=== PATIENT | female | born 1985 | race Caucasian/White ===

== ENCOUNTER 2019-04-05 06:00 | Outpatient (RCR) | payer MEDICARE, MEDICAID, SELFPAY | END 2019-05-05 00:01 | LOC: SPT 06:00 | PROVIDERS: Family Provider Nurse Practitioner Family; Visit Provider Orthopaedic Surgery | DX: E76.219 Morquio mucopolysaccharidoses, unspecified (principal); M54.9 Dorsalgia, unspecified | CPT/HCPCS: 97110; 97140 ==

== ENCOUNTER → 2019-05-05 | Outpatient (CLI) | payer MEDICARE, MEDICAID, SELFPAY | PROVIDERS: Family Provider Nurse Practitioner Family; Visit Provider Nurse Practitioner | DX: E00-E89 Endocrine, nutritional and metabolic diseases (principal) | CPT/HCPCS: 96365; 96366; 96367; J1322; J1642; J2405; J7040; J7050 ==

== ENCOUNTER 2019-05-06 13:14 | Outpatient (RCR) | payer MEDICARE, MEDICAID, SELFPAY | END 2019-06-05 23:59 | disposition home or self-care (01) | LOC: SPT 13:14 | PROVIDERS: Family Provider Nurse Practitioner Family; PCP Internal Medicine Medical Oncology; Visit Provider Orthopaedic Surgery | DX: M54.9 Dorsalgia, unspecified (principal); E76.219 Morquio mucopolysaccharidoses, unspecified | CPT/HCPCS: 97140; 97164 ==

== ENCOUNTER 2019-05-13 07:58 | Outpatient (CLI) | payer MEDICARE, MEDICAID, SELFPAY ==
[2019-05-13] MEDS: diphenhydrAMINE 25 mg Capsule 50 MG PO (08:40)
[2019-05-13] MEDS: famotidine 20 mg Tablet PO (08:40)
[2019-05-13] MEDS: acetaminophen 325 mg Tablet 650 MG PO (08:40)
[2019-05-13] MEDS: sodium chloride 0.9% 250 ML 75 ML IV (08:56)
[2019-05-13] MEDS: LORazepam 0.5 mg Tablet PO (12:20)
== END 2019-05-13 07:59 | disposition home or self-care (01) ==
LOC: ONCMED 08:03
PROVIDERS: Family Provider Nurse Practitioner Family; PCP Internal Medicine Medical Oncology; Visit Provider Nurse Practitioner
DX: E00-E89 Endocrine, nutritional and metabolic diseases (principal)
CPT/HCPCS: 96365; 96366; 96367; A4222; J1322; J2405; J7050

== ENCOUNTER 2019-05-20 07:44 | Outpatient (CLI) | payer MEDICARE, MEDICAID, SELFPAY ==
[2019-05-20] MEDS: sodium chloride 0.9% 250 ML IV (08:23)
[2019-05-20] MEDS: famotidine 20 mg Tablet PO (08:23)
[2019-05-20] MEDS: acetaminophen 325 mg Tablet 650 MG PO (08:23)
[2019-05-20] MEDS: diphenhydrAMINE 25 mg Capsule 50 MG PO (08:23)
[2019-05-20 10:06] LABS: Alanine Aminotransferase 22 U/L (0-33); Albumin Level 4.5 g/dL (3.5-5.2); Alkaline Phosphatase 82 IU/L (35-105); Aspartate Amino Transferase 21 U/L (0-32); Blood Urea Nitrogen 24 mg/dL (6-20); Carbon Dioxide 22 mmol/L (22-29); Chloride 102 mmol/L (98-107); Globulin 2.1 g/dL (1.3-4.6); Glomerular Filtration Rate 57.6 mL/min (90-130); Glucose 88 mg/dL (74-109); Sodium 138 mmol/L (136-145); Total Bilirubin 0.3 mg/dL (0.15-1.2); Total Protein 6.6 g/dL (6.6-8.7)
== END 2019-05-20 07:45 | disposition home or self-care (01) ==
LOC: ONCMED 07:47
PROVIDERS: Family Provider Nurse Practitioner Family; PCP Internal Medicine Medical Oncology; Visit Provider Nurse Practitioner
DX: E00-E89 Endocrine, nutritional and metabolic diseases (principal)
CPT/HCPCS: 80053; 96365; 96366; 96367; J1322; J2405; J7050

== ENCOUNTER 2019-05-27 08:21 | Outpatient (CLI) | payer MEDICARE, MEDICAID, SELFPAY ==
[2019-05-27] MEDS: acetaminophen 325 mg Tablet 650 MG PO (08:52)
[2019-05-27] MEDS: diphenhydrAMINE 25 mg Capsule 50 MG PO (08:52)
[2019-05-27] MEDS: famotidine 20 mg Tablet PO (08:52)
[2019-05-27 08:58] LABS: Basophils % 0.3 %; Eosinophils # 0.6 10^3/uL (0.0-0.8); Eosinophils % 4.6 %; Hemoglobin 12.4 g/dL (11.5-15.3); Lymphocytes # 2.4 10^3/uL (0.8-4.8); Mean Corpuscular HGB Conc 33.5 g/dL (30.0-36.0); Mean Corpuscular Hemoglobin 27.9 pg (28.0-34.0); Mean Corpuscular Volume 83.1 fL (81-99); Mean Platelet Volume 11.2 fL (7.4-10.4); Monocytes # 1.3 10^3/uL (0.2-0.9); Monocytes % 10.7 %; Neutrophils # 7.6 10^3/uL (1.8-7.7); Neutrophils % 64.1 %; Nucleated Red Blood Cells % 0 %; Platelet Count 333 10^3/cmm (130-400); Red Blood Count 4.45 10^6/uL (4.1-5.3); Red Cell Distribution Width 13.9 % (12.1-15.1); White Blood Count 11.9 10^3/uL (4.0-10.0)
[2019-05-27] MEDS: sodium chloride 0.9% 500 ML 100 ML IV (08:58)
[2019-05-27 09:09] LABS: Alanine Aminotransferase 22 U/L (0-33); Albumin Level 4.5 g/dL (3.5-5.2); Alkaline Phosphatase 101 IU/L (35-105); Anion Gap 17.9 (5-19); Aspartate Amino Transferase 27 U/L (0-32); Blood Urea Nitrogen 19 mg/dL (6-20); Calcium 10.2 mg/Dl (8.6-10.0); Carbon Dioxide 26 mmol/L (22-29); Chloride 94 mmol/L (98-107); Glomerular Filtration Rate 83.1 mL/min (90-130); Glucose 105 mg/dL (74-109); Potassium 2.9 mmol/L (3.5-5.1); Sodium 135 mmol/L (136-145); Total Bilirubin 0.4 mg/dL (0.15-1.2); Total Protein 7.5 g/dL (6.6-8.7)
[2019-05-27] MEDS: potassium chloride 40 MEQ in sodium chloride 0.9% 500 ML 130 MEQ IV (10:33)
== END 2019-05-27 08:22 | disposition home or self-care (01) ==
LOC: ONCMED 08:23
PROVIDERS: Family Provider Nurse Practitioner Family; PCP Internal Medicine Medical Oncology; Visit Provider Nurse Practitioner
DX: E00-E89 Endocrine, nutritional and metabolic diseases (principal)
CPT/HCPCS: 80053; 85025; 96365; 96366; 96367; J1322; J2405; J3480; J7040; J7050

== ENCOUNTER 2019-06-03 08:17 | Outpatient (CLI) | payer MEDICARE, MEDICAID, SELFPAY ==
[2019-06-03] MEDS: acetaminophen 325 mg Tablet 650 MG PO (08:45)
[2019-06-03] MEDS: famotidine 20 mg Tablet PO (08:45)
[2019-06-03] MEDS: sodium chloride 0.9% 500 ML 100 ML IV (08:45)
[2019-06-03] MEDS: diphenhydrAMINE 25 mg Capsule 50 MG PO (08:45)
[2019-06-03 09:14] LABS: Anion Gap 16.7 (5-19); Blood Urea Nitrogen 20 mg/dL (6-20); Calcium 10.1 mg/dL (8.5-10.5); Carbon Dioxide 24 mmol/L (22-29); Chloride 98 mmol/L (98-107); Glucose 144 mg/dL (74-109); Osmolality Calculated 279 mOsm/kg (285-295); Potassium 3.7 mmol/L (3.5-5.1); Sodium 135 mmol/L (136-145)
== END 2019-06-03 08:18 | disposition home or self-care (01) ==
LOC: ONCMED 08:21
PROVIDERS: Family Provider Nurse Practitioner Family; Visit Provider Nurse Practitioner
DX: E00-E89 Endocrine, nutritional and metabolic diseases (principal)
CPT/HCPCS: 80048; 96365; 96366; 96367; J1322; J2405; J7040; J7050

== ENCOUNTER 2019-06-06 06:00 | Outpatient (RCR) | payer MEDICARE, MEDICAID, SELFPAY | END 2019-07-04 23:59 | disposition home or self-care (01) | LOC: SPT 06:00 | PROVIDERS: Family Provider Nurse Practitioner Family; PCP Internal Medicine Medical Oncology; Referring Provider Orthopaedic Surgery; Visit Provider Orthopaedic Surgery | DX: M54.9 Dorsalgia, unspecified (principal); E76.219 Morquio mucopolysaccharidoses, unspecified | CPT/HCPCS: 97140; 97164 ==

== ENCOUNTER 2019-06-10 07:50 | Outpatient (CLI) | payer MEDICARE, MEDICAID, SELFPAY ==
[2019-06-10] MEDS: diphenhydrAMINE 25 mg Capsule 50 MG PO (08:20)
[2019-06-10] MEDS: acetaminophen 325 mg Tablet 650 MG PO (08:20)
[2019-06-10] MEDS: famotidine 20 mg Tablet PO (08:20)
[2019-06-10] MEDS: sodium chloride 0.9% 500 ML 100 ML IV (08:50)
== END 2019-06-10 07:51 | disposition home or self-care (01) ==
LOC: ONCMED 07:54
PROVIDERS: Family Provider Nurse Practitioner Family; PCP Internal Medicine Medical Oncology; Visit Provider Nurse Practitioner
DX: E00-E89 Endocrine, nutritional and metabolic diseases (principal)
CPT/HCPCS: 96365; 96366; 96367; J1322; J2405; J7040; J7050

== ENCOUNTER 2019-06-17 07:38 | Outpatient (CLI) | payer MEDICARE, MEDICAID, SELFPAY ==
[2019-06-17] MEDS: famotidine 20 mg Tablet PO (08:30)
[2019-06-17] MEDS: acetaminophen 325 mg Tablet 650 MG PO (08:30)
[2019-06-17] MEDS: diphenhydrAMINE 25 mg Capsule 50 MG PO (08:30)
[2019-06-17] MEDS: sodium chloride 0.9% 500 ML 100 ML IV (08:45)
[2019-06-17] MEDS: LORazepam 0.5 mg Tablet PO (09:03)
== END 2019-06-17 07:39 | disposition home or self-care (01) ==
LOC: ONCMED 07:41
PROVIDERS: Family Provider Nurse Practitioner Family; PCP Internal Medicine Medical Oncology; Visit Provider Nurse Practitioner
DX: E00-E89 Endocrine, nutritional and metabolic diseases (principal)
CPT/HCPCS: 96365; 96366; 96367; J1322; J2405; J7040; J7050

== ENCOUNTER 2019-06-24 08:14 | Outpatient (CLI) | payer MEDICARE, MEDICAID, SELFPAY ==
[2019-06-24] MEDS: sodium chloride 0.9% 500 ML 100 ML IV (08:30)
[2019-06-24] MEDS: acetaminophen 325 mg Tablet 650 MG PO (08:35)
[2019-06-24] MEDS: famotidine 20 mg Tablet PO (08:35)
[2019-06-24] MEDS: diphenhydrAMINE 25 mg Capsule 50 MG PO (08:35)
[2019-06-24 10:45] VITALS: RESP 17; O2SAT 99
[2019-06-24] MEDS: oxyCODONE 5 mg IR Tab/Cap PO (10:45)
== END 2019-06-24 08:15 | disposition home or self-care (01) ==
LOC: ONCMED 08:14
PROVIDERS: Family Provider Nurse Practitioner Family; Visit Provider Nurse Practitioner
DX: E00-E89 Endocrine, nutritional and metabolic diseases (principal)
CPT/HCPCS: 96365; 96366; 96367; J1322; J2405; J7040; J7050

== ENCOUNTER 2019-06-30 07:59 | Outpatient (CLI) | payer MEDICARE, MEDICAID, SELFPAY ==
[2019-06-30] MEDS: acetaminophen 325 mg Tablet 650 MG PO (08:34)
[2019-06-30] MEDS: diphenhydrAMINE 25 mg Capsule 50 MG PO (08:34)
[2019-06-30] MEDS: sodium chloride 0.9% 500 ML 75 ML IV (08:34)
[2019-06-30] MEDS: famotidine 20 mg Tablet PO (08:34)
[2019-06-30] MEDS: oxyCODONE 5 mg IR Tab/Cap PO (08:52)
== END 2019-06-30 08:00 | disposition home or self-care (01) ==
LOC: ONCMED 08:01
PROVIDERS: Family Provider Nurse Practitioner Family; Visit Provider Nurse Practitioner
DX: E00-E89 Endocrine, nutritional and metabolic diseases (principal)
CPT/HCPCS: 96365; 96366; 96367; J1322; J2405; J7040; J7050

== ENCOUNTER 2019-07-05 06:00 | Outpatient (RCR) | payer MEDICARE, MEDICAID, SELFPAY | END 2019-08-04 23:59 | disposition home or self-care (01) | LOC: SPT 06:00 | PROVIDERS: Family Provider Nurse Practitioner Family; Referring Provider Orthopaedic Surgery; Visit Provider Orthopaedic Surgery | DX: M54.9 Dorsalgia, unspecified (principal); E76.219 Morquio mucopolysaccharidoses, unspecified | CPT/HCPCS: 97140 ==

== ENCOUNTER 2019-07-08 08:05 | Outpatient (CLI) | payer MEDICARE, MEDICAID, SELFPAY ==
[2019-07-08] MEDS: sodium chloride 0.9% 250 ML 75 ML IV (08:20)
[2019-07-08] MEDS: acetaminophen 325 mg Tablet 650 MG PO (08:33)
[2019-07-08] MEDS: famotidine 20 mg Tablet PO (08:33)
[2019-07-08] MEDS: diphenhydrAMINE 25 mg Capsule 50 MG PO (08:33)
[2019-07-08] MEDS: LORazepam 0.5 mg Tablet PO (10:04)
== END 2019-07-08 08:06 | disposition home or self-care (01) ==
LOC: ONCMED 08:09
PROVIDERS: Family Provider Nurse Practitioner Family; PCP Internal Medicine Medical Oncology; Visit Provider Nurse Practitioner
DX: E00-E89 Endocrine, nutritional and metabolic diseases (principal)
CPT/HCPCS: 96365; 96366; 96367; J1322; J2405; J7050

== ENCOUNTER 2019-07-15 06:06 | Outpatient (CLI) | payer MEDICARE, MEDICAID, SELFPAY ==
[2019-07-15 08:29] LABS: Basophils % 0.5 %; Eosinophils # 0.4 10^3/uL (0.0-0.8); Eosinophils % 4.5 %; Hematocrit 35.4 % (37.0-47.0); Hemoglobin 11.2 g/dL (11.5-15.3); Lymphocytes # 2.1 10^3/uL (0.8-4.8); Lymphocytes % 25.4 %; Mean Corpuscular HGB Conc 31.6 g/dL (30.0-36.0); Mean Corpuscular Hemoglobin 27.1 pg (28.0-34.0); Mean Corpuscular Volume 85.5 fL (81-99); Mean Platelet Volume 11.3 fL (7.4-10.4); Monocytes # 0.5 10^3/uL (0.2-0.9); Monocytes % 6.1 %; Neutrophils # 5.3 10^3/uL (1.8-7.7); Neutrophils % 63.3 %; Nucleated Red Blood Cells % 0 %; Platelet Count 302 10^3/cmm (130-400); Red Blood Count 4.14 10^6/uL (4.1-5.3); Red Cell Distribution Width 13.9 % (12.1-15.1); White Blood Count 8.4 10^3/uL (4.0-10.0)
[2019-07-15] MEDS: sodium chloride 0.9% 500 ML 100 ML IV (08:36)
[2019-07-15] MEDS: acetaminophen 325 mg Tablet 650 MG PO (08:36)
[2019-07-15] MEDS: oxyCODONE 5 mg IR Tab/Cap PO (08:36)
[2019-07-15] MEDS: famotidine 20 mg Tablet PO (08:36)
[2019-07-15] MEDS: diphenhydrAMINE 25 mg Capsule 50 MG PO (08:36)
[2019-07-15 08:48] LABS: Alanine Aminotransferase 14 U/L (0-33); Alkaline Phosphatase 76 IU/L (35-105); Anion Gap 17.3 (5-19); Aspartate Amino Transferase 21 U/L (0-32); Blood Urea Nitrogen 15 mg/dL (6-20); Calcium 9.9 mg/dL (8.5-10.5); Carbon Dioxide 22 mmol/L (22-29); Chloride 102 mmol/L (98-107); Globulin 2.7 g/dL (1.3-4.6); Glomerular Filtration Rate 83.1 mL/min (90-130); Glucose 92 mg/dL (65-115); Osmolality Calculated 280 mOsm/kg (285-295); Potassium 4.3 mmol/L (3.5-5.1); Sodium 137 mmol/L (136-145); Total Bilirubin 0.2 mg/dL (0.15-1.2); Total Protein 6.7 g/dL (6.6-8.7)
[2019-07-15 10:21] LABS: Iron 40 ug/dL (37-145); Percent Saturation 13.2 % (20-50); Total Iron Binding Capacity 303 mcg/dl; Unsaturated Iron Binding 263 ug/dL (112-347)
--- NOTE | 2019-07-19 09:15 | ONC FU_ITS ---
Dr. Ramirez Patient Follow-Up Note Patient: Elisa Campbell Unit #: [id number]: [id number] Dicatated By: Leon Ramirez M.D.Date of Visit:Jul 15, 2019 Onc Med Follow-up/Prog Note Chief Complaint: Mucopolysaccharidosis type IV-A. History of Present Illness: This is a 33 year-old woman with mucopolysaccharidosis type IV-A (Morquio type A ). She had been seen by a geologist and by a genetic counselor at the [facility] during a hospital admission in February 2014. Subsequent studies did confirm a diagnosis of Morquio type A mucoploysaccharidosis. It was suggested at that time that she may want to consider the possibility of initiating a trial of therapy with Vimizin. After receiving further information about the medication, she did opt for treatment, which she started in July 2014. It is administered weekly by IV infusion, and she is receiving treatment here for her convenience, as she felt it would be difficult for her to travel to [place] for it. Subjectively, she had some improvement in her musculoskeletal pain with the treatment, and she had improvement in her performance status. She presented to the [place] room [place] [facility] [place] with vomiting, abdominal pain, and diarrhea. She was transferred to [facility] in [place] and admitted to the hospital. Her GI evaluation apparently was unrevealing. She was discharged home on 06/24/2016 on Zofran ODT 8 mg and pantoprazole 40 mg daily. She has had follow-up with the aircraft armorer, and he apparently felt that the problem was related to the underlying gastroparesis. During her further follow-up she has on occasion required treatment for hypokalemia. She continued her weekly infusions of elosulfase genoveva. Her medical illnesses, in addition to Morquio type A mucopolysaccharidosis , include hypertension, mild asthma, GERD, gastroparesis, and chronic migraine. She has degenerative arthritis, and she also has anxiety/depression. She underwent left total hip arthroplasty in December 2015 and right total hip arthroplasty in March 2016. She is a nonsmoker. INTERIM HISTORY: In April 2019 she began to complain of abdominal pain. Her CT abdomen/pelvis on 04/20/2019 showed no acute findings. On 04/24/2019 she presented to the emergency room with persistent right upper quadrant pain. Gallbladder ultrasound was normal. Her liver enzymes, though, were markedly elevated with SGOT 3530 U/L and SGPT 3306 U/L. Her total bilirubin was normal at 0.4 mg/dL and the alkaline phosphatase was just slightly elevated at 138/105 IU/L. Her viral hepatitis serology was negative. She was transferred to the [facility] for admission, and she improved with conservative management. I do not think a specific cause for the illness was ever determined. During the course of that hospitalization, though, she apparently was found to have evidence of pulmonary embolism, and she did start anticoagulation with apixaban. Following discharge she was able to restart her weekly elosulfase genoveva infusions. She is seen for a scheduled visit. She says she was feeling really good last week, but not very good lately. Her energy has been down. Her ECOG score is 1. She has not had good appetite, but she has been gaining weight, and she thinks she is retaining fluid. She has not had fever. She does have some hot flashes and sweating. She says she has been off Depo-Provera injections since April due to the blood clot in her lung. She has remained on anticoagulation with apixaban. She says her breathing varies, but it has been rough the last couple of days. She has had some cough productive of light yellow sputum. She has not been having chest pain. She recently had some vomiting and diarrhea, possibly a viral gastroenteritis. Her nausea has otherwise not been as bad. She has not been having abdominal pain. She was having some bladder incontinence for a while, but that resolved. She has no other complaints. She has chronic musculoskeletal pain, which is tolerable with her medication. She has been having more headaches, as she also has been off her Botox injections. She has had some skin sensitivity/hypesthesia in her upper left arm. She has no other focal neurologic symptoms. Medications: Albuterol Sulfate HFA Aerosol, solution Inhalation PRN, Ativan (1 mg) Tablet Oral b.i.d. PRN, Benadryl 1 Capsule (of 25 mg) Oral q 6 hours PRN, Botox Injection Take as Directed, Coreg 1 Tablet (of 25 mg) Oral daily, Depo-Provera 150 mg (of 400 mg/mL) Intramuscular q 90 days, Effexor XR 1 Capsule (of 150 mg) Capsule SR 24 HR Oral daily, Eliquis 1 Tablet (of 2.5 mg) Oral daily, Erythromycin Base 1 Capsule (of 250 mg) Capsule Delayed Release Particles Oral four times a day, hydroCHLOROthiazide 1 Tablet (of 25 mg) Oral daily, Lasix 1 (5 mg) Tablet Oral daily PRN, Lisinopril 2.5 Tablet (of 2.5 mg) Oral daily PRN, Marinol 1 (2.5 mg) Capsule Oral b.i.d. PRN, Mobic 1 Tablet (of 7.5 mg) Oral b.i.d., Ondansetron HCl 1 (4 mg) Tablet Oral q 8 hours PRN, Pepcid 1 Tablet (of 40 mg) Oral daily, Potassium Chloride Laura ER 1 (40 meq) Tablet, controlled release Oral daily, TiZANidine HCl 1 (4 mg) Tablet Oral t.i.d. PRN Allergies: ADHESIVE, AZITHROMYCIN, COMPAZINE, GABAPENTIN, METOCLOPRAMIDE, and TraMADol HCl. Review of Systems: Constitutional - Her energy level is low and her appetite comes and goes. Her weight is up about 3 pounds from last visit and up about 11 pounds from May. No fever or chills. She is having hot flashes and night sweats. ECOG score is 1, Eyes - She has had some alteration in the vision in her right eye, but it is improving, ENMT - She is having sinus congestion/drainage. She is getting some benefit with Zytrec . No mouth sores. She has a sore throat. No difficulty swallowing. Her reports that her hearing loss has improved, Hematologic/Lymphatic - No abnormal bruising or bleeding, Respiratory - She reports some increased shortness of breath. She has a productive cough with yellow sputum at times. No pleuritic pain or hemoptysis, Cardiovascular - No angina pain. No palpitations, Gastrointestinal - No nausea or vomiting. No heartburn or acid reflux. She recently had diarrhea. No constipation. No blood in the stool or black stools, Genitourinary (F) - No dysuria or hematuria. No urinary frequency. She did have some incontinence, but it improved. She thinks she is retaining fluid, Musculoskeletal - She has generalized pain that is adequately controlled with pain medications, Neurologic - She has chronic migraine for which she has been receiving Botox injections. She has had some dizziness today. No numbness/paresthesias or other focal neurologic symptoms, Psychiatric - No anxiety. She feels like her depression has worsened. No insomnia. Vital Signs: Performed on Jul 15, 2019 09:08 Height - 47.00 in Weight - 115.2 lbs (HIGH) BSA - 1.24 sq.m BMI - 36.67 (HIGH) Temperature - 98.1 F (LOW) Pulse - 80 /min Respiration - 18 /min BP - 119/76 mm(hg) O2 Sat - 99 % Pain - 7 Physical Examination: Constitutional - She does not appear acutely ill, Eyes - Sclerae nonicteric. Conjunctivae clear, ENMT - No lesions noted in the oral cavity, Hematologic/Lymphatic - No cervical, clavicular, or axillary adenopathy, Respiratory - Lungs sound clear with diminished air movement bilaterally, Cardiovascular - Heart rhythm is regular. There is a II/ systolic murmur. There is no gallop or rub noted, Abdomen - Mildly distended but soft. There is a possible fluid wave. Liver and spleen are not enlarged. There is no abdominal mass noted and there is no inguinal adenopathy, Extremities - There is some slight swelling of the hands and feet, Neurologic - No focal neurologic deficits noted. Lab/Imaging: Test performed on Jul 15, 2019 08:10 Iron 40 ug/dL Sodium 137 mmol/L Iron Binding Capacity (TIBC) 303 mcg/dl Potassium 4.3 mmol/L % Iron Saturation 13.2 % Chloride 102 mmol/L CO2 22 mmol/L UIBC 263 ug/dL Anion Gap 17.3 BUN 15 mg/dL Creatinine 0.8 mg/dL Cr Clearance (Est) 78.9400 mL/min eGFR 83.1 mL/min Glucose 92 mg/dL Calcium 9.9 mg/dL Protein, Total 6.7 g/dL Albumin 4.0 g/dL Globulin 2.7 g/dL Bilirubin, Total 0.2 mg/dL ALT (SGPT) 14 U/L AST (SGOT) 21 U/L Alkaline Phosphatase 76 IU/L WBC 8.4 10 3/uL RBC 4.14 10 6/uL HGB 11.2 g/dL HCT 35.4 % MCV 85.5 fL MCH 27.1 pg MCHC 31.6 g/dL RDW 13.9 % Platelet Count 302 10 3/cmm MPV 11.3 fL Neutrophils 5.3 10 3/uL Lymphocytes 2.1 10 3/uL Monocytes 0.5 10 3/uL Eosinophils 0.4 10 3/uL Basophils 0.0 10 3/uL Neutrophil % 63.3 % Lymphocyte % 25.4 % Monocyte % 6.1 % Eosinophil % 4.5 % Basophils % 0.5 % Impression: 1. The patient has Morquio type A (mucopolysaccharidosis IV-A). She has been undergoing treatment with elosulfase genoveva. It is administered weekly by IV infusion. Thus far she has tolerated the treatment well. She had noted improvement in her muscle pain and in her energy/activity tolerance. Overall she had noticed a big difference with the treatment. 2. She has chronic musculoskeletal pain. Her other medical illnesses include: 3. Hypertension. 4. Mild asthma. 5. GERD. 6. Gastroparesis. 7. Degenerative arthritis. 8. Chronic migraine. 9. Chronic anxiety/depression. In June 2016 she was admitted to the hospital with increased nausea/vomiting. She underwent evaluation with a aircraft armorer in [place], and he felt that the problems were related to the underlying gastroparesis. Her symptoms improved with addition of pantoprazole 40 mg daily and ondansetron 8 mg as needed. She had gradual recovery following her total hip arthroplasty procedures in December and in March 2016, and she continued weekly infusions of elosulfase genoveva. In April 2019 she had presented with right upper quadrant abdominal pain and markedly elevated liver enzymes. Her CT abdomen/pelvis and gallbladder ultrasound were unrevealing. She was admitted to the hospital at the [facility]. She recovered with conservative management. To my knowledge a specific cause for that illness was not determined, but during the hospitalization she was found to have pulmonary embolism, for which she has been on anticoagulation with apixaban. Recently she has been more fatigued. She has gained weight despite having decreased appetite and oral intake, and she thinks she may be retaining fluid. She has become mildly anemic with transferrin saturation low at 13%, consistent with iron deficiency. Her liver enzymes are normal. Plan: She will continue elosulfase genoveva 2 mg/kg by IV infusion weekly. She will begin oral iron supplementation, but due to her underlying gastroparesis and chronic GI symptoms, I am going to limit that to a multiple vitamin with iron. She will restart furosemide 20 mg daily, as she does appear to have some fluid retention. I also will increase her venlafaxine dosage to 150 mg daily, as she has reported worsening depression. She returns weekly for her infusions. Her lab studies will be monitored monthly. She will be seen for a follow-up visit in 3 months, or sooner as needed. Signed By: Leon Ramirez M.D. <<Signature on File>>
== END 2019-07-15 06:07 | disposition home or self-care (01) ==
LOC: ONCMED 06:09
PROVIDERS: Family Provider Nurse Practitioner Family; Visit Provider Internal Medicine Medical Oncology
DX: E00-E89 Endocrine, nutritional and metabolic diseases (principal); D50.9 Iron deficiency anemia, unspecified; R60.9 Edema, unspecified; I10 Essential (primary) hypertension; J45.20 Mild intermittent asthma, uncomplicated; K21.9 Gastro-esophageal reflux disease without esophagitis; K31.84 Gastroparesis; G43.709 Chronic migraine without aura, not intractable, without status migrainosus; M19.90 Unspecified osteoarthritis, unspecified site; F41.8 Other specified anxiety disorders; F32.9 Major depressive disorder, single episode, unspecified; Z79.01 Long term (current) use of anticoagulants; Z79.51 Long term (current) use of inhaled steroids; Z79.899 Other long term (current) drug therapy; Z86.711 Personal history of pulmonary embolism; Z96.643 Presence of artificial hip joint, bilateral
CPT/HCPCS: 80053; 83540; 83550; 85025; 96365; 96366; 96367; 99214; J1322; J2405; J7040; J7050

== ENCOUNTER 2019-07-22 06:11 | Outpatient (CLI) | payer MEDICARE, MEDICAID, SELFPAY ==
[2019-07-22] MEDS: acetaminophen 325 mg Tablet 650 MG PO (08:20)
[2019-07-22] MEDS: famotidine 20 mg Tablet PO (08:20)
[2019-07-22] MEDS: diphenhydrAMINE 25 mg Capsule 50 MG PO (08:20)
[2019-07-22] MEDS: sodium chloride 0.9% 250 ML 75 ML IV (13:35)
== END 2019-07-22 06:12 | disposition home or self-care (01) ==
LOC: ONCMED 06:13
PROVIDERS: Family Provider Nurse Practitioner Family; Visit Provider Internal Medicine Medical Oncology
DX: E00-E89 Endocrine, nutritional and metabolic diseases (principal)
CPT/HCPCS: 96365; 96366; 96367; J1322; J2405; J7050

== ENCOUNTER 2019-07-29 05:57 | Outpatient (CLI) | payer MEDICARE, MEDICAID, SELFPAY ==
[2019-07-29] MEDS: diphenhydrAMINE 25 mg Capsule 50 MG PO (08:30)
[2019-07-29] MEDS: famotidine 20 mg Tablet PO (08:30)
[2019-07-29] MEDS: acetaminophen 325 mg Tablet 650 MG PO (08:30)
[2019-07-29] MEDS: sodium chloride 0.9% 500 ML 75 ML IV (16:12)
== END 2019-07-29 05:58 | disposition home or self-care (01) ==
LOC: ONCMED 05:57
PROVIDERS: Family Provider Nurse Practitioner Family; Visit Provider Internal Medicine Medical Oncology
DX: E00-E89 Endocrine, nutritional and metabolic diseases (principal)
CPT/HCPCS: 96365; 96366; 96367; J1322; J2405; J7040; J7050

== ENCOUNTER 2019-08-05 06:00 | Outpatient (RCR) | payer MEDICARE, MEDICAID, SELFPAY | END 2019-09-03 23:59 | disposition home or self-care (01) | LOC: SPT 06:00 | PROVIDERS: Family Provider Nurse Practitioner Family; PCP Nurse Practitioner Family; Referring Provider Orthopaedic Surgery; Visit Provider Orthopaedic Surgery | DX: M54.9 Dorsalgia, unspecified (principal); E76.219 Morquio mucopolysaccharidoses, unspecified | CPT/HCPCS: 97110; 97140; 97164 ==

== ENCOUNTER 2019-08-05 06:44 | Outpatient (CLI) | payer MEDICARE, MEDICAID, SELFPAY ==
[2019-08-05] MEDS: famotidine 20 mg Tablet PO (08:26)
[2019-08-05] MEDS: acetaminophen 325 mg Tablet 650 MG PO (08:26)
[2019-08-05] MEDS: oxyCODONE 5 mg IR Tab/Cap PO ×2 (08:26→13:00)
[2019-08-05] MEDS: sodium chloride 0.9% 500 ML 100 ML IV (08:26)
[2019-08-05] MEDS: diphenhydrAMINE 25 mg Capsule 50 MG PO (08:26)
[2019-08-05] MEDS: LORazepam 0.5 mg Tablet PO (10:13)
== END 2019-08-05 06:45 | disposition home or self-care (01) ==
LOC: ONCMED 06:44
PROVIDERS: Family Provider Nurse Practitioner Family; PCP Nurse Practitioner Family; Visit Provider Internal Medicine Medical Oncology
DX: E00-E89 Endocrine, nutritional and metabolic diseases (principal)
CPT/HCPCS: 96365; 96366; 96367; J1322; J2405; J7040; J7050

== ENCOUNTER → 2019-08-06 09:45 | Outpatient (BNVA) | payer MEDICARE, MEDICAID, SELFPAY | PROVIDERS: Family Provider Nurse Practitioner Family; PCP Nurse Practitioner Family; Referring Provider Specialist; Visit Provider Specialist | DX: G43.711 Chronic migraine without aura, intractable, with status migrainosus (principal); F90.0 Attention-deficit hyperactivity disorder, predominantly inattentive type; E76.219 Morquio mucopolysaccharidoses, unspecified | CPT/HCPCS: 64615; 99213; J0585 ==

== ENCOUNTER 2019-08-12 07:47 | Outpatient (CLI) | payer MEDICARE, MEDICAID, SELFPAY ==
[2019-08-12] MEDS: acetaminophen 325 mg Tablet 650 MG PO (08:34)
[2019-08-12] MEDS: diphenhydrAMINE 25 mg Capsule 50 MG PO (08:34)
[2019-08-12] MEDS: famotidine 20 mg Tablet PO (08:34)
[2019-08-12 09:46] LABS: Basophils % 0.4 %; Eosinophils # 0.2 10^3/uL (0.0-0.8); Eosinophils % 1.9 %; Hematocrit 32.7 % (37.0-47.0); Hemoglobin 10.9 g/dL (11.5-15.3); Lymphocytes # 2.8 10^3/uL (0.8-4.8); Mean Corpuscular HGB Conc 33.3 g/dL (30.0-36.0); Mean Corpuscular Hemoglobin 27.9 pg (28.0-34.0); Mean Corpuscular Volume 83.8 fL (81-99); Mean Platelet Volume 11.3 fL (7.4-10.4); Monocytes # 0.6 10^3/uL (0.2-0.9); Monocytes % 6.6 %; Neutrophils # 5.4 10^3/uL (1.8-7.7); Neutrophils % 59.8 %; Nucleated Red Blood Cells % 0 %; Platelet Count 262 10^3/cmm (130-400); Red Cell Distribution Width 13.6 % (12.1-15.1)
[2019-08-12 10:04] LABS: Alanine Aminotransferase 10 U/L (0-33); Albumin Level 4.3 g/dL (3.5-5.2); Alkaline Phosphatase 101 IU/L (35-105); Anion Gap 19.4 (5-19); Aspartate Amino Transferase 17 U/L (0-32); Blood Urea Nitrogen 24 mg/dL (6-20); Calcium 9.5 mg/dL (8.5-10.5); Carbon Dioxide 23 mmol/L (22-29); Chloride 92 mmol/L (98-107); Ferritin 55 ng/mL (15-150); Glomerular Filtration Rate 30.6 mL/min (90-130); Glucose 93 mg/dL (65-115); Iron 41 ug/dL (37-145); Osmolality Calculated 268 mOsm/kg (285-295); Potassium 3.4 mmol/L (3.5-5.1); Sodium 131 mmol/L (136-145); Total Bilirubin 0.2 mg/dL (0.15-1.2); Total Iron Binding Capacity 273 mcg/dl; Total Protein 7.3 g/dL (6.6-8.7); Unsaturated Iron Binding 232 ug/dL (112-347)
[2019-08-12] MEDS: potassium chloride 20 MEQ in sodium chloride 0.9% 500 ML 500 MEQ IV (14:05)
[2019-08-12 14:30] VITALS: RESP 19
[2019-08-12] MEDS: oxyCODONE 5 mg IR Tab/Cap PO ×2 (14:30→14:48)
[2019-08-12 14:48] VITALS: RESP 18; O2SAT 97
[2019-08-12] MEDS: sodium chloride 0.9% 500 ML IV (14:48)
== END 2019-08-12 07:48 | disposition home or self-care (01) ==
LOC: ONCMED 07:47
PROVIDERS: Family Provider Nurse Practitioner Family; PCP Nurse Practitioner Family; Visit Provider Internal Medicine Medical Oncology
DX: E00-E89 Endocrine, nutritional and metabolic diseases (principal); D64.9 Anemia, unspecified
CPT/HCPCS: 80053; 82728; 83540; 83550; 85025; 96365; 96366; 96367; J1322; J2405; J3480; J7040; J7050

== ENCOUNTER 2019-08-13 11:55 | Outpatient (CLI) | payer MEDICARE, MEDICAID, SELFPAY ==
[2019-08-13] MEDS: loperamide 2 mg Capsule PO (09:49)
== END 2019-08-13 11:56 | disposition home or self-care (01) ==
LOC: ONCMED 11:55
PROVIDERS: Family Provider Nurse Practitioner Family; PCP Nurse Practitioner Family; Visit Provider Internal Medicine Medical Oncology
DX: E87.6 Hypokalemia (principal); R11.0 Nausea
CPT/HCPCS: 96365; 96366; 96367; J1100; J2405; J3480; J7030

== ENCOUNTER 2019-08-19 08:26 | Outpatient (CLI) | payer MEDICARE, MEDICAID, SELFPAY ==
[2019-08-19] MEDS: acetaminophen 325 mg Tablet 650 MG PO (08:32)
[2019-08-19] MEDS: sodium chloride 0.9% 500 ML 100 ML IV (08:32)
[2019-08-19] MEDS: famotidine 20 mg Tablet PO (08:32)
[2019-08-19] MEDS: oxyCODONE 5 mg IR Tab/Cap PO (08:32)
[2019-08-19] MEDS: diphenhydrAMINE 25 mg Capsule 50 MG PO (08:32)
[2019-08-19 09:12] LABS: Alanine Aminotransferase 16 U/L (0-33); Albumin Level 4.2 g/dL (3.5-5.2); Alkaline Phosphatase 80 IU/L (35-105); Anion Gap 17.1 (5-19); Aspartate Amino Transferase 21 U/L (0-32); Blood Urea Nitrogen 6 mg/dL (6-20); Calcium 10.4 mg/dL (8.5-10.5); Carbon Dioxide 28 mmol/L (22-29); Chloride 96 mmol/L (98-107); Globulin 2.8 g/dL (1.3-4.6); Glucose 104 mg/dL (65-115); Osmolality Calculated 282 mOsm/kg (285-295); Potassium 3.1 mmol/L (3.5-5.1); Sodium 138 mmol/L (136-145); Total Bilirubin 0.3 mg/dL (0.15-1.2)
== END 2019-08-19 08:27 | disposition home or self-care (01) ==
LOC: ONCMED 08:26
PROVIDERS: Family Provider Nurse Practitioner Family; PCP Nurse Practitioner Family; Visit Provider Internal Medicine Medical Oncology
DX: E00-E89 Endocrine, nutritional and metabolic diseases (principal)
CPT/HCPCS: 80053; 96365; 96366; 96367; J1322; J2405; J7040; J7050

== ENCOUNTER 2019-08-20 09:19 | Outpatient (CLI) | payer MEDICARE, MEDICAID, SELFPAY ==
[2019-08-20] MEDS: ondansetron 2 mg/ML SDV 2 mL 8 MG IV (08:55)
[2019-08-20] MEDS: sodium chlor 0.9% + KCl 40 mEq 40 MEQ/1,000 ML BAG 250 MEQ IV (08:57)
[2019-08-20] MEDS: oxyCODONE 5 mg IR Tab/Cap PO (10:48)
== END 2019-08-20 09:20 | disposition home or self-care (01) ==
LOC: ONCMED 09:20
PROVIDERS: Family Provider Nurse Practitioner Family; PCP Nurse Practitioner Family; Visit Provider Nurse Practitioner
DX: E87.6 Hypokalemia (principal); R11.0 Nausea
CPT/HCPCS: 96365; 96366; 96375; J2405

== ENCOUNTER 2019-08-26 12:38 | Outpatient (CLI) | payer MEDICARE, MEDICAID, SELFPAY ==
[2019-08-26] MEDS: famotidine 20 mg Tablet PO (08:25)
[2019-08-26] MEDS: acetaminophen 325 mg Tablet 650 MG PO (08:25)
[2019-08-26] MEDS: diphenhydrAMINE 25 mg Capsule 50 MG PO (08:25)
[2019-08-26] MEDS: sodium chloride 0.9% 500 ML 75 ML IV (08:45)
[2019-08-26 08:53] LABS: Basophils # 0.1 10^3/uL (0.0-0.1); Basophils % 0.5 %; Eosinophils # 0.3 10^3/uL (0.0-0.8); Eosinophils % 2.6 %; Hematocrit 38.3 % (37.0-47.0); Hemoglobin 12.6 g/dL (11.5-15.3); Lymphocytes # 3.3 10^3/uL (0.8-4.8); Lymphocytes % 26.7 %; Mean Corpuscular HGB Conc 32.9 g/dL (30.0-36.0); Mean Corpuscular Hemoglobin 27.6 pg (28.0-34.0); Mean Platelet Volume 10.8 fL (7.4-10.4); Monocytes # 0.8 10^3/uL (0.2-0.9); Monocytes % 6.3 %; Neutrophils # 7.8 10^3/uL (1.8-7.7); Neutrophils % 63.3 %; Nucleated Red Blood Cells % 0 %; Platelet Count 326 10^3/cmm (130-400); Red Blood Count 4.56 10^6/uL (4.1-5.3); White Blood Count 12.3 10^3/uL (4.0-10.0)
[2019-08-26 09:08] LABS: Alanine Aminotransferase 12 U/L (0-33); Albumin Level 4.6 g/dL (3.5-5.2); Alkaline Phosphatase 92 IU/L (35-105); Aspartate Amino Transferase 17 U/L (0-32); Blood Urea Nitrogen 20 mg/dL (6-20); Carbon Dioxide 22 mmol/L (22-29); Chloride 91 mmol/L (98-107); Ferritin 52 ng/mL (15-150); Globulin 3.3 g/dL (1.3-4.6); Glomerular Filtration Rate 83.1 mL/min (90-130); Glucose 98 mg/dL (65-115); Magnesium 1.8 mg/dL (1.7-2.3); Osmolality Calculated 269 mOsm/kg (285-295); Sodium 131 mmol/L (136-145); Total Bilirubin 0.2 mg/dL (0.15-1.2); Total Protein 7.9 g/dL (6.6-8.7)
[2019-08-26 09:22] VITALS: RESP 17; O2SAT 99
[2019-08-26] MEDS: oxyCODONE 5 mg IR Tab/Cap PO (09:22)
[2019-08-26] MEDS: potassium chloride 40 MEQ in sodium chloride 0.9% 500 ML 125 MEQ IV (12:00)
== END 2019-08-26 12:39 | disposition home or self-care (01) ==
LOC: ONCMED 12:38
PROVIDERS: Family Provider Nurse Practitioner Family; PCP Nurse Practitioner Family; Visit Provider Internal Medicine Medical Oncology
DX: E00-E89 Endocrine, nutritional and metabolic diseases (principal); D50.8 Other iron deficiency anemias
CPT/HCPCS: 80053; 82728; 83735; 85025; 96365; 96366; 96367; J1322; J2405; J3480; J7040; J7050

== ENCOUNTER 2019-09-02 09:38 | Outpatient (CLI) | payer MEDICARE, MEDICAID, SELFPAY ==
[2019-09-02] MEDS: sodium chloride 0.9% 500 ML 75 ML IV (08:15)
[2019-09-02] MEDS: diphenhydrAMINE 25 mg Capsule 50 MG PO (08:25)
[2019-09-02] MEDS: famotidine 20 mg Tablet PO (08:25)
[2019-09-02] MEDS: acetaminophen 325 mg Tablet 650 MG PO (08:25)
[2019-09-02 10:39] LABS: Alanine Aminotransferase 12 U/L (0-33); Albumin Level 4.4 g/dL (3.5-5.2); Alkaline Phosphatase 89 IU/L (35-105); Anion Gap 20.9 (5-19); Aspartate Amino Transferase 18 U/L (0-32); Blood Urea Nitrogen 29 mg/dL (6-20); Calcium 9.9 mg/dL (8.5-10.5); Carbon Dioxide 22 mmol/L (22-29); Chloride 97 mmol/L (98-107); Globulin 2.4 g/dL (1.3-4.6); Glomerular Filtration Rate 28.9 mL/min (90-130); Glucose 76 mg/dL (65-115); Osmolality Calculated 278 mOsm/kg (285-295); Potassium 3.9 mmol/L (3.5-5.1); Sodium 136 mmol/L (136-145); Total Bilirubin 0.2 mg/dL (0.15-1.2); Total Protein 6.8 g/dL (6.6-8.7)
== END 2019-09-02 09:39 | disposition home or self-care (01) ==
LOC: ONCMED 09:38
PROVIDERS: Family Provider Nurse Practitioner Family; PCP Nurse Practitioner Family; Visit Provider Internal Medicine Medical Oncology
DX: E00-E89 Endocrine, nutritional and metabolic diseases (principal); D50.8 Other iron deficiency anemias; E87.6 Hypokalemia
CPT/HCPCS: 80053; 96365; 96366; 96367; J1322; J2405; J7040; J7050

== ENCOUNTER 2019-09-03 13:28 | Outpatient (CLI) | payer MEDICARE, MEDICAID, SELFPAY ==
[2019-09-03] MEDS: sodium chloride 0.9% 1,000 ML 999 ML IV (13:40)
== END 2019-09-03 13:29 | disposition home or self-care (01) ==
LOC: ONCMED 13:28
PROVIDERS: Family Provider Nurse Practitioner Family; PCP Nurse Practitioner Family; Visit Provider Internal Medicine Medical Oncology
DX: E00-E89 Endocrine, nutritional and metabolic diseases (principal); D50.8 Other iron deficiency anemias
CPT/HCPCS: 96360; J7030

== ENCOUNTER 2019-09-04 06:00 | Outpatient (RCR) | payer MEDICARE, MEDICAID, SELFPAY | END 2019-10-04 23:59 | disposition home or self-care (01) | LOC: SPT 06:00 | PROVIDERS: Family Provider Nurse Practitioner Family; PCP Nurse Practitioner Family; Referring Provider Orthopaedic Surgery; Visit Provider Orthopaedic Surgery | DX: M54.9 Dorsalgia, unspecified (principal); E76.219 Morquio mucopolysaccharidoses, unspecified | CPT/HCPCS: 97110; 97140; 97530 ==

== ENCOUNTER 2019-09-09 08:56 | Outpatient (CLI) | payer MEDICARE, MEDICAID, SELFPAY ==
[2019-09-09] MEDS: sodium chloride 0.9% 500 ML 100 ML IV (08:45)
[2019-09-09] MEDS: acetaminophen 325 mg Tablet 650 MG PO (08:45)
[2019-09-09 09:15] VITALS: RESP 18; O2SAT 95
[2019-09-09] MEDS: oxyCODONE 5 mg IR Tab/Cap PO (09:15)
[2019-09-09] MEDS: diphenhydrAMINE 25 mg Capsule 50 MG PO (15:15)
[2019-09-09] MEDS: famotidine 20 mg Tablet PO (15:15)
== END 2019-09-09 08:57 | disposition home or self-care (01) ==
LOC: ONCMED 08:57
PROVIDERS: Family Provider Nurse Practitioner Family; PCP Nurse Practitioner Family; Visit Provider Internal Medicine Medical Oncology
DX: E00-E89 Endocrine, nutritional and metabolic diseases (principal); D50.8 Other iron deficiency anemias
CPT/HCPCS: 96365; 96366; 96367; J1322; J2405; J7040; J7050

== ENCOUNTER 2019-09-16 07:47 | Outpatient (CLI) | payer MEDICARE, MEDICAID, SELFPAY ==
[2019-09-16] MEDS: oxyCODONE 5 mg IR Tab/Cap PO (08:31)
[2019-09-16] MEDS: sodium chloride 0.9% 500 ML 100 ML IV (08:31)
[2019-09-16] MEDS: famotidine 20 mg Tablet PO (08:31)
[2019-09-16] MEDS: acetaminophen 325 mg Tablet 650 MG PO (08:31)
[2019-09-16] MEDS: diphenhydrAMINE 25 mg Capsule 50 MG PO (08:31)
[2019-09-16 09:13] LABS: Basophils # 0.1 10^3/uL (0.0-0.1); Basophils % 0.5 %; Eosinophils # 0.2 10^3/uL (0.0-0.8); Eosinophils % 1.6 %; Hemoglobin 13.1 g/dL (11.5-15.3); Lymphocytes # 2.3 10^3/uL (0.8-4.8); Lymphocytes % 24.7 %; Mean Corpuscular HGB Conc 32.8 g/dL (30.0-36.0); Mean Corpuscular Hemoglobin 28.2 pg (28.0-34.0); Mean Corpuscular Volume 86.2 fL (81-99); Mean Platelet Volume 11.5 fL (7.4-10.4); Monocytes # 0.8 10^3/uL (0.2-0.9); Monocytes % 8.8 %; Neutrophils # 5.9 10^3/uL (1.8-7.7); Neutrophils % 64.1 %; Nucleated Red Blood Cells % 0 %; Platelet Count 311 10^3/cmm (130-400); Red Blood Count 4.64 10^6/uL (4.1-5.3); Red Cell Distribution Width 14.8 % (12.1-15.1); White Blood Count 9.2 10^3/uL (4.0-10.0)
[2019-09-16 09:26] LABS: Alanine Aminotransferase 12 U/L (0-33); Albumin Level 4.6 g/dL (3.5-5.2); Alkaline Phosphatase 97 IU/L (35-105); Aspartate Amino Transferase 21 U/L (0-32); Blood Urea Nitrogen 14 mg/dL (6-20); Calcium 10.9 mg/dL (8.5-10.5); Carbon Dioxide 25 mmol/L (22-29); Chloride 95 mmol/L (98-107); Globulin 3.2 g/dL (1.3-4.6); Glomerular Filtration Rate 64.3 mL/min (90-130); Glucose 110 mg/dL (65-115); Osmolality Calculated 275 mOsm/kg (285-295); Sodium 134 mmol/L (136-145); Total Bilirubin 0.2 mg/dL (0.15-1.2); Total Protein 7.8 g/dL (6.6-8.7)
[2019-09-16] MEDS: LORazepam 0.5 mg Tablet PO (12:43)
[2019-09-16] MEDS: ondansetron 4 MG Tablet 8 MG PO (13:20)
== END 2019-09-16 07:48 | disposition home or self-care (01) ==
LOC: ONCMED 07:54
PROVIDERS: Internal Medicine Hematology & Oncology; PCP Nurse Practitioner Family; Visit Provider Internal Medicine Medical Oncology
DX: E00-E89 Endocrine, nutritional and metabolic diseases (principal); D50.9 Iron deficiency anemia, unspecified; E87.6 Hypokalemia
CPT/HCPCS: 80053; 85025; 96365; 96366; 96367; J1322; J2405; J7040; J7050; Q0162

== ENCOUNTER 2019-09-23 08:16 | Outpatient (CLI) | payer MEDICARE, MEDICAID, SELFPAY ==
[2019-09-23] MEDS: sodium chloride 0.9% 500 ML 12 ML IV (08:55)
[2019-09-23] MEDS: acetaminophen 325 mg Tablet 650 MG PO (09:00)
[2019-09-23 09:06] LABS: Alanine Aminotransferase 11 U/L (0-33); Albumin Level 4.4 g/dL (3.5-5.2); Alkaline Phosphatase 91 IU/L (35-105); Anion Gap 20.1 (5-19); Aspartate Amino Transferase 19 U/L (0-32); Blood Urea Nitrogen 15 mg/dL (6-20); Calcium 9.1 mg/dL (8.5-10.5); Carbon Dioxide 20 mmol/L (22-29); Chloride 97 mmol/L (98-107); Globulin 2.1 g/dL (1.3-4.6); Glomerular Filtration Rate 52.1 mL/min (90-130); Glucose 91 mg/dL (65-115); Osmolality Calculated 272 mOsm/kg (285-295); Potassium 4.1 mmol/L (3.5-5.1); Sodium 133 mmol/L (136-145); Total Bilirubin 0.3 mg/dL (0.15-1.2); Total Protein 6.5 g/dL (6.6-8.7)
[2019-09-23 10:30] VITALS: RESP 18; O2SAT 98
[2019-09-23] MEDS: oxyCODONE 5 mg IR Tab/Cap PO (10:30)
[2019-09-23] MEDS: diphenhydrAMINE 25 mg Capsule 50 MG PO (17:14)
[2019-09-23] MEDS: famotidine 20 mg Tablet PO (17:14)
== END 2019-09-23 08:17 | disposition home or self-care (01) ==
LOC: ONCMED 08:19
PROVIDERS: PCP Nurse Practitioner Family; Visit Provider Internal Medicine Medical Oncology
DX: E00-E89 Endocrine, nutritional and metabolic diseases (principal); D50.9 Iron deficiency anemia, unspecified; F41.9 Anxiety disorder, unspecified; F32.9 Major depressive disorder, single episode, unspecified; K21.9 Gastro-esophageal reflux disease without esophagitis; K31.84 Gastroparesis; I10 Essential (primary) hypertension; G43.909 Migraine, unspecified, not intractable, without status migrainosus; J45.909 Unspecified asthma, uncomplicated
CPT/HCPCS: 80053; 96365; 96366; J1322; J2405; J7040; J7050

== ENCOUNTER 2019-09-30 07:46 | Outpatient (CLI) | payer MEDICARE, MEDICAID, SELFPAY ==
[2019-09-30] MEDS: oxyCODONE 5 mg IR Tab/Cap PO (08:35)
[2019-09-30] MEDS: acetaminophen 325 mg Tablet 650 MG PO ×2 (08:35→12:47)
[2019-09-30] MEDS: famotidine 20 mg Tablet PO (08:35)
[2019-09-30] MEDS: diphenhydrAMINE 25 mg Capsule 50 MG PO (08:35)
[2019-09-30] MEDS: sodium chloride 0.9% 500 ML 300 ML IV (08:48)
== END 2019-09-30 07:47 | disposition home or self-care (01) ==
LOC: ONCMED 07:49
PROVIDERS: PCP Nurse Practitioner Family; Visit Provider Internal Medicine Medical Oncology
DX: E00-E89 Endocrine, nutritional and metabolic diseases (principal); D50.8 Other iron deficiency anemias
CPT/HCPCS: 96365; 96366; 96367; J1322; J2405; J7040; J7050

== ENCOUNTER 2019-10-05 06:00 | Outpatient (RCR) | payer MEDICARE, MEDICAID, SELFPAY | END 2019-11-03 23:59 | disposition home or self-care (01) | LOC: SPT 06:00 | PROVIDERS: PCP Nurse Practitioner Family; Visit Provider Orthopaedic Surgery | DX: E76.219 Morquio mucopolysaccharidoses, unspecified (principal); M54.9 Dorsalgia, unspecified | CPT/HCPCS: 97140 ==

== ENCOUNTER 2019-10-07 06:15 | Outpatient (CLI) | payer MEDICARE, MEDICAID, SELFPAY ==
[2019-10-07] MEDS: famotidine 20 mg Tablet PO (08:20)
[2019-10-07] MEDS: diphenhydrAMINE 25 mg Capsule 50 MG PO (08:20)
[2019-10-07] MEDS: acetaminophen 325 mg Tablet 650 MG PO (08:20)
[2019-10-07] MEDS: sodium chloride 0.9% 500 ML 75 ML IV (08:20)
[2019-10-07] MEDS: oxyCODONE 5 mg IR Tab/Cap PO (09:18)
== END 2019-10-07 06:16 | disposition home or self-care (01) ==
LOC: ONCMED 06:16
PROVIDERS: PCP Nurse Practitioner Family; Visit Provider Internal Medicine Medical Oncology
DX: E00-E89 Endocrine, nutritional and metabolic diseases (principal); D50.9 Iron deficiency anemia, unspecified; E87.6 Hypokalemia
CPT/HCPCS: 96365; 96366; 96367; J1322; J2405; J7040; J7050

== ENCOUNTER 2019-10-14 08:02 | Outpatient (CLI) | payer MEDICARE, MEDICAID, SELFPAY ==
[2019-10-14] MEDS: acetaminophen 325 mg Tablet 650 MG PO (08:30)
[2019-10-14] MEDS: diphenhydrAMINE 25 mg Capsule 50 MG PO (08:30)
[2019-10-14] MEDS: sodium chloride 0.9% 250 ML 75 ML IV (08:30)
[2019-10-14] MEDS: famotidine 20 mg Tablet PO (08:30)
--- NOTE | 2019-10-14 10:21 | ONC FU_ITS ---
Danie Souza Patient Note Patient: Elisa Campbell Unit #: [id number]: [id number] Dictated By: Ajit PinoDate of Visit: Oct 14, 2019 Onc MED Follow-Up/Prog Note Chief Complaint: Mucopolysaccharidosis type IV-A. History of Present Illness: Ms Campbell is a 33 year-old woman with mucopolysaccharidosis type IV-A (Morquio type A ). She had been seen by a salvationist and by a genetic counselor at the [facility] during a hospital admission in February 2014. Subsequent studies did confirm a diagnosis of Morquio type A mucoploysaccharidosis. It was suggested at that time that she may want to consider the possibility of initiating a trial of therapy with Vimizin. After receiving further information about the medication, she did opt for treatment, which she started in July 2014. It is administered weekly by IV infusion, and she is receiving treatment here for her convenience, as she felt it would be difficult for her to travel to [place] for it. Subjectively, she had some improvement in her musculoskeletal pain with the treatment, and she had improvement in her performance status. She presented to the emergency room at [facility] on 06/18/2016 with vomiting, abdominal pain, and diarrhea. She was transferred to [facility] in [place] and admitted to the hospital. Her GI evaluation apparently was unrevealing. She was discharged home on 06/24/2016 on Zofran ODT 8 mg and pantoprazole 40 mg daily. She has had follow-up with the professor of early childhood education, and he apparently felt that the problem was related to the underlying gastroparesis. During her further follow-up she has on occasion required treatment for hypokalemia. She continued her weekly infusions of elosulfase genoveva. Her medical illnesses, in addition to Morquio type A mucopolysaccharidosis , include hypertension, mild asthma, GERD, gastroparesis, and chronic migraine. She has degenerative arthritis, and she also has anxiety/depression. She underwent left total hip arthroplasty in December 2015 and right total hip arthroplasty in March 2016. She is a nonsmoker. INTERIM HISTORY: In April 2019 she began to complain of abdominal pain. Her CT abdomen/pelvis on 04/20/2019 showed no acute findings. On 04/24/2019 she presented to the emergency room with persistent right upper quadrant pain. Gallbladder ultrasound was normal. Her liver enzymes, though, were markedly elevated with SGOT 3530 U/L and SGPT 3306 U/L. Her total bilirubin was normal at 0.4 mg/dL and the alkaline phosphatase was just slightly elevated at 138/105 IU/L. Her viral hepatitis serology was negative. She was transferred to the [facility] for admission, and she improved with conservative management. A specific cause for the illness was never determined. During the course of that hospitalization, though, she apparently was found to have evidence of pulmonary embolism, and she did start anticoagulation with apixaban. Following discharge she was able to restart her weekly elosulfase genoveva infusions. Ms. Barros is here today for 3-month follow-up. She states overall she is doing about the same. She reports that she was in [place] on Saturday for her salvationist appointment there and did have an MRI of her spine due to increased back pain. She has not heard results yet. She states she did have her labs drawn there and they told her they were good. She states that increasing the venlafaxine has helped her depression and she feels good overall. Her appetite comes and goes but states is good for the most part. She denies any new pain. She states she has had an flareup of the gastroparesis that is settled down. She states she has intermittent diarrhea but that too is improved. She has no concerns today. She states that her blood pressure yesterday was 102/60 at the kidney doctors office. She states the kidney doctor looked at her labs and sent her with the electrolyte good he did not need to see her for a year. She reports that she is seen ENT in [place] next month to have her ears checked. She denies any shortness of breath or cough. She denies any fever or chills. Her ECOG is 1. Past Medical History: Anxiety and depression Gastroesophageal reflux disease Gastroparesis Hypertension Migraines Mild asthma Morquio type A Past Surgical History: Introduction of influenza vaccine into muscle, perc approach in 2019 Flu Vaccine in 2018 Flu Vaccine in 2017 - per pt. Right subclavian venous access device-Dr Beverley More ([facility]) in 2014 EGD in 2013 Spinal fusion in 2002 Spinal fusion in 2000 Leg surgery in 1998 Allergies: ADHESIVE, AZITHROMYCIN, COMPAZINE, GABAPENTIN, METOCLOPRAMIDE, and TraMADol HCl. Medications: Albuterol Sulfate HFA Aerosol, solution Inhalation PRN Ativan (1 mg) Tablet Oral b.i.d. PRN Benadryl 1 Capsule (of 25 mg) Oral q 6 hours PRN Botox Injection Take as Directed Coreg 1 Tablet (of 25 mg) Oral daily Depo-Provera 150 mg (of 400 mg/mL) Intramuscular q 90 days Effexor XR 1 Capsule (of 150 mg) Capsule SR 24 HR Oral daily Eliquis 1 Tablet (of 2.5 mg) Oral daily Erythromycin Base 1 Capsule (of 250 mg) Capsule Delayed Release Particles Oral four times a day hydroCHLOROthiazide 1 Tablet (of 25 mg) Oral daily Lasix 1 (5 mg) Tablet Oral daily PRN Lisinopril 2.5 Tablet (of 2.5 mg) Oral daily PRN Marinol 1 (2.5 mg) Capsule Oral b.i.d. PRN Mobic 1 Tablet (of 7.5 mg) Oral b.i.d. Ondansetron HCl 1 (4 mg) Tablet Oral q 8 hours PRN Pepcid 1 Tablet (of 40 mg) Oral daily Potassium Chloride Laura ER 1 (40 meq) Tablet, controlled release Oral daily TiZANidine HCl 1 (4 mg) Tablet Oral t.i.d. PRN Family History: Ms. Campbell's mother is alive. Ms. Campbell's father is alive. Both parents are living, father at age 59 and mother at age 57. Her mother has cardiomyopathy. There is diabetes on her father's side of the family. Her maternal great grandmother with breast cancer. One brother is in good health. Social History: Ms. Campbell is single and she is a disabled. Ms. Campbell has never smoked. She has no history of drinking. Ms. Campbell reports the following support systems: lives with spouse, significant other, family, or friends, lives in own house, supportive family/friends willing to assist with needs, and adequate transportation available for expected visits. Her diet consists of regular meals. She indicates her activity level as: daily activities. Review Of Symptoms: Constitutional Denies fevers, chills, night sweats, or weight loss. Mild fatigue. Lost 2 pounds but also has taken Lasix 2-3 times this last week. Appetite comes and goes, it is good for the most part. Allergic/Immunologic No reactions. Eyes Denies significant visual changes. ENMT Denies changes in hearing, sore throat, mouth sores, difficulty or changes in swallowing ability. Hematologic/Lymphatic Denies easy bruising or bleeding. The patient denies any tender or palpable lymph nodes. Respiratory Denies dyspnea on exertion, chest pain, cough or hemoptysis. New onset cough with URI symptoms. Cardiovascular Denies anginal chest pain. Gastrointestinal Denies diarrhea or constipation. Denies change in bowel habits and/or stool color, no heartburn. Genitourinary (F) No hematuria, hesitancy, incontinence, vaginal bleeding, discharge or other problems with urination. Musculoskeletal chronic joint pain. Increased back pain-had MRI of the spine in [place] on Saturday. Integumentary Denies chronic rashes, ulcerations or skin changes. Neurologic Denies blurred vision, and no areas of focal weakness or numbness. Psychiatric Denies depression. Chronic Anxiety and insomnia-currently controlled. Vital Signs: Performed on Oct 14, 2019 08:06 Height - 47.00 in Weight - 104.4 lbs (LOW) BSA - 1.19 sq.m BMI - 33.23 (HIGH) Temperature - 98.4 F Pulse - 91 /min Respiration - 19 /min BP - 141/73 mm(hg) (HIGH) O2 Sat - 100 % Pain - 5,1 - No physically strenuous activity, but ambulatory and able to carry out light or sedentary work (e.g. office work, light house work). (ECOG) Physical Examination: Constitutional Alert, oriented, no acute distress. Skin pink, warm and dry. Head Normocephalic; atraumatic. Eyes Conjunctivae and sclerae are clear and without icterus. Pupils are reactive and equal. Neck Supple without masses or thyromegaly. No jugular venous distension. Hematologic/Lymphatic No petechiae or purpura. Respiratory Lungs are clear to auscultation without rhonchi or wheezing. Cardiovascular Regular rate and rhythm of heart without murmurs,clicks, gallops or rubs. Chest Right subclavian venous access device unremarkable. Extremities Short stature with slight contractures noted in feet and hands, no cyanosis, clubbing or edema. bilaterally. Musculoskeletal No tenderness or swelling, normal range of motion without obvious weakness. Integumentary No rashes or lesions. Neurologic No sensory or motor deficits, normal cerebellar function, normal gait-for patient. It is altered slightly due to small stature and slight contractures. Psychiatric Alert and oriented times three. Coherent speech. Verbalizes understanding of our discussions today. Laboratory:Test performed on September 23, 2019 08:25 Sodium 133 mmol/L Potassium 4.1 mmol/L Chloride 97 mmol/L CO2 20 mmol/L Anion Gap 20.1 BUN 15 mg/dL Creatinine 1.2 mg/dL Cr Clearance (Est) 52.6300 mL/min eGFR 52.1 mL/min Glucose 91 mg/dL Calcium 9.1 mg/dL Protein, Total 6.5 g/dL Albumin 4.4 g/dL Globulin 2.1 g/dL Bilirubin, Total 0.3 mg/dL ALT (SGPT) 11 U/L AST (SGOT) 19 U/L Alkaline Phosphatase 91 IU/L Test performed on September 16, 2019 08:40 WBC 9.2 10 3/uL RBC 4.64 10 6/uL HGB 13.1 g/dL HCT 40.0 % MCV 86.2 fL MCH 28.2 pg MCHC 32.8 g/dL RDW 14.8 % Platelet Count 311 10 3/cmm MPV 11.5 fL Neutrophils 5.9 10 3/uL Lymphocytes 2.3 10 3/uL Monocytes 0.8 10 3/uL Eosinophils 0.2 10 3/uL Basophils 0.1 10 3/uL Neutrophil % 64.1 % Lymphocyte % 24.7 % Monocyte % 8.8 % Eosinophil % 1.6 % Basophils % 0.5 % Test performed on Aug 26, 2019 08:30 Ferritin 52 ng/mL Magnesium 1.8 mg/dL Test performed on Aug 12, 2019 09:25 Iron 41 mcg/dL Iron Binding Capacity (TIBC) 273 mcg/dl % Iron Saturation 15.0 % UIBC 232 mcg/dL Impression: 1. The patient has Morquio type A (mucopolysaccharidosis IV-A). She has been undergoing treatment with elosulfase genoveva. It is administered weekly by IV infusion. Thus far she has tolerated the treatment well. She had noted improvement in her muscle pain and in her energy/activity tolerance. Overall she had noticed a big difference with the treatment. 2. She has chronic musculoskeletal pain. Her other medical illnesses include: 3. Hypertension. 4. Mild asthma. 5. GERD. 6. Gastroparesis. 7. Degenerative arthritis. 8. Chronic migraine. 9. Chronic anxiety/depression. In June 2016 she was admitted to the hospital with increased nausea/vomiting. She underwent evaluation with a professor of early childhood education in [place], and he felt that the problems were related to the underlying gastroparesis. Her symptoms improved with addition of pantoprazole 40 mg daily and ondansetron 8 mg as needed. She had gradual recovery following her total hip arthroplasty procedures in December and in March 2016, and she continued weekly infusions of elosulfase genoveva. In April 2019 she had presented with right upper quadrant abdominal pain and markedly elevated liver enzymes. Her CT abdomen/pelvis and gallbladder ultrasound were unrevealing. She was admitted to the hospital at the [facility]. She recovered with conservative management. To my knowledge a specific cause for that illness was not determined, but during the hospitalization she was found to have pulmonary embolism, for which she has been on anticoagulation with apixaban. Recently she has been more fatigued. She has gained weight despite having decreased appetite and oral intake, and she thinks she may be retaining fluid. She has become mildly anemic with transferrin saturation low at 13%, consistent with iron deficiency. Her liver enzymes are normal. At her followup in September 2019, she was found to be iron deficient. She has not been re-evaluated for that as of yet. We will plan to recheck her iron studies with her next lab draw in November. Plan: 1. Proceed with elosulfase genoveva 2 mg/kg by IV infusion weekly. 2. Continue furosemide 20 mg daily, as needed. She states she generally takes it once or twice a week so she doesn't get too dry. 3. Continue venlafaxine @ 150 mg daily as this is working well for her. 4. Labs drawn in [place] at genetic clinic on 10/12/2019-not availble for our review, but she states they told her her labs were good. 5. MRI of the spine in [place]-pending results. Elisa is waiting for a call with the results. 5. Contrinue monthly labs as she has hypokalemia and iron deficiency/ 6. She will be seen for a follow-up visit in 3 months with her monthly labs. 7. Ms Campbell was instructed to call us in the interim if questions or problems arise. We can see her sooner as needed. Signed By: Ajit Pino-, [facility] Leon Ramirez MD <<Signature on File>>
[2019-10-14 12:45] VITALS: RESP 16
[2019-10-14] MEDS: oxyCODONE 5 mg IR Tab/Cap PO (12:45)
== END 2019-10-14 08:03 | disposition home or self-care (01) ==
LOC: ONCMED 08:05
PROVIDERS: PCP Nurse Practitioner Family; Visit Provider Nurse Practitioner
DX: E00-E89 Endocrine, nutritional and metabolic diseases (principal); R63.5 Abnormal weight gain; E87.6 Hypokalemia; D50.9 Iron deficiency anemia, unspecified; I10 Essential (primary) hypertension; J45.909 Unspecified asthma, uncomplicated; K21.9 Gastro-esophageal reflux disease without esophagitis; K31.84 Gastroparesis; M19.90 Unspecified osteoarthritis, unspecified site; G43.709 Chronic migraine without aura, not intractable, without status migrainosus; F41.8 Other specified anxiety disorders; Z68.33 Body mass index [BMI] 33.0-33.9, adult
CPT/HCPCS: 96365; 96366; 96367; G0463; J1322; J2405; J7050

== ENCOUNTER 2019-10-21 07:56 | Outpatient (CLI) | payer MEDICARE, MEDICAID, SELFPAY ==
[2019-10-21] MEDS: acetaminophen 325 mg Tablet 650 MG PO (08:34)
[2019-10-21] MEDS: famotidine 20 mg Tablet PO (08:34)
[2019-10-21] MEDS: oxyCODONE 5 mg IR Tab/Cap PO (08:34)
[2019-10-21] MEDS: sodium chloride 0.9% 500 ML 100 ML IV (08:34)
[2019-10-21] MEDS: diphenhydrAMINE 25 mg Capsule 50 MG PO (08:34)
== END 2019-10-21 07:57 | disposition home or self-care (01) ==
LOC: ONCMED 08:02
PROVIDERS: PCP Nurse Practitioner Family; Visit Provider Nurse Practitioner
DX: E00-E89 Endocrine, nutritional and metabolic diseases (principal); D50.9 Iron deficiency anemia, unspecified; F41.9 Anxiety disorder, unspecified; F32.9 Major depressive disorder, single episode, unspecified; K21.9 Gastro-esophageal reflux disease without esophagitis; I10 Essential (primary) hypertension; G43.909 Migraine, unspecified, not intractable, without status migrainosus; J45.909 Unspecified asthma, uncomplicated; K31.84 Gastroparesis
CPT/HCPCS: 96365; 96366; 96367; J1322; J2405; J7040; J7050

== ENCOUNTER 2019-10-28 07:44 | Outpatient (CLI) | payer MEDICARE, MEDICAID, SELFPAY ==
[2019-10-28] MEDS: diphenhydrAMINE 25 mg Capsule 50 MG PO (08:37)
[2019-10-28] MEDS: sodium chloride 0.9% 500 ML 75 ML IV (08:37)
[2019-10-28] MEDS: famotidine 20 mg Tablet PO (08:37)
[2019-10-28] MEDS: acetaminophen 325 mg Tablet 650 MG PO (08:37)
[2019-10-28] MEDS: oxyCODONE 5 mg IR Tab/Cap PO ×2 (08:37→13:11)
== END 2019-10-28 07:45 | disposition home or self-care (01) ==
LOC: ONCMED 07:47
PROVIDERS: PCP Nurse Practitioner Family; Visit Provider Nurse Practitioner
DX: E00-E89 Endocrine, nutritional and metabolic diseases (principal); D50.8 Other iron deficiency anemias
CPT/HCPCS: 96365; 96366; 96367; J1322; J2405; J7040; J7050

== ENCOUNTER 2019-11-04 06:00 | Outpatient (RCR) | payer MEDICARE, MEDICAID, SELFPAY | END 2019-12-04 23:59 | disposition home or self-care (01) | LOC: SPT 06:00 | PROVIDERS: PCP Nurse Practitioner Family; Visit Provider Orthopaedic Surgery | DX: M54.9 Dorsalgia, unspecified (principal); E76.219 Morquio mucopolysaccharidoses, unspecified | CPT/HCPCS: 97140 ==

== ENCOUNTER 2019-11-04 07:52 | Outpatient (CLI) | payer MEDICARE, MEDICAID, SELFPAY ==
[2019-11-04] MEDS: oxyCODONE 5 mg IR Tab/Cap PO ×2 (08:56→13:20)
[2019-11-04] MEDS: diphenhydrAMINE 25 mg Capsule 50 MG PO (08:56)
[2019-11-04] MEDS: acetaminophen 325 mg Tablet 650 MG PO (08:56)
[2019-11-04] MEDS: sodium chloride 0.9% 500 ML 75 ML IV (09:01)
== END 2019-11-04 07:53 | disposition home or self-care (01) ==
LOC: ONCMED 07:54
PROVIDERS: PCP Nurse Practitioner Family; Visit Provider Nurse Practitioner
DX: E00-E89 Endocrine, nutritional and metabolic diseases (principal); D50.8 Other iron deficiency anemias
CPT/HCPCS: 96365; 96366; 96367; J1322; J2405; J3490; J7040; J7050

== ENCOUNTER 2019-11-11 08:07 | Outpatient (CLI) | payer MEDICARE, MEDICAID, SELFPAY ==
[2019-11-11] MEDS: diphenhydrAMINE 25 mg Capsule 50 MG PO (08:20)
[2019-11-11] MEDS: acetaminophen 325 mg Tablet 650 MG PO (08:20)
[2019-11-11] MEDS: LORazepam 0.5 mg Tablet PO (08:33)
[2019-11-11] MEDS: sodium chloride 0.9% 250 ML 999 ML IV (08:36)
[2019-11-11 09:04] LABS: Ferritin 97 ng/mL (15-150); Iron 78 ug/dL (37-145); Percent Saturation 28.1 % (20-50); Total Iron Binding Capacity 277 mcg/dl; Unsaturated Iron Binding 199 ug/dL (112-347)
[2019-11-11 09:15] VITALS: RESP 16; O2SAT 99
[2019-11-11] MEDS: oxyCODONE 5 mg IR Tab/Cap PO (09:15)
[2019-11-11] MEDS: potassium chloride 40 MEQ in sodium chloride 0.9% 500 ML 125 MEQ IV (10:44)
[2019-11-11] MEDS: lisinopril 2.5 mg Tablet PO (11:58)
== END 2019-11-11 08:08 | disposition home or self-care (01) ==
LOC: ONCMED 08:10
PROVIDERS: PCP Nurse Practitioner Family; Visit Provider Nurse Practitioner
DX: E00-E89 Endocrine, nutritional and metabolic diseases (principal); D50.9 Iron deficiency anemia, unspecified; F41.9 Anxiety disorder, unspecified; F32.9 Major depressive disorder, single episode, unspecified; K21.9 Gastro-esophageal reflux disease without esophagitis; K31.84 Gastroparesis; G43.909 Migraine, unspecified, not intractable, without status migrainosus; J45.20 Mild intermittent asthma, uncomplicated
CPT/HCPCS: 82728; 83540; 83550; 84132; 96365; 96366; 96367; J1322; J2405; J3480; J3490; J7040; J7050

== ENCOUNTER 2019-11-18 07:56 | Outpatient (CLI) | payer MEDICARE, MEDICAID, SELFPAY ==
[2019-11-18] MEDS: oxyCODONE 5 mg IR Tab/Cap PO ×2 (08:32→13:05)
[2019-11-18] MEDS: diphenhydrAMINE 25 mg Capsule 50 MG PO (08:32)
[2019-11-18] MEDS: acetaminophen 325 mg Tablet 650 MG PO (08:32)
[2019-11-18] MEDS: sodium chloride 0.9% 500 ML 75 ML IV (08:48)
[2019-11-18 09:15] LABS: Potassium 3.1 mmol/L (3.5-5.1)
[2019-11-18] MEDS: potassium chloride 40 MEQ in sodium chloride 0.9% 500 ML 999 MEQ IV (10:29)
== END 2019-11-18 07:57 | disposition home or self-care (01) ==
LOC: ONCMED 07:59
PROVIDERS: PCP Nurse Practitioner Family; Visit Provider Nurse Practitioner
DX: E00-E89 Endocrine, nutritional and metabolic diseases (principal); D50.9 Iron deficiency anemia, unspecified; F41.9 Anxiety disorder, unspecified; F32.9 Major depressive disorder, single episode, unspecified; K21.9 Gastro-esophageal reflux disease without esophagitis; K31.84 Gastroparesis; I10 Essential (primary) hypertension; G43.909 Migraine, unspecified, not intractable, without status migrainosus; J45.20 Mild intermittent asthma, uncomplicated
CPT/HCPCS: 83735; 84132; 96365; 96366; 96367; J1322; J2405; J3480; J3490; J7040; J7050

== ENCOUNTER 2019-11-25 07:51 | Outpatient (CLI) | payer MEDICARE, MEDICAID, SELFPAY ==
[2019-11-25] MEDS: oxyCODONE 5 mg IR Tab/Cap PO ×2 (08:54→13:45)
[2019-11-25] MEDS: sodium chloride 0.9% 500 ML 75 ML IV (08:54)
[2019-11-25] MEDS: acetaminophen 325 mg Tablet 650 MG PO (08:54)
[2019-11-25] MEDS: diphenhydrAMINE 25 mg Capsule 50 MG PO (08:54)
[2019-11-25 09:09] LABS: Potassium 3.4 mmol/L (3.5-5.1)
== END 2019-11-25 07:52 | disposition home or self-care (01) ==
LOC: ONCMED 07:55
PROVIDERS: PCP Nurse Practitioner Family; Visit Provider Nurse Practitioner
DX: E00-E89 Endocrine, nutritional and metabolic diseases (principal); D50.8 Other iron deficiency anemias; E87.6 Hypokalemia
CPT/HCPCS: 84132; 96365; 96366; 96367; J1322; J2405; J3490; J7040; J7050

== ENCOUNTER 2019-12-02 08:04 | Outpatient (CLI) | payer MEDICARE, MEDICAID, SELFPAY ==
[2019-12-02] MEDS: sodium chloride 0.9% 500 ML 75 ML IV (08:41)
[2019-12-02] MEDS: acetaminophen 325 mg Tablet 650 MG PO (08:44)
[2019-12-02] MEDS: famotidine 20 mg Tablet PO (08:44)
[2019-12-02] MEDS: diphenhydrAMINE 25 mg Capsule 50 MG PO (08:44)
[2019-12-02] MEDS: oxyCODONE 5 mg IR Tab/Cap PO (09:00)
== END 2019-12-02 08:05 | disposition home or self-care (01) ==
LOC: ONCMED 08:07
PROVIDERS: PCP Nurse Practitioner Family; Visit Provider Nurse Practitioner
DX: E00-E89 Endocrine, nutritional and metabolic diseases (principal); D50.8 Other iron deficiency anemias
CPT/HCPCS: 96365; 96366; 96367; J1322; J2405; J7040; J7050

== ENCOUNTER 2019-12-05 06:00 | Outpatient (RCR) | payer MEDICARE, MEDICAID, SELFPAY | END 2020-01-04 23:59 | disposition home or self-care (01) | LOC: SPT 06:00 | PROVIDERS: PCP Nurse Practitioner Family; Visit Provider Orthopaedic Surgery | DX: M54.9 Dorsalgia, unspecified (principal); E76.219 Morquio mucopolysaccharidoses, unspecified | CPT/HCPCS: 97140 ==

== ENCOUNTER 2019-12-09 06:06 | Outpatient (CLI) | payer MEDICARE, MEDICAID, SELFPAY ==
[2019-12-09] MEDS: diphenhydrAMINE 25 mg Capsule 50 MG PO (08:36)
[2019-12-09] MEDS: acetaminophen 325 mg Tablet 650 MG PO (08:36)
[2019-12-09] MEDS: famotidine 20 mg Tablet PO (08:36)
[2019-12-09] MEDS: oxyCODONE 5 mg IR Tab/Cap PO (08:36)
[2019-12-09] MEDS: sodium chloride 0.9% 500 ML 75 ML IV (09:00)
== END 2019-12-09 06:07 | disposition home or self-care (01) ==
PROVIDERS: PCP Nurse Practitioner Family; Visit Provider Nurse Practitioner
DX: E00-E89 Endocrine, nutritional and metabolic diseases (principal); D50.8 Other iron deficiency anemias
CPT/HCPCS: 96365; 96366; 96367; J1322; J2405; J7040; J7050

== ENCOUNTER 2019-12-16 06:31 | Outpatient (CLI) | payer MEDICARE, MEDICAID, SELFPAY ==
[2019-12-16] MEDS: oxyCODONE 5 mg IR Tab/Cap PO (09:16)
[2019-12-16] MEDS: sodium chloride 0.9% 500 ML 75 ML IV (09:16)
[2019-12-16] MEDS: acetaminophen 325 mg Tablet 650 MG PO (09:16)
[2019-12-16] MEDS: famotidine 20 mg Tablet PO (09:16)
[2019-12-16] MEDS: diphenhydrAMINE 25 mg Capsule 50 MG PO (09:16)
== END 2019-12-16 06:32 | disposition home or self-care (01) ==
LOC: ONCMED 06:33
PROVIDERS: PCP Nurse Practitioner Family; Visit Provider Nurse Practitioner
DX: E00-E89 Endocrine, nutritional and metabolic diseases (principal); D50.9 Iron deficiency anemia, unspecified; F41.9 Anxiety disorder, unspecified; F32.9 Major depressive disorder, single episode, unspecified; K21.9 Gastro-esophageal reflux disease without esophagitis; K31.84 Gastroparesis; I10 Essential (primary) hypertension; G43.909 Migraine, unspecified, not intractable, without status migrainosus; J45.909 Unspecified asthma, uncomplicated
CPT/HCPCS: 96365; 96366; 96367; J1322; J2405; J7040; J7050

== ENCOUNTER 2019-12-23 06:18 | Outpatient (CLI) | payer MEDICARE, MEDICAID, SELFPAY ==
[2019-12-23] MEDS: sodium chloride 0.9% 500 ML 75 ML IV (08:40)
[2019-12-23] MEDS: acetaminophen 325 mg Tablet 650 MG PO (08:40)
[2019-12-23] MEDS: diphenhydrAMINE 25 mg Capsule 50 MG PO (08:40)
[2019-12-23] MEDS: famotidine 20 mg Tablet PO (08:40)
[2019-12-23] MEDS: oxyCODONE 5 mg IR Tab/Cap PO ×2 (08:40→13:00)
[2019-12-23 09:02] LABS: Potassium 3.4 mmol/L (3.5-5.1)
[2019-12-23] MEDS: LORazepam 0.5 mg Tablet PO (10:20)
== END 2019-12-23 06:19 | disposition home or self-care (01) ==
PROVIDERS: PCP Nurse Practitioner Family; Visit Provider Nurse Practitioner
DX: E00-E89 Endocrine, nutritional and metabolic diseases (principal); D50.9 Iron deficiency anemia, unspecified; F41.9 Anxiety disorder, unspecified; F32.9 Major depressive disorder, single episode, unspecified; K21.9 Gastro-esophageal reflux disease without esophagitis; K31.84 Gastroparesis; I10 Essential (primary) hypertension; G43.909 Migraine, unspecified, not intractable, without status migrainosus; J45.909 Unspecified asthma, uncomplicated
CPT/HCPCS: 84132; 96365; 96366; 96367; J1322; J2405; J7040; J7050

== ENCOUNTER 2019-12-30 06:20 | Outpatient (CLI) | payer MEDICARE, MEDICAID, SELFPAY ==
[2019-12-30] MEDS: diphenhydrAMINE 25 mg Capsule 50 MG PO (08:48)
[2019-12-30] MEDS: oxyCODONE 5 mg IR Tab/Cap PO (08:48)
[2019-12-30] MEDS: sodium chloride 0.9% 500 ML 75 ML IV (08:48)
[2019-12-30] MEDS: famotidine 20 mg Tablet PO (08:48)
[2019-12-30] MEDS: acetaminophen 325 mg Tablet 650 MG PO (08:48)
== END 2019-12-30 06:21 | disposition home or self-care (01) ==
LOC: ONCMED 06:22
PROVIDERS: PCP Nurse Practitioner Family; Visit Provider Nurse Practitioner
DX: E00-E89 Endocrine, nutritional and metabolic diseases (principal); D50.8 Other iron deficiency anemias
CPT/HCPCS: 96365; 96366; 96367; J1322; J2405; J7040; J7050

== ENCOUNTER 2020-01-05 06:00 | Outpatient (RCR) | payer MEDICARE, MEDICAID, SELFPAY | END 2020-02-03 23:59 | disposition home or self-care (01) | LOC: SPT 06:00 | PROVIDERS: PCP Nurse Practitioner Family; Visit Provider Orthopaedic Surgery | DX: M54.9 Dorsalgia, unspecified (principal); E76.219 Morquio mucopolysaccharidoses, unspecified | CPT/HCPCS: 97140 ==

== ENCOUNTER 2020-01-06 06:00 | Outpatient (CLI) | payer MEDICARE, MEDICAID, SELFPAY ==
[2020-01-06 08:42] LABS: Basophils % 0.5 %; Eosinophils # 0.3 10^3/uL (0.0-0.8); Eosinophils % 4.1 %; Hematocrit 39.1 % (37.0-47.0); Hemoglobin 12.5 g/dL (11.5-15.3); Lymphocytes # 2.8 10^3/uL (0.8-4.8); Lymphocytes % 34.3 %; Mean Corpuscular Hemoglobin 29.3 pg (28.0-34.0); Mean Corpuscular Volume 91.6 fL (81-99); Monocytes # 0.7 10^3/uL (0.2-0.9); Monocytes % 8.5 %; Neutrophils # 4.23 10^3/uL (1.8-7.7); Neutrophils % 52.4 %; Nucleated Red Blood Cells % 0 %; Platelet Count 268 10^3/cmm (130-400); Red Blood Count 4.27 10^6/uL (4.1-5.3); Red Cell Distribution Width 14.6 % (12.1-15.1); White Blood Count 8.1 10^3/uL (4.0-10.0)
[2020-01-06] MEDS: famotidine 20 mg Tablet PO (08:49)
[2020-01-06] MEDS: acetaminophen 325 mg Tablet 650 MG PO (08:49)
[2020-01-06] MEDS: oxyCODONE 5 mg IR Tab/Cap PO ×2 (08:49→13:50)
[2020-01-06] MEDS: diphenhydrAMINE 25 mg Capsule 50 MG PO (08:49)
[2020-01-06 09:06] LABS: Alanine Aminotransferase 17 U/L (0-33); Albumin Level 4.3 g/dL (3.5-5.2); Alkaline Phosphatase 87 IU/L (35-105); Anion Gap 15.3 (5-19); Aspartate Amino Transferase 20 U/L (0-32); Blood Urea Nitrogen 13 mg/dL (6-20); Calcium 9.7 mg/dL (8.5-10.5); Carbon Dioxide 23 mmol/L (22-29); Chloride 108 mmol/L (98-107); Globulin 2.7 g/dL (1.3-4.6); Glomerular Filtration Rate 96.4 mL/min (90-130); Glucose 91 mg/dL (65-115); Osmolality Calculated 290 mOsm/kg (285-295); Potassium 4.3 mmol/L (3.5-5.1); Sodium 142 mmol/L (136-145); Total Bilirubin 0.2 mg/dL (0.15-1.2)
--- NOTE | 2020-01-06 10:14 | ONC FU_ITS ---
Dr. Ramirez Patient Follow-Up Note Patient: Elisa Campbell Unit #: [id number]: [id number] Dicatated By: Leon Ramirez M.D.Date of Visit:Jan 06, 2020 Onc Med Follow-up/Prog Note Chief Complaint: Mucopolysaccharidosis type IV-A. History of Present Illness: This is a 34 year-old woman with mucopolysaccharidosis type IV-A (Morquio type A ). She had been seen by a portal architect and by a genetic counselor at the [facility] during a hospital admission in February 2014. Subsequent studies did confirm a diagnosis of Morquio type A mucoploysaccharidosis. It was suggested at that time that she may want to consider the possibility of initiating a trial of therapy with Vimizin. After receiving further information about the medication, she did opt for treatment, which she started in July 2014. It is administered weekly by IV infusion, and she is receiving treatment here for her convenience, as she felt it would be difficult for her to travel to [place] for it. Subjectively, she had some improvement in her musculoskeletal pain with the treatment, and she had improvement in her performance status. She presented to the emergency room at [facility] on 06/18/2016 with vomiting, abdominal pain, and diarrhea. She was transferred to [facility] in [place] and admitted to the hospital. Her GI evaluation apparently was unrevealing. She was discharged home on 06/24/2016 on Zofran ODT 8 mg and pantoprazole 40 mg daily. She has had follow-up with the housekeeping attendant, and he apparently felt that the problem was related to the underlying gastroparesis. During her further follow-up she has on occasion required treatment for hypokalemia. She continued her weekly infusions of elosulfase genoveva. Her medical illnesses, in addition to Morquio type A mucopolysaccharidosis , include hypertension, mild asthma, GERD, gastroparesis, and chronic migraine. She has degenerative arthritis, and she also has anxiety/depression. She underwent left total hip arthroplasty in December 2015 and right total hip arthroplasty in March 2016. She is a nonsmoker. INTERIM HISTORY: In April 2019 she began to complain of abdominal pain. Her CT abdomen/pelvis on 04/20/2019 showed no acute findings. On 04/24/2019 she presented to the emergency room with persistent right upper quadrant pain. Gallbladder ultrasound was normal. Her liver enzymes, though, were markedly elevated with SGOT 3530 U/L and SGPT 3306 U/L. Her total bilirubin was normal at 0.4 mg/dL and the alkaline phosphatase was just slightly elevated at 138/105 IU/L. Her viral hepatitis serology was negative. She was transferred to the [facility] for admission, and she improved with conservative management. I do not think a specific cause for the illness was ever determined. During the course of that hospitalization, though, she apparently was found to have evidence of pulmonary embolism, and she did start anticoagulation with apixaban. Following discharge she was able to restart her weekly elosulfase genoveva infusions. She is seen for a scheduled visit. She has been feeling good generally. Her energy is somewhat variable, but she is doing light work. ECOG score is 1. Her appetite comes and goes. Her weight is stable. She does not have fever or night sweats. She does have some hot flashes. She has musculoskeletal pain, mainly in the back, that has been a little worse lately due to the rainy weather. She also has been having headaches. She is scheduled to get back on her Botox treatment tomorrow. She has some sinus congestion, which she manages with Mucinex. Her breathing lately has been okay. She is not having cough, and she does not complain of chest pain. Her stomach has been pretty good lately. She has had some nausea, but no vomiting. Her acid reflux is adequately managed with famotidine. Bowel and bladder function have been okay. She occasionally has numbness in her fingers. She has no other focal neurologic symptoms. Medications: Albuterol Sulfate HFA Aerosol, solution Inhalation PRN, Ativan (1 mg) Tablet Oral b.i.d. PRN, Benadryl 1 Capsule (of 25 mg) Oral q 6 hours PRN, Botox Injection Take as Directed, Coreg 1 Tablet (of 25 mg) Oral daily, Depo-Provera 150 mg (of 400 mg/mL) Intramuscular q 90 days, Effexor XR 1 Capsule (of 150 mg) Capsule SR 24 HR Oral daily, Eliquis 1 Tablet (of 2.5 mg) Oral daily, Erythromycin Base 1 Capsule (of 250 mg) Capsule Delayed Release Particles Oral four times a day, hydroCHLOROthiazide 1 Tablet (of 25 mg) Oral daily, Lasix 1 (5 mg) Tablet Oral daily PRN, Lisinopril 2.5 Tablet (of 2.5 mg) Oral daily PRN, Marinol 1 (2.5 mg) Capsule Oral b.i.d. PRN, Mobic 1 Tablet (of 7.5 mg) Oral b.i.d., Ondansetron HCl 1 (4 mg) Tablet Oral q 8 hours PRN, Pepcid 1 Tablet (of 40 mg) Oral daily, Potassium Chloride Laura ER 1 (40 meq) Tablet, controlled release Oral daily, TiZANidine HCl 1 (4 mg) Tablet Oral t.i.d. PRN Allergies: ADHESIVE, AZITHROMYCIN, COMPAZINE, GABAPENTIN, METOCLOPRAMIDE, and TraMADol HCl. Review of Systems: Constitutional - She is feeling good. Her appetite is good and her weight is up a few pounds from last visit. No fevers, night sweats. She has daily hot flashes. ECOG score is 1, ENMT - She has sinus congestion/drainage, she is taking Mucinex. No mouth sores. No sore throat or difficulty swallowing, Hematologic/Lymphatic - She bruises easily, Respiratory - No shortness of breath. No cough. No pleuritic pain or hemoptysis, Cardiovascular - No angina pain. No palpitations, Gastrointestinal - She has had some nausea but no vomiting. Her heartburn is adequately managed with famoitide. No diarrhea or constipation. No blood in the stool or black stools, Genitourinary (F) - No dysuria or hematuria. No urinary frequency. No urgency or incontinence, Musculoskeletal - She has had a increase in pain in her back associated with the rainy weather, Integumentary - No skin complications, Neurologic - She has chronic headaches, she is going for Botox tomorrow. No dizziness. She has some numbness in her fingers. No other focal neurologic symptoms, Psychiatric - No anxiety or depression. She does not sleep well. Vital Signs: Performed on Jan 06, 2020 09:35 Height - 47.00 in Weight - 102.2 lbs (HIGH) BSA - 1.18 sq.m BMI - 32.53 (HIGH) Temperature - 97.3 F (LOW) Pulse - 105 /min (HIGH) Respiration - 17 /min BP - 140/98 mm(hg) O2 Sat - 98 % Pain - 6 Physical Examination: Constitutional - She looks pretty good generally, Eyes - Sclerae nonicteric. Conjunctivae clear, ENMT - No lesions noted in the oral cavity, Hematologic/Lymphatic - No cervical, clavicular, or axillary adenopathy, Respiratory - Lungs sound clear at this time, Cardiovascular - Heart rhythm is regular. There is a mild tachycardia. There is a II/ systolic murmur. There is no gallop or rub noted, Abdomen - Mildly distended but soft. Liver and spleen are not enlarged. There is no abdominal mass noted and there is no inguinal adenopathy, Extremities - No edema, Neurologic - No focal neurologic deficits noted. Lab/Imaging: CBC shows hemoglobin 12.5 g, white blood cell count 8100, and platelet count 268,000. Comprehensive metabolic profile is unremarkable. The bilirubin and liver enzymes are normal. Impression: 1. The patient has Morquio type A (mucopolysaccharidosis IV-A). She has been undergoing treatment with elosulfase genoveva. It is administered weekly by IV infusion. Thus far she has tolerated the treatment well. She had noted improvement in her muscle pain and in her energy/activity tolerance. Overall she had noticed a big difference with the treatment. 2. She has chronic musculoskeletal pain. Her other medical illnesses include: 3. Hypertension. 4. Mild asthma. 5. GERD. 6. Gastroparesis. 7. Degenerative arthritis. 8. Chronic migraine. 9. Chronic anxiety/depression. In June 2016 she was admitted to the hospital with increased nausea/vomiting. She underwent evaluation with a housekeeping attendant in [place], and he felt that the problems were related to the underlying gastroparesis. Her symptoms improved with addition of pantoprazole 40 mg daily and ondansetron 8 mg as needed. She had gradual recovery following her total hip arthroplasty procedures in December and in March 2016, and she continued weekly infusions of elosulfase genoveva. In April 2019 she had presented with right upper quadrant abdominal pain and markedly elevated liver enzymes. Her CT abdomen/pelvis and gallbladder ultrasound were unrevealing. She was admitted to the hospital at the [facility]. She recovered with conservative management. To my knowledge a specific cause for that illness was not determined, but during the hospitalization she was found to have pulmonary embolism, for which she has been on anticoagulation with apixaban. She has since then been stable clinically, though in July 2019 she was found to have iron deficiency anemia. She did respond adequately to oral iron supplementation. Her energy level and appetite are both somewhat variable. She has not been having respiratory problems lately and recently she has not been bothered much with the gastroparesis. Her musculoskeletal pain is adequately managed with medication. Plan: She will continue elosulfase genoveva 2 mg/kg by IV infusion weekly. With her liver enzymes normal, she has restarted hydrocodone/APAP for her musculoskeletal pain. Her other medications remain the same. She will be seen for a follow-up visit again in 3 months, or sooner as needed. Signed By: Leon Ramirez M.D. <<Signature on File>>
[2020-01-06] MEDS: sodium chloride 0.9% 500 ML 75 ML IV (13:26)
== END 2020-01-06 06:01 | disposition home or self-care (01) ==
LOC: ONCMED 06:01
PROVIDERS: PCP Nurse Practitioner Family; Visit Provider Internal Medicine Medical Oncology
DX: E00-E89 Endocrine, nutritional and metabolic diseases (principal); M79.10 Myalgia, unspecified site; D64.9 Anemia, unspecified; K21.9 Gastro-esophageal reflux disease without esophagitis; I10 Essential (primary) hypertension; J45.909 Unspecified asthma, uncomplicated; K31.84 Gastroparesis; M19.90 Unspecified osteoarthritis, unspecified site; G43.709 Chronic migraine without aura, not intractable, without status migrainosus; F41.8 Other specified anxiety disorders; Z86.711 Personal history of pulmonary embolism; Z79.01 Long term (current) use of anticoagulants; Z79.891 Long term (current) use of opiate analgesic
CPT/HCPCS: 80053; 83735; 85025; 96365; 96366; 96367; 99214; J1322; J2405; J7040; J7050

== ENCOUNTER 2020-01-13 08:08 | Outpatient (CLI) | payer MEDICARE, MEDICAID, SELFPAY ==
[2020-01-13] MEDS: famotidine 20 mg Tablet PO (08:50)
[2020-01-13] MEDS: sodium chloride 0.9% 500 ML 75 ML IV (08:50)
[2020-01-13] MEDS: acetaminophen 325 mg Tablet 650 MG PO (08:50)
[2020-01-13] MEDS: diphenoxylate/atropine Tablet 1 TAB PO (08:50)
[2020-01-13] MEDS: diphenhydrAMINE 25 mg Capsule 50 MG PO (08:50)
[2020-01-13] MEDS: oxyCODONE 5 mg IR Tab/Cap PO (13:25)
== END 2020-01-13 08:09 | disposition home or self-care (01) ==
LOC: ONCMED 08:10
PROVIDERS: PCP Nurse Practitioner Family; Visit Provider Nurse Practitioner
DX: E00-E89 Endocrine, nutritional and metabolic diseases (principal); D50.8 Other iron deficiency anemias
CPT/HCPCS: 96365; 96366; 96367; J1322; J2405; J7040; J7050

== ENCOUNTER 2020-01-20 06:09 | Outpatient (CLI) | payer MEDICARE, MEDICAID, SELFPAY ==
[2020-01-20] MEDS: sodium chloride 0.9% 500 ML 75 ML IV (08:40)
[2020-01-20] MEDS: oxyCODONE 5 mg IR Tab/Cap PO (08:47)
[2020-01-20] MEDS: famotidine 20 mg Tablet PO (08:47)
[2020-01-20] MEDS: acetaminophen 325 mg Tablet 650 MG PO (08:47)
[2020-01-20] MEDS: diphenhydrAMINE 25 mg Capsule 50 MG PO (08:47)
== END 2020-01-20 06:10 | disposition home or self-care (01) ==
LOC: ONCMED 06:13
PROVIDERS: PCP Nurse Practitioner Family; Visit Provider Internal Medicine Medical Oncology
DX: E00-E89 Endocrine, nutritional and metabolic diseases (principal); D50.8 Other iron deficiency anemias
CPT/HCPCS: 96365; 96366; 96367; J1322; J2405; J7040; J7050

== ENCOUNTER 2020-01-27 08:01 | Outpatient (CLI) | payer MEDICARE, MEDICAID, SELFPAY ==
[2020-01-27] MEDS: acetaminophen 325 mg Tablet 650 MG PO (08:10)
[2020-01-27] MEDS: famotidine 20 mg Tablet PO (08:10)
[2020-01-27] MEDS: diphenhydrAMINE 25 mg Capsule 50 MG PO (08:10)
[2020-01-27] MEDS: sodium chloride 0.9% 500 ML 75 ML IV (08:22)
[2020-01-27] MEDS: oxyCODONE 5 mg IR Tab/Cap PO (09:19)
== END 2020-01-27 08:02 | disposition home or self-care (01) ==
LOC: ONCMED 08:06
PROVIDERS: PCP Nurse Practitioner Family; Visit Provider Internal Medicine Medical Oncology
DX: E00-E89 Endocrine, nutritional and metabolic diseases (principal); D50.9 Iron deficiency anemia, unspecified
CPT/HCPCS: 96365; 96366; 96367; J1322; J2405; J7040; J7050

== ENCOUNTER 2020-02-03 06:03 | Outpatient (CLI) | payer MEDICARE, MEDICAID, SELFPAY ==
[2020-02-03] MEDS: famotidine 20 mg Tablet PO (09:05)
[2020-02-03] MEDS: acetaminophen 325 mg Tablet 650 MG PO (09:05)
[2020-02-03] MEDS: diphenhydrAMINE 25 mg Capsule 50 MG PO (09:05)
[2020-02-03] MEDS: oxyCODONE 5 mg IR Tab/Cap PO (09:05)
[2020-02-03] MEDS: sodium chloride 0.9% 500 ML 75 ML IV (09:05)
== END 2020-02-03 06:04 | disposition home or self-care (01) ==
LOC: ONCMED 06:05
PROVIDERS: PCP Nurse Practitioner Family; Visit Provider Internal Medicine Medical Oncology
DX: E00-E89 Endocrine, nutritional and metabolic diseases (principal); D50.9 Iron deficiency anemia, unspecified
CPT/HCPCS: 96365; 96366; 96367; J1322; J2405; J7040; J7050

== ENCOUNTER 2020-02-04 06:00 | Outpatient (RCR) | payer MEDICARE, MEDICAID, SELFPAY | END 2020-03-05 23:59 | disposition home or self-care (01) | LOC: SPT 06:00 | PROVIDERS: PCP Nurse Practitioner Family; Visit Provider Orthopaedic Surgery | DX: M54.9 Dorsalgia, unspecified (principal); E76.219 Morquio mucopolysaccharidoses, unspecified | CPT/HCPCS: 97140 ==

== ENCOUNTER 2020-02-10 06:18 | Outpatient (CLI) | payer MEDICARE, MEDICAID, SELFPAY ==
[2020-02-10] MEDS: famotidine 20 mg Tablet PO (08:48)
[2020-02-10] MEDS: diphenhydrAMINE 25 mg Capsule 50 MG PO (08:48)
[2020-02-10] MEDS: sodium chloride 0.9% 500 ML IV (08:50)
[2020-02-10] MEDS: acetaminophen 325 mg Tablet 650 MG PO (08:50)
[2020-02-10 09:05] VITALS: RESP 18; O2SAT 99
[2020-02-10] MEDS: oxyCODONE 5 mg IR Tab/Cap PO ×2 (09:05→15:15)
[2020-02-10 09:45] LABS: Anion Gap 17.2 (5-19); Blood Urea Nitrogen 13 mg/dL (6-20); Calcium 9.6 mg/dL (8.5-10.5); Carbon Dioxide 22 mmol/L (22-29); Chloride 100 mmol/L (98-107); Glomerular Filtration Rate 115.1 mL/min (90-130); Glucose 96 mg/dL (65-115); Osmolality Calculated 282 mOsm/kg (285-295); Potassium 3.2 mmol/L (3.5-5.1); Sodium 136 mmol/L (136-145); Vitamin B12 403 pg/mL (232-1245)
[2020-02-10] MEDS: sodium chlor 0.9% + KCl 40 mEq 40 MEQ/1,000 ML BAG 500 MEQ IV (13:30)
== END 2020-02-10 06:19 | disposition home or self-care (01) ==
LOC: ONCMED 06:21
PROVIDERS: PCP Nurse Practitioner Family; Visit Provider Internal Medicine Medical Oncology
DX: E00-E89 Endocrine, nutritional and metabolic diseases (principal); D50.8 Other iron deficiency anemias
CPT/HCPCS: 80048; 82607; 96365; 96366; 96367; J1322; J2405; J7040; J7050

== ENCOUNTER 2020-02-17 06:09 | Outpatient (CLI) | payer MEDICARE, MEDICAID, SELFPAY ==
[2020-02-17] MEDS: famotidine 20 mg Tablet PO (08:15)
[2020-02-17] MEDS: acetaminophen 325 mg Tablet 650 MG PO (08:15)
[2020-02-17] MEDS: diphenhydrAMINE 25 mg Capsule 50 MG PO (08:15)
[2020-02-17] MEDS: sodium chloride 0.9% 500 ML 75 ML IV (08:15)
[2020-02-17] MEDS: sodium chloride 0.9% 250 ML 999 ML IV (08:15)
[2020-02-17] MEDS: oxyCODONE 5 mg IR Tab/Cap PO (08:40)
== END 2020-02-17 06:10 | disposition home or self-care (01) ==
LOC: ONCMED 06:10
PROVIDERS: PCP Nurse Practitioner Family; Visit Provider Internal Medicine Medical Oncology
DX: E00-E89 Endocrine, nutritional and metabolic diseases (principal); D50.8 Other iron deficiency anemias
CPT/HCPCS: 96365; 96366; 96367; J1322; J2405; J7040; J7050

== ENCOUNTER 2020-02-24 06:15 | Outpatient (CLI) | payer MEDICARE, MEDICAID, SELFPAY ==
[2020-02-24] MEDS: famotidine 20 mg Tablet PO (08:28)
[2020-02-24] MEDS: diphenhydrAMINE 25 mg Capsule 50 MG PO (08:28)
[2020-02-24] MEDS: acetaminophen 325 mg Tablet 650 MG PO (08:30)
[2020-02-24] MEDS: sodium chloride 0.9% 1,000 ML 75 ML IV (08:30)
[2020-02-24] MEDS: sodium chloride 0.9% 500 ML 75 ML IV (08:35)
[2020-02-24 08:50] VITALS: O2SAT 98
[2020-02-24] MEDS: oxyCODONE 5 mg IR Tab/Cap PO (08:50)
== END 2020-02-24 06:16 | disposition home or self-care (01) ==
LOC: ONCMED 06:16
PROVIDERS: PCP Nurse Practitioner Family; Visit Provider Internal Medicine Medical Oncology
DX: E00-E89 Endocrine, nutritional and metabolic diseases (principal); D50.8 Other iron deficiency anemias
CPT/HCPCS: 96365; 96366; 96367; J1322; J2405; J7030; J7040; J7050

== ENCOUNTER 2020-03-02 06:11 | Outpatient (CLI) | payer MEDICARE, MEDICAID, SELFPAY ==
[2020-03-02] MEDS: diphenhydrAMINE 25 mg Capsule 50 MG PO (08:20)
[2020-03-02] MEDS: acetaminophen 325 mg Tablet 650 MG PO (08:20)
[2020-03-02] MEDS: sodium chloride 0.9% 500 ML 75 ML IV (08:20)
[2020-03-02] MEDS: oxyCODONE 5 mg IR Tab/Cap PO (09:25)
[2020-03-02] MEDS: famotidine 20 mg Tablet PO (09:25)
== END 2020-03-02 06:12 | disposition home or self-care (01) ==
LOC: ONCMED 06:12
PROVIDERS: PCP Nurse Practitioner Family; Visit Provider Internal Medicine Medical Oncology
DX: E00-E89 Endocrine, nutritional and metabolic diseases (principal); D50.8 Other iron deficiency anemias
CPT/HCPCS: 96365; 96366; 96367; J1322; J2405; J7040; J7050

== ENCOUNTER 2020-03-06 06:00 | Outpatient (RCR) | payer MEDICARE, MEDICAID, SELFPAY | END 2020-04-04 23:59 | disposition home or self-care (01) | LOC: SPT 06:00 | PROVIDERS: PCP Nurse Practitioner Family; Visit Provider Orthopaedic Surgery | DX: M54.9 Dorsalgia, unspecified (principal); E76.219 Morquio mucopolysaccharidoses, unspecified | CPT/HCPCS: 97140 ==

== ENCOUNTER 2020-03-09 06:22 | Outpatient (CLI) | payer MEDICARE, MEDICAID, SELFPAY ==
[2020-03-09] MEDS: acetaminophen 325 mg Tablet 650 MG PO (08:25)
[2020-03-09] MEDS: sodium chloride 0.9% 500 ML 75 ML IV (08:25)
[2020-03-09] MEDS: oxyCODONE 5 mg IR Tab/Cap PO (08:25)
[2020-03-09] MEDS: famotidine 20 mg Tablet PO (08:25)
[2020-03-09] MEDS: diphenhydrAMINE 25 mg Capsule 50 MG PO (08:25)
[2020-03-09 09:06] LABS: Potassium 3.4 mmol/L (3.5-5.1)
== END 2020-03-09 06:23 | disposition home or self-care (01) ==
LOC: ONCMED 06:24
PROVIDERS: PCP Nurse Practitioner Family; Visit Provider Internal Medicine Medical Oncology
DX: E00-E89 Endocrine, nutritional and metabolic diseases (principal); D50.8 Other iron deficiency anemias
CPT/HCPCS: 84132; 96365; 96366; 96367; J1322; J2405; J7040; J7050

== ENCOUNTER 2020-03-16 06:27 | Outpatient (CLI) | payer MEDICARE, MEDICAID, SELFPAY ==
[2020-03-16] MEDS: acetaminophen 325 mg Tablet 650 MG PO (08:31)
[2020-03-16] MEDS: famotidine 20 mg Tablet PO (08:31)
[2020-03-16] MEDS: sodium chloride 0.9% 500 ML 75 ML IV (08:31)
[2020-03-16] MEDS: diphenhydrAMINE 25 mg Capsule 50 MG PO (08:31)
[2020-03-16] MEDS: oxyCODONE 5 mg IR Tab/Cap PO (08:31)
[2020-03-16] MEDS: FUROsemide 20 mg Tablet PO (09:00)
[2020-03-16] MEDS: LORazepam 0.5 mg Tablet PO (09:35)
== END 2020-03-16 06:28 | disposition home or self-care (01) ==
LOC: ONCMED 06:28
PROVIDERS: PCP Nurse Practitioner Family; Visit Provider Internal Medicine Medical Oncology
DX: E00-E89 Endocrine, nutritional and metabolic diseases (principal); D50.8 Other iron deficiency anemias
CPT/HCPCS: 96365; 96366; 96367; J1322; J2405; J7040; J7050

== ENCOUNTER 2020-03-23 06:25 | Outpatient (CLI) | payer MEDICARE, MEDICAID, SELFPAY ==
[2020-03-23] MEDS: sodium chloride 0.9% 500 ML 75 ML IV (08:26)
[2020-03-23] MEDS: famotidine 20 mg Tablet PO (08:26)
[2020-03-23] MEDS: acetaminophen 325 mg Tablet 650 MG PO (08:26)
[2020-03-23] MEDS: diphenhydrAMINE 25 mg Capsule 50 MG PO (08:26)
[2020-03-23] MEDS: oxyCODONE 5 mg IR Tab/Cap PO (08:26)
[2020-03-23 08:49] LABS: Potassium 3.5 mmol/L (3.5-5.1)
== END 2020-03-23 06:26 | disposition home or self-care (01) ==
LOC: ONCMED 06:26
PROVIDERS: PCP Nurse Practitioner Family; Visit Provider Internal Medicine Medical Oncology
DX: E00-E89 Endocrine, nutritional and metabolic diseases (principal); D50.9 Iron deficiency anemia, unspecified
CPT/HCPCS: 84132; 96365; 96366; 96367; J1322; J2405; J7040; J7050

== ENCOUNTER 2020-03-30 06:02 | Outpatient (CLI) | payer MEDICARE, MEDICAID, SELFPAY ==
[2020-03-30] MEDS: sodium chloride 0.9% 500 ML 75 ML IV (08:28)
[2020-03-30] MEDS: oxyCODONE 5 mg IR Tab/Cap PO (08:28)
[2020-03-30] MEDS: famotidine 20 mg Tablet PO (08:29)
[2020-03-30] MEDS: diphenhydrAMINE 25 mg Capsule 50 MG PO (08:29)
[2020-03-30] MEDS: acetaminophen 325 mg Tablet 650 MG PO (08:29)
[2020-03-30] MEDS: LORazepam 0.5 mg Tablet PO (10:25)
== END 2020-03-30 06:03 | disposition home or self-care (01) ==
LOC: ONCMED 06:04
PROVIDERS: PCP Nurse Practitioner Family; Visit Provider Internal Medicine Medical Oncology
DX: E00-E89 Endocrine, nutritional and metabolic diseases (principal); D50.8 Other iron deficiency anemias
CPT/HCPCS: 96365; 96366; 96367; J1322; J2405; J7040; J7050

== ENCOUNTER 2020-04-05 06:00 | Outpatient (RCR) | payer MEDICARE, MEDICAID, SELFPAY | END 2020-05-05 23:59 | disposition home or self-care (01) | LOC: SPT 06:00 | PROVIDERS: PCP Nurse Practitioner Family; Visit Provider Orthopaedic Surgery | DX: M54.9 Dorsalgia, unspecified (principal); E76.219 Morquio mucopolysaccharidoses, unspecified | CPT/HCPCS: 97140 ==

== ENCOUNTER 2020-04-06 05:59 | Outpatient (CLI) | payer MEDICARE, MEDICAID, SELFPAY ==
[2020-04-06 08:48] LABS: Basophils # 0.1 10^3/uL (0.0-0.1); Basophils % 0.9 %; Eosinophils # 0.3 10^3/uL (0.0-0.8); Eosinophils % 4.8 %; Hematocrit 35.6 % (37.0-47.0); Hemoglobin 11.8 g/dL (11.5-15.3); Lymphocytes # 2.5 10^3/uL (0.8-4.8); Lymphocytes % 36.6 %; Mean Corpuscular HGB Conc 33.1 g/dL (30.0-36.0); Mean Corpuscular Hemoglobin 30.6 pg (28.0-34.0); Mean Corpuscular Volume 92.2 fL (81-99); Monocytes # 0.4 10^3/uL (0.2-0.9); Neutrophils # 3.55 10^3/uL (1.8-7.7); Neutrophils % 51.6 %; Nucleated Red Blood Cells % 0 %; Platelet Count 389 10^3/cmm (130-400); Red Blood Count 3.86 10^6/uL (4.1-5.3); Red Cell Distribution Width 15.5 % (12.1-15.1); White Blood Count 6.9 10^3/uL (4.0-10.0)
[2020-04-06 09:08] LABS: Alanine Aminotransferase 19 U/L (0-33); Albumin Level 4.1 g/dL (3.5-5.2); Alkaline Phosphatase 98 IU/L (35-105); Anion Gap 16.5 (5-19); Aspartate Amino Transferase 18 U/L (0-32); Blood Urea Nitrogen 9 mg/dL (6-20); Calcium 9.4 mg/dL (8.5-10.5); Carbon Dioxide 23 mmol/L (22-29); Chloride 102 mmol/L (98-107); Globulin 2.9 g/dL (1.3-4.6); Glomerular Filtration Rate 142.1 mL/min (90-130); Glucose 103 mg/dL (65-115); Osmolality Calculated 285 mOsm/kg (285-295); Potassium 3.5 mmol/L (3.5-5.1); Sodium 138 mmol/L (136-145); Total Bilirubin 0.2 mg/dL (0.15-1.2)
[2020-04-06 09:30] VITALS: RESP 18; O2SAT 100
[2020-04-06] MEDS: famotidine 20 mg Tablet PO (09:30)
[2020-04-06] MEDS: diphenhydrAMINE 25 mg Capsule 50 MG PO (09:30)
[2020-04-06] MEDS: oxyCODONE 5 mg IR Tab/Cap PO ×2 (09:30→13:24)
[2020-04-06] MEDS: sodium chloride 0.9% 500 ML 75 ML IV (09:30)
[2020-04-06] MEDS: acetaminophen 325 mg Tablet 650 MG PO (09:30)
[2020-04-06] MEDS: LORazepam 0.5 mg Tablet PO (10:56)
[2020-04-06 12:42] LABS: Iron 83 ug/dL (37-145); Percent Saturation 27.3 % (20-50); Total Iron Binding Capacity 303 mcg/dl; Unsaturated Iron Binding 220 ug/dL (112-347)
--- NOTE | 2020-04-07 08:43 | ONC FU_ITS ---
Dr. Ramirez Patient Follow-Up Note Patient: Elisa Campbell Unit #: [id number]: 1985 Dicatated By: Leon Ramirez M.D.Date of Visit:Apr 06, 2020 Onc Med Follow-up/Prog Note Chief Complaint: Mucopolysaccharidosis type IV-A. History of Present Illness: This is a 34 year-old woman with mucopolysaccharidosis type IV-A (Morquio type A ). She had been seen by a dry cell tester and by a genetic counselor at the [facility] during a hospital admission in February 2014. Subsequent studies did confirm a diagnosis of Morquio type A mucoploysaccharidosis. It was suggested at that time that she may want to consider the possibility of initiating a trial of therapy with Vimizin. After receiving further information about the medication, she did opt for treatment, which she started in July 2014. It is administered weekly by IV infusion, and she is receiving treatment here for her convenience, as she felt it would be difficult for her to travel to [place] for it. Subjectively, she had some improvement in her musculoskeletal pain with the treatment, and she had improvement in her performance status. [place] [facility] [place] with vomiting, abdominal pain, and diarrhea. She was transferred to [facility] in [place] and admitted to the hospital. Her GI evaluation apparently was unrevealing. She was discharged home on 06/24/2016 on Zofran ODT 8 mg and pantoprazole 40 mg daily. She has had follow-up with the incinerator plant supervisor, and he apparently felt that the problem was related to the underlying gastroparesis. During her further follow-up she has on occasion required treatment for hypokalemia. She continued her weekly infusions of elosulfase genoveva. Her medical illnesses, in addition to Morquio type A mucopolysaccharidosis , include hypertension, mild asthma, GERD, gastroparesis, and chronic migraine. She has degenerative arthritis, and she also has anxiety/depression. She underwent left total hip arthroplasty in December 2015 and right total hip arthroplasty in March 2016. She is a nonsmoker. INTERIM HISTORY: In April 2019 she began to complain of abdominal pain. Her CT abdomen/pelvis on 04/20/2019 showed no acute findings. On 04/24/2019 she presented to the emergency room with persistent right upper quadrant pain. Gallbladder ultrasound was normal. Her liver enzymes, though, were markedly elevated with SGOT 3530 U/L and SGPT 3306 U/L. Her total bilirubin was normal at 0.4 mg/dL and the alkaline phosphatase was just slightly elevated at 138/105 IU/L. Her viral hepatitis serology was negative. She was transferred to the [facility] for admission, and she improved with conservative management. A specific cause for the illness was ever determined. During the course of that hospitalization, though, she apparently was found to have evidence of pulmonary embolism, and she did start anticoagulation with apixaban. Following discharge she was able to restart her weekly elosulfase genoveva infusions. She is seen for a scheduled visit. She has been feeling pretty good generally, but lately she has felt a little drained. She is doing light work. Appetite is good. She has gained a little weight since she started taking mirtazapine for insomnia. She has not had fever. She sometimes has hot flashes and sweating at night. She was treated for a suspected herpes zoster skin eruption on the left leg 2 weeks ago. It has improved. He says her breathing has been okay lately. She still has nausea/vomiting about twice a week. Bowel and bladder function have been okay. She has generalized musculoskeletal pain which comes and goes. It is adequately managed with medication. She has migraine headaches, but she is going to be seeing Dr. Joya to restart Botox injections. Medications: Albuterol Sulfate HFA Aerosol, solution Inhalation PRN, Ativan (1 mg) Tablet Oral b.i.d. PRN, Benadryl 1 Capsule (of 25 mg) Oral q 6 hours PRN, Botox Injection Take as Directed, Coreg 1 Tablet (of 25 mg) Oral daily, Depo-Provera 150 mg (of 400 mg/mL) Intramuscular q 90 days, Effexor XR 1 Capsule (of 150 mg) Capsule SR 24 HR Oral daily, Eliquis 1 Tablet (of 2.5 mg) Oral daily, Erythromycin Base 1 Capsule (of 250 mg) Capsule Delayed Release Particles Oral four times a day, hydroCHLOROthiazide 1 Tablet (of 25 mg) Oral daily, Lasix 1 (5 mg) Tablet Oral daily PRN, Lisinopril 2.5 Tablet (of 2.5 mg) Oral daily PRN, Marinol 1 (2.5 mg) Capsule Oral b.i.d. PRN, Mobic 1 Tablet (of 7.5 mg) Oral b.i.d., Ondansetron HCl 1 (4 mg) Tablet Oral q 8 hours PRN, Pepcid 1 Tablet (of 40 mg) Oral daily, Potassium Chloride Laura ER 1 (40 meq) Tablet, controlled release Oral daily, TiZANidine HCl 1 (4 mg) Tablet Oral t.i.d. PRN Allergies: ADHESIVE, AZITHROMYCIN, COMPAZINE, GABAPENTIN, METOCLOPRAMIDE, and TraMADol HCl. Review of Systems: Constitutional - She recently has felt drained, but she is doing light work. Appetite is good. She has had some weight gain since she started taking mirtazepine. No fever. She sometimes has hot flashes and sweating at night. ECOG score is 1, ENMT - She has some sinus drainage. No mouth sores. No sore throat or difficulty swallowing, Hematologic/Lymphatic - She has some bruising, Respiratory - No shortness of breath. No cough. No pleuritic pain or hemoptysis, Cardiovascular - No angina pain. No palpitations, Gastrointestinal - She still has nausea/vomiting about twice a week. She has acid reflux. No diarrhea or constipation. No blood in the stool or black stools, Genitourinary (F) - No dysuria or hematuria. No urinary frequency. No urgency or incontinence, Musculoskeletal - She has generalized muscuoskeletal pain which comes and goes. It is adequately managed with medication, Integumentary - She recently was treated for shingles on her left leg, Neurologic - She has migraine headaches. She will be seeing Dr. Joya. No dizziness. No numbness or tingling. No other focal neurologic symptoms, Psychiatric - She has some anxiety. She has insomnia. She recently started mirtazepine. Vital Signs: Performed on Apr 06, 2020 09:03 Height - 47.00 in Weight - 105.8 lbs (LOW) BSA - 1.19 sq.m BMI - 33.67 (HIGH) Temperature - 98.9 F (HIGH) Pulse - 88 /min Respiration - 16 /min BP - 149/105 mm(hg) (HIGH) O2 Sat - 98 % Pain - 7 Physical Examination: Constitutional - She looks pretty good generally, Eyes - Sclerae nonicteric. Conjunctivae clear, ENMT - No lesions noted in the oral cavity, Hematologic/Lymphatic - No cervical, clavicular, or axillary adenopathy, Respiratory - Lungs show slightly coarse breath sounds, Cardiovascular - Heart rhythm is a little irregular. There is a II/ systolic murmur. There is no gallop or rub noted, Abdomen - Soft. Liver and spleen are not enlarged. There is no abdominal mass noted and there is no inguinal adenopathy, Extremities - No edema, Integumentary - There are few residual skin lesions on the left leg, Neurologic - No focal neurologic deficits noted. Lab/Imaging: Test performed on Apr 06, 2020 08:16 Iron 83 mcg/dL Sodium 138 mmol/L Iron Binding Capacity (TIBC) 303 mcg/dl Potassium 3.5 mmol/L % Iron Saturation 27.3 % Chloride 102 mmol/L CO2 23 mmol/L UIBC 220 mcg/dL Anion Gap 16.5 BUN 9 mg/dL Creatinine 0.5 mg/dL Cr Clearance (Est) 112.5300 mL/min eGFR 142.1 mL/min Glucose 103 mg/dL Osmolality - Calculated 285 mOsm/kg Calcium 9.4 mg/dL Protein, Total 7.0 g/dL Albumin 4.1 g/dL Globulin 2.9 g/dL Bilirubin, Total 0.2 mg/dL ALT (SGPT) 19 U/L AST (SGOT) 18 U/L Alkaline Phosphatase 98 IU/L WBC 6.9 10 3/uL RBC 3.86 10 6/uL HGB 11.8 g/dL HCT 35.6 % MCV 92.2 fL MCH 30.6 pg MCHC 33.1 g/dL RDW 15.5 % Platelet Count 389 10 3/cmm MPV 11.0 fL Neutrophils 3.55 10 3/uL Lymphocytes 2.5 10 3/uL Monocytes 0.4 10 3/uL Eosinophils 0.3 10 3/uL Basophils 0.1 10 3/uL Neutrophil % 51.6 % Lymphocyte % 36.6 % Monocyte % 6.0 % Eosinophil % 4.8 % Basophils % 0.9 % NRBC % 0 % Impression: 1. The patient has Morquio type A (mucopolysaccharidosis IV-A). She has been undergoing treatment with elosulfase genoveva. It is administered weekly by IV infusion. Thus far she has tolerated the treatment well. She had noted improvement in her muscle pain and in her energy/activity tolerance. Overall she had noticed a big difference with the treatment. 2. She has chronic musculoskeletal pain. Her other medical illnesses include: 3. Hypertension. 4. Mild asthma. 5. GERD. 6. Gastroparesis. 7. Degenerative arthritis. 8. Chronic migraine. 9. Chronic anxiety/depression. In June 2016 she was admitted to the hospital with increased nausea/vomiting. She underwent evaluation with a incinerator plant supervisor in [place], and he felt that the problems were related to the underlying gastroparesis. Her symptoms improved with addition of pantoprazole 40 mg daily and ondansetron 8 mg as needed. She had gradual recovery following her total hip arthroplasty procedures in December and in March 2016, and she continued weekly infusions of elosulfase genoveva. In April 2019 she had presented with right upper quadrant abdominal pain and markedly elevated liver enzymes. Her CT abdomen/pelvis and gallbladder ultrasound were unrevealing. She was admitted to the hospital at the [facility]. She recovered with conservative management. To my knowledge a specific cause for that illness was not determined, but during the hospitalization she was found to have pulmonary embolism, for which she has been on anticoagulation with apixaban. In July 2019 she was found to have iron deficiency anemia. She responded adequately to oral iron supplementation. During follow-up she has continued to have some fatigue and she has remained mildly anemic, though with normal transferrin saturation. She continues to have occasional vomiting associated with her gastroparesis and she has chronic migraine. Her musculoskeletal pain has been adequately managed with medication. She recently completed treatment for suspected herpes zoster skin eruption on the left leg. It does appear to be resolving. Overall, her clinical status appears stable. Plan: She will continue elosulfase genoveva 2 mg/kg by IV infusion weekly. She will continue hydrocodone/APAP for her musculoskeletal pain. She will be scheduled for a follow-up visit in 3 months. Signed By: Leon Ramirez M.D. <<Signature on File>>
== END 2020-04-06 06:00 | disposition home or self-care (01) ==
LOC: ONCMED 06:01
PROVIDERS: PCP Nurse Practitioner Family; Visit Provider Internal Medicine Medical Oncology
DX: E76.219 Morquio mucopolysaccharidoses, unspecified (principal); G43.711 Chronic migraine without aura, intractable, with status migrainosus; F98.8 Other specified behavioral and emotional disorders with onset usually occurring in childhood and adolescence; M79.10 Myalgia, unspecified site; I10 Essential (primary) hypertension; J45.909 Unspecified asthma, uncomplicated; K21.9 Gastro-esophageal reflux disease without esophagitis; K31.84 Gastroparesis; M19.90 Unspecified osteoarthritis, unspecified site; F41.8 Other specified anxiety disorders; Z79.899 Other long term (current) drug therapy; Z87.891 Personal history of nicotine dependence
CPT/HCPCS: 64615; 80053; 83540; 83550; 85025; 96365; 96366; 96367; 99213; 99214; J0585; J1322; J2405; J7040; J7050

== ENCOUNTER 2020-04-13 05:50 | Outpatient (CLI) | payer MEDICARE, MEDICAID, SELFPAY ==
[2020-04-13] MEDS: sodium chloride 0.9% 500 ML 100 ML IV (08:45)
[2020-04-13] MEDS: acetaminophen 325 mg Tablet 650 MG PO (08:45)
[2020-04-13] MEDS: diphenhydrAMINE 25 mg Capsule 50 MG PO (08:45)
[2020-04-13] MEDS: ondansetron 2 mg/ML SDV 2 mL 8 MG IV (08:45)
[2020-04-13] MEDS: famotidine 20 mg Tablet PO (08:45)
[2020-04-13] MEDS: oxyCODONE 5 mg IR Tab/Cap PO (08:45)
[2020-04-13 09:43] LABS: Potassium 4.1 mmol/L (3.5-5.1)
== END 2020-04-13 05:51 | disposition home or self-care (01) ==
LOC: ONCMED 05:53
PROVIDERS: PCP Nurse Practitioner Family; Visit Provider Internal Medicine Medical Oncology
DX: E00-E89 Endocrine, nutritional and metabolic diseases (principal); D50.8 Other iron deficiency anemias; E87.6 Hypokalemia
CPT/HCPCS: 84132; 96365; 96366; 96375; J1322; J2405; J7040; J7050

== ENCOUNTER 2020-04-20 06:28 | Outpatient (CLI) | payer MEDICARE, MEDICAID, SELFPAY ==
[2020-04-20 08:30] VITALS: RESP 20; O2SAT 99
[2020-04-20] MEDS: acetaminophen 325 mg Tablet 650 MG PO (08:30)
[2020-04-20] MEDS: famotidine 20 mg Tablet PO (08:30)
[2020-04-20] MEDS: diphenhydrAMINE 25 mg Capsule 50 MG PO (08:30)
[2020-04-20] MEDS: oxyCODONE 5 mg IR Tab/Cap PO (08:30)
[2020-04-20] MEDS: ondansetron 2 mg/ML SDV 2 mL 8 MG IV (08:35)
== END 2020-04-20 06:29 | disposition home or self-care (01) ==
LOC: ONCMED 06:30
PROVIDERS: PCP Nurse Practitioner Family; Visit Provider Internal Medicine Medical Oncology
DX: E00-E89 Endocrine, nutritional and metabolic diseases (principal); D50.8 Other iron deficiency anemias
CPT/HCPCS: 83864; 96365; 96366; 96375; J1322; J2405; J7050

== ENCOUNTER 2020-04-27 05:55 | Outpatient (CLI) | payer MEDICARE, MEDICAID, SELFPAY ==
[2020-04-27 08:40] VITALS: RESP 16
[2020-04-27] MEDS: oxyCODONE 5 mg IR Tab/Cap PO (08:40)
[2020-04-27] MEDS: famotidine 20 mg Tablet PO (08:40)
[2020-04-27] MEDS: diphenhydrAMINE 25 mg Capsule 50 MG PO (08:40)
[2020-04-27] MEDS: acetaminophen 325 mg Tablet 650 MG PO (08:40)
[2020-04-27] MEDS: ondansetron 2 mg/ML SDV 2 mL 8 MG IVP (08:43)
[2020-04-27] MEDS: sodium chloride 0.9% 500 ML 75 ML IV (08:43)
[2020-04-27] MEDS: LORazepam 0.5 mg Tablet PO (10:41)
== END 2020-04-27 05:56 | disposition home or self-care (01) ==
LOC: ONCMED 05:57
PROVIDERS: PCP Nurse Practitioner Family; Visit Provider Internal Medicine Medical Oncology
DX: E00-E89 Endocrine, nutritional and metabolic diseases (principal); D50.9 Iron deficiency anemia, unspecified; I10 Essential (primary) hypertension; J45.20 Mild intermittent asthma, uncomplicated; K21.9 Gastro-esophageal reflux disease without esophagitis; K31.84 Gastroparesis; G43.909 Migraine, unspecified, not intractable, without status migrainosus; F41.9 Anxiety disorder, unspecified; F32.9 Major depressive disorder, single episode, unspecified; Z79.890 Hormone replacement therapy; Z79.899 Other long term (current) drug therapy
CPT/HCPCS: 96365; 96366; 96367; J1322; J2405; J7040; J7050

== ENCOUNTER 2020-05-04 06:14 | Outpatient (CLI) | payer MEDICARE, MEDICAID, SELFPAY ==
[2020-05-04] MEDS: ondansetron 2 mg/ML SDV 2 mL 8 MG IVP (08:20)
[2020-05-04] MEDS: oxyCODONE 5 mg IR Tab/Cap PO (08:20)
[2020-05-04] MEDS: acetaminophen 325 mg Tablet 650 MG PO (08:20)
[2020-05-04] MEDS: famotidine 20 mg Tablet PO (08:21)
[2020-05-04] MEDS: diphenhydrAMINE 25 mg Capsule 50 MG PO (08:21)
[2020-05-04] MEDS: sodium chloride 0.9% 500 ML 75 ML IV (08:30)
== END 2020-05-04 06:15 | disposition home or self-care (01) ==
LOC: ONCMED 06:15
PROVIDERS: PCP Nurse Practitioner Family; Visit Provider Internal Medicine Medical Oncology
DX: E00-E89 Endocrine, nutritional and metabolic diseases (principal); D50.8 Other iron deficiency anemias
CPT/HCPCS: 96365; 96366; 96375; J1322; J2405; J7040; J7050

== ENCOUNTER 2020-05-06 06:00 | Outpatient (RCR) | payer MEDICARE, MEDICAID, SELFPAY | END 2020-06-05 23:59 | disposition home or self-care (01) | LOC: SPT 06:00 | PROVIDERS: PCP Nurse Practitioner Family; Visit Provider Orthopaedic Surgery | DX: M54.9 Dorsalgia, unspecified (principal); E76.219 Morquio mucopolysaccharidoses, unspecified | CPT/HCPCS: 97140 ==

== ENCOUNTER 2020-05-11 07:53 | Outpatient (CLI) | payer MEDICARE, MEDICAID, SELFPAY ==
[2020-05-11] MEDS: sodium chloride 0.9% 500 ML 75 ML IV (08:15)
[2020-05-11] MEDS: acetaminophen 325 mg Tablet 650 MG PO (08:15)
[2020-05-11] MEDS: diphenhydrAMINE 25 mg Capsule 50 MG PO (08:16)
[2020-05-11] MEDS: famotidine 20 mg Tablet PO (08:16)
[2020-05-11] MEDS: ondansetron 2 mg/ML SDV 2 mL 8 MG IVP (08:35)
[2020-05-11 08:43] LABS: Basophils # 0.1 10^3/uL (0.0-0.1); Basophils % 0.7 %; Eosinophils # 0.3 10^3/uL (0.0-0.8); Eosinophils % 3.4 %; Hematocrit 39.9 % (37.0-47.0); Hemoglobin 12.9 g/dL (11.5-15.3); Lymphocytes # 3.9 10^3/uL (0.8-4.8); Lymphocytes % 40.8 %; Mean Corpuscular HGB Conc 32.3 g/dL (30.0-36.0); Mean Corpuscular Hemoglobin 30.5 pg (28.0-34.0); Mean Corpuscular Volume 94.3 fL (81-99); Mean Platelet Volume 10.9 fL (7.4-10.4); Monocytes # 0.8 10^3/uL (0.2-0.9); Monocytes % 8.6 %; Neutrophils # 4.43 10^3/uL (1.8-7.7); Neutrophils % 46.3 %; Nucleated Red Blood Cells % 0 %; Platelet Count 366 10^3/cmm (130-400); Red Blood Count 4.23 10^6/uL (4.1-5.3); Red Cell Distribution Width 13.7 % (12.1-15.1); White Blood Count 9.6 10^3/uL (4.0-10.0)
[2020-05-11 09:14] LABS: Alanine Aminotransferase 19 U/L (0-33); Albumin Level 4.6 g/dL (3.5-5.2); Alkaline Phosphatase 91 IU/L (35-105); Anion Gap 16.1 (5-19); Aspartate Amino Transferase 23 U/L (0-32); Blood Urea Nitrogen 17 mg/dL (6-20); Calcium 9.8 mg/dL (8.5-10.5); Carbon Dioxide 26 mmol/L (22-29); Chloride 102 mmol/L (98-107); Globulin 2.6 g/dL (1.3-4.6); Glomerular Filtration Rate 96.4 mL/min (90-130); Glucose 88 mg/dL (65-115); Osmolality Calculated 291 mOsm/kg (285-295); Potassium 4.1 mmol/L (3.5-5.1); Sodium 140 mmol/L (136-145); Total Bilirubin 0.3 mg/dL (0.15-1.2); Total Protein 7.2 g/dL (6.6-8.7)
[2020-05-11] MEDS: oxyCODONE 5 mg IR Tab/Cap PO (15:39)
== END 2020-05-11 07:54 | disposition home or self-care (01) ==
LOC: ONCMED 07:57
PROVIDERS: PCP Nurse Practitioner Family; Visit Provider Internal Medicine Medical Oncology
DX: E00-E89 Endocrine, nutritional and metabolic diseases (principal); D50.8 Other iron deficiency anemias
CPT/HCPCS: 80053; 85025; 96365; 96366; 96375; J1322; J2405; J7040; J7050

== ENCOUNTER 2020-05-18 05:46 | Outpatient (CLI) | payer MEDICARE, MEDICAID, SELFPAY ==
[2020-05-18] MEDS: famotidine 20 mg Tablet PO (08:04)
[2020-05-18] MEDS: diphenhydrAMINE 25 mg Capsule 50 MG PO (08:04)
[2020-05-18] MEDS: ondansetron 2 mg/ML SDV 2 mL 8 MG IVP (08:05)
[2020-05-18] MEDS: sodium chloride 0.9% 500 ML 75 ML IV (08:05)
[2020-05-18] MEDS: acetaminophen 325 mg Tablet 650 MG PO (08:05)
[2020-05-18] MEDS: oxyCODONE 5 mg IR Tab/Cap PO (08:30)
[2020-05-18] MEDS: LORazepam 0.5 mg Tablet PO (11:04)
== END 2020-05-18 05:47 | disposition home or self-care (01) ==
LOC: ONCMED 05:47
PROVIDERS: PCP Nurse Practitioner Family; Visit Provider Nurse Practitioner
DX: E00-E89 Endocrine, nutritional and metabolic diseases (principal); D50.8 Other iron deficiency anemias
CPT/HCPCS: 96365; 96366; 96375; J1322; J2405; J7040; J7050

== ENCOUNTER 2020-05-25 06:04 | Outpatient (CLI) | payer MEDICARE, MEDICAID, SELFPAY ==
[2020-05-25] MEDS: sodium chloride 0.9% 500 ML 75 ML IV (08:29)
[2020-05-25] MEDS: famotidine 20 mg Tablet PO (08:29)
[2020-05-25] MEDS: ondansetron 2 mg/ML SDV 2 mL 8 MG IV (08:29)
[2020-05-25] MEDS: diphenhydrAMINE 25 mg Capsule 50 MG PO (08:29)
[2020-05-25] MEDS: acetaminophen 325 mg Tablet 650 MG PO (08:29)
[2020-05-25] MEDS: oxyCODONE 5 mg IR Tab/Cap PO (08:29)
[2020-05-25] MEDS: LORazepam 0.5 mg Tablet PO (10:04)
== END 2020-05-25 06:05 | disposition home or self-care (01) ==
LOC: ONCMED 06:06
PROVIDERS: PCP Nurse Practitioner Family; Visit Provider Internal Medicine Medical Oncology
DX: E00-E89 Endocrine, nutritional and metabolic diseases (principal); D50.8 Other iron deficiency anemias
CPT/HCPCS: 96365; 96366; 96375; J1322; J2405; J7040; J7050

== ENCOUNTER 2020-06-01 06:15 | Outpatient (CLI) | payer MEDICARE, MEDICAID, SELFPAY ==
[2020-06-01] MEDS: ondansetron 2 mg/ML SDV 2 mL 8 MG IVP (08:40)
[2020-06-01] MEDS: sodium chloride 0.9% 500 ML 75 ML IV (08:40)
[2020-06-01] MEDS: oxyCODONE 5 mg IR Tab/Cap PO ×2 (08:43→12:40)
[2020-06-01] MEDS: acetaminophen 325 mg Tablet 650 MG PO (08:43)
[2020-06-01] MEDS: famotidine 20 mg Tablet PO (08:43)
[2020-06-01] MEDS: diphenhydrAMINE 25 mg Capsule 50 MG PO (08:43)
[2020-06-01] MEDS: LORazepam 0.5 mg Tablet PO (10:11)
== END 2020-06-01 06:16 | disposition home or self-care (01) ==
LOC: ONCMED 06:16
PROVIDERS: PCP Nurse Practitioner Family; Visit Provider Internal Medicine Medical Oncology
DX: E00-E89 Endocrine, nutritional and metabolic diseases (principal); D50.8 Other iron deficiency anemias
CPT/HCPCS: 96365; 96366; 96375; J1322; J2405; J7040; J7050

== ENCOUNTER 2020-06-06 06:00 | Outpatient (RCR) | payer MEDICARE, MEDICAID, SELFPAY | END 2020-07-03 23:59 | disposition home or self-care (01) | LOC: SPT 06:00 | PROVIDERS: PCP Nurse Practitioner Family; Visit Provider Orthopaedic Surgery | DX: M54.9 Dorsalgia, unspecified (principal); E76.219 Morquio mucopolysaccharidoses, unspecified | CPT/HCPCS: 97140 ==

== ENCOUNTER 2020-06-08 06:10 | Outpatient (CLI) | payer MEDICARE, MEDICAID, SELFPAY ==
[2020-06-08] MEDS: sodium chloride 0.9% 500 ML 75 ML IV (08:26)
[2020-06-08] MEDS: ondansetron 2 mg/ML SDV 2 mL 8 MG IVP (08:26)
[2020-06-08] MEDS: diphenhydrAMINE 25 mg Capsule 50 MG PO (08:28)
[2020-06-08] MEDS: oxyCODONE 5 mg IR Tab/Cap PO ×2 (08:28→12:54)
[2020-06-08] MEDS: acetaminophen 325 mg Tablet 650 MG PO (08:28)
[2020-06-08] MEDS: famotidine 20 mg Tablet PO (08:28)
[2020-06-08 12:54] VITALS: RESP 16
== END 2020-06-08 06:11 | disposition home or self-care (01) ==
LOC: ONCMED 06:14
PROVIDERS: PCP Nurse Practitioner Family; Visit Provider Internal Medicine Medical Oncology
DX: E00-E89 Endocrine, nutritional and metabolic diseases (principal); D50.8 Other iron deficiency anemias
CPT/HCPCS: 96365; 96366; 96375; J1322; J2405; J7040; J7050

== ENCOUNTER 2020-06-15 05:59 | Outpatient (CLI) | payer MEDICARE, MEDICAID, SELFPAY ==
[2020-06-15] MEDS: ondansetron 2 mg/ML SDV 2 mL 8 MG IVP (08:20)
[2020-06-15] MEDS: diphenhydrAMINE 25 mg Capsule 50 MG PO (08:22)
[2020-06-15] MEDS: acetaminophen 325 mg Tablet 650 MG PO (08:22)
[2020-06-15] MEDS: famotidine 20 mg Tablet PO (08:22)
[2020-06-15 08:40] VITALS: RESP 16
[2020-06-15] MEDS: oxyCODONE 5 mg IR Tab/Cap PO ×2 (08:40→12:40)
[2020-06-15] MEDS: sodium chloride 0.9% 500 ML 75 ML IV (08:40)
[2020-06-15 12:40] VITALS: RESP 16; O2SAT 96
== END 2020-06-15 06:00 | disposition home or self-care (01) ==
LOC: ONCMED 06:01
PROVIDERS: PCP Nurse Practitioner Family; Visit Provider Internal Medicine Medical Oncology
DX: E00-E89 Endocrine, nutritional and metabolic diseases (principal); D50.9 Iron deficiency anemia, unspecified; Z79.890 Hormone replacement therapy
CPT/HCPCS: 96365; 96366; 96375; J1322; J2405; J7040; J7050

== ENCOUNTER 2020-06-23 07:51 | Outpatient (CLI) | payer MEDICARE, MEDICAID, SELFPAY ==
[2020-06-23] MEDS: acetaminophen 325 mg Tablet 650 MG PO (08:25)
[2020-06-23] MEDS: ondansetron 2 mg/ML SDV 2 mL 8 MG IVP (08:25)
[2020-06-23] MEDS: sodium chloride 0.9% 500 ML 300 ML IV (08:25)
[2020-06-23] MEDS: famotidine 20 mg Tablet PO (08:25)
[2020-06-23] MEDS: diphenhydrAMINE 25 mg Capsule 50 MG PO (08:35)
[2020-06-23] MEDS: oxyCODONE 5 mg IR Tab/Cap PO ×2 (08:50→12:50)
[2020-06-23] MEDS: LORazepam 0.5 mg Tablet PO (09:18)
[2020-06-23 12:50] VITALS: RESP 18; O2SAT 100
== END 2020-06-23 07:52 | disposition home or self-care (01) ==
PROVIDERS: PCP Nurse Practitioner Family; Visit Provider Internal Medicine Medical Oncology
DX: Z51.12 Encounter for antineoplastic immunotherapy (principal); E00-E89 Endocrine, nutritional and metabolic diseases; D50.9 Iron deficiency anemia, unspecified
CPT/HCPCS: 96365; 96366; 96375; J1322; J2405; J7040; J7050

== ENCOUNTER 2020-06-30 05:59 | Outpatient (CLI) | payer MEDICARE, MEDICAID, SELFPAY ==
[2020-06-30 08:28] VITALS: RESP 18; O2SAT 99
[2020-06-30] MEDS: oxyCODONE 5 mg IR Tab/Cap PO ×2 (08:28→13:00)
[2020-06-30] MEDS: diphenhydrAMINE 25 mg Capsule 50 MG PO (08:28)
[2020-06-30] MEDS: acetaminophen 325 mg Tablet 650 MG PO (08:28)
[2020-06-30] MEDS: sodium chloride 0.9% 500 ML 100 ML IV (08:28)
[2020-06-30] MEDS: ondansetron 2 mg/ML SDV 2 mL 8 MG IVP (08:28)
[2020-06-30] MEDS: famotidine 20 mg Tablet PO (08:28)
[2020-06-30] MEDS: LORazepam 0.5 mg Tablet PO (10:05)
== END 2020-06-30 06:00 | disposition home or self-care (01) ==
LOC: ONCMED 05:59
PROVIDERS: PCP Nurse Practitioner Family; Visit Provider Internal Medicine Medical Oncology
DX: G43.711 Chronic migraine without aura, intractable, with status migrainosus (principal); F98.8 Other specified behavioral and emotional disorders with onset usually occurring in childhood and adolescence; E76.219 Morquio mucopolysaccharidoses, unspecified
CPT/HCPCS: 64615; 96365; 96366; 96372; 96375; 99213; J0585; J1322; J1885; J2405; J7040; J7050

== ENCOUNTER 2020-07-04 06:00 | Outpatient (RCR) | payer MEDICARE, MEDICAID, SELFPAY | END 2020-08-03 23:59 | disposition home or self-care (01) | LOC: SPT 06:00 | PROVIDERS: PCP Nurse Practitioner Family; Visit Provider Orthopaedic Surgery | DX: M54.9 Dorsalgia, unspecified (principal); E76.219 Morquio mucopolysaccharidoses, unspecified | CPT/HCPCS: 97140 ==

== ENCOUNTER 2020-07-06 06:07 | Outpatient (CLI) | payer MEDICARE, MEDICAID, SELFPAY ==
[2020-07-06] MEDS: sodium chloride 0.9% 500 ML 100 ML IV (08:00)
[2020-07-06] MEDS: acetaminophen 325 mg Tablet 650 MG PO (08:25)
[2020-07-06 08:35] LABS: Basophils # 0.1 10^3/uL (0.0-0.1); Basophils % 0.6 %; Eosinophils # 0.3 10^3/uL (0.0-0.8); Eosinophils % 3.6 %; Hematocrit 37.1 % (37.0-47.0); Hemoglobin 12.1 g/dL (11.5-15.3); Lymphocytes # 2.8 10^3/uL (0.8-4.8); Lymphocytes % 36.3 %; Mean Corpuscular HGB Conc 32.6 g/dL (30.0-36.0); Mean Corpuscular Hemoglobin 29.8 pg (28.0-34.0); Mean Corpuscular Volume 91.4 fL (81-99); Mean Platelet Volume 10.8 fL (7.4-10.4); Monocytes # 0.5 10^3/uL (0.2-0.9); Monocytes % 6.9 %; Neutrophils # 4.07 10^3/uL (1.8-7.7); Neutrophils % 52.5 %; Nucleated Red Blood Cells % 0 %; Platelet Count 304 10^3/cmm (130-400); Red Blood Count 4.06 10^6/uL (4.1-5.3); Red Cell Distribution Width 12.9 % (12.1-15.1); White Blood Count 7.8 10^3/uL (4.0-10.0)
[2020-07-06] MEDS: famotidine 20 mg Tablet PO (08:35)
[2020-07-06] MEDS: diphenhydrAMINE 25 mg Capsule 50 MG PO (08:35)
[2020-07-06] MEDS: oxyCODONE 5 mg IR Tab/Cap PO ×2 (08:35)
[2020-07-06] MEDS: ondansetron 2 mg/ML SDV 2 mL 8 MG IVP (08:37)
[2020-07-06 09:01] LABS: Alanine Aminotransferase 12 U/L (0-33); Albumin Level 4.5 g/dL (3.5-5.2); Alkaline Phosphatase 84 IU/L (35-105); Anion Gap 15.4 (5-19); Aspartate Amino Transferase 19 U/L (0-32); Blood Urea Nitrogen 20 mg/dL (6-20); Calcium 9.7 mg/dL (8.5-10.5); Carbon Dioxide 25 mmol/L (22-29); Chloride 95 mmol/L (98-107); Globulin 2.7 g/dL (1.3-4.6); Glomerular Filtration Rate 82.6 mL/min (90-130); Glucose 88 mg/dL (65-115); Osmolality Calculated 276 mOsm/kg (285-295); Potassium 3.4 mmol/L (3.5-5.1); Sodium 132 mmol/L (136-145); Total Bilirubin 0.3 mg/dL (0.15-1.2); Total Protein 7.2 g/dL (6.6-8.7)
[2020-07-06] MEDS: LORazepam 0.5 mg Tablet PO (10:22)
--- NOTE | 2020-07-06 18:59 | ONC FU_ITS ---
Dr. Ramirez Patient Follow-Up Note Patient: Elisa Campbell Unit #: [id number]: 1985 Dicatated By: Leon Ramirez M.D.Date of Visit:Jul 06, 2020 Onc Med Follow-up/Prog Note Chief Complaint: Mucopolysaccharidosis type IV-A. History of Present Illness: This is a 34 year-old woman with mucopolysaccharidosis type IV-A (Morquio type A ). She had been seen by a stenotypist and by a genetic counselor at the [facility] during a hospital admission in February 2014. Subsequent studies did confirm a diagnosis of Morquio type A mucoploysaccharidosis. It was suggested at that time that she may want to consider the possibility of initiating a trial of therapy with Vimizin. After receiving further information about the medication, she did opt for treatment, which she started in July 2014. For convenience she requested to receive her treatment here, as it required weekly administration and she felt it would be difficult for her to travel to [place] for it. Subjectively, she had some improvement in her musculoskeletal pain with the treatment, and she also had improvement in her performance status. [place] [facility] [place] with vomiting, abdominal pain, and diarrhea. She was transferred to [facility] in [place] and admitted to the hospital. Her GI evaluation apparently was unrevealing. She was discharged home on 06/24/2016 on Zofran ODT 8 mg and pantoprazole 40 mg daily. She has had follow-up with the national dedicated truck driver, and he apparently felt that the problem was related to the underlying gastroparesis. During her further follow-up she required required treatment for hypokalemia on an intermittent basis. She continued her weekly infusions of elosulfase genoveva. In April 2019 she began to complain of abdominal pain. Her CT abdomen/pelvis on 04/20/2019 showed no acute findings. On 04/24/2019 she presented to the emergency room with persistent right upper quadrant pain. Gallbladder ultrasound was normal. Her liver enzymes, though, were markedly elevated with SGOT 3530 U/L and SGPT 3306 U/L. Her total bilirubin was normal at 0.4 mg/dL and the alkaline phosphatase was just slightly elevated at 138/105 IU/L. Her viral hepatitis serology was negative. She was transferred to the [facility] for admission, and she improved with conservative management. A specific cause for the illness was ever determined. During the course of that hospitalization, though, she apparently was found to have evidence of pulmonary embolism, and she did start anticoagulation with apixaban. Following discharge she was able to restart her weekly elosulfase genoveva infusions. Her medical illnesses, in addition to Morquio type A mucopolysaccharidosis , include hypertension, mild asthma, GERD, gastroparesis, and chronic migraine. She has degenerative arthritis, and she also has anxiety/depression. She underwent left total hip arthroplasty in December 2015 and right total hip arthroplasty in March 2016. She is a nonsmoker. INTERIM HISTORY: She is seen for a scheduled visit. She has been feeling pretty good generally, though her energy comes and goes. Her ECOG score is 1. Appetite also comes and goes, but she has been gaining weight. She has not had fever or night sweats. She sometimes has hot flashes. She complains that her sinuses are stopped up a lot, but she does not have drainage with it. Her breathing lately has been okay. She has not been having cough and she does not complain of chest pain. She says her stomach has not been too bad. The gastroparesis still bothers her occasionally, typically about once every 2 to 3 weeks. Bowel and bladder function have been okay. She has chronic musculoskeletal pain which she describes as steady . It is adequately managed with her pain medication. She does receive Botox injections for chronic migraine. She has no focal neurologic symptoms. Medications: Albuterol Sulfate HFA Aerosol, solution Inhalation PRN, Ativan (1 mg) Tablet Oral b.i.d. PRN, Benadryl 1 Capsule (of 25 mg) Oral q 6 hours PRN, Botox Injection Take as Directed, Coreg 1 Tablet (of 25 mg) Oral daily, Depo-Provera 150 mg (of 400 mg/mL) Intramuscular q 90 days, Effexor XR 1 Capsule (of 150 mg) Capsule SR 24 HR Oral daily, Eliquis 1 Tablet (of 2.5 mg) Oral daily, Erythromycin Base 1 Capsule (of 250 mg) Capsule Delayed Release Particles Oral four times a day, hydroCHLOROthiazide 1 Tablet (of 25 mg) Oral daily, Lasix 1 (5 mg) Tablet Oral daily PRN, Lisinopril 2.5 Tablet (of 2.5 mg) Oral daily PRN, Marinol 1 (2.5 mg) Capsule Oral b.i.d. PRN, Mobic 1 Tablet (of 7.5 mg) Oral b.i.d., Ondansetron HCl 1 (4 mg) Tablet Oral q 8 hours PRN, Pepcid 1 Tablet (of 40 mg) Oral daily, Potassium Chloride Laura ER 1 (40 meq) Tablet, controlled release Oral daily, TiZANidine HCl 1 (4 mg) Tablet Oral t.i.d. PRN Allergies: ADHESIVE, AZITHROMYCIN, COMPAZINE, GABAPENTIN, METOCLOPRAMIDE, and TraMADol HCl. Vital Signs: Performed on Jul 06, 2020 09:33 Height - 47.00 in Weight - 112.4 lbs (HIGH) BSA - 1.22 sq.m BMI - 35.77 (HIGH) Temperature - 98.5 F Pulse - 81 /min Respiration - 18 /min BP - 130/90 mm(hg) O2 Sat - 99 % Pain - 6 Fatigue - 2 Physical Examination: Constitutional - She looks pretty good generally, Eyes - Sclerae nonicteric. Conjunctivae clear, ENMT - No lesions noted in the oral cavity, Hematologic/Lymphatic - No cervical, clavicular, or axillary adenopathy, Respiratory - Lungs sound clear, Cardiovascular - Heart rhythm is regular. There is a II/ systolic murmur. There is no gallop or rub noted, Abdomen - Soft. Liver and spleen are not enlarged. There is no abdominal mass noted and there is no inguinal adenopathy, Extremities - No edema, Neurologic - No focal neurologic deficits noted. Lab/Imaging: Test performed on Jul 06, 2020 08:19 Sodium 132 mmol/L Potassium 3.4 mmol/L Chloride 95 mmol/L CO2 25 mmol/L Anion Gap 15.4 BUN 20 mg/dL Creatinine 0.8 mg/dL Cr Clearance (Est) 78.9300 mL/min eGFR 82.6 mL/min Glucose 88 mg/dL Osmolality - Calculated 276 mOsm/kg Calcium 9.7 mg/dL Protein, Total 7.2 g/dL Albumin 4.5 g/dL Globulin 2.7 g/dL Bilirubin, Total 0.3 mg/dL ALT (SGPT) 12 U/L AST (SGOT) 19 U/L Alkaline Phosphatase 84 IU/L WBC 7.8 10 3/uL RBC 4.06 10 6/uL HGB 12.1 g/dL HCT 37.1 % MCV 91.4 fL MCH 29.8 pg MCHC 32.6 g/dL RDW 12.9 % Platelet Count 304 10 3/cmm MPV 10.8 fL Neutrophils 4.07 10 3/uL Lymphocytes 2.8 10 3/uL Monocytes 0.5 10 3/uL Eosinophils 0.3 10 3/uL Basophils 0.1 10 3/uL Neutrophil % 52.5 % Lymphocyte % 36.3 % Monocyte % 6.9 % Eosinophil % 3.6 % Basophils % 0.6 % NRBC % 0 % Problem List: 1. Morquio type A (mucopolysaccharidosis IV-A). 2. She has chronic musculoskeletal pain. 3. She has recurrent episodes of hypokalemia. 4. She has required treatment for iron deficiency anemia. 5. Hypertension. 6. Mild asthma. 7. GERD. 8. Gastroparesis. 9. Degenerative arthritis. 10. Chronic migraine. 11. Chronic anxiety/depression. Problems Addressed with this Encounter and Plan: 1. Patient with Morquio type A (mucopolysaccharidosis IV-A). She began treatment with elosulfase genoveva in July 2014. She has tolerated the treatment well, and she had noted improvement in her muscle pain and in her energy/activity tolerance. Overall she had noticed a big difference with the treatment. Her clinical status at this point appears stable. She has had a recent follow-up visit with her stenotypist. She will continue elosulfase genoveva 2 mg/kg by IV infusion weekly. She will be scheduled for a follow-up visit in 3 months. 2. She has chronic musculoskeletal pain. It has been managed adequately with hydrocodone/APAP. She has been gradually cutting back on her opiate usage. It will be continued as ordered. 3. She has had intermittent episodes of hypokalemia. Her potassium today is just slightly low on her oral supplement. Her chemistry studies will be monitored monthly and more frequently as needed. Signed By: Leon Ramirez M.D. <<Signature on File>>
== END 2020-07-06 06:08 | disposition home or self-care (01) ==
LOC: ONCMED 06:09
PROVIDERS: PCP Nurse Practitioner Family; Visit Provider Internal Medicine Medical Oncology
DX: E00-E89 Endocrine, nutritional and metabolic diseases (principal); M79.10 Myalgia, unspecified site; E87.6 Hypokalemia; Z79.891 Long term (current) use of opiate analgesic
CPT/HCPCS: 80053; 85025; 96365; 96366; 96375; 99214; J1322; J2405; J7040; J7050

== ENCOUNTER 2020-07-13 06:20 | Outpatient (CLI) | payer MEDICARE, MEDICAID, SELFPAY ==
[2020-07-13] MEDS: ondansetron 2 mg/ML SDV 2 mL 8 MG IVP (08:41)
[2020-07-13] MEDS: diphenhydrAMINE 25 mg Capsule 50 MG PO (08:42)
[2020-07-13] MEDS: famotidine 20 mg Tablet PO (08:42)
[2020-07-13] MEDS: oxyCODONE 5 mg IR Tab/Cap PO (08:42)
[2020-07-13] MEDS: sodium chloride 0.9% 500 ML 75 ML IV (08:42)
[2020-07-13] MEDS: acetaminophen 325 mg Tablet 650 MG PO (08:42)
== END 2020-07-13 06:21 | disposition home or self-care (01) ==
LOC: ONCMED 06:22
PROVIDERS: PCP Nurse Practitioner Family; Visit Provider Internal Medicine Medical Oncology
DX: E00-E89 Endocrine, nutritional and metabolic diseases (principal); D50.8 Other iron deficiency anemias
CPT/HCPCS: 96365; 96366; 96375; J1322; J2405; J7040; J7050

== ENCOUNTER 2020-07-20 06:14 | Outpatient (CLI) | payer MEDICARE, MEDICAID, SELFPAY ==
[2020-07-20] MEDS: ondansetron 2 mg/ML SDV 2 mL 8 MG IVP (08:34)
[2020-07-20] MEDS: sodium chloride 0.9% 500 ML 100 ML IV (08:35)
[2020-07-20] MEDS: diphenhydrAMINE 25 mg Capsule 50 MG PO (08:35)
[2020-07-20] MEDS: famotidine 20 mg Tablet PO (08:35)
[2020-07-20] MEDS: acetaminophen 325 mg Tablet 650 MG PO (08:35)
[2020-07-20] MEDS: oxyCODONE 5 mg IR Tab/Cap PO ×2 (08:35→12:50)
== END 2020-07-20 06:15 | disposition home or self-care (01) ==
LOC: ONCMED 06:16
PROVIDERS: PCP Nurse Practitioner Family; Visit Provider Internal Medicine Medical Oncology
DX: E00-E89 Endocrine, nutritional and metabolic diseases (principal); D50.9 Iron deficiency anemia, unspecified
CPT/HCPCS: 96365; 96366; 96375; J1322; J2405; J7040; J7050

== ENCOUNTER 2020-07-27 05:53 | Outpatient (CLI) | payer MEDICARE, MEDICAID, SELFPAY ==
[2020-07-27] MEDS: sodium chloride 0.9% 500 ML 75 ML IV (08:20)
[2020-07-27] MEDS: acetaminophen 325 mg Tablet 650 MG PO (08:25)
[2020-07-27] MEDS: diphenhydrAMINE 25 mg Capsule 50 MG PO (08:25)
[2020-07-27 08:40] VITALS: RESP 17; O2SAT 98
[2020-07-27] MEDS: famotidine 20 mg Tablet PO (08:40)
[2020-07-27] MEDS: oxyCODONE 5 mg IR Tab/Cap PO (08:40)
[2020-07-27] MEDS: ondansetron 2 mg/ML SDV 2 mL 8 MG IVP (08:40)
== END 2020-07-27 05:54 | disposition home or self-care (01) ==
LOC: ONCMED 05:56
PROVIDERS: PCP Nurse Practitioner Family; Visit Provider Internal Medicine Medical Oncology
DX: E00-E89 Endocrine, nutritional and metabolic diseases (principal); D50.8 Other iron deficiency anemias
CPT/HCPCS: 96365; 96366; 96375; J1322; J2405; J7040; J7050

== ENCOUNTER 2020-08-03 06:21 | Outpatient (CLI) | payer MEDICARE, MEDICAID, SELFPAY ==
[2020-08-03] MEDS: oxyCODONE 5 mg IR Tab/Cap PO ×2 (08:45→13:30)
[2020-08-03] MEDS: acetaminophen 325 mg Tablet 650 MG PO (08:45)
[2020-08-03] MEDS: sodium chloride 0.9% 500 ML 100 ML IV (08:45)
[2020-08-03] MEDS: diphenhydrAMINE 25 mg Capsule 50 MG PO (08:45)
[2020-08-03] MEDS: ondansetron 2 mg/ML SDV 2 mL 8 MG IVP (08:45)
[2020-08-03] MEDS: famotidine 20 mg Tablet PO (08:45)
[2020-08-03 09:39] LABS: Alanine Aminotransferase 15 U/L (0-33); Albumin Level 4.6 g/dL (3.5-5.2); Alkaline Phosphatase 104 IU/L (35-105); Anion Gap 19.8 (5-19); Aspartate Amino Transferase 18 U/L (0-32); Blood Urea Nitrogen 7 mg/dL (6-20); Calcium 10.3 mg/dL (8.5-10.5); Carbon Dioxide 22 mmol/L (22-29); Chloride 95 mmol/L (98-107); Globulin 3.4 g/dL (1.3-4.6); Glomerular Filtration Rate 96.4 mL/min (90-130); Glucose 95 mg/dL (65-115); Osmolality Calculated 274 mOsm/kg (285-295); Potassium 3.8 mmol/L (3.5-5.1); Sodium 133 mmol/L (136-145); Total Bilirubin 0.4 mg/dL (0.15-1.2)
[2020-08-03 13:35] LABS: Magnesium 1.8 mg/dL (1.7-2.3)
== END 2020-08-03 06:22 | disposition home or self-care (01) ==
LOC: ONCMED 06:23
PROVIDERS: PCP Nurse Practitioner Family; Visit Provider Internal Medicine Medical Oncology
DX: E00-E89 Endocrine, nutritional and metabolic diseases (principal); D50.9 Iron deficiency anemia, unspecified; Z79.899 Other long term (current) drug therapy
CPT/HCPCS: 80053; 83735; 84443; 96365; 96366; 96375; J1322; J2405; J7040; J7050

== ENCOUNTER 2020-08-04 06:00 | Outpatient (RCR) | payer MEDICARE, MEDICAID, SELFPAY | END 2020-09-02 23:59 | disposition home or self-care (01) | LOC: SPT 06:00 | PROVIDERS: PCP Nurse Practitioner Family; Visit Provider Orthopaedic Surgery | DX: E76.219 Morquio mucopolysaccharidoses, unspecified (principal) | CPT/HCPCS: 97140 ==

== ENCOUNTER 2020-08-10 06:29 | Outpatient (CLI) | payer MEDICARE, MEDICAID, SELFPAY ==
[2020-08-10] MEDS: diphenhydrAMINE 25 mg Capsule 50 MG PO (08:30)
[2020-08-10] MEDS: famotidine 20 mg Tablet PO (08:30)
[2020-08-10] MEDS: acetaminophen 325 mg Tablet 650 MG PO (08:30)
[2020-08-10] MEDS: sodium chloride 0.9% 500 ML 75 ML IV (08:30)
[2020-08-10] MEDS: ondansetron 2 mg/ML SDV 2 mL 8 MG IVP (08:32)
[2020-08-10 09:00] VITALS: RESP 18; O2SAT 100
[2020-08-10] MEDS: oxyCODONE 5 mg IR Tab/Cap PO (09:00)
[2020-08-10] MEDS: LORazepam 0.5 mg Tablet PO (09:25)
== END 2020-08-10 06:30 | disposition home or self-care (01) ==
LOC: ONCMED 06:31
PROVIDERS: PCP Nurse Practitioner Family; Visit Provider Internal Medicine Medical Oncology
DX: E00-E89 Endocrine, nutritional and metabolic diseases (principal); D50.8 Other iron deficiency anemias
CPT/HCPCS: 96365; 96366; 96375; J1322; J2405; J7040; J7050

== ENCOUNTER 2020-08-17 07:42 | Outpatient (CLI) | payer MEDICARE, MEDICAID, SELFPAY ==
[2020-08-17] MEDS: oxyCODONE 5 mg IR Tab/Cap PO (08:38)
[2020-08-17] MEDS: sodium chloride 0.9% 500 ML 75 ML IV (08:38)
[2020-08-17] MEDS: famotidine 20 mg Tablet PO (08:38)
[2020-08-17] MEDS: diphenhydrAMINE 25 mg Capsule 50 MG PO (08:38)
[2020-08-17] MEDS: acetaminophen 325 mg Tablet 650 MG PO (08:38)
[2020-08-17] MEDS: ondansetron 2 mg/ML SDV 2 mL 8 MG IVP (08:40)
== END 2020-08-17 07:43 | disposition home or self-care (01) ==
LOC: ONCMED 07:48
PROVIDERS: PCP Nurse Practitioner Family; Visit Provider Internal Medicine Medical Oncology
DX: E00-E89 Endocrine, nutritional and metabolic diseases (principal); D50.9 Iron deficiency anemia, unspecified
CPT/HCPCS: 96365; 96366; 96375; J1322; J2405; J7040; J7050

== ENCOUNTER 2020-08-24 06:21 | Outpatient (CLI) | payer MEDICARE, MEDICAID, SELFPAY ==
[2020-08-24] MEDS: diphenhydrAMINE 25 mg Capsule 50 MG PO (08:40)
[2020-08-24] MEDS: sodium chloride 0.9% 500 ML 100 ML IV (08:40)
[2020-08-24] MEDS: ondansetron 2 mg/ML SDV 2 mL 8 MG IVP (08:40)
[2020-08-24] MEDS: famotidine 20 mg Tablet PO (08:40)
[2020-08-24] MEDS: oxyCODONE 5 mg IR Tab/Cap PO (08:40)
[2020-08-24] MEDS: acetaminophen 325 mg Tablet 650 MG PO (08:40)
[2020-08-24 09:48] LABS: Blood Urea Nitrogen 11 mg/dL (6-20); Calcium 9.2 mg/dL (8.5-10.5); Carbon Dioxide 20 mmol/L (22-29); Chloride 105 mmol/L (98-107); Glomerular Filtration Rate 115.1 mL/min (90-130); Glucose 91 mg/dL (65-115); Osmolality Calculated 283 mOsm/kg (285-295); Sodium 137 mmol/L (136-145)
[2020-08-24 10:09] LABS: Anion Gap 15.6 (5-19); Potassium 3.6 mmol/L (3.5-5.1)
[2020-08-24] MEDS: LORazepam 0.5 mg Tablet PO (10:21)
== END 2020-08-24 06:22 | disposition home or self-care (01) ==
PROVIDERS: PCP Nurse Practitioner Family; Visit Provider Internal Medicine Medical Oncology
DX: E00-E89 Endocrine, nutritional and metabolic diseases (principal); E87.6 Hypokalemia; D50.9 Iron deficiency anemia, unspecified
CPT/HCPCS: 80048; 83735; 96365; 96366; 96375; J1322; J2405; J7040; J7050

== ENCOUNTER 2020-08-31 07:11 | Outpatient (CLI) | payer MEDICARE, MEDICAID, SELFPAY ==
[2020-08-31] MEDS: sodium chloride 0.9% 500 ML 100 ML IV (08:40)
[2020-08-31] MEDS: diphenhydrAMINE 25 mg Capsule 50 MG PO (08:40)
[2020-08-31] MEDS: acetaminophen 325 mg Tablet 650 MG PO (08:40)
[2020-08-31] MEDS: oxyCODONE 5 mg IR Tab/Cap PO (08:40)
[2020-08-31] MEDS: famotidine 20 mg Tablet PO (08:40)
[2020-08-31] MEDS: ondansetron 2 mg/ML SDV 2 mL 8 MG IVP (08:41)
[2020-08-31] MEDS: LORazepam 0.5 mg Tablet PO (09:05)
== END 2020-08-31 07:12 | disposition home or self-care (01) ==
LOC: ONCMED 07:13
PROVIDERS: PCP Nurse Practitioner Family; Visit Provider Internal Medicine Medical Oncology
DX: E00-E89 Endocrine, nutritional and metabolic diseases (principal); D50.9 Iron deficiency anemia, unspecified
CPT/HCPCS: 96365; 96366; 96375; J1322; J2405; J7040; J7050

== ENCOUNTER 2020-09-03 06:00 | Outpatient (RCR) | payer MEDICARE, MEDICAID, SELFPAY | END 2020-10-03 23:59 | disposition home or self-care (01) | LOC: SPT 06:00 | PROVIDERS: PCP Nurse Practitioner Family; Visit Provider Orthopaedic Surgery | DX: E76.219 Morquio mucopolysaccharidoses, unspecified (principal) | CPT/HCPCS: 97140 ==

== ENCOUNTER 2020-09-07 06:33 | Outpatient (CLI) | payer MEDICARE, MEDICAID, SELFPAY ==
[2020-09-07] MEDS: oxyCODONE 5 mg IR Tab/Cap PO (08:42)
[2020-09-07] MEDS: sodium chloride 0.9% 500 ML 75 ML IV (08:42)
[2020-09-07] MEDS: diphenhydrAMINE 25 mg Capsule 50 MG PO (08:42)
[2020-09-07] MEDS: acetaminophen 325 mg Tablet 650 MG PO (08:42)
[2020-09-07] MEDS: famotidine 20 mg Tablet PO (08:42)
[2020-09-07] MEDS: ondansetron 2 mg/ML SDV 2 mL 8 MG IVP (08:45)
[2020-09-07] MEDS: LORazepam 0.5 mg Tablet PO (09:16)
[2020-09-07] MEDS: HYDROcodone-acetaminophen 10-325 mg Tablet 1 TAB PO (12:55)
== END 2020-09-07 06:34 | disposition home or self-care (01) ==
LOC: ONCMED 06:35
PROVIDERS: PCP Nurse Practitioner Family; Visit Provider Nurse Practitioner
DX: E00-E89 Endocrine, nutritional and metabolic diseases (principal); D50.9 Iron deficiency anemia, unspecified; E87.6 Hypokalemia
CPT/HCPCS: 96365; 96366; 96375; J1322; J2405; J7040; J7050

== ENCOUNTER 2020-09-14 06:07 | Outpatient (CLI) | payer MEDICARE, MEDICAID, SELFPAY ==
[2020-09-14] MEDS: ondansetron 2 mg/ML SDV 2 mL 8 MG IVP (08:26)
[2020-09-14] MEDS: oxyCODONE 5 mg IR Tab/Cap PO (08:26)
[2020-09-14] MEDS: famotidine 20 mg Tablet PO (08:26)
[2020-09-14] MEDS: acetaminophen 325 mg Tablet 650 MG PO (08:28)
[2020-09-14] MEDS: diphenhydrAMINE 25 mg Capsule 50 MG PO (08:28)
[2020-09-14] MEDS: sodium chloride 0.9% 500 ML 100 ML IV (08:40)
[2020-09-14] MEDS: LORazepam 0.5 mg Tablet PO (10:30)
[2020-09-14] MEDS: HYDROcodone-acetaminophen 10-325 mg Tablet 1 TAB PO (13:00)
== END 2020-09-14 06:08 | disposition home or self-care (01) ==
LOC: ONCMED 06:11
PROVIDERS: PCP Nurse Practitioner Family; Visit Provider Internal Medicine Medical Oncology
DX: E00-E89 Endocrine, nutritional and metabolic diseases (principal); D50.9 Iron deficiency anemia, unspecified; E87.6 Hypokalemia; Z79.899 Other long term (current) drug therapy
CPT/HCPCS: 96365; 96366; 96375; J1322; J2405; J7040; J7050

== ENCOUNTER 2020-09-21 06:08 | Outpatient (CLI) | payer MEDICARE, MEDICAID, SELFPAY ==
[2020-09-21] MEDS: ondansetron 2 mg/ML SDV 2 mL 8 MG IVP (08:35)
[2020-09-21] MEDS: acetaminophen 325 mg Tablet 650 MG PO (08:35)
[2020-09-21] MEDS: sodium chloride 0.9% 500 ML 7 ML IV (08:35)
[2020-09-21] MEDS: famotidine 20 mg Tablet PO (08:35)
[2020-09-21] MEDS: diphenhydrAMINE 25 mg Capsule 50 MG PO (08:35)
[2020-09-21] MEDS: oxyCODONE 5 mg IR Tab/Cap PO (08:35)
[2020-09-21] MEDS: LORazepam 0.5 mg Tablet PO (10:23)
== END 2020-09-21 06:09 | disposition home or self-care (01) ==
LOC: ONCMED 06:10
PROVIDERS: PCP Nurse Practitioner Family; Visit Provider Internal Medicine Medical Oncology
DX: E00-E89 Endocrine, nutritional and metabolic diseases (principal); D50.9 Iron deficiency anemia, unspecified; E87.6 Hypokalemia; Z79.899 Other long term (current) drug therapy
CPT/HCPCS: 96365; 96366; 96375; J1322; J2405; J7040; J7050

== ENCOUNTER 2020-09-28 06:24 | Outpatient (CLI) | payer MEDICARE, MEDICAID, SELFPAY ==
[2020-09-28 08:49] VITALS: RESP 18; O2SAT 99
[2020-09-28] MEDS: famotidine 20 mg Tablet PO (08:49)
[2020-09-28] MEDS: acetaminophen 325 mg Tablet 650 MG PO (08:49)
[2020-09-28] MEDS: diphenhydrAMINE 25 mg Capsule 50 MG PO (08:49)
[2020-09-28] MEDS: oxyCODONE 5 mg IR Tab/Cap PO (08:49)
[2020-09-28] MEDS: ondansetron 2 mg/ML SDV 2 mL 8 MG IVP (08:52)
[2020-09-28] MEDS: LORazepam 0.5 mg Tablet PO ×2 (09:55→12:27)
== END 2020-09-28 06:25 | disposition home or self-care (01) ==
PROVIDERS: PCP Nurse Practitioner Family; Visit Provider Internal Medicine Medical Oncology
DX: E00-E89 Endocrine, nutritional and metabolic diseases (principal); D50.9 Iron deficiency anemia, unspecified; E87.6 Hypokalemia
CPT/HCPCS: 96365; 96366; 96375; J1322; J2405; J7050

== ENCOUNTER 2020-10-04 06:00 | Outpatient (RCR) | payer MEDICARE, MEDICAID, SELFPAY | END 2020-11-02 23:59 | disposition home or self-care (01) | LOC: SPT 06:00 | PROVIDERS: PCP Nurse Practitioner Family; Visit Provider Orthopaedic Surgery | DX: E76.219 Morquio mucopolysaccharidoses, unspecified (principal) | CPT/HCPCS: 97140 ==

== ENCOUNTER 2020-10-05 07:59 | Outpatient (CLI) | payer MEDICARE, MEDICAID, SELFPAY ==
[2020-10-05] MEDS: sodium chloride 0.9% 500 ML 75 ML IV (08:30)
[2020-10-05] MEDS: famotidine 20 mg Tablet PO (08:30)
[2020-10-05] MEDS: diphenhydrAMINE 25 mg Capsule 50 MG PO (08:30)
[2020-10-05] MEDS: acetaminophen 325 mg Tablet 650 MG PO (08:30)
[2020-10-05] MEDS: oxyCODONE 5 mg IR Tab/Cap PO (08:30)
[2020-10-05] MEDS: ondansetron 2 mg/ML SDV 2 mL 8 MG IVP (08:30)
== END 2020-10-05 08:00 | disposition home or self-care (01) ==
PROVIDERS: PCP Nurse Practitioner Family; Visit Provider Internal Medicine Medical Oncology
DX: E00-E89 Endocrine, nutritional and metabolic diseases (principal); D50.9 Iron deficiency anemia, unspecified; Z79.899 Other long term (current) drug therapy; E76.219 Morquio mucopolysaccharidoses, unspecified
CPT/HCPCS: 96365; 96366; 96375; 97140; J1322; J2405; J7040; J7050

== ENCOUNTER 2020-10-12 06:34 | Outpatient (CLI) | payer MEDICARE, MEDICAID, SELFPAY ==
[2020-10-12 08:18] VITALS: RESP 17; O2SAT 98
[2020-10-12] MEDS: sodium chloride 0.9% 500 ML 75 ML IV (08:18)
[2020-10-12] MEDS: oxyCODONE 5 mg IR Tab/Cap PO (08:18)
[2020-10-12] MEDS: acetaminophen 325 mg Tablet 650 MG PO (08:18)
[2020-10-12] MEDS: diphenhydrAMINE 25 mg Capsule 50 MG PO (08:18)
[2020-10-12] MEDS: famotidine 20 mg Tablet PO (08:18)
[2020-10-12] MEDS: ondansetron 2 mg/ML SDV 2 mL 8 MG IVP (08:20)
== END 2020-10-12 06:35 | disposition home or self-care (01) ==
LOC: ONCMED 06:36
PROVIDERS: PCP Nurse Practitioner Family; Visit Provider Nurse Practitioner
DX: E00-E89 Endocrine, nutritional and metabolic diseases (principal); D50.9 Iron deficiency anemia, unspecified; Z79.899 Other long term (current) drug therapy
CPT/HCPCS: 96365; 96366; 96375; J1322; J2405; J7040; J7050

== ENCOUNTER 2020-10-19 06:20 | Outpatient (CLI) | payer MEDICARE, MEDICAID, SELFPAY ==
[2020-10-19 09:21] VITALS: RESP 18; O2SAT 99
[2020-10-19] MEDS: diphenhydrAMINE 25 mg Capsule 50 MG PO (09:21)
[2020-10-19] MEDS: oxyCODONE 5 mg IR Tab/Cap PO (09:21)
[2020-10-19] MEDS: acetaminophen 325 mg Tablet 650 MG PO (09:21)
[2020-10-19] MEDS: LORazepam 0.5 mg Tablet PO (09:21)
[2020-10-19] MEDS: famotidine 20 mg Tablet PO (09:21)
[2020-10-19] MEDS: ondansetron 2 mg/ML SDV 2 mL 8 MG IVP (09:26)
[2020-10-19] MEDS: sodium chloride 0.9% 500 ML 75 ML IV (09:26)
[2020-10-19 09:32] LABS: Basophils % 0.4 %; Eosinophils # 0.3 10^3/uL (0.0-0.8); Eosinophils % 3.1 %; Hematocrit 41.5 % (37.0-47.0); Hemoglobin 13.7 g/dL (11.5-15.3); Lymphocytes # 2.6 10^3/uL (0.8-4.8); Lymphocytes % 28.8 %; Mean Corpuscular Volume 90.8 fL (81-99); Mean Platelet Volume 11.9 fL (7.4-10.4); Monocytes # 0.6 10^3/uL (0.2-0.9); Neutrophils # 5.36 10^3/uL (1.8-7.7); Neutrophils % 60.3 %; Nucleated Red Blood Cells % 0 %; Platelet Count 274 10^3/cmm (130-400); Red Blood Count 4.57 10^6/uL (4.1-5.3); Red Cell Distribution Width 13.5 % (12.1-15.1); White Blood Count 8.9 10^3/uL (4.0-10.0)
[2020-10-19 09:56] LABS: Alanine Aminotransferase 13 U/L (0-33); Albumin Level 4.3 g/dL (3.5-5.2); Alkaline Phosphatase 106 IU/L (35-105); Anion Gap 14.1 (5-19); Aspartate Amino Transferase 18 U/L (0-32); Blood Urea Nitrogen 11 mg/dL (6-20); Calcium 9.1 mg/dL (8.5-10.5); Carbon Dioxide 23 mmol/L (22-29); Chloride 108 mmol/L (98-107); Globulin 2.6 g/dL (1.3-4.6); Glomerular Filtration Rate 142.1 mL/min (90-130); Glucose 89 mg/dL (65-115); Magnesium 1.8 mg/dL (1.7-2.3); Osmolality Calculated 291 mOsm/kg (285-295); Potassium 4.1 mmol/L (3.5-5.1); Sodium 141 mmol/L (136-145); Total Bilirubin 0.2 mg/dL (0.15-1.2); Total Protein 6.9 g/dL (6.6-8.7)
--- NOTE | 2020-11-07 16:55 | ONC FU_ITS ---
Danie Souza Patient Note Patient: Elisa Campbell Unit #: [id number]: [id number] Dictated By: Ajit PinoDate of Visit: Oct 19, 2020 Onc MED Follow-Up/Prog Note Chief Complaint: Mucopolysaccharidosis type IV-A. History of Present Illness: Ms Campbell is a 34 year-old woman with mucopolysaccharidosis type IV-A (Morquio type A ). She had been seen by a explosive operator supervisor and by a genetic counselor at the [facility] during a hospital admission in February 2014. Subsequent studies did confirm a diagnosis of Morquio type A mucoploysaccharidosis. It was suggested at that time that she may want to consider the possibility of initiating a trial of therapy with Vimizin. After receiving further information about the medication, she did opt for treatment, which she started in July 2014. For convenience she requested to receive her treatment here, as it required weekly administration and she felt it would be difficult for her to travel to [place] for it. Subjectively, she had some improvement in her musculoskeletal pain with the treatment, and she also had improvement in her performance status. She presented to the emergency room at [facility] on 06/18/2016 with vomiting, abdominal pain, and diarrhea. She was transferred to [facility] in [place] and admitted to the hospital. Her GI evaluation apparently was unrevealing. She was discharged home on 06/24/2016 on Zofran ODT 8 mg and pantoprazole 40 mg daily. She has had follow-up with the celery cutter, and he apparently felt that the problem was related to the underlying gastroparesis. During her further follow-up she required required treatment for hypokalemia on an intermittent basis. She continued her weekly infusions of elosulfase genoveva. In April 2019 she began to complain of abdominal pain. Her CT abdomen/pelvis on 04/20/2019 showed no acute findings. On 04/24/2019 she presented to the emergency room with persistent right upper quadrant pain. Gallbladder ultrasound was normal. Her liver enzymes, though, were markedly elevated with SGOT 3530 U/L and SGPT 3306 U/L. Her total bilirubin was normal at 0.4 mg/dL and the alkaline phosphatase was just slightly elevated at 138/105 IU/L. Her viral hepatitis serology was negative. She was transferred to the [facility] for admission, and she improved with conservative management. A specific cause for the illness was ever determined. During the course of that hospitalization, though, she apparently was found to have evidence of pulmonary embolism, and she did start anticoagulation with apixaban. Following discharge she was able to restart her weekly elosulfase genoveva infusions. She remains on weekly treatments and tolerates them well. Her medical illnesses, in addition to Morquio type A mucopolysaccharidosis , include hypertension, mild asthma, GERD, gastroparesis, and chronic migraine. She has degenerative arthritis, and she also has anxiety/depression. She underwent left total hip arthroplasty in December 2015 and right total hip arthroplasty in March 2016. She is a nonsmoker. INTERIM HISTORY: Ms Campbell is here today for a scheduled followup visit. She has no new concerns today other than left ear pain. She states that she has had some left ear pain for the last couple of days. She has not noted any fever or chills. She is had no drainage. She denies any sinus congestion or sinus drainage. She has had no sore throat or swollen lymph nodes that she is aware of. She did not take her blood pressure medication today and her blood pressure is noted to be 154/114. She states she generally takes it every other day. She does have a tendency to be hypotensive at times and does regulate her own blood pressure medication however she states she did forget to take it today and maybe for the last couple of days. She denies any fever or chills. She denies any new shortness of breath or cough. She is had no hemoptysis. She has gastroparesis which bothers her at times but states is not been any more than her normal which is about every 2 to 3 weeks sometimes longer depending on what she eats. She denies any problems with her bladder function. She denies any urinary frequency or hesitancy. She has chronic musculoskeletal pain which she states is normal for me . Her pain is controlled with oxycodone. She does receive Botox injections for chronic migraines and tolerates these well. She denies any vision changes. She has had no increase in her headaches and states that she feels they are well controlled. She denies any rashes or skin changes. She states her energy is about the same which she describes as marginal. She can do all her ADLs without assistance. She does get out of the house and do things with friends and family and tolerates this well. Her ECOG is 1. Past Medical History: Anxiety and depression Gastroesophageal reflux disease Gastroparesis Hypertension Migraines Mild asthma Morquio type A Past Surgical History: Flu vaccine in 2019 Introduction of influenza vaccine into muscle, perc approach in 2018 Flu Vaccine in 2017 Flu Vaccine in 2016 - per pt. Right subclavian venous access device-Dr Beverley More ([facility]) in 2014 EGD in 2013 Spinal fusion in 2002 Spinal fusion in 2000 Leg surgery in 1998 Allergies: ADHESIVE, AZITHROMYCIN, COMPAZINE, GABAPENTIN, METOCLOPRAMIDE, and TraMADol HCl. Medications: Albuterol Sulfate HFA Aerosol, solution Inhalation PRN Ativan (1 mg) Tablet Oral b.i.d. PRN Benadryl 1 Capsule (of 25 mg) Oral q 6 hours PRN Botox Injection Take as Directed Coreg 1 Tablet (of 25 mg) Oral daily Depo-Provera 150 mg (of 400 mg/mL) Intramuscular q 90 days Effexor XR 1 Capsule (of 150 mg) Capsule SR 24 HR Oral daily Eliquis 1 Tablet (of 2.5 mg) Oral daily Erythromycin Base 1 Capsule (of 250 mg) Capsule Delayed Release Particles Oral four times a day hydroCHLOROthiazide 1 Tablet (of 25 mg) Oral daily Lasix 1 (5 mg) Tablet Oral daily PRN Lisinopril 2.5 Tablet (of 2.5 mg) Oral daily PRN Marinol 1 (2.5 mg) Capsule Oral b.i.d. PRN Mobic 1 Tablet (of 7.5 mg) Oral b.i.d. Ondansetron HCl 1 (4 mg) Tablet Oral q 8 hours PRN Pepcid 1 Tablet (of 40 mg) Oral daily Potassium Chloride Laura ER 1 (40 meq) Tablet, controlled release Oral daily TiZANidine HCl 1 (4 mg) Tablet Oral t.i.d. PRN Family History: Ms. Campbell's mother is alive: Right mandibular carcinoma July 2020. Ms. Campbell's father is alive. Both parents are living, father at age 59 and mother at age 57. Her mother has cardiomyopathy. There is diabetes on her father's side of the family. Her maternal great grandmother with breast cancer. One brother is in good health. Social History: Ms. Campbell is single and she is a disabled. Ms. Campbell has never smoked. She has no history of drinking. Ms. Campbell reports the following support systems: lives with spouse, significant other, family, or friends, lives in own house, supportive family/friends willing to assist with needs, and adequate transportation available for expected visits. Her diet consists of regular meals. She indicates her activity level as: daily activities. Review Of Symptoms: <See Above> Vital Signs: Performed on Oct 19, 2020 10:57 Height - 47.00 in Weight - 105.6 lbs (LOW) BSA - 1.19 sq.m BMI - 33.61 (HIGH) Temperature - 97.5 F (LOW) Pulse - 79 /min Respiration - 18 /min BP - 154/114 mm(hg) (HIGH) O2 Sat - 90 % (LOW) Pain - 0,1 - No physically strenuous activity, but ambulatory and able to carry out light or sedentary work (e.g. office work, light house work). (ECOG) Physical Examination: Constitutional Alert, oriented, no acute distress. Skin pink, warm and dry. Head Normocephalic; atraumatic. Eyes Conjunctivae and sclerae are clear and without icterus. Pupils are reactive and equal. ENMT Her left ear does show a bright red somewhat swollen canal but her TM is clear. There is no exudate or lesions. Sinuses are nontender. No oral exudates, ulcers, masses, thrush or mucositis. Oropharynx clear. Tongue normal. Neck Supple without masses or thyromegaly. No jugular venous distension. Hematologic/Lymphatic No petechiae or purpura. Respiratory Lungs are clear to auscultation without rhonchi or wheezing. Cardiovascular Regular rate and rhythm of heart without murmurs,clicks, gallops or rubs. Chest Right subclavian venous access device unremarkable. Abdomen Non-tender, non-distended, no masses, ascites. Good bowel sounds noted in all quads. No guarding or rebound tenderness. No pulsatile masses. Back/Spine Non-tender to palpation. Extremities Short stature with slight contractures noted in feet and hands, no cyanosis, clubbing or edema. bilaterally. Musculoskeletal No tenderness or swelling, normal range of motion without obvious weakness. Integumentary No rashes or lesions. Neurologic No sensory or motor deficits, normal cerebellar function, normal gait-for patient. It is altered slightly due to small stature and slight contractures. Psychiatric Alert and oriented times three. Coherent speech. Verbalizes understanding of our discussions today. Laboratory:Test performed on Oct 19, 2020 09:09 Magnesium 1.8 mg/dL Sodium 141 mmol/L Potassium 4.1 mmol/L Chloride 108 mmol/L CO2 23 mmol/L Anion Gap 14.1 BUN 11 mg/dL Creatinine 0.5 mg/dL Cr Clearance (Est) 126.2900 mL/min eGFR 142.1 mL/min Glucose 89 mg/dL Osmolality - Calculated 291 mOsm/kg Calcium 9.1 mg/dL Protein, Total 6.9 g/dL Albumin 4.3 g/dL Globulin 2.6 g/dL Bilirubin, Total 0.2 mg/dL ALT (SGPT) 13 U/L AST (SGOT) 18 U/L Alkaline Phosphatase 106 IU/L WBC 8.9 10 3/uL RBC 4.57 10 6/uL HGB 13.7 g/dL HCT 41.5 % MCV 90.8 fL MCH 30.0 pg MCHC 33.0 g/dL RDW 13.5 % Platelet Count 274 10 3/cmm MPV 11.9 fL Neutrophils 5.36 10 3/uL Lymphocytes 2.6 10 3/uL Monocytes 0.6 10 3/uL Eosinophils 0.3 10 3/uL Basophils 0.0 10 3/uL Neutrophil % 60.3 % Lymphocyte % 28.8 % Monocyte % 7.0 % Eosinophil % 3.1 % Basophils % 0.4 % NRBC % 0 % Test performed on Aug 03, 2020 08:13 TSH 1.10 uIU/mL Impression: 1. Morquio type A (mucopolysaccharidosis IV-A). 2. She has chronic musculoskeletal pain. 3. She has recurrent episodes of hypokalemia. 4. She has required treatment for iron deficiency anemia. 5. Hypertension. 6. Mild asthma. 7. GERD. 8. Gastroparesis. 9. Degenerative arthritis. 10. Chronic migraine. 11. Chronic anxiety/depression. Plan/Problems Addressed at this Visit: 1. Morquio type A (mucopolysaccharidosis IV-A). She began treatment with elosulfase genoveva in July 2014. She has tolerated the treatment well, and she had noted improvement in her muscle pain and in her energy/activity tolerance. Overall she had noticed a big difference with the treatment. Her clinical status at this point appears stable. She has had a recent follow-up visit with her explosive operator supervisor. A. Proceed with elosulfase genoveva 2 mg/kg by IV infusion weekly. B. Today's labs reviewed in detail and discussed with Ms. Campbell and a copy was given to her. WBC 8.9, hemoglobin 13.7, hematocrit 41.5, platelets 274,000, ANC is 5360. Potassium 4.1 random glucose 89 creatinine 0.5 her LFTs are normal. Magnesium is normal at 1.8. Her weight is 105.6 which is stable. C. I did send a prescription for Augmentin 875 1 twice daily for 7 days for left ear infection. She states this is worked well for her in the past. She will let us know if her ear is not improving at her infusion next week or sooner if symptoms worsen. 2. She has chronic musculoskeletal pain. A. It has been managed adequately with hydrocodone/APAP. She is requesting a refill per Dr. Ramirez as the pain clinic only does injections . 3. She has had intermittent episodes of hypokalemia. A. Her potassium is normal today. She was encouraged to continue her current potassium supplementation. 4. Hypertension. A. She was advised she may try increasing her lisinopril to 5 mg daily as she is hypertensive today with a blood pressure of 154/114. B. She does have tendency to low blood pressures at times so she will monitor them carefully and will adjust her blood pressure medications accordingly. 5. Follow-up plan A. She will continue her weekly elosulfase infusions as above. B. We will plan for routine follow-up in 4 months at which time she will have CBC CMP. C. She may have interim chemistries as indicated as she has had trouble with hypokalemia in the past. D. Ms. Barros was encouraged to let us know in the interim if questions or problems arise. Signed By: Ajit Pino-, [facility] Leon Ramirez MD <<Signature on File>>
== END 2020-10-19 06:21 | disposition home or self-care (01) ==
LOC: ONCMED 06:22
PROVIDERS: PCP Nurse Practitioner Family; Visit Provider Nurse Practitioner
DX: E00-E89 Endocrine, nutritional and metabolic diseases (principal); D50.9 Iron deficiency anemia, unspecified; Z79.899 Other long term (current) drug therapy
CPT/HCPCS: 80053; 83735; 85025; 96365; 96366; 96375; 99214; J1322; J2405; J7040; J7050

== ENCOUNTER 2020-10-26 06:43 | Outpatient (CLI) | payer MEDICARE, MEDICAID, SELFPAY ==
[2020-10-26] MEDS: acetaminophen 325 mg Tablet 650 MG PO (08:40)
[2020-10-26] MEDS: famotidine 20 mg Tablet PO (08:40)
[2020-10-26] MEDS: diphenhydrAMINE 25 mg Capsule 50 MG PO (08:40)
[2020-10-26] MEDS: ondansetron 2 mg/ML SDV 2 mL 8 MG IVP (08:40)
[2020-10-26] MEDS: sodium chloride 0.9% 250 ML 75 ML IV (08:40)
[2020-10-26 10:12] VITALS: RESP 20
[2020-10-26] MEDS: oxyCODONE 5 mg IR Tab/Cap PO (10:12)
== END 2020-10-26 06:44 | disposition home or self-care (01) ==
LOC: ONCMED 06:45
PROVIDERS: PCP Nurse Practitioner Family; Visit Provider Internal Medicine Medical Oncology
DX: E00-E89 Endocrine, nutritional and metabolic diseases (principal); D50.9 Iron deficiency anemia, unspecified; Z79.899 Other long term (current) drug therapy
CPT/HCPCS: 96365; 96366; 96375; J1322; J2405; J7050

== ENCOUNTER → 2020-10-28 08:33 | Outpatient (BNVA) | payer MEDICARE, MEDICAID, SELFPAY | PROVIDERS: PCP Nurse Practitioner Family; Visit Provider Specialist | DX: G43.711 Chronic migraine without aura, intractable, with status migrainosus (principal); F98.8 Other specified behavioral and emotional disorders with onset usually occurring in childhood and adolescence; Z71.89 Other specified counseling | CPT/HCPCS: 64615; 99213; J0585 ==

== ENCOUNTER 2020-11-02 06:31 | Outpatient (CLI) | payer MEDICARE, MEDICAID, SELFPAY ==
[2020-11-02 08:18] VITALS: RESP 18; O2SAT 99
[2020-11-02] MEDS: diphenhydrAMINE 25 mg Capsule 50 MG PO (08:18)
[2020-11-02] MEDS: acetaminophen 325 mg Tablet 650 MG PO (08:18)
[2020-11-02] MEDS: oxyCODONE 5 mg IR Tab/Cap PO (08:18)
[2020-11-02] MEDS: famotidine 20 mg Tablet PO (08:18)
[2020-11-02] MEDS: ondansetron 2 mg/ML SDV 2 mL 8 MG IVP (08:18)
[2020-11-02] MEDS: sodium chloride 0.9% 500 ML 75 ML IV (08:20)
--- NOTE | 2020-11-02 08:52 | XR_ITS ---
WS: [id number] Left femur and thigh, AP and lateral views, 11/02/2020 Clinical Data: MUCOPOLYSACCHARIDOSIS TYPE IV-A/SEVERE HIP PAIN Comparison: AP pelvis, 03/15/2017. Findings: There is a left hip arthroplasty. No fractures or dislocations are seen. There is osteoarthritis of t he left knee. The soft tissues are unremarkable. XR/XR femur LT min 2V* [id number] Impression: 1. Left hip arthroplasty. 2. Osteoarthritis of the left knee.
--- NOTE | 2020-11-02 08:52 | XR_ITS ---
WS: [id number] Right hip, 2 views, 11/02/2020 Clinical Data: MUCOPOLYSACCHARIDOSIS TYPE IV-A-SEVERE HIP PAIN Comparison: Pelvis, 03/15/2017. Findings: The right hip arthroplasty is in good position. No loosening is seen. There are no fractures or dislo cations. There is a screw fragment in the right iliac bone unchanged. XR/XR hip RT 2-3V wo/w pel* [id number] Impression: Right hip arthroplasty. Tonnis classification: N/A
--- NOTE | 2020-11-02 08:52 | XR_ITS ---
WS: [id number] Left hip, 2 views, AP pelvis, 11/02/2020 Clinical Data: MUCOPOLYSACCHARIDOSIS TYPE IV-A/SEVERE HIP PAIN Comparison: AP pelvis, 03/15/2017. Findings: Bilateral hip arthroplasties are noted. No loosening is seen. No fractures or dislocations are presen t. There is a screw fragment in the right ilium unchanged. The soft tissues are not remarkable. XR/XR hip LT 2-3V wo/w pel* [id number] Impression: Bilateral hip arthroplasties unchanged. Tonnis classification: NA
--- NOTE | 2020-11-02 08:52 | XR_ITS ---
WS: [id number] Right femur and thigh, AP and lateral views, 11/02/2020 Clinical Data: MUCOPOLYSACCHARIDOSIS TYPE IV-A/SEVERE HIP PAIN Comparison: AP pelvis, 03/15/2017. Findings: There is a right hip arthroplasty unchanged. No loosening is seen. There are no new fractures. The distal femur shows osteoarthritic changes aroun d the knee. The soft tissues are normal. XR/XR femur RT min 2V* [id number] Impression: No change in right hip arthroplasty.
== END 2020-11-02 06:32 | disposition home or self-care (01) ==
LOC: ONCMED 06:34
PROVIDERS: PCP Nurse Practitioner Family; Visit Provider Internal Medicine Medical Oncology
DX: E00-E89 Endocrine, nutritional and metabolic diseases (principal); D50.9 Iron deficiency anemia, unspecified; Z79.899 Other long term (current) drug therapy
CPT/HCPCS: 73502; 73552; 96365; 96366; 96375; J1322; J2405; J7040; J7050

== ENCOUNTER 2020-11-03 06:00 | Outpatient (RCR) | payer MEDICARE, MEDICAID, SELFPAY | END 2020-12-03 23:59 | disposition home or self-care (01) | LOC: SPT 06:00 | PROVIDERS: PCP Nurse Practitioner Family; Visit Provider Orthopaedic Surgery | DX: E76.219 Morquio mucopolysaccharidoses, unspecified (principal) | CPT/HCPCS: 97124 ==

== ENCOUNTER 2020-11-09 06:07 | Outpatient (CLI) | payer MEDICARE, MEDICAID, SELFPAY ==
[2020-11-09] MEDS: sodium chloride 0.9% 500 ML 100 ML IV (08:55)
[2020-11-09] MEDS: oxyCODONE 5 mg IR Tab/Cap PO ×2 (08:55→13:27)
[2020-11-09] MEDS: diphenhydrAMINE 25 mg Capsule 50 MG PO (08:55)
[2020-11-09] MEDS: acetaminophen 325 mg Tablet 650 MG PO (08:55)
[2020-11-09] MEDS: ondansetron 2 mg/ML SDV 2 mL 8 MG IVP (08:55)
[2020-11-09] MEDS: famotidine 20 mg Tablet PO (08:55)
[2020-11-09] MEDS: LORazepam 0.5 mg Tablet PO (09:40)
== END 2020-11-09 06:08 | disposition home or self-care (01) ==
LOC: ONCMED 06:14
PROVIDERS: PCP Nurse Practitioner Family; Visit Provider Internal Medicine Medical Oncology
DX: E00-E89 Endocrine, nutritional and metabolic diseases (principal); D50.9 Iron deficiency anemia, unspecified; Z79.899 Other long term (current) drug therapy
CPT/HCPCS: 96365; 96366; 96375; J1322; J2405; J7040; J7050

== ENCOUNTER 2020-11-16 06:37 | Outpatient (CLI) | payer MEDICARE, MEDICAID, SELFPAY ==
[2020-11-16] MEDS: acetaminophen 325 mg Tablet 650 MG PO (09:30)
[2020-11-16] MEDS: LORazepam 0.5 mg Tablet PO (09:30)
[2020-11-16] MEDS: diphenhydrAMINE 25 mg Capsule 50 MG PO (09:30)
[2020-11-16] MEDS: famotidine 20 mg Tablet PO (10:32)
[2020-11-16] MEDS: ondansetron 2 mg/ML SDV 2 mL 8 MG IVP (10:32)
[2020-11-16] MEDS: sodium chloride 0.9% 500 ML 150 ML IV (10:32)
[2020-11-16] MEDS: HYDROcodone-acetaminophen 10-325 mg Tablet 1 TAB PO ×2 (10:33→14:30)
== END 2020-11-16 06:38 | disposition home or self-care (01) ==
LOC: ONCMED 06:39
PROVIDERS: PCP Nurse Practitioner Family; Visit Provider Internal Medicine Medical Oncology
DX: E00-E89 Endocrine, nutritional and metabolic diseases (principal); D50.9 Iron deficiency anemia, unspecified; Z79.899 Other long term (current) drug therapy
CPT/HCPCS: 96365; 96366; 96375; J1322; J2405; J7040; J7050

== ENCOUNTER 2020-12-07 06:14 | Outpatient (CLI) | payer MEDICARE, MEDICAID, SELFPAY ==
[2020-12-07] MEDS: HYDROcodone-acetaminophen 10-325 mg Tablet 1 TAB PO ×2 (08:38→13:12)
[2020-12-07] MEDS: sodium chloride 0.9% 500 ML 100 ML IV (08:38)
[2020-12-07] MEDS: ondansetron 2 mg/ML SDV 2 mL 8 MG IVP (08:38)
[2020-12-07] MEDS: famotidine 20 mg Tablet PO (08:38)
[2020-12-07] MEDS: diphenhydrAMINE 25 mg Capsule 50 MG PO (08:38)
[2020-12-07] MEDS: LORazepam 0.5 mg Tablet PO (09:59)
== END 2020-12-07 06:15 | disposition home or self-care (01) ==
PROVIDERS: PCP Nurse Practitioner Family; Visit Provider Internal Medicine Medical Oncology
DX: E00-E89 Endocrine, nutritional and metabolic diseases (principal); D50.9 Iron deficiency anemia, unspecified; Z79.899 Other long term (current) drug therapy
CPT/HCPCS: 96365; 96366; 96375; J1322; J2405; J7040; J7050

== ENCOUNTER 2020-12-14 06:24 | Outpatient (CLI) | payer MEDICARE, MEDICAID, SELFPAY ==
[2020-12-14] MEDS: acetaminophen 325 mg Tablet 650 MG PO (08:45)
[2020-12-14] MEDS: LORazepam 0.5 mg Tablet PO (08:45)
[2020-12-14] MEDS: diphenhydrAMINE 25 mg Capsule 50 MG PO (08:45)
[2020-12-14] MEDS: HYDROcodone-acetaminophen 10-325 mg Tablet 1 TAB PO (08:45)
[2020-12-14] MEDS: famotidine 20 mg Tablet PO (08:45)
[2020-12-14] MEDS: ondansetron 2 mg/ML SDV 2 mL 8 MG IVP (08:45)
[2020-12-14] MEDS: sodium chloride 0.9% 500 ML 75 ML IV (09:10)
== END 2020-12-14 06:25 | disposition home or self-care (01) ==
LOC: ONCMED 06:26
PROVIDERS: PCP Nurse Practitioner Family; Visit Provider Nurse Practitioner
DX: E00-E89 Endocrine, nutritional and metabolic diseases (principal); D50.9 Iron deficiency anemia, unspecified; Z79.899 Other long term (current) drug therapy
CPT/HCPCS: 96365; 96366; 96375; J1322; J2405; J7040; J7050

== ENCOUNTER 2020-12-21 06:14 | Outpatient (CLI) | payer MEDICARE, MEDICAID, SELFPAY ==
[2020-12-21] MEDS: famotidine 20 mg Tablet PO (09:00)
[2020-12-21] MEDS: sodium chloride 0.9% 500 ML 75 ML IV (09:00)
[2020-12-21] MEDS: diphenhydrAMINE 25 mg Capsule 50 MG PO (09:00)
[2020-12-21] MEDS: HYDROcodone-acetaminophen 10-325 mg Tablet 1 TAB PO (09:00)
[2020-12-21] MEDS: acetaminophen 325 mg Tablet 650 MG PO (09:00)
[2020-12-21] MEDS: ondansetron 2 mg/ML SDV 2 mL 8 MG IVP (09:03)
== END 2020-12-21 06:15 | disposition home or self-care (01) ==
LOC: ONCMED 06:16
PROVIDERS: PCP Nurse Practitioner Family; Visit Provider Internal Medicine Medical Oncology
DX: E00-E89 Endocrine, nutritional and metabolic diseases (principal); D50.9 Iron deficiency anemia, unspecified; Z79.899 Other long term (current) drug therapy
CPT/HCPCS: 96365; 96366; 96375; J1322; J2405; J7040; J7050

== ENCOUNTER 2020-12-28 06:19 | Outpatient (CLI) | payer MEDICARE, MEDICAID, SELFPAY ==
[2020-12-28] MEDS: famotidine 20 mg Tablet PO (08:25)
[2020-12-28] MEDS: acetaminophen 325 mg Tablet 650 MG PO (08:25)
[2020-12-28] MEDS: HYDROcodone-acetaminophen 10-325 mg Tablet 1 TAB PO ×2 (08:25→13:15)
[2020-12-28] MEDS: diphenhydrAMINE 25 mg Capsule 50 MG PO (08:25)
[2020-12-28] MEDS: sodium chloride 0.9% 500 ML 75 ML IV (08:30)
[2020-12-28] MEDS: ondansetron 2 mg/ML SDV 2 mL 8 MG IVP (08:30)
[2020-12-28] MEDS: LORazepam 0.5 mg Tablet PO (10:35)
== END 2020-12-28 06:20 | disposition home or self-care (01) ==
LOC: ONCMED 06:21
PROVIDERS: PCP Nurse Practitioner Family; Visit Provider Internal Medicine Medical Oncology
DX: E00-E89 Endocrine, nutritional and metabolic diseases (principal); D50.9 Iron deficiency anemia, unspecified; Z79.899 Other long term (current) drug therapy
CPT/HCPCS: 96365; 96366; 96375; J1322; J2405; J7040; J7050

== ENCOUNTER 2021-01-04 05:59 | Outpatient (CLI) | payer MEDICARE, MEDICAID, SELFPAY ==
[2021-01-04] MEDS: ondansetron 2 mg/ML SDV 2 mL 8 MG IVP (08:30)
[2021-01-04] MEDS: sodium chloride 0.9% 500 ML 75 ML IV (08:30)
[2021-01-04] MEDS: diphenhydrAMINE 25 mg Capsule 50 MG PO (08:35)
[2021-01-04] MEDS: acetaminophen 325 mg Tablet 650 MG PO (08:35)
[2021-01-04] MEDS: LORazepam 0.5 mg Tablet PO ×2 (08:35→10:25)
[2021-01-04] MEDS: HYDROcodone-acetaminophen 10-325 mg Tablet 1 TAB PO (08:35)
[2021-01-04] MEDS: OLANZapine 5 mg TABLET PO (11:07)
[2021-01-04] MEDS: famotidine 20 mg/2 mL INJ IVP (11:07)
== END 2021-01-04 06:00 | disposition home or self-care (01) ==
LOC: ONCMED 06:01
PROVIDERS: PCP Nurse Practitioner Family; Visit Provider Internal Medicine Medical Oncology
DX: E00-E89 Endocrine, nutritional and metabolic diseases (principal); E87.6 Hypokalemia; D50.9 Iron deficiency anemia, unspecified; Z79.899 Other long term (current) drug therapy
CPT/HCPCS: 96365; 96366; 96375; J1322; J2405; J3490; J7040; J7050

== ENCOUNTER 2021-01-04 06:00 | Outpatient (RCR) | payer MEDICARE, MEDICAID, SELFPAY | END 2021-02-02 23:59 | disposition home or self-care (01) | LOC: SPT 06:00 | PROVIDERS: PCP Nurse Practitioner Family; Visit Provider Orthopaedic Surgery | DX: E76.219 Morquio mucopolysaccharidoses, unspecified (principal) | CPT/HCPCS: 97140 ==

== ENCOUNTER 2021-01-11 06:11 | Outpatient (CLI) | payer MEDICARE, MEDICAID, SELFPAY ==
[2021-01-11] MEDS: famotidine 20 mg/2 mL INJ IVP (08:35)
[2021-01-11] MEDS: sodium chloride 0.9% 500 ML 75 ML IV (08:35)
[2021-01-11] MEDS: ondansetron 2 mg/ML SDV 2 mL 8 MG IVP ×2 (08:37)
[2021-01-11] MEDS: acetaminophen 325 mg Tablet 650 MG PO (08:40)
[2021-01-11] MEDS: diphenhydrAMINE 25 mg Capsule 50 MG PO (08:40)
[2021-01-11] MEDS: HYDROcodone-acetaminophen 10-325 mg Tablet 1 TAB PO ×2 (08:45→13:00)
[2021-01-11] MEDS: LORazepam 0.5 mg Tablet PO (10:18)
[2021-01-11] MEDS: famotidine 20 mg Tablet PO (13:02)
== END 2021-01-11 06:12 | disposition home or self-care (01) ==
LOC: ONCMED 06:12
PROVIDERS: PCP Nurse Practitioner Family; Visit Provider Internal Medicine Medical Oncology
DX: E00-E89 Endocrine, nutritional and metabolic diseases (principal); D50.9 Iron deficiency anemia, unspecified; E87.6 Hypokalemia; Z79.899 Other long term (current) drug therapy
CPT/HCPCS: 96365; 96366; 96375; J1322; J2405; J3490; J7040; J7050

== ENCOUNTER 2021-01-18 06:03 | Outpatient (CLI) | payer MEDICARE, MEDICAID, SELFPAY ==
[2021-01-18] MEDS: ondansetron 2 mg/ML SDV 2 mL 8 MG IVP (08:00)
[2021-01-18] MEDS: diphenhydrAMINE 25 mg Capsule 50 MG PO (08:32)
[2021-01-18] MEDS: HYDROcodone-acetaminophen 10-325 mg Tablet 1 TAB PO (08:32)
[2021-01-18] MEDS: famotidine 20 mg Tablet PO (08:32)
[2021-01-18] MEDS: acetaminophen 325 mg Tablet 650 MG PO (08:32)
[2021-01-18] MEDS: sodium chloride 0.9% 500 ML 75 ML IV (08:45)
[2021-01-18] MEDS: LORazepam 0.5 mg Tablet PO (10:20)
== END 2021-01-18 06:04 | disposition home or self-care (01) ==
LOC: ONCMED 06:04
PROVIDERS: PCP Nurse Practitioner Family; Visit Provider Internal Medicine Medical Oncology
DX: E00-E89 Endocrine, nutritional and metabolic diseases (principal); D50.9 Iron deficiency anemia, unspecified; E87.6 Hypokalemia; Z79.899 Other long term (current) drug therapy
CPT/HCPCS: 96365; 96366; 96375; J1322; J2405; J7040; J7050

== ENCOUNTER 2021-01-26 07:55 | Outpatient (CLI) | payer MEDICARE, MEDICAID, SELFPAY ==
[2021-01-26] MEDS: HYDROcodone-acetaminophen 10-325 mg Tablet 1 TAB PO ×2 (08:30→12:45)
[2021-01-26] MEDS: acetaminophen 325 mg Tablet 650 MG PO (08:30)
[2021-01-26] MEDS: famotidine 20 mg Tablet PO (08:30)
[2021-01-26] MEDS: diphenhydrAMINE 25 mg Capsule 50 MG PO (08:30)
[2021-01-26] MEDS: sodium chloride 0.9% 500 ML 75 ML IV (08:30)
[2021-01-26] MEDS: ondansetron 2 mg/ML SDV 2 mL 8 MG IVP (08:30)
[2021-01-26] MEDS: LORazepam 0.5 mg Tablet PO (08:30)
[2021-01-26 08:54] LABS: Basophils # 0.1 10^3/uL (0.0-0.1); Basophils % 0.6 %; Eosinophils # 0.1 10^3/uL (0.0-0.8); Eosinophils % 1.2 %; Hematocrit 40.3 % (37.0-47.0); Lymphocytes # 2.5 10^3/uL (0.8-4.8); Lymphocytes % 28.5 %; Mean Corpuscular HGB Conc 32.3 g/dL (30.0-36.0); Mean Corpuscular Volume 92.9 fl (81-99); Mean Platelet Volume 11.1 fL (7.4-10.4); Monocytes # 0.7 10^3/uL (0.2-0.9); Monocytes % 7.8 %; Neutrophils # 5.46 10^3/uL (1.8-7.7); Neutrophils % 61.4 %; Nucleated Red Blood Cells % 0 %; Platelet Count 434 10^3/cmm (130-400); Red Blood Count 4.34 10^6/uL (4.1-5.3); Red Cell Distribution Width 15.7 % (12.1-15.1); White Blood Count 8.9 10^3/uL (4.0-10.0)
[2021-01-26 09:32] LABS: Alanine Aminotransferase 9 U/L (0-33); Albumin Level 3.6 g/dL (3.5-5.2); Alkaline Phosphatase 97 IU/L (35-105); Anion Gap 16.1 (5-19); Aspartate Amino Transferase 16 U/L (0-32); Blood Urea Nitrogen 6 mg/dL (6-20); Calcium 9.2 mg/dL (8.5-10.5); Carbon Dioxide 23 mmol/L (22-29); Chloride 98 mmol/L (98-107); Glomerular Filtration Rate 141.2 mL/min (90-130); Glucose 132 mg/dL (65-115); Osmolality Calculated 275 mOsm/kg (285-295); Potassium 4.1 mmol/L (3.5-5.1); Sodium 133 mmol/L (136-145); Total Bilirubin 0.3 mg/dL (0.15-1.2); Total Protein 6.6 g/dL (6.6-8.7)
== END 2021-01-26 07:56 | disposition home or self-care (01) ==
LOC: ONCMED 07:55
PROVIDERS: PCP Nurse Practitioner Family; Visit Provider Internal Medicine Medical Oncology
DX: E00-E89 Endocrine, nutritional and metabolic diseases (principal); D50.9 Iron deficiency anemia, unspecified; E87.6 Hypokalemia; Z79.899 Other long term (current) drug therapy
CPT/HCPCS: 80053; 85025; 96365; 96366; 96375; J1322; J2405; J7040; J7050

== ENCOUNTER 2021-02-01 06:52 | Outpatient (CLI) | payer MEDICARE, MEDICAID, SELFPAY ==
[2021-02-01] MEDS: diphenhydrAMINE 25 mg Capsule 50 MG PO (08:30)
[2021-02-01] MEDS: famotidine 20 mg Tablet PO (08:30)
[2021-02-01] MEDS: acetaminophen 325 mg Tablet 650 MG PO (08:30)
[2021-02-01] MEDS: alteplase 1 mg/mL SDV 2 mL 2 MG IV (08:30)
[2021-02-01] MEDS: HYDROcodone-acetaminophen 10-325 mg Tablet 1 TAB PO ×2 (08:30→13:00)
[2021-02-01] MEDS: ondansetron 2 mg/ML SDV 2 mL 8 MG IVP (09:10)
[2021-02-01] MEDS: sodium chloride 0.9% 500 ML 75 ML IV (09:20)
[2021-02-01] MEDS: LORazepam 0.5 mg Tablet PO (10:45)
== END 2021-02-01 06:53 | disposition home or self-care (01) ==
LOC: ONCMED 06:52
PROVIDERS: PCP Nurse Practitioner Family; Visit Provider Internal Medicine Medical Oncology
DX: E00-E89 Endocrine, nutritional and metabolic diseases (principal)
CPT/HCPCS: 36593; 90471; 90686; 96365; 96366; 96367; 96375; J1322; J2405; J2997; J7040; J7050

== ENCOUNTER → 2021-02-02 11:04 | Outpatient (BNVA) | payer MEDICARE, MEDICAID, SELFPAY | PROVIDERS: PCP Nurse Practitioner Family; Visit Provider Specialist | DX: G43.709 Chronic migraine without aura, not intractable, without status migrainosus (principal); F98.8 Other specified behavioral and emotional disorders with onset usually occurring in childhood and adolescence; Z71.89 Other specified counseling | CPT/HCPCS: 64615; 99213; 99214; J0585 ==

== ENCOUNTER 2021-02-03 06:00 | Outpatient (RCR) | payer MEDICARE, MEDICAID, SELFPAY | END 2021-03-05 23:59 | disposition home or self-care (01) | LOC: SPT 06:00 | PROVIDERS: PCP Nurse Practitioner Family; Visit Provider Orthopaedic Surgery | DX: E76.219 Morquio mucopolysaccharidoses, unspecified (principal); M54.9 Dorsalgia, unspecified | CPT/HCPCS: 97140 ==

== ENCOUNTER 2021-02-08 06:41 | Outpatient (CLI) | payer MEDICARE, MEDICAID, SELFPAY ==
[2021-02-08] MEDS: ondansetron 2 mg/ML SDV 2 mL 8 MG IVP (08:24)
[2021-02-08] MEDS: acetaminophen 325 mg Tablet 650 MG PO (08:24)
[2021-02-08] MEDS: diphenhydrAMINE 25 mg Capsule 50 MG PO (08:24)
[2021-02-08] MEDS: HYDROcodone-acetaminophen 10-325 mg Tablet 1 TAB PO (08:24)
[2021-02-08] MEDS: famotidine 20 mg Tablet PO (08:24)
[2021-02-08] MEDS: sodium chloride 0.9% 500 ML 75 ML IV (08:24)
== END 2021-02-08 06:42 | disposition home or self-care (01) ==
LOC: ONCMED 06:42
PROVIDERS: PCP Nurse Practitioner Family; Visit Provider Internal Medicine Medical Oncology
DX: E00-E89 Endocrine, nutritional and metabolic diseases (principal); G89.29 Other chronic pain; I10 Essential (primary) hypertension; J45.20 Mild intermittent asthma, uncomplicated; K21.9 Gastro-esophageal reflux disease without esophagitis; K31.84 Gastroparesis; M19.90 Unspecified osteoarthritis, unspecified site; G43.709 Chronic migraine without aura, not intractable, without status migrainosus; F41.9 Anxiety disorder, unspecified; F32.A Depression, unspecified; Z79.899 Other long term (current) drug therapy
CPT/HCPCS: 96365; 96366; 96375; J1322; J2405; J7040; J7050

== ENCOUNTER 2021-02-15 06:38 | Outpatient (CLI) | payer MEDICARE, MEDICAID, SELFPAY ==
[2021-02-15] MEDS: ondansetron 2 mg/ML SDV 2 mL 8 MG IVP (08:33)
[2021-02-15] MEDS: famotidine 20 mg Tablet PO (08:35)
[2021-02-15] MEDS: acetaminophen 325 mg Tablet 650 MG PO (08:35)
[2021-02-15] MEDS: HYDROcodone-acetaminophen 10-325 mg Tablet 1 TAB PO (08:35)
[2021-02-15] MEDS: LORazepam 0.5 mg Tablet PO (08:35)
[2021-02-15] MEDS: sodium chloride 0.9% 500 ML 75 ML IV (08:35)
[2021-02-15] MEDS: diphenhydrAMINE 25 mg Capsule 50 MG PO (08:35)
[2021-02-15 09:28] LABS: Basophils # 0.1 10^3/uL (0.0-0.1); Basophils % 0.9 %; Eosinophils # 0.2 10^3/uL (0.0-0.8); Eosinophils % 2.5 %; Hematocrit 46.9 % (37.0-47.0); Hemoglobin 15.4 g/dL (11.5-15.3); Lymphocytes # 2.3 10^3/uL (0.8-4.8); Lymphocytes % 33.4 %; Mean Corpuscular HGB Conc 32.8 g/dL (30.0-36.0); Mean Corpuscular Hemoglobin 30.3 pg (28.0-34.0); Mean Corpuscular Volume 92.1 fl (81-99); Mean Platelet Volume 11.7 fL (7.4-10.4); Monocytes # 0.6 10^3/uL (0.2-0.9); Monocytes % 9.1 %; Nucleated Red Blood Cells % 0 %; Platelet Count 261 10^3/cmm (130-400); Red Blood Count 5.09 10^6/uL (4.1-5.3); Red Cell Distribution Width 15.5 % (12.1-15.1); White Blood Count 6.9 10^3/uL (4.0-10.0)
[2021-02-15 09:56] LABS: Alanine Aminotransferase 19 U/L (0-33); Albumin Level 4.2 g/dL (3.5-5.2); Alkaline Phosphatase 109 IU/L (35-105); Anion Gap 16.6 (5-19); Aspartate Amino Transferase 26 U/L (0-32); Blood Urea Nitrogen 24 mg/dL (6-20); Calcium 9.7 mg/dL (8.5-10.5); Carbon Dioxide 20 mmol/L (22-29); Chloride 102 mmol/L (98-107); Globulin 3.2 g/dL (1.3-4.6); Glomerular Filtration Rate 114.4 mL/min (90-130); Glucose 86 mg/dL (65-115); Osmolality Calculated 283 mOsm/kg (285-295); Potassium 3.6 mmol/L (3.5-5.1); Sodium 135 mmol/L (136-145); Total Bilirubin 0.3 mg/dL (0.15-1.2); Total Protein 7.4 g/dL (6.6-8.7)
[2021-02-15 10:12] LABS: 25 Hydroxy Vitamin D 70 ng/mL (30-100)
--- NOTE | 2021-02-19 23:35 | ONC FU_ITS ---
Danie Souza Patient Note Patient: Elisa Campbell Unit #: [id number]: [id number] Dictated By: Ajit PinoDate of Visit: Feb 15, 2021 Onc MED Follow-Up/Prog Note Chief Complaint: Mucopolysaccharidosis type IV-A. History of Present Illness: Ms Campbell is a 35 year-old woman with mucopolysaccharidosis type IV-A (Morquio type A ). She had been seen by a map plotter and by a genetic counselor at the [facility] during a hospital admission in February 2014. Subsequent studies did confirm a diagnosis of Morquio type A mucoploysaccharidosis. It was suggested at that time that she may want to consider the possibility of initiating a trial of therapy with Vimizin. After receiving further information about the medication, she did opt for treatment, which she started in July 2014. For convenience she requested to receive her treatment here, as it required weekly administration and she felt it would be difficult for her to travel to [place] for it. Subjectively, she had some improvement in her musculoskeletal pain with the treatment, and she also had improvement in her performance status. She presented to the emergency room at [facility] on 06/18/2016 with vomiting, abdominal pain, and diarrhea. She was transferred to [facility] in [place] and admitted to the hospital. Her GI evaluation apparently was unrevealing. She was discharged home on 06/24/2016 on Zofran ODT 8 mg and pantoprazole 40 mg daily. She has had follow-up with the furniture arranger, and he apparently felt that the problem was related to the underlying gastroparesis. During her further follow-up she required required treatment for hypokalemia on an intermittent basis. She continued her weekly infusions of elosulfase genoveva. In April 2019 she began to complain of abdominal pain. Her CT abdomen/pelvis on 04/20/2019 showed no acute findings. On 04/24/2019 she presented to the emergency room with persistent right upper quadrant pain. Gallbladder ultrasound was normal. Her liver enzymes, though, were markedly elevated with SGOT 3530 U/L and SGPT 3306 U/L. Her total bilirubin was normal at 0.4 mg/dL and the alkaline phosphatase was just slightly elevated at 138/105 IU/L. Her viral hepatitis serology was negative. She was transferred to the [facility] for admission, and she improved with conservative management. A specific cause for the illness was ever determined. During the course of that hospitalization, though, she apparently was found to have evidence of pulmonary embolism, and she did start anticoagulation with apixaban. Following discharge she was able to restart her weekly elosulfase genoveva infusions. She remains on weekly treatments and tolerates them well. Her medical illnesses, in addition to Morquio type A mucopolysaccharidosis , include hypertension, mild asthma, GERD, gastroparesis, and chronic migraine. She has degenerative arthritis, and she also has anxiety/depression. She underwent left total hip arthroplasty in December 2015 and right total hip arthroplasty in March 2016. She is a nonsmoker. INTERIM HISTORY: Ms Campbell is here today for a scheduled followup visit. She has no new concerns today. She has lost 2 family members (her dad and uncle) due to COVID since her last visit. She has had some situational depression with the loss, but states it is better now and she feels it is controlled. She has not had any fever or chills. She denies any new sinus congestion or sinus drainage. She has had no sore throat or swollen lymph nodes that she is aware of. She did not take her blood pressure medication today and her blood pressure is noted to be elevated. She states she generally takes it every other day. She does have a tendency to be hypotensive at times and does regulate her own blood pressure medication however she states she did forget to take it today and maybe for the last couple of days. She denies any fever or chills. She denies any new shortness of breath or cough. She is had no hemoptysis. She has gastroparesis which bothers her at times but states is not been any more than her normal which is about every 2 to 3 weeks sometimes longer depending on what she eats. She denies any problems with her bladder function. She denies any urinary frequency or hesitancy. She has chronic musculoskeletal pain which she states is normal for me . Her pain is controlled with oxycodone. She does receive Botox injections for chronic migraines and tolerates these well. She denies any vision changes. She has had no increase in her headaches and states that she feels they are well controlled. She denies any rashes or skin changes. She states her energy is about the same which she describes as marginal. She can do all her ADLs without assistance. She does get out of the house and do things with friends and family and tolerates this well. Her ECOG is 1. She reports she did have COVID in December 2020 and has had persistent fatigue after recovery. The fatigue is slowly improving. Past Medical History: Anxiety and depression Gastroesophageal reflux disease Gastroparesis Hypertension Migraines Mild asthma Morquio type A COVID 19 in 2020 Past Surgical History: Flu Vaccine in 2020 Flu vaccine in 2019 Introduction of influenza vaccine into muscle, perc approach in 2018 Flu Vaccine in 2018 Flu Vaccine in 2017 - per pt. Right subclavian venous access device-Dr Beverley More ([facility]) in 2014 EGD in 2013 Spinal fusion in 2002 Spinal fusion in 2000 Leg surgery in 1998 Allergies: ADHESIVE, AZITHROMYCIN, COMPAZINE, GABAPENTIN, METOCLOPRAMIDE, and TraMADol HCl. Medications: Albuterol Sulfate HFA Aerosol, solution Inhalation PRN Ativan (1 mg) Tablet Oral b.i.d. PRN Benadryl 1 Capsule (of 25 mg) Oral q 6 hours PRN Botox Injection Take as Directed Coreg 1 Tablet (of 25 mg) Oral daily Depo-Provera 150 mg (of 400 mg/mL) Intramuscular q 90 days Effexor XR 1 (75 mg) Capsule SR 24 HR Oral at bedtime Effexor XR 1 Capsule (of 150 mg) Capsule SR 24 HR Oral daily Eliquis 1 Tablet (of 2.5 mg) Oral daily Erythromycin Base 1 Capsule (of 250 mg) Capsule Delayed Release Particles Oral four times a day hydroCHLOROthiazide 1 Tablet (of 25 mg) Oral daily Lasix 1 (5 mg) Tablet Oral daily PRN Lisinopril 2.5 Tablet (of 2.5 mg) Oral daily PRN Marinol 1 (2.5 mg) Capsule Oral b.i.d. PRN Mobic 1 Tablet (of 7.5 mg) Oral b.i.d. Ondansetron HCl 1 (4 mg) Tablet Oral q 8 hours PRN Pepcid 1 Tablet (of 40 mg) Oral daily Potassium Chloride Laura ER 1 (40 meq) Tablet, controlled release Oral daily TiZANidine HCl 1 (4 mg) Tablet Oral t.i.d. PRN Family History: Ms. Campbell's mother is alive: Right mandibular carcinoma July 2020. Ms. Campbell's father at age 67: COVID 19. Her mother has cardiomyopathy and head/neck cancer. There is diabetes on her father's side of the family. Her maternal great grandmother with breast cancer. One brother is in good health. Social History: Ms. Campbell is single and she is a disabled. Ms. Campbell has never smoked. She has no history of drinking. Ms. Campbell reports the following support systems: lives with spouse, significant other, family, or friends, lives in own house, supportive family/friends willing to assist with needs, and adequate transportation available for expected visits. Her diet consists of regular meals. She indicates her activity level as: daily activities. Review Of Symptoms: <See Above> Vital Signs: Performed on Feb 15, 2021 09:44 Height - 47.00 in Weight - 85.5 lbs BSA - 1.09 sq.m BMI - 27.21 Temperature - 97.5 F (LOW) Pulse - 90 /min Respiration - 18 /min BP - 160/90 mm(hg) (HIGH) O2 Sat - 97 % Pain - 5 Fatigue - 3 Performed on Feb 15, 2021 09:25 Height - 47.00 in Temperature - 97.2 F (LOW) Pulse - 88 /min Respiration - 20 /min BP - 150/112 mm(hg) (HIGH) O2 Sat - 97 % Performed on Feb 15, 2021 07:59 Height - 47.00 in Weight - 85.5 lbs (LOW) BSA - 1.09 sq.m BMI - 27.21,1 - No physically strenuous activity, but ambulatory and able to carry out light or sedentary work (e.g. office work, light house work). (ECOG) Physical Examination: Constitutional Alert, oriented, no acute distress. Skin pink, warm and dry. Head Normocephalic; atraumatic. Eyes Conjunctivae and sclerae are clear and without icterus. Pupils are reactive and equal. Neck Supple without masses or thyromegaly. No jugular venous distension. Hematologic/Lymphatic No petechiae or purpura. Respiratory Lungs are clear to auscultation without rhonchi or wheezing. Cardiovascular Regular rate and rhythm of heart without murmurs,clicks, gallops or rubs. Chest Right subclavian venous access device unremarkable. Abdomen Non-tender, non-distended, no masses, ascites. Good bowel sounds noted in all quads. No guarding or rebound tenderness. No pulsatile masses. Back/Spine Non-tender to palpation. Extremities Short stature with slight contractures noted in feet and hands, no cyanosis, clubbing or edema. bilaterally. Musculoskeletal No tenderness or swelling, normal range of motion without obvious weakness. Integumentary No rashes or lesions. Neurologic No sensory or motor deficits, normal cerebellar function, normal gait-for patient. It is altered slightly due to small stature and slight contractures. Psychiatric Alert and oriented times three. Coherent speech. Verbalizes understanding of our discussions today. Laboratory:Test performed on Feb 15, 2021 08:51 Sodium 135 mmol/L Vitamin D (25-Hydroxy), Total 70 ng/mL Potassium 3.6 mmol/L Chloride 102 mmol/L CO2 20 mmol/L Anion Gap 16.6 BUN 24 mg/dL Creatinine 0.6 mg/dL Cr Clearance (Est) 88.7400 mL/min eGFR 114.4 mL/min Glucose 86 mg/dL Osmolality - Calculated 283 mOsm/kg Calcium 9.7 mg/dL Protein, Total 7.4 g/dL Albumin 4.2 g/dL Globulin 3.2 g/dL Bilirubin, Total 0.3 mg/dL ALT (SGPT) 19 U/L AST (SGOT) 26 U/L Alkaline Phosphatase 109 IU/L WBC 6.9 10 3/uL RBC 5.09 10 6/uL HGB 15.4 g/dL HCT 46.9 % MCV 92.1 fl MCH 30.3 pg MCHC 32.8 g/dL RDW 15.5 % Platelet Count 261 10 3/cmm MPV 11.7 fL Neutrophils 3.70 10 3/uL Lymphocytes 2.3 10 3/uL Monocytes 0.6 10 3/uL Eosinophils 0.2 10 3/uL Basophils 0.1 10 3/uL Neutrophil % 54.0 % Lymphocyte % 33.4 % Monocyte % 9.1 % Eosinophil % 2.5 % Basophils % 0.9 % NRBC % 0 % Test performed on Oct 19, 2020 09:09 Magnesium 1.8 mg/dL Impression: 1. Morquio type A (mucopolysaccharidosis IV-A). 2. She has chronic musculoskeletal pain. 3. She has recurrent episodes of hypokalemia. 4. She has required treatment for iron deficiency anemia. 5. Hypertension. 6. Mild asthma. 7. GERD. 8. Gastroparesis. 9. Degenerative arthritis. 10. Chronic migraine. 11. Chronic anxiety/depression. Plan/Problems Addressed at this Visit: 1. Morquio type A (mucopolysaccharidosis IV-A). She began treatment with elosulfase genoveva in July 2014. She has tolerated the treatment well, and she had noted improvement in her muscle pain and in her energy/activity tolerance. Overall she had noticed a big difference with the treatment. Her clinical status at this point appears stable. She has had a recent follow-up visit with her map plotter. A. Proceed with elosulfase genoveva 2 mg/kg by IV infusion weekly. B. Today's labs reviewed in detail and discussed with Germaine Shannan and a copy was given to her. WBC 6.9, hemoglobin 15.4, platelets are 61,000 ANC is 3700. Potassium 3.6 creatinine 0.6 random glucose was 86 her LFTs are normal alk phos was 109. She reports she had a rough night last night because her arthritis was really bad . Her pain is better today however she is somewhat uncomfortable here in the clinic. Her weight is 85.5 pounds. C. She did receive her flu vaccine in January 2021. 2. She has chronic musculoskeletal pain. A. It has been managed adequately with hydrocodone/APAP. She has had a refill per Dr. Ramirez. B. Chronic headaches-she follows with Dr. Joya for Botox injections 3. She has had intermittent episodes of hypokalemia. A. Her potassium is normal today. She was encouraged to continue her current potassium supplementation. 4. Hypertension. A. She was advised to continue to follow with cardiology and to call them with blood pressure readings within the next week or so as her initial blood pressure here wa 162/132 but recheck after 8 minutes of restng quietly in a private room resulted in a BP of 160/90. She did not take her blood pressure medication this am. She reports she is NOT taking Coreg B. She does have tendency to low blood pressures at times so she will monitor them carefully and will adjust her blood pressure medications accordingly. 5. Follow-up plan A. She will continue her weekly elosulfase infusions as above. B. We will plan for routine follow-up in 4 months at which time she will have CBC CMP. C. She may have interim chemistries as indicated as she has had trouble with hypokalemia in the past. D. Refill lorazepam at 2 mg three times daily prn. e. Ms. Barros was encouraged to let us know in the interim if questions or problems arise. Signed By: Ajit Pino-, AOCNP Leon Ramirez MD <<Signature on File>>
== END 2021-02-15 06:39 | disposition home or self-care (01) ==
PROVIDERS: PCP Nurse Practitioner Family; Visit Provider Nurse Practitioner
DX: E00-E89 Endocrine, nutritional and metabolic diseases (principal); D50.9 Iron deficiency anemia, unspecified; Z79.899 Other long term (current) drug therapy
CPT/HCPCS: 80053; 82306; 85025; 96365; 96366; 96375; 99215; J1322; J2405; J7040; J7050

== ENCOUNTER 2021-02-21 06:39 | Outpatient (CLI) | payer MEDICARE, MEDICAID, SELFPAY ==
[2021-02-21] MEDS: ondansetron 2 mg/ML SDV 2 mL 8 MG IVP (08:29)
[2021-02-21] MEDS: famotidine 20 mg Tablet PO (08:30)
[2021-02-21] MEDS: HYDROcodone-acetaminophen 10-325 mg Tablet 1 TAB PO (08:30)
[2021-02-21] MEDS: sodium chloride 0.9% 500 ML 100 ML IV (08:30)
[2021-02-21] MEDS: acetaminophen 325 mg Tablet 650 MG PO (08:30)
[2021-02-21] MEDS: diphenhydrAMINE 25 mg Capsule 50 MG PO (08:30)
== END 2021-02-21 06:40 | disposition home or self-care (01) ==
LOC: ONCMED 06:40
PROVIDERS: PCP Nurse Practitioner Family; Visit Provider Internal Medicine Medical Oncology
DX: E00-E89 Endocrine, nutritional and metabolic diseases (principal); Z79.899 Other long term (current) drug therapy
CPT/HCPCS: 96365; 96366; 96375; J1322; J2405; J7040; J7050

== ENCOUNTER 2021-02-28 07:52 | Outpatient (CLI) | payer MEDICARE, MEDICAID, SELFPAY ==
[2021-02-28] MEDS: sodium chloride 0.9% 500 ML 75 ML IV (08:50)
[2021-02-28] MEDS: ondansetron 2 mg/ML SDV 2 mL 8 MG IVP (08:50)
[2021-02-28] MEDS: famotidine 20 mg Tablet PO (08:50)
[2021-02-28] MEDS: HYDROcodone-acetaminophen 10-325 mg Tablet 1 TAB PO (08:50)
[2021-02-28] MEDS: diphenhydrAMINE 25 mg Capsule 50 MG PO (08:50)
[2021-02-28] MEDS: acetaminophen 325 mg Tablet 650 MG PO (08:50)
== END 2021-02-28 07:53 | disposition home or self-care (01) ==
PROVIDERS: PCP Nurse Practitioner Family; Visit Provider Internal Medicine Medical Oncology
DX: E00-E89 Endocrine, nutritional and metabolic diseases (principal); D50.9 Iron deficiency anemia, unspecified
CPT/HCPCS: 96365; 96366; 96375; J1322; J2405; J7040; J7050

== ENCOUNTER 2021-03-06 06:00 | Outpatient (RCR) | payer MEDICARE, MEDICAID, SELFPAY | END 2021-04-04 23:59 | disposition home or self-care (01) | LOC: SPT 06:00 | PROVIDERS: PCP Nurse Practitioner Family; Visit Provider Orthopaedic Surgery | DX: E76.219 Morquio mucopolysaccharidoses, unspecified (principal) | CPT/HCPCS: 97124; 97140 ==

== ENCOUNTER 2021-03-08 07:56 | Outpatient (CLI) | payer MEDICARE, MEDICAID, SELFPAY ==
[2021-03-08] MEDS: sodium chloride 0.9% 500 ML 75 ML IV (08:27)
[2021-03-08] MEDS: ondansetron 2 mg/ML SDV 2 mL 8 MG IVP (08:27)
[2021-03-08] MEDS: acetaminophen 325 mg Tablet 650 MG PO (08:30)
[2021-03-08] MEDS: diphenhydrAMINE 25 mg Capsule 50 MG PO (08:30)
[2021-03-08] MEDS: HYDROcodone-acetaminophen 10-325 mg Tablet 1 TAB PO ×2 (08:30→12:45)
[2021-03-08] MEDS: famotidine 20 mg Tablet PO (08:30)
== END 2021-03-08 07:57 | disposition home or self-care (01) ==
PROVIDERS: PCP Nurse Practitioner Family; Visit Provider Internal Medicine Medical Oncology
DX: E00-E89 Endocrine, nutritional and metabolic diseases (principal); D50.9 Iron deficiency anemia, unspecified; Z79.899 Other long term (current) drug therapy
CPT/HCPCS: 96365; 96366; 96375; J1322; J2405; J7040; J7050

== ENCOUNTER 2021-03-15 06:02 | Outpatient (CLI) | payer MEDICARE, MEDICAID, SELFPAY ==
[2021-03-15] MEDS: sodium chloride 0.9% 500 ML 999 ML IV (08:30)
[2021-03-15] MEDS: ondansetron 2 mg/ML SDV 2 mL 8 MG IVP (08:32)
[2021-03-15] MEDS: acetaminophen 325 mg Tablet 650 MG PO (08:35)
[2021-03-15] MEDS: famotidine 20 mg Tablet PO (08:35)
[2021-03-15] MEDS: LORazepam 0.5 mg Tablet PO (08:35)
[2021-03-15] MEDS: sodium chloride 0.9% 500 ML 40 ML IV (09:00)
[2021-03-15] MEDS: diphenhydrAMINE 25 mg Capsule 50 MG PO (10:14)
[2021-03-15] MEDS: HYDROcodone-acetaminophen 10-325 mg Tablet 1 TAB PO (10:35)
== END 2021-03-15 06:03 | disposition home or self-care (01) ==
LOC: ONCMED 06:03
PROVIDERS: PCP Nurse Practitioner Family; Visit Provider Internal Medicine Medical Oncology
DX: E00-E89 Endocrine, nutritional and metabolic diseases (principal); D50.9 Iron deficiency anemia, unspecified; Z79.899 Other long term (current) drug therapy
CPT/HCPCS: 96365; 96366; 96375; J1322; J2405; J7040; J7050

== ENCOUNTER 2021-03-22 05:56 | Outpatient (CLI) | payer MEDICARE, MEDICAID, SELFPAY ==
[2021-03-22] MEDS: ondansetron 2 mg/ML SDV 2 mL 8 MG IVP (08:33)
[2021-03-22] MEDS: HYDROcodone-acetaminophen 10-325 mg Tablet 1 TAB PO (08:33)
[2021-03-22] MEDS: diphenhydrAMINE 25 mg Capsule 50 MG PO (08:33)
[2021-03-22] MEDS: famotidine 20 mg Tablet PO (08:33)
[2021-03-22] MEDS: sodium chloride 0.9% 500 ML 75 ML IV (08:33)
[2021-03-22] MEDS: acetaminophen 325 mg Tablet 650 MG PO (08:33)
== END 2021-03-22 05:57 | disposition home or self-care (01) ==
LOC: ONCMED 05:56
PROVIDERS: PCP Nurse Practitioner Family; Visit Provider Internal Medicine Medical Oncology
DX: E00-E89 Endocrine, nutritional and metabolic diseases (principal); D50.9 Iron deficiency anemia, unspecified; Z79.899 Other long term (current) drug therapy
CPT/HCPCS: 96365; 96366; 96375; J1322; J2405; J7040; J7050

== ENCOUNTER 2021-03-29 06:50 | Outpatient (CLI) | payer MEDICARE, MEDICAID, SELFPAY ==
[2021-03-29] MEDS: sodium chloride 0.9% 500 ML 75 ML IV (08:30)
[2021-03-29] MEDS: famotidine 20 mg Tablet PO (08:30)
[2021-03-29] MEDS: diphenhydrAMINE 25 mg Capsule 50 MG PO (08:30)
[2021-03-29] MEDS: acetaminophen 325 mg Tablet 650 MG PO (08:30)
[2021-03-29] MEDS: HYDROcodone-acetaminophen 10-325 mg Tablet 1 TAB PO (08:30)
[2021-03-29] MEDS: ondansetron 2 mg/ML SDV 2 mL 8 MG IVP (08:32)
[2021-03-29] MEDS: LORazepam 0.5 mg Tablet PO (08:55)
== END 2021-03-29 06:51 | disposition home or self-care (01) ==
LOC: ONCMED 06:50
PROVIDERS: PCP Nurse Practitioner Family; Visit Provider Internal Medicine Medical Oncology
DX: E00-E89 Endocrine, nutritional and metabolic diseases (principal); D50.9 Iron deficiency anemia, unspecified; Z79.899 Other long term (current) drug therapy
CPT/HCPCS: 96365; 96366; 96375; J1322; J2405; J7040; J7050

== ENCOUNTER 2021-04-05 06:00 | Outpatient (RCR) | payer MEDICARE, MEDICAID, SELFPAY | END 2021-05-05 23:59 | disposition home or self-care (01) | LOC: SPT 06:00 | PROVIDERS: PCP Nurse Practitioner Family; Visit Provider Orthopaedic Surgery | DX: E76.219 Morquio mucopolysaccharidoses, unspecified (principal) | CPT/HCPCS: 97124; 97140 ==

== ENCOUNTER 2021-04-05 06:28 | Outpatient (CLI) | payer MEDICARE, MEDICAID, SELFPAY ==
[2021-04-05] MEDS: ondansetron 2 mg/ML SDV 2 mL 8 MG IVP (08:43)
[2021-04-05] MEDS: diphenhydrAMINE 25 mg Capsule 50 MG PO (08:45)
[2021-04-05] MEDS: LORazepam 0.5 mg Tablet PO (08:45)
[2021-04-05] MEDS: sodium chloride 0.9% 500 ML 75 ML IV (08:45)
[2021-04-05] MEDS: acetaminophen 325 mg Tablet 650 MG PO (08:45)
[2021-04-05] MEDS: HYDROcodone-acetaminophen 10-325 mg Tablet 1 TAB PO ×2 (08:45→13:05)
[2021-04-05] MEDS: famotidine 20 mg Tablet PO (08:45)
== END 2021-04-05 06:29 | disposition home or self-care (01) ==
LOC: ONCMED 06:30
PROVIDERS: PCP Nurse Practitioner Family; Visit Provider Internal Medicine Medical Oncology
DX: E00-E89 Endocrine, nutritional and metabolic diseases (principal); D50.9 Iron deficiency anemia, unspecified; Z79.899 Other long term (current) drug therapy; E76.219 Morquio mucopolysaccharidoses, unspecified
CPT/HCPCS: 96365; 96366; 96375; 97124; 97140; J1322; J2405; J7040; J7050

== ENCOUNTER 2021-04-12 06:37 | Outpatient (CLI) | payer MEDICARE, MEDICAID, SELFPAY ==
[2021-04-12] MEDS: ondansetron 2 mg/ML SDV 2 mL 8 MG IVP (08:27)
[2021-04-12] MEDS: diphenhydrAMINE 25 mg Capsule 50 MG PO (08:30)
[2021-04-12] MEDS: famotidine 20 mg Tablet PO (08:30)
[2021-04-12] MEDS: sodium chloride 0.9% 500 ML 75 ML IV (08:30)
[2021-04-12] MEDS: HYDROcodone-acetaminophen 10-325 mg Tablet 1 TAB PO ×2 (08:30→12:50)
[2021-04-12] MEDS: acetaminophen 325 mg Tablet 650 MG PO (08:30)
[2021-04-12] MEDS: LORazepam 0.5 mg Tablet PO (11:50)
== END 2021-04-12 06:38 | disposition home or self-care (01) ==
LOC: ONCMED 06:39
PROVIDERS: PCP Nurse Practitioner Family; Visit Provider Internal Medicine Medical Oncology
DX: E00-E89 Endocrine, nutritional and metabolic diseases (principal); D50.9 Iron deficiency anemia, unspecified; Z79.899 Other long term (current) drug therapy
CPT/HCPCS: 96365; 96366; 96375; J1322; J2405; J7040; J7050

== ENCOUNTER 2021-04-19 07:13 | Outpatient (CLI) | payer MEDICARE, MEDICAID, SELFPAY ==
[2021-04-19] MEDS: sodium chloride 0.9% 500 ML 75 ML IV (08:30)
[2021-04-19] MEDS: HYDROcodone-acetaminophen 10-325 mg Tablet 1 TAB PO ×2 (08:35)
[2021-04-19] MEDS: diphenhydrAMINE 25 mg Capsule 50 MG PO (08:35)
[2021-04-19] MEDS: famotidine 20 mg Tablet PO (08:35)
[2021-04-19] MEDS: acetaminophen 325 mg Tablet 650 MG PO (08:35)
[2021-04-19] MEDS: ondansetron 2 mg/ML SDV 2 mL 8 MG IVP (08:35)
[2021-04-19] MEDS: LORazepam 0.5 mg Tablet PO (12:02)
== END 2021-04-19 07:14 | disposition home or self-care (01) ==
LOC: ONCMED 07:14
PROVIDERS: PCP Nurse Practitioner Family; Visit Provider Internal Medicine Medical Oncology
DX: E00-E89 Endocrine, nutritional and metabolic diseases (principal); D50.9 Iron deficiency anemia, unspecified; Z79.899 Other long term (current) drug therapy
CPT/HCPCS: 96365; 96366; 96375; J1322; J2405; J7040; J7050

== ENCOUNTER 2021-04-26 06:14 | Outpatient (CLI) | payer MEDICARE, MEDICAID, SELFPAY ==
[2021-04-26] MEDS: sodium chloride 0.9% 500 ML 75 ML IV (08:30)
[2021-04-26] MEDS: HYDROcodone-acetaminophen 10-325 mg Tablet 1 TAB PO (08:35)
[2021-04-26] MEDS: acetaminophen 325 mg Tablet 650 MG PO (08:35)
[2021-04-26] MEDS: famotidine 20 mg Tablet PO (08:35)
[2021-04-26] MEDS: diphenhydrAMINE 25 mg Capsule 50 MG PO (08:35)
[2021-04-26] MEDS: ondansetron 2 mg/ML SDV 2 mL 8 MG IVP (08:36)
[2021-04-26] MEDS: loperamide 2 mg Capsule 4 MG PO (10:20)
[2021-04-26] MEDS: LORazepam 0.5 mg Tablet PO (10:30)
== END 2021-04-26 06:15 | disposition home or self-care (01) ==
LOC: ONCMED 06:17
PROVIDERS: PCP Nurse Practitioner Family; Visit Provider Internal Medicine Medical Oncology
DX: E00-E89 Endocrine, nutritional and metabolic diseases (principal); D50.9 Iron deficiency anemia, unspecified; Z79.899 Other long term (current) drug therapy
CPT/HCPCS: 96365; 96366; 96375; J1322; J2405; J7040; J7050

== ENCOUNTER → 2021-04-27 11:48 | Outpatient (BNVA) | payer MEDICARE, MEDICAID, SELFPAY | PROVIDERS: PCP Nurse Practitioner Family; Referring Provider Specialist; Visit Provider Specialist | DX: G43.711 Chronic migraine without aura, intractable, with status migrainosus (principal); F98.8 Other specified behavioral and emotional disorders with onset usually occurring in childhood and adolescence; E00-E89 Endocrine, nutritional and metabolic diseases; Z79.899 Other long term (current) drug therapy | CPT/HCPCS: 64615; 96372; 99213; 99214; J0585; J1885; J2405 ==

== ENCOUNTER 2021-05-03 06:40 | Outpatient (CLI) | payer MEDICARE, MEDICAID, SELFPAY ==
[2021-05-03] MEDS: sodium chloride 0.9% 500 ML 75 ML IV (08:30)
[2021-05-03] MEDS: sodium chloride 0.9% 500 ML 999 ML IV (08:30)
[2021-05-03] MEDS: LORazepam 0.5 mg Tablet PO (08:30)
[2021-05-03] MEDS: ondansetron 2 mg/ML SDV 2 mL 8 MG IVP (08:30)
[2021-05-03] MEDS: diphenhydrAMINE 50 mg/mL SDV 1mL IVP (08:42)
[2021-05-03] MEDS: famotidine 20 mg/2 mL INJ IVP (08:44)
[2021-05-03] MEDS: acetaminophen 325 mg Tablet 650 MG PO (08:45)
[2021-05-03] MEDS: HYDROcodone-acetaminophen 10-325 mg Tablet 1 TAB PO (09:30)
== END 2021-05-03 06:41 | disposition home or self-care (01) ==
LOC: ONCMED 06:43
PROVIDERS: PCP Nurse Practitioner Family; Visit Provider Internal Medicine Medical Oncology
DX: E00-E89 Endocrine, nutritional and metabolic diseases (principal); D50.9 Iron deficiency anemia, unspecified; Z79.899 Other long term (current) drug therapy
CPT/HCPCS: 96365; 96366; 96375; J1200; J1322; J2405; J3490; J7040; J7050

== ENCOUNTER 2021-05-06 06:00 | Outpatient (RCR) | payer MEDICARE, MEDICAID, SELFPAY | END 2021-06-05 23:59 | disposition home or self-care (01) | LOC: SPT 06:00 | PROVIDERS: PCP Nurse Practitioner Family; Visit Provider Orthopaedic Surgery | DX: E76.219 Morquio mucopolysaccharidoses, unspecified (principal) | CPT/HCPCS: 97140 ==

== ENCOUNTER 2021-05-10 07:57 | Outpatient (CLI) | payer MEDICARE, MEDICAID, SELFPAY ==
[2021-05-10] MEDS: ondansetron 2 mg/ML SDV 2 mL 8 MG IVP (08:25)
[2021-05-10] MEDS: famotidine 20 mg Tablet PO (08:30)
[2021-05-10] MEDS: sodium chloride 0.9% 500 ML 75 ML IV (08:30)
[2021-05-10] MEDS: diphenhydrAMINE 25 mg Capsule 50 MG PO (08:30)
[2021-05-10] MEDS: acetaminophen 325 mg Tablet 650 MG PO (08:30)
[2021-05-10] MEDS: HYDROcodone-acetaminophen 10-325 mg Tablet 1 TAB PO (08:30)
[2021-05-10] MEDS: LORazepam 0.5 mg Tablet PO (09:20)
== END 2021-05-10 07:58 | disposition home or self-care (01) ==
LOC: ONCMED 08:00
PROVIDERS: PCP Nurse Practitioner Family; Visit Provider Internal Medicine Medical Oncology
DX: E00-E89 Endocrine, nutritional and metabolic diseases (principal); D50.9 Iron deficiency anemia, unspecified; Z79.899 Other long term (current) drug therapy
CPT/HCPCS: 96365; 96366; 96375; J1322; J2405; J7040; J7050

== ENCOUNTER 2021-05-18 06:38 | Outpatient (CLI) | payer MEDICARE, MEDICAID, SELFPAY ==
[2021-05-18] MEDS: HYDROcodone-acetaminophen 10-325 mg Tablet 1 TAB PO ×2 (08:20→12:49)
[2021-05-18] MEDS: famotidine 20 mg Tablet PO (08:20)
[2021-05-18] MEDS: acetaminophen 325 mg Tablet 650 MG PO (08:20)
[2021-05-18] MEDS: sodium chloride 0.9% 500 ML 75 ML IV (08:20)
[2021-05-18] MEDS: diphenhydrAMINE 25 mg Capsule 50 MG PO (08:20)
[2021-05-18] MEDS: ondansetron 2 mg/ML SDV 2 mL 8 MG IVP (08:27)
== END 2021-05-18 06:39 | disposition home or self-care (01) ==
LOC: ONCMED 06:41
PROVIDERS: PCP Nurse Practitioner Family; Visit Provider Internal Medicine Medical Oncology
DX: E00-E89 Endocrine, nutritional and metabolic diseases (principal); D50.9 Iron deficiency anemia, unspecified; Z79.899 Other long term (current) drug therapy
CPT/HCPCS: 96365; 96366; 96375; J1322; J2405; J7040; J7050

== ENCOUNTER 2021-05-24 06:42 | Outpatient (CLI) | payer MEDICARE, MEDICAID, SELFPAY ==
[2021-05-24] MEDS: diphenhydrAMINE 25 mg Capsule 50 MG PO (08:35)
[2021-05-24] MEDS: acetaminophen 325 mg Tablet 650 MG PO (08:35)
[2021-05-24] MEDS: HYDROcodone-acetaminophen 10-325 mg Tablet 1 TAB PO ×2 (08:35→13:00)
[2021-05-24] MEDS: sodium chloride 0.9% 500 ML 75 ML IV (08:35)
[2021-05-24] MEDS: ondansetron 2 mg/ML SDV 2 mL 8 MG IVP (08:36)
[2021-05-24] MEDS: famotidine 20 mg Tablet PO (08:36)
== END 2021-05-24 06:43 | disposition home or self-care (01) ==
LOC: ONCMED 06:44
PROVIDERS: PCP Nurse Practitioner Family; Visit Provider Internal Medicine Medical Oncology
DX: E00-E89 Endocrine, nutritional and metabolic diseases (principal); D50.9 Iron deficiency anemia, unspecified; Z79.899 Other long term (current) drug therapy
CPT/HCPCS: 96365; 96366; 96375; J1322; J2405; J7040; J7050

== ENCOUNTER 2021-05-31 06:40 | Outpatient (CLI) | payer MEDICARE, MEDICAID, SELFPAY ==
[2021-05-31] MEDS: sodium chloride 0.9% 500 ML 75 ML IV (08:20)
[2021-05-31] MEDS: acetaminophen 325 mg Tablet 650 MG PO (08:20)
[2021-05-31] MEDS: HYDROcodone-acetaminophen 10-325 mg Tablet 1 TAB PO ×2 (08:20→12:30)
[2021-05-31] MEDS: famotidine 20 mg Tablet PO (08:20)
[2021-05-31] MEDS: diphenhydrAMINE 25 mg Capsule 50 MG PO (08:20)
[2021-05-31] MEDS: LORazepam 0.5 mg Tablet PO (08:20)
[2021-05-31] MEDS: ondansetron 2 mg/ML SDV 2 mL 8 MG IVP (08:22)
== END 2021-05-31 06:41 | disposition home or self-care (01) ==
PROVIDERS: PCP Nurse Practitioner Family; Visit Provider Internal Medicine Medical Oncology
DX: E00-E89 Endocrine, nutritional and metabolic diseases (principal); D50.9 Iron deficiency anemia, unspecified; Z79.899 Other long term (current) drug therapy
CPT/HCPCS: 96365; 96366; 96375; J1322; J2405; J7040; J7050

== ENCOUNTER 2021-06-07 06:43 | Outpatient (CLI) | payer MEDICARE, MEDICAID, SELFPAY ==
[2021-06-07] MEDS: diphenhydrAMINE 25 mg Capsule 50 MG PO ×2 (07:25)
[2021-06-07] MEDS: sodium chloride 0.9% 500 ML 45 ML IV (07:25)
[2021-06-07] MEDS: acetaminophen 325 mg Tablet 650 MG PO (07:25)
[2021-06-07] MEDS: ondansetron 2 mg/ML SDV 2 mL 8 MG IVP (07:25)
[2021-06-07] MEDS: famotidine 20 mg Tablet PO (07:25)
[2021-06-07] MEDS: HYDROcodone-acetaminophen 10-325 mg Tablet 1 TAB PO (07:25)
== END 2021-06-07 06:44 | disposition home or self-care (01) ==
LOC: ONCMED 06:44
PROVIDERS: PCP Nurse Practitioner Family; Visit Provider Internal Medicine Medical Oncology
DX: E00-E89 Endocrine, nutritional and metabolic diseases (principal); D50.9 Iron deficiency anemia, unspecified; Z79.899 Other long term (current) drug therapy
CPT/HCPCS: 96365; 96366; J1322; J2405; J7040; J7050

== ENCOUNTER 2021-06-14 06:45 | Outpatient (CLI) | payer MEDICARE, MEDICAID, SELFPAY ==
[2021-06-14] MEDS: diphenhydrAMINE 25 mg Capsule 50 MG PO (08:30)
[2021-06-14] MEDS: sodium chloride 0.9% 500 ML 75 ML IV (08:30)
[2021-06-14] MEDS: famotidine 20 mg Tablet PO (08:30)
[2021-06-14] MEDS: LORazepam 0.5 mg Tablet PO (08:30)
[2021-06-14] MEDS: acetaminophen 325 mg Tablet 650 MG PO (08:30)
[2021-06-14] MEDS: HYDROcodone-acetaminophen 10-325 mg Tablet 1 TAB PO (08:30)
[2021-06-14 08:32] LABS: Basophils # 0.1 10^3/uL (0.0-0.1); Basophils % 0.7 %; Eosinophils # 0.1 10^3/uL (0.0-0.8); Eosinophils % 0.8 %; Hematocrit 37.8 % (37.0-47.0); Hemoglobin 12.2 g/dL (11.5-15.3); Lymphocytes # 2.5 10^3/uL (0.8-4.8); Lymphocytes % 29.3 %; Mean Corpuscular HGB Conc 32.3 g/dL (30.0-36.0); Mean Corpuscular Hemoglobin 30.4 pg (28.0-34.0); Mean Corpuscular Volume 94.3 fl (81-99); Mean Platelet Volume 10.1 fL (7.4-10.4); Monocytes # 0.6 10^3/uL (0.2-0.9); Monocytes % 7.3 %; Neutrophils # 5.15 10^3/uL (1.8-7.7); Neutrophils % 61.1 %; Nucleated Red Blood Cells % 0 %; Platelet Count 384 10^3/cmm (130-400); Red Blood Count 4.01 10^6/uL (4.1-5.3); Red Cell Distribution Width 13.6 % (12.1-15.1); White Blood Count 8.4 10^3/uL (4.0-10.0)
[2021-06-14] MEDS: ondansetron 2 mg/ML SDV 2 mL 8 MG IVP (08:34)
[2021-06-14 09:25] LABS: Alanine Aminotransferase 6 U/L (0-33); Albumin Level 4.1 g/dL (3.5-5.2); Alkaline Phosphatase 88 IU/L (35-105); Anion Gap 15.6 (5-19); Aspartate Amino Transferase 16 U/L (0-32); Blood Urea Nitrogen 14 mg/dL (6-20); Calcium 9.4 mg/dL (8.5-10.5); Carbon Dioxide 21 mmol/L (22-29); Chloride 102 mmol/L (98-107); Globulin 2.4 g/dL (1.3-4.6); Glomerular Filtration Rate 182.7 mL/min (90-130); Glucose 93 mg/dL (65-115); Osmolality Calculated 280 mOsm/kg (285-295); Potassium 3.6 mmol/L (3.5-5.1); Sodium 135 mmol/L (136-145); Total Bilirubin 0.2 mg/dL (0.15-1.2); Total Protein 6.5 g/dL (6.6-8.7)
[2021-06-14 10:46] LABS: 25 Hydroxy Vitamin D > 100 ng/mL (30-100)
--- NOTE | 2021-06-14 15:47 | ONC FU_ITS ---
Dr. Ramirez Patient Follow-Up Note Patient: Elisa Campbell Unit #: [id number]: 1985 Dicatated By: Leon Ramirez M.D.Date of Visit:Jun 14, 2021 Onc Med Follow-up/Prog Note Chief Complaint: Mucopolysaccharidosis type IV-A. History of Present Illness: This is a 34 year-old woman with mucopolysaccharidosis type IV-A (Morquio type A ). She had been seen by a wood mill supervisor and by a genetic counselor at the [facility] during a hospital admission in February 2014. Subsequent studies did confirm a diagnosis of Morquio type A mucoploysaccharidosis. It was suggested at that time that she may want to consider the possibility of initiating a trial of therapy with Vimizin. After receiving further information about the medication, she did opt for treatment, which she started in July 2014. For convenience she requested to receive her treatment here, as it required weekly administration and she felt it would be difficult for her to travel to [place] for it. Subjectively, she had some improvement in her musculoskeletal pain with the treatment, and she also had improvement in her performance status. She presented to the emergency room at [facility] on 06/18/2016 with vomiting, abdominal pain, and diarrhea. She was transferred to [facility] in [place] and admitted to the hospital. Her GI evaluation apparently was unrevealing. She was discharged home on 06/24/2016 on Zofran ODT 8 mg and pantoprazole 40 mg daily. She has had follow-up with the solar photovoltaic designer, and he apparently felt that the problem was related to the underlying gastroparesis. During her further follow-up she required required treatment for hypokalemia on an intermittent basis. She continued her weekly infusions of elosulfase genoveva. In April 2019 she began to complain of abdominal pain. Her CT abdomen/pelvis on 04/20/2019 showed no acute findings. On 04/24/2019 she presented to the emergency room with persistent right upper quadrant pain. Gallbladder ultrasound was normal. Her liver enzymes, though, were markedly elevated with SGOT 3530 U/L and SGPT 3306 U/L. Her total bilirubin was normal at 0.4 mg/dL and the alkaline phosphatase was just slightly elevated at 138/105 IU/L. Her viral hepatitis serology was negative. She was transferred to the [facility] for admission, and she improved with conservative management. A specific cause for the illness was ever determined. During the course of that hospitalization, though, she apparently was found to have evidence of pulmonary embolism, and she did start anticoagulation with apixaban. Following discharge she was able to restart her weekly elosulfase genoveva infusions. Her medical illnesses, in addition to Morquio type A mucopolysaccharidosis , include hypertension, mild asthma, GERD, gastroparesis, and chronic migraine. She has degenerative arthritis, and she also has anxiety/depression. She underwent left total hip arthroplasty in December 2015 and right total hip arthroplasty in March 2016. She is a nonsmoker. INTERIM HISTORY: She was diagnosed with COVID-19 virus infection in December 2020. She had an uneventful recovery, but her father and an uncle both with it. She is seen for a follow-up visit. She has been feeling pretty good lately. She has limited activity, mainly due to her musculoskeletal pain. She is able to do light work. She had lost her taste sensation with the COVID-19 infection, and she did have a 20 pound weight loss. For at least the past week she has had good appetite. She has not had fever. She does have some hot flashes and sweating. She recently completed antibiotic therapy for pain and drainage from the right ear. She also lost her voice transiently. She has just a little bit of cough. Her breathing has been okay. She does not complain of chest pain. She is not had any stomach trouble this past week, but prior to that she had a week of recurrent vomiting. Bowel and bladder function have been okay. She has a lot of back pain. She also has joint pain in the hands and ankles, and that has been worse with the cold weather. She says her hips are not too bad. She has migraine headaches, and she is getting treatment with Dr. Joya. She has no focal neurologic symptoms. Medications: Albuterol Sulfate HFA Aerosol, solution Inhalation PRN, Ativan (1 mg) Tablet Oral b.i.d. PRN, Benadryl 1 Capsule (of 25 mg) Oral q 6 hours PRN, Botox Injection Take as Directed, Coreg 1 Tablet (of 25 mg) Oral daily, Depo-Provera 150 mg (of 400 mg/mL) Intramuscular q 90 days, Effexor XR 1 (75 mg) Capsule SR 24 HR Oral at bedtime, Effexor XR 1 Capsule (of 150 mg) Capsule SR 24 HR Oral daily, Eliquis 1 Tablet (of 2.5 mg) Oral daily, Erythromycin Base 1 Capsule (of 250 mg) Capsule Delayed Release Particles Oral four times a day, hydroCHLOROthiazide 1 Tablet (of 25 mg) Oral daily, Lasix 1 (5 mg) Tablet Oral daily PRN, Lisinopril 2.5 Tablet (of 2.5 mg) Oral daily PRN, Marinol 1 (2.5 mg) Capsule Oral b.i.d. PRN, Mobic 1 Tablet (of 7.5 mg) Oral b.i.d., Ondansetron HCl 1 (4 mg) Tablet Oral q 8 hours PRN, Pepcid 1 Tablet (of 40 mg) Oral daily, Potassium Chloride Laura ER 1 (40 meq) Tablet, controlled release Oral daily, TiZANidine HCl 1 (4 mg) Tablet Oral t.i.d. PRN Allergies: ADHESIVE, AZITHROMYCIN, COMPAZINE, GABAPENTIN, METOCLOPRAMIDE, and TraMADol HCl. Vital Signs: Performed on Jun 14, 2021 11:41 Height - 47.00 in Weight - 84.8 lbs (HIGH) BSA - 1.09 sq.m BMI - 26.99 Temperature - 97.3 F (LOW) Pulse - 98 /min Respiration - 18 /min BP - 128/88 mm(hg) O2 Sat - 99 % Pain - 4 Fatigue - 4 Physical Examination: Constitutional - She looks pretty good generally, Eyes - Sclerae nonicteric. Conjunctivae clear, ENMT - No lesions noted in the oral cavity. There is a perforation in the right tympanic membrane, and the right TM is mildly erythematous. The left TM appears normal, Hematologic/Lymphatic - No cervical, clavicular, or axillary adenopathy, Respiratory - Lungs sound clear, Cardiovascular - Heart rhythm is regular. There is a II/ systolic murmur. There is no gallop or rub noted, Abdomen - Mildly distended. Liver and spleen are not enlarged. There is no abdominal mass noted and there is no inguinal adenopathy, Extremities - No edema, Neurologic - No focal neurologic deficits noted. Lab/Imaging: Test performed on Jun 14, 2021 08:23 Sodium 135 mmol/L Vitamin D (25-Hydroxy), Total > 100 ng/mL Potassium 3.6 mmol/L Chloride 102 mmol/L CO2 21 mmol/L Anion Gap 15.6 BUN 14 mg/dL Creatinine 0.4 mg/dL Cr Clearance (Est) 119.4900 mL/min eGFR 182.7 mL/min Glucose 93 mg/dL Osmolality - Calculated 280 mOsm/kg Calcium 9.4 mg/dL Protein, Total 6.5 g/dL Albumin 4.1 g/dL Globulin 2.4 g/dL Bilirubin, Total 0.2 mg/dL ALT (SGPT) 6 U/L AST (SGOT) 16 U/L Alkaline Phosphatase 88 IU/L WBC 8.4 10 3/uL RBC 4.01 10 6/uL HGB 12.2 g/dL HCT 37.8 % MCV 94.3 fl MCH 30.4 pg MCHC 32.3 g/dL RDW 13.6 % Platelet Count 384 10 3/cmm MPV 10.1 fL Neutrophils 5.15 10 3/uL Lymphocytes 2.5 10 3/uL Monocytes 0.6 10 3/uL Eosinophils 0.1 10 3/uL Basophils 0.1 10 3/uL Neutrophil % 61.1 % Lymphocyte % 29.3 % Monocyte % 7.3 % Eosinophil % 0.8 % Basophils % 0.7 % NRBC % 0 % Problem List: 1. Morquio type A (mucopolysaccharidosis IV-A). 2. She has chronic musculoskeletal pain. 3. She has recurrent episodes of hypokalemia. 4. She has required treatment for iron deficiency anemia. 5. Hypertension. 6. Mild asthma. 7. GERD. 8. Gastroparesis. 9. Degenerative arthritis. 10. Chronic migraine. 11. Chronic anxiety/depression. Problems Addressed with this Encounter and Plan: 1. Patient with Morquio type A (mucopolysaccharidosis IV-A). She began treatment with elosulfase genoveva in July 2014. She has tolerated the treatment well, and she had noted improvement in her muscle pain and in her energy/activity tolerance. Overall she had noticed a big difference with the treatment. She was diagnosed with COVID-19 virus infection in December 2020. She recovered uneventfully, but she did have significant weight loss with that illness. Recently her appetite has improved. Her overall clinical status has otherwise been stable. She will continue elosulfase genoveva 2 mg/kg by IV infusion weekly. She will be scheduled for a follow-up visit in 3 months. 2. She has chronic musculoskeletal pain. It has been managed adequately with hydrocodone/APAP. 3. She has had symptoms of right otitis media, and she has associated perforation of the right tympanic membrane. This apparently is chronic. She will be prescribed another course of Augmentin. Signed By: Leon Ramirez M.D. <<Signature on File>>
== END 2021-06-14 06:46 | disposition home or self-care (01) ==
LOC: ONCMED 06:45
PROVIDERS: PCP Nurse Practitioner Family; Visit Provider Internal Medicine Medical Oncology
DX: E00-E89 Endocrine, nutritional and metabolic diseases (principal); G89.29 Other chronic pain; M79.18 Myalgia, other site; D50.9 Iron deficiency anemia, unspecified; I10 Essential (primary) hypertension; J45.909 Unspecified asthma, uncomplicated; K21.9 Gastro-esophageal reflux disease without esophagitis; M13.80 Other specified arthritis, unspecified site; G43.909 Migraine, unspecified, not intractable, without status migrainosus; F41.8 Other specified anxiety disorders; Z86.16 Personal history of COVID-19; Z79.899 Other long term (current) drug therapy; Z79.891 Long term (current) use of opiate analgesic; H66.91 Otitis media, unspecified, right ear
CPT/HCPCS: 80053; 82306; 85025; 96365; 96366; 96375; 99215; J1322; J2405; J7040; J7050

== ENCOUNTER 2021-06-21 07:54 | Outpatient (CLI) | payer MEDICARE, MEDICAID, SELFPAY ==
[2021-06-21] MEDS: acetaminophen 325 mg Tablet 650 MG PO (08:30)
[2021-06-21] MEDS: ondansetron 2 mg/ML SDV 2 mL 8 MG IVP (08:30)
[2021-06-21] MEDS: diphenhydrAMINE 25 mg Capsule 50 MG PO (08:30)
[2021-06-21] MEDS: HYDROcodone-acetaminophen 10-325 mg Tablet 1 TAB PO ×2 (08:30→12:30)
[2021-06-21] MEDS: famotidine 20 mg Tablet PO (08:30)
[2021-06-21] MEDS: LORazepam 0.5 mg Tablet PO (09:00)
[2021-06-21] MEDS: sodium chloride 0.9% 500 ML 75 ML IV (10:12)
== END 2021-06-21 07:55 | disposition home or self-care (01) ==
LOC: ONCMED 07:55
PROVIDERS: PCP Nurse Practitioner Family; Visit Provider Internal Medicine Medical Oncology
DX: E00-E89 Endocrine, nutritional and metabolic diseases (principal); D50.9 Iron deficiency anemia, unspecified; Z79.899 Other long term (current) drug therapy
CPT/HCPCS: 96365; 96366; 96375; J1322; J2405; J7040; J7050

== ENCOUNTER 2021-06-28 07:52 | Outpatient (CLI) | payer MEDICARE, MEDICAID, SELFPAY ==
[2021-06-28] MEDS: ondansetron 2 mg/ML SDV 2 mL 8 MG IVP (08:18)
[2021-06-28] MEDS: diphenhydrAMINE 25 mg Capsule 50 MG PO (08:20)
[2021-06-28] MEDS: famotidine 20 mg Tablet PO (08:20)
[2021-06-28] MEDS: HYDROcodone-acetaminophen 10-325 mg Tablet 1 TAB PO (08:20)
[2021-06-28] MEDS: acetaminophen 325 mg Tablet 650 MG PO (08:20)
[2021-06-28] MEDS: LORazepam 0.5 mg Tablet PO (08:20)
[2021-06-28] MEDS: sodium chloride 0.9% 500 ML 75 ML IV (08:20)
[2021-06-28] MEDS: HYDROcodone-acetaminophen 5-325 mg Tablet 1 TAB PO (12:30)
== END 2021-06-28 07:53 | disposition home or self-care (01) ==
PROVIDERS: PCP Nurse Practitioner Family; Visit Provider Internal Medicine Medical Oncology
DX: E00-E89 Endocrine, nutritional and metabolic diseases (principal); Z79.899 Other long term (current) drug therapy
CPT/HCPCS: 96365; 96366; 96375; J1322; J2405; J7040; J7050

== ENCOUNTER 2021-07-04 06:00 | Outpatient (RCR) | payer MEDICARE, MEDICAID, SELFPAY | END 2021-08-03 23:59 | disposition home or self-care (01) | LOC: SPT 06:00 | PROVIDERS: PCP Nurse Practitioner Family; Visit Provider Orthopaedic Surgery | DX: E76.219 Morquio mucopolysaccharidoses, unspecified (principal) | CPT/HCPCS: 97140 ==

== ENCOUNTER 2021-07-05 08:10 | Outpatient (CLI) | payer MEDICARE, MEDICAID, SELFPAY ==
[2021-07-05] MEDS: HYDROcodone-acetaminophen 5-325 mg Tablet 1 TAB PO ×2 (08:45)
[2021-07-05] MEDS: acetaminophen 325 mg Tablet 650 MG PO (08:45)
[2021-07-05] MEDS: LORazepam 0.5 mg Tablet PO (08:45)
[2021-07-05] MEDS: sodium chloride 0.9% 500 ML 75 ML IV (08:45)
[2021-07-05] MEDS: famotidine 20 mg Tablet PO (08:45)
[2021-07-05] MEDS: diphenhydrAMINE 25 mg Capsule 50 MG PO (08:45)
[2021-07-05] MEDS: ondansetron 2 mg/ML SDV 2 mL 8 MG IVP (08:45)
== END 2021-07-05 08:11 | disposition home or self-care (01) ==
PROVIDERS: PCP Nurse Practitioner Family; Visit Provider Internal Medicine Medical Oncology
DX: E00-E89 Endocrine, nutritional and metabolic diseases (principal); Z79.899 Other long term (current) drug therapy; E76.219 Morquio mucopolysaccharidoses, unspecified
CPT/HCPCS: 96365; 96366; 96375; 97140; J1322; J2405; J7040; J7050

== ENCOUNTER 2021-07-12 08:00 | Outpatient (CLI) | payer MEDICARE, MEDICAID, SELFPAY ==
[2021-07-12 08:31] LABS: Hematocrit 37.4 % (37.0-47.0); Hemoglobin 12.2 g/dL (11.5-15.3); Mean Corpuscular HGB Conc 32.6 g/dL (30.0-36.0); Mean Corpuscular Hemoglobin 30.3 pg (28.0-34.0); Mean Platelet Volume 10.3 fL (7.4-10.4); Platelet Count 345 10^3/cmm (130-400); Red Blood Count 4.02 10^6/uL (4.1-5.3); Red Cell Distribution Width 14.1 % (12.1-15.1); White Blood Count 8.4 10^3/uL (4.0-10.0)
[2021-07-12] MEDS: HYDROcodone-acetaminophen 5-325 mg Tablet 1 TAB PO ×2 (08:34→12:36)
[2021-07-12] MEDS: acetaminophen 325 mg Tablet 650 MG PO (08:34)
[2021-07-12] MEDS: diphenhydrAMINE 25 mg Capsule 50 MG PO (08:34)
[2021-07-12] MEDS: famotidine 20 mg Tablet PO (08:34)
[2021-07-12 08:56] LABS: Alanine Aminotransferase 11 U/L (0-33); Albumin Level 4.4 g/dL (3.5-5.2); Alkaline Phosphatase 111 IU/L (35-105); Anion Gap 16.8 (5-19); Aspartate Amino Transferase 19 U/L (0-32); Blood Urea Nitrogen 15 mg/dL (6-20); Calcium 10.3 mg/dL (8.5-10.5); Carbon Dioxide 22 mmol/L (22-29); Chloride 103 mmol/L (98-107); Globulin 2.5 g/dL (1.3-4.6); Glomerular Filtration Rate 141.2 mL/min (90-130); Glucose 99 mg/dL (65-115); Osmolality Calculated 287 mOsm/kg (285-295); Potassium 3.8 mmol/L (3.5-5.1); Sodium 138 mmol/L (136-145); Total Bilirubin 0.2 mg/dL (0.15-1.2); Total Protein 6.9 g/dL (6.6-8.7)
[2021-07-12] MEDS: ondansetron 2 mg/ML SDV 2 mL 8 MG IVP (08:57)
[2021-07-12 09:04] LABS: Absolute Eosinophils 0.3 10^3/cmm (0.0-0.7); Eosinophils 4 %; Lymphocytes 29 %; Lymphocytes Absolute 2.4 10^3/cmm (1.2-3.4); Monocytes Absolute 0.7 10^3/cmm (0.1-0.6); Platelet Estimate Normal (Normal); Segmented Neutrophils 59 %; Total Cells Counted 100 (0-100)
[2021-07-12] MEDS: sodium chloride 0.9% 500 ML 75 ML IV (09:05)
== END 2021-07-12 08:01 | disposition home or self-care (01) ==
PROVIDERS: PCP Nurse Practitioner Family; Visit Provider Internal Medicine Medical Oncology
DX: E00-E89 Endocrine, nutritional and metabolic diseases (principal); Z79.899 Other long term (current) drug therapy
CPT/HCPCS: 80053; 85007; 85027; 96365; 96366; 96375; J1322; J2405; J7040; J7050

== ENCOUNTER 2021-07-19 07:47 | Outpatient (CLI) | payer MEDICARE, MEDICAID, SELFPAY ==
[2021-07-19] MEDS: famotidine 20 mg Tablet PO (08:34)
[2021-07-19] MEDS: acetaminophen 325 mg Tablet 650 MG PO (08:34)
[2021-07-19] MEDS: diphenhydrAMINE 25 mg Capsule 50 MG PO (08:34)
[2021-07-19] MEDS: HYDROcodone-acetaminophen 5-325 mg Tablet 1 TAB PO ×2 (08:34→13:33)
[2021-07-19] MEDS: sodium chloride 0.9% 500 ML 75 ML IV (08:39)
[2021-07-19] MEDS: ondansetron 2 mg/ML SDV 2 mL 8 MG IVP (08:39)
== END 2021-07-19 07:48 | disposition home or self-care (01) ==
PROVIDERS: PCP Nurse Practitioner Family; Visit Provider Internal Medicine Medical Oncology
DX: E00-E89 Endocrine, nutritional and metabolic diseases (principal); Z79.899 Other long term (current) drug therapy
CPT/HCPCS: 96365; 96366; 96375; J1322; J2405; J7040; J7050

== ENCOUNTER 2021-07-26 08:05 | Outpatient (CLI) | payer MEDICARE, MEDICAID, SELFPAY ==
[2021-07-26] MEDS: acetaminophen 325 mg Tablet 650 MG PO (08:20)
[2021-07-26] MEDS: sodium chloride 0.9% 250 ML 50 ML (08:20)
[2021-07-26] MEDS: diphenhydrAMINE 25 mg Capsule 50 MG PO (08:20)
[2021-07-26] MEDS: HYDROcodone-acetaminophen 5-325 mg Tablet 1 TAB PO (08:20)
[2021-07-26] MEDS: famotidine 20 mg Tablet PO (08:20)
[2021-07-26] MEDS: ondansetron 2 mg/ML SDV 2 mL 8 MG IVP (08:35)
[2021-07-26] MEDS: sodium chloride 0.9% 1,000 ML 999 ML IV (09:32)
== END 2021-07-26 08:06 | disposition home or self-care (01) ==
LOC: ONCMED 08:07
PROVIDERS: PCP Nurse Practitioner Family; Visit Provider Internal Medicine Medical Oncology
DX: E00-E89 Endocrine, nutritional and metabolic diseases (principal)
CPT/HCPCS: 96365; 96366; 96375; J1322; J2405; J7030; J7050

== ENCOUNTER 2021-08-02 07:59 | Outpatient (CLI) | payer MEDICARE, MEDICAID, SELFPAY ==
[2021-08-02] MEDS: HYDROcodone-acetaminophen 5-325 mg Tablet 1 TAB PO ×2 (08:23→13:16)
[2021-08-02] MEDS: famotidine 20 mg Tablet PO (08:23)
[2021-08-02] MEDS: diphenhydrAMINE 25 mg Capsule 50 MG PO (08:23)
[2021-08-02] MEDS: acetaminophen 325 mg Tablet 650 MG PO (08:23)
[2021-08-02] MEDS: ondansetron 2 mg/ML SDV 2 mL 8 MG IVP (08:53)
[2021-08-02] MEDS: sodium chloride 0.9% 500 ML 75 ML IV (09:05)
== END 2021-08-02 08:00 | disposition home or self-care (01) ==
PROVIDERS: PCP Nurse Practitioner Family; Visit Provider Internal Medicine Medical Oncology
DX: E00-E89 Endocrine, nutritional and metabolic diseases (principal)
CPT/HCPCS: 96365; 96366; 96375; J1322; J2405; J7040; J7050

== ENCOUNTER → 2021-08-03 14:08 | Outpatient (BNVA) | payer MEDICARE, MEDICAID, SELFPAY | PROVIDERS: PCP Nurse Practitioner Family; Visit Provider Specialist | DX: G43.711 Chronic migraine without aura, intractable, with status migrainosus (principal); F98.8 Other specified behavioral and emotional disorders with onset usually occurring in childhood and adolescence; R11.0 Nausea | CPT/HCPCS: 64615; 99213; 99214 ==

== ENCOUNTER 2021-08-04 06:00 | Outpatient (RCR) | payer MEDICARE, MEDICAID, SELFPAY | END 2021-09-02 23:59 | disposition home or self-care (01) | LOC: SPT 06:00 | PROVIDERS: PCP Nurse Practitioner Family; Visit Provider Orthopaedic Surgery | DX: E76.219 Morquio mucopolysaccharidoses, unspecified (principal) | CPT/HCPCS: 97140 ==

== ENCOUNTER 2021-08-09 08:10 | Outpatient (CLI) | payer MEDICARE, MEDICAID, SELFPAY ==
[2021-08-09] MEDS: diphenhydrAMINE 25 mg Capsule 50 MG PO (08:38)
[2021-08-09] MEDS: acetaminophen 325 mg Tablet 650 MG PO (08:38)
[2021-08-09] MEDS: HYDROcodone-acetaminophen 5-325 mg Tablet 1 TAB PO (08:38)
[2021-08-09] MEDS: famotidine 20 mg Tablet PO (08:38)
[2021-08-09] MEDS: sodium chloride 0.9% 500 ML 75 ML IV (08:40)
[2021-08-09] MEDS: ondansetron 2 mg/ML SDV 2 mL 8 MG IVP (08:40)
== END 2021-08-09 08:11 | disposition home or self-care (01) ==
PROVIDERS: PCP Nurse Practitioner Family; Visit Provider Internal Medicine Medical Oncology
DX: E76.219 Morquio mucopolysaccharidoses, unspecified (principal)
CPT/HCPCS: 96365; 96366; 96375; J1322; J2405; J7040; J7050

== ENCOUNTER 2021-08-23 08:07 | Outpatient (CLI) | payer MEDICARE, MEDICAID, SELFPAY ==
[2021-08-23] MEDS: acetaminophen 325 mg Tablet 650 MG PO (08:39)
[2021-08-23] MEDS: diphenhydrAMINE 25 mg Capsule 50 MG PO (08:39)
[2021-08-23] MEDS: HYDROcodone-acetaminophen 5-325 mg Tablet 1 TAB PO ×2 (08:39→12:48)
[2021-08-23] MEDS: sodium chloride 0.9% 500 ML 75 ML IV (08:39)
[2021-08-23] MEDS: famotidine 20 mg Tablet PO (08:39)
[2021-08-23] MEDS: ondansetron 2 mg/ML SDV 2 mL 8 MG IVP (08:42)
[2021-08-23] MEDS: LORazepam 0.5 mg Tablet PO (11:16)
== END 2021-08-23 08:08 | disposition home or self-care (01) ==
LOC: ONCMED 08:09
PROVIDERS: PCP Nurse Practitioner Family; Visit Provider Internal Medicine Medical Oncology
DX: E00-E89 Endocrine, nutritional and metabolic diseases (principal); D50.9 Iron deficiency anemia, unspecified; Z79.899 Other long term (current) drug therapy
CPT/HCPCS: 96365; 96366; 96375; J1322; J2405; J7040; J7050

== ENCOUNTER 2021-08-30 08:00 | Outpatient (CLI) | payer MEDICARE, MEDICAID, SELFPAY ==
[2021-08-30] MEDS: acetaminophen 325 mg Tablet 650 MG PO (08:41)
[2021-08-30] MEDS: diphenhydrAMINE 25 mg Capsule 50 MG PO (08:41)
[2021-08-30] MEDS: HYDROcodone-acetaminophen 5-325 mg Tablet 1 TAB PO ×2 (08:41→13:00)
[2021-08-30] MEDS: famotidine 20 mg Tablet PO (08:41)
[2021-08-30] MEDS: HYDROcodone-acetaminophen 10-325 mg Tablet 1 TAB PO (08:41)
[2021-08-30] MEDS: sodium chloride 0.9% 500 ML 75 ML IV (08:46)
[2021-08-30] MEDS: ondansetron 2 mg/ML SDV 2 mL 8 MG IVP (08:49)
[2021-08-30] MEDS: LORazepam 0.5 mg Tablet PO (13:00)
== END 2021-08-30 08:01 | disposition home or self-care (01) ==
PROVIDERS: PCP Nurse Practitioner Family; Visit Provider Internal Medicine Medical Oncology
DX: E00-E89 Endocrine, nutritional and metabolic diseases (principal); D50.9 Iron deficiency anemia, unspecified; Z79.899 Other long term (current) drug therapy
CPT/HCPCS: 96365; 96366; 96374; J1322; J2405; J7040; J7050

== ENCOUNTER 2021-09-27 08:00 | Oncology outpatient (recurring) (ONCR) | payer MEDICARE, MEDICAID, SELFPAY ==
[2021-09-06 08:51] VITALS: BMI 25.9
[2021-09-06 08:57] LABS: Basophils # 0.1 10^3/uL (0.0-0.1); Basophils % 0.8 %; Eosinophils # 0.2 10^3/uL (0.0-0.8); Eosinophils % 2.8 %; Hematocrit 40.4 % (37.0-47.0); Hemoglobin 12.9 g/dL (11.5-15.3); Lymphocytes # 2.6 10^3/uL (0.8-4.8); Lymphocytes % 43.1 %; Mean Corpuscular HGB Conc 31.9 g/dL (30.0-36.0); Mean Corpuscular Hemoglobin 30.2 pg (28.0-34.0); Mean Corpuscular Volume 94.6 fl (81-99); Mean Platelet Volume 10.3 fL (7.4-10.4); Monocytes # 0.6 10^3/uL (0.2-0.9); Monocytes % 9.4 %; Neutrophils # 2.65 10^3/uL (1.8-7.7); Neutrophils % 43.6 %; Nucleated Red Blood Cells % 0 %; Platelet Count 365 10^3/cmm (130-400); Red Blood Count 4.27 10^6/uL (4.1-5.3); Red Cell Distribution Width 14.8 % (12.1-15.1); White Blood Count 6.1 10^3/uL (4.0-10.0)
[2021-09-06 09:29] LABS: Alanine Aminotransferase 302 U/L (0-33); Alkaline Phosphatase 168 IU/L (35-105); Anion Gap 21.6 (5-19); Aspartate Amino Transferase 47 U/L (0-32); Blood Urea Nitrogen 13 mg/dL (6-20); Calcium 9.6 mg/dL (8.5-10.5); Carbon Dioxide 20 mmol/L (22-29); Chloride 100 mmol/L (98-107); Globulin 3.3 g/dL (1.3-4.6); Glomerular Filtration Rate 114.4 mL/min (90-130); Glucose 66 mg/dL (65-115); Osmolality Calculated 282 mOsm/kg (285-295); Potassium 4.6 mmol/L (3.5-5.1); Sodium 137 mmol/L (136-145); Total Bilirubin 0.6 mg/dL (0.15-1.2); Total Protein 7.3 g/dL (6.6-8.7)
[2021-09-06 09:44] LABS: 25 Hydroxy Vitamin D 64 ng/mL (30-100)
[2021-09-06 10:22] VITALS: RESP 18; O2SAT 99
[2021-09-06] MEDS: oxyCODONE 5 mg IR Tab/Cap PO (10:22)
[2021-09-06 10:36] VITALS: BP 136/98; PULSE 142; RESP 18; O2SAT 99
--- NOTE | 2021-09-13 09:00 | PC.NURSE ---
Patient had not shown up for treatment and this nurse called her. Patient let me know that she is not coming in this week as she is in [place].
[2021-09-20] VITALS (12 sets, daily range): BP systolic 127–156; BP diastolic 10–108; PULSE 80–123; RESP 18–20; TEMP 36.7–37.6; O2SAT 96–99; BMI 23.9
[2021-09-20 08:54] LABS: Alanine Aminotransferase 29 U/L (0-33); Albumin Level 4.4 g/dL (3.5-5.2); Alkaline Phosphatase 128 IU/L (35-105); Anion Gap 22.3 (5-19); Aspartate Amino Transferase 35 U/L (0-32); Blood Urea Nitrogen 9 mg/dL (6-20); Calcium 9.3 mg/dL (8.5-10.5); Carbon Dioxide 21 mmol/L (22-29); Chloride 100 mmol/L (98-107); Globulin 3.7 g/dL (1.3-4.6); Glomerular Filtration Rate 141.2 mL/min (90-130); Glucose 101 mg/dL (65-115); Osmolality Calculated 289 mOsm/kg (285-295); Potassium 3.3 mmol/L (3.5-5.1); Sodium 140 mmol/L (136-145); Total Bilirubin 0.2 mg/dL (0.15-1.2); Total Protein 8.1 g/dL (6.6-8.7)
[2021-09-20 09:08] LABS: Basophils # 0.1 10^3/uL (0.0-0.1); Basophils % 0.7 %; Eosinophils % 0.2 %; Hematocrit 43.6 % (37.0-47.0); Hemoglobin 14.3 g/dL (11.5-15.3); Lymphocytes # 2.9 10^3/uL (0.8-4.8); Lymphocytes % 35.3 %; Mean Corpuscular HGB Conc 32.8 g/dL (30.0-36.0); Mean Corpuscular Volume 91.4 fl (81-99); Mean Platelet Volume 11.5 fL (7.4-10.4); Monocytes # 0.5 10^3/uL (0.2-0.9); Monocytes % 5.9 %; Neutrophils # 4.81 10^3/uL (1.8-7.7); Neutrophils % 57.7 %; Nucleated Red Blood Cells % 0 %; Platelet Count 598 10^3/cmm (130-400); Red Blood Count 4.77 10^6/uL (4.1-5.3); Red Cell Distribution Width 13.9 % (12.1-15.1); White Blood Count 8.3 10^3/uL (4.0-10.0)
[2021-09-20] MEDS: sodium chloride 0.9% 500 ML 75 ML IV (09:35)
[2021-09-20] MEDS: acetaminophen 325 mg Tablet 650 MG PO (09:37)
[2021-09-20] MEDS: diphenhydrAMINE 25 mg Capsule 50 MG PO (09:38)
[2021-09-20] MEDS: famotidine 20 mg Tablet PO (09:39)
[2021-09-20] MEDS: oxyCODONE 5 mg IR Tab/Cap PO ×2 (09:40→13:47)
[2021-09-20] MEDS: ondansetron 2 mg/ML SDV 2 mL 8 MG IVP (09:44)
[2021-09-20] MEDS: LORazepam 0.5 mg Tablet PO (13:08)
[2021-09-27] VITALS (10 sets, daily range): BP systolic 142–165; BP diastolic 98–116; PULSE 80–128; RESP 18–20; TEMP 36.4–37.1; O2SAT 97–99; BMI 24.8
[2021-09-27 08:29] LABS: Basophils % 0.4 %; Eosinophils # 0.1 10^3/uL (0.0-0.8); Eosinophils % 1.4 %; Hematocrit 38.4 % (37.0-47.0); Hemoglobin 12.4 g/dL (11.5-15.3); Lymphocytes # 1.9 10^3/uL (0.8-4.8); Lymphocytes % 18.9 %; Mean Corpuscular HGB Conc 32.3 g/dL (30.0-36.0); Mean Corpuscular Hemoglobin 30.2 pg (28.0-34.0); Mean Corpuscular Volume 93.7 fl (81-99); Mean Platelet Volume 11.4 fL (7.4-10.4); Monocytes # 0.8 10^3/uL (0.2-0.9); Monocytes % 7.8 %; Neutrophils # 7.13 10^3/uL (1.8-7.7); Nucleated Red Blood Cells % 0 %; Platelet Count 272 10^3/cmm (130-400); Red Cell Distribution Width 14.4 % (12.1-15.1)
[2021-09-27 08:44] LABS: Alanine Aminotransferase 170 U/L (0-33); Albumin Level 3.9 g/dL (3.5-5.2); Alkaline Phosphatase 149 IU/L (35-105); Anion Gap 19.1 (5-19); Aspartate Amino Transferase 66 U/L (0-32); Blood Urea Nitrogen 7 mg/dL (6-20); Calcium 9.1 mg/dL (8.5-10.5); Carbon Dioxide 21 mmol/L (22-29); Chloride 100 mmol/L (98-107); Globulin 3.1 g/dL (1.3-4.6); Glomerular Filtration Rate 141.2 mL/min (90-130); Glucose 80 mg/dL (65-115); Osmolality Calculated 281 mOsm/kg (285-295); Potassium 3.1 mmol/L (3.5-5.1); Sodium 137 mmol/L (136-145); Total Bilirubin 0.4 mg/dL (0.15-1.2)
[2021-09-27] MEDS: sodium chloride 0.9% 500 ML 75 ML IV (10:58)
[2021-09-27] MEDS: oxyCODONE 5 mg IR Tab/Cap PO ×2 (11:00→15:40)
[2021-09-27] MEDS: diphenhydrAMINE 25 mg Capsule 50 MG PO (11:01)
[2021-09-27] MEDS: acetaminophen 325 mg Tablet 650 MG PO (11:02)
[2021-09-27] MEDS: famotidine 20 mg Tablet PO (11:02)
[2021-09-27] MEDS: ondansetron 2 mg/ML SDV 2 mL 8 MG IVP (11:05)
[2021-09-27] MEDS: LORazepam 0.5 mg Tablet PO (13:32)
== END 2021-10-03 23:59 | disposition home or self-care (01) ==
PROVIDERS: PCP Nurse Practitioner Family; Visit Provider Nurse Practitioner Family
DX: E00-E89 Endocrine, nutritional and metabolic diseases (principal); R74.01 Elevation of levels of liver transaminase levels; R74.8 Abnormal levels of other serum enzymes; G89.29 Other chronic pain; M79.18 Myalgia, other site; H66.90 Otitis media, unspecified, unspecified ear; Z79.891 Long term (current) use of opiate analgesic; Z79.2 Long term (current) use of antibiotics; Z79.1 Long term (current) use of non-steroidal anti-inflammatories (NSAID)
CPT/HCPCS: 36591; 80053; 82306; 85025; 96365; 96366; 96375; 99215; 99999; J1322; J2405; J7040; J7050

== ENCOUNTER → 2021-10-03 09:26 | Outpatient (BNVA) | payer MEDICARE, MEDICAID, SELFPAY | PROVIDERS: PCP Nurse Practitioner Family; Visit Provider Nurse Practitioner Family | DX: E76.219 Morquio mucopolysaccharidoses, unspecified (principal); R74.8 Abnormal levels of other serum enzymes | CPT/HCPCS: 80053; 85025 ==

== ENCOUNTER 2021-10-04 08:50 | Oncology outpatient (recurring) (ONCR) | payer MEDICARE, MEDICAID, SELFPAY ==
[2021-10-04] VITALS (9 sets, daily range): BP systolic 124–151; BP diastolic 85–108; PULSE 72–110; RESP 18–20; TEMP 36.2–36.9; O2SAT 98–100; BMI 24.5
[2021-10-04] MEDS: sodium chloride 0.9% 500 ML 75 ML IV (09:04)
[2021-10-04] MEDS: acetaminophen 325 mg Tablet 650 MG PO (09:05)
[2021-10-04] MEDS: diphenhydrAMINE 25 mg Capsule 50 MG PO (09:05)
[2021-10-04] MEDS: famotidine 20 mg Tablet PO (09:06)
[2021-10-04] MEDS: oxyCODONE 5 mg IR Tab/Cap PO ×2 (09:06→13:43)
[2021-10-04] MEDS: ondansetron 2 mg/ML SDV 2 mL 8 MG IVP (09:11)
== END 2021-10-11 11:12 | disposition home or self-care (01) ==
PROVIDERS: PCP Nurse Practitioner Family; Visit Provider Nurse Practitioner Family
DX: E00-E89 Endocrine, nutritional and metabolic diseases (principal); D50.9 Iron deficiency anemia, unspecified; Z79.899 Other long term (current) drug therapy; Z53.9 Procedure and treatment not carried out, unspecified reason
CPT/HCPCS: 96365; 96366; 96375; J1322; J2405; J7040; J7050

== ENCOUNTER 2021-10-18 08:31 | Oncology outpatient (recurring) (ONCR) | payer MEDICARE, MEDICAID, SELFPAY ==
--- NOTE | 2021-10-17 15:40 | PC.NURSE ---
Called to check on patient. Patient let this nurse know that she is feeling better and she let me know that she was having hallucinations and went to the ER in [place] and her Magnesium and Calcium was down. Patient plans on coming in tomorrow to have her treatment. This nurse let Dr. Ramirez know and he wants CBC, CMP, and Mag drawn.
[2021-10-18] VITALS (7 sets, daily range): BP systolic 104–124; BP diastolic 59–84; PULSE 46–100; RESP 18; TEMP 36.1–36.6; O2SAT 97–98
[2021-10-18 09:02] LABS: Basophils # 0.1 10^3/uL (0.0-0.1); Basophils % 0.8 %; Eosinophils # 0.1 10^3/uL (0.0-0.8); Eosinophils % 1.6 %; Hematocrit 37.9 % (37.0-47.0); Hemoglobin 12.6 g/dL (11.5-15.3); Lymphocytes # 2.9 10^3/uL (0.8-4.8); Lymphocytes % 31.8 %; Mean Corpuscular HGB Conc 33.2 g/dL (30.0-36.0); Mean Corpuscular Hemoglobin 29.8 pg (28.0-34.0); Mean Corpuscular Volume 89.6 fl (81-99); Mean Platelet Volume 11.8 fL (7.4-10.4); Monocytes # 0.5 10^3/uL (0.2-0.9); Monocytes % 5.8 %; Neutrophils # 5.36 10^3/uL (1.8-7.7); Neutrophils % 59.8 %; Nucleated Red Blood Cells % 0 %; Platelet Count 454 10^3/cmm (130-400); Red Blood Count 4.23 10^6/uL (4.1-5.3); Red Cell Distribution Width 13.4 % (12.1-15.1)
[2021-10-18 09:27] LABS: Alanine Aminotransferase 11 U/L (0-33); Albumin Level 3.8 g/dL (3.5-5.2); Alkaline Phosphatase 107 IU/L (35-105); Anion Gap 17.1 (5-19); Aspartate Amino Transferase 19 U/L (0-32); Blood Urea Nitrogen 9 mg/dL (6-20); Calcium 9.3 mg/dL (8.5-10.5); Carbon Dioxide 22 mmol/L (22-29); Chloride 97 mmol/L (98-107); Globulin 3.2 g/dL (1.3-4.6); Glomerular Filtration Rate 114.4 mL/min (90-130); Glucose 150 mg/dL (65-115); Magnesium 1.7 mg/dL (1.7-2.3); Osmolality Calculated 276 mOsm/kg (285-295); Potassium 4.1 mmol/L (3.5-5.1); Sodium 132 mmol/L (136-145); Total Bilirubin 0.4 mg/dL (0.15-1.2)
[2021-10-18] MEDS: acetaminophen 325 mg Tablet 650 MG PO (10:35)
[2021-10-18] MEDS: famotidine 20 mg Tablet PO (10:39)
[2021-10-18] MEDS: diphenhydrAMINE 25 mg Capsule 50 MG PO (10:40)
[2021-10-18] MEDS: ondansetron 2 mg/ML SDV 2 mL 8 MG IVP (10:41)
[2021-10-18] MEDS: sodium chloride 0.9% 500 ML 75 ML IV (10:42)
[2021-10-18] MEDS: oxyCODONE 5 mg IR Tab/Cap 10 MG PO (11:30)
--- NOTE | 2021-10-18 13:53 | PC.NURSE ---
Patient came in for lab draw which was drawn for cbc,cmp and magnesium with Dr Ramirez reviewing labs and approving orders for the Esulofase with the titration from 12ml every 15 minutes until 72ml/hr with no issues or concerns
== END 2021-10-20 09:53 | disposition home or self-care (01) ==
PROVIDERS: PCP Nurse Practitioner Family; Visit Provider Nurse Practitioner Family
DX: E00-E89 Endocrine, nutritional and metabolic diseases (principal); D50.9 Iron deficiency anemia, unspecified; Z79.899 Other long term (current) drug therapy
CPT/HCPCS: 80053; 83735; 85025; 96365; 96366; 96375; J1322; J2405; J7040; J7050

== ENCOUNTER 2021-11-01 08:00 | Oncology outpatient (recurring) (ONCR) | payer MEDICARE, MEDICAID, SELFPAY ==
[2021-10-25] VITALS (9 sets, daily range): BP systolic 100–143; BP diastolic 68–103; PULSE 74–118; RESP 18–20; TEMP 36.2–37.1; O2SAT 96–98; BMI 24.7
[2021-10-25] MEDS: acetaminophen 325 mg Tablet 650 MG PO (09:45)
[2021-10-25] MEDS: diphenhydrAMINE 25 mg Capsule 50 MG PO (09:45)
[2021-10-25] MEDS: famotidine 20 mg Tablet PO (09:45)
[2021-10-25] MEDS: oxyCODONE 5 mg IR Tab/Cap 10 MG PO (09:46)
[2021-10-25] MEDS: sodium chloride 0.9% 500 ML 75 ML IV (09:50)
[2021-10-25] MEDS: ondansetron 2 mg/ML SDV 2 mL 8 MG IVP (09:54)
[2021-10-25] MEDS: LORazepam 0.5 mg Tablet PO (11:35)
[2021-11-01] VITALS (8 sets, daily range): BP systolic 125–159; BP diastolic 76–98; PULSE 85–113; RESP 18; TEMP 36.5–37.1; O2SAT 91–96
[2021-11-01] MEDS: acetaminophen 325 mg Tablet 650 MG PO (08:38)
[2021-11-01] MEDS: diphenhydrAMINE 25 mg Capsule 50 MG PO (08:39)
[2021-11-01] MEDS: sodium chloride 0.9% 500 ML 75 ML IV (08:39)
[2021-11-01] MEDS: ondansetron 2 mg/ML SDV 2 mL 8 MG IVP (08:39)
[2021-11-01] MEDS: famotidine 20 mg Tablet PO (08:39)
[2021-11-01] MEDS: oxyCODONE 5 mg IR Tab/Cap 10 MG PO (08:54)
== END 2021-11-01 11:54 | disposition home or self-care (01) ==
PROVIDERS: PCP Nurse Practitioner Family; Visit Provider Nurse Practitioner Family
DX: E76.219 Morquio mucopolysaccharidoses, unspecified (principal); R74.8 Abnormal levels of other serum enzymes
CPT/HCPCS: 96365; 96366; 96375; J1322; J2405; J7040; J7050

== ENCOUNTER 2021-11-15 08:13 | Oncology outpatient (recurring) (ONCR) | payer MEDICARE, MEDICAID, SELFPAY ==
[2021-11-15 08:17] VITALS: BMI 24.5
[2021-11-15] MEDS: acetaminophen 325 mg Tablet 650 MG PO (08:49)
[2021-11-15] MEDS: diphenhydrAMINE 25 mg Capsule 50 MG PO (08:49)
[2021-11-15] MEDS: famotidine 20 mg Tablet PO (08:49)
[2021-11-15 08:50] VITALS: RESP 18; O2SAT 98
[2021-11-15] MEDS: oxyCODONE 5 mg IR Tab/Cap 10 MG PO (08:50)
[2021-11-15] MEDS: sodium chloride 0.9% 500 ML 75 ML IV (08:54)
[2021-11-15] MEDS: ondansetron 2 mg/ML SDV 2 mL 8 MG IVP (08:59)
[2021-11-15 09:22] VITALS: BP 116/80; PULSE 90; RESP 18; TEMP 36.9; O2SAT 98
[2021-11-15 09:40] VITALS: BP 109/73; PULSE 100; RESP 18; TEMP 36.2; O2SAT 97
[2021-11-15 10:30] VITALS: BP 122/88; PULSE 81; RESP 18; TEMP 36.6; O2SAT 99
[2021-11-15] MEDS: LORazepam 0.5 mg Tablet PO (10:50)
[2021-11-15 13:52] VITALS: BP 124/75; PULSE 104; RESP 18; TEMP 36.8; O2SAT 96
[2021-11-15 15:24] VITALS: BP 124/75; PULSE 104; RESP 18; TEMP 36.8; O2SAT 96
== END 2021-11-15 23:59 | disposition home or self-care (01) ==
PROVIDERS: PCP Nurse Practitioner Family; Visit Provider Nurse Practitioner Family
DX: Z79.899 Other long term (current) drug therapy (principal); E00-E89 Endocrine, nutritional and metabolic diseases; D50.8 Other iron deficiency anemias
CPT/HCPCS: 96365; 96366; 96375; J1322; J2405; J7040; J7050

== ENCOUNTER 2021-11-22 08:09 | Oncology outpatient (recurring) (ONCR) | payer MEDICARE, MEDICAID, SELFPAY ==
[2021-11-22] VITALS (9 sets, daily range): BP systolic 134–153; BP diastolic 96–108; PULSE 89–100; RESP 18; TEMP 35.8–36.9; O2SAT 97–100; BMI 24.7
[2021-11-22] MEDS: acetaminophen 325 mg Tablet 650 MG PO (09:01)
[2021-11-22] MEDS: oxyCODONE 5 mg IR Tab/Cap 10 MG PO (09:02)
[2021-11-22] MEDS: famotidine 20 mg Tablet PO (09:02)
[2021-11-22] MEDS: diphenhydrAMINE 25 mg Capsule 50 MG PO (09:02)
[2021-11-22] MEDS: sodium chloride 0.9% 500 ML 75 ML IV (09:10)
[2021-11-22] MEDS: ondansetron 2 mg/ML SDV 2 mL 8 MG IVP (09:11)
[2021-11-22] MEDS: LORazepam 0.5 mg Tablet PO (10:53)
== END 2021-11-23 09:30 | disposition home or self-care (01) ==
PROVIDERS: PCP Nurse Practitioner Family; Visit Provider Nurse Practitioner Family
DX: E00-E89 Endocrine, nutritional and metabolic diseases (principal); D50.9 Iron deficiency anemia, unspecified; Z79.899 Other long term (current) drug therapy; E76.219 Morquio mucopolysaccharidoses, unspecified; R74.8 Abnormal levels of other serum enzymes
CPT/HCPCS: 96365; 96366; 96375; J1322; J2405; J7040; J7050

== ENCOUNTER → 2021-11-23 15:14 | Outpatient (BNVA) | payer MEDICARE, MEDICAID, SELFPAY | PROVIDERS: PCP Nurse Practitioner Family; Visit Provider Specialist | DX: G43.711 Chronic migraine without aura, intractable, with status migrainosus (principal) | CPT/HCPCS: 64615; 96372; J0585; J1885 ==

== ENCOUNTER 2021-11-29 08:20 | Oncology outpatient (recurring) (ONCR) | payer MEDICARE, MEDICAID, SELFPAY ==
[2021-11-29] VITALS (8 sets, daily range): BP systolic 141–147; BP diastolic 96–117; PULSE 115–124; RESP 16–18; TEMP 36.8–37.4; O2SAT 96–99; BMI 24.2
[2021-11-29 08:54] LABS: Basophils % 0.6 %; Eosinophils # 0.1 10^3/uL (0.0-0.8); Eosinophils % 1.4 %; Hemoglobin 13.5 g/dL (11.5-15.3); Lymphocytes # 2.4 10^3/uL (0.8-4.8); Lymphocytes % 33.2 %; Mean Corpuscular HGB Conc 31.4 g/dL (30.0-36.0); Mean Corpuscular Hemoglobin 28.5 pg (28.0-34.0); Mean Corpuscular Volume 90.7 fl (81-99); Monocytes # 0.5 10^3/uL (0.2-0.9); Monocytes % 6.6 %; Neutrophils # 4.13 10^3/uL (1.8-7.7); Neutrophils % 57.8 %; Nucleated Red Blood Cells % 0 %; Platelet Count 302 10^3/cmm (130-400); Red Blood Count 4.74 10^6/uL (4.1-5.3); Red Cell Distribution Width 13.8 % (12.1-15.1); White Blood Count 7.1 10^3/uL (4.0-10.0)
[2021-11-29] MEDS: acetaminophen 325 mg Tablet 650 MG PO (08:58)
[2021-11-29] MEDS: sodium chloride 0.9% 500 ML 75 ML IV (08:58)
[2021-11-29] MEDS: famotidine 20 mg Tablet PO (08:59)
[2021-11-29] MEDS: diphenhydrAMINE 25 mg Capsule 50 MG PO (08:59)
[2021-11-29] MEDS: ondansetron 2 mg/ML SDV 2 mL 8 MG IVP (09:01)
[2021-11-29 09:18] LABS: Alanine Aminotransferase 8 U/L (0-33); Albumin Level 4.2 g/dL (3.5-5.2); Alkaline Phosphatase 105 IU/L (35-105); Anion Gap 18.8 (5-19); Aspartate Amino Transferase 15 U/L (0-32); Blood Urea Nitrogen 15 mg/dL (6-20); Calcium 9.4 mg/dL (8.5-10.5); Carbon Dioxide 21 mmol/L (22-29); Chloride 104 mmol/L (98-107); Globulin 2.9 g/dL (1.3-4.6); Glomerular Filtration Rate 95.8 mL/min (90-130); Glucose 104 mg/dL (65-115); Osmolality Calculated 291 mOsm/kg (285-295); Potassium 3.8 mmol/L (3.5-5.1); Sodium 140 mmol/L (136-145); Total Bilirubin 0.2 mg/dL (0.15-1.2); Total Protein 7.1 g/dL (6.6-8.7)
[2021-11-29] MEDS: oxyCODONE 5 mg IR Tab/Cap 10 MG PO (09:28)
[2021-11-29] MEDS: LORazepam 0.5 mg Tablet PO (11:40)
== END 2021-11-30 09:47 | disposition home or self-care (01) ==
PROVIDERS: Internal Medicine Medical Oncology; PCP Nurse Practitioner Family; Visit Provider Nurse Practitioner Family
DX: E00-E89 Endocrine, nutritional and metabolic diseases (principal); Z79.899 Other long term (current) drug therapy; Z51.11 Encounter for antineoplastic chemotherapy; M79.18 Myalgia, other site; G89.29 Other chronic pain; E76.219 Morquio mucopolysaccharidoses, unspecified
CPT/HCPCS: 80053; 85025; 96365; 96366; 96375; 99214; 99215; J1322; J2405; J7040; J7050

== ENCOUNTER 2021-12-06 08:07 | Oncology outpatient (recurring) (ONCR) | payer MEDICARE, MEDICAID, SELFPAY ==
[2021-12-06] MEDS: sodium chloride 0.9% 500 ML 100 ML IV (08:34)
[2021-12-06 08:35] VITALS: RESP 24
[2021-12-06] MEDS: oxyCODONE 5 mg IR Tab/Cap 10 MG PO (08:35)
[2021-12-06] MEDS: ondansetron 2 mg/ML SDV 2 mL 8 MG IVP (08:36)
[2021-12-06] MEDS: acetaminophen 325 mg Tablet 650 MG PO (08:36)
[2021-12-06] MEDS: famotidine 20 mg Tablet PO (08:36)
[2021-12-06] MEDS: diphenhydrAMINE 25 mg Capsule 50 MG PO (08:36)
[2021-12-06 09:20] VITALS: BP 159/123; PULSE 133; RESP 20; TEMP 36.8; O2SAT 97
[2021-12-06 09:35] VITALS: BP 149/123; PULSE 131; RESP 20; TEMP 36.6; O2SAT 96
[2021-12-06 09:50] VITALS: BP 163/119; PULSE 128; TEMP 36.6; O2SAT 96
[2021-12-06 10:05] VITALS: BP 160/121; PULSE 124; TEMP 36.9; O2SAT 96
[2021-12-06 10:20] VITALS: BP 161/109; PULSE 128; TEMP 37.2; O2SAT 97
[2021-12-06] MEDS: LORazepam 0.5 mg Tablet PO (10:32)
== END 2021-12-07 09:00 | disposition home or self-care (01) ==
PROVIDERS: PCP Nurse Practitioner Family; Visit Provider Nurse Practitioner Family
DX: E00-E89 Endocrine, nutritional and metabolic diseases (principal); D50.9 Iron deficiency anemia, unspecified; Z79.899 Other long term (current) drug therapy; R74.8 Abnormal levels of other serum enzymes
CPT/HCPCS: 96365; 96366; 96375; J1322; J2405; J7040; J7050

== ENCOUNTER 2021-12-13 07:22 | Oncology outpatient (recurring) (ONCR) | payer MEDICARE, MEDICAID, SELFPAY ==
[2021-12-13 08:09] VITALS: BMI 23.3
[2021-12-13 08:25] LABS: Basophils # 0.1 10^3/uL (0.0-0.1); Basophils % 0.4 %; Eosinophils % 0.1 %; Hematocrit 39.6 % (37.0-47.0); Lymphocytes # 2.9 10^3/uL (0.8-4.8); Lymphocytes % 16.8 %; Mean Corpuscular HGB Conc 32.8 g/dL (30.0-36.0); Mean Corpuscular Hemoglobin 28.4 pg (28.0-34.0); Mean Corpuscular Volume 86.5 fl (81-99); Mean Platelet Volume 10.9 fL (7.4-10.4); Monocytes # 0.9 10^3/uL (0.2-0.9); Monocytes % 5.2 %; Neutrophils # 13.27 10^3/uL (1.8-7.7); Nucleated Red Blood Cells % 0 %; Platelet Count 344 10^3/cmm (130-400); Red Blood Count 4.58 10^6/uL (4.1-5.3); Red Cell Distribution Width 14.4 % (12.1-15.1); White Blood Count 17.2 10^3/uL (4.0-10.0)
[2021-12-13] MEDS: sodium chloride 0.9% 500 ML 75 ML IV (08:54)
[2021-12-13] MEDS: acetaminophen 325 mg Tablet 650 MG PO (08:54)
[2021-12-13 08:55] VITALS: RESP 18; O2SAT 96
[2021-12-13] MEDS: diphenhydrAMINE 25 mg Capsule 50 MG PO (08:55)
[2021-12-13] MEDS: oxyCODONE 5 mg IR Tab/Cap PO (08:55)
[2021-12-13] MEDS: famotidine 20 mg Tablet PO (08:55)
[2021-12-13] MEDS: ondansetron 2 mg/ML SDV 2 mL 8 MG IVP (08:59)
[2021-12-13 09:10] VITALS: BP 113/72; PULSE 88; RESP 18; TEMP 36.4; O2SAT 96
[2021-12-13 09:15] LABS: Alanine Aminotransferase 9 U/L (0-33); Albumin Level 4.1 g/dL (3.5-5.2); Alkaline Phosphatase 108 IU/L (35-105); Anion Gap 28.5 (5-19); Aspartate Amino Transferase 19 U/L (0-32); Blood Urea Nitrogen 19 mg/dL (6-20); Calcium 9.6 mg/dL (8.5-10.5); Carbon Dioxide 16 mmol/L (22-29); Chloride 90 mmol/L (98-107); Globulin 2.9 g/dL (1.3-4.6); Glomerular Filtration Rate 51.4 mL/min (90-130); Glucose 69 mg/dL (65-115); Magnesium 1.9 mg/dL (1.7-2.3); Osmolality Calculated 265 mOsm/kg (285-295); Sodium 127 mmol/L (136-145); Total Bilirubin 0.5 mg/dL (0.15-1.2)
[2021-12-13 09:19] LABS: Potassium 7.5 mmol/L (3.5-5.1)
[2021-12-13 09:30] VITALS: BP 99/63; PULSE 71; RESP 18; TEMP 36.8; O2SAT 99
[2021-12-13 09:45] VITALS: BP 127/65; PULSE 68; RESP 18; TEMP 36.8; O2SAT 99
[2021-12-13 10:00] VITALS: BP 115/66; PULSE 77; RESP 16; TEMP 36.6; O2SAT 100
[2021-12-13 10:21] LABS: Potassium 7.3 mmol/L (3.5-5.1)
== END 2021-12-14 09:01 | disposition home or self-care (01) ==
PROVIDERS: Internal Medicine Medical Oncology; PCP Nurse Practitioner Family; Visit Provider Nurse Practitioner Family
DX: E00-E89 Endocrine, nutritional and metabolic diseases (principal); D50.9 Iron deficiency anemia, unspecified; Z79.899 Other long term (current) drug therapy; E76.219 Morquio mucopolysaccharidoses, unspecified; R74.8 Abnormal levels of other serum enzymes; N17.9 Acute kidney failure, unspecified; E87.5 Hyperkalemia
CPT/HCPCS: 36415; 36600; 71045; 80048; 80051; 80053; 80061; 81001; 82330; 82607; 82746; 82805; 83036; 83540; 83550; 83735; 84132; 84443; 85025; 93005; 96361; 96365; 96374; 96375; 99285; G0378; J1322; J1815; J1940; J2405; J3490; J7030; J7040; J7050

== ENCOUNTER 2021-12-13 10:42 | Observation (INO) | payer MEDICARE, MEDICAID, SELFPAY ==
[2021-12-13] VITALS (13 sets, daily range): BP systolic 119–174; BP diastolic 71–128; PULSE 70–140; RESP 15–26; TEMP 36.4–37.4; O2SAT 96–100; BMI 23.8
--- NOTE | 2021-12-13 11:34 | ECG_ITS ---
[facility] Test Date: 2021-12-13 Pat Name: Elisa Campbell Department: Room: Gender: Female Suture Winder Hand: : 1985 Requested By: Nestor Armendariz Order Number: [id number] Estrada MD: Bhakti Nicole M.D. Measurements Intervals [place] Rate: 67 P: 39 DE: 117 QRS: 45 QRSD: 89 T: 38 QT: 382 QTc: 406 Interpretive Statements SINUS RHYTHM WITH SINUS ARRHYTHMIA WITH SHORT DE INTERVAL Compared to ECG 04/24/2019 17:11:19 Short DE interval now present Sinus tachycardia no longer present ST (T wave) deviation no longer present Electronically Signed On 12-14-2021 19:06:12 CDT by Bhakti Nicole M.D. [email or web address] [id number] [email or web address]
--- NOTE | 2021-12-13 11:40 | W.ED.GENADLT ---
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 Patient had routine blood work that was performed which showed the patient had a potassium of 7.3. Patient had repeat blood work earlier today also showed potassium 7.3. Patient was told to come the emergency room. Patient has any shortness breath, any history of renal failure, decreased urinary output leg swelling or abdominal swelling last few days. 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 Onset:unknown Duration:ongoing Location:home Severity:severe Associated symptoms: Deny chest pain, dyspnea, nausea, rash, palpitations or vomiting Review of Systems Const: Denies: fever(s) or chills Eyes: Denies: change in vision ENMT: Denies: mouth pain Card: Denies: chest pain or palpitations Resp: Denies: dyspnea or non-productive cough GI: Denies: abdominal pain, nausea, vomiting or diarrhea : Denies: dysuria Musc: Denies: extremity pain Skin/Breast: Denies: rash or new lesions Neuro: Denies: weakness in extremities Psych: Reports: other (Normal mood) Carlos/Lymph: Denies: easy bruising PFSH ED PFSH: Medical History (Updated 12/06/21 @ 08:12 by Leon Ramirez MD) Anxiety and depression Asthma Chronic migraine Chronic musculoskeletal pain Gastroparesis History of pulmonary embolism Hypertension Mucopolysaccharidosis 4 Transaminitis History of transaminitis, presumed secondary to acetaminophen Surgical History (Updated 11/29/21 @ 16:41 by Leon Ramirez MD) History of spinal fusion In 2000 and in 2002 History of surgery on lower extremity (1998) Right leg surgery History of total left hip arthroplasty (12/2015) History of total right hip arthroplasty (03/2016) Port-A-Cath in place Family History Father Clotting disorder Hyperlipidemia Mother Hyperlipidemia Other Cancer Diabetes Hypertension Stroke Denies family history of CAD (coronary artery disease) Dementia Psychiatric illness Chronic kidney disease (CKD) Suicide Anesthesia complication Bleeding disorder Lung disease Social History Smoking and tobacco status: never smoked Second hand smoke exposure: Yes Alcohol intake: current Alcohol intake frequency: holidays/special occasions only History of recent travel: No Physical Exam Const: COMMON NORMALS: alert HENMT: COMMON NORMALS: atraumatic HEAD & SCALP: atraumatic MOUTH: moist mucous membranes not abnormal Eye: COMMON NORMALS: EOMs intact bilaterally and conjunctivae normal CONJUNCTIVA: Yes conjunctivae normal Neck/C-Spine: COMMON NORMALS: full ROM and supple Resp: COMMON NORMALS: normal respiratory effort and clear to auscultation bilaterally AUSCULTATION: clear to auscultation bilaterally Cardio: COMMON NORMALS: regular rate RATE: regular rate GI: COMMON NORMALS: Soft to palpation and non-tender PALPATION: Yes Soft to palpation Extremity: COMMON NORMALS: full ROM Neuro: SENSORIUM/ORIENTATION: Yes alert MOTOR EXAM: No Abnormal motor strength present and Other motor observations present (no focal motor deficits) Psych: COMMON NORMALS: speech normal SPEECH: Yes normal speech MOOD & AFFECT: Yes euthymic mood Course Vital Signs: Vital signs: Vital Signs Temperature 98.6 F 12/13/21 11:26 Pulse Rate 82 12/13/21 11:26 Respiratory Rate 15 12/13/21 11:26 Blood Pressure 119/71 12/13/21 11:26 Pulse Oximetry 98 12/13/21 12:[address] thod 12/13/21 12:14 [facility] - General Adult Medical Decision Making Patient is a 35-year-old female with history of Morquio syndrome presenting to the emergency room for evaluation of abnormal lab. She is hemodynamically stable without any focal findings on physical exam. EKG did not show any signs of hyperkalemia. Repeat potassium was 6.3 today. Creatinine of 1.25 from baseline 0.7. Patient is able to make urine. Patient has no signs of respiratory stress or volume overload. Patient received 80 mg of Lasix D50 and 10 units of regular insulin. Disposition: admission Lab Data : 12/13/21 11:45 12/13/21 11:45 Laboratory Results WBC 16.2 10^3/uL (4.0-10.0) H 12/13/21 11:45 RBC 4.51 10^6/uL (4.1-5.3) 12/13/21 11:45 Hgb 12.8 g/dL (11.5-15.3) 12/13/21 11:45 Hct 39.6 % (37.0-47.0) 12/13/21 11:45 MCV 87.8 fl (81-99) 12/13/21 11:45 MCH 28.4 pg (28.0-34.0) 12/13/21 11:45 MCHC 32.3 g/dL (30.0-36.0) 12/13/21 11:45 RDW 14.5 % (12.1-15.1) 12/13/21 11:45 Plt Count 335 10^3/cmm (130-400) 12/13/21 11:45 MPV 11.2 fL (7.4-10.4) H 12/13/21 11:45 Neut % (Auto) 74.2 % 12/13/21 11:45 Lymph % (Auto) 19.1 % 12/13/21 11:45 [place] % (Auto) 5.6 % 12/13/21 11:45 Eos % (Auto) 0.2 % 12/13/21 11:45 Baso % (Auto) 0.4 % 12/13/21 11:45 Neut # (Auto) 11.98 10^3/uL (1.8-7.7) H 12/13/21 11:45 Lymph # (Auto) 3.1 10^3/uL (0.8-4.8) 12/13/21 11:45 [place] # (Auto) 0.9 10^3/uL (0.2-0.9) 12/13/21 11:45 Eos # (Auto) 0.0 10^3/uL (0.0-0.8) 12/13/21 11:45 Baso # (Auto) 0.1 10^3/uL (0.0-0.1) 12/13/21 11:45 Nucleated RBC % (auto) 0 % 12/13/21 11:45 Nucleated RBCs # 0.0 /100WBC 12/13/21 11:45 Sodium 127 mmol/L (136-145) L 12/13/21 11:45 Potassium 6.3 mmol/L (3.5-5.1) H 12/13/21 11:45 Chloride 93 mmol/L (98-107) L 12/13/21 11:45 Carbon Dioxide 17 mmol/L (22-29) L 12/13/21 11:45 Anion Gap 23.3 (5-19) H 12/13/21 11:45 BUN 23 mg/dL (6-20) H 12/13/21 11:45 Creatinine 1.1 mg/dL (0.5-0.9) H 12/13/21 11:45 GFR Calculation 56.9 mL/min (90-130) L 12/13/21 11:45 Glucose 89 mg/dL (65-115) 12/13/21 11:45 Calculated Osmolality 267 mOsm/kg (285-295) L 12/13/21 11:45 Calcium 9.3 mg/dL (8.5-10.5) 12/13/21 11:45 Discharge Plan Discharge Condition: Stable Prescriptions: No Action medroxyprogesterone [Depo-Provera] 150 mg/mL suspension IM diphenhydramine HCl [Allergy (diphenhydramine)] 25 mg capsule 25 mg PO Q6H PRN erythromycin 250 mg tablet 250 mg PO QID lisinopril 2.5 mg tablet 2.5 mg PO DAILY potassium chloride 20 mEq tablet extended release 40 meq PO DAILY ondansetron HCl [Zofran] 4 mg tablet 4 mg PO Q8H Eliquis 5 mg tablet 2.5 mg PO DAILY meloxicam [Mobic] 7.5 mg tablet 7.5 mg PO BID furosemide [Lasix] 20 mg tablet 20 mg PO DAILY PRN albuterol 90 mcg/actuation aerosol inhalation PRN lorazepam [Ativan] 1 mg tablet 1 mg PO BID PRN Botox 100 unit recon soln SUBCUT PRN oxycodone 10 mg tablet 10 mg PO .5x per day PRN (Reason: pain) 30 Days Qty: 150 0RF potassium chloride 40 mEq/15 mL liquid 40 meq PO DAILY Qty: 473 2RF amoxicillin-pot clavulanate 875-125 mg tablet 1 tab PO Q12H Qty: 14 0RF venlafaxine 75 mg tablet 150 mg PO DAILY Qty: 60 3RF tizanidine 4 mg capsule 8 mg PO TID PRN (Reason: muscle spasticity) Qty: 180 2RF methylphenidate HCl [Concerta] 36 mg tablet extended release 24hr 36 mg PO DAILY 30 Days Qty: 30 0RF methylphenidate HCl [Concerta] 36 mg tablet extended release 24hr 36 mg PO DAILY 30 Days Qty: 30 0RF Rx Instructions: DO NOT FILL UNTIL 12/26/21 methylphenidate HCl [Concerta] 36 mg tablet extended release 24hr 36 mg PO DAILY 30 Days Qty: 30 0RF Rx Instructions: DO NOT FILL UNTIL 01/24/22 Referrals: Francine Singh [Primary Care Provider] - Coding Level of Care Code ED Nut Chopper for Chg Fwd Exam Comprehensive
[2021-12-13 11:58] LABS: Basophils # 0.1 10^3/uL (0.0-0.1); Basophils % 0.4 %; Eosinophils % 0.2 %; Hematocrit 39.6 % (37.0-47.0); Hemoglobin 12.8 g/dL (11.5-15.3); Lymphocytes # 3.1 10^3/uL (0.8-4.8); Lymphocytes % 19.1 %; Mean Corpuscular HGB Conc 32.3 g/dL (30.0-36.0); Mean Corpuscular Hemoglobin 28.4 pg (28.0-34.0); Mean Corpuscular Volume 87.8 fl (81-99); Mean Platelet Volume 11.2 fL (7.4-10.4); Monocytes # 0.9 10^3/uL (0.2-0.9); Monocytes % 5.6 %; Neutrophils # 11.98 10^3/uL (1.8-7.7); Neutrophils % 74.2 %; Nucleated Red Blood Cells % 0 %; Platelet Count 335 10^3/cmm (130-400); Red Blood Count 4.51 10^6/uL (4.1-5.3); Red Cell Distribution Width 14.5 % (12.1-15.1); White Blood Count 16.2 10^3/uL (4.0-10.0)
[2021-12-13 12:22] LABS: Anion Gap 23.3 (5-19); Blood Urea Nitrogen 23 mg/dL (6-20); Calcium 9.3 mg/dL (8.5-10.5); Carbon Dioxide 17 mmol/L (22-29); Chloride 93 mmol/L (98-107); Creatinine Clr Calc Pharmacy 40.2492; Glomerular Filtration Rate 56.9 mL/min (90-130); Glucose 89 mg/dL (65-115); Osmolality Calculated 267 mOsm/kg (285-295); Potassium 6.3 mmol/L (3.5-5.1); Sodium 127 mmol/L (136-145)
[2021-12-13] MEDS: FUROsemide 10 mg/mL SDV 10mL 80 MG IVP (12:43)
--- NOTE | 2021-12-13 12:48 | XRR_ITS ---
PROCEDURE INFORMATION: Exam: XR Chest Exam date and time: 12/13/2021 1:04 PM Age: 35 years old Clinical indication: Dyspnea TECHNIQUE: Imaging protocol: Radiologic exam of the chest. Views: 1 view. COMPARISON: CR Chest 1 [place] [id number] 04/24/2019 11:27 AM FINDINGS: Tubes, catheters and devices: A MediPort catheter is present with the tip projecting in the SVC. Lungs: Unremarkable. No consolidation. Pleural spaces: Unremarkable. No pleural effusion. No pneumothorax. Heart/Mediastinum: Unremarkable. No cardiomegaly. Bones/joints: Unremarkable. XR/XR chest 1V portable [id number] IMPRESSION: No significant cardiopulmonary abnormality.
[2021-12-13] MEDS: insulin regular-human 100 units/1 mL 10 UNIT IVP (13:11)
[2021-12-13] MEDS: dextrose 50% syringe 50 mL IVP (13:12)
--- NOTE | 2021-12-13 14:26 | PM.HP ---
Providers/Chief Complaint Primary Care Provider: Francine Singh Chief Complaint: abnormal labs History of Present Illness Elisa Campbell is a 35 year old female with past medical history of mucopolysaccharidosis type IV, ADD, who was sent in to the ER today from the oncology office as the regular blood work showed hyperkalemia. Usually patient has history of chronic hypokalemia for which she takes 80 mEq of potassium daily. In the ER repeat blood work showed a potassium of 6.3 with a creatinine of 1.1. On examination patient is lying comfortably in bed. Denies any nausea, vomiting, headache. Denies any episodes of fever, changes in medications, diarrhea, dysuria, decreased urination recently. Does complain of feeling weaker than usual. In the ER patient was given 80 mg of IV Lasix, D50 and 10 units of insulin. Review of Systems General: Reports: 10 or more systems reviewed and unremarkable except in HPI and below Const: Denies: fever(s), chills, body aches, change in appetite, change in weight, malaise, night sweats, diaphoresis, change in sleep pattern, daytime sleepiness or snoring Eyes: Denies: change in vision, blurry vision, photophobia, eye discomfort or eye discharge ENMT: Denies: throat pain, enlarged tonsils, hoarseness, mouth pain, oral sores, dry mouth, tinnitus, nasal congestion or post nasal drip Card: Denies: chest pain, palpitations, irregular heart rhythm, edema, swelling of feet/ankles, lightheadedness, syncope, pre-syncope, dyspnea on exertion, orthopnea, leg pain with exertion or acrocyanosis Resp: Denies: dyspnea, productive cough, non-productive cough, wheezing, stridor, pain on inspiration, change in phlegm color, hemoptysis or chest congestion GI: Denies: abdominal pain, nausea, vomiting, hematemesis, coffee ground emesis, dysphagia, heartburn, diarrhea, constipation, bloating, GI cramping, change in bowel habits, pain on defecation, hematochezia or melena : Denies: flank pain, dysuria, urinary frequency, urinary urgency, urinary hesitancy, nocturia or hematuria Musc: Denies: neck pain, back pain, extremity pain, joint pain, joint swelling, joint redness, joint stiffness or limited range of motion Neuro: Denies: headache(s), numbness in extremities, weakness in extremities, sensory changes, lack of coordination, difficulty walking, frequent falls, dizziness, vertigo, confusion, Slurred speech present, difficulty communicating thoughts or seizure-like activity Psych: Denies: anxiety, depression, mood swings, panic attacks, hopelessness or irritability Endo: Denies: polyuria, polydipsia, tired all the time, cold intolerance, excessive sweating, flushing or heat intolerance Carlos/Lymph: Denies: easy bruising or easy bleeding All/Imm: Denies: tongue swelling, facial swelling or acute wheezing Medications/Allergies Home Medications Medication Instructions Recorded Confirmed Last Taken Type diphenhydramine HCl 25 mg capsule 25 mg PO Q6H PRN Allergic Reaction 08/06/19 12/13/21 Unknown History (Allergy (diphenhydramine)) erythromycin 250 mg tablet 250 mg PO QID 08/06/19 12/13/21 12/12/21 History lisinopril 2.5 mg tablet 2.5 mg PO DAILY PRN Blood Pressure 08/06/19 12/13/21 Unknown History medroxyprogesterone 150 mg/mL 150 mg IM Q90D 08/06/19 12/13/21 Unknown History intramuscular suspension (Depo-Provera) apixaban 5 mg tablet (Eliquis) 2.5 mg PO BID 09/06/21 12/13/21 12/12/21 History furosemide 20 mg tablet (Lasix) 20 mg PO DAILY PRN Edema 09/06/21 12/13/21 Unknown History lorazepam 1 mg tablet (Ativan) 1 mg PO TID PRN Anxiety 09/06/21 12/13/21 Unknown History onabotulinumtoxinA 100 unit 100 unit SUBCUT Q30D migraines 09/06/21 12/13/21 Unknown History solution for injection (Botox) venlafaxine 75 mg tablet 150 mg PO DAILY #60 tabs 11/07/21 12/13/21 12/12/21 Rx tizanidine 4 mg capsule 8 mg PO TID PRN muscle spasticity 11/15/21 12/13/21 Unknown Rx #180 caps methylphenidate HCl 36 mg 36 mg PO DAILY 30 days #30 tabs 11/29/21 12/13/21 Unknown Rx tablet,extended release 24 hr (Concerta) methylphenidate HCl 36 mg 36 mg PO DAILY 30 days #30 tabs 11/29/21 12/13/21 Unknown Rx tablet,extended release 24 hr (Concerta) methylphenidate HCl 36 mg 36 mg PO DAILY 30 days #30 tabs 11/29/21 12/13/21 12/12/21 Rx tablet,extended release 24 hr (Concerta) oxycodone 10 mg tablet 10 mg PO .5x per day PRN pain 30 11/29/21 12/13/21 Unknown Rx days #150 tabs albuterol sulfate 90 mcg/actuation 2 puff inhalation Q6H PRN 12/13/21 12/13/21 Unknown History aerosol inhaler Shortness Of Breath meloxicam 7.5 mg tablet 7.5 mg PO BID 12/13/21 12/13/21 12/12/21 History potassium chloride 40 mEq/15 mL 40 meq PO DAILY PRN prn 12/13/21 12/13/21 12/12/21 History oral liquid Allergies Allergy/AdvReac Type Severity Reaction Status Date / Time azithromycin Allergy nausea and Verified 11/29/21 10:00 vomiting gabapentin Allergy slurred Verified 11/29/21 10:00 speech metoclopramide Allergy twitching Verified 11/29/21 10:00 prochlorperazine Allergy hallucinati Verified 11/29/21 10:00 ons tramadol Allergy seizure Verified 11/29/21 10:00 silk tape Allergy ALGY-Redness Uncoded 11/29/21 10:00 of Skin PFSH Acute PFSH: Medical History (Updated 12/13/21 @ 14:30 by Warren Carson MD) Anxiety and depression Asthma 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 Chronic migraine Chronic musculoskeletal pain Gastroparesis History of hip fracture History of pulmonary embolism Hypertension Mucopolysaccharidosis 4 Transaminitis History of transaminitis, presumed secondary to acetaminophen Surgical History (Updated 12/13/21 @ 14:30 by Warren Carson MD) History of neck surgery History of right hip replacement History of spinal fusion In 2000 and in 2002 History of surgery on lower extremity (1998) Right leg surgery History of total left hip arthroplasty (12/2015) History of total right hip arthroplasty (03/2016) Port-A-Cath in place Family History Father Clotting disorder Hyperlipidemia Mother Hyperlipidemia Other Cancer Diabetes Hypertension Stroke Denies family history of CAD (coronary artery disease) Dementia Psychiatric illness Chronic kidney disease (CKD) Suicide Anesthesia complication Bleeding disorder Lung disease Social History Smoking and tobacco status: never smoked Second hand smoke exposure: Yes Alcohol intake: current Alcohol intake frequency: holidays/special occasions only History of recent travel: No Vitals/I&O/Wt Last Vital Signs Temp 98.6 F 12/13/21 11:26 Pulse 88 12/13/21 13:00 Resp 20 H 12/13/21 13:00 BP 132/81 12/13/21 13:00 Pulse Ox 99 12/13/21 13:00 O2 Del Method 12/13/21 13:00 Weight last 48 hrs Weight 35.38 kg Physical Exam Narrative: General: No acute distress, lying comfortably in bed HEENT: PERRLA, pupils bilaterally equal and reactive Chest: Bilateral normal vesicular breath sounds, decreased air entry CVS: S1-S2 regular, no murmurs, no tachycardia, no gallops, no rubs Abdomen: Soft, nontender, no organomegaly, bowel sounds present, morbidly obese Neuro: No focal deficits, no facial deformity, AO x3, no focal deficit, moving all limbs Data : 12/13/21 11:45 12/13/21 11:45 A&P Assessment and plan (1) Acute kidney injury: Status: Acute (2) Hyperkalemia: Status: Acute (3) Mucopolysaccharidosis 4: Status: Acute Plan Acute kidney injury: Baseline creatinine around 0.6-0.7. Currently 1.1. Most likely combination of dehydration from poor oral intake, baseline lisinopril and on and off Lasix. For now start on normal saline at 50 cc/h. Patient did receive 80 mg of IV Lasix in the ER. Monitor input output strictly. Medical reconciliation done for nephrotoxic drugs. Hold off on lisinopril. Hyperkalemia: Patient received D50 and 10 units of insulin in the ER. 1 g of IV calcium. Repeat BMP every 6 hourly. Telemetry. Continue other chronic medications including methylphenidate, oxycodone, venlafaxine and tizanidine as per creatinine clearance. Full code. Regular diet. Eliquis will suffice for DVT prophylaxis. Protonix OPD prophylaxis Attestations Medical Necessity Statement*: Admission under observation for less than 2 midnights for hyperkalemia, acute kidney injury secondary to dehydration Time Spent in Patient Care: Greater than 35 minutes Coding Level of Care Code Acute Review Scheduling Coordinator for [facility] Fwd Diagnoses Acute kidney injury N17.9 Hyperkalemia E87.5 Mucopolysaccharidosis 4 E76.219
[2021-12-13] MEDS: calcium chloride 10% Syr 10 mL 1 GM IVP (14:39)
[2021-12-13] MEDS: sodium chloride 0.9% 1,000 ML 50 ML IV (14:40)
[2021-12-13 15:54] LABS: Thyroid Stimulating Hormone 2.24 uIU/mL (0.27-4.20)
[2021-12-13 16:04] LABS: Iron 108 ug/dL (37-145); Total Iron Binding Capacity 300 mcg/dl; Unsaturated Iron Binding 192 ug/dL (112-347); Vitamin B12 407 pg/mL (232-1245)
--- NOTE | 2021-12-13 16:09 | PC.NURSE ---
Report called to Ashley, patient admitting to 267
[2021-12-13 16:10] LABS: Add Urine Microscopic? YES; Bilirubin Urine Neg (Negative); Blood Urine Trace (Negative); Glucose Urine UA Norm (Normal); Ketones Urine Negative (Negative); Leukocyte Esterase Urine Negative (Negative); Nitrate Urine Negative (Negative); Protein Urine Neg (Negative); Urine Appearance Clear (CLEAR); Urine Color Straw (Yellow); Urobilinogen Urine Norm (Negative); pH Urine 5 (5-7)
[2021-12-13] MEDS: famotidine 20 mg Tablet PO (17:07)
[2021-12-13] MEDS: oxyCODONE 5 mg IR Tab/Cap 10 MG PO ×2 (17:09→23:10)
[2021-12-13 18:13] LABS: Anion Gap 21.5 (5-19); Blood Urea Nitrogen 21 mg/dL (6-20); Calcium 10.3 mg/dL (8.5-10.5); Carbon Dioxide 22 mmol/L (22-29); Chloride 93 mmol/L (98-107); Glomerular Filtration Rate 63.5 mL/min (90-130); Glucose 89 mg/dL (65-115); Osmolality Calculated 276 mOsm/kg (285-295); Potassium 4.5 mmol/L (3.5-5.1); Sodium 132 mmol/L (136-145)
[2021-12-13 19:17] LABS: Folate Level 11.8 ng/mL (4.8-37.3)
[2021-12-13] MEDS: LORazepam 1 mg Tablet PO (19:59)
[2021-12-13] MEDS: metoprolol tartrate 25 mg Tablet 12.5 MG PO (21:18)
[2021-12-13] MEDS: tizanidine 4 mg Tablet 2 MG PO (21:18)
[2021-12-13] MEDS: apixaban 5 mg Tablet 2.5 MG PO (21:18)
--- NOTE | 2021-12-13 23:03 | ECG_ITS ---
[facility] Test Date: 2021-12-13 Pat Name: Elisa Campbell Department: Room: 267 Gender: Female Physicist Astrophysics: : 1985 Requested By: Ravi Arceo Order Number: [id number] Sean MD: Bhakti Nicole M.D. Measurements Intervals [place] Rate: 102 P: 41 LA: 100 QRS: 37 QRSD: 75 T: 53 QT: 270 QTc: 353 Interpretive Statements SINUS TACHYCARDIA WITH SHORT LA INTERVAL NONSPECIFIC T-WAVE ABNORMALITY ABNORMAL RHYTHM ECG Compared to ECG 12/13/2021 12:00:06 T-wave abnormality now present Sinus rhythm no longer present Sinus arrhythmia no longer present Electronically Signed On 12-14-2021 18:41:30 CDT by Bhakti Nicole M.D. [email or web address]
[2021-12-13] MEDS: cloNIDine 0.1 mg Tablet PO (23:09)
[2021-12-14] VITALS (8 sets, daily range): BP systolic 120–178; BP diastolic 78–109; PULSE 96–111; RESP 12–18; TEMP 36.6–36.9; O2SAT 96–98
[2021-12-14] MEDS: oxyCODONE 5 mg IR Tab/Cap 10 MG PO ×2 (04:36→10:32)
[2021-12-14] MEDS: LORazepam 1 mg Tablet PO (04:40)
[2021-12-14 05:13] LABS: Basophils # 0.1 10^3/uL (0.0-0.1); Basophils % 0.7 %; Eosinophils # 0.2 10^3/uL (0.0-0.8); Eosinophils % 1.6 %; Hematocrit 39.2 % (37.0-47.0); Hemoglobin 12.4 g/dL (11.5-15.3); Lymphocytes # 3.2 10^3/uL (0.8-4.8); Lymphocytes % 27.2 %; Mean Corpuscular HGB Conc 31.6 g/dL (30.0-36.0); Mean Corpuscular Volume 88.5 fl (81-99); Mean Platelet Volume 11.4 fL (7.4-10.4); Monocytes # 0.8 10^3/uL (0.2-0.9); Monocytes % 6.5 %; Neutrophils # 7.42 10^3/uL (1.8-7.7); Neutrophils % 63.4 %; Nucleated Red Blood Cells % 0 %; Platelet Count 300 10^3/cmm (130-400); Red Blood Count 4.43 10^6/uL (4.1-5.3); Red Cell Distribution Width 14.5 % (12.1-15.1); White Blood Count 11.7 10^3/uL (4.0-10.0)
[2021-12-14 05:34] LABS: Estmated Average Glucose 88; Hemoglobin A1C 4.7 % (4.0-6.0)
[2021-12-14 05:44] LABS: Alanine Aminotransferase 11 U/L (0-33); Albumin Level 3.8 g/dL (3.5-5.2); Alkaline Phosphatase 104 IU/L (35-105); Anion Gap 16.3 (5-19); Aspartate Amino Transferase 21 U/L (0-32); Blood Urea Nitrogen 21 mg/dL (6-20); Calcium 8.8 mg/dL (8.5-10.5); Carbon Dioxide 25 mmol/L (22-29); Chloride 101 mmol/L (98-107); Chol HDL Ratio 3.28 mg/dL (0.0-4.40); Cholesterol 190 mg/dL (0-200); Globulin 2.5 g/dL (1.3-4.6); Glomerular Filtration Rate 71.7 mL/min (90-130); Glucose 88 mg/dL (65-115); HDL Cholesterol 58 mg/dL (60-100); LDL Cholesterol Calculated 107 mg/dL (50-129); Osmolality Calculated 288 mOsm/kg (285-295); Potassium 4.3 mmol/L (3.5-5.1); Sodium 138 mmol/L (136-145); Total Bilirubin 0.2 mg/dL (0.15-1.2); Total Protein 6.3 g/dL (6.6-8.7); Triglycerides 127 mg/dL (0-150); VLDL Cholestrol Calculation 25 mg/dL (0-30)
--- NOTE | 2021-12-14 09:31 | P.DS_ITS ---
Discharge Providers Date of Admission: 12/13/21 12:46 Date of Discharge: December 14, 2021 Attending Provider at Admission: Warren Carson MD Attending Provider at Discharge: Warren Carson MD Primary Care Provider: Francine Singh Diagnoses at Discharge Discharge Diagnosis (1) Acute kidney injury: Status: Acute (2) Hyperkalemia: Status: Acute (3) Mucopolysaccharidosis 4: Status: Acute Reason for Visit Reason for Visit: abnormal labs Hospital Course Hospital Course Elisa Campbell is a 35 year old female with past medical history of mucopolysaccharidosis type IV, ADD, who was sent in to the ER today from the oncology office as the regular blood work showed hyperkalemia.? Usually patient has history of chronic hypokalemia for which she takes 80 mEq of potassium daily.? In the ER repeat blood work showed a potassium of 6.3 with a creatinine of 1.1. On examination patient is lying comfortably in bed.? Denies any nausea, vomiting, headache.? Denies any episodes of fever, changes in medications, diarrhea, dysuria, decreased urination recently.? Does complain of feeling weaker than usual. In the ER patient was given 80 mg of IV Lasix, D50 and 10 units of insulin. Patient admitted to hospital further evaluation and management of hyperkalemia along with acute kidney injury. It is believed her KARRIE is from poor oral intake along with use of as needed diuretic and potassium, lisinopril. She is started on gentle IV hydration along with cocktail treatment for hyperkalemia. She responded well to the treatment and her KARRIE and hyperkalemia has resolved. She is been discharged hemodynamic stable condition to have her blood work repeated in 1 week. She is asked to not take her as needed lisinopril, Lasix, potassium till she has repeat blood work. She is advised not to take bananas or avocados. She is advised to maintain oral hydration with at least 2 L of liquid daily. She is asked to avoid energy drinks including Gatorade. Physical Exam Narrative: General: No acute distress, lying comfortably in bed HEENT: PERRLA, pupils bilaterally equal and reactive Chest: Bilateral normal vesicular breath sounds, decreased air entry CVS: S1-S2 regular, no murmurs, no tachycardia, no gallops, no rubs Abdomen: Soft, nontender, no organomegaly, bowel sounds present, morbidly obese Neuro: No focal deficits, no facial deformity, AO x3, no focal deficit, moving all limbs Discharge Data Studies Completed and Pending Completed Studies During Hospitalization Category Date Time Status XR chest 1V portable [id number] Stat Exams 12/13/21 12:48 Completed Pending at discharge Category Date Time Status ABG FULL [Arterial Blood Gas Full] Stat Lab 12/13/21 12:50 Received Radiology Impressions Chest X-Ray 12/13/21 12:48 IMPRESSION: No significant cardiopulmonary abnormality. Laboratory Results WBC 11.7 10^3/uL (4.0-10.0) H 12/14/21 04:57 RBC 4.43 10^6/uL (4.1-5.3) 12/14/21 04:57 Hgb 12.4 g/dL (11.5-15.3) 12/14/21 04:57 Hct 39.2 % (37.0-47.0) 12/14/21 04:57 MCV 88.5 fl (81-99) 12/14/21 04:57 MCH 28.0 pg (28.0-34.0) 12/14/21 04:57 MCHC 31.6 g/dL (30.0-36.0) 12/14/21 04:57 RDW 14.5 % (12.1-15.1) 12/14/21 04:57 Plt Count 300 10^3/cmm (130-400) 12/14/21 04:57 MPV 11.4 fL (7.4-10.4) H 12/14/21 04:57 Neut % (Auto) 63.4 % 12/14/21 04:57 Lymph % (Auto) 27.2 % 12/14/21 04:57 Taylor % (Auto) 6.5 % 12/14/21 04:57 Eos % (Auto) 1.6 % 12/14/21 04:57 Baso % (Auto) 0.7 % 12/14/21 04:57 Neut # (Auto) 7.42 10^3/uL (1.8-7.7) 12/14/21 04:57 Lymph # (Auto) 3.2 10^3/uL (0.8-4.8) 12/14/21 04:57 Taylor # (Auto) 0.8 10^3/uL (0.2-0.9) 12/14/21 04:57 Eos # (Auto) 0.2 10^3/uL (0.0-0.8) 12/14/21 04:57 Baso # (Auto) 0.1 10^3/uL (0.0-0.1) 12/14/21 04:57 Nucleated RBC % (auto) 0 % 12/14/21 04:57 Nucleated RBCs # 0.0 /100WBC 12/14/21 04:57 Sodium 138 mmol/L (136-145) 12/14/21 04:57 Potassium 4.3 mmol/L (3.5-5.1) 12/14/21 04:57 Chloride 101 mmol/L (98-107) 12/14/21 04:57 Carbon Dioxide 25 mmol/L (22-29) 12/14/21 04:57 Anion Gap 16.3 (5-19) 12/14/21 04:57 BUN 21 mg/dL (6-20) H 12/14/21 04:57 Creatinine 0.9 mg/dL (0.5-0.9) 12/14/21 04:57 GFR Calculation 71.7 mL/min (90-130) L 12/14/21 04:57 Glucose 88 mg/dL (65-115) 12/14/21 04:57 Estimat Average Glucose 88 12/14/21 04:57 Hemoglobin A1c 4.7 % (4.0-6.0) 12/14/21 04:57 Calculated Osmolality 288 mOsm/kg (285-295) 12/14/21 04:57 Calcium 8.8 mg/dL (8.5-10.5) 12/14/21 04:57 Iron 108 ug/dL (37-145) 12/13/21 09:45 TIBC 300 mcg/dl 12/13/21 09:45 % Saturation 36.0 % (20-50) 12/13/21 09:45 Unsat Iron Binding 192 ug/dL (112-347) 12/13/21 09:45 Total Bilirubin 0.2 mg/dL (0.15-1.2) 12/14/21 04:57 AST 21 U/L (0-32) 12/14/21 04:57 ALT 11 U/L (0-33) 12/14/21 04:57 Alkaline Phosphatase 104 IU/L (35-105) 12/14/21 04:57 Total Protein 6.3 g/dL (6.6-8.7) L 12/14/21 04:57 Albumin 3.8 g/dL (3.5-5.2) 12/14/21 04:57 Globulin 2.5 g/dL (1.3-4.6) 12/14/21 04:57 Triglycerides 127 mg/dL (0-150) 12/14/21 04:57 Cholesterol 190 mg/dL (0-200) 12/14/21 04:57 LDL Cholesterol, Calc 107 mg/dL (50-129) 12/14/21 04:57 Total VLDL Cholesterol 25 mg/dL (0-30) 12/14/21 04:57 HDL Cholesterol 58 mg/dL (60-100) L 12/14/21 04:57 Cholesterol/HDL Ratio 3.28 mg/dL (0.0-4.40) 12/14/21 04:57 Vitamin B12 407 pg/mL (232-1245) 12/13/21 09:45 Folate 11.8 ng/mL (4.8-37.3) 12/13/21 17:24 TSH 2.24 uIU/mL (0.27-4.20) 12/13/21 11:45 Urine Color Straw (Yellow) 12/13/21 15:24 Urine Appearance Clear (CLEAR) 12/13/21 15:24 Urine pH 5 (5-7) 12/13/21 15:24 Ur Specific [place] 1.010 (1.005-1.030) 12/13/21 15:24 Urine Protein Neg (Negative) 12/13/21 15:24 Urine Glucose (UA) Norm (Normal) 12/13/21 15:24 Urine Ketones Negative (Negative) 12/13/21 15:24 Urine Blood Trace (Negative) H 12/13/21 15:24 Urine Nitrate Negative (Negative) 12/13/21 15:24 Urine Bilirubin Neg (Negative) 12/13/21 15:24 Urine Urobilinogen Norm mg/dL (Negative) 12/13/21 15:24 Ur Leukocyte Esterase Negative (Negative) 12/13/21 15:24 Urine RBC None /hpf (0-2) 12/13/21 15:24 Urine WBC None /hpf (0-5) 12/13/21 15:24 Ur Squamous Epith Cells None /hpf (0-5) 12/13/21 15:24 Amorphous Sediment Not Reportable 12/13/21 15:24 Urine Bacteria None /hpf (NONE) 12/13/21 15:24 Vitals Last Vital Signs Temp 98 F 12/14/21 07:55 Pulse 107 H 12/14/21 07:55 Resp 16 12/14/21 07:55 BP 147/99 12/14/21 07:55 Pulse Ox 97 12/14/21 07:55 O2 Del Method 12/14/21 06:38 Discharge Plan Discharge Patient Disposition: Home Condition: Stable Prescriptions: Continued medroxyprogesterone [Depo-Provera] 150 mg/mL suspension 150 mg IM Q90D diphenhydramine HCl [Allergy (diphenhydramine)] 25 mg capsule 25 mg PO Q6H PRN (Reason: Allergic Reaction) erythromycin 250 mg tablet 250 mg PO QID lisinopril 2.5 mg tablet 2.5 mg PO DAILY PRN (Reason: Blood Pressure) Eliquis 5 mg tablet 2.5 mg PO BID furosemide [Lasix] 20 mg tablet 20 mg PO DAILY PRN (Reason: Edema) lorazepam [Ativan] 1 mg tablet 1 mg PO TID PRN (Reason: Anxiety) Botox 100 unit recon soln 100 unit SUBCUT Q30D oxycodone 10 mg tablet 10 mg PO .5x per day PRN (Reason: pain) 30 Days Qty: 150 0RF venlafaxine 75 mg tablet 150 mg PO DAILY Qty: 60 3RF tizanidine 4 mg capsule 8 mg PO TID PRN (Reason: muscle spasticity) Qty: 180 2RF methylphenidate HCl [Concerta] 36 mg tablet extended release 24hr 36 mg PO DAILY 30 Days Qty: 30 0RF methylphenidate HCl [Concerta] 36 mg tablet extended release 24hr 36 mg PO DAILY 30 Days Qty: 30 0RF Rx Instructions: DO NOT FILL UNTIL 12/26/21 methylphenidate HCl [Concerta] 36 mg tablet extended release 24hr 36 mg PO DAILY 30 Days Qty: 30 0RF Rx Instructions: DO NOT FILL UNTIL 01/24/22 albuterol sulfate 90 mcg/actuation Hfa Aerosol Inhaler 2 puff INHALATION Q6H PRN (Reason: Shortness Of Breath) potassium chloride 40 mEq/15 mL liquid 40 meq PO DAILY PRN (Reason: prn) Held meloxicam 7.5 mg Tablet 7.5 mg PO BID Hold Instructions: Resume on 01/03/22. Discharge Orders: Discharge Order (Routine); Ordered 12/14/21 Ordered By: Warren Carson Referrals: Francine Singh [Primary Care Provider] - 12/19/21 1:00 pm (Please call [phone] if you have any questions or concerns. Thank you.) Patient Instructions: Acute Kidney Injury (GEN), Hyperkalemia (GEN), Opioid Safety Activity Restrictions/Additional Instructions: Please maintain hydration with up to 2 L of fluid daily. Please do not take your as needed Lasix, lisinopril or potassium. Please have repeat blood work done in 1 week. Discharge Attestations Time Spent in Discharge Care*: greater than 30 min Specific Discharge Activities: educating patient, discussing with pcp/other providers, discussing with case finisher/social workers/dc planners, documenting/other paperwork and evaluating patient/reviewing data Status at Discharge: Cognitive status at discharge: cognitively intact , Behavioral status at discharge: cooperative , Functional status at discharge: other assisted ambulation , Overall status at discharge: patient is back to baseline Quality Metrics Clinical Quality Measures [ No reported AMI, CVA or VTE this stay] Coding Level of Care Code Acute Chg FW DC note Diagnoses Acute kidney injury N17.9 Hyperkalemia E87.5 Mucopolysaccharidosis 4 E76.219
--- NOTE | 2021-12-14 10:23 | PC.CHAP ---
Pastoral Care Encounter/Spiritual Assessment Type of Contact [] Declined design tech visit [] Patient/Family/Request visit [] Outpatient visit [] Follow-up visit [] Physician referral [] Code/Alert [x] Routine visit [] Staff referral [] Actively dying [] Patient sleeping [] Family support [] [] Out of room [] Palliative care [] [x] Receiving care in room [] Pre-surgical visit [] Trauma [x] Long length of stay [] ICU visit [] Other: Relational/Emotional Strength [] Patient feels connected with others/family/visitors/staff [x] Distress [] Loneliness/isolation [] Abandonment Spirituality of Patient [] Person of Shae [] Attends Anabaptism of their Shae [] Believes in Prayer [] Reads Bible or Mosque materials [] There are Spiritual issues to be addressed Front Desk Representative Interventions [] Prayer [] Active listening [] Non-anxious presence [] Spiritual/emotional support [] Crisis/trauma care [] Spiritual counseling [] Bereavement support [] Provided bereavement packet [] Provided Bible/devotional materials [] Provided toy/stuffed animal, coloring book to patient or family member [] Provided Communion [] Anointing/[place] [] Salvation [] Completed spiritual assessment [] Other: Impact on Illness or Injury [] Angry [] Fearful [x] Anxious [] Often cries [] Exhaustion [x] Unable to work [] Unable to attend mu-ism [] Unable to walk/stand [] Unable to read [] Unable to drive [] Unable to eat/drink [] Unable to sleep [] Unable to be with family [] Patient intubated [] Other: Summary unable to coomunicate negative feelings doesn't know about her health Time spent with patient 5 mins
[2021-12-14] MEDS: famotidine 20 mg Tablet PO (10:25)
[2021-12-14] MEDS: metoprolol tartrate 25 mg Tablet 12.5 MG PO (10:26)
[2021-12-14] MEDS: venlafaxine 75 mg Tablet PO (10:26)
[2021-12-14] MEDS: docusate sodium 100 mg Capsule PO (10:26)
[2021-12-14] MEDS: cloNIDine 0.1 mg Tablet PO (10:26)
[2021-12-14] MEDS: apixaban 5 mg Tablet 2.5 MG PO (10:26)
[2023-02-06 08:35] LABS: ABG PCO2 28.5 mmHg (35-45); ABG PH Result 7.44 (7.35-7.45); Base Excess ABG -3.9 mmol/L (-2.0-2.0); HCO3 ABG 19.1 mmol/L (22-26); Oxygen Saturation ABG 98.4; PO2 ABG 93.8 mmHg (80.0-100.0); Potassium Level - ABG 5.6 mmol/L (3.5-5.0)
[2023-02-06 08:36] LABS: Blood Gas Sample Type ARTERIAL; Oxygen Device room air
[2023-02-06 08:37] LABS: Blood Gas Sample Site Brachial, right; HGB O2 Sat 96.6 % (95-100); Ionized Calcium Level - ABG 1.2 mmol/L (1.1-1.4); Methemoglobin 0.8 % (0.4-1.5)
== END 2021-12-14 16:29 | disposition home or self-care (01) ==
LOC: ER 13:20 → MEDSURG 15:40
PROVIDERS: Emergency Medicine; Admitting Provider Student in an Organized Health Care Education/Training Program; Emergency Provider Emergency Medicine; PCP Nurse Practitioner Family; Visit Provider Student in an Organized Health Care Education/Training Program
DX: N17.9 Acute kidney failure, unspecified (principal); E87.5 Hyperkalemia; E76.219 Morquio mucopolysaccharidoses, unspecified
CPT/HCPCS: 36415; 36600; 71045; 80048; 80051; 80053; 80061; 81001; 82330; 82607; 82746; 82805; 83036; 83540; 83550; 84443; 85025; 93005; 96361; 96374; 96375; 99285; G0378; J1815; J1940; J3490; J7030

== ENCOUNTER 2021-12-27 08:00 | Oncology outpatient (recurring) (ONCR) | payer MEDICARE, MEDICAID, SELFPAY ==
[2021-12-20] VITALS (11 sets, daily range): BP systolic 151–174; BP diastolic 105–124; PULSE 84–101; RESP 16–18; TEMP 36.6–37.2; O2SAT 97–99; BMI 24.7
[2021-12-20] MEDS: sodium chloride 0.9% 500 ML 75 ML IV (08:31)
[2021-12-20] MEDS: diphenhydrAMINE 25 mg Capsule 50 MG PO (08:32)
[2021-12-20] MEDS: acetaminophen 325 mg Tablet 650 MG PO (08:32)
[2021-12-20] MEDS: famotidine 20 mg Tablet PO (08:33)
[2021-12-20] MEDS: oxyCODONE 5 mg IR Tab/Cap 10 MG PO (08:33)
[2021-12-20] MEDS: ondansetron 2 mg/ML SDV 2 mL 8 MG IVP (08:36)
[2021-12-20] MEDS: SODIUM CHLORIDE 0.9% IV (08:50)
[2021-12-20] MEDS: [UNRECOGNIZED DRUG - OTHER] IV (08:50)
[2021-12-20 10:07] LABS: Alanine Aminotransferase 8 U/L (0-33); Albumin Level 3.8 g/dL (3.5-5.2); Alkaline Phosphatase 102 U/L (35-105); Anion Gap 15.7 (5-19); Aspartate Amino Transferase 17 U/L (0-32); Blood Urea Nitrogen 10 mg/dL (6-20); Calcium 8.8 mg/dL (8.5-10.5); Carbon Dioxide 25 mmol/L (22-29); Chloride 101 mmol/L (98-107); Globulin 2.9 g/dL (1.3-4.6); Glomerular Filtration Rate 141.2 mL/min (90-130); Glucose 87 mg/dL (65-115); Osmolality Calculated 284 mOsm/kg (285-295); Potassium 3.7 mmol/L (3.5-5.1); Sodium 138 mmol/L (136-145); Total Bilirubin 0.3 mg/dL (0.15-1.2); Total Protein 6.7 g/dL (6.6-8.7)
[2021-12-20] MEDS: lisinopril 2.5 mg Tablet PO (10:21)
--- NOTE | 2021-12-21 15:45 | PC.NURSE ---
This nurse called the patient to let her know about her lab results. There was no answer, so this nurse left a message for the patient to return my call.
--- NOTE | 2021-12-21 15:47 | PC.NURSE ---
Patient returned phone call and I let her know that per Dr. Ramirez her K+ and Liver function is ok now. Dr. Ramirez wanted to make sure she is not taking her Potassium and she confirmed that she was not taking it. Patient acknowledged understanding and had no other questions.
[2021-12-27] VITALS (8 sets, daily range): BP systolic 135–153; BP diastolic 95–116; PULSE 108–118; RESP 16–18; TEMP 36.4–36.7; O2SAT 97–99; BMI 23.8
[2021-12-27] MEDS: diphenhydrAMINE 25 mg Capsule 50 MG PO (08:26)
[2021-12-27] MEDS: acetaminophen 325 mg Tablet 650 MG PO (08:26)
[2021-12-27] MEDS: famotidine 20 mg Tablet PO (08:27)
[2021-12-27] MEDS: oxyCODONE 5 mg IR Tab/Cap 10 MG PO (08:27)
[2021-12-27] MEDS: sodium chloride 0.9% 500 ML 75 ML IV (08:33)
[2021-12-27] MEDS: ondansetron 2 mg/ML SDV 2 mL 8 MG IVP (08:34)
[2021-12-27] MEDS: SODIUM CHLORIDE 0.9% IV (08:55)
[2021-12-27] MEDS: [UNRECOGNIZED DRUG - OTHER] IV (08:55)
[2021-12-27] MEDS: LORazepam 0.5 mg Tablet PO (10:34)
[2021-12-27] MEDS: lisinopril 2.5 mg Tablet PO (10:34)
== END 2021-12-28 09:33 | disposition home or self-care (01) ==
PROVIDERS: Internal Medicine Medical Oncology; PCP Nurse Practitioner Family; Visit Provider Nurse Practitioner Family
DX: E00-E89 Endocrine, nutritional and metabolic diseases; D50.9 Iron deficiency anemia, unspecified; Z79.899 Other long term (current) drug therapy
CPT/HCPCS: 80053; 96365; 96366; 96375; J1322; J2405; J7040; J7050

== ENCOUNTER 2022-01-03 07:59 | Oncology outpatient (recurring) (ONCR) | payer MEDICARE, MEDICAID, SELFPAY ==
[2022-01-03] VITALS (8 sets, daily range): BP systolic 142–165; BP diastolic 103–124; PULSE 110–123; RESP 16–18; TEMP 36.7–37; O2SAT 96–99; BMI 24.1
[2022-01-03] MEDS: sodium chloride 0.9% 500 ML 75 ML IV (08:33)
[2022-01-03] MEDS: acetaminophen 325 mg Tablet 650 MG PO (08:34)
[2022-01-03] MEDS: diphenhydrAMINE 25 mg Capsule 50 MG PO (08:34)
[2022-01-03] MEDS: famotidine 20 mg Tablet PO (08:35)
[2022-01-03] MEDS: oxyCODONE 5 mg IR Tab/Cap 10 MG PO (08:35)
[2022-01-03] MEDS: ondansetron 2 mg/ML SDV 2 mL 8 MG IVP (08:39)
[2022-01-03] MEDS: SODIUM CHLORIDE 0.9% IV (09:00)
[2022-01-03] MEDS: [UNRECOGNIZED DRUG - OTHER] IV (09:00)
[2022-01-03] MEDS: LORazepam 0.5 mg Tablet PO (10:46)
== END 2022-01-03 23:59 | disposition home or self-care (01) ==
PROVIDERS: PCP Nurse Practitioner Family; Visit Provider Nurse Practitioner Family
DX: E76.219 Morquio mucopolysaccharidoses, unspecified (principal); R74.8 Abnormal levels of other serum enzymes; E00-E89 Endocrine, nutritional and metabolic diseases; D50.9 Iron deficiency anemia, unspecified; Z79.899 Other long term (current) drug therapy
CPT/HCPCS: 96365; 96366; 96375; J1322; J2405; J7040; J7050

== ENCOUNTER 2022-01-10 08:21 | Oncology outpatient (recurring) (ONCR) | payer MEDICARE, MEDICAID, SELFPAY ==
[2022-01-10] VITALS (9 sets, daily range): BP systolic 144–164; BP diastolic 100–117; PULSE 90–130; RESP 16–18; TEMP 36.6–37.3; O2SAT 96–99; BMI 23.6
[2022-01-10] MEDS: sodium chloride 0.9% 500 ML 75 ML IV (09:05)
[2022-01-10] MEDS: acetaminophen 325 mg Tablet 650 MG PO (09:09)
[2022-01-10] MEDS: LORazepam 0.5 mg Tablet PO ×2 (09:10→12:30)
[2022-01-10] MEDS: famotidine 20 mg Tablet PO (09:10)
[2022-01-10] MEDS: diphenhydrAMINE 25 mg Capsule 50 MG PO (09:10)
[2022-01-10] MEDS: oxyCODONE 5 mg IR Tab/Cap 10 MG PO (09:11)
[2022-01-10] MEDS: ondansetron 2 mg/ML SDV 2 mL 8 MG IVP (09:15)
[2022-01-10] MEDS: [UNRECOGNIZED DRUG - OTHER] IV (09:35)
[2022-01-10] MEDS: SODIUM CHLORIDE 0.9% IV (09:35)
== END 2022-01-11 10:38 | disposition home or self-care (01) ==
PROVIDERS: PCP Nurse Practitioner Family; Visit Provider Nurse Practitioner Family
DX: E76.219 Morquio mucopolysaccharidoses, unspecified (principal); R74.8 Abnormal levels of other serum enzymes; E00-E89 Endocrine, nutritional and metabolic diseases; D50.9 Iron deficiency anemia, unspecified; Z79.899 Other long term (current) drug therapy
CPT/HCPCS: 96365; 96366; 96375; J1322; J2405; J7040; J7050

== ENCOUNTER 2022-01-17 08:15 | Oncology outpatient (recurring) (ONCR) | payer MEDICARE, MEDICAID, SELFPAY ==
[2022-01-17] VITALS (9 sets, daily range): BP systolic 134–143; BP diastolic 90–104; PULSE 104–132; RESP 16–18; TEMP 35.9–36.4; O2SAT 96–98; BMI 23.3
[2022-01-17] MEDS: sodium chloride 0.9% 500 ML 75 ML IV (08:58)
[2022-01-17] MEDS: acetaminophen 325 mg Tablet 650 MG PO (08:59)
[2022-01-17] MEDS: famotidine 20 mg Tablet PO (08:59)
[2022-01-17] MEDS: diphenhydrAMINE 25 mg Capsule 50 MG PO (08:59)
[2022-01-17] MEDS: ondansetron 2 mg/ML SDV 2 mL 8 MG IVP (09:00)
[2022-01-17] MEDS: oxyCODONE 5 mg IR Tab/Cap 10 MG PO (09:10)
[2022-01-17] MEDS: SODIUM CHLORIDE 0.9% IV (09:25)
[2022-01-17] MEDS: [UNRECOGNIZED DRUG - OTHER] IV (09:25)
== END 2022-01-18 08:15 | disposition home or self-care (01) ==
LOC: ONCMED 08:16
PROVIDERS: PCP Nurse Practitioner Family; Visit Provider Nurse Practitioner Family
DX: E00-E89 Endocrine, nutritional and metabolic diseases; D50.9 Iron deficiency anemia, unspecified; Z79.899 Other long term (current) drug therapy
CPT/HCPCS: 96365; 96366; 96375; J1322; J2405; J7040; J7050

== ENCOUNTER 2022-01-24 08:31 | Oncology outpatient (recurring) (ONCR) | payer MEDICARE, MEDICAID, SELFPAY ==
[2022-01-24] VITALS (9 sets, daily range): BP systolic 142–160; BP diastolic 111–122; PULSE 83–98; RESP 16–18; TEMP 36.4–37.1; O2SAT 96–100; BMI 22.9
[2022-01-24] MEDS: acetaminophen 325 mg Tablet 650 MG PO (09:33)
[2022-01-24] MEDS: diphenhydrAMINE 25 mg Capsule 50 MG PO (09:33)
[2022-01-24] MEDS: sodium chloride 0.9% 500 ML 75 ML IV (09:33)
[2022-01-24] MEDS: famotidine 20 mg Tablet PO (09:34)
[2022-01-24] MEDS: ondansetron 2 mg/ML SDV 2 mL 8 MG IVP (09:36)
[2022-01-24] MEDS: oxyCODONE 5 mg IR Tab/Cap 10 MG PO (09:47)
[2022-01-24] MEDS: SODIUM CHLORIDE 0.9% IV (09:55)
[2022-01-24] MEDS: [UNRECOGNIZED DRUG - OTHER] IV (09:55)
[2022-01-24] MEDS: LORazepam 0.5 mg Tablet PO (10:39)
== END 2022-01-25 09:47 | disposition home or self-care (01) ==
PROVIDERS: PCP Nurse Practitioner Family; Visit Provider Nurse Practitioner Family
DX: E76.219 Morquio mucopolysaccharidoses, unspecified (principal); R74.8 Abnormal levels of other serum enzymes; E00-E89 Endocrine, nutritional and metabolic diseases; D50.9 Iron deficiency anemia, unspecified; Z79.899 Other long term (current) drug therapy
CPT/HCPCS: 96365; 96366; 96375; J1322; J2405; J7040; J7050

== ENCOUNTER 2022-01-31 08:05 | Oncology outpatient (recurring) (ONCR) | payer MEDICARE, MEDICAID, SELFPAY ==
[2022-01-31] VITALS (9 sets, daily range): BP systolic 123–147; BP diastolic 88–103; PULSE 91–119; RESP 16; TEMP 36.2–37.1; O2SAT 96–100; BMI 24.1
[2022-01-31] MEDS: sodium chloride 0.9% 500 ML 75 ML IV (08:34)
[2022-01-31] MEDS: acetaminophen 325 mg Tablet 650 MG PO (08:35)
[2022-01-31] MEDS: diphenhydrAMINE 25 mg Capsule 50 MG PO (08:35)
[2022-01-31] MEDS: oxyCODONE 5 mg IR Tab/Cap 10 MG PO (08:36)
[2022-01-31] MEDS: famotidine 20 mg Tablet PO (08:36)
[2022-01-31] MEDS: ondansetron 2 mg/ML SDV 2 mL 8 MG IVP (08:39)
[2022-01-31] MEDS: SODIUM CHLORIDE 0.9% IV (09:05)
[2022-01-31] MEDS: [UNRECOGNIZED DRUG - OTHER] IV (09:05)
== END 2022-02-01 09:04 | disposition home or self-care (01) ==
PROVIDERS: PCP Nurse Practitioner Family; Visit Provider Nurse Practitioner Family
DX: E76.219 Morquio mucopolysaccharidoses, unspecified (principal); R74.8 Abnormal levels of other serum enzymes; E00-E89 Endocrine, nutritional and metabolic diseases; D50.9 Iron deficiency anemia, unspecified; Z79.899 Other long term (current) drug therapy
CPT/HCPCS: 96365; 96366; 96375; J1322; J2405; J7040; J7050

== ENCOUNTER 2022-02-07 07:54 | Oncology outpatient (recurring) (ONCR) | payer MEDICARE, MEDICAID, SELFPAY ==
[2022-02-07] VITALS (9 sets, daily range): BP systolic 137–163; BP diastolic 91–121; PULSE 109–122; RESP 16–18; TEMP 36.1–37.1; O2SAT 97–99; BMI 23.5
[2022-02-07] MEDS: sodium chloride 0.9% 250 ML 75 ML IV (08:37)
[2022-02-07] MEDS: acetaminophen 325 mg Tablet 650 MG PO (08:43)
[2022-02-07] MEDS: diphenhydrAMINE 25 mg Capsule 50 MG PO (08:43)
[2022-02-07] MEDS: famotidine 20 mg Tablet PO (08:46)
[2022-02-07] MEDS: oxyCODONE 5 mg IR Tab/Cap 10 MG PO (08:46)
[2022-02-07] MEDS: ondansetron 2 mg/ML SDV 2 mL 8 MG IVP (08:50)
[2022-02-07] MEDS: [UNRECOGNIZED DRUG - OTHER] IV (09:30)
[2022-02-07] MEDS: SODIUM CHLORIDE 0.9% IV (09:30)
[2022-02-07] MEDS: LORazepam 0.5 mg Tablet PO (12:26)
== END 2022-02-08 09:31 | disposition home or self-care (01) ==
PROVIDERS: PCP Nurse Practitioner Family; Visit Provider Nurse Practitioner Family
DX: E00-E89 Endocrine, nutritional and metabolic diseases; D50.9 Iron deficiency anemia, unspecified; Z79.899 Other long term (current) drug therapy
CPT/HCPCS: 96365; 96366; 96375; J1322; J2405; J7050

== ENCOUNTER 2022-02-14 08:05 | Oncology outpatient (recurring) (ONCR) | payer MEDICARE, MEDICAID, SELFPAY ==
[2022-02-14] VITALS (9 sets, daily range): BP systolic 113–158; BP diastolic 83–110; PULSE 102–122; RESP 16–18; TEMP 35.9–37.1; O2SAT 96–99; BMI 23.3
[2022-02-14] MEDS: sodium chloride 0.9% 1,000 ML 75 ML IV (08:51)
[2022-02-14] MEDS: acetaminophen 325 mg Tablet 650 MG PO (08:51)
[2022-02-14] MEDS: diphenhydrAMINE 25 mg Capsule 50 MG PO (08:52)
[2022-02-14] MEDS: oxyCODONE 5 mg IR Tab/Cap 10 MG PO (08:52)
[2022-02-14] MEDS: famotidine 20 mg Tablet PO (08:52)
[2022-02-14] MEDS: ondansetron 2 mg/ML SDV 2 mL 8 MG IVP (08:56)
[2022-02-14] MEDS: [UNRECOGNIZED DRUG - OTHER] IV (09:30)
[2022-02-14] MEDS: SODIUM CHLORIDE 0.9% IV (09:30)
== END 2022-02-15 09:55 | disposition home or self-care (01) ==
PROVIDERS: PCP Nurse Practitioner Family; Visit Provider Nurse Practitioner Family
DX: E00-E89 Endocrine, nutritional and metabolic diseases; D50.9 Iron deficiency anemia, unspecified; Z79.899 Other long term (current) drug therapy
CPT/HCPCS: 96365; 96366; 96375; J1322; J2405; J7030; J7050

== ENCOUNTER → 2022-02-15 13:39 | Outpatient (BNVA) | payer MEDICARE, MEDICAID, SELFPAY | PROVIDERS: PCP Nurse Practitioner Family; Visit Provider Specialist | DX: G43.711 Chronic migraine without aura, intractable, with status migrainosus (principal); F98.8 Other specified behavioral and emotional disorders with onset usually occurring in childhood and adolescence; R63.4 Abnormal weight loss; Z68.23 Body mass index [BMI] 23.0-23.9, adult | CPT/HCPCS: 64615; 99213; J0585 ==

== ENCOUNTER 2022-02-21 07:38 | Oncology outpatient (recurring) (ONCR) | payer MEDICARE, MEDICAID, SELFPAY ==
[2022-02-21] VITALS (9 sets, daily range): BP systolic 113–144; BP diastolic 80–96; PULSE 98–119; RESP 16–18; TEMP 36.4–36.9; O2SAT 96–98; BMI 23.3
[2022-02-21 08:15] LABS: Basophils # 0.1 10^3/uL (0.0-0.1); Basophils % 0.6 %; Eosinophils # 0.5 10^3/uL (0.0-0.8); Eosinophils % 6.3 %; Hematocrit 41.2 % (37.0-47.0); Hemoglobin 13.4 g/dL (11.5-15.3); Lymphocytes % 35.1 %; Mean Corpuscular HGB Conc 32.5 g/dL (30.0-36.0); Mean Corpuscular Hemoglobin 27.7 pg (28.0-34.0); Mean Corpuscular Volume 85.3 fl (81-99); Mean Platelet Volume 10.6 fL (7.4-10.4); Monocytes # 0.8 10^3/uL (0.2-0.9); Monocytes % 8.9 %; Neutrophils % 48.5 %; Nucleated Red Blood Cells % 0 %; Platelet Count 355 10^3/cmm (130-400); Red Blood Count 4.83 10^6/uL (4.1-5.3); Red Cell Distribution Width 14.3 % (12.1-15.1); White Blood Count 8.4 10^3/uL (4.0-10.0)
[2022-02-21] MEDS: sodium chloride 0.9% 500 ML 75 ML IV (08:27)
[2022-02-21] MEDS: oxyCODONE 5 mg IR Tab/Cap 10 MG PO (08:28)
[2022-02-21] MEDS: famotidine 20 mg Tablet PO (08:28)
[2022-02-21] MEDS: diphenhydrAMINE 25 mg Capsule 50 MG PO (08:28)
[2022-02-21] MEDS: acetaminophen 325 mg Tablet 650 MG PO (08:28)
[2022-02-21] MEDS: ondansetron 2 mg/ML SDV 2 mL 8 MG IVP (08:33)
[2022-02-21 08:37] LABS: Alanine Aminotransferase 13 U/L (0-33); Albumin Level 4.2 g/dL (3.5-5.2); Alkaline Phosphatase 122 U/L (35-105); Anion Gap 16.4 (5-19); Aspartate Amino Transferase 30 U/L (0-32); Blood Urea Nitrogen 12 mg/dL (6-20); Calcium 9.4 mg/dL (8.5-10.5); Carbon Dioxide 24 mmol/L (22-29); Chloride 94 mmol/L (98-107); Globulin 3.4 g/dL (1.3-4.6); Glomerular Filtration Rate 95.2 mL/min (90-130); Glucose 92 mg/dL (65-115); Osmolality Calculated 271 mOsm/kg (285-295); Potassium 3.4 mmol/L (3.5-5.1); Sodium 131 mmol/L (136-145); Total Bilirubin 0.3 mg/dL (0.15-1.2); Total Protein 7.6 g/dL (6.6-8.7)
[2022-02-21] MEDS: [UNRECOGNIZED DRUG - OTHER] IV (09:05)
[2022-02-21] MEDS: SODIUM CHLORIDE 0.9% IV (09:05)
[2022-02-21] MEDS: LORazepam 0.5 mg Tablet PO (11:31)
== END 2022-02-22 10:01 | disposition home or self-care (01) ==
PROVIDERS: Internal Medicine Medical Oncology; PCP Nurse Practitioner Family; Visit Provider Nurse Practitioner Family
DX: E00-E89 Endocrine, nutritional and metabolic diseases; D50.9 Iron deficiency anemia, unspecified; Z79.899 Other long term (current) drug therapy; Z86.16 Personal history of COVID-19; M25.59 Pain in other specified joint; Z79.891 Long term (current) use of opiate analgesic
CPT/HCPCS: 80053; 85025; 96365; 96366; 99214; J1322; J2405; J7040; J7050

== ENCOUNTER 2022-02-28 08:09 | Oncology outpatient (recurring) (ONCR) | payer MEDICARE, MEDICAID, SELFPAY ==
[2022-02-28] VITALS (10 sets, daily range): BP systolic 92–159; BP diastolic 58–117; PULSE 90–122; RESP 16–18; TEMP 36.3–37; O2SAT 97–100; BMI 23.6
[2022-02-28] MEDS: sodium chloride 0.9% 500 ML 75 ML IV (08:40)
[2022-02-28] MEDS: diphenhydrAMINE 25 mg Capsule 50 MG PO (08:45)
[2022-02-28] MEDS: acetaminophen 325 mg Tablet 650 MG PO (08:45)
[2022-02-28] MEDS: famotidine 20 mg Tablet PO (08:45)
[2022-02-28] MEDS: ondansetron 2 mg/ML SDV 2 mL 8 MG IVP (08:47)
[2022-02-28] MEDS: oxyCODONE 5 mg IR Tab/Cap 10 MG PO (08:58)
[2022-02-28] MEDS: SODIUM CHLORIDE 0.9% IV (09:10)
[2022-02-28] MEDS: [UNRECOGNIZED DRUG - OTHER] IV (09:10)
== END 2022-03-05 23:59 | disposition home or self-care (01) ==
PROVIDERS: PCP Nurse Practitioner Family; Visit Provider Nurse Practitioner Family
DX: E00-E89 Endocrine, nutritional and metabolic diseases; D50.9 Iron deficiency anemia, unspecified; Z79.899 Other long term (current) drug therapy
CPT/HCPCS: 96365; 96366; 96375; J1322; J2405; J7040; J7050

== ENCOUNTER 2022-03-14 08:00 | Oncology outpatient (recurring) (ONCR) | payer MEDICARE, MEDICAID, SELFPAY ==
[2022-03-07] VITALS (8 sets, daily range): BP systolic 111–137; BP diastolic 75–95; PULSE 62–105; RESP 16–18; TEMP 36.6–36.8; O2SAT 98–99; BMI 24.1
[2022-03-07] MEDS: acetaminophen 325 mg Tablet 650 MG PO (08:59)
[2022-03-07] MEDS: sodium chloride 0.9% 500 ML 75 ML IV (08:59)
[2022-03-07] MEDS: HYDROcodone-acetaminophen 5-325 mg Tablet 1 TAB PO ×2 (09:00→13:46)
[2022-03-07] MEDS: famotidine 20 mg Tablet PO (09:00)
[2022-03-07] MEDS: diphenhydrAMINE 25 mg Capsule 50 MG PO (09:00)
[2022-03-07] MEDS: ondansetron 2 mg/ML SDV 2 mL 8 MG IVP (09:03)
[2022-03-07] MEDS: LORazepam 0.5 mg Tablet PO (11:13)
[2022-03-14] VITALS (7 sets, daily range): BP systolic 94–156; BP diastolic 62–113; PULSE 73–104; RESP 16; TEMP 35.9–36.9; O2SAT 96–100; BMI 23.8
[2022-03-14] MEDS: diphenhydrAMINE 25 mg Capsule 50 MG PO (08:38)
[2022-03-14] MEDS: acetaminophen 325 mg Tablet 650 MG PO (08:38)
[2022-03-14] MEDS: HYDROcodone-acetaminophen 5-325 mg Tablet 1 TAB PO ×2 (08:39→14:05)
[2022-03-14] MEDS: famotidine 20 mg Tablet PO (08:39)
[2022-03-14] MEDS: ondansetron 2 mg/ML SDV 2 mL 8 MG IVP (08:41)
[2022-03-14] MEDS: sodium chloride 0.9% 500 ML 75 ML IV (08:42)
[2022-03-14] MEDS: LORazepam 0.5 mg Tablet PO (09:45)
== END 2022-03-15 09:50 | disposition home or self-care (01) ==
PROVIDERS: PCP Nurse Practitioner Family; Visit Provider Nurse Practitioner Family
DX: E00-E89 Endocrine, nutritional and metabolic diseases (principal); D50.9 Iron deficiency anemia, unspecified; Z79.899 Other long term (current) drug therapy
CPT/HCPCS: 90471; 90686; 96365; 96366; 96375; J1322; J2405; J7040; J7050

== ENCOUNTER 2022-03-21 08:07 | Oncology outpatient (recurring) (ONCR) | payer MEDICARE, MEDICAID, SELFPAY ==
[2022-03-21] VITALS (7 sets, daily range): BP systolic 132–168; BP diastolic 93–119; PULSE 99–111; RESP 16–18; TEMP 36.4–37.2; O2SAT 97–99; BMI 23.1
[2022-03-21] MEDS: sodium chloride 0.9% 500 ML 75 ML IV (08:31)
[2022-03-21] MEDS: famotidine 20 mg Tablet PO (08:35)
[2022-03-21] MEDS: acetaminophen 325 mg Tablet 650 MG PO (08:35)
[2022-03-21] MEDS: diphenhydrAMINE 25 mg Capsule 50 MG PO (08:35)
[2022-03-21] MEDS: HYDROcodone-acetaminophen 5-325 mg Tablet 1 TAB PO ×2 (08:35→12:50)
[2022-03-21] MEDS: ondansetron 2 mg/ML SDV 2 mL 8 MG IVP (08:37)
== END 2022-03-22 10:38 | disposition home or self-care (01) ==
PROVIDERS: PCP Nurse Practitioner Family; Visit Provider Nurse Practitioner Family
DX: E00-E89 Endocrine, nutritional and metabolic diseases (principal); D50.9 Iron deficiency anemia, unspecified; Z79.899 Other long term (current) drug therapy
CPT/HCPCS: 96365; 96366; 96375; J1322; J2405; J7040; J7050

== ENCOUNTER 2022-03-28 07:55 | Oncology outpatient (recurring) (ONCR) | payer MEDICARE, MEDICAID, SELFPAY ==
[2022-03-28] VITALS (8 sets, daily range): BP systolic 92–144; BP diastolic 62–95; PULSE 82–103; RESP 16–18; TEMP 36.4–36.7; O2SAT 97–99
[2022-03-28] MEDS: diphenhydrAMINE 25 mg Capsule 50 MG PO (08:17)
[2022-03-28] MEDS: acetaminophen 325 mg Tablet 650 MG PO (08:18)
[2022-03-28] MEDS: HYDROcodone-acetaminophen 5-325 mg Tablet 1 TAB PO (08:19)
[2022-03-28] MEDS: famotidine 20 mg Tablet PO (08:20)
[2022-03-28] MEDS: ondansetron 2 mg/ML SDV 2 mL 8 MG IVP (08:24)
[2022-03-28] MEDS: sodium chloride 0.9% 500 ML 75 ML IV (08:24)
== END 2022-04-02 10:55 | disposition home or self-care (01) ==
PROVIDERS: PCP Nurse Practitioner Family; Visit Provider Nurse Practitioner Family
DX: E00-E89 Endocrine, nutritional and metabolic diseases (principal); D50.9 Iron deficiency anemia, unspecified; Z79.899 Other long term (current) drug therapy
CPT/HCPCS: 96365; 96366; 96375; A4222; J1322; J2405; J7040; J7050

== ENCOUNTER 2022-04-04 07:49 | Oncology outpatient (recurring) (ONCR) | payer MEDICARE, MEDICAID, SELFPAY ==
[2022-04-04] VITALS (7 sets, daily range): BP systolic 142–171; BP diastolic 99–115; PULSE 60–94; RESP 16–18; TEMP 36.1–36.7; O2SAT 96–100; BMI 23.8
[2022-04-04 08:37] LABS: Basophils # 0.1 10^3/uL (0.0-0.1); Basophils % 0.7 %; Eosinophils # 0.1 10^3/uL (0.0-0.8); Eosinophils % 0.5 %; Hematocrit 39.4 % (37.0-47.0); Hemoglobin 12.5 g/dL (11.5-15.3); Lymphocytes # 3.1 10^3/uL (0.8-4.8); Lymphocytes % 25.9 %; Mean Corpuscular HGB Conc 31.7 g/dL (30.0-36.0); Mean Corpuscular Hemoglobin 26.8 pg (28.0-34.0); Mean Corpuscular Volume 84.5 fl (81-99); Mean Platelet Volume 10.7 fL (7.4-10.4); Monocytes # 0.8 10^3/uL (0.2-0.9); Monocytes % 6.5 %; Neutrophils # 7.99 10^3/uL (1.8-7.7); Neutrophils % 66.1 %; Nucleated Red Blood Cells % 0 %; Platelet Count 411 10^3/cmm (130-400); Red Blood Count 4.66 10^6/uL (4.1-5.3); Red Cell Distribution Width 15.9 % (12.1-15.1); White Blood Count 12.1 10^3/uL (4.0-10.0)
[2022-04-04] MEDS: famotidine 20 mg Tablet PO (08:57)
[2022-04-04] MEDS: acetaminophen 325 mg Tablet 650 MG PO (08:57)
[2022-04-04] MEDS: diphenhydrAMINE 25 mg Capsule 50 MG PO (08:57)
[2022-04-04 08:58] LABS: Alanine Aminotransferase 32 U/L (0-33); Albumin Level 4.2 g/dL (3.5-5.2); Alkaline Phosphatase 150 U/L (35-105); Anion Gap 17.3 (5-19); Aspartate Amino Transferase 74 U/L (0-32); Blood Urea Nitrogen 14 mg/dL (6-20); Calcium 9.3 mg/dL (8.5-10.5); Carbon Dioxide 21 mmol/L (22-29); Chloride 100 mmol/L (98-107); Globulin 3.2 g/dL (1.3-4.6); Glomerular Filtration Rate 140.4 mL/min (90-130); Glucose 99 mg/dL (65-115); Osmolality Calculated 281 mOsm/kg (285-295); Potassium 3.3 mmol/L (3.5-5.1); Sodium 135 mmol/L (136-145); Total Bilirubin 0.4 mg/dL (0.15-1.2); Total Protein 7.4 g/dL (6.6-8.7)
[2022-04-04] MEDS: sodium chloride 0.9% 500 ML 75 ML IV (09:00)
[2022-04-04] MEDS: HYDROcodone-acetaminophen 5-325 mg Tablet 1 TAB PO ×2 (09:02→13:02)
[2022-04-04] MEDS: ondansetron 2 mg/ML SDV 2 mL 8 MG IVP (09:06)
[2022-04-04] MEDS: LORazepam 0.5 mg Tablet PO (10:26)
[2022-04-04] MEDS: lisinopril 2.5 mg Tablet PO (11:06)
[2022-04-04] MEDS: potassium chloride premix 20 MEQ/100 ML 50 MEQ IV (13:43)
== END 2022-04-04 23:59 | disposition home or self-care (01) ==
LOC: ONCMED 07:50
PROVIDERS: Internal Medicine Medical Oncology; PCP Nurse Practitioner Family; Visit Provider Nurse Practitioner Family
DX: E00-E89 Endocrine, nutritional and metabolic diseases (principal); D50.9 Iron deficiency anemia, unspecified; Z79.899 Other long term (current) drug therapy
CPT/HCPCS: 80053; 85025; 96365; 96366; 96367; 96375; J1322; J2405; J3480; J7040; J7050

== ENCOUNTER 2022-04-09 21:23 | Emergency (ER) | payer MEDICARE, MEDICAID, SELFPAY ==
[2022-04-09 21:27] VITALS: BP 116/80; PULSE 71; RESP 16; TEMP 36.6; O2SAT 100; BMI 23.5
--- NOTE | 2022-04-09 21:29 | ED_ITS ---
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 Chronic migraine Chronic musculoskeletal pain Gastroparesis History of hip fracture History of pulmonary embolism Hypertension Mucopolysaccharidosis 4 Mucopolysaccharidosis 4 Transaminitis History of transaminitis, presumed secondary to acetaminophen Surgical History History of neck surgery History of right hip replacement History of spinal fusion In 2000 and in 2002 History of surgery on lower extremity (1998) Right leg surgery History of total left hip arthroplasty (12/2015) History of total right hip arthroplasty (03/2016) Port-A-Cath in place Family History Father Clotting disorder Hyperlipidemia Mother Hyperlipidemia Other Cancer Diabetes Hypertension Stroke Denies family history of CAD (coronary artery disease) Dementia Psychiatric illness Chronic kidney disease (CKD) Suicide Anesthesia complication Bleeding disorder Lung disease Social History Smoking and tobacco status: never smoked Second hand smoke exposure: Yes Alcohol intake: current Alcohol intake frequency: holidays/special occasions only History of recent travel: No Discharge Plan Discharge Condition: Stable Prescriptions: No Action medroxyprogesterone [Depo-Provera] 150 mg/mL suspension 150 mg IM Q90D diphenhydramine HCl [Allergy (diphenhydramine)] 25 mg capsule 25 mg PO Q6H PRN (Reason: Allergic Reaction) erythromycin 250 mg tablet 250 mg PO QID lisinopril 2.5 mg tablet 2.5 mg PO DAILY PRN (Reason: Blood Pressure) Eliquis 5 mg tablet 2.5 mg PO BID furosemide [Lasix] 20 mg tablet 20 mg PO DAILY PRN (Reason: Edema) Botox 100 unit recon soln 100 unit SUBCUT Q30D meloxicam 7.5 mg tablet 7.5 mg PO BID Qty: 60 2RF Hold Instructions: Resume on 01/03/22. famotidine [Pepcid] 20 mg tablet 20 mg PO BID Qty: 60 2RF methylphenidate HCl [Concerta] 36 mg tablet extended release 24hr 36 mg PO DAILY 90 Days Qty: 90 0RF Rx Instructions: DO NOT FILL UNTIL 04/05/2022 340B methylphenidate HCl [Concerta] 36 mg tablet extended release 24hr 36 mg PO DAILY 90 Days Qty: 90 0RF Rx Instructions: 340B methylphenidate HCl [Concerta] 36 mg tablet extended release 24hr 36 mg PO DAILY 90 Days Qty: 90 0RF Rx Instructions: DO NOT FILL UNTIL 03/07/2022 340B amoxicillin-pot clavulanate 875-125 mg tablet 1 tab PO BID 7 Days Qty: 14 0RF venlafaxine 150 mg capsule,extended release 24hr See Rx Instructions .ROUTE .COMPLEX Qty: 30 3RF Dose Instruction: Take 1 capsule by mouth once daily Rx Instructions: Take 1 capsule by mouth once daily oxycodone 10 mg tablet 10 mg PO .5x per day PRN (Reason: pain) 30 Days Qty: 150 0RF tizanidine 4 mg capsule 4 - 8 mg PO TID PRN (Reason: muscle spasticity) Qty: 60 0RF tizanidine 4 mg capsule 8 mg PO TID PRN (Reason: muscle spasticity) Qty: 180 2RF lorazepam [Ativan] 1 mg tablet 1 mg PO TID PRN (Reason: Anxiety) Qty: 90 0RF albuterol sulfate 90 mcg/actuation Hfa Aerosol Inhaler 2 puff INHALATION Q6H PRN (Reason: Shortness Of Breath) potassium chloride 40 mEq/15 mL liquid 40 meq PO DAILY PRN (Reason: prn) Referrals: Francine Singh FNP [Primary Care Provider] - Coding Level of Care Code ED 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
--- NOTE | 2022-04-09 21:37 | ED_ITS ---
Documented by User: Dequan Fonseca MD 04/20/22 22:43 HPI - Recheck/Abnormal Lab/Rx General: Chief Complaint: Recheck/Abnormal Lab/Rx Stated Complaint: AMS Time Seen by Provider: 04/09/22 21:29 History of Present Illness: Ms. Campbell is a 36-year-old lady with history of mucopolysaccharidosis type IV-A presenting to the emergency department due to generalized symptoms. She reports a history of recurrent hypokalemia despite taking potassium supplementation at home. Most recently she was seen and evaluated at outside hospital for hypokalemia 5 days ago. She initially felt improved with treatment however worsened again generalized malaise. Additionall y she endorses visual and auditory hallucinations which started with these episodes of hypokalemia. Denies command hallucinations or other psychiatric symptoms, no suicidal or homicidal ideation. Intensity symptoms moderate. Course is worsened. No other specific changes in health, exacerbating, or alleviating factors identified. Initial visit (ago): day(s) Initial visit for: other Returns today for: other Associated symptoms: malaise and other Review of Systems General: Reports: 10 or more systems reviewed and unremarkable except in HPI and below PFSH ED 2 PFSH: Medical History Anxiety and depression Asthma 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 Chronic migraine Chronic musculoskeletal pain Gastroparesis History of hip fracture History of pulmonary embolism Hypertension Mucopolysaccharidosis 4 Mucopolysaccharidosis 4 Transaminitis History of transaminitis, presumed secondary to acetaminophen Surgical History History of neck surgery History of right hip replacement History of spinal fusion In 2000 and in 2002 History of surgery on lower extremity (1998) Right leg surgery History of total left hip arthroplasty (12/2015) History of total right hip arthroplasty (03/2016) Port-A-Cath in place Family History Father Clotting disorder Hyperlipidemia Mother Hyperlipidemia Other Cancer Diabetes Hypertension Stroke Denies family history of CAD (coronary artery disease) Dementia Psychiatric illness Chronic kidney disease (CKD) Suicide Anesthesia complication Bleeding disorder Lung disease Social History Smoking and tobacco status: never smoked Second hand smoke exposure: Yes Alcohol intake: current Alcohol intake frequency: holidays/special occasions only History of recent travel: No Physical Exam Const: COMMON NORMALS: alert GENERAL APPEARANCE: cooperative and well developed HENMT: COMMON NORMALS: normocephalic and atraumatic HEAD & SCALP: normocephalic and atraumatic THROAT: posterior oropharynx normal Eye: COMMON NORMALS: conjunctivae normal CONJUNCTIVA: Yes conjunctivae normal SCLERA: sclerae normal Neck/C-Spine: COMMON NORMALS: supple GENERAL: Yes trachea midline Resp: COMMON NORMALS: normal respiratory effort and clear to auscultation bila terally EFFORT & INSPECTION: Yes able to speak in complete sentences AUSCULTATION: clear to auscultation bilaterally Cardio: COMMON NORMALS: regular rate and regular rhythm RATE: regular rate RHYTHM: regular rhythm GI: COMMON NORMALS: Soft to palpation PALPATION: Yes Soft to palpation and No Tenderness to palpation present (GI) PERCUSSION: normal to percussion Extremity: GENERAL: Yes normal exam except as noted and No edema Neuro: COMMON NORMALS: moves all extremities SENSORIUM/ORIENTATION: Yes alert and No Orientation impaired Psych: COMMON NORMALS: mental status grossly normal and Normal thought process present THOUGHT PROCESS: Normal thought process present Course Vital Signs: Vital signs: Vital Signs Temperature 97.9 F 04/09/22 21:27 Pulse Rate 71 04/09/22 21:27 Respiratory Rate 16 04/09/22 21:27 Blood Pressure 116/80 04/09/22 21:27 Pulse Oximetry 100 04/09/22 21:27 Oxygen Delivery Me thod 04/09/22 21:27 MDM - Recheck/Abnormal Lab/Rx Medical Decision Making 36-year-old lady with complex history presenting due to concern of recurrent hypokalemia secondary to underlying medical condition. Endorses similar symptoms in the past. EKG shows sinus rhythm, no STEMI. Labs notable for no leukocytosis, normal hemoglobin. Metabolic panel with higher potassium compared to prior reported, transaminitis noted, she does have a history of similar however this is more significant and a relatively recent change. Patient care handed off to Dr. Ernst pending completion of ED evaluation and ultrasound. Patient feels a lot improved with IV fluids and analgesia. Patient presents here she does have elevated liver enzymes she has had this in the past she is no signs of hepatitis ultrasound is normal patient stable for discharge she return if worsening. Medical Records I reviewed the patient's medical records. Lab Data I reviewed the patient's lab results. 04/09/22 21:30 04/09/22 21:30 Radiology Impressions Abdomen Ultrasound 04/09/22 22:54 IMPRESSION: No acute findings. Laboratory Results WBC 8.6 10^3/uL (4.0-10.0) 04/09/22 21:30 RBC 5.20 10^6/uL (4.1-5.3) 04/09/22 21:30 Hgb 14.3 g/dL (11.5-15.3) 04/09/22 21:30 Hct 46.5 % (37.0-47.0) 04/09/22: MCV 89.4 fl (81-99) 04/09/22 21: MCH 27.5 pg (28.0-34.0) L 04/09/22 21: MCHC 30.8 g/dL (30.0-36.0) 04/09/22 21: RDW 17.9 % (12.1-15.1) H 04/09/22 21:30 Plt Count 399 10^3/cmm (130-400) 04/09/22 21: MPV 11.7 fL (7.4-10.4) H 04/09/22 21:30 Neut % (Auto) 56.3 % 04/09/22 21: Lymph % (Auto) 29.2 % 04/09/22 21:30 Rice % (Auto) 9.7 % 04/09/22 21:30 Eos % (Auto) 3.5 % 04/09/22 21:30 Baso % (Auto) 0.7 % 04/09/22 21:30 Neut # (Auto) 4.85 10^3/uL (1.8-7.7) 04/09/22: Lymph # (Auto) 2.5 10^3/uL (0.8-4.8) 04/09/22 21:30 Rice # (Auto) 0.8 10^3/uL (0.2-0.9) 04/09/22 21:30 Eos # (Auto) 0.3 10^3/uL (0.0-0.8) 04/09/22 21:30 Baso # (Auto) 0.1 10^3/uL (0.0-0.1) 04/09/22 21:30 Nucleated RBC % (auto) 0 % 04/09/22 21:30 Nucleated RBCs # 0.0 /100WBC 04/09/22 21:30 Sodium 133 mmol/L (136-145) L 04/09/22 21:30 Potassium 5.5 mmol/L (3.5-5.1) H 04/09/22 21:30 Chloride 103 mmol/L (98-107) 04/09/22 21:30 Carbon Dioxide 20 mmol/L (22-29) L 04/09/22 21:30 Anion Gap 15.5 (5-19) 04/09/22 21:30 BUN 9 mg/dL (6-20) 04/09/22 21:30 Creatinine 0.4 mg/dL (0.5-0.9) L 04/09/22 21:30 GFR Calculation 181.6 mL/min (90-130) H 04/09/22 21:30 Glucose 94 mg/dL (65-115) 04/09/22 21:30 Calculated Osmolality 274 mOsm/kg (285-295) L 04/09/22 21:30 Calcium 9.5 mg/dL (8.5-10.5) 04/09/22:30 Magnesium 1.8 mg/dL (1.7-2.3) 04/09/22 21:30 Total Bilirubin 0.8 mg/dL (0.15-1.2) 04/09/22 21:30 AST 233 U/L (0-32) H 04/09/22 21:30 ALT 1179 U/L (0-33) H 04/09/22 21:30 Alkaline Phosphatase 200 U/L (35-105) H 04/09/22 21:30 Total Protein 6.7 g/dL (6.6-8.7) 04/09/22 21:30 Albumin 3.6 g/dL (3.5-5.2) 04/09/22 21:30 Globulin 3.1 g/dL (1.3-4.6) 04/09/22 21:30 TSH 1.35 uIU/mL (0.27-4.20) 04/09/22 21:30 Acetaminophen < 5.0 ug/mL (10-30) L 04/09/22 21:05 Hepatitis A IgM Ab Non-reactive (Nonreactive) 04/09/22 21:05 Hep Bs Antigen Non-reactive (Nonreactive) 04/09/22 21:05 Hep B Core IgM Ab Non-reactive (Nonreactive) 04/09/22 21:05 Hepatitis C Antibody Non-reactive (Nonreactive) 04/09/22 21:05 Discharge Plan Discharge Patient Disposition: Home Clinical Impression: Dehydration, Hallucinations, unspecified, Abnormal transaminases Condition: Stable Prescriptions: No Action medroxyprogesterone [Depo-Provera] 150 mg/mL suspension 150 mg IM Q90D diphenhydramine HCl [Allergy (diphenhydramine)] 25 mg capsule 25 mg PO Q6H PRN (Reason: Allergic Reaction) erythromycin 250 mg tablet 250 mg PO QID lisinopril 2.5 mg tablet 2.5 mg PO DAILY PRN (Reason: Blood Pressure) Eliquis 5 mg tablet 2.5 mg PO BID furosemide [Lasix] 20 mg tablet 20 mg PO DAILY PRN (Reason: Edema) Botox 100 unit recon soln 100 unit SUBCUT Q30D methylphenidate HCl [Concerta] 36 mg tablet extended release 24hr 36 mg PO DAILY 90 Days Qty: 90 0RF Rx Instructions: DO NOT FILL UNTIL 04/05/2022 340B methylphenidate HCl [Concerta] 36 mg tablet extended release 24hr 36 mg PO DAILY 90 Days Qty: 90 0RF Rx Instructions: 340B methylphenidate HCl [Concerta] 36 mg tablet extended release 24hr 36 mg PO DAILY 90 Days Qty: 90 0RF Rx Instructions: DO NOT FILL UNTIL 03/07/2022 340B amoxicillin-pot clavulanate 875-125 mg tablet 1 tab PO BID 7 Days Qty: 14 0RF venlafaxine 150 mg capsule,extended release 24hr See Rx Instructions .ROUTE .COMPLEX Qty: 30 3RF Dose Instruction: Take 1 capsule by mouth once daily Rx Instructions: Take 1 capsule by mouth once daily tizanidine 4 mg capsule 4 - 8 mg PO TID PRN (Reason: muscle spasticity) Qty: 60 0RF tizanidine 4 mg capsule 8 mg PO TID PRN (Reason: muscle spasticity) Qty: 180 2RF lorazepam [Ativan] 1 mg tablet 1 mg PO TID PRN (Reason: Anxiety) Qty: 90 0RF famotidine 20 mg tablet See Rx Instructions .ROUTE .COMPLEX Qty: 60 2RF Dose Instruction: Take 1 tablet by mouth twice daily Rx Instructions: Take 1 tablet by mouth twice daily meloxicam 7.5 mg tablet See Rx Instructions .ROUTE .COMPLEX Qty: 60 2RF Hold Instructions: Resume on 01/03/22. Dose Instruction: Take 1 tablet by mouth twice daily Rx Instructions: Take 1 tablet by mouth twice daily oxycodone 10 mg tablet 10 mg PO .5x per day PRN (Reason: pain) 30 Days Qty: 150 0RF albuterol sulfate 90 mcg/actuation Hfa Aerosol Inhaler 2 puff INHALATION Q6H PRN (Reason: Shortness Of Breath) potassium chloride 40 mEq/15 mL liquid 40 meq PO DAILY PRN (Reason: prn) Discharge Orders: Discharge ED (Routine); Ordered 04/10/22 Ordered By: Josi Ernst Referrals: Francine Singh FNP [Primary Care Provider] - Discharge Diet: Usual diet Discharge Activity: Increase activity as tolerated Patient Instructions: Dehydration (ED), Nonpsychiatric Hallucinations (ED), Opioid Safety Activity Restrictions/Additional Instructions: Thank you for visiting the emergency department. You were seen and evaluated for generalized illness and concern over electrolyte abnormality. Your potassium is actually mildly elevated and there is evidence of dehydration. Additionally, as discussed you do have elevation of your liver enzymes. I recommend ensuring that you are staying hydrated and follow-up with Dr. Ramirez within the next 3 to 5 days with repeat laboratory studies. Please follow-up with your primary care provider as well. Return to the emergency department for uncontrolled symptoms, jaundice, inability to tolerate oral intake, right upper quadrant abdominal pain, or anything else that you are concerned about and feel needs emergency department evaluation. Coding Level of Care Code ED Clerical Car Checker for Thomas Martines Documented by User: Josi Ernst MD 04/10/22 00:26 HPI - Recheck/Abnormal Lab/Rx General: Chief Complaint: Recheck/Abnormal Lab/Rx Stated Complaint: AMS Time Seen by Provider: 04/09/22 21:29 PFSH ED PFSH: Medical History Anxiety and depression Asthma 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 Chronic migraine Chronic musculoskeletal pain Gastroparesis History of hip fracture History of pulmonary embolism Hypertension Mucopolysaccharidosis 4 Mucopolysaccharidosis 4 Transaminitis History of transaminitis, presumed secondary to acetaminophen Surgical History History of neck surgery History of right hip replacement History of spinal fusion In 2000 and in 2002 History of surgery on lower extremity (1998) Right leg surgery History of total left hip arthroplasty (12/2015) History of total right hip arthroplasty (03/2016) Port-A-Cath in place Family History Father Clotting disorder Hyperlipidemia Mother Hyperlipidemia Other Cancer Diabetes Hypertension Stroke Denies family history of CAD (coronary artery disease) Dementia Psychiatric illness Chronic kidney disease (CKD) Suicide Anesthesia complication Bleeding disorder Lung disease Social History Smoking and tobacco status: never smoked Second hand smoke exposure: Yes Alcohol intake: current Alcohol intake frequency: holidays/special occasions only History of recent travel: No Course Vital Signs: Vital signs: Vital Signs Temperature 97.9 F 04/09/22 21:27 Pulse Rate 71 04/09/22 21:27 Respiratory Rate 16 04/09/22 21:27 Blood Pressure 116/80 04/09/22 21:27 Pulse Oximetry 100 04/09/22 21:27 Oxygen Delivery Me thod 04/09/22 21:27 MDM - Recheck/Abnormal Lab/Rx Medical Decision Making Patient presents here she does have elevated liver enzymes she has had this in the past she is no signs of hepatitis ultrasound is normal patient stable for discharge she return if worsening. Lab Data 04/09/22 21:30 04/09/22 21:30 Radiology Impressions Abdomen Ultrasound 04/09/22 22:54 IMPRESSION: No acute findings. Laboratory Results WBC 8.6 10^3/uL (4.0-10.0) 04/09/22 21: RBC 5.20 10^6/uL (4.1-5.3) 04/09/22 21: Hgb 14.3 g/dL (11.5-15.3) 04/09/22 21:30 Hct 46.5 % (37.0-47.0) 04/09/22 21: MCV 89.4 fl (81-99) 04/09/22 21:30 MCH 27.5 pg (28.0-34.0) L 04/09/22 21: MCHC 30.8 g/dL (30.0-36.0) 04/09/22 21: RDW 17.9 % (12.1-15.1) H 04/09/22 21: Plt Count 399 10^3/cmm (130-400) 04/09/22 21: MPV 11.7 fL (7.4-10.4) H 04/09/22 21:30 Neut % (Auto) 56.3 % 04/09/22 21: Lymph % (Auto) 29.2 % 04/09/22 21:30 Rice % (Auto) 9.7 % 04/09/22 21: Eos % (Auto) 3.5 % 04/09/22: Baso % (Auto) 0.7 % 04/09/22: Neut # (Auto) 4.85 10^3/uL (1.8-7.7) 04/09/22 21: Lymph # (Auto) 2.5 10^3/uL (0.8-4.8) 04/09/22 21:30 Rice # (Auto) 0.8 10^3/uL (0.2-0.9) 04/09/22 21: Eos # (Auto) 0.3 10^3/uL (0.0-0.8) 04/09/22 21: Baso # (Auto) 0.1 10^3/uL (0.0-0.1) 04/09/22 21: Nucleated RBC % (auto) 0 % 04/09/22 21: Nucleated RBCs # 0.0 /100WBC 04/09/22 21:30 Sodium 133 mmol/L (136-145) L 04/09/22 21:30 Potassium 5.5 mmol/L (3.5-5.1) H 04/09/22 21:30 Chloride 103 mmol/L (98-107) 04/09/22 21: Carbon Dioxide 20 mmol/L (22-29) L 04/09/22 21:30 Anion Gap 15.5 (5-19) 04/09/22:30 BUN 9 mg/dL (6-20) 04/09/22:30 Creatinine 0.4 mg/dL (0.5-0.9) L 04/09/22:30 GFR Calculation 181.6 mL/min (90-130) H 04/09/22: Glucose 94 mg/dL (65-115) 04/09/22: Calculated Osmolality 274 mOsm/kg (285-295) L 04/09/22: Calcium 9.5 mg/dL (8.5-10.5) 04/09/22: Magnesium 1.8 mg/dL (1.7-2.3) 04/09/22: Total Bilirubin 0.8 mg/dL (0.15-1.2) 04/09/22:30 AST 233 U/L (0-32) H 04/09/22:30 ALT 1179 U/L (0-33) H 04/09/22 21:30 Alkaline Phosphatase 200 U/L (35-105) H 04/09/22:30 Total Protein 6.7 g/dL (6.6-8.7) 04/09/22: Albumin 3.6 g/dL (3.5-5.2) 04/09/22: Globulin 3.1 g/dL (1.3-4.6) 04/09/22: TSH 1.35 uIU/mL (0.27-4.20) 04/09/22: Acetaminophen < 5.0 ug/mL (10-30) L 04/09/22:05 Hepatitis A IgM Ab Non-reactive (Nonreactive) 04/09/22: Hep Bs Antigen Non-reactive (Nonreactive) 04/09/22: Hep B Core IgM Ab Non-reactive (Nonreactive) 04/09/22 21:05 Hepatitis C Antibody Non-reactive (Nonreactive) 04/09/22 21:05 Discharge Plan Discharge Patient Disposition: Home Clinical Impression: Dehydration, Hallucinations, unspecified, Abnormal transaminases Condition: Stable Prescriptions: No Action medroxyprogesterone [Depo-Provera] 150 mg/mL suspension 150 mg IM Q90D diphenhydramine HCl [Allergy (diphenhydramine)] 25 mg capsule 25 mg PO Q6H PRN (Reason: Allergic Reaction) erythromycin 250 mg tablet 250 mg PO QID lisinopril 2.5 mg tablet 2.5 mg PO DAILY PRN (Reason: Blood Pressure) Eliquis 5 mg tablet 2.5 mg PO BID furosemide [Lasix] 20 mg tablet 20 mg PO DAILY PRN (Reason: Edema) Botox 100 unit recon soln 100 unit SUBCUT Q30D methylphenidate HCl [Concerta] 36 mg tablet extended release 24hr 36 mg PO DAILY 90 Days Qty: 90 0RF Rx Instructions: DO NOT FILL UNTIL 04/05/2022 340B methylphenidate HCl [Concerta] 36 mg tablet extended release 24hr 36 mg PO DAILY 90 Days Qty: 90 0RF Rx Instructions: 340B methylphenidate HCl [Concerta] 36 mg tablet extended release 24hr 36 mg PO DAILY 90 Days Qty: 90 0RF Rx Instructions: DO NOT FILL UNTIL 03/07/2022 340B amoxicillin-pot clavulanate 875-125 mg tablet 1 tab PO BID 7 Days Qty: 14 0RF venlafaxine 150 mg capsule,extended release 24hr See Rx Instructions .ROUTE .COMPLEX Qty: 30 3RF Dose Instruction: Take 1 capsule by mouth once daily Rx Instructions: Take 1 capsule by mouth once daily tizanidine 4 mg capsule 4 - 8 mg PO TID PRN (Reason: muscle spasticity) Qty: 60 0RF tizanidine 4 mg capsule 8 mg PO TID PRN (Reason: muscle spasticity) Qty: 180 2RF lorazepam [Ativan] 1 mg tablet 1 mg PO TID PRN (Reason: Anxiety) Qty: 90 0RF famotidine 20 mg tablet See Rx Instructions .ROUTE .COMPLEX Qty: 60 2RF Dose Instruction: Take 1 tablet by mouth twice daily Rx Instructions: Take 1 tablet by mouth twice daily meloxicam 7.5 mg tablet See Rx Instructions .ROUTE .COMPLEX Qty: 60 2RF Hold Instructions: Resume on 01/03/22. Dose Instruction: Take 1 tablet by mouth twice daily Rx Instructions: Take 1 tablet by mouth twice daily oxycodone 10 mg tablet 10 mg PO .5x per day PRN (Reason: pain) 30 Days Qty: 150 0RF albuterol sulfate 90 mcg/actuation Hfa Aerosol Inhaler 2 puff INHALATION Q6H PRN (Reason: Shortness Of Breath) potassium chloride 40 mEq/15 mL liquid 40 meq PO DAILY PRN (Reason: prn) Discharge Orders: Discharge ED (Routine); Ordered 04/10/22 Ordered By: oJsi Ernst Referrals: Francine Singh FNP [Primary Care Provider] - Discharge Diet: Usual diet Discharge Activity: Increase activity as tolerated Patient Instructions: Dehydration (ED), Nonpsychiatric Hallucinations (ED), Opioid Safety Activity Restrictions/Additional Instructions: Thank you for visiting the emergency department. You were seen and evaluated for generalized illness and concern over electrolyte abnormality. Your potassium is actually mildly elevated and there is evidence of dehydration. Additionally, as discussed you do have elevation of your liver enzymes. I recommend ensuring that you are staying hydrated and follow-up with Dr. Ramirez within the next 3 to 5 days with repeat laboratory studies. Please follow-up with your primary care provider as well. Return to the emergency department for uncontrolled symptoms, jaundice, inability to tolerate oral intake, right upper quadrant abdominal pain, or anything else that you are concerned about and feel needs emergency department evaluation. Coding Level of Care Code ED Clerical Car Checker for Thomas Martines
[2022-04-09 21:56] LABS: Basophils # 0.1 10^3/uL (0.0-0.1); Basophils % 0.7 %; Eosinophils # 0.3 10^3/uL (0.0-0.8); Eosinophils % 3.5 %; Hematocrit 46.5 % (37.0-47.0); Hemoglobin 14.3 g/dL (11.5-15.3); Lymphocytes # 2.5 10^3/uL (0.8-4.8); Lymphocytes % 29.2 %; Mean Corpuscular HGB Conc 30.8 g/dL (30.0-36.0); Mean Corpuscular Hemoglobin 27.5 pg (28.0-34.0); Mean Corpuscular Volume 89.4 fl (81-99); Mean Platelet Volume 11.7 fL (7.4-10.4); Monocytes # 0.8 10^3/uL (0.2-0.9); Monocytes % 9.7 %; Neutrophils # 4.85 10^3/uL (1.8-7.7); Neutrophils % 56.3 %; Nucleated Red Blood Cells % 0 %; Platelet Count 399 10^3/cmm (130-400); Red Cell Distribution Width 17.9 % (12.1-15.1); White Blood Count 8.6 10^3/uL (4.0-10.0)
[2022-04-09] MEDS: oxyCODONE 5 mg IR Tab/Cap PO (22:18)
[2022-04-09 22:31] LABS: Albumin Level 3.6 g/dL (3.5-5.2); Alkaline Phosphatase 200 U/L (35-105); Anion Gap 15.5 (5-19); Aspartate Amino Transferase 233 U/L (0-32); Blood Urea Nitrogen 9 mg/dL (6-20); Calcium 9.5 mg/dL (8.5-10.5); Carbon Dioxide 20 mmol/L (22-29); Chloride 103 mmol/L (98-107); Globulin 3.1 g/dL (1.3-4.6); Glomerular Filtration Rate 181.6 mL/min (90-130); Glucose 94 mg/dL (65-115); Magnesium 1.8 mg/dL (1.7-2.3); Osmolality Calculated 274 mOsm/kg (285-295); Potassium 5.5 mmol/L (3.5-5.1); Sodium 133 mmol/L (136-145); Thyroid Stimulating Hormone 1.35 uIU/mL (0.27-4.20); Total Bilirubin 0.8 mg/dL (0.15-1.2); Total Protein 6.7 g/dL (6.6-8.7)
[2022-04-09 22:42] LABS: Alanine Aminotransferase 1179 U/L (0-33)
--- NOTE | 2022-04-09 22:54 | USR_ITS ---
PROCEDURE INFORMATION: Exam: US Abdomen, Limited; Right Upper Quadrant Exam date and time: 04/09/2022 11:07 PM Age: 36 years old Clinical indication: Abdominal pain; Other: Ruq; Additional info: Ruq, biliary, transaminitis TECHNIQUE: Imaging protocol: Real time ultrasound of the abdomen with image documentation. Limited exam focused on the right upper quadrant. COMPARISON: US gall bladder [id number] 04/24/2019 12:49 PM FINDINGS: Liver: Normal. No masses. Gallbladder: Normal. No gallstones. There is no gallbladder wall thickening. Biliary ducts: Normal. No stones. No dilation. Pancreas: Visualized pancreas is unremarkable. Right kidney: Normal. No mass. No hydronephrosis. US/US abdomen limited [id number] IMPRESSION: No acute findings.
[2022-04-09] MEDS: sodium chloride 0.9% 1,000 ML 999 ML IV (23:04)
[2022-04-09 23:18] LABS: Acetaminophen < 5.0 ug/mL (10-30)
[2022-04-09 23:30] LABS: Hepatitis A Antibody IgM Non-Reactive (Nonreactive); Hepatitis B Core IgM Non-Reactive (Nonreactive); Hepatitis B Surface Antigen Non-Reactive (Nonreactive); Hepatitis C Virus Antibody Non-Reactive (Nonreactive)
== END 2022-04-10 00:42 | disposition home or self-care (01) ==
PROVIDERS: Emergency Medicine; Emergency Provider Emergency Medicine; PCP Nurse Practitioner Family
DX: E86.0 Dehydration (principal); R44.3 Hallucinations, unspecified; R74.01 Elevation of levels of liver transaminase levels
CPT/HCPCS: 76705; 80053; 80074; 80307; 83735; 84443; 85025; 96360; 99285; J7040

== ENCOUNTER 2022-04-11 07:58 | Oncology outpatient (recurring) (ONCR) | payer MEDICARE, MEDICAID, SELFPAY ==
[2022-04-11] VITALS (10 sets, daily range): BP systolic 91–129; BP diastolic 65–85; PULSE 65–116; RESP 16–18; TEMP 36.1–36.8; O2SAT 98–100; BMI 23.3
[2022-04-11] MEDS: oxyCODONE 5 mg IR Tab/Cap 10 MG PO ×2 (08:46→14:43)
[2022-04-11 08:56] LABS: Basophils # 0.1 10^3/uL (0.0-0.1); Basophils % 0.7 %; Eosinophils # 0.4 10^3/uL (0.0-0.8); Eosinophils % 5.5 %; Hematocrit 39.2 % (37.0-47.0); Hemoglobin 12.4 g/dL (11.5-15.3); Lymphocytes # 2.3 10^3/uL (0.8-4.8); Lymphocytes % 29.8 %; Mean Corpuscular HGB Conc 31.6 g/dL (30.0-36.0); Mean Corpuscular Hemoglobin 27.7 pg (28.0-34.0); Mean Corpuscular Volume 87.7 fl (81-99); Mean Platelet Volume 11.1 fL (7.4-10.4); Monocytes # 0.9 10^3/uL (0.2-0.9); Monocytes % 11.3 %; Neutrophils # 4.01 10^3/uL (1.8-7.7); Neutrophils % 52.2 %; Nucleated Red Blood Cells % 0 %; Platelet Count 321 10^3/cmm (130-400); Red Blood Count 4.47 10^6/uL (4.1-5.3); Red Cell Distribution Width 17.1 % (12.1-15.1); White Blood Count 7.7 10^3/uL (4.0-10.0)
[2022-04-11 09:01] LABS: Albumin Level 3.7 g/dL (3.5-5.2); Alkaline Phosphatase 191 U/L (35-105); Aspartate Amino Transferase 102 U/L (0-32); Blood Urea Nitrogen 8 mg/dL (6-20); Calcium 9.4 mg/dL (8.5-10.5); Carbon Dioxide 22 mmol/L (22-29); Chloride 100 mmol/L (98-107); Glomerular Filtration Rate 140.4 mL/min (90-130); Glucose 137 mg/dL (65-115); Osmolality Calculated 276 mOsm/kg (285-295); Sodium 133 mmol/L (136-145); Total Bilirubin 0.7 mg/dL (0.15-1.2); Total Protein 6.7 g/dL (6.6-8.7)
[2022-04-11 09:29] LABS: Alanine Aminotransferase 781 U/L (0-33)
[2022-04-11 09:33] LABS: 25 Hydroxy Vitamin D 46 ng/mL (30-100)
[2022-04-11] MEDS: sodium chloride 0.9% 1,000 ML 999 ML IV (09:54)
[2022-04-11] MEDS: famotidine 20 mg Tablet PO (09:58)
[2022-04-11] MEDS: diphenhydrAMINE 25 mg Capsule 50 MG PO (09:58)
[2022-04-11] MEDS: ondansetron 2 mg/ML SDV 2 mL 8 MG IVP (10:01)
== END 2022-04-12 12:52 | disposition home or self-care (01) ==
PROVIDERS: Internal Medicine Medical Oncology; PCP Nurse Practitioner Family; Visit Provider Nurse Practitioner Family
DX: E00-E89 Endocrine, nutritional and metabolic diseases (principal); D50.9 Iron deficiency anemia, unspecified; Z79.899 Other long term (current) drug therapy
CPT/HCPCS: 80053; 82306; 85025; 96365; 96366; 96375; J1322; J2405; J7030; J7050

== ENCOUNTER 2022-04-18 08:01 | Oncology outpatient (recurring) (ONCR) | payer MEDICARE, MEDICAID, SELFPAY ==
[2022-04-18] VITALS (9 sets, daily range): BP systolic 148–162; BP diastolic 102–118; PULSE 87–118; RESP 16–18; TEMP 36–37.2; O2SAT 95–99; BMI 22.9
[2022-04-18 08:20] LABS: Basophils # 0.1 10^3/uL (0.0-0.1); Basophils % 1.1 %; Eosinophils # 0.1 10^3/uL (0.0-0.8); Hematocrit 44.2 % (37.0-47.0); Hemoglobin 13.9 g/dL (11.5-15.3); Lymphocytes # 3.6 10^3/uL (0.8-4.8); Lymphocytes % 36.2 %; Mean Corpuscular HGB Conc 31.4 g/dL (30.0-36.0); Mean Corpuscular Hemoglobin 27.3 pg (28.0-34.0); Mean Corpuscular Volume 86.8 fl (81-99); Mean Platelet Volume 11.3 fL (7.4-10.4); Monocytes # 0.8 10^3/uL (0.2-0.9); Monocytes % 7.7 %; Neutrophils % 53.6 %; Nucleated Red Blood Cells % 0 %; Platelet Count 315 10^3/cmm (130-400); Red Blood Count 5.09 10^6/uL (4.1-5.3); Red Cell Distribution Width 16.6 % (12.1-15.1); White Blood Count 9.9 10^3/uL (4.0-10.0)
[2022-04-18 08:36] LABS: Alanine Aminotransferase 179 U/L (0-33); Alkaline Phosphatase 155 U/L (35-105); Anion Gap 17.1 (5-19); Aspartate Amino Transferase 40 U/L (0-32); Blood Urea Nitrogen 8 mg/dL (6-20); Calcium 9.9 mg/dL (8.5-10.5); Carbon Dioxide 22 mmol/L (22-29); Chloride 100 mmol/L (98-107); Globulin 3.9 g/dL (1.3-4.6); Glomerular Filtration Rate 113.8 mL/min (90-130); Glucose 87 mg/dL (65-115); Osmolality Calculated 278 mOsm/kg (285-295); Potassium 4.1 mmol/L (3.5-5.1); Sodium 135 mmol/L (136-145); Total Bilirubin 0.7 mg/dL (0.15-1.2); Total Protein 7.9 g/dL (6.6-8.7)
[2022-04-18] MEDS: diphenhydrAMINE 25 mg Capsule 50 MG PO (08:52)
[2022-04-18] MEDS: LORazepam 0.5 mg Tablet PO ×2 (08:52→12:43)
[2022-04-18] MEDS: famotidine 20 mg Tablet PO (08:52)
[2022-04-18] MEDS: sodium chloride 0.9% 500 ML 75 ML IV (08:53)
[2022-04-18] MEDS: ondansetron 2 mg/ML SDV 2 mL 8 MG IVP (08:56)
[2022-04-18] MEDS: oxyCODONE 5 mg IR Tab/Cap 10 MG PO (09:10)
[2022-04-18] MEDS: lisinopril 2.5 mg Tablet PO (10:17)
== END 2022-04-19 11:12 | disposition home or self-care (01) ==
LOC: ONCMED 08:02
PROVIDERS: Internal Medicine Medical Oncology; PCP Nurse Practitioner Family; Visit Provider Nurse Practitioner Family
DX: E00-E89 Endocrine, nutritional and metabolic diseases (principal); D50.9 Iron deficiency anemia, unspecified; Z79.899 Other long term (current) drug therapy
CPT/HCPCS: 80053; 85025; 96365; 96366; 96375; J1322; J2405; J7040; J7050

== ENCOUNTER 2022-04-25 08:03 | Oncology outpatient (recurring) (ONCR) | payer MEDICARE, MEDICAID, SELFPAY ==
[2022-04-25] VITALS (9 sets, daily range): BP systolic 116–147; BP diastolic 82–105; PULSE 91–114; RESP 16; TEMP 36.4–37.1; O2SAT 96–98; BMI 24.0
[2022-04-25] MEDS: sodium chloride 0.9% 500 ML 75 ML IV (08:38)
[2022-04-25] MEDS: diphenhydrAMINE 25 mg Capsule 50 MG PO (08:41)
[2022-04-25] MEDS: famotidine 20 mg Tablet PO (08:42)
[2022-04-25] MEDS: oxyCODONE 5 mg IR Tab/Cap 10 MG PO (08:42)
[2022-04-25] MEDS: ondansetron 2 mg/ML SDV 2 mL 8 MG IVP (08:45)
[2022-04-25] MEDS: LORazepam 0.5 mg Tablet PO (10:30)
== END 2022-04-26 10:22 | disposition home or self-care (01) ==
LOC: ONCMED 08:03
PROVIDERS: PCP Nurse Practitioner Family; Visit Provider Nurse Practitioner Family
DX: E00-E89 Endocrine, nutritional and metabolic diseases (principal); D50.9 Iron deficiency anemia, unspecified; Z79.899 Other long term (current) drug therapy
CPT/HCPCS: 96365; 96366; 96375; J1322; J2405; J7040; J7050

== ENCOUNTER 2022-05-02 08:21 | Oncology outpatient (recurring) (ONCR) | payer MEDICARE, MEDICAID, SELFPAY ==
[2022-05-02] VITALS (9 sets, daily range): BP systolic 116–135; BP diastolic 87–96; PULSE 88–107; RESP 16–18; TEMP 35.8–36.6; O2SAT 95–99; BMI 22.6
[2022-05-02] MEDS: sodium chloride 0.9% 500 ML 75 ML IV (09:05)
[2022-05-02] MEDS: famotidine 20 mg Tablet PO (09:08)
[2022-05-02] MEDS: LORazepam 0.5 mg Tablet PO (09:08)
[2022-05-02] MEDS: diphenhydrAMINE 25 mg Capsule 50 MG PO (09:08)
[2022-05-02] MEDS: ondansetron 2 mg/ML SDV 2 mL 8 MG IVP (09:10)
[2022-05-02] MEDS: oxyCODONE 5 mg IR Tab/Cap 10 MG PO (09:19)
== END 2022-05-03 09:44 | disposition home or self-care (01) ==
LOC: ONCMED 08:21
PROVIDERS: PCP Nurse Practitioner Family; Visit Provider Nurse Practitioner Family
DX: E00-E89 Endocrine, nutritional and metabolic diseases (principal); D50.9 Iron deficiency anemia, unspecified; Z79.899 Other long term (current) drug therapy
CPT/HCPCS: 96365; 96366; 96375; J1322; J2405; J7040; J7050

== ENCOUNTER 2022-05-10 08:08 | Oncology outpatient (recurring) (ONCR) | payer MEDICARE, MEDICAID, SELFPAY ==
[2022-05-10] VITALS (9 sets, daily range): BP systolic 93–136; BP diastolic 65–95; PULSE 95–108; RESP 16–18; TEMP 35.9–36.8; O2SAT 95–98; BMI 23.1
[2022-05-10] MEDS: sodium chloride 0.9% 500 ML 75 ML IV (08:50)
[2022-05-10] MEDS: oxyCODONE 5 mg IR Tab/Cap 10 MG PO (08:54)
[2022-05-10] MEDS: diphenhydrAMINE 25 mg Capsule 50 MG PO (08:54)
[2022-05-10] MEDS: famotidine 20 mg Tablet PO (08:55)
[2022-05-10] MEDS: ondansetron 2 mg/ML SDV 2 mL 8 MG IVP (08:57)
[2022-05-10] MEDS: LORazepam 0.5 mg Tablet PO (10:29)
== END 2022-05-11 10:01 | disposition home or self-care (01) ==
LOC: ONCMED 08:09
PROVIDERS: PCP Nurse Practitioner Family; Visit Provider Nurse Practitioner Family
DX: E00-E89 Endocrine, nutritional and metabolic diseases (principal); D50.9 Iron deficiency anemia, unspecified; Z79.899 Other long term (current) drug therapy; G43.711 Chronic migraine without aura, intractable, with status migrainosus; F32.9 Major depressive disorder, single episode, unspecified; F28 Other psychotic disorder not due to a substance or known physiological condition
CPT/HCPCS: 64615; 96365; 96366; 96375; 99214; J0585; J1322; J2405; J7040; J7050

== ENCOUNTER 2022-05-26 11:43 | Emergency (ER) | payer MEDICARE, MEDICAID, SELFPAY ==
[2022-05-26 12:23] VITALS: BP 122/74; PULSE 92; RESP 17; TEMP 36.6; O2SAT 97; BMI 22.6
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
[2022-05-26 13:31] VITALS: BP 104/71; PULSE 114; TEMP 36.3; O2SAT 96
[2022-05-26] MEDS: HYDROcodone-acetaminophen 7.5-325 mg Tablet 1 TAB PO (13:37)
[2022-05-26 14:18] LABS: Basophils # 0.1 10^3/uL (0.0-0.1); Basophils % 0.5 %; Eosinophils % 0.1 %; Hematocrit 40.4 % (37.0-47.0); Lymphocytes % 11.1 %; Mean Corpuscular HGB Conc 32.2 g/dL (30.0-36.0); Mean Corpuscular Hemoglobin 27.1 pg (28.0-34.0); Mean Corpuscular Volume 84.2 fl (81-99); Mean Platelet Volume 11.6 fL (7.4-10.4); Monocytes # 1.4 10^3/uL (0.2-0.9); Monocytes % 7.6 %; Neutrophils # 13.83 10^3/uL (1.8-7.7); Neutrophils % 77.7 %; Nucleated Red Blood Cells % 0 %; Platelet Count 350 10^3/cmm (130-400); Red Cell Distribution Width 15.9 % (12.1-15.1); White Blood Count 17.8 10^3/uL (4.0-10.0)
[2022-05-26 14:46] LABS: Alanine Aminotransferase 6 U/L (0-33); Albumin Level 3.2 g/dL (3.5-5.2); Alkaline Phosphatase 133 U/L (35-105); Anion Gap 26.4 (5-19); Aspartate Amino Transferase 17 U/L (0-32); Blood Urea Nitrogen 15 mg/dL (6-20); Calcium 9.4 mg/dL (8.5-10.5); Carbon Dioxide 19 mmol/L (22-29); Chloride 88 mmol/L (98-107); Globulin 4.3 g/dL (1.3-4.6); Glomerular Filtration Rate 181.6 mL/min (90-130); Glucose 70 mg/dL (65-115); Osmolality Calculated 269 mOsm/kg (285-295); Potassium 3.4 mmol/L (3.5-5.1); Sodium 130 mmol/L (136-145); Total Bilirubin 0.9 mg/dL (0.15-1.2); Total Protein 7.5 g/dL (6.6-8.7)
[2022-05-26] MEDS: sodium chloride 0.9% 1,000 ML 999 ML IV (16:39)
[2022-05-26 17:30] VITALS: BP 113/76; PULSE 79; RESP 16; TEMP 36.9; O2SAT 99
[2022-05-26 18:05] VITALS: BP 113/76; PULSE 79; RESP 16; TEMP 36.9; O2SAT 99
--- NOTE | 2022-05-28 10:44 | DCPLANNER ---
Addendum entered by Syeda Cadet 05/31/22 12:01: Patient had a follow up appointment scheduled with ortho - patient did attend appointment. Original Note: e commerce marketing manager had message to schedule a follow up appointment for patient with ortho. e commerce marketing manager sent patients information to the front office staff at ortho. Patients information will be printed and reviewed. Clinic will call patient with appointment information.
== END 2022-05-26 18:06 | disposition home or self-care (01) ==
PROVIDERS: Physician Assistant; Emergency Provider Physician Assistant; PCP Nurse Practitioner Family
DX: S82.142A Displaced bicondylar fracture of left tibia, initial encounter for closed fracture (principal); Z79.01 Long term (current) use of anticoagulants; I10 Essential (primary) hypertension; Z96.643 Presence of artificial hip joint, bilateral; V89.2XXA Person injured in unspecified motor-vehicle accident, traffic, initial encounter
CPT/HCPCS: 29530; 36415; 73562; 80053; 85025; 99283; J7030

== ENCOUNTER 2022-05-29 08:00 | Oncology outpatient (recurring) (ONCR) | payer MEDICARE, MEDICAID, SELFPAY ==
[2022-05-16] VITALS (9 sets, daily range): BP systolic 102–146; BP diastolic 70–109; PULSE 72–90; RESP 16; TEMP 36.3–37.1; O2SAT 96–99; BMI 22.6
[2022-05-16] MEDS: sodium chloride 0.9% 500 ML 75 ML IV (08:25)
[2022-05-16] MEDS: diphenhydrAMINE 25 mg Capsule 50 MG PO (08:28)
[2022-05-16] MEDS: famotidine 20 mg Tablet PO (08:28)
[2022-05-16] MEDS: ondansetron 2 mg/ML SDV 2 mL 8 MG IVP (08:30)
[2022-05-16] MEDS: oxyCODONE 5 mg IR Tab/Cap 10 MG PO (08:55)
--- NOTE | 2022-05-24 16:54 | PC.NURSE ---
Patient did not show up for treatment today. THis nurse called the patient this morning and there was no answer. THis nurse left a voice message for her to return my call. Upon going home for the day this nurse has not heard back from the patient. THis nurse will attempt to call patient tomorrow to check on her.
[2022-05-29] VITALS (9 sets, daily range): BP systolic 100–116; BP diastolic 53–81; PULSE 76–84; RESP 16–18; TEMP 35.8–36.5; O2SAT 95–99; BMI 21.1
[2022-05-29 08:42] LABS: Basophils # 0.1 10^3/uL (0.0-0.1); Basophils % 0.4 %; Eosinophils # 0.4 10^3/uL (0.0-0.8); Eosinophils % 1.2 %; Hematocrit 35.8 % (37.0-47.0); Hemoglobin 11.6 g/dL (11.5-15.3); Lymphocytes # 1.6 10^3/uL (0.8-4.8); Lymphocytes % 5.1 %; Mean Corpuscular HGB Conc 32.4 g/dL (30.0-36.0); Mean Corpuscular Hemoglobin 27.6 pg (28.0-34.0); Mean Corpuscular Volume 85.2 fl (81-99); Mean Platelet Volume 10.9 fL (7.4-10.4); Monocytes # 1.4 10^3/uL (0.2-0.9); Monocytes % 4.6 %; Neutrophils # 26.33 10^3/uL (1.8-7.7); Neutrophils % 85.7 %; Nucleated Red Blood Cells % 0 %; Platelet Count 360 10^3/cmm (130-400); Red Cell Distribution Width 15.7 % (12.1-15.1)
[2022-05-29 08:48] LABS: White Blood Count 30.7 10^3/uL (4.0-10.0)
[2022-05-29 09:08] LABS: Alanine Aminotransferase 15 U/L (0-33); Albumin Level 2.4 g/dL (3.5-5.2); Alkaline Phosphatase 130 U/L (35-105); Aspartate Amino Transferase 23 U/L (0-32); Blood Urea Nitrogen 18 mg/dL (6-20); Calcium 8.6 mg/dL (8.5-10.5); Carbon Dioxide 24 mmol/L (22-29); Chloride 96 mmol/L (98-107); Globulin 4.4 g/dL (1.3-4.6); Glomerular Filtration Rate 140.4 mL/min (90-130); Glucose 102 mg/dL (65-115); Osmolality Calculated 276 mOsm/kg (285-295); Sodium 132 mmol/L (136-145); Total Bilirubin 0.7 mg/dL (0.15-1.2); Total Protein 6.8 g/dL (6.6-8.7)
[2022-05-29] MEDS: oxyCODONE 5 mg IR Tab/Cap 10 MG PO ×2 (09:51→16:15)
[2022-05-29] MEDS: potassium chloride 40 MEQ in sodium chloride 0.9% 500 ML 260 MEQ IV (11:53)
[2022-05-29] MEDS: diphenhydrAMINE 25 mg Capsule 50 MG PO (12:04)
[2022-05-29] MEDS: famotidine 20 mg Tablet PO (12:05)
[2022-05-29] MEDS: ondansetron 2 mg/ML SDV 2 mL 8 MG IVP (12:24)
[2022-05-29] MEDS: sodium chloride 0.9% 500 ML 75 ML IV (12:30)
[2022-05-29] MEDS: LORazepam 0.5 mg Tablet PO (13:29)
== END 2022-05-31 10:52 | disposition home or self-care (01) ==
PROVIDERS: Internal Medicine Medical Oncology; PCP Nurse Practitioner Family; Visit Provider Nurse Practitioner Family
DX: E00-E89 Endocrine, nutritional and metabolic diseases (principal); R44.3 Hallucinations, unspecified; S82.092A Other fracture of left patella, initial encounter for closed fracture; Z79.899 Other long term (current) drug therapy; Z86.16 Personal history of COVID-19; M17.12 Unilateral primary osteoarthritis, left knee; S83.92XA Sprain of unspecified site of left knee, initial encounter; V49.9XXA Car occupant (driver) (passenger) injured in unspecified traffic accident, initial encounter
CPT/HCPCS: 80053; 85025; 96365; 96366; 96367; 96375; 99203; 99214; J1322; J2405; J3480; J7040; J7050

== ENCOUNTER 2022-06-27 08:02 | Oncology outpatient (recurring) (ONCR) | payer MEDICARE, MEDICAID, SELFPAY ==
[2022-06-27] VITALS (11 sets, daily range): BP systolic 131–157; BP diastolic 85–107; PULSE 140–153; RESP 16–18; TEMP 36.8–37.6; O2SAT 95–100; BMI 20.9
[2022-06-27 08:40] LABS: Basophils # 0.2 10^3/uL (0.0-0.1); Basophils % 0.9 %; Eosinophils # 0.2 10^3/uL (0.0-0.8); Eosinophils % 1.3 %; Hemoglobin 10.6 g/dL (11.5-15.3); Lymphocytes # 2.8 10^3/uL (0.8-4.8); Lymphocytes % 16.1 %; Mean Corpuscular HGB Conc 31.2 g/dL (30.0-36.0); Mean Corpuscular Hemoglobin 27.1 pg (28.0-34.0); Mean Platelet Volume 9.8 fL (7.4-10.4); Monocytes # 1.4 10^3/uL (0.2-0.9); Neutrophils # 12.53 10^3/uL (1.8-7.7); Nucleated Red Blood Cells % 0 %; Platelet Count 857 10^3/cmm (130-400); Red Blood Count 3.91 10^6/uL (4.1-5.3); White Blood Count 17.4 10^3/uL (4.0-10.0)
[2022-06-27 09:04] LABS: Alanine Aminotransferase 14 U/L (0-33); Albumin Level 2.7 g/dL (3.5-5.2); Alkaline Phosphatase 300 U/L (35-105); Aspartate Amino Transferase 30 U/L (0-32); Blood Urea Nitrogen 8 mg/dL (6-20); Calcium 9.3 mg/dL (8.5-10.5); Carbon Dioxide 22 mmol/L (22-29); Chloride 93 mmol/L (98-107); Globulin 5.9 g/dL (1.3-4.6); Glomerular Filtration Rate 253.2 mL/min (90-130); Glucose 95 mg/dL (65-115); Osmolality Calculated 262 mOsm/kg (285-295); Sodium 127 mmol/L (136-145); Total Bilirubin 0.3 mg/dL (0.15-1.2); Total Protein 8.6 g/dL (6.6-8.7)
[2022-06-27] MEDS: sodium chloride 0.9% 500 ML 75 ML IV (10:49)
[2022-06-27] MEDS: oxyCODONE 5 mg IR Tab/Cap 10 MG PO ×2 (10:52→14:33)
[2022-06-27] MEDS: famotidine 20 mg Tablet PO (10:54)
[2022-06-27] MEDS: diphenhydrAMINE 50 mg/mL SDV 1mL 25 MG IVP (10:55)
[2022-06-27] MEDS: ondansetron 2 mg/ML SDV 2 mL 8 MG IVP (11:01)
[2022-06-27 11:03] LABS: Erythrocyte Sedimentation Rate 76 mm/hr (0-15)
[2022-06-27 11:20] LABS: Ferritin 513 ng/mL (15-150); Iron 14 ug/dL (37-145); Percent Saturation 7.8 % (20-50); Total Iron Binding Capacity 179 mcg/dl; Unsaturated Iron Binding 165 ug/dL (112-347)
[2022-06-27 11:36] LABS: Vitamin B12 512 pg/mL (232-1245)
[2022-06-27] MEDS: LORazepam 0.5 mg Tablet PO (13:24)
== END 2022-07-03 23:59 | disposition home or self-care (01) ==
PROVIDERS: Internal Medicine Medical Oncology; PCP Nurse Practitioner Family; Visit Provider Nurse Practitioner
DX: E00-E89 Endocrine, nutritional and metabolic diseases (principal); D50.9 Iron deficiency anemia, unspecified; M25.59 Pain in other specified joint; Z79.891 Long term (current) use of opiate analgesic; Z79.899 Other long term (current) drug therapy; Z86.16 Personal history of COVID-19; Z86.19 Personal history of other infectious and parasitic diseases; Z95.828 Presence of other vascular implants and grafts
CPT/HCPCS: 80053; 82607; 82728; 83540; 83550; 85025; 85651; 96365; 96366; 96375; 99214; 99215; J1200; J1322; J2405; J7040; J7050

== ENCOUNTER 2022-08-01 08:07 | Oncology outpatient (recurring) (ONCR) | payer MEDICARE, OTHER, MEDICAID, SELFPAY ==
[2022-07-04] VITALS (9 sets, daily range): BP systolic 107–125; BP diastolic 74–88; PULSE 103–142; RESP 16; TEMP 36.3–37.3; O2SAT 97–99; BMI 20.5
[2022-07-04] MEDS: sodium chloride 0.9% 500 ML 75 ML IV (08:30)
[2022-07-04] MEDS: diphenhydrAMINE 25 mg Capsule 50 MG PO (08:31)
[2022-07-04] MEDS: famotidine 20 mg Tablet PO (08:31)
[2022-07-04] MEDS: oxyCODONE 5 mg IR Tab/Cap 10 MG PO (08:32)
[2022-07-04] MEDS: ondansetron 2 mg/ML SDV 2 mL 8 MG IVP (08:37)
[2022-07-04] MEDS: LORazepam 0.5 mg Tablet PO (09:39)
[2022-07-11] VITALS (9 sets, daily range): BP systolic 119–152; BP diastolic 88–101; PULSE 102–133; RESP 16–18; TEMP 36.4–37; O2SAT 97–100; BMI 18.7
--- NOTE | 2022-07-11 08:29 | PC.PHAR ---
changed vimizim dose to 55mg. tx plan did not respect recent weight loss. will continue to monitor.
[2022-07-11] MEDS: sodium chloride 0.9% 500 ML 75 ML IV (08:37)
[2022-07-11] MEDS: diphenhydrAMINE 25 mg Capsule 50 MG PO (08:43)
[2022-07-11] MEDS: famotidine 20 mg Tablet PO (08:43)
[2022-07-11] MEDS: ondansetron 2 mg/ML SDV 2 mL 8 MG IVP (08:44)
[2022-07-11] MEDS: oxyCODONE 5 mg IR Tab/Cap 10 MG PO (08:59)
[2022-07-11] MEDS: LORazepam 0.5 mg Tablet PO (09:00)
[2022-07-18] VITALS (8 sets, daily range): BP systolic 95–141; BP diastolic 66–100; PULSE 98–127; RESP 16–18; TEMP 36.4–36.9; O2SAT 16–99; BMI 22.0
[2022-07-18] MEDS: sodium chloride 0.9% 500 ML 75 ML IV (08:27)
[2022-07-18] MEDS: famotidine 20 mg Tablet PO (08:29)
[2022-07-18] MEDS: diphenhydrAMINE 25 mg Capsule 50 MG PO (08:29)
[2022-07-18] MEDS: ondansetron 2 mg/ML SDV 2 mL 8 MG IVP (08:31)
[2022-07-18] MEDS: oxyCODONE 5 mg IR Tab/Cap 10 MG PO (08:43)
[2022-07-18] MEDS: LORazepam 0.5 mg Tablet PO (10:59)
[2022-07-25] VITALS (12 sets, daily range): BP systolic 86–116; BP diastolic 58–83; PULSE 69–114; RESP 16–18; TEMP 36.3–37.2; O2SAT 95–99; BMI 21.3
[2022-07-25] MEDS: sodium chloride 0.9% 500 ML 75 ML IV (08:31)
[2022-07-25] MEDS: famotidine 20 mg Tablet PO (08:34)
[2022-07-25] MEDS: diphenhydrAMINE 25 mg Capsule 50 MG PO (08:34)
[2022-07-25] MEDS: oxyCODONE 5 mg IR Tab/Cap 10 MG PO (08:35)
[2022-07-25] MEDS: ondansetron 2 mg/ML SDV 2 mL 8 MG IVP (08:40)
[2022-07-25] MEDS: sodium chloride 0.9% 250 ML 150 ML IV (12:29)
[2022-08-01] VITALS (11 sets, daily range): BP systolic 95–122; BP diastolic 69–86; PULSE 86–124; RESP 16–18; TEMP 36.6–37.3; O2SAT 93–100; BMI 21.3
[2022-08-01] MEDS: sodium chloride 0.9% 500 ML 75 ML IV (08:34)
[2022-08-01] MEDS: diphenhydrAMINE 25 mg Capsule 50 MG PO (08:36)
[2022-08-01] MEDS: famotidine 20 mg Tablet PO (08:36)
[2022-08-01] MEDS: ondansetron 2 mg/ML SDV 2 mL 8 MG IVP (08:39)
[2022-08-01] MEDS: oxyCODONE 5 mg IR Tab/Cap PO (08:50)
[2022-08-01] MEDS: LORazepam 0.5 mg Tablet PO (12:24)
== END 2022-08-03 23:59 | disposition home or self-care (01) ==
PROVIDERS: PCP Nurse Practitioner Family; Visit Provider Nurse Practitioner
DX: E00-E89 Endocrine, nutritional and metabolic diseases (principal); D50.9 Iron deficiency anemia, unspecified; Z79.899 Other long term (current) drug therapy
CPT/HCPCS: 96365; 96366; 96375; J1322; J2405; J7040; J7050

== ENCOUNTER → 2022-08-02 14:15 | Outpatient (BNVA) | payer MEDICARE, MEDICAID, SELFPAY | PROVIDERS: PCP Nurse Practitioner Family; Visit Provider Specialist | DX: G43.711 Chronic migraine without aura, intractable, with status migrainosus (principal); Z86.14 Personal history of Methicillin resistant Staphylococcus aureus infection; Z98.890 Other specified postprocedural states | CPT/HCPCS: 64615; 99213 ==

== ENCOUNTER 2022-08-08 08:19 | Oncology outpatient (recurring) (ONCR) | payer MEDICARE, MEDICAID, SELFPAY ==
[2022-08-08] VITALS (10 sets, daily range): BP systolic 121–139; BP diastolic 72–102; PULSE 76–124; RESP 16–18; TEMP 37.5–37.9; O2SAT 96–100; BMI 20.4
[2022-08-08] MEDS: sodium chloride 0.9% 500 ML 75 ML IV (08:49)
[2022-08-08] MEDS: famotidine 20 mg Tablet PO (08:50)
[2022-08-08] MEDS: diphenhydrAMINE 25 mg Capsule 50 MG PO (08:51)
[2022-08-08] MEDS: ondansetron 2 mg/ML SDV 2 mL 8 MG IVP (08:52)
[2022-08-08] MEDS: oxyCODONE 5 mg IR Tab/Cap 10 MG PO (09:01)
[2022-08-08] MEDS: LORazepam 0.5 mg Tablet PO (10:11)
== END 2022-08-16 16:47 | disposition home or self-care (01) ==
LOC: ONCMED 08:19
PROVIDERS: PCP Nurse Practitioner Family; Visit Provider Nurse Practitioner
DX: E00-E89 Endocrine, nutritional and metabolic diseases (principal); D50.9 Iron deficiency anemia, unspecified; Z79.899 Other long term (current) drug therapy
CPT/HCPCS: 96365; 96366; 96375; J1322; J2405; J7040; J7050

== ENCOUNTER 2022-08-10 20:24 | Emergency (ER) | payer MEDICARE, MEDICAID, SELFPAY ==
[2022-08-10 20:34] VITALS: BP 117/68; PULSE 77; RESP 18; TEMP 37.4; O2SAT 97; BMI 2943.8
--- NOTE | 2022-08-10 20:48 | CTR_ITS ---
PROCEDURE INFORMATION: Exam: CT Thoracic Spine Without Contrast Exam date and time: 08/10/2022 9:40 PM Age: 36 years old Clinical indication: Pain in thoracic spine; Prior surgery; Surgery type: Spinal fusion; Additional info: Extremity numbness, back pain, history of Morquio syndrome. TECHNIQUE: Imaging protocol: Computed tomography of the thoracic spine without contrast. Radiation optimization: All CT scans at this facility use at least one of these dose optimization techniques: automated exposure control; mA and/or kV adjustment per patient size (includes targeted exams where dose is matched to clinical indication); or iterative reconstruction. REPORTING DATA: Count of CT and Cardiac NM exams in prior 12 months: This patient has received [address] and 0 known cardiac nuclear medicine studies in the 12 months prior to the current study. COMPARISON: CT abdomen pelvis w con* [id number] 04/20/2019 1:53 PM, CT chest, abdomen pelvis dated March 19, 2014 is not available March 19, 2014 report says there were no thoracic fractures. RADIATION DOSE METRICS: Total DLP (mGy-cm): 278.05 FINDINGS: Bones/joints: Continued osteopenia/osteoporosis with deformity of multiple thoracic vertebrae. Metallic fixation of cervical spine. 100% compression fracture in the anterior portion of T3 vertebral body of indeterminate age. This area is not visualized on any comparison imaging. New since 2013 based on the 2013 x-ray report. Prominent soft tissue thickening anterior, right anterolateral and left anterolateral to the T3 fracture with some small bony fragments consistent with infectious process with phlegmon/osteomyelitis/T3-T4 discitis versus hemorrhage from recent fracture versus neoplastic process. Poorly visualized probable severe central spinal stenosis at T3-T4 secondary to epidural abscess, hemorrhage or tumor which may be a circumferential epidural process. Axial series 5, images 24-28. Soft tissues: Unremarkable. Lymph nodes: Moderate mediastinal adenopathy which may be reactive versus neoplastic. Pleural spaces: Mild bilateral pleural fluid collections. CT/CT thoracic spin wo con* [id number] IMPRESSION: 1. Continued osteopenia/osteoporosis with deformity of multiple thoracic vertebrae. 2. 100% pathologic compression fracture in the anterior portion of T3 vertebral body of indeterminate age. This area is not visualized on any comparison imaging. New since 2013 based on the 2013 x-ray report. 3. Prominent soft tissue thickening anterior, right anterolateral and left anterolateral to the T3 fracture with some small bony fragments consistent with infectious process with phlegmon/osteomyelitis/T3-T4 discitis versus hemorrhage from recent fracture versus neoplastic process. 4. Poorly visualized probable severe central spinal stenosis at T3-T4 secondary to epidural abscess, hemorrhage or tumor which may be a circumferential epidural process. Axial series 5, images 24-28. 5. Mild bilateral pleural fluid collections. 6. Moderate mediastinal adenopathy which may be reactive versus neoplastic. 7. Loss of disc space height that T3-T4 with loss of bone in both vertebral bodies most consistent with osteomyelitis/infectious discitis.
--- NOTE | 2022-08-10 20:48 | CTR_ITS ---
PROCEDURE INFORMATION: Exam: CT Lumbar Spine Without Contrast Exam date and time: 08/10/2022 9:46 PM Age: 36 years old Clinical indication: Low back pain; Prior surgery; Surgery type: Spinal fusion; Additional info: Ext. Numbness, back pain, Morquio syndrome. TECHNIQUE: Imaging protocol: Computed tomography of the lumbar spine without contrast. Radiation optimization: All CT scans at this facility use at least one of these dose optimization techniques: automated exposure control; mA and/or kV adjustment per patient size (includes targeted exams where dose is matched to clinical indication); or iterative reconstruction. REPORTING DATA: Count of CT and Cardiac NM exams in prior 12 months: This patient has received [address] and 0 known cardiac nuclear medicine studies in the 12 months prior to the current study. COMPARISON: CT thoracic spin wo con* [id number] 08/10/2022 9:40 PM, CT abdomen pelvis dated April 20, 2019. 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 Continued osteopenia/osteoporosis. Stable bilateral total hip replacement. Soft tissues: Unremarkable. CT/CT lumbar spine wo con* [id number] IMPRESSION: 1. 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 2. Continued osteopenia/osteoporosis.
--- NOTE | 2022-08-10 20:50 | W.ED.BACK ---
HPI - Back Pain/Injury General: Chief Complaint: Back Pain/Injury Stated Complaint: BACK PAIN Time Seen by Provider: 08/10/22 20:38 History of Present Illness: 36-year-old female comes in today for complaints of back pain and lower extremity numbness. 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 Patient recently been hospitalized about 1-1/2 months ago for MRSA in the left knee. She had spent some rehab at [facility]. Patient reports yesterday she started having some increased pain in the back which caused spasms. Patient has been unable to get around easily today. Patient reports decreased oral intake. Patient reports no elevated temperature greater than 100. Patient reports no problems with urination or bowel movements. Associated symptoms: Deny abdominal pain or fever(s) Review of Systems General: Reports: 10 or more systems reviewed and unremarkable except in HPI and below Const: Denies: fever(s) ENMT: Denies: throat pain Card: Denies: chest pain Resp: Denies: dyspnea GI: Denies: abdominal pain : Denies: difficulty voiding Musc: Reports: back pain Skin/Breast: Denies: rash Neuro: Reports: numbness in extremities (Bilateral lower extremities) PFSH ED PFSH: Medical History Anxiety and depression Asthma 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 Chronic migraine Chronic musculoskeletal pain Gastroparesis History of hip fracture History of pulmonary embolism Hypertension Mucopolysaccharidosis 4 Mucopolysaccharidosis 4 Transaminitis History of transaminitis, presumed secondary to acetaminophen Surgical History History of neck surgery History of right hip replacement History of spinal fusion In 2000 and in 2002 History of surgery on lower extremity (1998) Right leg surgery History of total left hip arthroplasty (12/2015) History of total right hip arthroplasty (03/2016) Port-A-Cath in place Family History Father Clotting disorder Hyperlipidemia Mother Hyperlipidemia Other Cancer Diabetes Hypertension Stroke Denies family history of CAD (coronary artery disease) Dementia Psychiatric illness Chronic kidney disease (CKD) Suicide Anesthesia complication Bleeding disorder Lung disease Social History Smoking and tobacco status: never smoked Second hand smoke exposure: Yes Alcohol intake: current Alcohol intake frequency: holidays/special occasions only Physical Exam Const: COMMON NORMALS: alert HENMT: COMMON NORMALS: normocephalic HEAD & SCALP: normocephalic Neck/C-Spine: COMMON NORMALS: full ROM Chest: COMMONS NORMALS: normal palpation of entire chest wall Resp: COMMON NORMALS: normal respiratory effort and clear to auscultation bilaterally AUSCULTATION: clear to auscultation bilaterally Cardio: COMMON NORMALS: regular rate and regular rhythm RATE: regular rate RHYTHM: regular rhythm GI: COMMON NORMALS: Soft to palpation and non-tender PALPATION: Yes Soft to palpation : COMMON NORMALS: Yes no CVA tenderness BLADDER/KIDNEY EXAM: Yes no CVA tenderness Back/Pelvis: COMMON NORMALS: no CVA tenderness THORACIC SPINE/UPPER BACK: Yes paraspinal muscle tenderness LUMBAR SPINE/LOWER BACK: Yes paraspinal muscle tenderness Extremity: NARRATIVE EXTREMITY EXAM: Decreased range of motion which is probably chronic, no redness or swelling of the joints. Neuro: SENSORIUM/ORIENTATION: Yes alert Skin: COMMON NORMALS: no rashes or lesions noted GENERAL SKIN EXAM: no rashes or lesions noted Course ED course: 2302, notified by radiology that CT scan noted a epidural abscess along with discitis and compression fracture at T3-T4. Reached out to [facility] in [place] where patient had her knee washout, for MRSA infection, done approximately 6 to 8 weeks ago but all beds were full and unable to transport. Will attempt transfer to [facility] in [facility]. Notified patient who is agreeable to this plan. Patient is resting well at this time. Vital Signs: Vital signs: Vital Signs Temperature 99.3 F 08/10/22 20:34 Pulse Rate 80 08/10/22 21:30 Respiratory Rate 18 08/10/22 21:32 Blood Pressure 117/68 08/10/22 21:30 Pulse Oximetry 93 08/10/22 21:32 Oxygen Delivery Me thod 08/10/22 21:30 MDM - Back Pain/Injury Medical Decision Making 36-year-old female comes in today for complaints of back pain with muscle spasms. Patient reports that she has not fallen. Patient reports symptoms started yesterday. Patient has had increased discomfort and difficulty ambulating without assistance. Patient does have a history of dwarfism and chronic musculoskeletal pain. Differential diagnosis includes intervertebral disc disease, facet arthropathy, discitis, muscle strain. CBC showed a white count of 23,000, hemoglobin is 8.4, CMP showed sodium 129 and potassium 3.1, and creatinine 0.4. Patient CRP was elevated to 67, alkaline phos was 204, and a sed rate of 50. CT of the lumbar spine was unremarkable except for degenerative changes and changes related to mucopolysaccharidosis. CT of the thoracic spine noted a compression fracture to T3 with discitis at T4 with epidural abscess. Discussed with Dr. Estrada surgeon at [facility] who would be happy to consult with patient on admission to their facility through [facility] surgical. Dr. Lew, hospitalist, agreed to the admission to their facility for further care. Reviewed with patient who agreed to plan. Initiated vancomycin and Zosyn for infection. Labs 08/10/22 21:00 08/10/22 21:00 Radiology Impressions Lumbar Spine CT 08/10/22 20:48 IMPRESSION: 1. 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 2. Continued osteopenia/osteoporosis. Thoracic Spine CT 08/10/22 20:48 IMPRESSION: 1. Continued osteopenia/osteoporosis with deformity of multiple thoracic vertebrae. 2. 100% pathologic compression fracture in the anterior portion of T3 vertebral body of indeterminate age. This area is not visualized on any comparison imaging. New since 2014 based on the 2014 x-ray report. 3. Prominent soft tissue thickening anterior, right anterolateral and left anterolateral to the T3 fracture with some small bony fragments consistent with infectious process with phlegmon/osteomyelitis/T3-T4 discitis versus hemorrhage from recent fracture versus neoplastic process. 4. Poorly visualized probable severe central spinal stenosis at T3-T4 secondary to epidural abscess, hemorrhage or tumor which may be a circumferential epidural process. Axial series 5, images 24-28. 5. Mild bilateral pleural fluid collections. 6. Moderate mediastinal adenopathy which may be reactive versus neoplastic. 7. Loss of disc space height that T3-T4 with loss of bone in both vertebral bodies most consistent with osteomyelitis/infectious discitis. ADDENDUM: 08/10/22 6200 History: Infectious arthritis 5 weeks ago which was washed out. THIS REPORT CONTAINS FINDINGS THAT MAY BE CRITICAL TO PATIENT CARE. The findings were verbally communicated via telephone conference with KEN VALDES at 10:44 PM CDT on 08/10/2022. The findings were acknowledged and understood. Laboratory Results WBC 23.8 10^3/uL (4.0-10.0) H 08/10/22 21:00 RBC 3.37 10^6/uL (4.1-5.3) L 08/10/22 21:00 Hgb 8.4 g/dL (11.5-15.3) L 08/10/22 21:00 Hct 26.9 % (37.0-47.0) L 08/10/22 21:00 MCV 79.8 fl (81-99) L 08/10/22 21:00 MCH 24.9 pg (28.0-34.0) L 08/10/22 21:00 MCHC 31.2 g/dL (30.0-36.0) 08/10/22 21:00 RDW 15.9 % (12.1-15.1) H 08/10/22 21:00 Plt Count 635 10^3/cmm (130-400) H 08/10/22 21:00 MPV 9.5 fL (7.4-10.4) 08/10/22 21:00 Neut % (Auto) 80.3 % 08/10/22 21:00 Lymph % (Auto) 12.1 % 08/10/22 21:00 [place] % (Auto) 6.1 % 08/10/22 21:00 Eos % (Auto) 0.1 % 08/10/22 21:00 Baso % (Auto) 0.2 % 08/10/22 21:00 Neut # (Auto) 19.13 10^3/uL (1.8-7.7) H 08/10/22 21:00 Lymph # (Auto) 2.9 10^3/uL (0.8-4.8) 08/10/22 21:00 [place] # (Auto) 1.5 10^3/uL (0.2-0.9) H 08/10/22 21:00 Eos # (Auto) 0.0 10^3/uL (0.0-0.8) 08/10/22 21:00 Baso # (Auto) 0.1 10^3/uL (0.0-0.1) 08/10/22 21:00 Nucleated RBC % (auto) 0 % 08/10/22 21:00 Nucleated RBCs # 0.0 /100WBC 08/10/22 21:00 ESR 50 mm/hr (0-15) H 08/10/22 21:00 Sodium 129 mmol/L (136-145) L 08/10/22 21:00 Potassium 3.1 mmol/L (3.5-5.1) L 08/10/22 21:00 Chloride 94 mmol/L (98-107) L 08/10/22 21:00 Carbon Dioxide 23 mmol/L (22-29) 08/10/22 21:00 Anion Gap 15.1 (5-19) 08/10/22 21:00 BUN 8 mg/dL (6-20) 08/10/22 21:00 Creatinine 0.4 mg/dL (0.5-0.9) L 08/10/22 21:00 GFR Calculation 181.6 mL/min (90-130) H 08/10/22 21:00 Glucose 112 mg/dL (65-115) 08/10/22 21:00 Calculated Osmolality 267 mOsm/kg (285-295) L 08/10/22 21:00 Lactic Acid 1.4 mmol/L (0.5-2.2) 08/10/22 21:00 Calcium 8.6 mg/dL (8.5-10.5) 08/10/22 21:00 Total Bilirubin 0.3 mg/dL (0.15-1.2) 08/10/22 21:00 AST 9 U/L (0-32) 08/10/22 21:00 ALT 6 U/L (0-33) 08/10/22 21:00 Alkaline Phosphatase 204 U/L (35-105) H 08/10/22 21:00 C-Reactive Protein 267.3 mg/L (0.0-4.9) H 08/10/22 21:00 Total Protein 7.5 g/dL (6.6-8.7) 08/10/22 21:00 Albumin 2.9 g/dL (3.5-5.2) L 08/10/22 21:00 Globulin 4.6 g/dL (1.3-4.6) 08/10/22 21:00 HCG, Qual Negative (Negative) 08/10/22 21:00 Urine Color Yellow (Yellow) 08/10/22 22:58 Urine Appearance Clear (CLEAR) 08/10/22 22:58 Urine pH 6 (5-7) 08/10/22 22:58 Ur Specific [place] 1.010 (1.005-1.030) 08/10/22 22:58 Urine Protein Neg (Negative) 08/10/22 22:58 Urine Glucose (UA) Norm (Normal) 08/10/22 22:58 Urine Ketones Negative (Negative) 08/10/22 22:58 Urine Blood 2+ (Negative) H 08/10/22 22:58 Urine Nitrate Negative (Negative) 08/10/22 22:58 Urine Bilirubin Neg (Negative) 08/10/22 22:58 Urine Urobilinogen 4 mg/dL (Negative) H 08/10/22 22:58 Ur Leukocyte Esterase Negative (Negative) 08/10/22 22:58 Urine RBC 5-10 /hpf (0-2) H 08/10/22 22:58 Urine WBC 5-10 /hpf (0-5) H 08/10/22 22:58 Ur Squamous Epith Cells 0-4 /hpf (0-5) H 08/10/22 22:58 Amorphous Sediment Not Reportable 08/10/22 22:58 Urine Bacteria Trace /hpf (NONE) 08/10/22 22:58 Urine Mucus Trace /hpf 08/10/22 22:58 Discharge Plan Discharge Condition: Stable Prescriptions: No Action medroxyprogesterone [Depo-Provera] 150 mg/mL suspension 150 mg IM Q90D diphenhydramine HCl [Allergy (diphenhydramine)] 25 mg capsule 25 mg PO Q6H PRN (Reason: Allergic Reaction) lisinopril 2.5 mg tablet 2.5 mg PO DAILY PRN (Reason: Blood Pressure) Eliquis 5 mg tablet 2.5 mg PO BID furosemide [Lasix] 20 mg tablet 20 mg PO DAILY PRN (Reason: Edema) Botox 100 unit recon soln 100 unit SUBCUT .COMPLEX Rx Instructions: 100 units subcutaneously every 3 months; methylphenidate HCl [Concerta] 36 mg tablet extended release 24hr 36 mg PO DAILY 90 Days Qty: 90 0RF Rx Instructions: DO NOT FILL UNTIL 07/06/22 340B venlafaxine 150 mg capsule,extended release 24hr See Rx Instructions .ROUTE .COMPLEX Qty: 30 3RF Dose Instruction: Take 1 capsule by mouth once daily Rx Instructions: Take 1 capsule by mouth once daily famotidine 20 mg tablet See Rx Instructions .ROUTE .COMPLEX Qty: 60 2RF Dose Instruction: Take 1 tablet by mouth twice daily Rx Instructions: Take 1 tablet by mouth twice daily meloxicam 7.5 mg tablet See Rx Instructions .ROUTE .COMPLEX Qty: 60 2RF Hold Instructions: Resume on 01/03/22. Dose Instruction: Take 1 tablet by mouth twice daily Rx Instructions: Take 1 tablet by mouth twice daily erythromycin 250 mg capsule,delayed release(DR/EC) See Rx Instructions .ROUTE .COMPLEX Qty: 120 2RF Dose Instruction: Take 1 capsule by mouth 4 times daily Rx Instructions: Take 1 capsule by mouth 4 times daily tizanidine 4 mg capsule 8 mg PO TID PRN (Reason: muscle spasticity) Qty: 180 0RF lorazepam [Ativan] 1 mg tablet 1 mg PO TID PRN (Reason: Anxiety) Qty: 90 0RF oxycodone 10 mg tablet 10 mg PO .5x per day PRN (Reason: pain) 30 Days Qty: 150 0RF albuterol sulfate 90 mcg/actuation Hfa Aerosol Inhaler 2 puff INHALATION Q6H PRN (Reason: Shortness Of Breath) potassium chloride 40 mEq/15 mL liquid 40 meq PO DAILY PRN (Reason: prn) Referrals: Francine Singh FNP [Primary Care Provider] - Coding Level of Care Code ED [employer] for Thomas Martines
[2022-08-10 21:19] LABS: Basophils # 0.1 10^3/uL (0.0-0.1); Basophils % 0.2 %; Eosinophils % 0.1 %; Hematocrit 26.9 % (37.0-47.0); Hemoglobin 8.4 g/dL (11.5-15.3); Lymphocytes # 2.9 10^3/uL (0.8-4.8); Lymphocytes % 12.1 %; Mean Corpuscular HGB Conc 31.2 g/dL (30.0-36.0); Mean Corpuscular Hemoglobin 24.9 pg (28.0-34.0); Mean Corpuscular Volume 79.8 fl (81-99); Mean Platelet Volume 9.5 fL (7.4-10.4); Monocytes # 1.5 10^3/uL (0.2-0.9); Monocytes % 6.1 %; Neutrophils # 19.13 10^3/uL (1.8-7.7); Neutrophils % 80.3 %; Nucleated Red Blood Cells % 0 %; Platelet Count 635 10^3/cmm (130-400); Red Blood Count 3.37 10^6/uL (4.1-5.3); Red Cell Distribution Width 15.9 % (12.1-15.1); White Blood Count 23.8 10^3/uL (4.0-10.0)
[2022-08-10 21:27] LABS: HCG, Serum Qual Negative (Negative)
[2022-08-10] MEDS: sodium chloride 0.9% 250 ML IV (21:29)
[2022-08-10 21:30] VITALS: BP 117/68; PULSE 80; RESP 18; O2SAT 93
[2022-08-10] MEDS: ondansetron 2 mg/ML SDV 2 mL 4 MG IVP (21:30)
[2022-08-10 21:32] VITALS: RESP 18; O2SAT 93
[2022-08-10] MEDS: HYDROmorphone 1 mg/mL INJ 1 mL 0.5 MG IVP ×2 (21:32→23:39)
[2022-08-10 21:38] LABS: Alanine Aminotransferase 6 U/L (0-33); Albumin Level 2.9 g/dL (3.5-5.2); Alkaline Phosphatase 204 U/L (35-105); Anion Gap 15.1 (5-19); Aspartate Amino Transferase 9 U/L (0-32); Blood Urea Nitrogen 8 mg/dL (6-20); C Reactive Protein 267.3 mg/L (0.0-4.9); Calcium 8.6 mg/dL (8.5-10.5); Carbon Dioxide 23 mmol/L (22-29); Chloride 94 mmol/L (98-107); Globulin 4.6 g/dL (1.3-4.6); Glomerular Filtration Rate 181.6 mL/min (90-130); Glucose 112 mg/dL (65-115); Osmolality Calculated 267 mOsm/kg (285-295); Potassium 3.1 mmol/L (3.5-5.1); Sodium 129 mmol/L (136-145); Total Bilirubin 0.3 mg/dL (0.15-1.2); Total Protein 7.5 g/dL (6.6-8.7)
[2022-08-10 22:00] LABS: Erythrocyte Sedimentation Rate 50 mm/hr (0-15)
[2022-08-10 22:40] LABS: Lactic Sepsis W/Reflex 1.4 mmol/L (0.5-2.2)
[2022-08-10] MEDS: sodium chloride 0.9% 500 ML IV (22:45)
[2022-08-10] MEDS: piperacillin-tazobactam 3.375 GM in sodium chloride 0.9% (plus) 50 ML IV (23:21)
[2022-08-10 23:37] LABS: Add Urine Microscopic? YES; Bilirubin Urine Neg (Negative); Blood Urine 2+ (Negative); Glucose Urine UA Norm (Normal); Ketones Urine Negative (Negative); Leukocyte Esterase Urine Negative (Negative); Nitrate Urine Negative (Negative); Protein Urine Neg (Negative); Urine Appearance Clear (CLEAR); Urine Color Yellow (Yellow); Urobilinogen Urine 4 mg/dL (Negative); pH Urine 6 (5-7)
[2022-08-10 23:38] LABS: Add Urine Culture? No; Bacteria Urine TRACE /hpf; Mucus Urine TRACE /hpf; Squamous Epithelial Cell Urine 0-4 /hpf (0-5)
[2022-08-10] MEDS: vancomycin 1,000 MG in sodium chloride 0.9% 250 ML 250 MG IV (23:43)
[2022-08-11] MEDS: ketorolac 30 mg/mL INJ 15 MG IVP (00:21)
[2022-08-11] MEDS: HYDROmorphone 1 mg/mL INJ 1 mL IVP ×2 (00:22→02:57)
[2022-08-11 01:00] VITALS: BP 120/65; PULSE 103; RESP 20; O2SAT 96
[2022-08-11 02:30] VITALS: BP 123/79; PULSE 93; O2SAT 100
[2022-08-11 02:57] VITALS: RESP 14; O2SAT 100
== END 2022-08-11 03:04 | disposition short-term general hospital (02) ==
PROVIDERS: Emergency Provider Nurse Practitioner Family; PCP Nurse Practitioner Family
DX: M54.9 Dorsalgia, unspecified (principal); R20.0 Anesthesia of skin; Z79.01 Long term (current) use of anticoagulants; M48.54XA Collapsed vertebra, not elsewhere classified, thoracic region, initial encounter for fracture; I10 Essential (primary) hypertension; Z77.22 Contact with and (suspected) exposure to environmental tobacco smoke (acute) (chronic)
CPT/HCPCS: 36415; 72128; 72131; 80053; 81001; 83605; 84703; 85025; 85651; 86140; 87040; 87077; 87186; 87205; 96365; 96375; 96376; 99285; J1170; J1885; J2405; J2543; J3370; J7040; J7050

== ENCOUNTER 2022-08-29 08:00 | Oncology outpatient (recurring) (ONCR) | payer MEDICARE, MEDICAID, SELFPAY | END 2022-09-02 23:59 | disposition home or self-care (01) | PROVIDERS: PCP Nurse Practitioner Family; Visit Provider Nurse Practitioner | DX: Z53.9 Procedure and treatment not carried out, unspecified reason (principal) ==

== ENCOUNTER 2022-09-04 08:29 | Outpatient (CLI) | payer MEDICARE, MEDICAID, SELFPAY ==
[2022-09-04 09:25] LABS: Vancomycin Trough 10.2 ug/mL (10-15)
== END 2022-09-04 08:30 | disposition home or self-care (01) ==
PROVIDERS: PCP Nurse Practitioner Family; Visit Provider Family Medicine
DX: B95.62 Methicillin resistant Staphylococcus aureus infection as the cause of diseases classified elsewhere (principal)
CPT/HCPCS: 80202

== ENCOUNTER 2022-09-05 08:07 | Oncology outpatient (recurring) (ONCR) | payer MEDICARE, MEDICAID, SELFPAY ==
[2022-09-05] VITALS (10 sets, daily range): BP systolic 121–153; BP diastolic 88–102; PULSE 73–88; RESP 16–18; TEMP 35.9–36.9; O2SAT 96–98; BMI 23.3
[2022-09-05] MEDS: sodium chloride 0.9% 500 ML 75 ML IV (09:09)
[2022-09-05] MEDS: famotidine 20 mg Tablet PO (09:13)
[2022-09-05] MEDS: LORazepam 0.5 mg Tablet PO (09:13)
[2022-09-05] MEDS: diphenhydrAMINE 25 mg Capsule 50 MG PO (09:13)
[2022-09-05] MEDS: ondansetron 2 mg/ML SDV 2 mL 8 MG IVP (09:15)
[2022-09-05] MEDS: oxyCODONE 5 mg IR Tab/Cap 10 MG PO (10:02)
== END 2022-09-05 23:59 | disposition home or self-care (01) ==
LOC: ONCMED 08:07
PROVIDERS: PCP Nurse Practitioner Family; Visit Provider Nurse Practitioner
DX: E00-E89 Endocrine, nutritional and metabolic diseases (principal); D50.9 Iron deficiency anemia, unspecified; Z79.899 Other long term (current) drug therapy
CPT/HCPCS: 96361; 96365; 96366; 96375; J1322; J2405; J7040; J7050

== ENCOUNTER 2022-09-10 07:20 | Outpatient (CLI) | payer MEDICARE, MEDICAID, SELFPAY ==
[2022-09-10 07:53] LABS: Vancomycin Trough 15.3 ug/mL (10-15)
== END 2022-09-10 07:21 | disposition home or self-care (01) ==
PROVIDERS: PCP Nurse Practitioner Family; Visit Provider Family Medicine
DX: B95.62 Methicillin resistant Staphylococcus aureus infection as the cause of diseases classified elsewhere (principal)
CPT/HCPCS: 80202

== ENCOUNTER 2022-09-13 08:00 | Oncology outpatient (recurring) (ONCR) | payer MEDICARE, MEDICAID, SELFPAY ==
[2022-09-13] VITALS (9 sets, daily range): BP systolic 89–139; BP diastolic 62–101; PULSE 83–96; RESP 14–18; TEMP 36.1–36.7; O2SAT 94–98
[2022-09-13] MEDS: famotidine 20 mg Tablet PO (08:34)
[2022-09-13] MEDS: oxyCODONE 5 mg IR Tab/Cap 10 MG PO (08:34)
[2022-09-13] MEDS: ondansetron 2 mg/ML SDV 2 mL 8 MG IVP (08:36)
[2022-09-13] MEDS: diphenhydrAMINE 25 mg Capsule 50 MG PO (08:36)
[2022-09-13] MEDS: sodium chloride 0.9% 500 ML 75 ML IV (08:37)
== END 2022-09-13 23:59 | disposition home or self-care (01) ==
PROVIDERS: PCP Nurse Practitioner Family; Visit Provider Nurse Practitioner
DX: E00-E89 Endocrine, nutritional and metabolic diseases (principal); D50.9 Iron deficiency anemia, unspecified; Z79.899 Other long term (current) drug therapy
CPT/HCPCS: 96365; 96366; 96375; J1322; J1642; J2405; J7040; J7050

== ENCOUNTER 2022-09-14 06:34 | Outpatient (CLI) | payer MEDICARE, MEDICAID, SELFPAY ==
[2022-09-14 07:40] LABS: Vancomycin Trough 10.2 ug/mL (10-15)
== END 2022-09-14 06:35 | disposition home or self-care (01) ==
PROVIDERS: PCP Nurse Practitioner Family; Visit Provider Family Medicine
DX: B95.62 Methicillin resistant Staphylococcus aureus infection as the cause of diseases classified elsewhere (principal)
CPT/HCPCS: 80202

== ENCOUNTER 2022-09-17 07:47 | Outpatient (CLI) | payer MEDICARE, MEDICAID, SELFPAY ==
[2022-09-17 08:44] LABS: Vancomycin Trough 13.6 ug/mL (10-15)
== END 2022-09-17 07:48 | disposition home or self-care (01) ==
PROVIDERS: PCP Nurse Practitioner Family; Visit Provider Family Medicine
DX: E76.219 Morquio mucopolysaccharidoses, unspecified (principal)
CPT/HCPCS: 80202

== ENCOUNTER 2022-09-20 07:32 | Oncology outpatient (recurring) (ONCR) | payer MEDICARE, MEDICAID, SELFPAY ==
[2022-09-20] VITALS (8 sets, daily range): BP systolic 96–115; BP diastolic 65–80; PULSE 92–103; RESP 16; TEMP 36.2–36.7; O2SAT 94–97
[2022-09-20] MEDS: oxyCODONE 5 mg IR Tab/Cap 10 MG PO (09:05)
[2022-09-20] MEDS: acetaminophen 325 mg Tablet 650 MG PO (09:05)
[2022-09-20] MEDS: famotidine 20 mg Tablet PO (09:07)
[2022-09-20] MEDS: sodium chloride 0.9% 500 ML 75 ML IV (09:08)
[2022-09-20] MEDS: diphenhydrAMINE 25 mg Capsule 50 MG PO (09:44)
[2022-09-20] MEDS: LORazepam 0.5 mg Tablet PO (10:16)
== END 2022-09-20 23:59 | disposition home or self-care (01) ==
PROVIDERS: PCP Nurse Practitioner Family; Visit Provider Nurse Practitioner
DX: E00-E89 Endocrine, nutritional and metabolic diseases (principal); D50.9 Iron deficiency anemia, unspecified; Z79.899 Other long term (current) drug therapy
CPT/HCPCS: 96365; 96366; J1322; J7040; J7050

== ENCOUNTER 2022-09-24 08:20 | Outpatient (CLI) | payer MEDICARE, MEDICAID, SELFPAY ==
[2022-09-24 09:02] LABS: Vancomycin Trough 15.8 ug/mL (10-15)
== END 2022-09-24 08:21 | disposition home or self-care (01) ==
PROVIDERS: PCP Nurse Practitioner Family; Visit Provider Family Medicine
DX: B95.62 Methicillin resistant Staphylococcus aureus infection as the cause of diseases classified elsewhere (principal)
CPT/HCPCS: 80202

== ENCOUNTER 2022-09-26 08:02 | Oncology outpatient (recurring) (ONCR) | payer MEDICARE, MEDICAID, SELFPAY ==
[2022-09-26] VITALS (9 sets, daily range): BP systolic 88–136; BP diastolic 49–70; PULSE 67–109; RESP 16–18; TEMP 25–36.3; O2SAT 96–99
[2022-09-26 08:43] LABS: Basophils # 0.1 10^3/uL (0.0-0.1); Eosinophils # 0.4 10^3/uL (0.0-0.8); Eosinophils % 3.9 %; Hematocrit 39.2 % (37.0-47.0); Hemoglobin 12.3 g/dL (11.5-15.3); Lymphocytes # 3.3 10^3/uL (0.8-4.8); Lymphocytes % 33.1 %; Mean Corpuscular HGB Conc 31.4 g/dL (30.0-36.0); Mean Corpuscular Hemoglobin 28.7 pg (28.0-34.0); Mean Corpuscular Volume 91.6 fl (81-99); Mean Platelet Volume 9.7 fL (7.4-10.4); Monocytes % 10.3 %; Neutrophils # 5.05 10^3/uL (1.8-7.7); Neutrophils % 50.6 %; Nucleated Red Blood Cells % 0 %; Platelet Count 497 10^3/cmm (130-400); Red Blood Count 4.28 10^6/uL (4.1-5.3); Red Cell Distribution Width 20.1 % (12.1-15.1)
[2022-09-26 09:41] LABS: Alanine Aminotransferase 33 U/L (0-33); Albumin Level 4.1 g/dL (3.5-5.2); Alkaline Phosphatase 200 U/L (35-105); Anion Gap 16.3 (5-19); Aspartate Amino Transferase 31 U/L (0-32); Blood Urea Nitrogen 20 mg/dL (6-20); Carbon Dioxide 21 mmol/L (22-29); Chloride 102 mmol/L (98-107); Globulin 3.3 g/dL (1.3-4.6); Glomerular Filtration Rate 253.2 mL/min (90-130); Glucose 94 mg/dL (65-115); Osmolality Calculated 282 mOsm/kg (285-295); Potassium 4.3 mmol/L (3.5-5.1); Sodium 135 mmol/L (136-145); Total Bilirubin 0.2 mg/dL (0.15-1.2); Total Protein 7.4 g/dL (6.6-8.7)
[2022-09-26] MEDS: acetaminophen 325 mg Tablet 650 MG PO (10:22)
[2022-09-26] MEDS: famotidine 20 mg Tablet PO (10:23)
[2022-09-26] MEDS: diphenhydrAMINE 25 mg Capsule 50 MG PO (10:23)
[2022-09-26] MEDS: LORazepam 0.5 mg Tablet PO (10:24)
[2022-09-26] MEDS: sodium chloride 0.9% 500 ML 75 ML IV (10:24)
[2022-09-26] MEDS: ondansetron 2 mg/ML SDV 2 mL 8 MG IVP (10:25)
[2022-09-26] MEDS: oxyCODONE 5 mg IR Tab/Cap 10 MG PO (11:00)
[2022-09-27 11:38] LABS: C Reactive Protein 11.8 mg/L (0.0-4.9)
== END 2022-09-26 23:59 | disposition home or self-care (01) ==
PROVIDERS: Internal Medicine Medical Oncology; PCP Nurse Practitioner Family; Visit Provider Nurse Practitioner
DX: E00-E89 Endocrine, nutritional and metabolic diseases (principal); D50.9 Iron deficiency anemia, unspecified; Z79.899 Other long term (current) drug therapy; M00.062 Staphylococcal arthritis, left knee; Z79.2 Long term (current) use of antibiotics
CPT/HCPCS: 80053; 85025; 86140; 96365; 96366; 96375; 99214; J1322; J1642; J2405; J7040; J7050

== ENCOUNTER 2022-10-02 18:13 | Inpatient (IN) | payer MEDICARE, MEDICAID, SELFPAY ==
[2022-10-02] VITALS (12 sets, daily range): BP systolic 101–143; BP diastolic 55–90; PULSE 67–89; RESP 16–20; TEMP 37; O2SAT 94–100; BMI 24.4
--- NOTE | 2022-10-02 18:15 | ED_ITS ---
HPI - General Adult General: Chief complaint: Recheck/Abnormal Lab/Rx Stated complaint: HIGH POTASSIUM Time Seen by Provider: 10/02/22 18:14 History of Present Illness: Ms. Campbell is a 36-year-old lady with complex past medical history presenting to the emergency department for abnormal labs. She does note decreased appetite and perhaps more fatigue over the past few days. [facility] after a back surgery approximately 6 weeks ago. She had a pot assium that was elevated. Typically her potassium is low. She denies any infectious symptoms or significant changes in health otherwise. No other specific changes in health, exacerbating, or alleviating factors identified. Onset (ago): day(s) Review of Systems General: Reports: 10 or more systems reviewed and unremarkable except in HPI and below PFSH ED PFSH: Medical History Anxiety and depression Asthma 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 Chronic migraine Chronic musculoskeletal pain Gastroparesis History of hip fracture History of pulmonary embolism Hypertension Mucopolysaccharidosis 4 Mucopolysaccharidosis 4 Transaminitis History of transaminitis, presumed secondary to acetaminophen Surgical History History of back surgery History of left knee surgery History of neck surgery History of right hip replacement History of spinal fusion In 2000 and in 2002 History of surgery on lower extremity (1998) Right leg surgery History of total left hip arthroplasty (12/2015) History of total right hip arthroplasty (03/2016) Port-A-Cath in place Family History Father Clotting disorder Hyperlipidemia Mother Hyperlipidemia Other Cancer Diabetes Hypertension Stroke Denies family history of CAD (coronary artery disease) Dementia Psychiatric illness Chronic kidney disease (CKD) Suicide Anesthesia complication Bleeding disorder Lung disease Social History Smoking and tobacco status: never smoked Second hand smoke exposure: Yes Alcohol intake: current Alcohol intake frequency: holidays/special occasions only Substance/Drug Use: never Physical Exam Const: COMMON NORMALS: alert GENERAL APPEARANCE: cooperative and well developed HENMT: COMMON NORMALS: normocephalic and atraumatic HEAD & SCALP: normocep halic and atraumatic Eye: COMMON NORMALS: conjunctivae normal CONJUNCTIVA: Yes conjunctivae normal SCLERA: sclerae normal Neck/C-Spine: COMMON NORMALS: supple GENERAL: Yes trachea midline Resp: COMMON NORMALS: normal respiratory effort EFFORT & INSPECTION: Yes able to speak in complete sentences Cardio: COMMON NORMALS: regular rate and regular rhythm RATE: regular rate RHYTHM: regular rhythm GI: COMMON NORMALS: Soft to palpation PALPATION: Yes Soft to palpation and No Tenderness to palpation present (GI) Extremity: GENERAL: Yes normal exam except as noted and No edema Neuro: COMMON NORMALS: moves all extremities SENSORIUM/ORIENTATION: Yes alert and No Orientation impaired Psych: COMMON NORMALS: mental status grossly normal and Normal thought process present THOUGHT PROCESS: Normal thought process present Course Vital Signs: Vital signs: Vital Signs Temperature 98.6 F 10/04/22 03:24 Pulse Rate 80 10/04/22 11:26 Respiratory Rate 13 10/04/22 11:26 Blood Pressure 96/72 10/04/22 11:26 Pulse Oximetry 97 10/04/22 11:26 Oxygen Delivery Me thod Room Air 10/03/22 19:14 MDM - General Adult Medical Decision Making 36-year lady with complex history of genetic disorder presenting due to abnormal lab. Patient has felt mild fatigue however denies other specific changes. EKG demonstrates sinus rhythm with normal axis and intervals, no STEMI. Labs notable for no leukocytosis, mild normocytic anemia, normal platelet count. Metabolic panel confirms hyperkalemia and also reveals KARRIE. Normal urinalysis. Renal ultrasound demonstrates mild bilateral hydronephrosis without obvious obstruction. Clinical history is not consistent with kidney stone or obstructive nephropathy. Patient treated with analgesia, IV fluid, treatment for hyperkalemia. The results of ED evaluation were discussed with the patient including plan for admission due to requirement for level of care not available if discharged to prevent significant worsening/deterioration. Patient agreeable with plan. Discussed with hospitalist service who was agreeable to admit patient. Medical Records I reviewed the patient's medical records. Lab Data I reviewed the patient's lab results. 10/04/22 03:17 10/04/22 03:17 Radiology Impressions Renal Ultrasound 10/02/22 20:23 IMPRESSION: Mild bilateral hydronephrosis with no obvious obstructing calculi in the renal/UPJ or UVJ regions. No significant parenchymal thinning. Findings may represent reflux versus obstructive causes such as ureteral calculi. Imaging by CT may be obtained if clinically indicated. No hydronephrosis was noted on prior CT April 2019. Head CT 10/03/22 10:01 IMPRESSION: 1. No acute intracranial hemorrhage. 2. Mild limitation by motion artifact and hardware artifact. 3. No midline shift and no hydrocephalus. Laboratory Results WBC 10.0 10^3/uL (4.0-10.0) 10/02/22 19:20 RBC 3.57 10^6/uL (4.1-5.3) L 10/02/22 19:20 Hgb 10.2 g/dL (11.5-15.3) L 10/02/22 19:20 Hct 32.7 % (37.0-47.0) L 10/02/22 19:20 MCV 91.6 fl (81-99) 10/02/22 19:20 MCH 28.6 pg (28.0-34.0) 10/02/22 19:20 MCHC 31.2 g/dL (30.0-36.0) 10/02/22 19:20 RDW 20.2 % (12.1-15.1) H 10/02/22 19:20 Plt Count 363 10^3/cmm (130-400) 10/02/22 19:20 MPV 10.4 fL (7.4-10.4) 10/02/22 19:20 Neut % (Auto) 56.0 % 10/02/22 19:20 Lymph % (Auto) 31.3 % 10/02/22 19:20 [place] % (Auto) 10.2 % 10/02/22 19:20 Eos % (Auto) 1.3 % 10/02/22 19:20 Baso % (Auto) 0.7 % 10/02/22 19:20 Neut # (Auto) 5.59 10^3/uL (1.8-7.7) 10/02/22 19:20 Lymph # (Auto) 3.1 10^3/uL (0.8-4.8) 10/02/22 19:20 [place] # (Auto) 1.0 10^3/uL (0.2-0.9) H 10/02/22 19:20 Eos # (Auto) 0.1 10^3/uL (0.0-0.8) 10/02/22 19:20 Baso # (Auto) 0.1 10^3/uL (0.0-0.1) 10/02/22 19:20 Nucleated RBC % (auto) 0 % 10/02/22 19:20 Nucleated RBCs # 0.0 /100WBC 10/02/22 19:20 Sodium 125 mmol/L (136-145) L 10/02/22 19:20 Potassium 6.8 mmol/L (3.5-5.1) H* 10/02/22 19:20 Chloride 96 mmol/L (98-107) L 10/02/22 19:20 Carbon Dioxide 19 mmol/L (22-29) L 10/02/22 19:20 Anion Gap 16.8 (5-19) 10/02/22 19:20 BUN 43 mg/dL (6-20) H 10/02/22 19:20 Creatinine 1.4 mg/dL (0.5-0.9) H 10/02/22 19:20 GFR Calculation 42.8 mL/min (90-130) L 10/02/22 19:20 Glucose 81 mg/dL (65-115) 10/02/22 19:20 Calculated Osmolality 270 mOsm/kg (285-295) L 10/02/22 19:20 Calcium 9.3 mg/dL (8.5-10.5) 10/02/22 19:20 Urine Color Yellow (Yellow) 10/02/22 20:38 Urine Appearance Clear (CLEAR) 10/02/22 20:38 Urine pH 6 (5-7) 10/02/22 20:38 Ur Specific [place] 1.010 (1.005-1.030) 10/02/22 20:38 Urine Protein Neg (Negative) 10/02/22 20:38 Urine Glucose (UA) Norm (Normal) 10/02/22 20:38 Urine Ketones Negative (Negative) 10/02/22 20:38 Urine Blood Neg (Negative) 10/02/22 20:38 Urine Nitrate Negative (Negative) 10/02/22 20:38 Urine Bilirubin Neg (Negative) 10/02/22 20:38 Urine Urobilinogen Neg mg/dL (Negative) 10/02/22 20:38 Ur Leukocyte Esterase Negative (Negative) 10/02/22 20:38 Discharge Plan Discharge Patient Disposition: Admitted As Inpatient Admit Provider: Vicki Sharma Clinical Impression: Acute kidney injury, Hyperkalemia Condition: Stable Coding Level of Care Code ED [employer] for Thomas Martines
--- NOTE | 2022-10-02 19:06 | PC.NURSE ---
REPORT GIVEN TO SHANTANU Ordonez RN ASSUMED CARE.
--- NOTE | 2022-10-02 19:20 | PC.NURSE ---
Received report and taken over care from Damon RN @ [id number]
[2022-10-02 20:17] LABS: Anion Gap 16.8 (5-19); Blood Urea Nitrogen 43 mg/dL (6-20); Calcium 9.3 mg/dL (8.5-10.5); Carbon Dioxide 19 mmol/L (22-29); Chloride 96 mmol/L (98-107); Glomerular Filtration Rate 42.8 mL/min (90-130); Glucose 81 mg/dL (65-115); Osmolality Calculated 270 mOsm/kg (285-295); Sodium 125 mmol/L (136-145)
[2022-10-02 20:20] LABS: Potassium 6.8 mmol/L (3.5-5.1)
--- NOTE | 2022-10-02 20:23 | USR_ITS ---
PROCEDURE INFORMATION: Exam: US Retroperitoneal; Complete; Kidneys and Bladder Exam date and time: 10/02/2022 9:11 PM Age: 36 years old Clinical indication: Patient HX: Elevated creat = 1.4, elevated bun = 43. Normal wbc = 10.0, low rbc, low hgb, low hct. Recent spontaneous spinal fracture, now recovering in half-way. Patient is of very small stature. ; Additional info: Daniel TECHNIQUE: Imaging protocol: Real-time ultrasound of the retroperitoneum with image documentation. Complete exam focused on the kidneys and bladder. COMPARISON: US abdomen limited [id number] 04/09/2022 11:07 PM FINDINGS: Right kidney: Normal in size and overall echotexture, measuring 8 cm in length, somewhat decreased but is probably within normal limits given small stature. No stones. There is mild hydronephrosis.. No perinephric collection . Left kidney: Normal in size and overall echotexture, measuring 8 cm in length. No stones. Mild hydronephrosis similar to the right side. No perinephric collection. Urinary bladder: Views of the bladder were obtained with [id number] luminal distention with bladder volume of 135 mL. No obvious wall thickening or bladder calculi. Normal bilateral jets were seen. There is PVR of 35 mL. US/US renal BI* [id number] IMPRESSION: Mild bilateral hydronephrosis with no obvious obstructing calculi in the renal/UPJ or UVJ regions. No significant parenchymal thinning. Findings may represent reflux versus obstructive causes such as ureteral calculi. Imaging by CT may be obtained if clinically indicated. No hydronephrosis was noted on prior CT April 2019.
[2022-10-02] MEDS: sodium chloride 0.9% 1,000 ML 999 ML IV (20:28)
--- NOTE | 2022-10-02 20:29 | ECG_ITS ---
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 Measurements Intervals [place] Rate: 71 P: 28 NV: 166 QRS: 19 QRSD: 93 T: 17 QT: 351 QTc: 384 Interpretive Statements SINUS RHYTHM Compared to ECG 12/13/2021 23:03:59 Sinus tachycardia no longer present Short NV interval no longer present T-wave abnormality no longer present Electronically Signed On 10-02-2022 20:36:29 CDT by Santos Piedra M.D. [id number]
[2022-10-02] MEDS: oxyCODONE 5 mg IR Tab/Cap 10 MG PO (20:33)
[2022-10-02 20:43] LABS: Add Urine Microscopic? NO; Charge for UA Resulting for Rev
[2022-10-02 20:46] LABS: Basophils # 0.1 10^3/uL (0.0-0.1); Basophils % 0.7 %; Eosinophils # 0.1 10^3/uL (0.0-0.8); Eosinophils % 1.3 %; Hematocrit 32.7 % (37.0-47.0); Hemoglobin 10.2 g/dL (11.5-15.3); Lymphocytes # 3.1 10^3/uL (0.8-4.8); Lymphocytes % 31.3 %; Mean Corpuscular HGB Conc 31.2 g/dL (30.0-36.0); Mean Corpuscular Hemoglobin 28.6 pg (28.0-34.0); Mean Corpuscular Volume 91.6 fl (81-99); Mean Platelet Volume 10.4 fL (7.4-10.4); Monocytes % 10.2 %; Neutrophils # 5.59 10^3/uL (1.8-7.7); Nucleated Red Blood Cells % 0 %; Platelet Count 363 10^3/cmm (130-400); Red Blood Count 3.57 10^6/uL (4.1-5.3); Red Cell Distribution Width 20.2 % (12.1-15.1)
[2022-10-02 20:49] LABS: Bilirubin Urine Neg (Negative); Blood Urine Neg (Negative); Glucose Urine UA Norm (Normal); Ketones Urine Negative (Negative); Leukocyte Esterase Urine Negative (Negative); Nitrate Urine Negative (Negative); Protein Urine Neg (Negative); Urine Appearance Clear (CLEAR); Urine Color Yellow (Yellow); Urobilinogen Urine Neg (Negative); pH Urine 6 (5-7)
[2022-10-02] MEDS: calcium gluconate 0.1 gm/mL 10% SDV 10mL 1 GM IVP (22:30)
[2022-10-02] MEDS: insulin regular-human 100 units/1 mL 10 UNIT IVP (22:45)
--- NOTE | 2022-10-02 23:31 | PC.NURSE ---
Report called to LONDON Quezada in [facility].
[2022-10-03] VITALS (43 sets, daily range): BP systolic 95–141; BP diastolic 69–88; PULSE 83–125; RESP 13–31; TEMP 36.6–37.1; O2SAT 85–100
[2022-10-03 00:16] LABS: Potassium 4.7 mmol/L (3.5-5.1)
--- NOTE | 2022-10-03 01:02 | P.HP_ITS ---
Providers/Chief Complaint Admitting Physician: Vicki Sharma MD Primary Care Provider: Francine Singh Chief Complaint: HIGH POTASSIUM History of Present Illness Elisa Campbell is a 36 year old female with past medical history of mucopolysaccharidosis type IV, ADD, who is currently at a skilled nursing for rehab after recently undergoing back surgery. Labs were checked today at the skilled nursing and she was noted to have hyponatremia and hyperkalemia for which she was referred into the emergency room. Patient is overall denying any symptoms today. She feels relatively asymptomatic No fever chills abdominal pain nausea vomiting diarrhea. Review of Systems General: Reports: 10 or more systems reviewed and unremarkable except in HPI and below Const: Denies: fever(s), chills or body aches Eyes: Denies: change in vision, blurry vision or photophobia ENMT: Reports: hoarseness; Denies: throat pain, enlarged tonsils, odynophagia or nasal congestion Card: Denies: chest pain, palpitations, irregular heart rhythm, edema, swelling of feet/ankles, lightheadedness, pre-syncope, dyspnea on exertion or orthopnea Resp: Denies: dyspnea, productive cough, non-productive cough, wheezing, stridor, pain on inspiration, change in phlegm color, hemoptysis or chest congestion GI: Denies: abdominal pain, nausea, vomiting, hematemesis, coffee ground emesis, dysphagia, heartburn, diarrhea, constipation, GI cramping, change in stool character, hematochezia or melena : Denies: flank pain, difficulty voiding, dysuria, urinary frequency, urinary urgency, urinary hesitancy or hematuria Musc: Denies: neck pain, back pain, extremity pain, joint swelling, joint warmth or deformity Neuro: Denies: headache(s), numbness in extremities, weakness in extremities, sensory changes, difficulty walking, frequent falls, dizziness, vertigo, behav ioral changes, Slurred speech present or seizure-like activity Psych: Denies: anxiety, depression, suicidal ideation or homicidal ideation Endo: Denies: polyuria, polydipsia, tired all the time, cold intolerance or hot flashes Carlos/Lymph: Denies: easy bruising or easy bleeding Medications/Allergies Home Medications Medication Instructions Recorded Confirmed Last Taken Type apixaban 5 mg tablet (Eliquis) 2.5 mg PO BID 09/06/21 10/03/22 12/12/21 History albuterol sulfate 90 mcg/actuation 2 puff inhalation Q6H PRN 12/13/21 10/03/22 Unknown History aerosol inhaler Shortness Of Breath venlafaxine 150 mg See Rx Instructions .Route 02/22/22 08/02/22 Unknown Rx capsule,extended release 24 hr .COMPLEX #30 caps tizanidine 4 mg capsule 8 mg PO TID PRN muscle spasticity 05/08/22 10/03/22 1 Day Ago Rx #180 caps ~10/02/22 8 mg onabotulinumtoxinA 100 unit 100 unit SUBCUT .COMPLEX migraines 06/27/22 08/02/22 Unknown History solution for injection (Botox) oxycodone 10 mg tablet 10 mg PO .5x per day PRN pain 30 08/08/22 10/03/22 Rx days #150 tabs 0200 Saccharomyces boulardii 250 mg 250 mg PO BID 09/26/22 09/26/22 Unknown History capsule (Florastor) bisacodyl 10 mg rectal suppository 10 mg NM DAILY PRN Constipation 09/26/22 10/03/22 Unknown History (Dulcolax (bisacodyl)) clonidine HCl 0.1 mg tablet 0.1 mg PO BID 09/26/22 09/26/22 Unknown History diclofenac sodium 50 mg 50 mg PO BID 09/26/22 09/26/22 Unknown History tablet,delayed release famotidine 20 mg tablet See Rx Instructions .Route .COMPLEX 09/26/22 10/02/22 History 20 lisinopril 2.5 mg tablet 10 mg PO BID PRN Blood Pressure 09/26/22 10/03/22 10/02/22 History 10 lorazepam 1 mg tablet (Ativan) 1 mg PO BID PRN Anxiety 09/26/22 Unknown History magnesium hydroxide 400 mg/5 mL 15 ml PO BID PRN 09/26/22 09/26/22 Unknown History oral suspension (Milk of Magnesia) metoprolol tartrate 25 mg tablet 25 mg PO BID 09/26/22 09/26/22 Unknown History ondansetron HCl 4 mg tablet 4 mg PO Q4H 09/26/22 09/26/22 Unknown History potassium chloride 20 mEq 20 meq PO DAILY 09/26/22 09/26/22 Unknown History tablet,extended release sennosides 8.6 mg-docusate sodium 1 tab-cap PO DAILY 09/26/22 09/26/22 Unknown History 50 mg tablet (Senna with Docusate Sodium) onabotulinumtoxinA 100 unit 155 unit IM Q90D #2 ea 10/02/22 Unknown Rx solution for injection (Botox) Movantik 25 mg PO DAILY 10/03/22 10/03/22 10/02/22 History 0900 Vitamin D2 50,000 units PO DIRECTED 10/03/22 10/03/22 10/02/22 History 13596 acetaminophen 500 mg PO Q6H pain 10/03/22 10/03/22 Unknown History amlodipine 10 mg tablet mg 10/03/22 10/02/22 History 0900 cetirizine 10 mg PO DAILY 10/03/22 10/03/22 10/02/22 History 0900 cholecalciferol (vitamin D3) units PO DAILY 10/03/22 10/02/22 History 0900 dexamethasone 1 mg PO DAILY 10/03/22 10/03/22 10/02/22 History 0900 dextromethorphan-guaifenesin 30 tab PO 10/03/22 10/03/22 Unknown History mg-600 mg tablet extended [id number] hr (Mucinex DM) duloxetine 20 mg PO DAILY 10/03/22 10/03/22 10/02/22 History 0900 erythromycin 250 mg mg PO 10/03/22 10/03/22 Unknown History capsule,delayed release famotidine 20 mg tablet mg 10/03/22 10/02/22 History 0900 lisinopril 10 mg PO DAILY 10/03/22 10/03/22 10/02/22 History 0900 polyethylene glycol 100 units PO DAILY constipation 10/03/22 10/03/22 10/02/22 History 0900 Allergies Allergy/AdvReac Type Severity Reaction Status Date / Time azithromycin Allergy nausea and Verified 09/26/22 09:53 vomiting gabapentin Allergy slurred Verified 09/26/22 09:53 speech metoclopramide Allergy twitching Verified 09/26/22 09:53 prochlorperazine Allergy hallucinati Verified 09/26/22 09:53 ons tramadol Allergy seizure Verified 09/26/22 09:53 silk tape Allergy ALGY-Redness Uncoded 09/26/22 09:53 of Skin PFSH Acute PFSH: Medical History Anxiety and depression Asthma 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 Chronic migraine Chronic musculoskeletal pain Gastroparesis History of hip fracture History of pulmonary embolism Hypertension Mucopolysaccharidosis 4 Mucopolysaccharidosis 4 Transaminitis History of transaminitis, presumed secondary to acetaminophen Surgical History History of back surgery History of left knee surgery History of neck surgery History of right hip replacement History of spinal fusion In 2000 and in 2002 History of surgery on lower extremity (1998) Right leg surgery History of total left hip arthroplasty (12/2015) History of total right hip arthroplasty (03/2016) Port-A-Cath in place Family History Father Clotting disorder Hyperlipidemia Mother Hyperlipidemia Other Cancer Diabetes Hypertension Stroke Denies family history of CAD (coronary artery disease) Dementia Psychiatric illness Chronic kidney disease (CKD) Suicide Anesthesia complication Bleeding disorder Lung disease Social History Smoking and tobacco status: never smoked Second hand smoke exposure: Yes Alcohol intake: current Alcohol intake frequency: holidays/special occasions only Substance/Drug Use: never Vitals/I&O/Wt Last Vital Signs Temp 97.8 F 10/03/22 00:00 Pulse 117 H 10/03/22 00:07 Resp 28 H 10/03/22 00:07 BP 141/69 10/03/22 00:07 Pulse Ox 96 10/03/22 00:07 O2 Del Method Room Air 10/03/22 00:07 10/02/22 10/02/22 10/03/22 14:59 22:59 06:59 Intake Total 1000 / 1000 50 / 1050 Balance 1000 / 1000 50 / 1050 Weight last 48 hrs Weight 36.287 kg Weight 36.287 kg Physical Exam Narrative: General: No acute distress, AO x3 HEENT: PERRLA, pupils bilaterally equal and reactive, pallors not present Chest: Normal vesicular breath sounds, no added sounds, equal good air entry bilaterally CVS: S1-S2 regular, no murmurs, no tachycardia, no gallops, no rubs Abdomen: Soft, nontender, no organomegaly, bowel sounds present Neuro: No focal deficits, no facial deformity, AO x3, power 5/5 in all limbs Data 10/02/22 19:20 10/02/22 23:38 A&P Assessment and plan (1) Hyperkalemia: Elevated potassium at 6.8. Recommended to give insulin dextrose, albuterol, calcium gluconate in the ER. Recheck potassium after these interventions. Review of medication list shows patient is on supplemental potassium and lisinopril both of which will be discontinued at this time. Recheck CMP with these interventions (2) Hyponatremia: acute on chronic hyponatremia. At a baseline patient sodium appears to range between 1 27-1 33. Check urine lites. Start normal saline at 75 cc an hour (3) Acute kidney injury: baseline creatinine of 0.3-0.4. Currently creatinine is at 1.4 Review of records shows patient is on diclofenac twice daily after her recent back surgery. Discontinue NSAIDs and lisinopril and monitor for improvement in kidney function with hydration and holding these medications. (4) Mucopolysaccharidosis 4: Attestations Medical Necessity Statement*: > 2 midnight admission anticipated for above defined care Coding Level of Care Code Acute Code for [facility] Diagnoses Hyperkalemia E87.5 Hyponatremia E87.1 Acute kidney injury N17.9 Mucopolysaccharidosis 4 E76.219
[2022-10-03] MEDS: oxyCODONE 5 mg IR Tab/Cap 10 MG PO ×4 (01:42→20:56)
[2022-10-03] MEDS: metoprolol tartrate 25 mg Tablet PO ×3 (01:42→17:52)
[2022-10-03] MEDS: LORazepam 1 mg Tablet PO ×2 (01:42→18:00)
[2022-10-03] MEDS: sodium chloride 0.9% 1,000 ML 75 ML IV (01:45)
[2022-10-03 05:03] LABS: Potassium, Radom Urine 8 mmol/L; Urine Random Chloride 70 mmol/L; Urine Random Sodium 84 mmol/L
--- NOTE | 2022-10-03 06:25 | PC.NURSE ---
When I went to weigh the patient the bedscale says she weights 51.7lb and was zeroed out before patient arrived. The patient states that she should weight around 80 lbs.
--- NOTE | 2022-10-03 07:19 | PC.PHAR ---
Addendum entered by Mari Cardenas 10/03/22 11:31: antony from [facility] states the pt is only taking the medications on the pts mar and tar- wrote order for ativan 1mg bid on 09/26/22 pts mar has 0.5mg tid antony states the pt takes 0.5mg tid- Addendum entered by Mari Cardenas 10/03/22 09:54: pj nurse at [facility] trying to fax mar and tar Addendum entered by Mari Cardenas 10/03/22 08:09: alicia at front desk person from [facility] states will give nurse message to fax mar and tar Original Note: pt is from [facility] [phone] sanchez from [facility] will fax mar and tar
[2022-10-03] MEDS: tizanidine 4 mg Tablet 8 MG PO (08:21)
[2022-10-03] MEDS: pantoprazole DR 40 mg Tablet PO (08:21)
[2022-10-03] MEDS: sennosides-docusate Tablet 1 TAB PO (08:21)
[2022-10-03] MEDS: venlafaxine ER (24HR) 150 mg Capsule PO (08:22)
[2022-10-03] MEDS: cloNIDine 0.1 mg Tablet PO (08:22)
[2022-10-03] MEDS: apixaban 5 mg Tablet 2.5 MG PO ×2 (08:22→17:52)
--- NOTE | 2022-10-03 10:01 | CT_ITS ---
WS: [id number] CT HEAD NONCONTRAST HISTORY: HALLUCINATION TECHNIQUE: Contiguous axial imaging performed through the brain in 2.5 mm imaging. Bone and soft tiss ue windows. Sagittal and coronal reformats reviewed. All CT scans at [facility] use at least one of these dose optimization techniques: automated exposure control; mA and/or kV adjustment per pa tient size (includes targeted exams where dose is matched to clinical indication); or iterative recon struction. DLP: 971.90 mGy.cm COMPARISON: 04/24/2019 Motion artifact. There is also extensive artifact to the skull base and cerebellum from the patient's hardware and external wires. No areas of obvious hemorrhage or midline shift. Small areas of hemorrh age may be obscured by the artifact and motion. There may be mild atrophy. No hydrocephalus. Ventricles: Normal size with no hydrocephalus. No inferior displacement of cerebellar tonsils. Paranasal sinuses: As visualized are clear. Mastoid air cells: Well pneumatized. Calvarium and scalp: Posterior occipital cervical fusion. CT/CT head wo con* [id number] IMPRESSION: 1. No acute intracranial hemorrhage. 2. Mild limitation by motion artifact and hardware artifact. 3. No midline shift and no hydrocephalus.
[2022-10-03 11:21] LABS: Sodium 131 mmol/L (136-145)
--- NOTE | 2022-10-03 11:50 | P.MISC_ITS ---
Miscellaneous Note Note: Repeat sodium this morning is above 130, discontinue IV fluids Patient is complaining of floaters and tinnitus She is stating that she goes to [place] for her brain imaging nothing has been diagnosed so far I requested his repeat sodium and CT head which was unremarkable Patient is laying supine Complaining of floaters I do not appreciate any focal deficits Neck collar in place Able to follow commands Drowsy Able to answer my questions appropriately No active pain Patient just ate breakfast My plan for today Discontinue IV fluids Watch sodium Floaters and tinnitus CT head without contrast on stat basis Do believe her symptoms are related to hyponatremia at this point Hyperkalemia: Improved KARRIE: Gradually improved, likely medication related Full code
[2022-10-03] MEDS: tizanidine 4 mg Tablet PO ×2 (14:45→20:56)
[2022-10-03 15:55] LABS: Anion Gap 16.1 (5-19); Blood Urea Nitrogen 30 mg/dL (6-20); Calcium 9.7 mg/dL (8.5-10.5); Carbon Dioxide 19 mmol/L (22-29); Chloride 104 mmol/L (98-107); Glomerular Filtration Rate 81.6 mL/min (90-130); Glucose 83 mg/dL (65-115); Osmolality Calculated 281 mOsm/kg (285-295); Potassium 6.1 mmol/L (3.5-5.1); Sodium 133 mmol/L (136-145)
[2022-10-03] MEDS: pregabalin 50 mg Capsule PO (17:52)
[2022-10-03] MEDS: sodium polystyrene sulfonate 15 gm/60 mL Btl PO (21:28)
[2022-10-03] MEDS: calcium gluconate 0.1 gm/mL 10% SDV 10mL 1 GM IVP (21:28)
--- NOTE | 2022-10-03 23:39 | PC.NURSE ---
Patient saturated absorbent pad.
[2022-10-04] VITALS (8 sets, daily range): BP systolic 96–151; BP diastolic 55–109; PULSE 76–100; RESP 13–20; TEMP 37–37.1; O2SAT 92–99
[2022-10-04] MEDS: oxyCODONE 5 mg IR Tab/Cap 10 MG PO ×2 (03:10→07:51)
[2022-10-04 03:38] LABS: Basophils # 0.1 10^3/uL (0.0-0.1); Basophils % 0.7 %; Eosinophils # 0.1 10^3/uL (0.0-0.8); Eosinophils % 1.9 %; Hematocrit 31.2 % (37.0-47.0); Hemoglobin 9.6 g/dL (11.5-15.3); Lymphocytes # 2.9 10^3/uL (0.8-4.8); Lymphocytes % 38.8 %; Mean Corpuscular HGB Conc 30.8 g/dL (30.0-36.0); Mean Corpuscular Hemoglobin 28.8 pg (28.0-34.0); Mean Corpuscular Volume 93.7 fl (81-99); Mean Platelet Volume 10.4 fL (7.4-10.4); Monocytes # 0.7 10^3/uL (0.2-0.9); Monocytes % 8.9 %; Neutrophils # 3.61 10^3/uL (1.8-7.7); Neutrophils % 49.2 %; Nucleated Red Blood Cells % 0 %; Platelet Count 329 10^3/cmm (130-400); Red Blood Count 3.33 10^6/uL (4.1-5.3); Red Cell Distribution Width 20.4 % (12.1-15.1); White Blood Count 7.3 10^3/uL (4.0-10.0)
[2022-10-04 03:53] LABS: Alanine Aminotransferase 18 U/L (0-33); Albumin Level 3.6 g/dL (3.5-5.2); Alkaline Phosphatase 160 U/L (35-105); Anion Gap 14.7 (5-19); Aspartate Amino Transferase 21 U/L (0-32); Blood Urea Nitrogen 24 mg/dL (6-20); Carbon Dioxide 21 mmol/L (22-29); Chloride 103 mmol/L (98-107); Globulin 2.7 g/dL (1.3-4.6); Glomerular Filtration Rate 140.4 mL/min (90-130); Glucose 98 mg/dL (65-115); Magnesium 1.9 mg/dL (1.7-2.3); Osmolality Calculated 282 mOsm/kg (285-295); Potassium 4.7 mmol/L (3.5-5.1); Sodium 134 mmol/L (136-145); Total Bilirubin 0.2 mg/dL (0.15-1.2); Total Protein 6.3 g/dL (6.6-8.7)
[2022-10-04] MEDS: LORazepam 1 mg Tablet PO (07:50)
[2022-10-04] MEDS: tizanidine 4 mg Tablet PO (07:50)
[2022-10-04] MEDS: pantoprazole DR 40 mg Tablet PO (07:50)
[2022-10-04] MEDS: venlafaxine ER (24HR) 150 mg Capsule PO (07:50)
[2022-10-04] MEDS: metoprolol tartrate 25 mg Tablet PO (07:51)
[2022-10-04] MEDS: amlodipine 10 mg Tablet PO (07:52)
[2022-10-04] MEDS: apixaban 5 mg Tablet PO (07:52)
[2022-10-04] MEDS: sennosides-docusate Tablet 1 TAB PO (07:52)
[2022-10-04] MEDS: pregabalin 50 mg Capsule PO (07:52)
--- NOTE | 2022-10-04 09:59 | PC.OT ---
Patient is being discharged back to the half-way.
--- NOTE | 2022-10-04 10:06 | P.DS_ITS ---
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 Labs were checked today at the residential and she was noted to have hyponatremia and hyperkalemia for which she was referred into the emergency room. In the hospital patient was hydrated with IV fluids normal saline which was discontinued once we noted sodium was improving. Hyperkalemia and KARRIE improved as well which was likely related to polypharmacy and dehydration. Remained hemodynamically stable. Patient was hallucinating which resolved after we initiated her home regimen of anxiolytics and muscle relaxants. CT head unremarkable. No signs of hypercapnia patient was not hypoxic at all nonfocal neuro exam. Her culture were +2 months ago with MRSA, she has not shown any signs of sepsis or fever during her hospitalization, patient is not complaining of any any active headache, back pain at this point In May 2022 she had suspected left tibial plateau fracture.? 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 She now continues recovery at [facility].? Physical Exam Narrative: Nonfocal neuro exam Neck collar in place Abdomen soft Hemodynamic stable Currently on room air No active hallucinations Discharge Data Studies Completed and Pending Completed Studies During Hospitalization Category Date Time Status CT head wo con* [id number] Stat Cat Scan 10/03/22 10:01 Completed US renal BI* [id number] Stat Ultrasound 10/02/22 20:23 Completed Pending at discharge Category Date Time Status SARS Covid-2 Antigen Routine Lab 10/04/22 08:58 Uncollected Radiology Impressions Renal Ultrasound 10/02/22 20:23 IMPRESSION: Mild bilateral hydronephrosis with no obvious obstructing calculi in the renal/UPJ or UVJ regions. No significant parenchymal thinning. Findings may represent reflux versus obstructive causes such as ureteral calculi. Imaging by CT may be obtained if clinically indicated. No hydronephrosis was noted on prior CT April 2019. Head CT 10/03/22 10:01 IMPRESSION: 1. No acute intracranial hemorrhage. 2. Mild limitation by motion artifact and hardware artifact. 3. No midline shift and no hydrocephalus. Laboratory Results WBC 7.3 10^3/uL (4.0-10.0) 10/04/22 03:17 RBC 3.33 10^6/uL (4.1-5.3) L 10/04/22 03:17 Hgb 9.6 g/dL (11.5-15.3) L 10/04/22 03:17 Hct 31.2 % (37.0-47.0) L 10/04/22 03:17 MCV 93.7 fl (81-99) 10/04/22 03:17 MCH 28.8 pg (28.0-34.0) 10/04/22 03:17 MCHC 30.8 g/dL (30.0-36.0) 10/04/22 03:17 RDW 20.4 % (12.1-15.1) H 10/04/22 03:17 Plt Count 329 10^3/cmm (130-400) 10/04/22 03:17 MPV 10.4 fL (7.4-10.4) 10/04/22 03:17 Neut % (Auto) 49.2 % 10/04/22 03:17 Lymph % (Auto) 38.8 % 10/04/22 03:17 Bee % (Auto) 8.9 % 10/04/22 03:17 Eos % (Auto) 1.9 % 10/04/22 03:17 Baso % (Auto) 0.7 % 10/04/22 03:17 Neut # (Auto) 3.61 10^3/uL (1.8-7.7) 10/04/22 03:17 Lymph # (Auto) 2.9 10^3/uL (0.8-4.8) 10/04/22 03:17 Bee # (Auto) 0.7 10^3/uL (0.2-0.9) 10/04/22 03:17 Eos # (Auto) 0.1 10^3/uL (0.0-0.8) 10/04/22 03:17 Baso # (Auto) 0.1 10^3/uL (0.0-0.1) 10/04/22 03:17 Nucleated RBC % (auto) 0 % 10/04/22 03:17 Nucleated RBCs # 0.0 /100WBC 10/04/22 03:17 Sodium 134 mmol/L (136-145) L 10/04/22 03:17 Potassium 4.7 mmol/L (3.5-5.1) 10/04/22 03:17 Chloride 103 mmol/L (98-107) 10/04/22 03:17 Carbon Dioxide 21 mmol/L (22-29) L 10/04/22 03:17 Anion Gap 14.7 (5-19) 10/04/22 03:17 BUN 24 mg/dL (6-20) H 10/04/22 03:17 Creatinine 0.5 mg/dL (0.5-0.9) 10/04/22 03:17 GFR Calculation 140.4 mL/min (90-130) H 10/04/22 03:17 Glucose 98 mg/dL (65-115) 10/04/22 03:17 Calculated Osmolality 282 mOsm/kg (285-295) L 10/04/22 03:17 Calcium 10.0 mg/dL (8.5-10.5) 10/04/22 03:17 Magnesium 1.9 mg/dL (1.7-2.3) 10/04/22 03:17 Total Bilirubin 0.2 mg/dL (0.15-1.2) 10/04/22 03:17 AST 21 U/L (0-32) 10/04/22 03:17 ALT 18 U/L (0-33) 10/04/22 03:17 Alkaline Phosphatase 160 U/L (35-105) H 10/04/22 03:17 Total Protein 6.3 g/dL (6.6-8.7) L 10/04/22 03:17 Albumin 3.6 g/dL (3.5-5.2) 10/04/22 03:17 Globulin 2.7 g/dL (1.3-4.6) 10/04/22 03:17 Urine Color Yellow (Yellow) 10/02/22 20:38 Urine Appearance Clear (CLEAR) 10/02/22 20:38 Urine pH 6 (5-7) 10/02/22 20:38 Ur Specific [place] 1.010 (1.005-1.030) 10/02/22 20:38 Urine Protein Neg (Negative) 10/02/22 20:38 Urine Glucose (UA) Norm (Normal) 10/02/22 20:38 Urine Ketones Negative (Negative) 10/02/22 20:38 Urine Blood Neg (Negative) 10/02/22 20:38 Urine Nitrate Negative (Negative) 10/02/22 20:38 Urine Bilirubin Neg (Negative) 10/02/22 20:38 Urine Urobilinogen Neg mg/dL (Negative) 10/02/22 20:38 Ur Leukocyte Esterase Negative (Negative) 10/02/22 20:38 Ur Random Sodium 84 mmol/L 10/03/22 04:46 Ur Random Potassium 8 mmol/L 10/03/22 04:46 Ur Random Chloride 70 mmol/L 10/03/22 04:46 Vitals Last Vital Signs Temp 98.6 F 10/04/22 03:24 Pulse 76 10/04/22 09:34 Resp 20 H 10/04/22 09:34 BP 151/109 10/04/22 09:34 Pulse Ox 98 10/04/22 09:34 O2 Del Method Room Air 10/03/22 19:14 Discharge Plan Discharge Patient Disposition: Xfer SNF Condition: Stable Prescriptions: Continued metoprolol tartrate 25 mg tablet 25 mg PO BID bisacodyl [Dulcolax (bisacodyl)] 10 mg suppository 10 mg SD QPM PRN (Reason: Constipation) Botox 100 unit recon soln 155 unit IM Q90D Qty: 2 0RF famotidine 20 mg tablet 20 mg PO DAILY senna 8.6 mg Tablet 8.6 mg PO DAILY PRN (Reason: Constipation) albuterol sulfate 2.5 mg /3 mL (0.083 %) Solution For Nebulization 2.5 mg inhalation Q2H PRN (Reason: Shortness Of Breath) Miralax 17 gram Powder In Packet 17 g PO DAILY Zyrtec 10 mg Tablet 10 mg PO DAILY tizanidine 4 mg Tablet 8 mg PO TID Zofran 8 mg Tablet 8 mg PO Q6H PRN (Reason: Nausea And Vomiting) Bactrim DS 800-160 mg Tablet 2 tab PO BID Ativan 0.5 mg Tablet 0.5 mg PO TID PRN (Reason: Anxiety) Tums 200 mg calcium (500 mg) Tablet,Chewable 400 mg PO TID PRN (Reason: Heartburn) Colace 100 mg Capsule 100 mg PO BID Vitamin D2 1,250 mcg (50,000 unit) Capsule 50,000 unit PO Q7D Culturelle 10 billion cell Capsule 1 cap PO BID erythromycin 250 mg capsule,delayed release(DR/EC) 250 mg PO QID Vitamin D3 10 mcg (400 unit) Capsule 800 unit PO DAILY Cymbalta 30 mg Capsule,Delayed Release(Dr/Ec) 30 mg PO DAILY Xopenex HFA 45 mcg/actuation Hfa Aerosol Inhaler 2 puff INHALATION QID PRN (Reason: Shortness Of Breath) Lyrica 50 mg Capsule 50 mg PO BID Chloraseptic Sore Throat 6-10 mg Lozenge 1 haylie PO Q4H PRN (Reason: Sore Throat) oxycodone 10 mg Tablet 10 mg PO Q4H PRN (Reason: Pain) Eliquis 5 mg Tablet 5 mg PO BID Movantik 25 mg Tablet 25 mg PO QAM Rx Instructions: must be taken on empty stomach; no food 1 hr after or 2-3 hrs before dose hydrocortisone 0.5 % Cream 1 applic TOPICAL BID PRN (Reason: Rash) Rx Instructions: to lower back and sides as needed for rash hydrocortisone 0.5 % Cream See Rx Instructions .ROUTE .COMPLEX Rx Instructions: cleanse back,neck and other folds with soap and water rinse, dry and apply cream to lower back once a day Normal Saline Flush Syringe See Rx Instructions .ROUTE .COMPLEX Rx Instructions: 10 ml iv every shift to picc line in left arm for maint patency amlodipine 10 mg tablet 10 mg PO DAILY Qty: 30 0RF Changed acetaminophen 500 mg Tablet 650 mg PO Q6H PRN (Reason: Pain) Qty: 60 0RF lisinopril 10 mg Tablet 20 mg PO DAILY Qty: 30 0RF Discharge Orders: Discharge Order (Routine); Ordered 10/04/22 Ordered By: Betty Issa Referrals: Francine Singh FNP [Primary Care Provider] - Discharge Attestations Time Spent in Discharge Care*: greater than 30 min Status at Discharge: Cognitive status at discharge: cognitively intact , Behavioral status at discharge: cooperative , Quality Metrics Clinical Quality Measures [ No reported AMI, CVA or VTE this stay] Coding Level of Care Code Acute Code for [facility] Diagnoses Hyperkalemia E87.5 Hyponatremia E87.1 Acute kidney injury N17.9 Mucopolysaccharidosis 4 E76.219
[2022-10-04 11:07] LABS: SARS Covid-2 Antigen negative (Negative)
--- NOTE | 2022-10-04 12:00 | PC.NURSE ---
report called to [facility], awaiting transport.
--- NOTE | 2022-10-04 12:30 | PC.NURSE ---
Patient left facility to go back to [facility]> report was called, patient stable upon departure. [facility] transport picked her up.
== END 2022-10-04 12:32 | disposition skilled nursing facility (03) | DRG 641 ==
LOC: ER 22:14 → CSU 23:23
PROVIDERS: Admitting Provider Student in an Organized Health Care Education/Training Program; Emergency Provider Emergency Medicine; PCP Nurse Practitioner Family; Visit Provider Internal Medicine
DX: E87.5 Hyperkalemia (principal); E76.219 Morquio mucopolysaccharidoses, unspecified; N17.9 Acute kidney failure, unspecified; E87.1 Hypo-osmolality and hyponatremia; F98.8 Other specified behavioral and emotional disorders with onset usually occurring in childhood and adolescence; E86.0 Dehydration; Z86.14 Personal history of Methicillin resistant Staphylococcus aureus infection; Z79.891 Long term (current) use of opiate analgesic; F41.9 Anxiety disorder, unspecified; F32.A Depression, unspecified; J45.909 Unspecified asthma, uncomplicated; G89.29 Other chronic pain; Z86.711 Personal history of pulmonary embolism; I10 Essential (primary) hypertension; Z96.643 Presence of artificial hip joint, bilateral; Z98.1 Arthrodesis status
CPT/HCPCS: 36592; 70450; 76770; 80048; 80053; 81003; 82436; 83735; 84132; 84133; 84295; 84300; 85025; 87426; 93005; 96374; 96375; 97110; 99285; J0612; J1815; J7030

== ENCOUNTER 2022-10-03 08:00 | Oncology outpatient (recurring) (ONCR) | payer MEDICARE, MEDICAID, SELFPAY | END 2022-10-03 23:59 | disposition home or self-care (01) | PROVIDERS: PCP Nurse Practitioner Family; Visit Provider Nurse Practitioner | DX: Z53.9 Procedure and treatment not carried out, unspecified reason ==

== ENCOUNTER 2022-10-05 12:11 | Outpatient (CLI) | payer MEDICARE, MEDICAID, SELFPAY ==
--- NOTE | 2022-10-05 12:45 | US_ITS ---
WS: [id number] Exam: US soft tissue/extremity [id number] Date/Time of Exam: 10/05/2022 12:22 PM Reason For Exam: right axillary mass The bilateral axilla are evaluated with ultrasound. There are several subcentimeter short axis lymph nodes identified in the right and left axilla which do not have suspicious appearance. There was no evidence of discrete axillary mass or soft tissue flu id collection. US/US soft tissue/extremity [id number] IMPRESSION: 1. Several subcentimeter short axis lymph nodes in the right and left axilla wh ich do not have suspicious appearance. 2. No suspicious solid axillary masses identified. No abnormal soft tissue flui d collections were noted.
== END 2022-10-05 12:12 | disposition home or self-care (01) ==
LOC: RAD 12:13
PROVIDERS: PCP Nurse Practitioner Family; Visit Provider Internal Medicine Medical Oncology
DX: R22.31 Localized swelling, mass and lump, right upper limb (principal)
CPT/HCPCS: 76882

== ENCOUNTER 2022-10-10 07:43 | Oncology outpatient (recurring) (ONCR) | payer MEDICARE, MEDICAID, SELFPAY ==
[2022-10-10] VITALS (9 sets, daily range): BP systolic 91–136; BP diastolic 60–68; PULSE 50–78; RESP 16; TEMP 36.3–36.7; O2SAT 94–98
[2022-10-10] MEDS: diphenhydrAMINE 25 mg Capsule 50 MG PO (08:47)
[2022-10-10] MEDS: famotidine 20 mg Tablet PO (08:47)
[2022-10-10] MEDS: sodium chloride 0.9% 500 ML 75 ML IV (08:48)
[2022-10-10] MEDS: ondansetron 2 mg/ML SDV 2 mL 8 MG IVP (08:49)
[2022-10-10] MEDS: oxyCODONE 5 mg IR Tab/Cap 10 MG PO (09:04)
[2022-10-10] MEDS: LORazepam 0.5 mg Tablet PO (10:40)
== END 2022-10-10 23:59 | disposition home or self-care (01) ==
LOC: ONCMED 07:44
PROVIDERS: PCP Nurse Practitioner Family; Visit Provider Nurse Practitioner
DX: E00-E89 Endocrine, nutritional and metabolic diseases (principal); D50.9 Iron deficiency anemia, unspecified; Z79.899 Other long term (current) drug therapy
CPT/HCPCS: 96365; 96366; 96375; J1322; J2405; J7040; J7050

== ENCOUNTER 2022-10-15 15:39 | Outpatient (CLI) | payer MEDICARE, MEDICAID, SELFPAY ==
[2022-10-15 17:01] LABS: Basophils # 0.1 10^3/uL (0.0-0.1); Basophils % 0.9 %; Eosinophils # 0.1 10^3/uL (0.0-0.8); Eosinophils % 1.4 %; Hematocrit 29.2 % (37.0-47.0); Hemoglobin 9.1 g/dL (11.5-15.3); Lymphocytes # 2.6 10^3/uL (0.8-4.8); Lymphocytes % 33.5 %; Mean Corpuscular HGB Conc 31.2 g/dL (30.0-36.0); Mean Corpuscular Hemoglobin 28.7 pg (28.0-34.0); Mean Corpuscular Volume 92.1 fl (81-99); Mean Platelet Volume 9.9 fL (7.4-10.4); Monocytes # 0.9 10^3/uL (0.2-0.9); Monocytes % 11.3 %; Neutrophils # 4.08 10^3/uL (1.8-7.7); Neutrophils % 52.6 %; Nucleated Red Blood Cells % 0 %; Platelet Count 440 10^3/cmm (130-400); Red Blood Count 3.17 10^6/uL (4.1-5.3); Red Cell Distribution Width 18.4 % (12.1-15.1); White Blood Count 7.8 10^3/uL (4.0-10.0)
[2022-10-15 17:18] LABS: Anion Gap 20.1 (5-19); Blood Urea Nitrogen 66 mg/dL (6-20); Calcium 10.1 mg/dL (8.5-10.5); Carbon Dioxide 17 mmol/L (22-29); Chloride 95 mmol/L (98-107); Glomerular Filtration Rate 17.8 mL/min (90-130); Glucose 88 mg/dL (65-115); Osmolality Calculated 278 mOsm/kg (285-295); Sodium 125 mmol/L (136-145)
[2022-10-15 17:40] LABS: Potassium 7.1 mmol/L (3.5-5.1)
== END 2022-10-15 15:40 | disposition home or self-care (01) ==
LOC: LAB 15:39
PROVIDERS: PCP Nurse Practitioner Family; Visit Provider Family Medicine
DX: Z01.89 Encounter for other specified special examinations (principal)
CPT/HCPCS: 80048; 85025

== ENCOUNTER 2022-10-15 19:07 | Observation (INO) | payer MEDICARE, MEDICAID, SELFPAY ==
--- NOTE | 2022-10-15 19:10 | ECG_ITS ---
[facility] Test Date: 2022-10-15 Pat Name: Elisa Campbell Department: Room: 255 Gender: Female [employer] A[employer]: : 1985 Requested By: Josi Ernst Order Number: [id number] Sean MD: Bhakti Nicole M.D. Measurements Intervals [place] Rate: 82 P: 46 AR: 151 QRS: 38 QRSD: 94 T: 45 QT: 318 QTc: 373 Interpretive Statements SINUS RHYTHM Compared to ECG 10/02/2022 20:29:05 No significant changes Electronically Signed On 10-15-2022 21:36:16 CDT by Bhakti Nicole M.D. [email or web address]
--- NOTE | 2022-10-15 19:10 | XRR_ITS ---
PROCEDURE INFORMATION: Exam: XR Chest Exam date and time: 10/15/2022 7:34 PM Age: 36 years old Clinical indication: Other: Hyperkalemia TECHNIQUE: Imaging protocol: Radiologic exam of the chest. Views: 1 view. COMPARISON: CR XR chest 1V portable [id number] 06/16/2022 12:32 PM FINDINGS: Tubes, catheters and devices: Left PICC line with tip in the left brachycephalic region. Lungs: Shallow inspiration with crowding. Mild right perihilar ground-glass opacity. The left lung is clear. Pleural spaces: Unremarkable. No pleural effusion. No pneumothorax. Heart/Mediastinum: Unremarkable. No cardiomegaly. Bones/joints: Fusion hardware in the cervical and upper thoracic spine. Severe degenerative changes of the shoulders. XR/XR chest 1V portable [id number] IMPRESSION: Suspect mild right perihilar edema versus pneumonia.
[2022-10-15 19:17] VITALS: BMI 24.4
[2022-10-15 19:20] VITALS: BP 94/58; RESP 16; TEMP 37.5; O2SAT 98
--- NOTE | 2022-10-15 19:35 | W.ED.RECABL ---
HPI - Recheck/Abnormal Lab/Rx General: Chief Complaint: Recheck/Abnormal Lab/Rx Stated Complaint: K AT 7.1 Time Seen by Provider: 10/15/22 19:09 Source: patient and EMS Mode of arrival: EMS Limitations: no limitations History of Present Illness: 36-year-old female has extensive medical history she is in the intermediate she had been admitted 2 weeks ago to [facility] for a spinal infection and had surgery. 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 She states that she has no real medical complaints been feeling a little weak but they checked her blood work her potassium was 7.1 at the intermediate and sent her here for her hyperkalemia. Review of Systems Const: Reports: fatigue; Denies: fever(s), chills, body aches or change in appetite ENMT: Denies: throat pain or dental pain Card: Denies: chest pain Resp: Denies: dyspnea GI: Denies: abdominal pain, nausea, vomiting or diarrhea : Denies: dysuria Musc: Denies: neck pain or back pain Skin/Breast: Denies: rash Neuro: Denies: headache(s) PFSH ED PFSH: Medical History Acute kidney injury Anxiety and depression Asthma 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 Chronic migraine Chronic musculoskeletal pain Gastroparesis History of hip fracture History of pulmonary embolism Hyperkalemia Hypertension Hyponatremia 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 Transaminitis History of transaminitis, presumed secondary to acetaminophen Surgical History History of back surgery History of left knee surgery History of neck surgery History of right hip replacement History of spinal fusion In 2000 and in 2002 History of surgery on lower extremity (1998) Right leg surgery History of total left hip arthroplasty (12/2015) History of total right hip arthroplasty (03/2016) Port-A-Cath in place Family History Father Clotting disorder Hyperlipidemia Mother Hyperlipidemia Other Cancer Diabetes Hypertension Stroke Denies family history of CAD (coronary artery disease) Dementia Psychiatric illness Chronic kidney disease (CKD) Suicide Anesthesia complication Bleeding disorder Lung disease Social History Smoking and tobacco status: never smoked Second hand smoke exposure: Yes Alcohol intake: current Alcohol intake frequency: holidays/special occasions only Substance/Drug Use: never Physical Exam Const: COMMON NORMALS: patient oriented x3 HENMT: COMMON NORMALS: normocephalic and atraumatic HEAD & SCALP: normocephalic and atraumatic Neck/C-Spine: OTHER: in cervical brace Chest: COMMONS NORMALS: normal inspection of the chest and normal palpation of entire chest wall Resp: COMMON NORMALS: normal respiratory effort, No retractions, No use of accessory muscles and clear to auscultation bilaterally AUSCULTATION: clear to auscultation bilaterally Cardio: COMMON NORMALS: regular rate, regular rhythm and No murmurs present (Cardio) RATE: regular rate RHYTHM: regular rhythm GI: COMMON NORMALS: Normal to inspection, nondistended, normoactive bowel sounds present, Soft to palpation, non-tender and no masses PALPATION: Yes Soft to palpation Extremity: COMMON NORMALS: normal to inspection and full ROM Neuro: COMMON NORMALS: patient oriented x3, moves all extremities and no focal motor deficits Psych: COMMON NORMALS: mental status grossly normal, Normal thought process present and cooperative THOUGHT PROCESS: Normal thought process present Skin: COMMON NORMALS: no rashes or lesions noted and no wounds GENERAL SKIN EXAM: no rashes or lesions noted Course Vital Signs: Vital signs: Vital Signs Temperature 99.5 F 10/15/22 19:20 Respiratory Rate 16 10/15/22 19:20 Blood Pressure 94/58 10/15/22 19:20 Pulse Oximetry 98 10/15/22 19:20 Oxygen Delivery Me thod Room Air 10/15/22 19:20 MDM - Recheck/Abnormal Lab/Rx Medical Decision Making Patient presents here with acute kidney injury her creatinine here is 3.0 likely dehydration she is also has some mild hyperkalemia and hyponatremia spoke to the hospitalist and will admit at this time. Medical Records I reviewed the patient's medical records. Lab Data I reviewed the patient's lab results. 10/15/22 19:30 10/15/22 19:30 Radiology Impressions Chest X-Ray 10/15/22 19:10 IMPRESSION: Suspect mild right perihilar edema versus pneumonia. Laboratory Results WBC 9.2 10^3/uL (4.0-10.0) 10/15/22: RBC 3.29 10^6/uL (4.1-5.3) L 10/15/22 19: Hgb 9.5 g/dL (11.5-15.3) L 10/15/22: Hct 30.3 % (37.0-47.0) L 10/15/22: MCV 92.1 fl (81-99) 10/15/22: MCH 28.9 pg (28.0-34.0) 10/15/22: MCHC 31.4 g/dL (30.0-36.0) 10/15/22: RDW 18.6 % (12.1-15.1) H 10/15/22: Plt Count 443 10^3/cmm (130-400) H 10/15/22: MPV 9.6 fL (7.4-10.4) 10/15/22: Neut % (Auto) 58.3 % 10/15/22: Lymph % (Auto) 27.6 % 10/15/22: [place] % (Auto) 11.6 % 10/15/22: Eos % (Auto) 1.4 % 10/15/22: Baso % (Auto) 0.8 % 10/15/22: Neut # (Auto) 5.38 10^3/uL (1.8-7.7) 10/15/22: Lymph # (Auto) 2.6 10^3/uL (0.8-4.8) 10/15/22: [place] # (Auto) 1.1 10^3/uL (0.2-0.9) H 10/15/22: Eos # (Auto) 0.1 10^3/uL (0.0-0.8) 10/15/22: Baso # (Auto) 0.1 10^3/uL (0.0-0.1) 10/15/22: Nucleated RBC % (auto) 0 % 06/12/23 19:30 Nucleated RBCs # 0.0 /100WBC 10/15/22 19:30 PT 23.10 SECONDS (12.1-14.9) H 10/15/22 19:30 INR 1.97 (0.8-1.2) H 10/15/22 19:30 Sodium 125 mmol/L (136-145) L 10/15/22 19:30 Potassium 6.2 mmol/L (3.5-5.1) H 10/15/22 19:30 Chloride 95 mmol/L (98-107) L 10/15/22 19:30 Carbon Dioxide 16 mmol/L (22-29) L 10/15/22 19:30 Anion Gap 20.2 (5-19) H 10/15/22 19:30 BUN 67 mg/dL (6-20) H 10/15/22 19:30 Creatinine 3.1 mg/dL (0.5-0.9) H 10/15/22 19:30 GFR Calculation 17.1 mL/min (90-130) L 10/15/22 19:30 Glucose 84 mg/dL (65-115) 10/15/22 19:30 Calculated Osmolality 279 mOsm/kg (285-295) L 10/15/22 19:30 Calcium 10.4 mg/dL (8.5-10.5) 10/15/22 19:30 Total Bilirubin 0.2 mg/dL (0.15-1.2) 10/15/22 19:30 AST 16 U/L (0-32) 10/15/22 19:30 ALT 11 U/L (0-33) 10/15/22 19:30 Alkaline Phosphatase 131 U/L (35-105) H 10/15/22 19:30 Total Protein 7.4 g/dL (6.6-8.7) 10/15/22 19:30 Albumin 3.9 g/dL (3.5-5.2) 10/15/22 19:30 Globulin 3.5 g/dL (1.3-4.6) 10/15/22 19:30 Discharge Plan Discharge Patient Disposition: Admitted As Inpatient Clinical Impression: Acute kidney injury, Acute hyponatremia, Acute hyperkalemia Condition: Stable Prescriptions: No Action metoprolol tartrate 25 mg tablet 25 mg PO BID bisacodyl [Dulcolax (bisacodyl)] 10 mg suppository 10 mg PA QPM PRN (Reason: Constipation) Botox 100 unit recon soln 155 unit IM Q90D Qty: 2 0RF famotidine 20 mg tablet 20 mg PO DAILY senna 8.6 mg Tablet 8.6 mg PO DAILY PRN (Reason: Constipation) albuterol sulfate 2.5 mg /3 mL (0.083 %) Solution For Nebulization 2.5 mg inhalation Q2H PRN (Reason: Shortness Of Breath) Miralax 17 gram Powder In Packet 17 g PO DAILY Zyrtec 10 mg Tablet 10 mg PO DAILY tizanidine 4 mg Tablet 8 mg PO TID ondansetron HCl 8 mg Tablet 8 mg PO Q6H PRN (Reason: Nausea And Vomiting) Bactrim DS 800-160 mg Tablet 2 tab PO BID Ativan 0.5 mg Tablet 0.5 mg PO TID PRN (Reason: Anxiety) Tums 200 mg calcium (500 mg) Tablet,Chewable 400 mg PO TID PRN (Reason: Heartburn) Colace 100 mg Capsule 100 mg PO BID Vitamin D2 1,250 mcg (50,000 unit) Capsule 50,000 unit PO Q7D Culturelle 10 billion cell Capsule 1 cap PO BID erythromycin 250 mg capsule,delayed release(DR/EC) 250 mg PO QID Vitamin D3 10 mcg (400 unit) Capsule 800 unit PO DAILY Cymbalta 30 mg Capsule,Delayed Release(Dr/Ec) 30 mg PO DAILY Xopenex HFA 45 mcg/actuation Hfa Aerosol Inhaler 2 puff INHALATION QID PRN (Reason: Shortness Of Breath) Lyrica 50 mg Capsule 50 mg PO BID Chloraseptic Sore Throat 6-10 mg Lozenge 1 haylie PO Q4H PRN (Reason: Sore Throat) oxycodone 10 mg Tablet 10 mg PO Q4H PRN (Reason: Pain) Eliquis 5 mg Tablet 5 mg PO BID Movantik 25 mg Tablet 25 mg PO QAM Rx Instructions: must be taken on empty stomach; no food 1 hr after or 2-3 hrs before dose hydrocortisone 0.5 % Cream 1 applic TOPICAL BID PRN (Reason: Rash) Rx Instructions: to lower back and sides as needed for rash hydrocortisone 0.5 % Cream See Rx Instructions .ROUTE .COMPLEX Rx Instructions: cleanse back,neck and other folds with soap and water rinse, dry and apply cream to lower back once a day Normal Saline Flush Syringe See Rx Instructions .ROUTE .COMPLEX Rx Instructions: 10 ml iv every shift to picc line in left arm for maint patency acetaminophen 500 mg Tablet 650 mg PO Q6H PRN (Reason: Pain) Qty: 60 0RF amlodipine 10 mg tablet 10 mg PO DAILY Qty: 30 0RF lisinopril 10 mg Tablet 20 mg PO DAILY Qty: 30 0RF Referrals: Francine Singh FNP [Primary Care Provider] - Coding Level of Care Code ED [employer] for [facility]
[2022-10-15 19:38] LABS: Basophils # 0.1 10^3/uL (0.0-0.1); Basophils % 0.8 %; Eosinophils # 0.1 10^3/uL (0.0-0.8); Eosinophils % 1.4 %; Hematocrit 30.3 % (37.0-47.0); Hemoglobin 9.5 g/dL (11.5-15.3); Lymphocytes # 2.6 10^3/uL (0.8-4.8); Lymphocytes % 27.6 %; Mean Corpuscular HGB Conc 31.4 g/dL (30.0-36.0); Mean Corpuscular Hemoglobin 28.9 pg (28.0-34.0); Mean Corpuscular Volume 92.1 fl (81-99); Mean Platelet Volume 9.6 fL (7.4-10.4); Monocytes # 1.1 10^3/uL (0.2-0.9); Monocytes % 11.6 %; Neutrophils # 5.38 10^3/uL (1.8-7.7); Neutrophils % 58.3 %; Nucleated Red Blood Cells % 0 %; Platelet Count 443 10^3/cmm (130-400); Red Blood Count 3.29 10^6/uL (4.1-5.3); Red Cell Distribution Width 18.6 % (12.1-15.1); White Blood Count 9.2 10^3/uL (4.0-10.0)
[2022-10-15 19:50] LABS: INR 1.97 (0.8-1.2)
[2022-10-15 19:54] LABS: Alanine Aminotransferase 11 U/L (0-33); Albumin Level 3.9 g/dL (3.5-5.2); Alkaline Phosphatase 131 U/L (35-105); Anion Gap 20.2 (5-19); Aspartate Amino Transferase 16 U/L (0-32); Blood Urea Nitrogen 67 mg/dL (6-20); Calcium 10.4 mg/dL (8.5-10.5); Carbon Dioxide 16 mmol/L (22-29); Chloride 95 mmol/L (98-107); Globulin 3.5 g/dL (1.3-4.6); Glomerular Filtration Rate 17.1 mL/min (90-130); Glucose 84 mg/dL (65-115); Osmolality Calculated 279 mOsm/kg (285-295); Potassium 6.2 mmol/L (3.5-5.1); Sodium 125 mmol/L (136-145); Total Bilirubin 0.2 mg/dL (0.15-1.2); Total Protein 7.4 g/dL (6.6-8.7)
[2022-10-15] MEDS: sodium chloride 0.9% 1,000 ML 999 ML IV (20:12)
[2022-10-15 20:19] VITALS: BP 98/58; PULSE 73; RESP 16; O2SAT 95
[2022-10-15] MEDS: insulin regular-human 100 units/1 mL 10 UNIT IVP (20:20)
[2022-10-15 20:23] LABS: Glucose Point of Care 77 mg/dL (70-110)
[2022-10-15 20:49] VITALS: BP 104/53; PULSE 140; RESP 16; O2SAT 94
[2022-10-15 21:00] LABS: Glucose Point of Care 117 mg/dL (70-110)
--- NOTE | 2022-10-15 21:08 | PM.HP ---
Providers/Chief Complaint Admitting Physician: Meeta Carlson MD Primary Care Provider: Francine Singh Chief Complaint: K AT 7.1 History of Present Illness Elisa Campbell is a 36 year old female with the history of mucopolysaccharoidosis type 4, recent back surgery, anxiety/depressionwas sent from the long-term for c/o generalized weakness and back spasms. Labs checked in the [place] showed serum potassium to be 7.1. She denies any nausea, vomiting, abdoominal pain, but reports drinking less water recently. No h/o cold/cough/chest pain or urinary complaints. Review of Systems Const: Reports: fatigue; Denies: fever(s), chills, body aches or change in appetite ENMT: Denies: throat pain or dental pain Card: Denies: chest pain Resp: Denies: dyspnea GI: Denies: abdominal pain, nausea, vomiting or diarrhea : Denies: dysuria Musc: Denies: neck pain or back pain Skin/Breast: Denies: rash Neuro: Denies: headache(s) Medications/Allergies Home Medications Medication Instructions Recorded Confirmed Last Taken Type bisacodyl 10 mg rectal suppository 10 mg GA QPM PRN Constipation 09/26/22 10/16/22 Unknown History (Dulcolax (bisacodyl)) metoprolol tartrate 25 mg tablet 25 mg PO BID 09/26/22 10/16/22 Unknown History Lactobacillus rhamnosus GG 10 1 cap PO BID 10/03/22 10/16/22 Unknown History billion cell capsule (Culturelle) albuterol sulfate 2.5 mg/3 mL 2.5 mg inhalation Q2H PRN 10/03/22 10/16/22 Unknown History (0.083 %) solution for nebulization Shortness Of Breath apixaban 5 mg tablet (Eliquis) 5 mg PO BID 10/03/22 10/16/22 Unknown History benzocaine 6 mg-menthol 10 mg 1 haylie PO Q4H PRN Sore Throat 10/03/22 10/16/22 Unknown History lozenges (Chloraseptic Sore Throat) calcium carbonate 200 mg calcium 400 mg PO TID PRN Heartburn 10/03/22 10/16/22 Unknown History (500 mg) chewable tablet (Tums) cetirizine 10 mg tablet (Zyrtec) 10 mg PO DAILY 10/03/22 10/16/22 Unknown History cholecalciferol (vitamin D3) 10 800 unit PO DAILY 10/03/22 10/16/22 Unknown History mcg (400 unit) capsule (Vitamin D3) docusate sodium 100 mg capsule 100 mg PO BID 10/03/22 10/16/22 Unknown History (Colace) duloxetine 30 mg capsule,delayed 30 mg PO DAILY 10/03/22 10/16/22 Unknown History release (Cymbalta) ergocalciferol (vitamin D2) 1,250 50,000 unit PO Q7D 10/03/22 10/16/22 09/26/22 History mcg (50,000 unit) capsule (Vitamin D2) erythromycin 250 mg 250 mg PO QID 10/03/22 10/16/22 Unknown History capsule,delayed release famotidine 20 mg tablet 20 mg PO DAILY 10/03/22 10/16/22 Unknown History hydrocortisone 0.5 % topical cream 1 applic topical BID PRN Rash 10/03/22 10/16/22 Unknown History levalbuterol tartrate 45 2 puff inhalation QID PRN 10/03/22 10/16/22 Unknown History mcg/actuation aerosol inhaler Shortness Of Breath (Xopenex HFA) lorazepam 0.5 mg tablet (Ativan) 0.5 mg PO TID PRN Anxiety 10/03/22 10/16/22 Unknown History naloxegol 25 mg tablet (Movantik) 25 mg PO QAM 10/03/22 10/16/22 Unknown History ondansetron HCl 8 mg tablet 8 mg PO Q6H PRN Nausea And Vomiting 10/03/22 10/16/22 Unknown History oxycodone 10 mg tablet 10 mg PO Q4H PRN Pain 10/03/22 10/16/22 Unknown History polyethylene glycol 3350 17 gram 17 g PO DAILY 10/03/22 10/16/22 Unknown History oral powder packet (Miralax) pregabalin 50 mg capsule (Lyrica) 50 mg PO BID 10/03/22 10/16/22 Unknown History sennosides 8.6 mg tablet (senna) 8.6 mg PO DAILY PRN Constipation 10/03/22 10/16/22 Unknown History sodium chloride 0.9 % (flush) See Rx Instructions .Route .COMPLEX 10/03/22 10/16/22 Unknown History (Normal Saline Flush 0.9 % injection syringe) sulfamethoxazole 800 2 tab PO BID 10/03/22 10/16/22 Unknown History mg-trimethoprim 160 mg tablet (Bactrim DS) tizanidine 4 mg tablet 8 mg PO TID 10/03/22 10/16/22 Unknown History amlodipine 10 mg tablet 10 mg PO DAILY #30 tabs 10/04/22 10/16/22 Unknown Rx lisinopril 10 mg tablet 20 mg PO DAILY #30 tabs 10/04/22 10/16/22 Unknown Rx acetaminophen 325 mg tablet 650 mg PO Q6H PRN pain/fever 10/16/22 10/16/22 Unknown History (Tylenol) methylphenidate HCl 27 mg 27 mg PO DAILY 10/16/22 10/16/22 Unknown History tablet,extended release 24 hr onabotulinumtoxinA 100 unit See Rx Instructions .Route .COMPLEX 10/16/22 10/16/22 Unknown History solution for injection (Botox) tetrahydrozoline 0.05 %-[id number] 2 drp ophthalmic (eye) Q4H PRN 10/16/22 10/16/22 Unknown History 0.1 %-[id number] 1 %-povdn 1 % eye itchy red eyes drops (Eye Drops (with povidone)) Allergies Allergy/AdvReac Type Severity Reaction Status Date / Time azithromycin Allergy nausea and Verified 09/26/22 09:53 vomiting gabapentin Allergy slurred Verified 09/26/22 09:53 speech metoclopramide Allergy twitching Verified 09/26/22 09:53 prochlorperazine Allergy hallucinati Verified 09/26/22 09:53 ons tramadol Allergy seizure Verified 09/26/22 09:53 silk tape Allergy ALGY-Redness Uncoded 09/26/22 09:53 of Skin PFSH Acute PFSH: Medical History Acute kidney injury Anxiety and depression Asthma 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 Chronic migraine Chronic musculoskeletal pain Gastroparesis History of hip fracture History of pulmonary embolism Hyperkalemia Hypertension Hyponatremia 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 Transaminitis History of transaminitis, presumed secondary to acetaminophen Surgical History History of back surgery History of left knee surgery History of neck surgery History of right hip replacement History of spinal fusion In 2000 and in 2002 History of surgery on lower extremity (1998) Right leg surgery History of total left hip arthroplasty (12/2015) History of total right hip arthroplasty (03/2016) Port-A-Cath in place Family History Father Clotting disorder Hyperlipidemia Mother Hyperlipidemia Other Cancer Diabetes Hypertension Stroke Denies family history of CAD (coronary artery disease) Dementia Psychiatric illness Chronic kidney disease (CKD) Suicide Anesthesia complication Bleeding disorder Lung disease Social History Smoking and tobacco status: never smoked Second hand smoke exposure: Yes Alcohol intake: current Alcohol intake frequency: holidays/special occasions only Substance/Drug Use: never Vitals/I&O/Wt Last Vital Signs Temp 99.5 F 10/15/22 19:20 Resp 16 10/15/22 19:20 BP 94/58 10/15/22 19:20 Pulse Ox 98 10/15/22 19:20 O2 Del Method Room Air 10/15/22 19:20 10/15/22 10/15/22 10/15/22 06:59 14:59 22:59 Intake Total 50 / 50 Balance 50 / 50 Weight last 48 hrs Weight 36.287 kg Physical Exam HENMT: COMMON NORMALS: normocephalic and atraumatic Resp: OTHER: chest clear to ascultation B/L Cardio: OTHER: S1S2 normal , no murmurs Neuro: COMMON NORMALS: patient oriented x3 and moves all extremities Data 10/16/22 06:41 10/16/22 18:32 CXR: My impression: likely atelectasis due to recent back surgery Radiologist's impression: mild left perihilar edema vs pneumonia. EKG 1: My Interpretation: normal sinus rhythm, no new changes seen. A&P Assessment and plan (1) Acute kidney injury: likely secondary to dehydration. (2) Acute hyponatremia: likely secondary to dehydration (3) Acute hyperkalemia: likely secondary to dehydration and polypharmacy (4) Anemia: anemia of chronic disease Plan admit to observation. will give IV fluids normal saline at 100ml/hr, repeat labs in am. Attestations Medical Necessity Statement*: care might extend more than 2 nights since patient requires hydration and hemodynamic stabilization Time Spent in Patient Care: 30min Coding Level of Care Code 53756 Diagnoses Acute kidney injury N17.9 Acute hyponatremia E87.1 Acute hyperkalemia E87.5 Anemia D64.9 Time Spent (min) 30
--- NOTE | 2022-10-15 21:37 | PC.NURSE ---
Patient c/o back pain 11/12. Requesting pain medications. Per verbal order Dr Carlson, Oxycodone 10mg q4 prn. RBVO.
[2022-10-15 21:55] VITALS: BP 116/71; RESP 16; O2SAT 93
[2022-10-15 21:56] VITALS: RESP 17
[2022-10-15] MEDS: oxyCODONE 5 mg IR Tab/Cap 10 MG PO (21:56)
[2022-10-16] VITALS (53 sets, daily range): BP systolic 63–112; BP diastolic 31–73; PULSE 62–95; RESP 15–22; TEMP 36.7–37.9; O2SAT 80–100
[2022-10-16] MEDS: ergocalciferol (vitamin D2) 50,000 Unit Capsule 50000 UNIT PO (04:01)
[2022-10-16] MEDS: sodium chloride 0.9% 1,000 ML 100 ML IV (04:02)
[2022-10-16] MEDS: oxyCODONE 5 mg IR Tab/Cap 10 MG PO ×2 (04:18→14:33)
[2022-10-16 06:53] LABS: Basophils # 0.1 10^3/uL (0.0-0.1); Basophils % 0.7 %; Eosinophils % 0.1 %; Hematocrit 35.3 % (37.0-47.0); Hemoglobin 10.9 g/dL (11.5-15.3); Lymphocytes # 2.2 10^3/uL (0.8-4.8); Lymphocytes % 21.5 %; Mean Corpuscular HGB Conc 30.9 g/dL (30.0-36.0); Mean Corpuscular Hemoglobin 28.9 pg (28.0-34.0); Mean Corpuscular Volume 93.6 fl (81-99); Mean Platelet Volume 9.2 fL (7.4-10.4); Monocytes % 9.3 %; Neutrophils # 7.07 10^3/uL (1.8-7.7); Nucleated Red Blood Cells % 0 %; Platelet Count 498 10^3/cmm (130-400); Red Blood Count 3.77 10^6/uL (4.1-5.3); White Blood Count 10.4 10^3/uL (4.0-10.0)
[2022-10-16 07:12] LABS: Alanine Aminotransferase 11 U/L (0-33); Albumin Level 3.5 g/dL (3.5-5.2); Alkaline Phosphatase 145 U/L (35-105); Anion Gap 22.1 (5-19); Aspartate Amino Transferase 13 U/L (0-32); Blood Urea Nitrogen 43 mg/dL (6-20); Calcium 10.3 mg/dL (8.5-10.5); Carbon Dioxide 13 mmol/L (22-29); Chloride 100 mmol/L (98-107); Globulin 4.1 g/dL (1.3-4.6); Glomerular Filtration Rate 34.2 mL/min (90-130); Glucose 73 mg/dL (65-115); Osmolality Calculated 277 mOsm/kg (285-295); Potassium 6.1 mmol/L (3.5-5.1); Sodium 129 mmol/L (136-145); Total Bilirubin 0.2 mg/dL (0.15-1.2); Total Protein 7.6 g/dL (6.6-8.7)
--- NOTE | 2022-10-16 07:38 | PC.PHAR ---
pt is from [facility] [phone] shirley fax mar and tar
[2022-10-16] MEDS: lisinopril 10 mg Tablet 20 MG PO (08:24)
[2022-10-16] MEDS: famotidine 20 mg Tablet PO (08:24)
[2022-10-16] MEDS: lactobacillus 1 Tablet 1 TAB PO ×2 (08:25→20:20)
[2022-10-16] MEDS: cholecalciferol (vitamin D3) 1,000 unit Tablet 1000 UNIT PO (08:25)
[2022-10-16] MEDS: duloxetine 30 mg Capsule PO (08:25)
[2022-10-16] MEDS: cetirizine 10 mg Tablet PO (08:25)
[2022-10-16] MEDS: tizanidine 4 mg Tablet 8 MG PO ×3 (08:25→20:18)
[2022-10-16] MEDS: apixaban 5 mg Tablet PO ×2 (08:25→20:18)
[2022-10-16] MEDS: pregabalin 50 mg Capsule PO ×2 (08:26→20:18)
--- NOTE | 2022-10-16 08:40 | PC.NURSE ---
docosate-dropped med in room pulled new one
[2022-10-16] MEDS: docusate sodium 100 mg Capsule PO ×2 (08:44→20:18)
--- NOTE | 2022-10-16 10:14 | P.PN_ITS ---
Subjective Subjective: HNP reviewed Patient is awake and alert Not endorsing any active complaints Eating breakfast Vitals/I&O/Wt Last Vital Signs Temp 98.1 F 10/16/22 04:54 Pulse 95 10/16/22 07:29 Resp 16 10/16/22 07:29 BP 112/73 10/16/22 04:54 Pulse Ox 97 10/16/22 07:29 O2 Del Method Room Air 10/16/22 07:29 10/15/22 10/16/22 10/16/22 22:59 06:59 14:59 Intake Total 1050 / 1050 120 / 1170 118 / 118 Output Total 300 / 300 Balance 1050 / 1050 -180 / 870 118 / 118 Weight last 48 hrs Weight 36.287 kg Physical Exam Narrative: Patient lying supine Clinically looks dehydrated Currently on room air Pleasant and cooperative No active signs of neurological deficits No significant edema Complaining of mild numbness of bilateral upper extremities Abdomen soft Eating breakfast No active hallucination S1, S2 Currently on room air Data 10/16/22 06:41 10/16/22 06:41 A&P Assessment and plan (1) Acute kidney injury: (2) Acute hyperkalemia: (3) Acute hyponatremia: (4) Mucopolysaccharidosis 4: (5) Chronic migraine without aura, intractable, with status migrainosus: (6) Chronic musculoskeletal pain: (7) ADD (attention deficit disorder): Plan Recurrent hyperkalemia with hyponatremia She does not show signs of addisonian crisis Blood sugar normal Awake and alert RTA? We will consult nephro because of her recurrent electrolyte abnormality For hyperkalemia I will give her D50 amp along insulin 10 units and 1 amp of bicarb Kayexalate Continue IV fluids for hyponatremia clinically she looks dehydrated Hypovolemic hyponatremia Discontinue lisinopril KARRIE related to dehydration Creatinine improving with IV fluid hydration Afebrile I do not suspect UTI at this Metabolic acidosis due to uremia bicarb is 13 We will continue her on bicarb p.o. regimen starting today Recent back surgery Anemia of chronic disease Hemoglobin stable I will continue her opioids muscle relaxants and antidepressants Full code Regular diet DVT prophylaxis covered due to use of Attestations Medical Necessity Statement*: Continue medical management Diagnoses Acute kidney injury N17.9 Acute hyperkalemia E87.5 Acute hyponatremia E87.1 Mucopolysaccharidosis 4 E76.219 Chronic migraine without aura, intractable, with status migrainosus G43.711 Chronic musculoskeletal pain M79.18; G89.29 ADD (attention deficit disorder) F98.8
--- NOTE | 2022-10-16 10:27 | PC.CHAP ---
Pastoral Care Encounter/Spiritual Assessment Type of Contact [] Declined ceiling installer visit [] Patient/Family/Request visit [] Outpatient visit [] Follow-up visit [] Physician referral [] Code/Alert [x] Routine visit [] Staff referral [] Actively dying [] Patient sleeping [] Family support [] [] Out of room [] Palliative care [] [] Receiving care in room [] Pre-surgical visit [] Trauma [] Long length of stay [] ICU visit [] Other: Relational/Emotional Strength [x] Patient feels connected with others/family/visitors/staff [] Distress [] Loneliness/isolation [] Abandonment Spirituality of Patient [x] Person of Shae [] Attends Holiness of their Shae [x] Believes in Prayer [] Reads Bible or Orthodox materials [] There are Spiritual issues to be addressed [employer] Interventions [x] Prayer [x] Active listening [] Non-anxious presence [] Spiritual/emotional support [] Crisis/trauma care [] Spiritual counseling [] Bereavement support [] Provided bereavement packet [] Provided Bible/devotional materials [] Provided toy/stuffed animal, coloring book to patient or family member [] Provided Communion [] Anointing/[place] [] Salvation [] Completed spiritual assessment [] Other: Impact on Illness or Injury [] Angry [] Fearful [] Anxious [] Often cries [] Exhaustion [] Unable to work [] Unable to attend uatsdin [] Unable to walk/stand [] Unable to read [] Unable to drive [] Unable to eat/drink [] Unable to sleep [] Unable to be with family [] Patient intubated [] Other: Summary Time spent with patient 5 min
[2022-10-16] MEDS: insulin regular-human 10 UNIT in SYRINGE 1 EACH IVP (10:58)
[2022-10-16] MEDS: sodium polystyrene sulfonate 15 gm/60 mL Btl PO (11:03)
[2022-10-16] MEDS: sodium bicarbonate 50 MEQ in sodium chloride 0.45% 1,000 ML 100 MEQ IV ×2 (11:22→23:56)
[2022-10-16 11:33] LABS: Glucose Point of Care 287 mg/dL (70-110)
[2022-10-16] MEDS: sodium bicarbonate 650 mg Tablet PO ×2 (14:33→20:18)
--- NOTE | 2022-10-16 14:34 | P.CONIM_ITS ---
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 Patient was recently admitted to the hospital at the end of September for similar problem. Noted patient is on Bactrim and also on lisinopril. She is currently on bicarbonate drip, lisinopril is on hold and Bactrim was discontinued. She currently denies any complaints. Review of Systems Narrative: other ros negative Medications/Allergies Home Medications Medication Instructions Recorded Confirmed Last Taken Type bisacodyl 10 mg rectal suppository 10 mg FL QPM PRN Constipation 09/26/22 10/16/22 Unknown History (Dulcolax (bisacodyl)) metoprolol tartrate 25 mg tablet 25 mg PO BID 09/26/22 10/16/22 Unknown History Lactobacillus rhamnosus GG 10 1 cap PO BID 10/03/22 10/16/22 Unknown History billion cell capsule (Culturelle) albuterol sulfate 2.5 mg/3 mL 2.5 mg inhalation Q2H PRN 10/03/22 10/16/22 Unknown History (0.083 %) solution for nebulization Shortness Of Breath apixaban 5 mg tablet (Eliquis) 5 mg PO BID 10/03/22 10/16/22 Unknown History benzocaine 6 mg-menthol 10 mg 1 haylie PO Q4H PRN Sore Throat 10/03/22 10/16/22 Unknown History lozenges (Chloraseptic Sore Throat) calcium carbonate 200 mg calcium 400 mg PO TID PRN Heartburn 10/03/22 10/16/22 Unknown History (500 mg) chewable tablet (Tums) cetirizine 10 mg tablet (Zyrtec) 10 mg PO DAILY 10/03/22 10/16/22 Unknown History cholecalciferol (vitamin D3) 10 800 unit PO DAILY 10/03/22 10/16/22 Unknown History mcg (400 unit) capsule (Vitamin D3) docusate sodium 100 mg capsule 100 mg PO BID 10/03/22 10/16/22 Unknown History (Colace) duloxetine 30 mg capsule,delayed 30 mg PO DAILY 10/03/22 10/16/22 Unknown History release (Cymbalta) ergocalciferol (vitamin D2) 1,250 50,000 unit PO Q7D 10/03/22 10/16/22 09/26/22 History mcg (50,000 unit) capsule (Vitamin D2) erythromycin 250 mg 250 mg PO QID 10/03/22 10/16/22 Unknown History capsule,delayed release famotidine 20 mg tablet 20 mg PO DAILY 10/03/22 10/16/22 Unknown History hydrocortisone 0.5 % topical cream 1 applic topical BID PRN Rash 10/03/22 10/16/22 Unknown History levalbuterol tartrate 45 2 puff inhalation QID PRN 10/03/22 10/16/22 Unknown History mcg/actuation aerosol inhaler Shortness Of Breath (Xopenex HFA) lorazepam 0.5 mg tablet (Ativan) 0.5 mg PO TID PRN Anxiety 10/03/22 10/16/22 Unknown History naloxegol 25 mg tablet (Movantik) 25 mg PO QAM 10/03/22 10/16/22 Unknown History ondansetron HCl 8 mg tablet 8 mg PO Q6H PRN Nausea And Vomiting 10/03/22 10/16/22 Unknown History oxycodone 10 mg tablet 10 mg PO Q4H PRN Pain 10/03/22 10/16/22 Unknown History polyethylene glycol 3350 17 gram 17 g PO DAILY 10/03/22 10/16/22 Unknown History oral powder packet (Miralax) pregabalin 50 mg capsule (Lyrica) 50 mg PO BID 10/03/22 10/16/22 Unknown History sennosides 8.6 mg tablet (senna) 8.6 mg PO DAILY PRN Constipation 10/03/22 10/16/22 Unknown History sodium chloride 0.9 % (flush) See Rx Instructions .Route .COMPLEX 10/03/22 10/16/22 Unknown History (Normal Saline Flush 0.9 % injection syringe) sulfamethoxazole 800 2 tab PO BID 10/03/22 10/16/22 Unknown History mg-trimethoprim 160 mg tablet (Bactrim DS) tizanidine 4 mg tablet 8 mg PO TID 10/03/22 10/16/22 Unknown History amlodipine 10 mg tablet 10 mg PO DAILY #30 tabs 10/04/22 10/16/22 Unknown Rx lisinopril 10 mg tablet 20 mg PO DAILY #30 tabs 10/04/22 10/16/22 Unknown Rx acetaminophen 325 mg tablet 650 mg PO Q6H PRN pain/fever 10/16/22 10/16/22 Unknown History (Tylenol) methylphenidate HCl 27 mg 27 mg PO DAILY 10/16/22 10/16/22 Unknown History tablet,extended release 24 hr onabotulinumtoxinA 100 unit See Rx Instructions .Route .COMPLEX 10/16/22 10/16/22 Unknown History solution for injection (Botox) tetrahydrozoline 0.05 %-[id number] 2 drp ophthalmic (eye) Q4H PRN 10/16/22 10/16/22 Unknown History 0.1 %-[id number] 1 %-povdn 1 % eye itchy red eyes drops (Eye Drops (with povidone)) Allergies Allergy/AdvReac Type Severity Reaction Status Date / Time azithromycin Allergy nausea and Verified 09/26/22 09:53 vomiting gabapentin Allergy slurred Verified 09/26/22 09:53 speech metoclopramide Allergy twitching Verified 09/26/22 09:53 prochlorperazine Allergy hallucinati Verified 09/26/22 09:53 ons tramadol Allergy seizure Verified 09/26/22 09:53 silk tape Allergy ALGY-Redness Uncoded 09/26/22 09:53 of Skin Current Medications Generic Name Dose Route Start Last Admin Trade Name Freq PRN Reason Stop Dose Admin Apixaban 5 mg 10/16/22 09:00 10/16/22 08:25 Apixaban 5 Mg Tablet PO 5 mg BID YONI Administration Cetirizine HCl 10 mg 10/16/22 09:00 10/16/22 08:25 Cetirizine 10 Mg Tablet PO 10 mg DAILY YONI Administration Docusate Sodium 100 mg 10/16/22 09:00 10/16/22 08:44 Docusate Sodium 100 Mg Capsule PO 100 mg BID YONI Administration Duloxetine HCl 30 mg 10/16/22 09:00 10/16/22 08:25 Duloxetine 30 Mg Capsule PO 30 mg DAILY YONI Administration Ergocalciferol 50,000 unit 10/16/22 03:00 10/16/22 04:01 Ergocalciferol (Vitamin D2) 50,000 Unit Capsule PO 50,000 unit Q7D YONI Administration Famotidine 20 mg 10/16/22 09:00 10/16/22 08:24 Famotidine 20 Mg Tablet PO 20 mg DAILY YONI Administration Sodium Chloride 1,000 mls @ 100 mls/hr 10/16/22 03:00 10/16/22 11:59 Sodium Chloride 0.9% IV 0 mls/hr .Q10H YONI Infusion Sodium Bicarbonate 50 meq/ 1,050 mls @ 100 mls/hr 10/16/22 11:00 10/16/22 11:22 Sodium Chloride IV 10/16/22 23:59 100 mls/hr .[id number] YONI Administration Lactobacillus Acidophilus 1 tab 10/16/22 09:00 10/16/22 08:25 Lactobacillus 1 Tablet PO 1 tab BID YONI Administration Lisinopril 20 mg 10/16/22 09:00 10/16/22 08:24 Lisinopril 10 Mg Tablet PO 20 mg DAILY YONI Administration Oxycodone HCl 10 mg 10/15/22 21:33 10/16/22 04:18 Oxycodone 5 Mg Ir Tab/Cap PO 10 mg Q4H PRN Administration SEVERE PAIN Polyethylene Glycol 17 gm 10/16/22 09:00 10/16/22 08:37 Polyethylene Glycol 3350 Pkt 17 Gm PO Not Given DAILY [facility] Pregabalin 50 mg 10/16/22 09:00 10/16/22 08:26 Pregabalin 50 Mg Capsule PO 50 mg BID YONI Administration Tizanidine HCl 8 mg 10/16/22 09:00 10/16/22 08:25 Tizanidine 4 Mg Tablet PO 8 mg TID YONI Administration Vitamin D 1,000 unit 10/16/22 09:00 10/16/22 08:25 Cholecalciferol (Vitamin D3) 1,000 Unit Tablet PO 1,000 unit DAILY YONI Administration PFSH Acute PFSH: Medical History Acute kidney injury Anxiety and depression Asthma 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 Chronic migraine Chronic musculoskeletal pain Gastroparesis History of hip fracture History of pulmonary embolism Hyperkalemia Hypertension Hyponatremia 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 Transaminitis History of transaminitis, presumed secondary to acetaminophen Surgical History History of back surgery History of left knee surgery History of neck surgery History of right hip replacement History of spinal fusion In 2000 and in 2002 History of surgery on lower extremity (1998) Right leg surgery History of total left hip arthroplasty (12/2015) History of total right hip arthroplasty (03/2016) Port-A-Cath in place Family History Father Clotting disorder Hyperlipidemia Mother Hyperlipidemia Other Cancer Diabetes Hypertension Stroke Denies family history of CAD (coronary artery disease) Dementia Psychiatric illness Chronic kidney disease (CKD) Suicide Anesthesia complication Bleeding disorder Lung disease Social History Smoking and tobacco status: never smoked Second hand smoke exposure: Yes Alcohol intake: current Alcohol intake frequency: holidays/special occasions only Substance/Drug Use: never Vitals/I&O/Wt Last Vital Signs Temp 98.4 F 10/16/22 11:35 Pulse 68 10/16/22 11:35 Resp 18 10/16/22 11:35 BP 106/60 10/16/22 11:35 Pulse Ox 95 10/16/22 11:35 O2 Del Method Room Air 10/16/22 11:35 10/15/22 10/16/22 10/16/22 22:59 06:59 14:59 Intake Total 1050 / 1050 120 / 1170 963.1 / 963.1 Output Total 300 / 300 Balance 1050 / 1050 -180 / 870 963.1 / 963.1 Weight last 48 hrs Weight 36.287 kg Physical Exam Narrative: Patient is awake alert no acute distress HEENT S1-S2 regular rate and rhythm Lungs clear bilaterally per report No edema Data 10/16/22 06:41 10/16/22 06:41 A&P Assessment and plan (1) Acute hyperkalemia: (2) Acute kidney injury: Plan 1. Hyperkalemia associated with severe metabolic acidosis: Noted he has low urine pH of 5and 6 range. 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 -Also patient was on Bactrim and lisinopril which could have contributed to KARRIE and hyperkalemia -Continue bicarbonate drip for now and will also add Bicitra -Would continue Bicitra at discharge. -Low potassium diet requested. -Also has mild hyponatremia likely hypovolemic , unlikely adrenal insufficiency. ordered cortisol level. - Repeat bmp 2. KARRIE : Likely hypovolemic, renal function improving with IV fluids, baseline renal function was normal at 0.5 range. Continue fluids and monitor 3 . metabolic acidosis : continute bicarbonate drip and monitor Patient evaluated using audiovisual cart. Time spent 45 minutes Consult Attestations Medical Necessity Statement: per medicine Coding Level of Care Code Acute Code for Chg Fwd Diagnoses Acute hyperkalemia E87.5 Acute kidney injury N17.9
[2022-10-16 16:44] LABS: Glucose Point of Care 115 mg/dL (70-110)
[2022-10-16] MEDS: sodium chloride 0.9% 1,000 ML 999 ML IV ×2 (16:58→20:19)
[2022-10-16 19:05] LABS: Anion Gap 15.3 (5-19); Blood Urea Nitrogen 36 mg/dL (6-20); Calcium 8.6 mg/dL (8.5-10.5); Carbon Dioxide 17 mmol/L (22-29); Chloride 103 mmol/L (98-107); Glomerular Filtration Rate 34.2 mL/min (90-130); Glucose 84 mg/dL (65-115); Osmolality Calculated 278 mOsm/kg (285-295); Potassium 5.3 mmol/L (3.5-5.1); Sodium 130 mmol/L (136-145)
[2022-10-17] VITALS (216 sets, daily range): BP systolic 71–122; BP diastolic 36–87; PULSE 50–145; RESP 14–32; TEMP 36.6–37.7; O2SAT 81–100
[2022-10-17 03:34] LABS: Basophils % 0.5 %; Eosinophils # 0.1 10^3/uL (0.0-0.8); Eosinophils % 1.2 %; Hematocrit 25.8 % (37.0-47.0); Lymphocytes # 1.7 10^3/uL (0.8-4.8); Lymphocytes % 22.6 %; Mean Corpuscular Hemoglobin 29.2 pg (28.0-34.0); Mean Corpuscular Volume 94.2 fl (81-99); Mean Platelet Volume 9.2 fL (7.4-10.4); Monocytes # 0.8 10^3/uL (0.2-0.9); Monocytes % 11.2 %; Neutrophils # 4.67 10^3/uL (1.8-7.7); Neutrophils % 64.2 %; Nucleated Red Blood Cells % 0 %; Platelet Count 320 10^3/cmm (130-400); Red Blood Count 2.74 10^6/uL (4.1-5.3); Red Cell Distribution Width 18.1 % (12.1-15.1); White Blood Count 7.3 10^3/uL (4.0-10.0)
[2022-10-17 03:51] LABS: Anion Gap 16.8 (5-19); Blood Urea Nitrogen 26 mg/dL (6-20); Calcium 9.2 mg/dL (8.5-10.5); Carbon Dioxide 19 mmol/L (22-29); Chloride 104 mmol/L (98-107); Glomerular Filtration Rate 71.3 mL/min (90-130); Glucose 135 mg/dL (65-115); Osmolality Calculated 287 mOsm/kg (285-295); Potassium 4.8 mmol/L (3.5-5.1); Sodium 135 mmol/L (136-145)
[2022-10-17] MEDS: acetaminophen 500 mg Tablet 650 MG PO ×2 (07:56→21:07)
[2022-10-17] MEDS: oxyCODONE 5 mg IR Tab/Cap 10 MG PO ×3 (07:56→22:15)
[2022-10-17] MEDS: sodium chloride 0.9% 1,000 ML 100 ML IV ×3 (07:57→21:11)
[2022-10-17] MEDS: tizanidine 4 mg Tablet 8 MG PO ×3 (08:00→21:07)
[2022-10-17] MEDS: sodium bicarbonate 650 mg Tablet PO ×3 (08:00→21:07)
[2022-10-17] MEDS: duloxetine 30 mg Capsule PO (08:00)
[2022-10-17] MEDS: polyethylene glycol 3350 Pkt 17 gm PO (08:00)
[2022-10-17] MEDS: famotidine 20 mg Tablet PO (08:00)
[2022-10-17] MEDS: apixaban 5 mg Tablet PO ×2 (08:00→17:34)
[2022-10-17] MEDS: pregabalin 50 mg Capsule PO ×2 (08:00→17:34)
[2022-10-17] MEDS: cetirizine 10 mg Tablet PO (08:00)
[2022-10-17] MEDS: docusate sodium 100 mg Capsule PO ×2 (08:00→17:34)
[2022-10-17] MEDS: lactobacillus 1 Tablet 1 TAB PO ×2 (08:00→17:34)
[2022-10-17] MEDS: cholecalciferol (vitamin D3) 1,000 unit Tablet 1000 UNIT PO (08:00)
--- NOTE | 2022-10-17 08:23 | ECG_ITS ---
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 Measurements Intervals [place] Rate: 135 P: 50 OK: 134 QRS: 33 QRSD: 87 T: 40 QT: 331 QTc: 497 Interpretive Statements SINUS TACHYCARDIA NONSPECIFIC T-WAVE ABNORMALITY Compared to ECG 10/15/2022 20:34:40 T-wave abnormality now present Sinus rhythm no longer present Electronically Signed On 10-17-2022 13:20:21 CDT by Santos Piedra M.D. [email or web address]
[2022-10-17] MEDS: dilTIAZem 5 mg/mL SDV 5 mL IVP (08:24)
[2022-10-17] MEDS: doxycycline 100 mg Tablet PO ×2 (09:03→17:34)
--- NOTE | 2022-10-17 11:30 | PM.PN ---
Subjective Subjective: This morning patient was tachycardic sinus tachycardia EKG was done which showed heart rate of 140 with sinus tach With carotid massage heart rate came down to 135 she was given a low-dose of Cardizem IV push which improved her heart rate blood pressure did not reduce significantly Patient is not experiencing any chest pain or shortness of breath No active palpitations, patient was eating breakfast Sodium 135 Potassium 4.8 Bicarb 19 Vitals/I&O/Wt Last Vital Signs Temp 99.9 F H 10/17/22 07:30 Pulse 103 H 10/17/22 08:37 Resp 20 H 10/17/22 08:37 BP 111/55 10/17/22 08:30 Pulse Ox 93 10/17/22 08:37 O2 Del Method Room Air 10/17/22 08:37 O2 Flow Rate 2 10/17/22 07:30 10/16/22 10/17/22 10/17/22 22:59 06:59 14:59 Intake Total 2120 / 3083.1 1050 / 4133.1 1403.333 / 1403.333 Output Total 850 / 850 700 / 700 Balance 2120 / 3083.1 200 / 3283.1 703.333 / 703.333 Weight last 48 hrs Weight 36.287 kg Physical Exam Narrative: Patient is asymptomatic No chest pain or shortness of breath Current heart rate 87 Normal blood pressure Eating breakfast GCS 15 No abdominal pain No new focal deficit Complaining of mild back pain Data 10/17/22 03:23 10/17/22 03:23 A&P Assessment and plan (1) Acute kidney injury: (2) Acute hyponatremia: (3) Acute hyperkalemia: (4) Reactive depression: (5) Hyperkalemia: (6) Mucopolysaccharidosis 4: (7) ADD (attention deficit disorder): (8) Renal tubular acidosis, type 4: Plan Sinus tachycardia: EKG showed sinus tach heart rate 140s he was given Cardizem Patient was not on metoprolol she had that she was taking at the long term I will restart her Metroprolol tartrate Most likely was rebound tachycardia I do not suspect PE as she is already on Eliquis Low back pain continue oxycodone Hyperkalemia hyponatremia and KARRIE: Improved Concern for RTA Continue bicarb p.o. regimen RTA type IV Patient nephro recommendations Plan to discharge her tomorrow back to her nursing She was transferred to ICU because of hypotension related to polypharmacy Continue antidepressants and methylphenidate for ADD I would avoid Bactrim or lisinopril at this Continue Eliquis for her DVT/PE I am giving her doxycycline because of her recent back surgery, noted low-grade fever Attestations Medical Necessity Statement*: Discharge tomorrow back to long term Diagnoses Acute kidney injury N17.9 Acute hyponatremia E87.1 Acute hyperkalemia E87.5 Reactive depression F32.9 Hyperkalemia E87.5 Mucopolysaccharidosis 4 E76.219 ADD (attention deficit disorder) F98.8 Renal tubular acidosis, type 4 N25.89
--- NOTE | 2022-10-17 13:07 | PM.PN ---
Subjective Subjective: transferred to ICU due to hypotension and tachycardia Medications: Reviewed: Yes Vitals/I&O/Wt Last Vital Signs Temp 98.9 F 10/17/22 12:10 Pulse 71 10/17/22 12:20 Resp 21 H 10/17/22 12:20 BP 85/50 10/17/22 12:20 Pulse Ox 93 10/17/22 12:20 O2 Del Method Nasal Cannula 10/17/22 12:10 O2 Flow Rate 2 10/17/22 12:10 10/16/22 10/17/22 10/17/22 22:59 06:59 14:59 Intake Total 2120 / 3083.1 1050 / 4133.1 1523.333 / 1523.333 Output Total 850 / 850 700 / 700 Balance 2120 / 3083.1 200 / 3283.1 823.333 / 823.333 Weight last 48 hrs Weight 36.287 kg Physical Exam Narrative: Patient is awake alert no acute distress HEENT S1-S2 regular rate and rhythm Lungs clear bilaterally per report No edema Data 10/17/22 03:23 10/17/22 03:23 A&P Assessment and plan (1) Acute hyperkalemia: (2) Acute kidney injury: Plan 1. Hyperkalemia associated with severe metabolic acidosis: Noted he has low urine pH of 5and 6 range. 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 -Also patient was on Bactrim and lisinopril which could have contributed to KARRIE and hyperkalemia -s/p bicarbonate drip for now and will also add Bicitra -Would continue Bicitra at discharge. -Low potassium diet requested. -Also has mild hyponatremia likely hypovolemic , unlikely adrenal insufficiency. ordered cortisol level. 2. KARRIE : Likely hypovolemic, renal function improving with IV fluids, baseline renal function was normal at 0.5 range. Continue fluids and monitor 3 . metabolic acidosis : s/p bicarbonate drip and monitor 4. Tachycardia , improved , s/p cardiazem Patient evaluated using audiovisual cart. Time spent 45 minutes Attestations Medical Necessity Statement*: per medicine Coding Level of Care Code Acute Code for [facility] Fwd Diagnoses Acute hyperkalemia E87.5 Acute kidney injury N17.9
[2022-10-17] MEDS: citric acid-sodium citrate 30 mL UDC PO (13:31)
--- NOTE | 2022-10-17 18:16 | PC.NURSE ---
Addendum entered by Melanie Kenney RN 10/17/22 18:18: Physician notified of BP and HR throughout shift. Original Note: Patient AAOx4, resting throughout shift, Vitals differ throughout shift please see charting. Minimal c/o pain relieved by oral pain medication per MAR. Good UOP, tolerating diet with little appetite. Room clean and clutter free with call light within reach. No needs at this time.
[2022-10-18] VITALS (22 sets, daily range): BP systolic 102–151; BP diastolic 63–104; PULSE 65–111; RESP 16–25; TEMP 37; O2SAT 88–99
[2022-10-18] MEDS: oxyCODONE 5 mg IR Tab/Cap 10 MG PO ×3 (03:32→12:43)
[2022-10-18 04:04] LABS: Anion Gap 9.7 (5-19); Blood Urea Nitrogen 17 mg/dL (6-20); Calcium 8.9 mg/dL (8.5-10.5); Carbon Dioxide 26 mmol/L (22-29); Chloride 106 mmol/L (98-107); Glomerular Filtration Rate 140.4 mL/min (90-130); Glucose 125 mg/dL (65-115); Magnesium 1.3 mg/dL (1.7-2.3); Osmolality Calculated 289 mOsm/kg (285-295); Potassium 3.7 mmol/L (3.5-5.1); Sodium 138 mmol/L (136-145)
[2022-10-18 05:07] LABS: Basophils % 0.4 %; Eosinophils # 0.2 10^3/uL (0.0-0.8); Hematocrit 23.9 % (37.0-47.0); Hemoglobin 7.3 g/dL (11.5-15.3); Lymphocytes # 1.7 10^3/uL (0.8-4.8); Lymphocytes % 22.9 %; Mean Corpuscular HGB Conc 30.5 g/dL (30.0-36.0); Mean Corpuscular Hemoglobin 28.7 pg (28.0-34.0); Mean Corpuscular Volume 94.1 fl (81-99); Mean Platelet Volume 9.8 fL (7.4-10.4); Monocytes # 0.7 10^3/uL (0.2-0.9); Monocytes % 9.3 %; Neutrophils # 4.85 10^3/uL (1.8-7.7); Neutrophils % 64.1 %; Nucleated Red Blood Cells % 0 %; Platelet Count 328 10^3/cmm (130-400); Red Blood Count 2.54 10^6/uL (4.1-5.3); Red Cell Distribution Width 17.8 % (12.1-15.1); White Blood Count 7.6 10^3/uL (4.0-10.0)
[2022-10-18] MEDS: lactobacillus 1 Tablet 1 TAB PO (08:21)
[2022-10-18] MEDS: sodium bicarbonate 650 mg Tablet PO (08:21)
[2022-10-18] MEDS: cetirizine 10 mg Tablet PO (08:21)
[2022-10-18] MEDS: apixaban 5 mg Tablet PO (08:21)
[2022-10-18] MEDS: doxycycline 100 mg Tablet PO (08:22)
[2022-10-18] MEDS: famotidine 20 mg Tablet PO (08:22)
[2022-10-18] MEDS: tizanidine 4 mg Tablet 8 MG PO (08:22)
[2022-10-18] MEDS: duloxetine 30 mg Capsule PO (08:22)
[2022-10-18] MEDS: cholecalciferol (vitamin D3) 1,000 unit Tablet 1000 UNIT PO (08:22)
[2022-10-18] MEDS: docusate sodium 100 mg Capsule PO (08:22)
[2022-10-18] MEDS: pregabalin 50 mg Capsule PO (08:22)
[2022-10-18] MEDS: polyethylene glycol 3350 Pkt 17 gm PO (08:24)
[2022-10-18] MEDS: metoprolol tartrate 25 mg Tablet PO (08:29)
[2022-10-18 11:29] LABS: SARS Covid-2 Antigen negative (Negative)
--- NOTE | 2022-10-18 11:51 | P.DS_ITS ---
Discharge Providers Date of Admission: 10/17/22 07:05 Date of Discharge: October 18, 2022 Attending Provider at Admission: Meeta Carlson MD Attending Provider at Discharge: Betty Issa MD Primary Care Provider: Francine Singh Diagnoses at Discharge Discharge Diagnosis (1) Acute hyperkalemia: Status: Acute (2) Acute kidney injury: Status: Acute Reason for Visit Reason for Visit: K AT 7.1 Hospital Course Hospital Course 36-year female who presented to the hospital for abnormal labs such as hyponatremia, hyperkalemia and acidosis, patient received insulin, dextrose, Kayexalate and bicarb IV push along bicarb tablets which improved her acidosis, my concern was related to renal tubular acidosis type IV, I consulted service promoter salesperson to had high suspicion for RTA as well and recommended continuation of oral bicarb tablets at the time of discharge, I have removed Bactrim, lisinopril from her medications that would cause hyperkalemia as well. Her sodium, potassium and KARRIE improved with fluid hydration. Please note she was transferred to ICU for hypotension responded very well to fluid hydration and suffered from vascular congestion and required 1 to 2 L of oxygen. After fluid hydration she required IV diuresis as well for 2 days. Her blood pressure and heart rate is labile she becomes tachycardic if we stop her metoprolol she is already on Eliquis my suspicion for PE is low at this point. With addition of metoprolol heart rate and blood pressure improved. Patient tends to become dehydrated, and on top of that she takes multiple medications including antipsychotic anxiolytics and Ritalin I do believe she is suffering from polypharmacy I would avoid adding a new medication. I will give her Lasix to be used on as-needed basis. Physical Exam Narrative: Heart rate 72 blood pressure 111/76 mmHg after getting metoprolol Currently on 1 L nasal cannula 93% Awake and alert S1, S2 No active distress No chest pain Discharge Data Studies Completed and Pending Completed Studies During Hospitalization Category Date Time Status XR chest 1V portable [id number] Stat Exams 10/15/22 19:10 Completed Radiology Impressions Chest X-Ray 10/15/22 19:10 IMPRESSION: Suspect mild right perihilar edema versus pneumonia. Laboratory Results WBC 7.6 10^3/uL (4.0-10.0) 10/18/22 02:37 RBC 2.54 10^6/uL (4.1-5.3) L 10/18/22 02:37 Hgb 7.3 g/dL (11.5-15.3) L 10/18/22 02:37 Hct 23.9 % (37.0-47.0) L 10/18/22 02:37 MCV 94.1 fl (81-99) 10/18/22 02:37 MCH 28.7 pg (28.0-34.0) 10/18/22 02:37 MCHC 30.5 g/dL (30.0-36.0) 10/18/22 02:37 RDW 17.8 % (12.1-15.1) H 10/18/22 02:37 Plt Count 328 10^3/cmm (130-400) 10/18/22 02:37 MPV 9.8 fL (7.4-10.4) 10/18/22 02:37 Neut % (Auto) 64.1 % 10/18/22 02:37 Lymph % (Auto) 22.9 % 10/18/22 02:37 [place] % (Auto) 9.3 % 10/18/22 02:37 Eos % (Auto) 3.0 % 10/18/22 02:37 Baso % (Auto) 0.4 % 10/18/22 02:37 Neut # (Auto) 4.85 10^3/uL (1.8-7.7) 10/18/22 02:37 Lymph # (Auto) 1.7 10^3/uL (0.8-4.8) 10/18/22 02:37 [place] # (Auto) 0.7 10^3/uL (0.2-0.9) 10/18/22 02:37 Eos # (Auto) 0.2 10^3/uL (0.0-0.8) 10/18/22 02:37 Baso # (Auto) 0.0 10^3/uL (0.0-0.1) 10/18/22 02:37 Nucleated RBC % (auto) 0 % 10/18/22 02:37 Nucleated RBCs # 0.0 /100WBC 10/18/22 02:37 PT 23.10 SECONDS (12.1-14.9) H 10/15/22 19:30 INR 1.97 (0.8-1.2) H 10/15/22 19:30 Sodium 138 mmol/L (136-145) 10/18/22 02:37 Potassium 3.7 mmol/L (3.5-5.1) 10/18/22 02:37 Chloride 106 mmol/L (98-107) 10/18/22 02:37 Carbon Dioxide 26 mmol/L (22-29) 10/18/22 02:37 Anion Gap 9.7 (5-19) 10/18/22 02:37 BUN 17 mg/dL (6-20) 10/18/22 02:37 Creatinine 0.5 mg/dL (0.5-0.9) 10/18/22 02:37 GFR Calculation 140.4 mL/min (90-130) H 10/18/22 02:37 Glucose 125 mg/dL (65-115) H 10/18/22 02:37 POC Glucose 115 mg/dL (70-110) H 10/16/22 16:36 Calculated Osmolality 289 mOsm/kg (285-295) 10/18/22 02:37 Calcium 8.9 mg/dL (8.5-10.5) 10/18/22 02:37 Magnesium 1.3 mg/dL (1.7-2.3) L 10/18/22 02:37 Total Bilirubin 0.2 mg/dL (0.15-1.2) 10/16/22 06:41 AST 13 U/L (0-32) 10/16/22 06:41 ALT 11 U/L (0-33) 10/16/22 06:41 Alkaline Phosphatase 145 U/L (35-105) H 10/16/22 06:41 Total Protein 7.6 g/dL (6.6-8.7) 10/16/22 06:41 Albumin 3.5 g/dL (3.5-5.2) 10/16/22 06:41 Globulin 4.1 g/dL (1.3-4.6) 10/16/22 06:41 SARS-CoV-2 Ag (Rapid) negative (Negative) 10/18/22 11:00 Vitals Last Vital Signs Temp 98.3 F 10/17/22 22:30 Pulse 111 H 10/18/22 09:00 Resp 19 H 10/18/22 09:00 BP 142/102 10/18/22 09:00 Pulse Ox 90 10/18/22 09:00 O2 Del Method Room Air 10/18/22 09:00 O2 Flow Rate 1.5 10/18/22 02:30 Discharge Plan Discharge Patient Disposition: Xfer SNF Condition: Stable Prescriptions: New sodium bicarbonate 650 mg Tablet 650 mg PO DAILY Qty: 60 2RF doxycycline monohydrate 100 mg Tablet 100 mg PO BID Qty: 6 0RF hydralazine 25 mg tablet 25 mg PO TID Qty: 90 4RF furosemide [Lasix] 20 mg tablet 20 mg PO DAILY PRN (Reason: Shortness of breath, weight gain more than 3 pound) Qty: 10 0RF Rx Instructions: On as-needed basis depending on shortness of breath fluid congestion Continued metoprolol tartrate 25 mg tablet 25 mg PO BID bisacodyl [Dulcolax (bisacodyl)] 10 mg suppository 10 mg TN QPM PRN (Reason: Constipation) famotidine 20 mg tablet 20 mg PO DAILY sennosides [senna] 8.6 mg Tablet 8.6 mg PO DAILY PRN (Reason: Constipation) albuterol sulfate 2.5 mg /3 mL (0.083 %) Solution For Nebulization 2.5 mg inhalation Q2H PRN (Reason: Shortness Of Breath) polyethylene glycol 3350 [Miralax] 17 gram Powder In Packet 17 g PO DAILY cetirizine [Zyrtec] 10 mg Tablet 10 mg PO DAILY tizanidine 4 mg Tablet 8 mg PO TID ondansetron HCl 8 mg Tablet 8 mg PO Q6H PRN (Reason: Nausea And Vomiting) lorazepam [Ativan] 0.5 mg Tablet 0.5 mg PO TID PRN (Reason: Anxiety) calcium carbonate [Tums] 200 mg calcium (500 mg) Tablet,Chewable 400 mg PO TID PRN (Reason: Heartburn) docusate sodium [Colace] 100 mg Capsule 100 mg PO BID ergocalciferol (vitamin D2) [Vitamin D2] 1,250 mcg (50,000 unit) Capsule 50,000 unit PO Q7D Culturelle 10 billion cell Capsule 1 cap PO BID erythromycin 250 mg capsule,delayed release(DR/EC) 250 mg PO QID cholecalciferol (vitamin D3) [Vitamin D3] 10 mcg (400 unit) Capsule 800 unit PO DAILY duloxetine [Cymbalta] 30 mg Capsule,Delayed Release(Dr/Ec) 30 mg PO DAILY levalbuterol tartrate [Xopenex HFA] 45 mcg/actuation Hfa Aerosol Inhaler 2 puff INHALATION QID PRN (Reason: Shortness Of Breath) pregabalin [Lyrica] 50 mg Capsule 50 mg PO BID Chloraseptic Sore Throat 6-10 mg Lozenge 1 haylie PO Q4H PRN (Reason: Sore Throat) oxycodone 10 mg Tablet 10 mg PO Q4H PRN (Reason: Pain) Eliquis 5 mg Tablet 5 mg PO BID Movantik 25 mg Tablet 25 mg PO QAM Rx Instructions: must be taken on empty stomach; no food 1 hr after or 2-3 hrs before dose hydrocortisone 0.5 % Cream 1 applic TOPICAL BID PRN (Reason: Rash) Rx Instructions: to lower back and sides as needed for rash sodium chloride 0.9 % (flush) [Normal Saline Flush] Syringe See Rx Instructions .ROUTE .COMPLEX Rx Instructions: 10 ml iv every shift to picc line in left arm for maint patency amlodipine 10 mg tablet 10 mg PO DAILY Qty: 30 0RF methylphenidate HCl 27 mg tablet extended release 24hr 27 mg PO DAILY Tylenol 325 mg Tablet 650 mg PO Q6H PRN (Reason: pain/fever) Eye Drops (with povidone) 0.05-0.1-1-1 % Drops 2 drp ophthalmic (eye) Q4H PRN (Reason: itchy red eyes) Botox 100 unit recon soln See Rx Instructions .ROUTE .COMPLEX Rx Instructions: to be administered at 's office every 3 months (next appt October 25) Discontinued sulfamethoxazole-trimethoprim [Bactrim DS] 800-160 mg Tablet 2 tab PO BID lisinopril 10 mg Tablet 20 mg PO DAILY Qty: 30 0RF Discharge Orders: Discharge Order (Routine); Ordered 10/18/22 Ordered By: Betty Issa Referrals: [facility] [Outside] Francine Singh FNP [Primary Care Provider] - Patient Instructions: Opioid Safety Discharge Attestations Time Spent in Discharge Care*: greater than 30 min Status at Discharge: Cognitive status at discharge: cognitively intact , Behavioral status at discharge: cooperative , Quality Metrics Clinical Quality Measures [ No reported AMI, CVA or VTE this stay] Coding Level of Care Code Acute Code for Chg Fwd Diagnoses Acute hyperkalemia E87.5 Acute kidney injury N17.9
[2022-10-18] MEDS: FUROsemide 10 mg/mL SDV 2mL 20 MG IVP (12:17)
[2022-10-18 12:32] LABS: Hematocrit 26.1 % (37.0-47.0)
--- NOTE | 2022-10-18 13:52 | PC.NURSE ---
Report called to Kate RIVERA. Patient educated on new medications for home use, and importance of activity as tolerated. Patient had no questions after reviewing discharge packet. Family notified of transfer back to detention. [facility] received patient via wheelchair to transport vehicle.
--- NOTE | 2022-10-18 14:01 | PM.PN ---
Subjective Subjective: no acute issues Medications: Reviewed: Yes Vitals/I&O/Wt Last Vital Signs Temp 98.6 F 10/18/22 12:00 Pulse 74 10/18/22 12:00 Resp 19 H 10/18/22 12:43 BP 112/65 10/18/22 12:00 Pulse Ox 92 10/18/22 13:21 O2 Del Method Nasal Cannula 10/18/22 12:00 O2 Flow Rate 1 10/18/22 12:00 10/17/22 10/18/22 10/18/22 22:59 06:59 14:59 Intake Total 2440 / 3963.333 1600 / 1600 Output Total 600 / 1300 600 / 1900 500 / 500 Balance 1840 / 2663.333 -600 / 2063.333 1100 / 1100 Physical Exam Narrative: Patient is awake alert no acute distress HEENT S1-S2 regular rate and rhythm Lungs clear bilaterally per report No edema Data 10/18/22 12:26 10/18/22 02:37 A&P Assessment and plan (1) Acute hyperkalemia: (2) Acute kidney injury: Plan 1. Hyperkalemia associated with severe metabolic acidosis: Noted he has low urine pH of 5and 6 range. 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 -Also patient was on Bactrim and lisinopril which could have contributed to KARRIE and hyperkalemia -s/p bicarbonate drip for now and will also add Bicitra -Would continue Bicitra at discharge. -Low potassium diet requested. -Also has mild hyponatremia likely hypovolemic , unlikely adrenal insufficiency. 2. KARRIE : Likely hypovolemic, renal function improving with IV fluids, Cr back to baseline 3 . metabolic acidosis : s/p bicarbonate drip and monitor , improved 4. Tachycardia , improved , s/p cardiazem Patient evaluated using audiovisual cart. Time spent 45 minutes Attestations Medical Necessity Statement*: per [facility] Coding Level of Care Code Acute Code for Chg Fwd Diagnoses Acute hyperkalemia E87.5 Acute kidney injury N17.9
== END 2022-10-18 13:45 | disposition skilled nursing facility (03) | DRG 683 ==
LOC: ER 20:18 → MEDSURG 20:36 → ICU 10-16 19:22
PROVIDERS: Hospitalist; Admitting Provider Internal Medicine; Emergency Provider Emergency Medicine; PCP Nurse Practitioner Family; Visit Provider Internal Medicine
DX: N17.9 Acute kidney failure, unspecified (principal); E76.219 Morquio mucopolysaccharidoses, unspecified; E87.1 Hypo-osmolality and hyponatremia; F41.8 Other specified anxiety disorders; J45.909 Unspecified asthma, uncomplicated; I10 Essential (primary) hypertension; Z98.1 Arthrodesis status; D63.8 Anemia in other chronic diseases classified elsewhere; G43.709 Chronic migraine without aura, not intractable, without status migrainosus; F98.8 Other specified behavioral and emotional disorders with onset usually occurring in childhood and adolescence; G89.29 Other chronic pain; M54.50 Low back pain, unspecified; M79.18 Myalgia, other site; N25.89 Other disorders resulting from impaired renal tubular function; E86.0 Dehydration; E87.5 Hyperkalemia; R00.0 Tachycardia, unspecified; I95.9 Hypotension, unspecified; R50.9 Fever, unspecified; E86.1 Hypovolemia; Z79.891 Long term (current) use of opiate analgesic; E87.6 Hypokalemia; E87.20 Acidosis, unspecified; Z79.01 Long term (current) use of anticoagulants
CPT/HCPCS: 12345; 36415; 36416; 36569; 36592; 71045; 80048; 80053; 82962; 83735; 85014; 85018; 85025; 85610; 87426; 93005; 94760; 96374; 96376; 99221; 99285; G0378; J1815; J1940; J3490; J7030

== ENCOUNTER 2022-10-21 16:43 | Emergency (ER) | payer MEDICARE, MEDICAID, SELFPAY ==
--- NOTE | 2022-10-21 16:49 | W.ED.AMS ---
Documented by User: Dequan Fonseca MD 10/31/22 05:21 HPI - Altered Mental Status General: Chief Complaint: Altered Mental Status Stated Complaint: AMS Time Seen by Provider: 10/21/22 16:48 History of Present Illness: Ms. Barros is a 36-year-old lady with complex past medical history including multiple recent hospitalizations for KARRIE and hyperkalemia presenting the emergency department for generalized illness and concern over possible hallucinations. She reports may be feeling a little bit off earlier today however this afternoon symptoms started. She has had episodes of feeling confused and like she is seeing objects move that were not there. She reports that this feels similar to prior. The intensity of symptoms is moderate. Course has persisted. She is currently on antibiotics for postoperative infection. No other specific changes in health, exacerbating, or alleviating factors identified. Onset (ago): hour(s) Consistency of symptoms: Waxing and Waning 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, type 4 Transaminitis History of transaminitis, presumed secondary to acetaminophen Surgical History History of back surgery History of left knee surgery History of neck surgery History of right hip replacement History of spinal fusion In 2000 and in 2002 History of surgery on lower extremity (1998) Right leg surgery History of total left hip arthroplasty (12/2015) History of total right hip arthroplasty (03/2016) Port-A-Cath in place Family History Father Clotting disorder Hyperlipidemia Mother Hyperlipidemia Other Cancer Diabetes Hypertension Stroke Denies family history of CAD (coronary artery disease) Dementia Psychiatric illness Chronic kidney disease (CKD) Suicide Anesthesia complication Bleeding disorder Lung disease Social History Smoking and tobacco status: never smoked Second hand smoke exposure: Yes Alcohol intake: current Alcohol intake frequency: holidays/special occasions only Substance/Drug Use: never Physical Exam Const: COMMON NORMALS: alert GENERAL APPEARANCE: cooperative and well developed HENMT: COMMON NORMALS: normocephalic and atraumatic HEAD & SCALP: normocephalic and atraumatic Eye: COMMON NORMALS: conjunctivae normal CONJUNCTIVA: Yes conjunctivae normal SCLERA: sclerae normal Neck/C-Spine: COMMON NORMALS: supple GENERAL: Yes trachea midline Resp: COMMON NORMALS: clear to auscultation bilaterally EFFORT & INSPECTION: Yes able to speak in complete sentences AUSCULTATION: clear to auscultation bilaterally Cardio: COMMON NORMALS: regular rate and regular rhythm RATE: regular rate RHYTHM: regular rhythm GI: COMMON NORMALS: Soft to palpation PALPATION: Yes Soft to palpation and No Tenderness to palpation present (GI) Extremity: NARRATIVE EXTREMITY EXAM: Baseline abnormalities secondary to underlying genetic condition. Left arm PICC line site appears normal. GENERAL: Yes normal exam except as noted and No edema Neuro: COMMON NORMALS: moves all extremities SENSORIUM/ORIENTATION: Yes alert and No Orientation impaired Psych: COMMON NORMALS: mental status grossly normal and Normal thought process present THOUGHT PROCESS: Normal thought process present Course Vital Signs: Vital signs: Vital Signs Temperature 98.2 F 10/22/22 00:06 Pulse Rate 90 10/22/22 00:06 Respiratory Rate 16 10/22/22 00:06 Blood Pressure 106/66 10/22/22 00:06 Pulse Oximetry 100 10/22/22 00:06 Oxygen Delivery Me thod Room Air 10/21/22 18:41 MDM - Altered Mental Status Medical Decision Making 36-year-old lady resenting with mental status change. No focal neurologic deficits appreciated on my exam. Patient appears oriented and provides good clinical history. She does report similar with prior electrolyte derangements. Laboratory studies ordered. Fluid bolus ordered. Handed off to Dr. Patel pending completion of ED evaluation and disposition. Medical Records I reviewed the patient's medical records. Lab Data I reviewed the patient's lab results. 10/21/22 17:28 10/21/22 17:28 Laboratory Results WBC 8.5 10^3/uL (4.0-10.0) 10/21/22: RBC 2.98 10^6/uL (4.1-5.3) L 10/21/22: Hgb 8.5 g/dL (11.5-15.3) L 10/21/22: Hct 27.0 % (37.0-47.0) L 10/21/22: MCV 90.6 fl (81-99) 10/21/22: MCH 28.5 pg (28.0-34.0) 10/21/22: MCHC 31.5 g/dL (30.0-36.0) 10/21/22 RDW 16.8 % (12.1-15.1) H 10/21/22 Plt Count 464 10^3/cmm (130-400) H 10/21/22: MPV 9.2 fL (7.4-10.4) 10/21/22: Neut % (Auto) 68.8 % 10/21/22: Lymph % (Auto) 20.6 % 10/21/22: [place] % (Auto) 9.1 % 10/21/22: Eos % (Auto) 0.9 % 10/21/22 Baso % (Auto) 0.5 % 10/21/22 Neut # (Auto) 5.84 10^3/uL (1.8-7.7) 10/21/22: Lymph # (Auto) 1.8 10^3/uL (0.8-4.8) 10/21/22: [place] # (Auto) 0.8 10^3/uL (0.2-0.9) 10/21/22: Eos # (Auto) 0.1 10^3/uL (0.0-0.8) 10/21/22: Baso # (Auto) 0.0 10^3/uL (0.0-0.1) 10/21/22: Nucleated RBC % (auto) 0 % 10/21/22: Nucleated RBCs # 0.0 /100WBC 10/21/22:28 Sodium 135 mmol/L (136-145) L 10/21/22 17:28 Potassium 3.2 mmol/L (3.5-5.1) L 10/21/22 17:28 Chloride 98 mmol/L (98-107) 10/21/22 17:28 Carbon Dioxide 24 mmol/L (22-29) 10/21/22 17:28 Anion Gap 16.2 (5-19) 10/21/22 17:28 BUN 6 mg/dL (6-20) 10/21/22 17:28 Creatinine 0.4 mg/dL (0.5-0.9) L 10/21/22 17:28 GFR Calculation 181.6 mL/min (90-130) H 10/21/22 17:28 Glucose 94 mg/dL (65-115) 10/21/22 17:28 Calculated Osmolality 277 mOsm/kg (285-295) L 10/21/22 17:28 Calcium 9.1 mg/dL (8.5-10.5) 10/21/22 17:28 TSH 1.71 uIU/mL (0.27-4.20) 10/21/22 17:28 Urine Color Yellow (Yellow) 10/21/22 19:19 Urine Appearance Cloudy (CLEAR) A 10/21/22 19:19 Urine pH 8 (5-7) H 10/21/22 19:19 Ur Specific [place] 1.010 (1.005-1.030) 10/21/22 19:19 Urine Protein Neg (Negative) 10/21/22 19:19 Urine Glucose (UA) Norm (Normal) 10/21/22 19:19 Urine Ketones 1+ (Negative) H 10/21/22 19:19 Urine Blood Neg (Negative) 10/21/22 19:19 Urine Nitrate Negative (Negative) 10/21/22 19:19 Urine Bilirubin Neg (Negative) 10/21/22 19:19 Urine Urobilinogen 1 mg/dL (Negative) H 10/21/22 19:19 Ur Leukocyte Esterase Trace (Negative) H 10/21/22 19:19 Urine RBC 0-4 /hpf (0-2) H 10/21/22 19:19 Urine WBC 5-10 /hpf (0-5) H 10/21/22 19:19 Ur Squamous Epith Cells 5-10 /hpf (0-5) H 10/21/22 19:19 Amorphous Sediment 1+ /hpf 10/21/22 19:19 Urine Bacteria 2+ /hpf (NONE) H 10/21/22 19:19 Discharge Plan Discharge Patient Disposition: Home Clinical Impression: Altered mental status, Hypokalemia Condition: Stable Prescriptions: No Action metoprolol tartrate 25 mg tablet 25 mg PO BID bisacodyl [Dulcolax (bisacodyl)] 10 mg suppository 10 mg AK QPM PRN (Reason: Constipation) famotidine 20 mg tablet 20 mg PO DAILY sennosides [senna] 8.6 mg Tablet 8.6 mg PO DAILY PRN (Reason: Constipation) albuterol sulfate 2.5 mg /3 mL (0.083 %) Solution For Nebulization 2.5 mg inhalation Q2H PRN (Reason: Shortness Of Breath) polyethylene glycol 3350 [Miralax] 17 gram Powder In Packet 17 g PO DAILY cetirizine [Zyrtec] 10 mg Tablet 10 mg PO DAILY tizanidine 4 mg Tablet 8 mg PO TID ondansetron HCl 8 mg Tablet 8 mg PO Q6H PRN (Reason: Nausea And Vomiting) lorazepam [Ativan] 0.5 mg Tablet 0.5 mg PO TID PRN (Reason: Anxiety) calcium carbonate [Tums] 200 mg calcium (500 mg) Tablet,Chewable 400 mg PO TID PRN (Reason: Heartburn) docusate sodium [Colace] 100 mg Capsule 100 mg PO BID ergocalciferol (vitamin D2) [Vitamin D2] 1,250 mcg (50,000 unit) Capsule 50,000 unit PO Q7D Culturelle 10 billion cell Capsule 1 cap PO BID erythromycin 250 mg capsule,delayed release(DR/EC) 250 mg PO QID cholecalciferol (vitamin D3) [Vitamin D3] 10 mcg (400 unit) Capsule 800 unit PO DAILY duloxetine [Cymbalta] 30 mg Capsule,Delayed Release(Dr/Ec) 30 mg PO DAILY levalbuterol tartrate [Xopenex HFA] 45 mcg/actuation Hfa Aerosol Inhaler 2 puff INHALATION QID PRN (Reason: Shortness Of Breath) pregabalin [Lyrica] 50 mg Capsule 50 mg PO BID Chloraseptic Sore Throat 6-10 mg Lozenge 1 haylie PO Q4H PRN (Reason: Sore Throat) oxycodone 10 mg Tablet 10 mg PO Q4H PRN (Reason: Pain) Eliquis 5 mg Tablet 5 mg PO BID Movantik 25 mg Tablet 25 mg PO QAM Rx Instructions: must be taken on empty stomach; no food 1 hr after or 2-3 hrs before dose hydrocortisone 0.5 % Cream 1 applic TOPICAL BID PRN (Reason: Rash) Rx Instructions: to lower back and sides as needed for rash sodium chloride 0.9 % (flush) [Normal Saline Flush] Syringe See Rx Instructions .ROUTE .COMPLEX Rx Instructions: 10 ml iv every shift to picc line in left arm for maint patency amlodipine 10 mg tablet 10 mg PO DAILY Qty: 30 0RF methylphenidate HCl 27 mg tablet extended release 24hr 27 mg PO DAILY Tylenol 325 mg Tablet 650 mg PO Q6H PRN (Reason: pain/fever) Eye Drops (with povidone) 0.05-0.1-1-1 % Drops 2 drp ophthalmic (eye) Q4H PRN (Reason: itchy red eyes) Botox 100 unit recon soln See Rx Instructions .ROUTE .COMPLEX Rx Instructions: to be administered at 's office every 3 months (next appt October 25) doxycycline monohydrate 100 mg Tablet 100 mg PO BID Qty: 6 0RF sodium bicarbonate 650 mg Tablet 650 mg PO DAILY Qty: 60 2RF hydralazine 25 mg tablet 25 mg PO TID Qty: 90 4RF Lasix 20 mg tablet 20 mg PO DAILY PRN (Reason: Shortness of breath, weight gain more than 3 pound) Qty: 10 0RF Rx Instructions: On as-needed basis depending on shortness of breath fluid congestion Discharge Orders: Discharge ED (Routine); Ordered 10/21/22 Ordered By: Boyd Patel Referrals: Francine Singh FNP [Primary Care Provider] - 1-3 days Patient Instructions: Hypokalemia (ED), Altered Mental Status (ED) Activity Restrictions/Additional Instructions: Your work-up in the emergency department did not reveal a specific cause of mild altered mental status changes. Your potassium was mildly low, and was replaced. This should be checked again in 48 to 72 hours. Return for worsening mental status, weakness, problems with vision or speech, other concerning symptoms. Coding Level of Care Code ED It Manager for Chg Fwd Documented by User: Boyd Patel DO 10/21/22 20:52 HPI - Altered Mental Status General: Chief Complaint: Altered Mental Status Stated Complaint: AMS Time Seen by Provider: 10/21/22 16:48 PFSH ED PFSH: Medical History Acute hyperkalemia Acute hyponatremia Acute kidney injury Acute kidney injury ADD (attention deficit disorder) Anemia Anxiety and depression Asthma 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 Chronic migraine Chronic migraine without aura, intractable, with status migrainosus Chronic musculoskeletal pain Gastroparesis History of hip fracture History of pulmonary embolism Hyperkalemia Hyperkalemia Hypertension Hyponatremia 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, type 4 Transaminitis History of transaminitis, presumed secondary to acetaminophen Surgical History History of back surgery History of left knee surgery History of neck surgery History of right hip replacement History of spinal fusion In 2000 and in 2002 History of surgery on lower extremity (1998) Right leg surgery History of total left hip arthroplasty (12/2015) History of total right hip arthroplasty (03/2016) Port-A-Cath in place Family History Father Clotting disorder Hyperlipidemia Mother Hyperlipidemia Other Cancer Diabetes Hypertension Stroke Denies family history of CAD (coronary artery disease) Dementia Psychiatric illness Chronic kidney disease (CKD) Suicide Anesthesia complication Bleeding disorder Lung disease Social History Smoking and tobacco status: never smoked Second hand smoke exposure: Yes Alcohol intake: current Alcohol intake frequency: holidays/special occasions only Substance/Drug Use: never Course Vital Signs: Vital signs: Vital Signs Temperature 98.2 F 10/22/22 00:06 Pulse Rate 90 10/22/22 00:06 Respiratory Rate 16 10/22/22 00:06 Blood Pressure 106/66 10/22/22 00:06 Pulse Oximetry 100 10/22/22 00:06 Oxygen Delivery Me thod Room Air 10/21/22 18:41 MDM - Altered Mental Status Medical Decision Making 36-year-old lady resenting with mental status change. No focal neurologic deficits appreciated on my exam. Patient appears oriented and provides good clinical history. She does report similar with prior electrolyte derangements. Laboratory studies ordered. Fluid bolus ordered. Handed off to Dr. Patel pending completion of ED evaluation and disposition. 36-year-old female checked out to me at shift change by the previous physician. Vitals been stable. Her hemoglobin is 8.5, which is actually up for her. White blood cell count is 8.5. Potassium is 3.2, and is repleted. Her creatinine is normal at 0.4. Urinalysis is equivocal, as it is mildly contaminated. There is no evidence of severe urinary tract infection to suggest this is a cause. With benign work-up, improvement after fluid, and repletion of her potassium, she will be allowed to discharge Lab Data 10/21/22 17:28 10/21/22 17:28 Laboratory Results WBC 8.5 10^3/uL (4.0-10.0) 10/21/22 17: RBC 2.98 10^6/uL (4.1-5.3) L 10/21/22 17: Hgb 8.5 g/dL (11.5-15.3) L 10/21/22: Hct 27.0 % (37.0-47.0) L 10/21/22 17: MCV 90.6 fl (81-99) 10/21/22 17: MCH 28.5 pg (28.0-34.0) 10/21/22 17: MCHC 31.5 g/dL (30.0-36.0) 10/21/22 17: RDW 16.8 % (12.1-15.1) H 10/21/22 17:28 Plt Count 464 10^3/cmm (130-400) H 10/21/22 17:28 MPV 9.2 fL (7.4-10.4) 10/21/22 17: Neut % (Auto) 68.8 % 10/21/22 17: Lymph % (Auto) 20.6 % 10/21/22: [place] % (Auto) 9.1 % 10/21/22: Eos % (Auto) 0.9 % 10/21/22 17: Baso % (Auto) 0.5 % 10/21/22: Neut # (Auto) 5.84 10^3/uL (1.8-7.7) 10/21/22: Lymph # (Auto) 1.8 10^3/uL (0.8-4.8) 10/21/22: [place] # (Auto) 0.8 10^3/uL (0.2-0.9) 10/21/22: Eos # (Auto) 0.1 10^3/uL (0.0-0.8) 10/21/22: Baso # (Auto) 0.0 10^3/uL (0.0-0.1) 10/21/22: Nucleated RBC % (auto) 0 % 10/21/22: Nucleated RBCs # 0.0 /100WBC 10/21/22: Sodium 135 mmol/L (136-145) L 10/21/22: Potassium 3.2 mmol/L (3.5-5.1) L 10/21/22: Chloride 98 mmol/L (98-107) 10/21/22: Carbon Dioxide 24 mmol/L (22-29) 10/21/22: Anion Gap 16.2 (5-19) 10/21/22: BUN 6 mg/dL (6-20) 10/21/22: Creatinine 0.4 mg/dL (0.5-0.9) L 10/21/22: GFR Calculation 181.6 mL/min (90-130) H 10/21/22: Glucose 94 mg/dL (65-115) 10/21/22 17: Calculated Osmolality 277 mOsm/kg (285-295) L 10/21/22: Calcium 9.1 mg/dL (8.5-10.5) 10/21/22 17:28 TSH 1.71 uIU/mL (0.27-4.20) 10/21/22 17:28 Urine Color Yellow (Yellow) 10/21/22 19:19 Urine Appearance Cloudy (CLEAR) A 10/21/22 19:19 Urine pH 8 (5-7) H 10/21/22 19:19 Ur Specific [place] 1.010 (1.005-1.030) 10/21/22 19:19 Urine Protein Neg (Negative) 10/21/22 19:19 Urine Glucose (UA) Norm (Normal) 10/21/22 19:19 Urine Ketones 1+ (Negative) H 10/21/22 19:19 Urine Blood Neg (Negative) 10/21/22 19:19 Urine Nitrate Negative (Negative) 10/21/22 19:19 Urine Bilirubin Neg (Negative) 10/21/22 19:19 Urine Urobilinogen 1 mg/dL (Negative) H 10/21/22 19:19 Ur Leukocyte Esterase Trace (Negative) H 10/21/22 19:19 Urine RBC 0-4 /hpf (0-2) H 10/21/22 19:19 Urine WBC 5-10 /hpf (0-5) H 10/21/22 19:19 Ur Squamous Epith Cells 5-10 /hpf (0-5) H 10/21/22 19:19 Amorphous Sediment 1+ /hpf 10/21/22 19:19 Urine Bacteria 2+ /hpf (NONE) H 10/21/22 19:19 Discharge Plan Discharge Patient Disposition: Home Clinical Impression: Altered mental status, Hypokalemia Condition: Stable Prescriptions: No Action metoprolol tartrate 25 mg tablet 25 mg PO BID bisacodyl [Dulcolax (bisacodyl)] 10 mg suppository 10 mg AK QPM PRN (Reason: Constipation) famotidine 20 mg tablet 20 mg PO DAILY sennosides [senna] 8.6 mg Tablet 8.6 mg PO DAILY PRN (Reason: Constipation) albuterol sulfate 2.5 mg /3 mL (0.083 %) Solution For Nebulization 2.5 mg inhalation Q2H PRN (Reason: Shortness Of Breath) polyethylene glycol 3350 [Miralax] 17 gram Powder In Packet 17 g PO DAILY cetirizine [Zyrtec] 10 mg Tablet 10 mg PO DAILY tizanidine 4 mg Tablet 8 mg PO TID ondansetron HCl 8 mg Tablet 8 mg PO Q6H PRN (Reason: Nausea And Vomiting) lorazepam [Ativan] 0.5 mg Tablet 0.5 mg PO TID PRN (Reason: Anxiety) calcium carbonate [Tums] 200 mg calcium (500 mg) Tablet,Chewable 400 mg PO TID PRN (Reason: Heartburn) docusate sodium [Colace] 100 mg Capsule 100 mg PO BID ergocalciferol (vitamin D2) [Vitamin D2] 1,250 mcg (50,000 unit) Capsule 50,000 unit PO Q7D Culturelle 10 billion cell Capsule 1 cap PO BID erythromycin 250 mg capsule,delayed release(DR/EC) 250 mg PO QID cholecalciferol (vitamin D3) [Vitamin D3] 10 mcg (400 unit) Capsule 800 unit PO DAILY duloxetine [Cymbalta] 30 mg Capsule,Delayed Release(Dr/Ec) 30 mg PO DAILY levalbuterol tartrate [Xopenex HFA] 45 mcg/actuation Hfa Aerosol Inhaler 2 puff INHALATION QID PRN (Reason: Shortness Of Breath) pregabalin [Lyrica] 50 mg Capsule 50 mg PO BID Chloraseptic Sore Throat 6-10 mg Lozenge 1 haylie PO Q4H PRN (Reason: Sore Throat) oxycodone 10 mg Tablet 10 mg PO Q4H PRN (Reason: Pain) Eliquis 5 mg Tablet 5 mg PO BID Movantik 25 mg Tablet 25 mg PO QAM Rx Instructions: must be taken on empty stomach; no food 1 hr after or 2-3 hrs before dose hydrocortisone 0.5 % Cream 1 applic TOPICAL BID PRN (Reason: Rash) Rx Instructions: to lower back and sides as needed for rash sodium chloride 0.9 % (flush) [Normal Saline Flush] Syringe See Rx Instructions .ROUTE .COMPLEX Rx Instructions: 10 ml iv every shift to picc line in left arm for maint patency amlodipine 10 mg tablet 10 mg PO DAILY Qty: 30 0RF methylphenidate HCl 27 mg tablet extended release 24hr 27 mg PO DAILY Tylenol 325 mg Tablet 650 mg PO Q6H PRN (Reason: pain/fever) Eye Drops (with povidone) 0.05-0.1-1-1 % Drops 2 drp ophthalmic (eye) Q4H PRN (Reason: itchy red eyes) Botox 100 unit recon soln See Rx Instructions .ROUTE .COMPLEX Rx Instructions: to be administered at 's office every 3 months (next appt October 25) doxycycline monohydrate 100 mg Tablet 100 mg PO BID Qty: 6 0RF sodium bicarbonate 650 mg Tablet 650 mg PO DAILY Qty: 60 2RF hydralazine 25 mg tablet 25 mg PO TID Qty: 90 4RF Lasix 20 mg tablet 20 mg PO DAILY PRN (Reason: Shortness of breath, weight gain more than 3 pound) Qty: 10 0RF Rx Instructions: On as-needed basis depending on shortness of breath fluid congestion Discharge Orders: Discharge ED (Routine); Ordered 10/21/22 Ordered By: Boyd Patel Referrals: Francine Singh FNP [Primary Care Provider] - 1-3 days Patient Instructions: Hypokalemia (ED), Altered Mental Status (ED) Activity Restrictions/Additional Instructions: Your work-up in the emergency department did not reveal a specific cause of mild altered mental status changes. Your potassium was mildly low, and was replaced. This should be checked again in 48 to 72 hours. Return for worsening mental status, weakness, problems with vision or speech, other concerning symptoms. Coding Level of Care Code ED It Manager for Thomas Martines
[2022-10-21 16:52] VITALS: BP 110/60; PULSE 79; RESP 15; TEMP 36.8; O2SAT 96
[2022-10-21] MEDS: sodium chloride 0.9% 500 ML IV (17:18)
[2022-10-21 17:42] LABS: Basophils % 0.5 %; Eosinophils # 0.1 10^3/uL (0.0-0.8); Eosinophils % 0.9 %; Hemoglobin 8.5 g/dL (11.5-15.3); Lymphocytes # 1.8 10^3/uL (0.8-4.8); Lymphocytes % 20.6 %; Mean Corpuscular HGB Conc 31.5 g/dL (30.0-36.0); Mean Corpuscular Hemoglobin 28.5 pg (28.0-34.0); Mean Corpuscular Volume 90.6 fl (81-99); Mean Platelet Volume 9.2 fL (7.4-10.4); Monocytes # 0.8 10^3/uL (0.2-0.9); Monocytes % 9.1 %; Neutrophils # 5.84 10^3/uL (1.8-7.7); Neutrophils % 68.8 %; Nucleated Red Blood Cells % 0 %; Platelet Count 464 10^3/cmm (130-400); Red Blood Count 2.98 10^6/uL (4.1-5.3); Red Cell Distribution Width 16.8 % (12.1-15.1); White Blood Count 8.5 10^3/uL (4.0-10.0)
[2022-10-21 18:03] VITALS: BP 113/69; PULSE 86; RESP 14; O2SAT 99
[2022-10-21 18:16] LABS: Anion Gap 16.2 (5-19); Blood Urea Nitrogen 6 mg/dL (6-20); Calcium 9.1 mg/dL (8.5-10.5); Carbon Dioxide 24 mmol/L (22-29); Chloride 98 mmol/L (98-107); Glomerular Filtration Rate 181.6 mL/min (90-130); Glucose 94 mg/dL (65-115); Osmolality Calculated 277 mOsm/kg (285-295); Potassium 3.2 mmol/L (3.5-5.1); Sodium 135 mmol/L (136-145); Thyroid Stimulating Hormone 1.71 uIU/mL (0.27-4.20)
[2022-10-21 18:41] VITALS: BP 110/66; PULSE 92; RESP 16; O2SAT 90
[2022-10-21 19:19] VITALS: BP 106/66; PULSE 90; RESP 16; O2SAT 100
[2022-10-21 19:32] LABS: Urine Appearance Cloudy (CLEAR); Urine Color Yellow (Yellow)
[2022-10-21 19:34] LABS: Add Urine Microscopic? YES; Bilirubin Urine Neg (Negative); Blood Urine Neg (Negative); Glucose Urine UA Norm (Normal); Ketones Urine 1+ (Negative); Leukocyte Esterase Urine Trace (Negative); Nitrate Urine Negative (Negative); Protein Urine Neg (Negative); Urobilinogen Urine 1 mg/dL (Negative); pH Urine 8 (5-7)
[2022-10-21 19:38] LABS: RBC Urine 0-4 /hpf (0-2)
[2022-10-21 19:39] LABS: Amorphous Sediment Urine 1+ /hpf; Bacteria Urine 2+ /hpf
[2022-10-22 00:06] VITALS: BP 106/66; PULSE 90; RESP 16; TEMP 36.8; O2SAT 100
== END 2022-10-22 00:07 | disposition home or self-care (01) ==
PROVIDERS: Emergency Medicine; Emergency Provider Emergency Medicine; PCP Nurse Practitioner Family
DX: R41.82 Altered mental status, unspecified (principal); E87.6 Hypokalemia
CPT/HCPCS: 36415; 80048; 81001; 84443; 85025; 87040; 99284; J7040

== ENCOUNTER 2022-10-24 08:00 | Oncology outpatient (recurring) (ONCR) | payer MEDICARE, MEDICAID, SELFPAY ==
[2022-10-24] VITALS (10 sets, daily range): BP systolic 71–99; BP diastolic 46–74; PULSE 76–107; RESP 16–18; TEMP 36.1–37.2; O2SAT 93–97; BMI 24.0
[2022-10-24] MEDS: sodium chloride 0.9% 500 ML 75 ML IV (08:46)
[2022-10-24] MEDS: diphenhydrAMINE 25 mg Capsule 50 MG PO (08:48)
[2022-10-24] MEDS: famotidine 20 mg Tablet PO (08:49)
[2022-10-24] MEDS: ondansetron 2 mg/ML SDV 2 mL 8 MG IVP (08:50)
[2022-10-24 08:54] LABS: Basophils # 0.1 10^3/uL (0.0-0.1); Basophils % 0.7 %; Eosinophils # 0.4 10^3/uL (0.0-0.8); Eosinophils % 4.1 %; Hematocrit 25.4 % (37.0-47.0); Hemoglobin 7.9 g/dL (11.5-15.3); Lymphocytes # 2.7 10^3/uL (0.8-4.8); Lymphocytes % 27.9 %; Mean Corpuscular HGB Conc 31.1 g/dL (30.0-36.0); Mean Corpuscular Hemoglobin 28.4 pg (28.0-34.0); Mean Corpuscular Volume 91.4 fl (81-99); Mean Platelet Volume 9.4 fL (7.4-10.4); Monocytes # 1.2 10^3/uL (0.2-0.9); Monocytes % 12.4 %; Neutrophils # 5.24 10^3/uL (1.8-7.7); Neutrophils % 54.4 %; Nucleated Red Blood Cells % 0 %; Platelet Count 522 10^3/cmm (130-400); Red Blood Count 2.78 10^6/uL (4.1-5.3); Red Cell Distribution Width 16.7 % (12.1-15.1); White Blood Count 9.6 10^3/uL (4.0-10.0)
[2022-10-24 09:12] LABS: Alanine Aminotransferase < 5 U/L (0-33); Alkaline Phosphatase 80 U/L (35-105); Aspartate Amino Transferase 7 U/L (0-32); Blood Urea Nitrogen 7 mg/dL (6-20); Calcium 8.6 mg/dL (8.5-10.5); Carbon Dioxide 26 mmol/L (22-29); Chloride 99 mmol/L (98-107); Glomerular Filtration Rate 181.6 mL/min (90-130); Glucose 93 mg/dL (65-115); Osmolality Calculated 280 mOsm/kg (285-295); Sodium 136 mmol/L (136-145); Total Bilirubin 0.2 mg/dL (0.15-1.2)
[2022-10-24] MEDS: potassium chloride ER 10 mEq Tablet 20 MEQ PO (13:30)
== END 2022-10-24 23:59 | disposition home or self-care (01) ==
PROVIDERS: Internal Medicine Medical Oncology; PCP Nurse Practitioner Family; Visit Provider Nurse Practitioner
DX: E00-E89 Endocrine, nutritional and metabolic diseases (principal); D50.9 Iron deficiency anemia, unspecified; Z79.899 Other long term (current) drug therapy
CPT/HCPCS: 80053; 85025; 96365; 96366; 96375; J1322; J1642; J2405; J7040; J7050

== ENCOUNTER 2022-10-25 06:00 | Oncology outpatient (recurring) (ONCR) | payer MEDICARE, MEDICAID, SELFPAY | END 2022-11-02 23:59 | disposition home or self-care (01) | LOC: ONCMED 11:55 | PROVIDERS: PCP Nurse Practitioner Family; Visit Provider Nurse Practitioner | DX: Z53.9 Procedure and treatment not carried out, unspecified reason (principal); E00-E89 Endocrine, nutritional and metabolic diseases; D50.9 Iron deficiency anemia, unspecified; Z79.899 Other long term (current) drug therapy ==

== ENCOUNTER 2022-10-31 08:50 | Emergency (ER) | payer MEDICARE, MEDICAID, SELFPAY ==
[2022-10-31 08:51] VITALS: BP 98/69; PULSE 81; RESP 18; TEMP 37.7; O2SAT 96
--- NOTE | 2022-10-31 09:02 | XR_ITS ---
WS: [id number] Exam: XR chest 1V portable [id number] Date/Time of Exam: 10/31/2022 9:07 AM Reason For Exam: low grade fever Comparison 10/15/2022. There is infiltrate in the right upper lobe suspicious for developing pneumonia. Remaining lung field s are clear. No pneumothorax or pleural effusion. Heart size top limits normal. The mediastinum is no rmal in contour. Fusion hardware noted in the thoracic and cervical spine. Advanced degenerative mcneill ges of both shoulders for age. XR/XR chest 1V portable [id number] IMPRESSION: 1. Right upper lobe infiltrate suspicious for developing pneumonia.
--- NOTE | 2022-10-31 09:03 | ED_ITS ---
HPI - Fever General: Chief Complaint: Fever Stated Complaint: fever Time Seen by Provider: 10/31/22 08:54 Source: patient Mode of arrival: EMS Limitations: no limitations History of Present Illness: Patient is a 36-year-old female with a history of mucopolysaccharidosis here for concerns of a low-grade fever. Patient was scheduled for her elosulfase genoveva infusion infusion today but states when Avi Braden checked her vitals they noted a low-grade fever of 100.0. She states they will not do the infusion if she is running fevers so she was sent to the emergency department as a precaution as she has a history of sepsis. Patient states she does not have any specific complaints at the moment. Fever is 99.9 upon arrival. He states she has not been sick recently. No cough/congestion/URI-like symptoms. She has no abdominal pain, vomiting, diarrhea. No urinary complaints. She has not noticed any rash or abnormal skin lesions. MD elicited complaint: fever (low grade) Onset (ago): hour(s) Exacerbating factors: nothing Relieving factors: nothing Associated symptoms: Reports chills; Deny abdominal pain, flank pain, chest pain, confusion, diarrhea, dysuria, extremity pain, headache(s), nasal congestion, sinus pain or vomiting Treatments prior to arrival fever: none Review of Systems Const: Reports: fever(s) (low grade-highest reading 100.0) and chills; Denies: body aches, fatigue or malaise Eyes: Denies: eye discomfort, eye discharge or eye redness ENMT: Denies: throat pain, odynophagia, ear or mastoid pain, nasal discharge, nasal congestion or sinus pain Card: Denies: chest pain Resp: Denies: dyspnea, productive cough, non-productive cough, pain on inspiration or chest congestion GI: Denies: abdominal pain, vomiting, diarrhea or change in bowel habits : Denies: flank pain, difficulty voiding, dysuria, hematuria or pelvic pain Musc: Denies: neck pain, back pain, extremity pain or joint pain Skin/Breast: Denies: rash Neuro: Denies: headache(s), dizziness, confusion, behavioral changes, Slurred speech present or difficulty communicating thoughts PFS ED PFSH: Medical History Acute hyperkalemia Acute hyponatremia Acute kidney injury Acute kidney injury ADD (attention deficit disorder) Anemia Anxiety and depression Asthma 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 Chronic migraine Chronic migraine without aura, intractable, with status migrainosus Chronic musculoskeletal pain Gastroparesis History of hip fracture History of pulmonary embolism Hyperkalemia Hyperkalemia Hypertension Hyponatremia 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, type 4 Transaminitis History of transaminitis, presumed secondary to acetaminophen Surgical History History of back surgery History of left knee surgery History of neck surgery History of right hip replacement History of spinal fusion In 2000 and in 2002 History of surgery on lower extremity (1998) Right leg surgery History of total left hip arthroplasty (12/2015) History of total right hip arthroplasty (03/2016) Port-A-Cath in place Family History Father Clotting disorder Hyperlipidemia Mother Hyperlipidemia Other Cancer Diabetes Hypertension Stroke Denies family history of CAD (coronary artery disease) Dementia Psychiatric illness Chronic kidney disease (CKD) Suicide Anesthesia complication Bleeding disorder Lung disease Social History Smoking and tobacco status: never smoked Second hand smoke exposure: Yes Alcohol intake: current Alcohol intake frequency: holidays/special occasions only Substance/Drug Use: never Physical Exam Const: COMMON NORMALS: no acute distress, patient oriented x3, no limitations and alert GENERAL APPEARANCE: cooperative ORIENTATION/CONSCIOUSNESS: Yes awake, Yes oriented to person, Yes oriented to place and Yes oriented to time HENMT: COMMON NORMALS: normocephalic, atraumatic and TM's normal bilaterally HEAD & SCALP: normal to inspection, normocephalic and atraumatic FACE & SINUS: normal facial exam TYMPANIC MEMBRANE: TM's normal bilaterally MOUTH: Normal oral and palatal mucosa present THROAT: posterior oropharynx normal and tonsils normal Eye: COMMON NORMALS: no scleral icterus GENERAL EYE: appearance normal, both eyes and all related structures Neck/C-Spine: COMMON NORMALS: no lymphadenopathy and no meningeal signs Resp: COMMON NORMALS: normal respiratory effort and clear to auscultation b ilaterally AUSCULTATION: clear to auscultation bilaterally Cardio: COMMON NORMALS: regular rate and regular rhythm RATE: regular rate RHYTHM: regular rhythm GI: COMMON NORMALS: Normal to inspection, nondistended, normoactive bowel sounds present, Soft to palpation and non-tender PALPATION: Yes Soft to palpation : COMMON NORMALS: Yes no CVA tenderness BLADDER/KIDNEY EXAM: Yes no CVA tenderness Back/Pelvis: COMMON NORMALS: no CVA tenderness, thoracic and lumbar spine normal to inspection, no thoracic nor lumbar tenderness and thoraco-lumbar ROM normal Extremity: COMMON NORMALS: normal to inspection GENERAL: Yes normal exam except as noted Neuro: IZZY COMA SCALE: document GCS findings Izzy coma scale eye opening: Spontaneous Izzy coma scale verbal response: Orientated Izzy coma scale motor response: Obey commands Izzy coma scale total score: 15 COMMON NORMALS: patient oriented x3, moves all extremities, no focal motor deficits and no sensory deficits noted SENSORIUM/ORIENTATION: Yes alert, Yes oriented to person, Yes oriented to place and Yes oriented to time MENINGEAL SIGNS: Yes no meningeal signs Skin: COMMON NORMALS: no rashes or lesions noted GENERAL SKIN EXAM: no rashes or lesions noted Course Vital Signs: Vital signs: Vital Signs Temperature 99.9 F H 10/31/22 08:51 Pulse Rate 81 10/31/22 08:51 Respiratory Rate 18 10/31/22 08:51 Blood Pressure 91/68 10/31/22 09:13 Pulse Oximetry 96 10/31/22 08:51 Oxygen Delivery Me thod Room Air 10/31/22 08:51 MDM - Fever Medical Decision Making Blood work overall is nonactionable. She has chronic anemia. UA is not overly suspicious for infection. CXR does show a right upper lobe infiltrate so she w ill be covered with antibiotics for this. Recommend follow-up with primary care by the end of the week for reevaluation. Return to ED precautions given. Lab Data 10/31/22 09:22 10/31/22 09:22 Radiology Impressions Chest X-Ray 10/31/22 09:02 IMPRESSION: 1. Right upper lobe infiltrate suspicious for developing pneumonia. Laboratory Results WBC 10.4 10^3/uL (4.0-10.0) H 10/31/22 09:22 RBC 3.08 10^6/uL (4.1-5.3) L 10/31/22 09:22 Hgb 8.4 g/dL (11.5-15.3) L 10/31/22 09:22 Hct 27.8 % (37.0-47.0) L 10/31/22 09:22 MCV 90.3 fl (81-99) 10/31/22 09:22 MCH 27.3 pg (28.0-34.0) L 10/31/22 09:22 MCHC 30.2 g/dL (30.0-36.0) 10/31/22 09:22 RDW 16.9 % (12.1-15.1) H 10/31/22 09:22 Plt Count 647 10^3/cmm (130-400) H 10/31/22 09:22 MPV 10.0 fL (7.4-10.4) 10/31/22 09:22 Neut % (Auto) 66.4 % 10/31/22 09:22 Lymph % (Auto) 23.0 % 10/31/22 09:22 Hanson % (Auto) 7.4 % 10/31/22 09:22 Eos % (Auto) 2.1 % 10/31/22 09:22 Baso % (Auto) 0.6 % 10/31/22 09:22 Neut # (Auto) 6.87 10^3/uL (1.8-7.7) 10/31/22 09:22 Lymph # (Auto) 2.4 10^3/uL (0.8-4.8) 10/31/22 09:22 Hanson # (Auto) 0.8 10^3/uL (0.2-0.9) 10/31/22 09:22 Eos # (Auto) 0.2 10^3/uL (0.0-0.8) 10/31/22 09:22 Baso # (Auto) 0.1 10^3/uL (0.0-0.1) 10/31/22 09:22 Nucleated RBC % (auto) 0 % 10/31/22 09: Nucleated RBCs # 0.0 /100WBC 10/31/22 09:22 Sodium 133 mmol/L (136-145) L 10/31/22 09:22 Potassium 4.1 mmol/L (3.5-5.1) 10/31/22 09:22 Chloride 97 mmol/L (98-107) L 10/31/22 09:22 Carbon Dioxide 24 mmol/L (22-29) 10/31/22 09:22 Anion Gap 16.1 (5-19) 10/31/22 09:22 BUN 6 mg/dL (6-20) 10/31/22 09:22 Creatinine 0.4 mg/dL (0.5-0.9) L 10/31/22 09:22 GFR Calculation 181.6 mL/min (90-130) H 10/31/22 09:22 Glucose 97 mg/dL (65-115) 10/31/22 09:22 Calculated Osmolality 274 mOsm/kg (285-295) L 10/31/22 09:22 Calcium 9.3 mg/dL (8.5-10.5) 10/31/22 09:22 Total Bilirubin 0.2 mg/dL (0.15-1.2) 10/31/22 09:22 AST 8 U/L (0-32) 10/31/22 09:22 ALT < 5 U/L (0-33) 10/31/22 09:22 Alkaline Phosphatase 103 U/L (35-105) 10/31/22 09:22 Total Protein 7.1 g/dL (6.6-8.7) 10/31/22 09:22 Albumin 3.0 g/dL (3.5-5.2) L 10/31/22 09:22 Globulin 4.1 g/dL (1.3-4.6) 10/31/22 09:22 Urine Color Yellow (Yellow) 10/31/22 09:05 Urine Appearance Sl hazy (CLEAR) A 10/31/22 09:05 Urine pH 7 (5-7) 10/31/22 09:05 Ur Specific [place] 1.015 (1.005-1.030) 10/31/22 09:05 Urine Protein Neg (Negative) 10/31/22 09:05 Urine Glucose (UA) Norm (Normal) 10/31/22 09:05 Urine Ketones Negative (Negative) 10/31/22 09:05 Urine Blood Neg (Negative) 10/31/22 09:05 Urine Nitrate Negative (Negative) 10/31/22 09:05 Urine Bilirubin Neg (Negative) 10/31/22 09:05 Urine Urobilinogen Norm mg/dL (Negative) 10/31/22 09:05 Ur Leukocyte Esterase Negative (Negative) 10/31/22 09:05 Urine RBC 0-4 /hpf (0-2) H 10/31/22 09:05 Urine WBC 10-15 /hpf (0-5) H 10/31/22 09:05 Ur Squamous Epith Cells 0-4 /hpf (0-5) H 10/31/22 09:05 Ur Renal Epithelial Cell 0-4 /hpf 10/31/22 09:05 Amorphous Sediment Trace /hpf 10/31/22 09:05 Urine Bacteria Trace /hpf (NONE) 10/31/22 09:05 Urine Mucus 1+ /hpf 10/31/22 09:05 Discharge Plan Discharge Patient Disposition: Home Clinical Impression: Right upper lobe pneumonia Qualifiers: Pneumonia type: due to unspecified organism Qualified Code(s): J18.9 - Pneumonia, unspecified organism Condition: Stable Prescriptions: New levofloxacin 500 mg tablet 500 mg PO DAILY 7 Days Qty: 7 0RF No Action metoprolol tartrate 25 mg tablet 25 mg PO BID bisacodyl [Dulcolax (bisacodyl)] 10 mg suppository 10 mg CO QPM PRN (Reason: Constipation) famotidine 20 mg tablet 20 mg PO DAILY sennosides [senna] 8.6 mg Tablet 8.6 mg PO DAILY PRN (Reason: Constipation) albuterol sulfate 2.5 mg /3 mL (0.083 %) Solution For Nebulization 2.5 mg inhalation Q2H PRN (Reason: Shortness Of Breath) polyethylene glycol 3350 [Miralax] 17 gram Powder In Packet 17 g PO DAILY cetirizine [Zyrtec] 10 mg Tablet 10 mg PO DAILY tizanidine 4 mg Tablet 8 mg PO TID ondansetron HCl 8 mg Tablet 8 mg PO Q6H PRN (Reason: Nausea And Vomiting) lorazepam [Ativan] 0.5 mg Tablet 0.5 mg PO TID PRN (Reason: Anxiety) calcium carbonate [Tums] 200 mg calcium (500 mg) Tablet,Chewable 400 mg PO TID PRN (Reason: Heartburn) docusate sodium [Colace] 100 mg Capsule 100 mg PO BID ergocalciferol (vitamin D2) [Vitamin D2] 1,250 mcg (50,000 unit) Capsule 50,000 unit PO Q7D Culturelle 10 billion cell Capsule 1 cap PO BID erythromycin 250 mg capsule,delayed release(DR/EC) 250 mg PO QID cholecalciferol (vitamin D3) [Vitamin D3] 10 mcg (400 unit) Capsule 800 unit PO DAILY duloxetine [Cymbalta] 30 mg Capsule,Delayed Release(Dr/Ec) 30 mg PO DAILY levalbuterol tartrate [Xopenex HFA] 45 mcg/actuation Hfa Aerosol Inhaler 2 puff INHALATION QID PRN (Reason: Shortness Of Breath) pregabalin [Lyrica] 50 mg Capsule 50 mg PO BID Chloraseptic Sore Throat 6-10 mg Lozenge 1 haylie PO Q4H PRN (Reason: Sore Throat) oxycodone 10 mg Tablet 10 mg PO Q4H PRN (Reason: Pain) Eliquis 5 mg Tablet 5 mg PO BID Movantik 25 mg Tablet 25 mg PO QAM Rx Instructions: must be taken on empty stomach; no food 1 hr after or 2-3 hrs before dose hydrocortisone 0.5 % Cream 1 applic TOPICAL BID PRN (Reason: Rash) Rx Instructions: to lower back and sides as needed for rash sodium chloride 0.9 % (flush) [Normal Saline Flush] Syringe See Rx Instructions .ROUTE .COMPLEX Rx Instructions: 10 ml iv every shift to picc line in left arm for maint patency amlodipine 10 mg tablet 10 mg PO DAILY Qty: 30 0RF methylphenidate HCl 27 mg tablet extended release 24hr 27 mg PO DAILY Tylenol 325 mg Tablet 650 mg PO Q6H PRN (Reason: pain/fever) Eye Drops (with povidone) 0.05-0.1-1-1 % Drops 2 drp ophthalmic (eye) Q4H PRN (Reason: itchy red eyes) Botox 100 unit recon soln See Rx Instructions .ROUTE .COMPLEX Rx Instructions: to be administered at 's office every 3 months (next appt October 25) doxycycline monohydrate 100 mg Tablet 100 mg PO BID Qty: 6 0RF sodium bicarbonate 650 mg Tablet 650 mg PO DAILY Qty: 60 2RF hydralazine 25 mg tablet 25 mg PO TID Qty: 90 4RF Lasix 20 mg tablet 20 mg PO DAILY PRN (Reason: Shortness of breath, weight gain more than 3 pound) Qty: 10 0RF Rx Instructions: On as-needed basis depending on shortness of breath fluid congestion Discharge Orders: Discharge ED (Routine); Ordered 10/31/22 Ordered By: Ani Ang Referrals: Francine Singh FNP [Primary Care Provider] - Patient Instructions: Bacterial Pneumonia (DC) Activity Restrictions/Additional Instructions: Please follow-up with your primary care provider by the end of the week for reevaluation. You need to return to the emergency department for worsening fevers, severe chest pain, shortness of breath, difficulty breathing, generally feeling worse or unwell, or any other concerns you may have. I hope you begin to feel better soon. 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
[2022-10-31 09:13] VITALS: BP 91/68
[2022-10-31 09:21] LABS: Add Urine Microscopic? YES; Bilirubin Urine Neg (Negative); Blood Urine Neg (Negative); Glucose Urine UA Norm (Normal); Ketones Urine Negative (Negative); Leukocyte Esterase Urine Negative (Negative); Nitrate Urine Negative (Negative); Protein Urine Neg (Negative); Specific Gravity, Urine 1.015 (1.005-1.030); Urine Appearance SL Hazy (CLEAR); Urine Color Yellow (Yellow); Urobilinogen Urine Norm (Negative); pH Urine 7 (5-7)
[2022-10-31 09:27] LABS: Amorphous Sediment Urine TRACE /hpf; Bacteria Urine TRACE /hpf; Mucus Urine 1+ /hpf; RBC Urine 0-4 /hpf (0-2); Renal Epithelial Cells Urine 0-4 /hpf; Squamous Epithelial Cell Urine 0-4 /hpf (0-5)
[2022-10-31 09:28] LABS: Add Urine Culture? No
[2022-10-31 09:38] LABS: Basophils # 0.1 10^3/uL (0.0-0.1); Basophils % 0.6 %; Eosinophils # 0.2 10^3/uL (0.0-0.8); Eosinophils % 2.1 %; Hematocrit 27.8 % (37.0-47.0); Hemoglobin 8.4 g/dL (11.5-15.3); Lymphocytes # 2.4 10^3/uL (0.8-4.8); Mean Corpuscular HGB Conc 30.2 g/dL (30.0-36.0); Mean Corpuscular Hemoglobin 27.3 pg (28.0-34.0); Mean Corpuscular Volume 90.3 fl (81-99); Monocytes # 0.8 10^3/uL (0.2-0.9); Monocytes % 7.4 %; Neutrophils # 6.87 10^3/uL (1.8-7.7); Neutrophils % 66.4 %; Nucleated Red Blood Cells % 0 %; Platelet Count 647 10^3/cmm (130-400); Red Blood Count 3.08 10^6/uL (4.1-5.3); Red Cell Distribution Width 16.9 % (12.1-15.1); White Blood Count 10.4 10^3/uL (4.0-10.0)
[2022-10-31 09:55] LABS: Alanine Aminotransferase < 5 U/L (0-33); Alkaline Phosphatase 103 U/L (35-105); Anion Gap 16.1 (5-19); Aspartate Amino Transferase 8 U/L (0-32); Blood Urea Nitrogen 6 mg/dL (6-20); Calcium 9.3 mg/dL (8.5-10.5); Carbon Dioxide 24 mmol/L (22-29); Chloride 97 mmol/L (98-107); Globulin 4.1 g/dL (1.3-4.6); Glomerular Filtration Rate 181.6 mL/min (90-130); Glucose 97 mg/dL (65-115); Osmolality Calculated 274 mOsm/kg (285-295); Potassium 4.1 mmol/L (3.5-5.1); Sodium 133 mmol/L (136-145); Total Bilirubin 0.2 mg/dL (0.15-1.2); Total Protein 7.1 g/dL (6.6-8.7)
== END 2022-10-31 11:26 | disposition home or self-care (01) ==
PROVIDERS: Emergency Provider Physician Assistant; PCP Nurse Practitioner Family
DX: J18.9 Pneumonia, unspecified organism (principal)
CPT/HCPCS: 36415; 71045; 80053; 81001; 85025; 99284

== ENCOUNTER → 2022-11-01 14:11 | Outpatient (BNVA) | payer MEDICARE, MEDICAID, SELFPAY | PROVIDERS: PCP Nurse Practitioner Family; Visit Provider Specialist | DX: G43.711 Chronic migraine without aura, intractable, with status migrainosus (principal) | CPT/HCPCS: 64615 ==

== ENCOUNTER 2022-11-07 08:07 | Oncology outpatient (recurring) (ONCR) | payer MEDICARE, MEDICAID, SELFPAY ==
[2022-11-07 08:10] VITALS: BP 119/67; PULSE 98; RESP 16; TEMP 36.3; O2SAT 97
[2022-11-07] MEDS: sodium chloride 0.9% 500 ML 75 ML IV (08:59)
[2022-11-07] MEDS: diphenhydrAMINE 25 mg Capsule 50 MG PO (09:00)
[2022-11-07] MEDS: famotidine 20 mg Tablet PO (09:02)
[2022-11-07] MEDS: ondansetron 2 mg/ML SDV 2 mL 8 MG IVP (09:03)
[2022-11-07 14:00] VITALS: BP 112/84; BP 93/62; PULSE 103; PULSE 88; RESP 16; RESP 18; TEMP 36.4; TEMP 36.9; O2SAT 91; O2SAT 94
== END 2022-11-07 23:59 | disposition home or self-care (01) ==
PROVIDERS: PCP Nurse Practitioner Family; Visit Provider Nurse Practitioner
DX: E00-E89 Endocrine, nutritional and metabolic diseases (principal)
CPT/HCPCS: 96365; 96366; 96375; J1322; J2405; J7040; J7050

== ENCOUNTER 2022-11-14 08:00 | Oncology outpatient (recurring) (ONCR) | payer MEDICARE, MEDICAID, SELFPAY ==
[2022-11-14] VITALS (8 sets, daily range): BP systolic 76–102; BP diastolic 50–71; PULSE 62–88; RESP 16; TEMP 35.7–36.7; O2SAT 93–99
[2022-11-14] MEDS: famotidine 20 mg Tablet PO (08:43)
[2022-11-14] MEDS: diphenhydrAMINE 25 mg Capsule 50 MG PO (08:43)
[2022-11-14] MEDS: ondansetron 2 mg/ML SDV 2 mL 8 MG IVP (08:44)
[2022-11-14] MEDS: sodium chloride 0.9% 500 ML 75 ML IV (08:45)
[2022-11-14] MEDS: oxyCODONE 5 mg IR Tab/Cap 10 MG PO (09:59)
== END 2022-11-14 23:59 | disposition home or self-care (01) ==
PROVIDERS: PCP Nurse Practitioner Family; Visit Provider Nurse Practitioner
DX: E76.219 Morquio mucopolysaccharidoses, unspecified (principal)
CPT/HCPCS: 96365; 96366; 96375; J1322; J2405; J7040; J7050

== ENCOUNTER 2022-11-15 06:00 | Oncology outpatient (recurring) (ONCR) | payer MEDICARE, MEDICAID, SELFPAY | END 2022-12-03 23:59 | disposition home or self-care (01) | LOC: ONCMED 13:34 | PROVIDERS: PCP Nurse Practitioner Family; Visit Provider Nurse Practitioner | DX: Z53.9 Procedure and treatment not carried out, unspecified reason (principal); E00-E89 Endocrine, nutritional and metabolic diseases; D50.9 Iron deficiency anemia, unspecified; Z79.899 Other long term (current) drug therapy ==

== ENCOUNTER 2022-11-21 08:48 | Emergency (ER) | payer MEDICARE, MEDICAID, SELFPAY ==
[2022-11-21] VITALS (11 sets, daily range): BP systolic 108–140; BP diastolic 55–93; PULSE 73–89; RESP 16–18; TEMP 36.2–36.6; O2SAT 91–95; BMI 23.1
--- NOTE | 2022-11-21 09:05 | W.ED.SKABFB ---
HPI - Skin/Abscess/Foreign Bdy General: Chief complaint: Skin/Abscess/Foreign Body Stated complaint: Rash lower extremities Time Seen by Provider: 11/21/22 08:50 Source: patient Mode of arrival: ambulatory History of Present Illness: 36-year-old female presents emergency room via EMS with complaints of rash on her lower extremities. She has had this rash CBC reviewed overnight she also is reporting a low-grade fever although she is afebrile here. She had taken some Tylenol earlier. No vomiting no diarrhea no abdominal pain or chest pain. She was seen in [place] yesterday regarding a previous spinal fusion that she had had. She had a checkup she did not have any procedures at that time. MD complaint: rash Onset (ago): hour(s) Location: LUE and RLE Relieving factors: none Exacerbating factors: none Associated symptoms: Deny arthralgias, chills, cough, fever(s), itching, myalgias, nausea, rigidity, short of breath or vomiting Review of Systems Const: Denies: fever(s) or chills ENMT: Denies: throat pain, ear or mastoid pain, nasal discharge or nasal congestion Card: Denies: chest pain, edema, dyspnea on exertion or orthopnea Resp: Denies: dyspnea, productive cough or non-productive cough GI: Denies: nausea or vomiting : Denies: flank pain, difficulty voiding, dysuria, urinary frequency or urinary urgency Skin/Breast: Reports: rash; Denies: pruritus PFSH ED PFSH: Medical History Acute hyperkalemia Acute hyponatremia Acute kidney injury Acute kidney injury ADD (attention deficit disorder) Anemia Anxiety and depression Asthma 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 Chronic migraine Chronic migraine without aura, intractable, with status migrainosus Chronic musculoskeletal pain Gastroparesis History of hip fracture History of pulmonary embolism Hyperkalemia Hyperkalemia Hypertension Hyponatremia 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, type 4 Transaminitis History of transaminitis, presumed secondary to acetaminophen Surgical History History of back surgery History of left knee surgery History of neck surgery History of right hip replacement History of spinal fusion In 2000 and in 2002 History of surgery on lower extremity (1998) Right leg surgery History of total left hip arthroplasty (12/2015) History of total right hip arthroplasty (03/2016) Port-[place] in place Family History Father Clotting disorder Hyperlipidemia Mother Hyperlipidemia Other Cancer Diabetes Hypertension Stroke Denies family history of CAD (coronary artery disease) Dementia Psychiatric illness Chronic kidney disease (CKD) Suicide Anesthesia complication Bleeding disorder Lung disease Social History Smoking and tobacco status: never smoked Second hand smoke exposure: Yes Alcohol intake: current Alcohol intake frequency: holidays/special occasions only Substance/Drug Use: never Physical Exam Const: COMMON NORMALS: no acute distress GENERAL APPEARANCE: cooperative and comfortable ORIENTATION/CONSCIOUSNESS: Yes awake, Yes oriented to person, Yes oriented to place and Yes oriented to time HENMT: COMMON NORMALS: normocephalic, atraumatic and hearing grossly normal bilaterally HEAD & SCALP: normocephalic and atraumatic Resp: COMMON NORMALS: normal respiratory effort, No retractions, No use of accessory muscles and clear to auscultation bilaterally AUSCULTATION: clear to auscultation bilaterally Cardio: COMMON NORMALS: regular rate, regular rhythm and No murmurs present (Cardio) RATE: regular rate RHYTHM: regular rhythm GI: COMMON NORMALS: Soft to palpation and No hepatosplenomegaly present AUSCULTATION: Yes normoactive bowel sounds PALPATION: Yes Soft to palpation, No Tenderness to palpation present (GI), No Guarding due to palpation present (GI) and Yes No hepatosplenomegaly present RECTAL EXAM: heme negative stool OTHER: Rectal exam done normal rectal exam Hemoccult negative Extremity: COMMON NORMALS: capillary refill normal, no clubbing, cyanosis or edema, no calf tenderness and no pedal edema Neuro: SENSORIUM/ORIENTATION: Yes oriented to person, Yes oriented to place and Yes oriented to time Skin: OTHER: Mild lower extremity rash slightly reddened areas no induration no vesicles areas are not raised or inflamed nontender to the touch. Course Vital Signs: Vital signs: Vital Signs Temperature 97.2 F L 11/21/22 14:09 Pulse Rate 86 11/21/22 13:09 Respiratory Rate 18 07/19/23 14:09 Blood Pressure 130/84 11/21/22 14:09 Pulse Oximetry 91 11/21/22 14:09 Oxygen Delivery Me thod Room Air 11/21/22 11:48 MDM - Skin/Abscess/Foreign Bdy Medicial Decision Making Rash on lower extremities is partially treated with antibiotics. Does not appear to be significantly infected although she has been on antibiotics for a few days would recommend that we change her to Bactrim she is tolerated this well in the past. She was noted on her laboratory test have a hemoglobin of 77 reviewing her chart and her history she has been trending down remaining in the low hemoglobins at 8 or below since she had her back surgeries this spring. Has had problems with iron deficiency anemia in the past. She usually has been seeing Dr. Ramirez who is well acquainted with her. Anemia labs completed added an [facility] for Dr. Ramirez request. Dr. Ramirez will follow-up with these labs she was discharged from the ER to be transfused 1 unit of packed red blood cells and outpatient infusions. Dr. Ramirez will follow-up with her later this week or next week to review her anemia labs. We also did a rectal exam in the emergency room was Hemoccult negative. Medical Records I reviewed the patient's medical records. Lab Data I reviewed the patient's lab results. 11/21/22 09:17 11/21/22 09:17 Laboratory Results WBC 9.6 10^3/uL (4.0-10.0) 11/21/22 09:17 RBC 2.73 10^6/uL (4.1-5.3) L 11/21/22 09:17 Hgb 7.0 g/dL (11.5-15.3) L 11/21/22 09:17 Hct 23.7 % (37.0-47.0) L 11/21/22 09:17 MCV 86.8 fl (81-99) 11/21/22 09:17 MCH 25.6 pg (28.0-34.0) L 11/21/22 09:17 MCHC 29.5 g/dL (30.0-36.0) L 11/21/22 09:17 RDW 17.2 % (12.1-15.1) H 11/21/22 09:17 Plt Count 625 10^3/cmm (130-400) H 11/21/22 09:17 MPV 9.7 fL (7.4-10.4) 11/21/22 09:17 Neut % (Auto) 72.4 % 11/21/22 09:17 Lymph % (Auto) 19.5 % 11/21/22 09:17 [place] % (Auto) 6.5 % 11/21/22 09:17 Eos % (Auto) 0.7 % 11/21/22 09:17 Baso % (Auto) 0.3 % 11/21/22 09:17 Reticulocyte % (Auto) 1.7 % (0.5-2.0) 11/21/22 09:17 Neut # (Auto) 6.94 10^3/uL (1.8-7.7) 11/21/22 09:17 Lymph # (Auto) 1.9 10^3/uL (0.8-4.8) 11/21/22 09:17 [place] # (Auto) 0.6 10^3/uL (0.2-0.9) 11/21/22 09:17 Eos # (Auto) 0.1 10^3/uL (0.0-0.8) 11/21/22 09:17 Baso # (Auto) 0.0 10^3/uL (0.0-0.1) 11/21/22 09:17 Nucleated RBC % (auto) 0 % 11/21/22 09:17 Nucleated RBCs # 0.0 /100WBC 11/21/22 09:17 Haptoglobin 396.0 mg/L (30-200) H 11/21/22 09:17 Sodium 134 mmol/L (136-145) L 11/21/22 09:17 Potassium 3.9 mmol/L (3.5-5.1) 11/21/22 09:17 Chloride 101 mmol/L (98-107) 11/21/22 09:17 Carbon Dioxide 24 mmol/L (22-29) 11/21/22 09:17 Anion Gap 12.9 (5-19) 11/21/22 09:17 BUN 9 mg/dL (6-20) 11/21/22 09:17 Creatinine 0.5 mg/dL (0.5-0.9) 11/21/22 09:17 GFR Calculation 140.4 mL/min (90-130) H 11/21/22 09:17 Glucose 96 mg/dL (65-115) 11/21/22 09:17 Calculated Osmolality 277 mOsm/kg (285-295) L 11/21/22 09:17 Calcium 8.5 mg/dL (8.5-10.5) 11/21/22 09:17 Iron 11 ug/dL (37-145) L 11/21/22 09:17 TIBC 141 mcg/dl 11/21/22 09:17 % Saturation 7.8 % (20-50) L 11/21/22 09:17 Unsat Iron Binding 130 ug/dL (112-347) 11/21/22 09:17 Vitamin B12 178 pg/mL (232-1245) L 11/21/22 09:17 Folate 8.5 ng/mL (4.8-37.3) 11/21/22 09:17 Blood Type O Positive 11/21/22 10:45 Rho(D) Type Positive 11/21/22 10:45 Antibody Screen Negative 11/21/22 10:45 Crossmatch See Detail 11/21/22 10:45 Discharge Plan Discharge Patient Disposition: Home Clinical Impression: Anemia, Cellulitis Condition: Stable Prescriptions: New Bactrim DS 800-160 mg tablet 1 tab PO DAILY 7 Days Qty: 14 0RF No Action metoprolol tartrate 25 mg tablet 25 mg PO BID bisacodyl [Dulcolax (bisacodyl)] 10 mg suppository 10 mg DE QPM PRN (Reason: Constipation) Botox 100 unit recon soln 155 unit IM Q90D Qty: 2 0RF famotidine 20 mg tablet 20 mg PO DAILY sennosides [senna] 8.6 mg Tablet 8.6 mg PO DAILY PRN (Reason: Constipation) albuterol sulfate 2.5 mg /3 mL (0.083 %) Solution For Nebulization 2.5 mg inhalation Q2H PRN (Reason: Shortness Of Breath) polyethylene glycol 3350 [Miralax] 17 gram Powder In Packet 17 g PO DAILY cetirizine [Zyrtec] 10 mg Tablet 10 mg PO DAILY tizanidine 4 mg Tablet 8 mg PO TID ondansetron HCl 8 mg Tablet 8 mg PO Q6H PRN (Reason: Nausea And Vomiting) lorazepam [Ativan] 0.5 mg Tablet 0.5 mg PO TID PRN (Reason: Anxiety) calcium carbonate [Tums] 200 mg calcium (500 mg) Tablet,Chewable 400 mg PO TID PRN (Reason: Heartburn) docusate sodium [Colace] 100 mg Capsule 100 mg PO BID ergocalciferol (vitamin D2) [Vitamin D2] 1,250 mcg (50,000 unit) Capsule 50,000 unit PO Q7D Culturelle 10 billion cell Capsule 1 cap PO BID erythromycin 250 mg capsule,delayed release(DR/EC) 250 mg PO QID cholecalciferol (vitamin D3) [Vitamin D3] 10 mcg (400 unit) Capsule 800 unit PO DAILY duloxetine [Cymbalta] 30 mg Capsule,Delayed Release(Dr/Ec) 30 mg PO DAILY levalbuterol tartrate [Xopenex HFA] 45 mcg/actuation Hfa Aerosol Inhaler 2 puff INHALATION QID PRN (Reason: Shortness Of Breath) pregabalin [Lyrica] 50 mg Capsule 50 mg PO BID Chloraseptic Sore Throat 6-10 mg Lozenge 1 haylie PO Q4H PRN (Reason: Sore Throat) oxycodone 10 mg Tablet 10 mg PO Q4H PRN (Reason: Pain) Eliquis 5 mg Tablet 5 mg PO BID Movantik 25 mg Tablet 25 mg PO QAM Rx Instructions: must be taken on empty stomach; no food 1 hr after or 2-3 hrs before dose hydrocortisone 0.5 % Cream 1 applic TOPICAL BID PRN (Reason: Rash) Rx Instructions: to lower back and sides as needed for rash sodium chloride 0.9 % (flush) [Normal Saline Flush] Syringe See Rx Instructions .ROUTE .COMPLEX Rx Instructions: 10 ml iv every shift to picc line in left arm for maint patency amlodipine 10 mg tablet 10 mg PO DAILY Qty: 30 0RF Tylenol 325 mg Tablet 650 mg PO Q6H PRN (Reason: pain/fever) Eye Drops (with povidone) 0.05-0.1-1-1 % Drops 2 drp ophthalmic (eye) Q4H PRN (Reason: itchy red eyes) doxycycline monohydrate 100 mg Tablet 100 mg PO BID Qty: 6 0RF sodium bicarbonate 650 mg Tablet 650 mg PO DAILY Qty: 60 2RF hydralazine 25 mg tablet 25 mg PO TID Qty: 90 4RF Lasix 20 mg tablet 20 mg PO DAILY PRN (Reason: Shortness of breath, weight gain more than 3 pound) Qty: 10 0RF Rx Instructions: On as-needed basis depending on shortness of breath fluid congestion Discharge Orders: Discharge ED (Routine); Ordered 11/21/22 Ordered By: Ochoa Gonzalez Other Ambulatory Orders: Lactate Dehydrogenase (Routine) Timeframe: 1 Month Facility: [facility] - Location: Lab - Main Lab Ordered By: Ochoa Gonzalez Referrals: Francine Singh FNP [Primary Care Provider] - Patient Instructions: Opioid Safety, Pain Management Activity Restrictions/Additional Instructions: You were seen today for rash on your legs. It appears it may be a mild cellulitis recommend you stop the amoxicillin and start Bactrim DS 1 p.o. twice daily x14 days. He also noticed to have fairly significant anemia with a hemoglobin of 7 has been trending down last few months since your back surgeries. Anemia work-up was ordered and you will be brought to the GI lab for a transfusion of a unit of blood after being discharged from the emergency room. I contacted Dr. Ramirez who will follow-up on your anemia labs and advise you have any further treatment or evaluation that may be needed. If you have any further problems return to the emergency room. Coding Level of Care Code ED [employer] Manager for [facility] Martines
[2022-11-21 09:52] LABS: Anion Gap 12.9 (5-19); Blood Urea Nitrogen 9 mg/dL (6-20); Calcium 8.5 mg/dL (8.5-10.5); Carbon Dioxide 24 mmol/L (22-29); Chloride 101 mmol/L (98-107); Creatinine Clr Calc Pharmacy 85.4643; Glomerular Filtration Rate 140.4 mL/min (90-130); Glucose 96 mg/dL (65-115); Osmolality Calculated 277 mOsm/kg (285-295); Potassium 3.9 mmol/L (3.5-5.1); Sodium 134 mmol/L (136-145)
[2022-11-21 10:31] LABS: Basophils % 0.3 %; Eosinophils # 0.1 10^3/uL (0.0-0.8); Eosinophils % 0.7 %; Hematocrit 23.7 % (37.0-47.0); Lymphocytes # 1.9 10^3/uL (0.8-4.8); Lymphocytes % 19.5 %; Mean Corpuscular HGB Conc 29.5 g/dL (30.0-36.0); Mean Corpuscular Hemoglobin 25.6 pg (28.0-34.0); Mean Corpuscular Volume 86.8 fl (81-99); Mean Platelet Volume 9.7 fL (7.4-10.4); Monocytes # 0.6 10^3/uL (0.2-0.9); Monocytes % 6.5 %; Neutrophils # 6.94 10^3/uL (1.8-7.7); Neutrophils % 72.4 %; Nucleated Red Blood Cells % 0 %; Platelet Count 625 10^3/cmm (130-400); Red Blood Count 2.73 10^6/uL (4.1-5.3); Red Cell Distribution Width 17.2 % (12.1-15.1); White Blood Count 9.6 10^3/uL (4.0-10.0)
[2022-11-21 11:35] LABS: Reticulocyte % 1.7 % (0.5-2.0)
[2022-11-21 11:48] LABS: Iron 11 ug/dL (37-145); Percent Saturation 7.8 % (20-50); Total Iron Binding Capacity 141 mcg/dl; Unsaturated Iron Binding 130 ug/dL (112-347)
--- NOTE | 2022-11-21 11:48 | PC.NURSE ---
NO IV STARTED PER DR. NANCE
--- NOTE | 2022-11-21 12:00 | PC.NURSE ---
Received report from ED: LONDON Harry. Took over patient care at 1155, transported to [facility]PS for transfusion of 1 unit PRBC. Written order scanned in by Dr. Gonzalez for 1 unit PRBC transfusion, Benadryl 25mg PO prior to infusion, Tylenol 650mg PO prior to infusion, Zofran 4mg PO or IV PRN for nausea, and D/C back home after transfusion complete. Obtaining IV access now.
[2022-11-21 12:03] LABS: Folate Level 8.5 ng/mL (4.8-37.3)
[2022-11-21 12:04] LABS: Vitamin B12 178 pg/mL (232-1245)
[2022-11-21] MEDS: acetaminophen 325 mg Tablet 650 MG PO (12:15)
[2022-11-21] MEDS: diphenhydrAMINE 25 mg Capsule PO (12:15)
[2022-11-21] MEDS: oxyCODONE 10 mg ER (12 HR) Tablet PO (13:04)
--- NOTE | 2022-11-21 14:59 | PC.NURSE ---
PRBC Transfusion Transfusion ended at 1445. Patient tolerated well, no complaints. Avi Braden called to arrange transport back to [facility].
--- NOTE | 2022-11-21 15:29 | PC.NURSE ---
Discharge Transport here to take patient home at 1525. RX given from ER with ER discharge instructions. IV removed. All belongings sent with patient.
[2022-11-26 16:00] LABS: Erythropoietin 110.7 mIU/mL (2.6-18.5)
== END 2022-11-21 11:52 | disposition home or self-care (01) ==
PROVIDERS: Emergency Provider Family Medicine; PCP Nurse Practitioner Family
DX: L03.116 Cellulitis of left lower limb (principal); L03.115 Cellulitis of right lower limb; D64.9 Anemia, unspecified; Z77.22 Contact with and (suspected) exposure to environmental tobacco smoke (acute) (chronic)
CPT/HCPCS: 36415; 36430; 80048; 82607; 82668; 82746; 83010; 83540; 83550; 85025; 85045; 86850; 86900; 86920; 99284; P9040

== ENCOUNTER 2022-11-26 20:13 | Emergency (ER) | payer MEDICARE, MEDICAID, SELFPAY ==
[2022-11-26 20:16] VITALS: BP 105/68; PULSE 90; RESP 18; TEMP 37.8; O2SAT 94; BMI 23.1
[2022-11-26 20:49] VITALS: BP 99/62; PULSE 91; RESP 18; O2SAT 94
--- NOTE | 2022-11-26 21:35 | W.ED.GENADLT ---
HPI - General Adult General: Chief complaint: General Medical Stated complaint: SWELLING/RASH Time Seen by Provider: 11/26/22 20:31 History of Present Illness: Patient presents to the ER with complaints of worsening swelling and rash on her bilateral upper and lower extremities. Patient does have discoloration on her eyelids as well 2. Patient was here approximately week ago where they gave her 1 unit of blood due to her hemoglobin being 7 and change her antibiotic and placed her on Bactrim for cellulitis and rash of her extremities. The patient says this rash is different and that she did not have the swelling last time. This time the rash looks more like ecchymotic areas purpura purpura than a superficial rash. These areas do not itch nor are they painful. The patient does state the swelling is painful. Patient has never had anything like this before. 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, type 4 Transaminitis History of transaminitis, presumed secondary to acetaminophen Surgical History History of back surgery History of left knee surgery History of neck surgery History of right hip replacement History of spinal fusion In 2000 and in 2002 History of surgery on lower extremity (1998) Right leg surgery History of total left hip arthroplasty (12/2015) History of total right hip arthroplasty (03/2016) Port-A-Cath in place Family History Father Clotting disorder Hyperlipidemia Mother Hyperlipidemia Other Cancer Diabetes Hypertension Stroke Denies family history of CAD (coronary artery disease) Dementia Psychiatric illness Chronic kidney disease (CKD) Suicide Anesthesia complication Bleeding disorder Lung disease Social History Smoking and tobacco status: never smoked Second hand smoke exposure: Yes Alcohol intake: current Alcohol intake frequency: holidays/special occasions only Substance/Drug Use: never Physical Exam Const: COMMON NORMALS: no acute distress, average body habitus, patient oriented x3, no limitations, healthy appearing, alert and well nourished HENMT: COMMON NORMALS: normocephalic, atraumatic, hearing grossly normal bilaterally, external ears normal, Normal external nose present and moist oral mucous membranes HEAD & SCALP: normocephalic and atraumatic NOSE: Normal external nose present EXTERNAL EAR: Yes external ears normal Eye: COMMON NORMALS: Equal, round and reactive pupils present (Eyelids have a purpuric type appearance to them specially the upper eyelids), EOMs intact bilaterally, conjunctivae normal and no scleral icterus CONJUNCTIVA: Yes conjunctivae normal PUPIL: Yes Equal, round and reactive pupils present (Eyelids have a purpuric type appearance to them specially the upper eyelids) Neck/C-Spine: COMMON NORMALS: full ROM, no lymphadenopathy, no meningeal signs, no JVD and Thyroid normal THYROID: Thyroid normal Chest: COMMONS NORMALS: normal inspection of the chest and normal palpation of entire chest wall Resp: COMMON NORMALS: normal respiratory effort, No retractions, No use of accessory muscles and clear to auscultation bilaterally AUSCULTATION: clear to auscultation bilaterally Cardio: COMMON NORMALS: no JVD, regular rate, regular rhythm, S1 normal heart sound present, S2 normal heart sound present, No gallops present (Cardio), No clicks present (Cardio) and No murmurs present (Cardio) RATE: regular rate RHYTHM: regular rhythm HEART SOUNDS: S1 normal heart sound present and S2 normal heart sound present GI: COMMON NORMALS: Normal to inspection, nondistended, normoactive bowel sounds present, Soft to palpation, non-tender and No hepatosplenomegaly present PALPATION: Yes Soft to palpation and Yes No hepatosplenomegaly present Extremity: NARRATIVE EXTREMITY EXAM: Patient has purpura like lesions to bilateral upper extremities in multiple different areas as well as skin lesions and lower extremities. Patient also has these lesions on her upper eyelids. Patient has swelling in her upper and lower extremities. Neuro: COMMON NORMALS: patient oriented x3 SENSORIUM/ORIENTATION: Yes alert MENINGEAL SIGNS: Yes no meningeal signs Course Vital Signs: Vital signs: Vital Signs Temperature 100.1 F H 11/26/22 20:16 Pulse Rate 91 11/26/22 20:49 Respiratory Rate 18 11/26/22 20:49 Blood Pressure 99/62 11/26/22 20:49 Pulse Oximetry 94 11/26/22 20:49 Oxygen Delivery Me thod Room Air 11/26/22 20:49 MDM - General Adult Medical Decision Making Presents to the ER with these purpuric type lesions on her upper and lower extremities and eyelids. Patient just finished a round of antibiotics for what was thought to be cellulitis. This antibiotic was Bactrim. Upon further review of the chart Bactrim was indicated to have possibly caused her hyponatremia and hyperkalemia in the past. Patient sodium currently is 125 potassium is 4.5. C-reactive protein is 101. X-ray was obtained but is pending. Patient's temperature was 100.1. Patient is complaining of back pain. Patient is normally on oxy 10 mg for pain. Daryl was consulted for the purpura and the hyponatremia. He reviewed the chart and said this is often on chronic hyponatremia more likely secondary to the Bactrim. And should resolve on its own. He suggested outpatient follow-up for dermatology due to the purpura. Patient will be discharged home Case management will be consulted for dermatology appointment. Medical Records I reviewed the patient's medical records. Lab Data I reviewed the patient's lab results. 11/26/22 21:43 11/26/22 21:43 Laboratory Results WBC 7.4 10^3/uL (4.0-10.0) 11/26/22 21:43 RBC 3.75 10^6/uL (4.1-5.3) L 11/26/22 21:43 Hgb 9.9 g/dL (11.5-15.3) L 11/26/22 21:43 Hct 31.4 % (37.0-47.0) L 11/26/22 21:43 MCV 83.7 fl (81-99) 11/26/22 21:43 MCH 26.4 pg (28.0-34.0) L 11/26/22 21:43 MCHC 31.5 g/dL (30.0-36.0) 11/26/22 21:43 RDW 16.8 % (12.1-15.1) H 11/26/22 21:43 Plt Count 610 10^3/cmm (130-400) H 11/26/22 21:43 MPV 9.4 fL (7.4-10.4) 11/26/22 21:43 Neut % (Auto) 76.4 % 11/26/22 21:43 Lymph % (Auto) 18.9 % 11/26/22 21:43 [place] % (Auto) 3.1 % 11/26/22 21:43 Eos % (Auto) 0.5 % 11/26/22 21:43 Baso % (Auto) 0.1 % 11/26/22 21:43 Neut # (Auto) 5.62 10^3/uL (1.8-7.7) 11/26/22 21:43 Lymph # (Auto) 1.4 10^3/uL (0.8-4.8) 11/26/22 21:43 [place] # (Auto) 0.2 10^3/uL (0.2-0.9) 11/26/22 21:43 Eos # (Auto) 0.0 10^3/uL (0.0-0.8) 11/26/22 21:43 Baso # (Auto) 0.0 10^3/uL (0.0-0.1) 11/26/22 21:43 Nucleated RBC % (auto) 0 % 11/26/22 21:43 Nucleated RBCs # 0.0 /100WBC 11/26/22 21:43 PT 23.10 SECONDS (12.1-14.9) H 11/26/22 21:43 INR 1.97 (0.8-1.2) H 11/26/22 21:43 Sodium 125 mmol/L (136-145) L 11/26/22 21:43 Potassium 4.5 mmol/L (3.5-5.1) 11/26/22 21:43 Chloride 93 mmol/L (98-107) L 11/26/22 21:43 Carbon Dioxide 23 mmol/L (22-29) 11/26/22 21:43 Anion Gap 13.5 (5-19) 11/26/22 21:43 BUN 9 mg/dL (6-20) 11/26/22 21:43 Creatinine 0.6 mg/dL (0.5-0.9) 11/26/22 21:43 GFR Calculation 113.8 mL/min (90-130) 11/26/22 21:43 Glucose 105 mg/dL (65-115) 11/26/22 21:43 Calculated Osmolality 259 mOsm/kg (285-295) L 11/26/22 21:43 Calcium 8.3 mg/dL (8.5-10.5) L 11/26/22 21:43 Total Bilirubin 0.2 mg/dL (0.15-1.2) 11/26/22 21:43 AST 11 U/L (0-32) 11/26/22 21:43 ALT < 5 U/L (0-33) 11/26/22 21:43 Alkaline Phosphatase 105 U/L (35-105) 11/26/22 21:43 C-Reactive Protein 101.0 mg/L (0.0-4.9) H 11/26/22 21:43 Total Protein 6.5 g/dL (6.6-8.7) L 11/26/22 21:43 Albumin 2.7 g/dL (3.5-5.2) L 11/26/22 21:43 Globulin 3.8 g/dL (1.3-4.6) 11/26/22 21:43 Discharge Plan Discharge Patient Disposition: Home Clinical Impression: Chronic hyponatremia, Purpura, CRP elevated Condition: Stable Prescriptions: No Action metoprolol tartrate 25 mg tablet 25 mg PO BID bisacodyl [Dulcolax (bisacodyl)] 10 mg suppository 10 mg NM QPM PRN (Reason: Constipation) Botox 100 unit recon soln 155 unit IM Q90D Qty: 2 0RF famotidine 20 mg tablet hydrocortisone 0.5 % Cream TOPICAL levalbuterol tartrate 45 mcg/actuation HFA aerosol inhaler INHALATION methylphenidate HCl 27 mg tablet extended release 24hr PO metoprolol tartrate 25 mg tablet Movantik 25 mg tablet PO ondansetron HCl 8 mg tablet pregabalin 50 mg capsule senna 8.6 mg Tablet tizanidine 4 mg capsule potassium chloride 20 mEq tablet extended release PO Miralax 17 gram/dose Powder Tylenol 325 mg Capsule 650 mg docusate sodium lorazepam 0.5 mg tablet oxycodone 10 mg tablet hydralazine 25 mg Tablet Lasix 20 mg Tablet sodium bicarbonate 650 mg Tablet famotidine 20 mg tablet 20 mg PO DAILY sennosides [senna] 8.6 mg Tablet 8.6 mg PO DAILY PRN (Reason: Constipation) albuterol sulfate 2.5 mg /3 mL (0.083 %) Solution For Nebulization 2.5 mg inhalation Q2H PRN (Reason: Shortness Of Breath) polyethylene glycol 3350 [Miralax] 17 gram Powder In Packet 17 g PO DAILY cetirizine [Zyrtec] 10 mg Tablet 10 mg PO DAILY tizanidine 4 mg Tablet 8 mg PO TID ondansetron HCl 8 mg Tablet 8 mg PO Q6H PRN (Reason: Nausea And Vomiting) lorazepam [Ativan] 0.5 mg Tablet 0.5 mg PO TID PRN (Reason: Anxiety) calcium carbonate [Tums] 200 mg calcium (500 mg) Tablet,Chewable 400 mg PO TID PRN (Reason: Heartburn) docusate sodium [Colace] 100 mg Capsule 100 mg PO BID ergocalciferol (vitamin D2) [Vitamin D2] 1,250 mcg (50,000 unit) Capsule 50,000 unit PO Q7D Culturelle 10 billion cell Capsule 1 cap PO BID erythromycin 250 mg capsule,delayed release(DR/EC) 250 mg PO QID cholecalciferol (vitamin D3) [Vitamin D3] 10 mcg (400 unit) Capsule 800 unit PO DAILY duloxetine [Cymbalta] 30 mg Capsule,Delayed Release(Dr/Ec) 30 mg PO DAILY levalbuterol tartrate [Xopenex HFA] 45 mcg/actuation Hfa Aerosol Inhaler 2 puff INHALATION QID PRN (Reason: Shortness Of Breath) pregabalin [Lyrica] 50 mg Capsule 50 mg PO BID Chloraseptic Sore Throat 6-10 mg Lozenge 1 haylie PO Q4H PRN (Reason: Sore Throat) oxycodone 10 mg Tablet 10 mg PO Q4H PRN (Reason: Pain) Eliquis 5 mg Tablet 5 mg PO BID Movantik 25 mg Tablet 25 mg PO QAM Rx Instructions: must be taken on empty stomach; no food 1 hr after or 2-3 hrs before dose hydrocortisone 0.5 % Cream 1 applic TOPICAL BID PRN (Reason: Rash) Rx Instructions: to lower back and sides as needed for rash sodium chloride 0.9 % (flush) [Normal Saline Flush] Syringe See Rx Instructions .ROUTE .COMPLEX Rx Instructions: 10 ml iv every shift to picc line in left arm for maint patency amlodipine 10 mg tablet 10 mg PO DAILY Qty: 30 0RF Tylenol 325 mg Tablet 650 mg PO Q6H PRN (Reason: pain/fever) Eye Drops (with povidone) 0.05-0.1-1-1 % Drops 2 drp ophthalmic (eye) Q4H PRN (Reason: itchy red eyes) doxycycline monohydrate 100 mg Tablet 100 mg PO BID Qty: 6 0RF sodium bicarbonate 650 mg Tablet 650 mg PO DAILY Qty: 60 2RF hydralazine 25 mg tablet 25 mg PO TID Qty: 90 4RF Lasix 20 mg tablet 20 mg PO DAILY PRN (Reason: Shortness of breath, weight gain more than 3 pound) Qty: 10 0RF Rx Instructions: On as-needed basis depending on shortness of breath fluid congestion Bactrim DS 800-160 mg tablet 1 tab PO DAILY 7 Days Qty: 14 0RF Discharge Orders: Discharge ED (Routine); Ordered 11/26/22 Ordered By: Pancho Reeder Patient Instructions: Hyponatremia (ED), Purpura (ED) Activity Restrictions/Additional Instructions: Case management has been consulted to help with the referral process to dermatology. They usually contact you within 24 to 48 hours, if you have not heard from them within 72 hours please feel free to contact them. Otherwise follow-up with your family doctor in the next 7 days as needed. Coding Level of Care Code ED Polishing Machine Operator Helper for Thomas Martines
[2022-11-26 21:52] LABS: Basophils % 0.1 %; Eosinophils % 0.5 %; Hematocrit 31.4 % (37.0-47.0); Hemoglobin 9.9 g/dL (11.5-15.3); Lymphocytes # 1.4 10^3/uL (0.8-4.8); Lymphocytes % 18.9 %; Mean Corpuscular HGB Conc 31.5 g/dL (30.0-36.0); Mean Corpuscular Hemoglobin 26.4 pg (28.0-34.0); Mean Corpuscular Volume 83.7 fl (81-99); Mean Platelet Volume 9.4 fL (7.4-10.4); Monocytes # 0.2 10^3/uL (0.2-0.9); Monocytes % 3.1 %; Neutrophils # 5.62 10^3/uL (1.8-7.7); Neutrophils % 76.4 %; Nucleated Red Blood Cells % 0 %; Platelet Count 610 10^3/cmm (130-400); Red Blood Count 3.75 10^6/uL (4.1-5.3); Red Cell Distribution Width 16.8 % (12.1-15.1); White Blood Count 7.4 10^3/uL (4.0-10.0)
[2022-11-26 22:09] LABS: INR 1.97 (0.8-1.2)
[2022-11-26 22:14] LABS: Alanine Aminotransferase < 5 U/L (0-33); Albumin Level 2.7 g/dL (3.5-5.2); Alkaline Phosphatase 105 U/L (35-105); Anion Gap 13.5 (5-19); Aspartate Amino Transferase 11 U/L (0-32); Blood Urea Nitrogen 9 mg/dL (6-20); Calcium 8.3 mg/dL (8.5-10.5); Carbon Dioxide 23 mmol/L (22-29); Chloride 93 mmol/L (98-107); Globulin 3.8 g/dL (1.3-4.6); Glomerular Filtration Rate 113.8 mL/min (90-130); Glucose 105 mg/dL (65-115); Osmolality Calculated 259 mOsm/kg (285-295); Potassium 4.5 mmol/L (3.5-5.1); Sodium 125 mmol/L (136-145); Total Bilirubin 0.2 mg/dL (0.15-1.2); Total Protein 6.5 g/dL (6.6-8.7)
--- NOTE | 2022-11-26 22:46 | XRR_ITS ---
PROCEDURE INFORMATION: Exam: XR Chest Exam date and time: 11/26/2022 10:51 PM Age: 36 years old Clinical indication: Fever; Prior surgery; Surgery date: 6+ months; Surgery type: Spine TECHNIQUE: Imaging protocol: Radiologic exam of the chest. Views: 1 view. COMPARISON: CR XR chest 1V portable [id number] 10/31/2022 9:10 AM FINDINGS: Lungs: Interval development of atelectasis versus pneumonia in the lateral right upper lobe. There is linear scarring in the left lower lobe. Pleural spaces: No pleural effusion. No pneumothorax. Heart/Mediastinum: Stable mild enlargement of the cardiac silhouette. Stable mild enlargement of the cardiac silhouette. Mediastinal contours are unremarkable. Bones/joints: Bones are diffusely osteopenic. Postsurgical changes in the cervical spine and upper thoracic spine. Osseous findings are stable. XR/XR chest 1V portable [id number] IMPRESSION: 1. Interval development of atelectasis versus pneumonia in the lateral right upper lobe. Recommend clinical correlation. Recommend followup chest imaging to insure resolution of these findings. 2. Incidental/nonacute findings are listed in the report.
[2022-11-26 23:13] VITALS: RESP 23; O2SAT 94
[2022-11-26] MEDS: HYDROmorphone 1 mg/mL INJ 1 mL 0.5 MG IVP (23:13)
[2022-11-26 23:17] VITALS: BP 115/70; PULSE 103; RESP 16; O2SAT 95
[2022-11-26 23:23] LABS: NT Pro B Type Natriuretic Pept 319 pg/mL (0-125)
--- NOTE | 2022-11-27 00:19 | PC.NURSE ---
Dr Velez has reviewed cxr prior to patient departure.
--- NOTE | 2022-11-27 00:30 | PC.NURSE ---
this RN called discharge report to Lay[facility] at [facility] @[phone]
--- NOTE | 2022-11-27 11:04 | DCPLANNER ---
natural resource manager had message to schedule a follow up appointment for patient with dermatology. natural resource manager is unable to make referrals to dermatology, this referral has to come from patients primary care physician. Patient resides at [facility], case management specialist called the nursing staff an informed the staff that the referral would have to come from patients primary care physician.
--- NOTE | 2022-11-27 11:07 | DCPLANNER ---
ultrasound manager was triggered to call patient due to no primary care physician - patient resides at [facility], she has a primary care physician.
== END 2022-11-27 01:00 | disposition home or self-care (01) ==
PROVIDERS: Emergency Provider Emergency Medicine
DX: D69.2 Other nonthrombocytopenic purpura (principal); E87.1 Hypo-osmolality and hyponatremia; I10 Essential (primary) hypertension; J45.909 Unspecified asthma, uncomplicated; Z79.899 Other long term (current) drug therapy; Z79.01 Long term (current) use of anticoagulants
CPT/HCPCS: 71045; 80053; 83880; 85025; 85610; 86140; 96374; 99284; J1170

== ENCOUNTER 2022-12-06 08:00 | Oncology outpatient (recurring) (ONCR) | payer MEDICARE, MEDICAID, SELFPAY ==
[2022-12-05] VITALS (7 sets, daily range): BP systolic 85–96; BP diastolic 48–64; PULSE 81–95; RESP 18–20; TEMP 36.3–36.8; O2SAT 96–98
[2022-12-05 09:03] LABS: Basophils % 0.2 %; Eosinophils # 0.1 10^3/uL (0.0-0.8); Eosinophils % 1.3 %; Hematocrit 25.8 % (37.0-47.0); Hemoglobin 7.9 g/dL (11.5-15.3); Lymphocytes # 1.4 10^3/uL (0.8-4.8); Lymphocytes % 16.6 %; Mean Corpuscular HGB Conc 30.6 g/dL (30.0-36.0); Mean Corpuscular Hemoglobin 25.6 pg (28.0-34.0); Mean Corpuscular Volume 83.8 fl (81-99); Mean Platelet Volume 9.4 fL (7.4-10.4); Monocytes # 0.6 10^3/uL (0.2-0.9); Monocytes % 7.3 %; Neutrophils # 6.11 10^3/uL (1.8-7.7); Neutrophils % 74.1 %; Nucleated Red Blood Cells % 0 %; Platelet Count 439 10^3/cmm (130-400); Red Blood Count 3.08 10^6/uL (4.1-5.3); Red Cell Distribution Width 17.2 % (12.1-15.1); White Blood Count 8.3 10^3/uL (4.0-10.0)
[2022-12-05 09:31] LABS: Alanine Aminotransferase < 5 U/L (0-33); Albumin Level 2.8 g/dL (3.5-5.2); Alkaline Phosphatase 94 U/L (35-105); Anion Gap 12.9 (5-19); Aspartate Amino Transferase 8 U/L (0-32); Blood Urea Nitrogen 12 mg/dL (6-20); Carbon Dioxide 24 mmol/L (22-29); Chloride 100 mmol/L (98-107); Globulin 3.7 g/dL (1.3-4.6); Glomerular Filtration Rate 140.4 mL/min (90-130); Glucose 155 mg/dL (65-115); Osmolality Calculated 279 mOsm/kg (285-295); Potassium 3.9 mmol/L (3.5-5.1); Sodium 133 mmol/L (136-145); Total Bilirubin 0.2 mg/dL (0.15-1.2); Total Protein 6.5 g/dL (6.6-8.7)
[2022-12-05 11:13] LABS: Iron 19 ug/dL (37-145); Percent Saturation 11.5 % (20-50); Total Iron Binding Capacity 165 mcg/dl; Unsaturated Iron Binding 146 ug/dL (112-347)
[2022-12-05] MEDS: oxyCODONE 5 mg IR Tab/Cap 10 MG PO (12:36)
[2022-12-05] MEDS: diphenhydrAMINE 25 mg Capsule PO (13:09)
[2022-12-05] MEDS: sodium chloride 0.9% 250 mL Bag IV (13:09)
[2022-12-05] MEDS: acetaminophen 325 mg Tablet 650 MG PO (13:09)
[2022-12-06] VITALS (9 sets, daily range): BP systolic 93–119; BP diastolic 61–79; PULSE 78–107; RESP 16–18; TEMP 35.8–37.2; O2SAT 95–98; BMI 22.2
[2022-12-06] MEDS: famotidine 20 mg Tablet PO (08:52)
[2022-12-06] MEDS: diphenhydrAMINE 25 mg Capsule 50 MG PO (08:53)
[2022-12-06] MEDS: sodium chloride 0.9% 250 mL Bag IV (09:06)
[2022-12-06] MEDS: ondansetron 2 mg/ML SDV 2 mL 8 MG IVP (09:07)
[2022-12-06] MEDS: oxyCODONE 5 mg IR Tab/Cap 10 MG PO (11:20)
== END 2022-12-06 23:59 | disposition home or self-care (01) ==
PROVIDERS: Internal Medicine Medical Oncology; PCP Nurse Practitioner Family; Visit Provider Nurse Practitioner
DX: E76.219 Morquio mucopolysaccharidoses, unspecified (principal)
CPT/HCPCS: 36430; 80053; 83540; 83550; 85025; 86850; 86900; 86920; 96365; 96366; 96375; J1322; J2405; J7050; P9040

== ENCOUNTER 2022-12-12 07:50 | Oncology outpatient (recurring) (ONCR) | payer MEDICARE, MEDICAID, SELFPAY ==
[2022-12-12] VITALS (10 sets, daily range): BP systolic 90–109; BP diastolic 54–72; PULSE 79–101; RESP 16–18; TEMP 36.4–37; O2SAT 93–96; BMI 21.9
[2022-12-12] MEDS: sodium chloride 0.9% 500 ML 75 ML IV (08:56)
[2022-12-12 08:57] LABS: Basophils % 0.2 %; Eosinophils % 0.1 %; Hematocrit 30.9 % (37.0-47.0); Hemoglobin 9.6 g/dL (11.5-15.3); Lymphocytes # 0.7 10^3/uL (0.8-4.8); Mean Corpuscular HGB Conc 31.1 g/dL (30.0-36.0); Mean Corpuscular Hemoglobin 26.7 pg (28.0-34.0); Mean Corpuscular Volume 86.1 fl (81-99); Mean Platelet Volume 9.4 fL (7.4-10.4); Monocytes # 0.6 10^3/uL (0.2-0.9); Monocytes % 4.4 %; Neutrophils # 11.75 10^3/uL (1.8-7.7); Neutrophils % 89.8 %; Nucleated Red Blood Cells % 0 %; Platelet Count 564 10^3/cmm (130-400); Red Blood Count 3.59 10^6/uL (4.1-5.3); Red Cell Distribution Width 17.6 % (12.1-15.1); White Blood Count 13.1 10^3/uL (4.0-10.0)
[2022-12-12] MEDS: diphenhydrAMINE 25 mg Capsule 50 MG PO (08:58)
[2022-12-12] MEDS: acetaminophen 325 mg Tablet 650 MG PO (08:58)
[2022-12-12] MEDS: oxyCODONE 5 mg IR Tab/Cap 10 MG PO (08:59)
[2022-12-12] MEDS: famotidine 20 mg Tablet PO (08:59)
[2022-12-12] MEDS: ondansetron 2 mg/ML SDV 2 mL 8 MG IVP (09:03)
[2022-12-12 11:08] LABS: Iron 14 ug/dL (37-145); Percent Saturation 7.7 % (20-50); Total Iron Binding Capacity 181 mcg/dl; Unsaturated Iron Binding 167 ug/dL (112-347)
[2022-12-12] MEDS: LORazepam 0.5 mg Tablet PO (12:33)
== END 2022-12-12 23:59 | disposition home or self-care (01) ==
LOC: ONCMED 07:50
PROVIDERS: Internal Medicine Medical Oncology; PCP Nurse Practitioner Family; Visit Provider Nurse Practitioner
DX: E00-E89 Endocrine, nutritional and metabolic diseases (principal); D50.9 Iron deficiency anemia, unspecified; Z79.899 Other long term (current) drug therapy
CPT/HCPCS: 83540; 83550; 85025; 96375; 96413; 96415; J1322; J2405; J7040; J7050

== ENCOUNTER 2022-12-19 08:00 | Oncology outpatient (recurring) (ONCR) | payer MEDICARE, MEDICAID, SELFPAY ==
[2022-12-19] VITALS (9 sets, daily range): BP systolic 91–109; BP diastolic 58–74; PULSE 82–116; RESP 16–18; TEMP 35.7–37.1; O2SAT 93–98; BMI 21.7
[2022-12-19] MEDS: sodium chloride 0.9% 500 ML 75 ML IV (08:39)
[2022-12-19] MEDS: diphenhydrAMINE 25 mg Capsule 50 MG PO (08:43)
[2022-12-19] MEDS: famotidine 20 mg Tablet PO (08:43)
[2022-12-19] MEDS: ondansetron 2 mg/ML SDV 2 mL 8 MG IVP (08:45)
[2022-12-19] MEDS: LORazepam 0.5 mg Tablet PO (10:57)
== END 2022-12-19 23:59 | disposition home or self-care (01) ==
PROVIDERS: PCP Nurse Practitioner Family; Visit Provider Internal Medicine Medical Oncology
DX: E00-E89 Endocrine, nutritional and metabolic diseases (principal); D50.9 Iron deficiency anemia, unspecified; Z79.899 Other long term (current) drug therapy
CPT/HCPCS: 96365; 96366; 96375; J1322; J2405; J7040; J7050

== ENCOUNTER 2022-12-26 08:05 | Oncology outpatient (recurring) (ONCR) | payer MEDICARE, MEDICAID, SELFPAY ==
[2022-12-26] VITALS (8 sets, daily range): BP systolic 93–137; BP diastolic 70–96; PULSE 88–94; RESP 16–17; TEMP 35.7–36.7; O2SAT 95–97; BMI 20.7
--- NOTE | 2022-12-26 08:47 | PC.PHAR ---
CHANGED DOSE OF VIMIZIM TO 60MG PATIENT WEIGHED 30KG THIS MORNING. SYSTEM IS NOT PICKING UP ON MOST RECENT WEIGHT.
[2022-12-26] MEDS: sodium chloride 0.9% 500 ML 75 ML IV (08:56)
[2022-12-26] MEDS: famotidine 20 mg Tablet PO (09:00)
[2022-12-26] MEDS: diphenhydrAMINE 25 mg Capsule 50 MG PO (09:00)
[2022-12-26] MEDS: ondansetron 2 mg/ML SDV 2 mL 8 MG IVP (09:02)
[2022-12-26] MEDS: LORazepam 0.5 mg Tablet PO (10:12)
== END 2022-12-26 23:59 | disposition home or self-care (01) ==
PROVIDERS: PCP Nurse Practitioner Family; Visit Provider Internal Medicine Medical Oncology
DX: E00-E89 Endocrine, nutritional and metabolic diseases (principal); D50.9 Iron deficiency anemia, unspecified; Z79.899 Other long term (current) drug therapy
CPT/HCPCS: 96365; 96366; 96374; J1322; J2405; J7040; J7050

== ENCOUNTER 2023-01-02 07:53 | Oncology outpatient (recurring) (ONCR) | payer MEDICARE, MEDICAID, SELFPAY ==
[2023-01-02] VITALS (7 sets, daily range): BP systolic 93–106; BP diastolic 65–81; PULSE 16–84; RESP 16–77; TEMP 36.5–37.1; O2SAT 97–99; BMI 21.0
[2023-01-02] MEDS: sodium chloride 0.9% 500 ML 75 ML IV (08:28)
[2023-01-02] MEDS: famotidine 20 mg Tablet PO (08:32)
[2023-01-02] MEDS: diphenhydrAMINE 25 mg Capsule 50 MG PO (08:32)
[2023-01-02] MEDS: ondansetron 2 mg/ML SDV 2 mL 8 MG IVP (08:34)
[2023-01-02] MEDS: LORazepam 0.5 mg Tablet PO (09:37)
== END 2023-01-02 23:59 | disposition home or self-care (01) ==
PROVIDERS: PCP Nurse Practitioner Family; Visit Provider Internal Medicine Medical Oncology
DX: E76.219 Morquio mucopolysaccharidoses, unspecified (principal)
CPT/HCPCS: 96365; 96366; 96374; J1322; J2405; J7040; J7050

== ENCOUNTER 2023-01-09 07:38 | Oncology outpatient (recurring) (ONCR) | payer MEDICARE, MEDICAID, SELFPAY ==
[2023-01-09] VITALS (8 sets, daily range): BP systolic 92–119; BP diastolic 62–86; PULSE 68–93; RESP 16–18; TEMP 35.9–37.1; O2SAT 97–100; BMI 20.5
[2023-01-09] MEDS: ondansetron 2 mg/ML SDV 2 mL 8 MG IVP (09:02)
[2023-01-09] MEDS: sodium chloride 0.9% 500 ML 75 ML IV (09:02)
[2023-01-09] MEDS: diphenhydrAMINE 25 mg Capsule 50 MG PO (09:02)
[2023-01-09] MEDS: famotidine 20 mg Tablet PO (09:03)
== END 2023-01-09 23:59 | disposition home or self-care (01) ==
PROVIDERS: PCP Nurse Practitioner Family; Visit Provider Internal Medicine Medical Oncology
DX: E76.219 Morquio mucopolysaccharidoses, unspecified (principal); Z53.9 Procedure and treatment not carried out, unspecified reason
CPT/HCPCS: 96365; 96366; 96375; J1322; J2405; J7040; J7050

== ENCOUNTER 2023-01-16 08:00 | Oncology outpatient (recurring) (ONCR) | payer MEDICARE, MEDICAID, SELFPAY ==
[2023-01-16] VITALS (8 sets, daily range): BP systolic 87–118; BP diastolic 60–91; PULSE 17–96; RESP 16–96; TEMP 36.3–37; O2SAT 96–98; BMI 20.7
[2023-01-16] MEDS: ondansetron 2 mg/ML SDV 2 mL 8 MG IVP (08:23)
[2023-01-16] MEDS: diphenhydrAMINE 25 mg Capsule 50 MG PO (08:23)
[2023-01-16] MEDS: famotidine 20 mg Tablet PO (08:23)
[2023-01-16] MEDS: sodium chloride 0.9% 500 ML 75 ML IV (08:23)
== END 2023-01-16 23:59 | disposition home or self-care (01) ==
PROVIDERS: PCP Nurse Practitioner Family; Visit Provider Internal Medicine Medical Oncology
DX: E76.219 Morquio mucopolysaccharidoses, unspecified (principal)
CPT/HCPCS: 96365; 96366; 96374; 96375; J1322; J2405; J7040; J7050

== ENCOUNTER 2023-01-23 08:00 | Oncology outpatient (recurring) (ONCR) | payer MEDICARE, MEDICAID, SELFPAY ==
[2023-01-23] VITALS (10 sets, daily range): BP systolic 88–109; BP diastolic 53–67; PULSE 65–84; RESP 16–17; TEMP 36.4–36.9; O2SAT 94–96; BMI 21.3
[2023-01-23] MEDS: sodium chloride 0.9% 500 ML 50 ML IV (09:15)
[2023-01-23] MEDS: ondansetron 2 mg/ML SDV 2 mL 8 MG IVP (09:16)
[2023-01-23] MEDS: famotidine 20 mg Tablet PO (09:16)
[2023-01-23] MEDS: diphenhydrAMINE 25 mg Capsule 50 MG PO (09:16)
== END 2023-01-23 23:59 | disposition home or self-care (01) ==
PROVIDERS: PCP Nurse Practitioner Family; Visit Provider Internal Medicine Medical Oncology
DX: E76.219 Morquio mucopolysaccharidoses, unspecified (principal)
CPT/HCPCS: 96365; 96366; 96374; 96375; J1322; J2405; J7040; J7050

== ENCOUNTER 2023-01-30 08:19 | Oncology outpatient (recurring) (ONCR) | payer MEDICARE, MEDICAID, SELFPAY ==
[2023-01-30] VITALS (8 sets, daily range): BP systolic 102–115; BP diastolic 69–83; PULSE 76–94; RESP 16–17; TEMP 36.2–36.9; O2SAT 97–99; BMI 21.1
[2023-01-30] MEDS: sodium chloride 0.9% 500 ML 75 ML IV (08:51)
[2023-01-30] MEDS: diphenhydrAMINE 25 mg Capsule 50 MG PO (08:55)
[2023-01-30] MEDS: famotidine 20 mg Tablet PO (08:55)
[2023-01-30] MEDS: ondansetron 2 mg/ML SDV 2 mL 8 MG IVP (08:56)
== END 2023-01-30 23:59 | disposition home or self-care (01) ==
PROVIDERS: PCP Nurse Practitioner Family; Visit Provider Internal Medicine Medical Oncology
DX: E76.219 Morquio mucopolysaccharidoses, unspecified (principal)
CPT/HCPCS: 96365; 96366; 96374; 96375; J1322; J2405; J7040; J7050

== ENCOUNTER → 2023-01-31 08:47 | Outpatient (BNVA) | payer MEDICARE, MEDICAID, SELFPAY | PROVIDERS: PCP Nurse Practitioner Family; Visit Provider Specialist | DX: G43.711 Chronic migraine without aura, intractable, with status migrainosus (principal); G95.9 Disease of spinal cord, unspecified; G81.14 Spastic hemiplegia affecting left nondominant side | CPT/HCPCS: 64615; 99213 ==

== ENCOUNTER 2023-02-06 08:00 | Oncology outpatient (recurring) (ONCR) | payer MEDICARE, MEDICAID, SELFPAY ==
[2023-02-06] MEDS: diphenhydrAMINE 25 mg Capsule 50 MG PO (08:44)
[2023-02-06] MEDS: famotidine 20 mg Tablet PO (08:44)
[2023-02-06] MEDS: sodium chloride 0.9% 500 ML 75 ML IV (08:45)
[2023-02-06] MEDS: ondansetron 2 mg/ML SDV 2 mL 8 MG IVP (08:46)
[2023-02-06 08:52] VITALS: BP 100/65; PULSE 67; RESP 18; TEMP 36.6; O2SAT 96
[2023-02-06 08:59] VITALS: RESP 18
[2023-02-06] MEDS: oxyCODONE 5 mg IR Tab/Cap 10 MG PO (08:59)
[2023-02-06 09:10] VITALS: BP 90/59; PULSE 60; RESP 18; TEMP 36.7; O2SAT 96
[2023-02-06 13:33] VITALS: BP 98/66; PULSE 74; RESP 17; TEMP 36.3; O2SAT 96
== END 2023-02-06 23:59 | disposition home or self-care (01) ==
PROVIDERS: PCP Nurse Practitioner Family; Visit Provider Internal Medicine Medical Oncology
DX: G95.9 Disease of spinal cord, unspecified (principal); G81.14 Spastic hemiplegia affecting left nondominant side; G43.711 Chronic migraine without aura, intractable, with status migrainosus; E76.219 Morquio mucopolysaccharidoses, unspecified; Z53.9 Procedure and treatment not carried out, unspecified reason
CPT/HCPCS: 64615; 96375; 96413; 96415; 99213; J1322; J2405; J7040; J7050

== ENCOUNTER 2023-02-13 07:58 | Oncology outpatient (recurring) (ONCR) | payer MEDICARE, MEDICAID, SELFPAY ==
[2023-02-13] VITALS (9 sets, daily range): BP systolic 86–130; BP diastolic 53–84; PULSE 72–80; RESP 16–17; TEMP 36.5–36.9; O2SAT 92–99; BMI 22.6
[2023-02-13] MEDS: famotidine 20 mg Tablet PO (08:52)
[2023-02-13] MEDS: sodium chloride 0.9% 500 ML 75 ML IV (08:52)
[2023-02-13] MEDS: diphenhydrAMINE 25 mg Capsule 50 MG PO (08:52)
[2023-02-13] MEDS: ondansetron 2 mg/ML SDV 2 mL 8 MG IVP (08:56)
== END 2023-02-13 23:59 | disposition home or self-care (01) ==
PROVIDERS: PCP Nurse Practitioner Family; Visit Provider Internal Medicine Medical Oncology
DX: E76.219 Morquio mucopolysaccharidoses, unspecified (principal)
CPT/HCPCS: 96365; 96366; 96374; J1322; J2405; J7040; J7050

== ENCOUNTER 2023-02-21 08:30 | Oncology outpatient (recurring) (ONCR) | payer MEDICARE, MEDICAID, SELFPAY ==
[2023-02-21] VITALS (9 sets, daily range): BP systolic 120–138; BP diastolic 76–95; PULSE 91–103; RESP 16–18; TEMP 36.7–37.4; O2SAT 96–97; BMI 23.5
[2023-02-21] MEDS: sodium chloride 0.9% 500 ML 75 ML IV (09:05)
[2023-02-21] MEDS: diphenhydrAMINE 25 mg Capsule 50 MG PO (09:12)
[2023-02-21] MEDS: ondansetron 2 mg/ML SDV 2 mL 8 MG IVP (09:13)
[2023-02-21] MEDS: famotidine 20 mg Tablet PO (09:13)
[2023-02-21] MEDS: LORazepam 0.5 mg Tablet PO (11:59)
== END 2023-02-21 23:59 | disposition home or self-care (01) ==
PROVIDERS: PCP Nurse Practitioner Family; Visit Provider Internal Medicine Medical Oncology
DX: E76.219 Morquio mucopolysaccharidoses, unspecified (principal)
CPT/HCPCS: 96375; 96413; 96415; J1322; J2405; J7040; J7050

== ENCOUNTER 2023-02-27 08:30 | Oncology outpatient (recurring) (ONCR) | payer MEDICARE, MEDICAID, SELFPAY ==
[2023-02-27] VITALS (8 sets, daily range): BP systolic 104–120; BP diastolic 70–85; PULSE 80–93; RESP 16–18; TEMP 35.1–36.8; O2SAT 93–99; BMI 23.2
[2023-02-27] MEDS: sodium chloride 0.9% 500 ML 75 ML IV (10:04)
[2023-02-27] MEDS: diphenhydrAMINE 25 mg Capsule 50 MG PO (10:05)
[2023-02-27] MEDS: famotidine 20 mg Tablet PO (10:05)
[2023-02-27] MEDS: ondansetron 2 mg/ML SDV 2 mL 8 MG IVP (10:07)
== END 2023-02-27 23:59 | disposition home or self-care (01) ==
PROVIDERS: PCP Nurse Practitioner Family; Visit Provider Internal Medicine Medical Oncology
DX: E76.219 Morquio mucopolysaccharidoses, unspecified (principal)
CPT/HCPCS: 96375; 96413; 96415; J1322; J2405; J7040; J7050

== ENCOUNTER 2023-03-06 08:01 | Oncology outpatient (recurring) (ONCR) | payer MEDICARE, MEDICAID, SELFPAY ==
[2023-03-06] VITALS (8 sets, daily range): BP systolic 94–111; BP diastolic 66–79; PULSE 57–88; RESP 16–17; TEMP 36.3–36.7; O2SAT 94–99
[2023-03-06] MEDS: sodium chloride 0.9% 500 ML 75 ML IV (09:03)
[2023-03-06] MEDS: diphenhydrAMINE 25 mg Capsule 50 MG PO (09:04)
[2023-03-06] MEDS: famotidine 20 mg Tablet PO (09:04)
[2023-03-06] MEDS: ondansetron 2 mg/ML SDV 2 mL 8 MG IVP (09:06)
== END 2023-03-06 23:59 | disposition home or self-care (01) ==
LOC: ONCMED 08:01
PROVIDERS: PCP Nurse Practitioner Family; Visit Provider Internal Medicine Medical Oncology
DX: E76.219 Morquio mucopolysaccharidoses, unspecified
CPT/HCPCS: 96365; 96366; 96375; J1322; J2405; J7040; J7050

== ENCOUNTER 2023-03-13 08:30 | Oncology outpatient (recurring) (ONCR) | payer MEDICARE, MEDICAID, SELFPAY ==
[2023-03-13] VITALS (7 sets, daily range): BP systolic 106–115; BP diastolic 72–84; PULSE 80–101; RESP 16–17; TEMP 36.5–36.9; O2SAT 95–98
[2023-03-13] MEDS: sodium chloride 0.9% 500 ML 75 ML IV (08:40)
[2023-03-13] MEDS: diphenhydrAMINE 25 mg Capsule 50 MG PO (08:40)
[2023-03-13] MEDS: famotidine 20 mg Tablet PO (08:40)
[2023-03-13] MEDS: ondansetron 2 mg/ML SDV 2 mL 8 MG IVP (08:42)
[2023-03-13] MEDS: LORazepam 0.5 mg Tablet PO (09:48)
== END 2023-03-13 23:59 | disposition home or self-care (01) ==
PROVIDERS: PCP Nurse Practitioner Family; Visit Provider Internal Medicine Medical Oncology
DX: E76.219 Morquio mucopolysaccharidoses, unspecified
CPT/HCPCS: 96365; 96366; 96375; J1322; J2405; J7040; J7050

== ENCOUNTER 2023-03-20 08:30 | Oncology outpatient (recurring) (ONCR) | payer MEDICARE, MEDICAID, SELFPAY ==
[2023-03-20] VITALS (7 sets, daily range): BP systolic 108–120; BP diastolic 75–86; PULSE 85–99; RESP 16–17; TEMP 36.4–37.1; O2SAT 95–98
[2023-03-20] MEDS: sodium chloride 0.9% 500 ML 75 ML IV (08:51)
[2023-03-20] MEDS: famotidine 20 mg Tablet PO (08:55)
[2023-03-20] MEDS: diphenhydrAMINE 25 mg Capsule 50 MG PO (08:55)
[2023-03-20] MEDS: ondansetron 2 mg/ML SDV 2 mL 8 MG IVP (08:56)
[2023-03-20] MEDS: [UNRECOGNIZED DRUG - OTHER] IV (09:30)
[2023-03-20] MEDS: SODIUM CHLORIDE 0.9% IV (09:30)
[2023-03-20] MEDS: LORazepam 0.5 mg Tablet PO (11:17)
== END 2023-03-20 23:59 | disposition home or self-care (01) ==
PROVIDERS: PCP Nurse Practitioner Family; Visit Provider Internal Medicine Medical Oncology
DX: E76.219 Morquio mucopolysaccharidoses, unspecified (principal)
CPT/HCPCS: 96365; 96366; 96375; J1322; J2405; J7040; J7050

== ENCOUNTER 2023-03-27 08:30 | Oncology outpatient (recurring) (ONCR) | payer MEDICARE, MEDICAID, SELFPAY ==
[2023-03-27] VITALS (7 sets, daily range): BP systolic 104–124; BP diastolic 71–87; PULSE 71–92; RESP 16–18; TEMP 36.1–36.9; O2SAT 94–98
[2023-03-27] MEDS: sodium chloride 0.9% 500 ML 75 ML IV (08:58)
[2023-03-27] MEDS: famotidine 20 mg Tablet PO (09:02)
[2023-03-27] MEDS: diphenhydrAMINE 25 mg Capsule 50 MG PO (09:02)
[2023-03-27] MEDS: ondansetron 2 mg/ML SDV 2 mL 8 MG IVP (09:03)
[2023-03-27] MEDS: [UNRECOGNIZED DRUG - OTHER] IV (09:17)
[2023-03-27] MEDS: SODIUM CHLORIDE 0.9% IV (09:17)
== END 2023-03-27 23:59 | disposition home or self-care (01) ==
PROVIDERS: PCP Nurse Practitioner Family; Visit Provider Internal Medicine Medical Oncology
DX: E76.219 Morquio mucopolysaccharidoses, unspecified (principal)
CPT/HCPCS: 96365; 96366; 96375; J1322; J2405; J7040; J7050

== ENCOUNTER 2023-04-03 08:00 | Oncology outpatient (recurring) (ONCR) | payer MEDICARE, MEDICAID, SELFPAY ==
[2023-04-03] VITALS (7 sets, daily range): BP systolic 98–136; BP diastolic 68–99; PULSE 74–88; RESP 16–17; TEMP 35.9–36.8; O2SAT 95–99
[2023-04-03] MEDS: famotidine 20 mg Tablet PO (08:48)
[2023-04-03] MEDS: diphenhydrAMINE 25 mg Capsule 50 MG PO (08:48)
[2023-04-03] MEDS: ondansetron 2 mg/ML SDV 2 mL 8 MG IVP (08:53)
[2023-04-03] MEDS: sodium chloride 0.9% 500 ML 75 ML IV (08:53)
[2023-04-03] MEDS: [UNRECOGNIZED DRUG - OTHER] IV (09:10)
[2023-04-03] MEDS: SODIUM CHLORIDE 0.9% IV (09:10)
== END 2023-04-03 23:59 | disposition home or self-care (01) ==
PROVIDERS: PCP Nurse Practitioner Family; Visit Provider Internal Medicine Medical Oncology
DX: E76.219 Morquio mucopolysaccharidoses, unspecified (principal)
CPT/HCPCS: 96365; 96366; 96375; J1322; J2405; J7040; J7050

== ENCOUNTER 2023-04-10 08:04 | Oncology outpatient (recurring) (ONCR) | payer MEDICARE, MEDICAID, SELFPAY ==
[2023-04-10] VITALS (9 sets, daily range): BP systolic 99–125; BP diastolic 67–84; PULSE 85–95; RESP 16–18; TEMP 36.4–36.9; O2SAT 95–97
[2023-04-10] MEDS: famotidine 20 mg Tablet PO (08:44)
[2023-04-10] MEDS: diphenhydrAMINE 25 mg Capsule 50 MG PO (08:45)
[2023-04-10] MEDS: sodium chloride 0.9% 500 ML 75 ML IV (08:49)
[2023-04-10] MEDS: ondansetron 2 mg/ML SDV 2 mL 8 MG IVP (08:49)
[2023-04-10] MEDS: SODIUM CHLORIDE 0.9% IV (09:02)
[2023-04-10] MEDS: [UNRECOGNIZED DRUG - OTHER] IV (09:02)
[2023-04-10] MEDS: LORazepam 0.5 mg Tablet PO (13:02)
== END 2023-04-10 23:59 | disposition home or self-care (01) ==
PROVIDERS: PCP Nurse Practitioner Family; Visit Provider Internal Medicine Medical Oncology
DX: E76.219 Morquio mucopolysaccharidoses, unspecified
CPT/HCPCS: 96365; 96366; 96375; J1322; J2405; J7040; J7050

== ENCOUNTER 2023-04-17 07:55 | Oncology outpatient (recurring) (ONCR) | payer MEDICARE, MEDICAID, SELFPAY ==
[2023-04-17] VITALS (7 sets, daily range): BP systolic 108–120; BP diastolic 73–80; PULSE 76–91; RESP 16–17; TEMP 35.9–36.4; O2SAT 95–99
[2023-04-17] MEDS: sodium chloride 0.9% 500 ML 75 ML IV (09:13)
[2023-04-17] MEDS: diphenhydrAMINE 25 mg Capsule 50 MG PO (09:17)
[2023-04-17] MEDS: famotidine 20 mg Tablet PO (09:17)
[2023-04-17] MEDS: ondansetron 2 mg/ML SDV 2 mL 8 MG IVP (09:17)
[2023-04-17] MEDS: SODIUM CHLORIDE 0.9% IV (09:33)
[2023-04-17] MEDS: [UNRECOGNIZED DRUG - OTHER] IV (09:33)
[2023-04-17] MEDS: LORazepam 0.5 mg Tablet PO (10:37)
== END 2023-04-17 23:59 | disposition home or self-care (01) ==
PROVIDERS: PCP Nurse Practitioner Family; Visit Provider Internal Medicine Medical Oncology
DX: E76.219 Morquio mucopolysaccharidoses, unspecified
CPT/HCPCS: 96365; 96366; 96375; J1322; J2405; J7040; J7050

== ENCOUNTER 2023-04-24 07:55 | Oncology outpatient (recurring) (ONCR) | payer MEDICARE, MEDICAID, SELFPAY ==
[2023-02-13 08:23] VITALS: BMI 22.6
[2023-04-24] VITALS (8 sets, daily range): BP systolic 98–124; BP diastolic 64–88; PULSE 75–99; RESP 16–17; TEMP 36.4–36.9; O2SAT 96–99
[2023-04-24] MEDS: diphenhydrAMINE 25 mg Capsule 50 MG PO (08:40)
[2023-04-24] MEDS: famotidine 20 mg Tablet PO (08:40)
[2023-04-24] MEDS: sodium chloride 0.9% 500 ML 75 ML IV (08:41)
[2023-04-24] MEDS: ondansetron 2 mg/ML SDV 2 mL 8 MG IVP (08:45)
[2023-04-24] MEDS: [UNRECOGNIZED DRUG - OTHER] IV (09:00)
[2023-04-24] MEDS: SODIUM CHLORIDE 0.9% IV (09:00)
[2023-04-24] MEDS: LORazepam 0.5 mg Tablet PO (09:56)
== END 2023-04-24 23:59 | disposition home or self-care (01) ==
PROVIDERS: PCP Nurse Practitioner Family; Visit Provider Internal Medicine Medical Oncology
DX: E76.219 Morquio mucopolysaccharidoses, unspecified (principal)
CPT/HCPCS: 96365; 96366; 96375; J1322; J2405; J7040; J7050

== ENCOUNTER 2023-05-01 07:56 | Oncology outpatient (recurring) (ONCR) | payer MEDICARE, MEDICAID, SELFPAY ==
[2023-05-01] VITALS (7 sets, daily range): BP systolic 107–124; BP diastolic 71–80; PULSE 69–91; RESP 16–17; TEMP 36.3–36.9; O2SAT 95–98
[2023-05-01] MEDS: diphenhydrAMINE 25 mg Capsule 50 MG PO (08:29)
[2023-05-01] MEDS: famotidine 20 mg Tablet PO (08:30)
[2023-05-01] MEDS: sodium chloride 0.9% 500 ML 75 ML IV (08:31)
[2023-05-01] MEDS: ondansetron 2 mg/ML SDV 2 mL 8 MG IVP (08:35)
[2023-05-01] MEDS: [UNRECOGNIZED DRUG - OTHER] IV (08:50)
[2023-05-01] MEDS: SODIUM CHLORIDE 0.9% IV (08:50)
[2023-05-01] MEDS: LORazepam 0.5 mg Tablet PO (13:14)
== END 2023-05-01 23:59 | disposition home or self-care (01) ==
PROVIDERS: PCP Nurse Practitioner Family; Visit Provider Internal Medicine Medical Oncology
DX: E76.219 Morquio mucopolysaccharidoses, unspecified (principal)
CPT/HCPCS: 96365; 96366; 96375; J1322; J2405; J7040; J7050

== ENCOUNTER 2023-05-08 07:56 | Oncology outpatient (recurring) (ONCR) | payer MEDICARE, MEDICAID, SELFPAY ==
[2023-05-08] VITALS (8 sets, daily range): BP systolic 112–128; BP diastolic 72–85; PULSE 70–83; RESP 16–17; TEMP 36.2–36.8; O2SAT 95–98
[2023-05-08] MEDS: sodium chloride 0.9% 500 ML 75 ML IV (08:42)
[2023-05-08] MEDS: ondansetron 2 mg/ML SDV 2 mL 8 MG IVP (08:45)
[2023-05-08] MEDS: diphenhydrAMINE 25 mg Capsule 50 MG PO (08:46)
[2023-05-08] MEDS: famotidine 20 mg Tablet PO (08:47)
[2023-05-08] MEDS: [UNRECOGNIZED DRUG - OTHER] IV (09:00)
[2023-05-08] MEDS: SODIUM CHLORIDE 0.9% IV (09:00)
[2023-05-08] MEDS: LORazepam 0.5 mg Tablet PO (10:24)
== END 2023-05-08 23:59 | disposition home or self-care (01) ==
PROVIDERS: PCP Nurse Practitioner Family; Visit Provider Internal Medicine Medical Oncology
DX: E76.219 Morquio mucopolysaccharidoses, unspecified (principal)
CPT/HCPCS: 96365; 96366; 96375; J1322; J2405; J7040; J7050

== ENCOUNTER → 2023-05-09 11:34 | Outpatient (BNVA) | payer MEDICARE, MEDICAID, SELFPAY | PROVIDERS: PCP Nurse Practitioner Family; Visit Provider Specialist | DX: G81.14 Spastic hemiplegia affecting left nondominant side (principal); F98.8 Other specified behavioral and emotional disorders with onset usually occurring in childhood and adolescence; G43.711 Chronic migraine without aura, intractable, with status migrainosus | CPT/HCPCS: 64615; 99213 ==

== ENCOUNTER 2023-05-15 07:58 | Oncology outpatient (recurring) (ONCR) | payer MEDICARE, MEDICAID, SELFPAY ==
[2023-05-15] VITALS (9 sets, daily range): BP systolic 90–110; BP diastolic 62–76; PULSE 61–73; RESP 16–18; TEMP 36–36.6; O2SAT 90–98
[2023-05-15] MEDS: sodium chloride 0.9% 500 ML 75 ML IV (09:15)
[2023-05-15] MEDS: diphenhydrAMINE 25 mg Capsule 50 MG PO (09:19)
[2023-05-15] MEDS: famotidine 20 mg Tablet PO (09:19)
[2023-05-15] MEDS: ondansetron 2 mg/ML SDV 2 mL 8 MG IVP (09:20)
[2023-05-15] MEDS: [UNRECOGNIZED DRUG - OTHER] IV (09:30)
[2023-05-15] MEDS: SODIUM CHLORIDE 0.9% IV (09:30)
[2023-05-15] MEDS: LORazepam 0.5 mg Tablet PO (13:40)
== END 2023-05-15 23:59 | disposition home or self-care (01) ==
LOC: ONCMED 07:58
PROVIDERS: PCP Nurse Practitioner Family; Visit Provider Internal Medicine Medical Oncology
DX: E76.219 Morquio mucopolysaccharidoses, unspecified (principal)
CPT/HCPCS: 96365; 96366; 96375; J1322; J2405; J7040; J7050

== ENCOUNTER 2023-05-29 08:22 | Oncology outpatient (recurring) (ONCR) | payer MEDICARE, MEDICAID, SELFPAY ==
[2023-05-29] MEDS: sodium chloride 0.9% 500 ML 75 ML IV (09:12)
[2023-05-29] MEDS: ondansetron 2 mg/ML SDV 2 mL 8 MG IVP (09:13)
[2023-05-29] MEDS: famotidine 20 mg Tablet PO (09:14)
[2023-05-29] MEDS: diphenhydrAMINE 25 mg Capsule 50 MG PO (09:14)
[2023-05-29 09:31] VITALS: BP 98/73; PULSE 96; RESP 18; TEMP 36.6; O2SAT 98
[2023-05-29] MEDS: SODIUM CHLORIDE 0.9% IV (09:36)
[2023-05-29] MEDS: [UNRECOGNIZED DRUG - OTHER] IV (09:36)
[2023-05-29] MEDS: LORazepam 0.5 mg Tablet PO (12:41)
[2023-05-29 18:02] VITALS: BP 100/68; PULSE 65; RESP 18; TEMP 36.4; O2SAT 92
== END 2023-05-29 23:59 | disposition home or self-care (01) ==
PROVIDERS: PCP Nurse Practitioner Family; Visit Provider Internal Medicine Medical Oncology
DX: E76.219 Morquio mucopolysaccharidoses, unspecified (principal)
CPT/HCPCS: 96365; 96366; 96375; J1322; J2405; J7040; J7050

== ENCOUNTER 2023-06-05 07:57 | Oncology outpatient (recurring) (ONCR) | payer MEDICARE, MEDICAID, SELFPAY ==
[2023-06-05] MEDS: diphenhydrAMINE 25 mg Capsule 50 MG PO (08:41)
[2023-06-05] MEDS: famotidine 20 mg Tablet PO (08:41)
[2023-06-05] MEDS: sodium chloride 0.9% 500 ML 75 ML IV (08:43)
[2023-06-05] MEDS: ondansetron 2 mg/ML SDV 2 mL 8 MG IVP (08:54)
[2023-06-05 09:05] VITALS: BP 100/71; PULSE 67; RESP 17; TEMP 36; O2SAT 97
[2023-06-05] MEDS: SODIUM CHLORIDE 0.9% IV (09:05)
[2023-06-05] MEDS: [UNRECOGNIZED DRUG - OTHER] IV (09:05)
[2023-06-05 09:20] VITALS: BP 99/70; PULSE 73; RESP 16; TEMP 36.1; O2SAT 96
[2023-06-05 09:40] VITALS: BP 95/69; PULSE 72; RESP 17; TEMP 36.1; O2SAT 95
[2023-06-05 09:55] VITALS: BP 99/74; PULSE 71; RESP 16; TEMP 36.1; O2SAT 93
[2023-06-05 10:10] VITALS: BP 105/69; PULSE 74; RESP 74; TEMP 36.2; O2SAT 94
== END 2023-06-05 23:59 | disposition home or self-care (01) ==
LOC: ONCMED 07:57
PROVIDERS: PCP Nurse Practitioner Family; Visit Provider Internal Medicine Medical Oncology
DX: E76.219 Morquio mucopolysaccharidoses, unspecified (principal)
CPT/HCPCS: 96365; 96366; 96375; J1322; J2405; J7040; J7050

== ENCOUNTER 2023-06-19 11:28 | Emergency (ER) | payer MEDICARE, MEDICAID, SELFPAY ==
[2023-06-19 11:29] VITALS: BP 116/79; PULSE 36; RESP 16; O2SAT 99
--- NOTE | 2023-06-19 11:40 | XR_ITS ---
WS: [id number] Portable AP upright chest, 06/19/2023 Clinical Data: dyspnea/cough Comparison: Portable chest, 11/26/2022 Findings: No nodules, masses or effusions are seen. There is minimal right pleural reaction unchanged . The heart is slightly enlarged. The pulmonary vascularity is not increased. No pneumonia or pneumot horax is seen. Posterior upper thoracic fusion is seen. There is also posterior fusion of the cervica l spine. Monitor leads are on the chest wall. There is deformity of both humeral heads with osteoarth ritis unchanged. Impression: 1. Right pleural reaction unchanged. 2. Cardiomegaly
--- NOTE | 2023-06-19 11:53 | ED_ITS ---
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 She is on metoprolol if not recently changed the dose complaint: rapid heart beat Associated symptoms: Deny anxiety, cough, diaphoresis, muscle cramps, nausea, paresthesias, pre-syncope, sense of impending doom, short of breath, syncope or vomiting Review of Systems 2 Const: Denies: fever(s), chills or diaphoresis Card: Denies: chest pain, syncope or pre-syncope Resp: Denies: dyspnea GI: Denies: abdominal pain, nausea or vomiting : Denies: dysuria, urinary frequency or urinary urgency Musc: Denies: neck pain, back pain or muscle cramps Skin/Breast: Denies: rash Psych: Denies: anxiety PFSH ED 2 PFSH: Medical History ADD (attention deficit disorder) Chronic migraine without aura, intractable, with status migrainosus Renal tubular acidosis, type 4 Acute hyperkalemia Acute hyponatremia Acute kidney injury Hyponatremia Hyperkalemia Anemia Reactive depression Mucopolysaccharidosis 4 Acute kidney injury Hyperkalemia 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 History of hip fracture History of pulmonary embolism Transaminitis History of transaminitis, presumed secondary to acetaminophen Anxiety and depression Hypertension Asthma Gastroparesis Chronic migraine Chronic musculoskeletal pain Mucopolysaccharidosis 4 Mucopolysaccharidosis 4 Surgical History History of back surgery History of left knee surgery History of right hip replacement History of neck surgery History of total right hip arthroplasty (03/2016) History of total left hip arthroplasty (12/2015) History of surgery on lower extremity (1998) Right leg surgery History of spinal fusion In 2000 and in 2002 Port-A-[address] in place Family History Father Clotting disorder Hyperlipidemia Mother Hyperlipidemia Other Cancer Diabetes Hypertension Stroke Denies family history of CAD (coronary artery disease) Dementia Psychiatric illness Chronic kidney disease (CKD) Suicide Anesthesia complication Bleeding disorder Lung disease Social History Smoking and tobacco/nicotine status: never used tobacco/nicotine Second hand smoke exposure: Yes Alcohol intake: current Alcohol intake frequency: holidays/special occasions only Substance/Drug Use: never Physical Exam 2 Const: GENERAL APPEARANCE: cooperative and comfortable O RIENTATION/CONSCIOUSNESS: Yes awake, Yes oriented to person, Yes oriented to place and Yes oriented to time HENMT: COMMON NORMALS: normocephalic, atraumatic and hearing grossly normal bilaterally HEAD & SCALP: normocephalic and atraumatic Resp: COMMON NORMALS: normal respiratory effort, No retractions, No use of accessory muscles and clear to auscultation bilaterally AUSCULTATION: clear to auscultation bilaterally Cardio: COMMON NORMALS: regular rhythm and No murmurs present (Cardio) R ATE: bradycardic RHYTHM: regular rhythm GI: COMMON NORMALS: Soft to palpation and No hepatosplenomegaly present A USCULTATION: Yes normoactive bowel sounds PALPATION: Yes Soft to palpation, No Tenderness to palpation present (GI), No Guarding due to palpation present (GI) and Yes No hepatosplenomegaly present Extremity: COMMON NORMALS: normal to inspection, capillary refill normal, no clubbing, cyanosis or edema, no calf tenderness and no pedal edema Neuro: SENSORIUM/ORIENTATION: Yes oriented to person, Yes oriented to place and Yes oriented to time Skin: COMMON NORMALS: no rashes or lesions noted GENERAL SKIN EXAM: no rashes or lesions noted Course 2 Vital Signs: Vital signs: Vital Signs Pulse Rate 36 L 06/19/23 11:29 Respiratory Rate 16 06/19/23 11:29 Blood Pressure 116/79 06/19/23 11:29 Pulse Oximetry 99 06/19/23 11:29 Oxygen Delivery Me thod Room Air 06/19/23 11:29 MDM - Arrhythmia/Palpitations Medical Decision Making Decrease metoprolol from 25-12.5 twice daily. Follow-up with primary care within the next week. Discharged back to [facility] center to complete her treatment for today. Medical Records I reviewed the patient's medical records. Lab Data I reviewed the patient's lab results. 06/19/23 11:57 06/19/23 11:57 Laboratory Results WBC 8.66 10^3/uL (3.29-11.43) 06/19/23 11:57 RBC 4.64 10^6/uL (3.85-5.65) 06/19/23 11:57 Hgb 12.20 g/dL (11.27-16.99) 06/19/23 11:57 Hct 39.4 % (36-47) 06/19/23 11:57 MCV 84.9 fl (85-98) L 06/19/23 11:57 MCH 26.3 pg (27-33) L 06/19/23 11:57 MCHC 31.0 g/dL (30-55) 06/19/23 11:57 RDW 15.4 % (12.1-15.1) H 06/19/23 11:57 Plt Count 482 10^3/cmm (157-399) H 06/19/23 11:57 MPV 9.9 fL (7.4-10.4) 06/19/23 11:57 Neut % (Auto) 62.8 % 06/19/23 11:57 Lymph % (Auto) 28.5 % 06/19/23 11:57 [place] % (Auto) 6.5 % 06/19/23 11:57 Eos % (Auto) 1.4 % 06/19/23 11:57 Baso % (Auto) 0.5 % 06/19/23 11:57 Neut # (Auto) 5.44 10^3/uL (1.8-7.7) 06/19/23 11:57 Lymph # (Auto) 2.5 10^3/uL (0.8-4.8) 06/19/23 11:57 Winona # (Auto) 0.6 10^3/uL (0.2-0.9) 06/19/23 11:57 Eos # (Auto) 0.1 10^3/uL (0.0-0.8) 06/19/23 11:57 Baso # (Auto) 0.0 10^3/uL (0.0-0.1) 06/19/23 11:57 Nucleated RBC % (auto) 0 % 06/19/23 11:57 Nucleated RBCs # 0.0 /100WBC 06/19/23 11:57 Sodium 137 mmol/L (136-145) 06/19/23 11:57 Potassium 4.1 mmol/L (3.5-5.1) 06/19/23 11:57 Chloride 103 mmol/L (98-107) 06/19/23 11:57 Carbon Dioxide 23 mmol/L (22-29) 06/19/23 11:57 Anion Gap 15.1 (5-19) 06/19/23 11:57 BUN 8 mg/dL (6-20) 06/19/23 11:57 Creatinine 0.5 mg/dL (0.5-0.9) 06/19/23 11:57 GFR Calculation 139.6 mL/min (90-130) H 06/19/23 11:57 Glucose 104 mg/dL (65-115) 06/19/23 11:57 Calculated Osmolality 283 mOsm/kg (285-295) L 06/19/23 11:57 Calcium 9.1 mg/dL (8.5-10.5) 06/19/23 11:57 Total Bilirubin 0.2 mg/dL (0.15-1.2) 06/19/23 11:57 AST 15 U/L (0-32) 06/19/23 11:57 ALT 7 U/L (0-33) 06/19/23 11:57 Alkaline Phosphatase 122 U/L (35-105) H 06/19/23 11:57 Total Protein 7.9 g/dL (6.6-8.7) 06/19/23 11:57 Albumin 3.5 g/dL (3.5-5.2) 06/19/23 11:57 Globulin 4.4 g/dL (1.3-4.6) 06/19/23 11:57 All radiology interpretation(s) finalized by discharge Discharge Plan Discharge Patient Disposition: Home Clinical Impression: Bradycardia Condition: Stable Prescriptions: New metoprolol tartrate 25 mg tablet 12.5 mg PO BID Qty: 30 0RF Discontinued metoprolol tartrate 25 mg tablet 25 mg PO BID No Action methylphenidate HCl 27 mg tablet extended release 24hr 27 mg PO DAILY 30 Days Qty: 30 0RF Rx Instructions: Do not fill until 06/06/2023 methylphenidate HCl 27 mg tablet extended release 24hr 27 mg PO DAILY 30 Days Qty: 30 0RF Rx Instructions: Do not fill until 07/05/2023 oxycodone 10 mg tablet 10 mg PO Q4H MDD 5 tablets PRN (Reason: Pain) 30 Days Qty: 150 0RF Movantik 25 mg tablet 25 mg PO DAILY potassium chloride 20 mEq tablet extended release 20 meq PO BID albuterol sulfate 2.5 mg /3 mL (0.083 %) Solution For Nebulization 2.5 mg inhalation Q2H PRN (Reason: Shortness Of Breath) tizanidine 4 mg Tablet 8 mg PO TID ondansetron HCl 8 mg Tablet 8 mg PO Q6H PRN (Reason: Nausea And Vomiting) ergocalciferol (vitamin D2) [Vitamin D2] 1,250 mcg (50,000 unit) Capsule 50,000 unit PO Q7D levalbuterol tartrate [Xopenex HFA] 45 mcg/actuation Hfa Aerosol Inhaler 2 puff INHALATION QID PRN (Reason: Shortness Of Breath) pregabalin [Lyrica] 50 mg Capsule 50 mg PO BID Eliquis 5 mg Tablet 5 mg PO BID amlodipine 10 mg tablet 10 mg PO DAILY Qty: 30 0RF sodium bicarbonate 650 mg Tablet 650 mg PO DAILY Qty: 60 2RF hydralazine 25 mg tablet 25 mg PO TID Qty: 90 4RF furosemide [Lasix] 20 mg tablet 20 mg PO DAILY PRN (Reason: Shortness of breath, weight gain more than 3 pound) Qty: 10 0RF Rx Instructions: On as-needed basis depending on shortness of breath fluid congestion sulfamethoxazole-trimethoprim 400-80 mg tablet 1 tab PO BID alprazolam 0.5 mg tablet 0.5 mg PO TID PRN (Reason: Anxiety) famotidine 40 mg tablet 40 mg PO DAILY duloxetine 60 mg capsule,delayed release(DR/EC) 60 mg PO QAM Discharge Orders: Discharge ED (Routine); Ordered 06/19/23 Ordered By: Ochoa Gonzalez Referrals: Francine Singh, EM[employer]OYEE [employer] RN [Primary Care Provider] - Discharge Diet: Usual diet Discharge Activity: Increase activity as tolerated Patient Instructions: Opioid Safety, Pain Management Activity Restrictions/Additional Instructions: Thank you for choosing [facility] for your healthcare needs today. Please realize this is an emergency room and that we are providing you with a medical screening exam and this may not be complete and all inclusive of all the testing and or work up that you may need to determine your ailment or severity of your illness. It is very important that you follow up as instructed or that you return to the Emergency Department should you have concerns or if your condition changes or worsens in any way. You are seen today with low heart rate. Your blood pressure was well-preserved. Recommend you decrease your metoprolol to 12.5 mg twice a day and follow-up with your doctor within the next week. Return if you have further problems Coding Level of Care Code ED Apprentice Jockey for Thomas Martines
--- NOTE | 2023-06-19 12:03 | PC.PHAR ---
PT STATES NO LONGER TAKING ANY OF HER OTC MEDICATIONS DUE TO OUT OF POCKET EXPENSE. PT HAS BEEN HOME FOR 2 WEEKS. PT HAS SEVERAL DUPLICATE ORDERS SO MANY DISCONTINUED MEDS. 06/19/23
[2023-06-19 12:04] LABS: Basophils % 0.5 %; Eosinophils # 0.1 10^3/uL (0.0-0.8); Eosinophils % 1.4 %; Hematocrit 39.4 % (36-47); Lymphocytes # 2.5 10^3/uL (0.8-4.8); Lymphocytes % 28.5 %; Mean Corpuscular Hemoglobin 26.3 pg (27-33); Mean Corpuscular Volume 84.9 fl (85-98); Mean Platelet Volume 9.9 fL (7.4-10.4); Monocytes # 0.6 10^3/uL (0.2-0.9); Monocytes % 6.5 %; Neutrophils # 5.44 10^3/uL (1.8-7.7); Neutrophils % 62.8 %; Nucleated Red Blood Cells % 0 %; Platelet Count 482 10^3/cmm (157-399); Red Blood Count 4.64 10^6/uL (3.85-5.65); Red Cell Distribution Width 15.4 % (12.1-15.1); White Blood Count 8.66 10^3/uL (3.29-11.43)
[2023-06-19 12:19] LABS: Alanine Aminotransferase 7 U/L (0-33); Albumin Level 3.5 g/dL (3.5-5.2); Alkaline Phosphatase 122 U/L (35-105); Anion Gap 15.1 (5-19); Aspartate Amino Transferase 15 U/L (0-32); Blood Urea Nitrogen 8 mg/dL (6-20); Calcium 9.1 mg/dL (8.5-10.5); Carbon Dioxide 23 mmol/L (22-29); Chloride 103 mmol/L (98-107); Globulin 4.4 g/dL (1.3-4.6); Glomerular Filtration Rate 139.6 mL/min (90-130); Glucose 104 mg/dL (65-115); Osmolality Calculated 283 mOsm/kg (285-295); Potassium 4.1 mmol/L (3.5-5.1); Sodium 137 mmol/L (136-145); Total Bilirubin 0.2 mg/dL (0.15-1.2); Total Protein 7.9 g/dL (6.6-8.7)
--- NOTE | 2023-06-19 12:53 | ECG_ITS ---
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 Measurements Intervals Simon Rate: 37 P: 38 NH: 159 QRS: 33 QRSD: 88 T: 16 QT: 484 QTc: 382 Interpretive Statements SINUS BRADYCARDIA MODERATE T-WAVE ABNORMALITY, CONSIDER ANTERIOR ISCHEMIA [-0.1+ mV T-WAVE IN V3/V4] Compared to ECG 06/19/2023 10:09:13 Sinus arrhythmia no longer present T-wave abnormality still present Possible ischemia still present Electronically Signed On 06-19-2023 15:47:12 PULMONOLOGIST by Santos Piedra M.D. [email or web address] systemBrisbane Materials [email or web address] health [id number] f
== END 2023-06-19 13:23 | disposition home or self-care (01) ==
PROVIDERS: Emergency Provider Family Medicine; PCP Nurse Practitioner Family
DX: R00.1 Bradycardia, unspecified (principal); Z79.01 Long term (current) use of anticoagulants; Z77.22 Contact with and (suspected) exposure to environmental tobacco smoke (acute) (chronic); I10 Essential (primary) hypertension
CPT/HCPCS: 36415; 71045; 80053; 85025; 93005; 99285

== ENCOUNTER 2023-06-19 13:34 | Oncology outpatient (recurring) (ONCR) | payer MEDICARE, MEDICAID, SELFPAY ==
[2023-06-19] VITALS (13 sets, daily range): BP systolic 109–129; BP diastolic 71–86; PULSE 32–61; RESP 16–18; TEMP 35.7–36.4; O2SAT 94–99
[2023-06-19] MEDS: famotidine 20 mg Tablet PO (09:24)
[2023-06-19] MEDS: diphenhydrAMINE 25 mg Capsule 50 MG PO (09:24)
[2023-06-19] MEDS: sodium chloride 0.9% 500 ML 75 ML IV (09:24)
[2023-06-19] MEDS: ondansetron 2 mg/ML SDV 2 mL 8 MG IVP (09:25)
--- NOTE | 2023-06-19 09:59 | ECG_ITS ---
[facility] Test Date: 2023-06-19 Pat Name: Elisa Campbell Department: Room: Gender: Female Bowl Sander: : 1985 Requested By: Leon Mota Order Number: [id number] Estrada MD: Santos Piedra M.D. Measurements Intervals [place] Rate: 33 P: 38 AK: 134 QRS: 56 QRSD: 94 T: 44 QT: 524 QTc: 393 Interpretive Statements SINUS BRADYCARDIA WITH SINUS ARRHYTHMIA MODERATE T-WAVE ABNORMALITY, CONSIDER ANTERIOR ISCHEMIA [-0.1+ mV T-WAVE IN V3/V4] Compared to ECG 10/17/2022 08:17:44 Possible ischemia now present Sinus tachycardia no longer present T-wave abnormality still present Electronically Signed On 06-19-2023 15:47:31 HAND HOSE CUTTER by Santos Piedra M.D. [id number]
--- NOTE | 2023-06-19 11:23 | PC.NURSE ---
Dr. Ramirez at bedside, assessed patient and orders for patient to be taken to ER for further evaluation due to bradycardia. patient verbalized understanding and taken to ER via wheelchair by Cara Mitchell LPN. IV left in place.
[2023-06-19] MEDS: sodium chloride 0.9% 500 ML 100 ML IV (13:36)
[2023-06-19] MEDS: SODIUM CHLORIDE 0.9% IV (13:50)
[2023-06-19] MEDS: [UNRECOGNIZED DRUG - OTHER] IV (13:50)
[2023-06-19] MEDS: oxyCODONE 5 mg IR Tab/Cap 10 MG PO (15:50)
== END 2023-06-19 23:59 | disposition home or self-care (01) ==
PROVIDERS: PCP Nurse Practitioner Family; Visit Provider Internal Medicine Medical Oncology
DX: Z53.9 Procedure and treatment not carried out, unspecified reason (principal); E76.219 Morquio mucopolysaccharidoses, unspecified
CPT/HCPCS: 93005; 96365; 96366; 96375; A4222; J1322; J2405; J7040; J7050

== ENCOUNTER 2023-06-26 10:20 | Oncology outpatient (recurring) (ONCR) | payer MEDICARE, MEDICAID, SELFPAY ==
[2023-06-26] VITALS (9 sets, daily range): BP systolic 131–155; BP diastolic 66–102; PULSE 54–76; RESP 16; TEMP 36.4–37.1; O2SAT 95–98
[2023-06-26] MEDS: diphenhydrAMINE 25 mg Capsule 50 MG PO (11:00)
[2023-06-26] MEDS: famotidine 20 mg Tablet PO (11:00)
[2023-06-26] MEDS: sodium chloride 0.9% 500 ML 75 ML IV (11:02)
[2023-06-26] MEDS: ondansetron 2 mg/ML SDV 2 mL 8 MG IVP (11:07)
[2023-06-26] MEDS: oxyCODONE 5 mg IR Tab/Cap 10 MG PO (11:15)
[2023-06-26] MEDS: SODIUM CHLORIDE 0.9% IV (11:25)
[2023-06-26] MEDS: [UNRECOGNIZED DRUG - OTHER] IV (11:25)
[2023-06-26] MEDS: LORazepam 0.5 mg Tablet PO (12:53)
== END 2023-06-26 23:59 | disposition home or self-care (01) ==
PROVIDERS: PCP Nurse Practitioner Family; Visit Provider Internal Medicine Medical Oncology
DX: E76.219 Morquio mucopolysaccharidoses, unspecified
CPT/HCPCS: 96365; 96366; 96375; J1322; J2405; J7040; J7050

== ENCOUNTER 2023-07-04 07:51 | Oncology outpatient (recurring) (ONCR) | payer MEDICARE, MEDICAID, SELFPAY ==
[2023-07-04 08:04] VITALS: BP 125/86; PULSE 71; RESP 16; TEMP 36.3; O2SAT 94
[2023-07-04] MEDS: diphenhydrAMINE 25 mg Capsule 50 MG PO (08:28)
[2023-07-04] MEDS: famotidine 20 mg Tablet PO (08:28)
[2023-07-04] MEDS: ondansetron 2 mg/ML SDV 2 mL 8 MG IVP (08:29)
[2023-07-04] MEDS: sodium chloride 0.9% 500 ML 75 ML IV (08:30)
[2023-07-04] MEDS: SODIUM CHLORIDE 0.9% IV (09:08)
[2023-07-04] MEDS: [UNRECOGNIZED DRUG - OTHER] IV (09:08)
[2023-07-04 13:54] VITALS: BP 116/80; PULSE 75; RESP 17; TEMP 36.6; O2SAT 95
== END 2023-07-04 23:59 | disposition home or self-care (01) ==
PROVIDERS: PCP Nurse Practitioner Family; Visit Provider Internal Medicine Medical Oncology
DX: E76.219 Morquio mucopolysaccharidoses, unspecified (principal); Z53.9 Procedure and treatment not carried out, unspecified reason
CPT/HCPCS: 96365; 96366; 96375; A4222; J1322; J2405; J7040; J7050

== ENCOUNTER 2023-07-10 07:46 | Oncology outpatient (recurring) (ONCR) | payer MEDICARE, MEDICAID, SELFPAY ==
[2023-07-10] MEDS: diphenhydrAMINE 25 mg Capsule 50 MG PO (08:21)
[2023-07-10] MEDS: famotidine 20 mg Tablet PO (08:22)
[2023-07-10] MEDS: sodium chloride 0.9% 500 ML 75 ML IV (08:30)
[2023-07-10] MEDS: ondansetron 2 mg/ML SDV 2 mL 8 MG IVP (08:32)
[2023-07-10] MEDS: [UNRECOGNIZED DRUG - OTHER] IV (08:45)
[2023-07-10] MEDS: SODIUM CHLORIDE 0.9% IV (08:45)
[2023-07-10 08:50] VITALS: BP 115/78; PULSE 74; RESP 18; TEMP 37; O2SAT 96
[2023-07-10 09:05] VITALS: BP 120/74; PULSE 77; RESP 16; TEMP 36.6; O2SAT 96
[2023-07-10 09:20] VITALS: BP 121/74; TEMP 36.7; O2SAT 96
[2023-07-10 09:35] VITALS: BP 121/74; PULSE 77; RESP 18; TEMP 37; O2SAT 96
[2023-07-10 09:50] VITALS: BP 111/77; PULSE 78; RESP 18; TEMP 36.7; O2SAT 94
== END 2023-07-10 23:59 | disposition home or self-care (01) ==
LOC: ONCMED 07:47
PROVIDERS: PCP Nurse Practitioner Family; Visit Provider Internal Medicine Medical Oncology
DX: E76.219 Morquio mucopolysaccharidoses, unspecified
CPT/HCPCS: 96365; 96366; 96375; J1322; J2405; J7040; J7050

== ENCOUNTER 2023-07-17 07:43 | Oncology outpatient (recurring) (ONCR) | payer MEDICARE, MEDICAID, SELFPAY ==
[2023-07-17] VITALS (8 sets, daily range): BP systolic 110–125; BP diastolic 70–83; PULSE 63–93; RESP 16–18; TEMP 36.4–37; O2SAT 96–99
[2023-07-17] MEDS: ondansetron 2 mg/ML SDV 2 mL 8 MG IVP (08:39)
[2023-07-17] MEDS: diphenhydrAMINE 25 mg Capsule 50 MG PO (08:39)
[2023-07-17] MEDS: famotidine 20 mg Tablet PO (08:39)
[2023-07-17] MEDS: sodium chloride 0.9% 500 ML 35 ML IV (08:40)
[2023-07-17] MEDS: SODIUM CHLORIDE 0.9% IV (08:54)
[2023-07-17] MEDS: [UNRECOGNIZED DRUG - OTHER] IV (08:54)
[2023-07-17] MEDS: LORazepam 0.5 mg Tablet PO (12:43)
== END 2023-07-17 23:59 | disposition home or self-care (01) ==
LOC: ONCMED 07:44
PROVIDERS: PCP Nurse Practitioner Family; Visit Provider Internal Medicine Medical Oncology
DX: E76.219 Morquio mucopolysaccharidoses, unspecified
CPT/HCPCS: 96365; 96366; 96375; J1322; J2405; J7040; J7050

== ENCOUNTER 2023-07-24 07:58 | Oncology outpatient (recurring) (ONCR) | payer MEDICARE, MEDICAID, SELFPAY ==
[2023-07-24 08:18] VITALS: BP 111/71; PULSE 64; RESP 18; TEMP 36.7; O2SAT 96
[2023-07-24] MEDS: diphenhydrAMINE 25 mg Capsule 50 MG PO (08:58)
[2023-07-24] MEDS: ondansetron 2 mg/ML SDV 2 mL 8 MG IVP (08:59)
[2023-07-24] MEDS: famotidine 20 mg Tablet PO (08:59)
[2023-07-24] MEDS: sodium chloride 0.9% 500 ML 75 ML IV (09:00)
[2023-07-24] MEDS: SODIUM CHLORIDE 0.9% IV (09:08)
[2023-07-24] MEDS: [UNRECOGNIZED DRUG - OTHER] IV (09:08)
[2023-07-24 09:10] VITALS: BP 113/77; PULSE 64; RESP 17; TEMP 36.6; O2SAT 95
[2023-07-24 09:25] VITALS: BP 107/70; PULSE 69; RESP 16; TEMP 36.3; O2SAT 94
[2023-07-24 09:45] VITALS: BP 109/74; PULSE 69; RESP 17; TEMP 36.4; O2SAT 94
[2023-07-24 10:30] VITALS: BP 107/68; PULSE 74; RESP 17; TEMP 36.6; O2SAT 96
[2023-07-24] MEDS: LORazepam 0.5 mg Tablet PO (11:53)
[2023-07-24 13:30] VITALS: BP 124/79; PULSE 87; RESP 18; TEMP 36.7; O2SAT 97
== END 2023-07-24 23:59 | disposition home or self-care (01) ==
PROVIDERS: PCP Nurse Practitioner Family; Visit Provider Internal Medicine Medical Oncology
DX: E76.219 Morquio mucopolysaccharidoses, unspecified; Z53.9 Procedure and treatment not carried out, unspecified reason
CPT/HCPCS: 96365; 96366; 96375; A4222; J1322; J2405; J7040; J7050

== ENCOUNTER 2023-07-31 08:01 | Oncology outpatient (recurring) (ONCR) | payer MEDICARE, MEDICAID, SELFPAY ==
[2023-07-31] VITALS (7 sets, daily range): BP systolic 108–142; BP diastolic 71–100; PULSE 77–106; RESP 16–17; TEMP 36.1–36.7; O2SAT 96–98
[2023-07-31] MEDS: famotidine 20 mg Tablet PO (08:56)
[2023-07-31] MEDS: diphenhydrAMINE 25 mg Capsule 50 MG PO (08:56)
[2023-07-31] MEDS: sodium chloride 0.9% 500 ML 75 ML IV (08:58)
[2023-07-31] MEDS: ondansetron 2 mg/ML SDV 2 mL 8 MG IVP (09:02)
[2023-07-31] MEDS: SODIUM CHLORIDE 0.9% IV (09:20)
[2023-07-31] MEDS: [UNRECOGNIZED DRUG - OTHER] IV (09:20)
[2023-07-31] MEDS: LORazepam 0.5 mg Tablet PO (11:53)
== END 2023-07-31 23:59 | disposition home or self-care (01) ==
PROVIDERS: PCP Nurse Practitioner Family; Visit Provider Internal Medicine Medical Oncology
DX: E76.219 Morquio mucopolysaccharidoses, unspecified (principal)
CPT/HCPCS: 96365; 96366; 96375; A4222; J1322; J2405; J7040; J7050

== ENCOUNTER 2023-08-07 07:45 | Oncology outpatient (recurring) (ONCR) | payer MEDICARE, MEDICAID, SELFPAY ==
[2023-08-07] VITALS (8 sets, daily range): BP systolic 108–138; BP diastolic 70–92; PULSE 81–94; RESP 16; TEMP 36.2–36.8; O2SAT 93–97
[2023-08-07] MEDS: famotidine 20 mg Tablet PO (08:27)
[2023-08-07] MEDS: diphenhydrAMINE 25 mg Capsule 50 MG PO (08:27)
[2023-08-07] MEDS: sodium chloride 0.9% 500 ML 75 ML IV (08:28)
[2023-08-07] MEDS: ondansetron 2 mg/ML SDV 2 mL 8 MG IVP (08:36)
[2023-08-07] MEDS: [UNRECOGNIZED DRUG - OTHER] IV (09:00)
[2023-08-07] MEDS: SODIUM CHLORIDE 0.9% IV (09:00)
[2023-08-07] MEDS: LORazepam 0.5 mg Tablet PO (12:37)
== END 2023-08-07 23:59 | disposition home or self-care (01) ==
PROVIDERS: PCP Nurse Practitioner Family; Visit Provider Internal Medicine Medical Oncology
DX: Z53.9 Procedure and treatment not carried out, unspecified reason (principal); E76.219 Morquio mucopolysaccharidoses, unspecified
CPT/HCPCS: 96365; 96366; 96375; A4222; J1322; J2405; J7040; J7050

== ENCOUNTER → 2023-08-08 12:13 | Outpatient (BNVA) | payer MEDICARE, MEDICAID, SELFPAY | PROVIDERS: PCP Nurse Practitioner Family; Visit Provider Specialist | DX: G81.14 Spastic hemiplegia affecting left nondominant side (principal); G95.9 Disease of spinal cord, unspecified; F98.8 Other specified behavioral and emotional disorders with onset usually occurring in childhood and adolescence; G43.711 Chronic migraine without aura, intractable, with status migrainosus | CPT/HCPCS: 64615; 99213 ==

== ENCOUNTER 2023-08-14 07:46 | Oncology outpatient (recurring) (ONCR) | payer MEDICARE, MEDICAID, SELFPAY ==
[2023-08-14] VITALS (7 sets, daily range): BP systolic 99–129; BP diastolic 65–89; PULSE 75–84; RESP 16–17; TEMP 36.1–36.9; O2SAT 93–98
[2023-08-14] MEDS: famotidine 20 mg Tablet PO (08:45)
[2023-08-14] MEDS: diphenhydrAMINE 25 mg Capsule 50 MG PO (08:46)
[2023-08-14] MEDS: ondansetron 2 mg/ML SDV 2 mL 8 MG IVP (08:52)
[2023-08-14] MEDS: SODIUM CHLORIDE 0.9% IV (08:55)
[2023-08-14] MEDS: [UNRECOGNIZED DRUG - OTHER] IV (08:55)
== END 2023-08-14 23:59 | disposition home or self-care (01) ==
LOC: ONCMED 07:46
PROVIDERS: PCP Nurse Practitioner Family; Visit Provider Internal Medicine Medical Oncology
DX: E76.219 Morquio mucopolysaccharidoses, unspecified
CPT/HCPCS: 96365; 96366; 96375; J1322; J2405; J7050

== ENCOUNTER 2023-08-21 07:58 | Oncology outpatient (recurring) (ONCR) | payer MEDICARE, MEDICAID, SELFPAY ==
[2023-08-21] VITALS (8 sets, daily range): BP systolic 108–135; BP diastolic 72–91; PULSE 74–96; RESP 16–18; TEMP 36.1–36.7; O2SAT 93–98
[2023-08-21] MEDS: diphenhydrAMINE 25 mg Capsule 50 MG PO (08:51)
[2023-08-21] MEDS: famotidine 20 mg Tablet PO (08:52)
[2023-08-21] MEDS: ondansetron 2 mg/ML SDV 2 mL 8 MG IVP (08:53)
[2023-08-21] MEDS: sodium chloride 0.9% 500 ML 75 ML IV (08:58)
[2023-08-21] MEDS: SODIUM CHLORIDE 0.9% IV (09:19)
[2023-08-21] MEDS: [UNRECOGNIZED DRUG - OTHER] IV (09:19)
== END 2023-08-21 23:59 | disposition home or self-care (01) ==
PROVIDERS: PCP Nurse Practitioner Family; Visit Provider Internal Medicine Medical Oncology
DX: E76.219 Morquio mucopolysaccharidoses, unspecified; Z53.9 Procedure and treatment not carried out, unspecified reason
CPT/HCPCS: 96365; 96366; A4222; J1322; J2405; J7040; J7050

== ENCOUNTER 2023-08-28 07:53 | Oncology outpatient (recurring) (ONCR) | payer MEDICAID, SELFPAY ==
[2023-08-28] MEDS: diphenhydrAMINE 25 mg Capsule 50 MG PO (08:35)
[2023-08-28] MEDS: famotidine 20 mg Tablet PO (08:35)
[2023-08-28] MEDS: sodium chloride 0.9% 500 ML 75 ML IV (08:36)
[2023-08-28] MEDS: ondansetron 2 mg/ML SDV 2 mL 8 MG IVP (08:41)
[2023-08-28 09:30] VITALS: BP 108/72; PULSE 74; RESP 16; TEMP 36.4; O2SAT 96
[2023-08-28] MEDS: [UNRECOGNIZED DRUG - OTHER] IV (09:30)
[2023-08-28] MEDS: SODIUM CHLORIDE 0.9% IV (09:30)
[2023-08-28 09:45] VITALS: BP 105/69; PULSE 84; RESP 16; TEMP 36.7; O2SAT 94
[2023-08-28 10:00] VITALS: BP 106/69; PULSE 76; RESP 17; TEMP 36.9; O2SAT 94
[2023-08-28 10:15] VITALS: BP 107/70; PULSE 74; RESP 17; TEMP 36.9; O2SAT 94
[2023-08-28 10:30] VITALS: BP 112/73; PULSE 74; RESP 16; O2SAT 94
[2023-08-28 10:45] VITALS: BP 139/98; PULSE 85; RESP 16; TEMP 36.9; O2SAT 94
== END 2023-08-28 23:59 | disposition home or self-care (01) ==
PROVIDERS: PCP Nurse Practitioner Family; Visit Provider Internal Medicine Medical Oncology
DX: E76.219 Morquio mucopolysaccharidoses, unspecified; Z79.899 Other long term (current) drug therapy; Z95.828 Presence of other vascular implants and grafts
CPT/HCPCS: 96365; 96366; 96375; 99205; A4222; J1322; J2405; J7040; J7050

== ENCOUNTER 2023-09-04 07:39 | Oncology outpatient (recurring) (ONCR) | payer MEDICARE, MEDICAID, SELFPAY ==
[2023-09-04] VITALS (7 sets, daily range): BP systolic 102–138; BP diastolic 64–72; PULSE 81–85; RESP 16; TEMP 36.5–36.7; O2SAT 91–98
[2023-09-04] MEDS: diphenhydrAMINE 25 mg Capsule 50 MG PO (08:32)
[2023-09-04] MEDS: famotidine 20 mg Tablet PO (08:32)
[2023-09-04] MEDS: sodium chloride 0.9% 500 ML 75 ML IV (08:34)
[2023-09-04] MEDS: ondansetron 2 mg/ML SDV 2 mL 8 MG IVP (08:38)
[2023-09-04] MEDS: [UNRECOGNIZED DRUG - OTHER] IV (08:50)
[2023-09-04] MEDS: SODIUM CHLORIDE 0.9% IV (08:50)
== END 2023-09-04 23:59 | disposition home or self-care (01) ==
PROVIDERS: PCP Nurse Practitioner Family; Visit Provider Internal Medicine Medical Oncology
DX: E76.219 Morquio mucopolysaccharidoses, unspecified
CPT/HCPCS: 96365; 96366; 96375; A4222; J1322; J2405; J7040; J7050

== ENCOUNTER 2023-09-11 07:51 | Oncology outpatient (recurring) (ONCR) | payer MEDICARE, MEDICAID, SELFPAY ==
[2023-09-11] VITALS (7 sets, daily range): BP systolic 99–124; BP diastolic 68–85; PULSE 65–87; RESP 16; TEMP 36.2–36.9; O2SAT 92–97
[2023-09-11] MEDS: sodium chloride 0.9% 500 ML 75 ML IV (08:17)
[2023-09-11] MEDS: diphenhydrAMINE 25 mg Capsule 50 MG PO (08:21)
[2023-09-11] MEDS: famotidine 20 mg Tablet PO (08:21)
[2023-09-11] MEDS: ondansetron 2 mg/ML SDV 2 mL 8 MG IVP (08:22)
[2023-09-11] MEDS: [UNRECOGNIZED DRUG - OTHER] IV (08:45)
[2023-09-11] MEDS: SODIUM CHLORIDE 0.9% IV (08:45)
== END 2023-09-11 23:59 | disposition home or self-care (01) ==
PROVIDERS: PCP Nurse Practitioner Family; Visit Provider Internal Medicine Medical Oncology
DX: E76.219 Morquio mucopolysaccharidoses, unspecified; Z53.9 Procedure and treatment not carried out, unspecified reason
CPT/HCPCS: 96365; 96366; 96375; A4222; J1322; J2405; J7040; J7050

== ENCOUNTER 2023-09-18 07:57 | Oncology outpatient (recurring) (ONCR) | payer MEDICARE, MEDICAID, SELFPAY ==
[2023-09-18] VITALS (7 sets, daily range): BP systolic 102–115; BP diastolic 63–77; PULSE 62–77; RESP 16–17; TEMP 36–36.4; O2SAT 92–98
[2023-09-18] MEDS: sodium chloride 0.9% 500 ML 75 ML IV (08:40)
[2023-09-18] MEDS: ondansetron 2 mg/ML SDV 2 mL 8 MG IVP (08:44)
[2023-09-18] MEDS: diphenhydrAMINE 25 mg Capsule 50 MG PO (08:46)
[2023-09-18] MEDS: famotidine 20 mg Tablet PO (08:46)
[2023-09-18] MEDS: SODIUM CHLORIDE 0.9% IV (09:00)
[2023-09-18] MEDS: [UNRECOGNIZED DRUG - OTHER] IV (09:00)
== END 2023-09-18 23:59 | disposition home or self-care (01) ==
LOC: ONCMED 07:57
PROVIDERS: PCP Nurse Practitioner Family; Visit Provider Internal Medicine Medical Oncology
DX: E76.219 Morquio mucopolysaccharidoses, unspecified
CPT/HCPCS: 96365; 96366; 96375; A4222; J1322; J2405; J7040; J7050

== ENCOUNTER 2023-09-23 10:29 | Day surgery (SDC) | payer MEDICARE, MEDICAID, SELFPAY ==
--- NOTE | 2023-09-23 10:35 | P.HPUD_ITS ---
Surgery/Procedure H&P Update DATE OF PROCEDURE: September 23, 2023 DATE H&P PERFORMED: 08/28/23 H&P UPDATE INFORMATION: I have reviewed H&P completed within last 30 days, I have examined patient prior to procedure, No changes to prior documentation and H&P is in [facility] EMR on date indicated PLANNED PROCEDURE: Operation Date: 09/23/23 12:20 Proposed Procedures p Portacath Placement [id number], E76.219(Not Applicable) - David Pham MD
[2023-09-23 10:57] VITALS: BP 140/101; PULSE 88; RESP 18; TEMP 36.7; O2SAT 95
[2023-09-23 11:11] VITALS: BMI 29.2
--- NOTE | 2023-09-23 11:34 | ANES.PREANE2 ---
Pre-Anesthetic Assessment Height/Weight: Height 1.22 m Weight 43.473 kg Temp Pulse Resp BP Pulse Ox O2 Del Method 98.1 F 88 18 140/101 95 Room Air 09/23/23 10:57 09/23/23 10:57 09/23/23 10:57 09/23/23 10:57 09/23/23 10:57 09/23/23 11:07 Operation Date: 09/23/23 12:20 Proposed Procedures p Portacath Placement [id number], E76.219(Not Applicable) - David Pham MD Familial anesthetic complications: none Was Beta Ashley taken within 24 hours: Yes Was Clonidine taken within 24 hours: N/A Last intake: Intake Last Liquid Date 09/22/23 Last Liquid Time 21:00 Last Solid Date 09/22/23 Last Solid Time 21:00 Social No alcohol and No tobacco Exam alert, oriented x 3, clear to auscultation bilaterally and regular rate & rhythm Airway Submandibular: within normal limits Cervical ROM: within normal limits Mallampati: Class III Dentition: full Pulmonary Asthma CV/HEM Hypertension Musc/sk Short stature Neuropsych Headache Anesthetic Plan ASA status: 3 Anesthesia: Choice Medications/Allergies Home Medications Medication Instructions Recorded Confirmed Last Taken Type albuterol sulfate 2.5 mg/3 mL 2.5 mg inhalation Q2H PRN 10/03/22 09/23/23 Unknown History (0.083 %) solution for nebulization Shortness Of Breath apixaban 5 mg tablet (Eliquis) 5 mg PO BID 10/03/22 09/23/23 09/19/23 08:00 History ergocalciferol (vitamin D2) 1,250 50,000 unit PO Q7D 10/03/22 08/28/23 09/26/22 History mcg (50,000 unit) capsule (Vitamin D2) levalbuterol tartrate 45 2 puff inhalation QID PRN 10/03/22 08/28/23 Unknown History mcg/actuation aerosol inhaler Shortness Of Breath (Xopenex HFA) ondansetron HCl 8 mg tablet 8 mg PO Q6H PRN Nausea And Vomiting 10/03/22 08/28/23 Unknown History pregabalin 50 mg capsule (Lyrica) 50 mg PO BID 10/03/22 09/23/23 09/22/23 History tizanidine 4 mg tablet 8 mg PO TID 10/03/22 09/23/23 09/22/23 History amlodipine 10 mg tablet 10 mg PO DAILY #30 tabs 10/04/22 09/23/23 09/23/23 Rx furosemide 20 mg tablet (Lasix) 20 mg PO DAILY PRN Shortness of 10/18/22 09/23/23 09/22/23 Rx breath, weight gain more than 3 pound #10 tabs hydralazine 25 mg tablet 25 mg PO TID #90 tabs 10/18/22 08/28/23 06/19/23 Rx sodium bicarbonate 650 mg tablet 650 mg PO DAILY #60 tabs 10/18/22 09/23/23 09/22/23 Rx naloxegol 25 mg tablet (Movantik) 25 mg PO DAILY 11/26/22 09/23/23 09/22/23 History potassium chloride 20 mEq 20 meq PO BID 11/26/22 09/23/23 09/22/23 History tablet,extended release oxycodone 10 mg tablet 10 mg PO Q4H PRN Pain 30 days #150 06/05/23 09/23/23 09/23/23 Rx tabs alprazolam 0.5 mg tablet 0.5 mg PO TID PRN Anxiety 06/19/23 09/23/23 09/22/23 History duloxetine 60 mg capsule,delayed 60 mg PO QAM 06/19/23 09/23/23 09/23/23 History release famotidine 40 mg tablet 40 mg PO DAILY 06/19/23 09/23/23 09/23/23 History metoprolol tartrate 25 mg tablet 12.5 mg (1/2 x 25 mg) PO BID #30 06/19/23 09/23/23 09/23/23 Rx tabs sulfamethoxazole 400 1 tab PO BID 06/19/23 09/23/23 09/22/23 History mg-trimethoprim 80 mg tablet methylphenidate HCl 27 mg 27 mg PO DAILY 1 month #30 tabs 08/08/23 09/23/23 09/22/23 Rx tablet,extended release 24 hr Allergies Allergy/AdvReac Type Severity Reaction Status Date / Time azithromycin Allergy nausea and Verified 08/28/23 15:11 vomiting gabapentin Allergy slurred Verified 08/28/23 15:03 speech metoclopramide Allergy twitching Verified 08/28/23 15:03 pregabalin [From Lyrica] Allergy ALGY-Hives Verified 08/28/23 15:03 prochlorperazine Allergy hallucinati Verified 08/28/23 15:03 ons tramadol Allergy seizure Verified 08/28/23 15:03 silk tape Allergy ALGY-Redness Uncoded 08/28/23 15:03 of Skin [facility] Anesthesia Medical History ADD (attention deficit disorder) Chronic migraine without aura, intractable, with status migrainosus Renal tubular acidosis, type 4 Acute hyperkalemia Acute hyponatremia Acute kidney injury Hyponatremia Hyperkalemia Anemia Reactive depression Mucopolysaccharidosis 4 Acute kidney injury Hyperkalemia 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 History of hip fracture History of pulmonary embolism Transaminitis History of transaminitis, presumed secondary to acetaminophen Anxiety and depression Hypertension Asthma Gastroparesis Chronic migraine Chronic musculoskeletal pain Mucopolysaccharidosis 4 Mucopolysaccharidosis 4 Surgical History History of back surgery History of left knee surgery History of right hip replacement History of neck surgery History of total right hip arthroplasty (03/2016) History of total left hip arthroplasty (12/2015) History of surgery on lower extremity (1998) Right leg surgery History of spinal fusion In 2000 and in 2002 Port-A-[address] in place Family History Father Clotting disorder Hyperlipidemia Mother Hyperlipidemia Other Cancer Diabetes Hypertension Stroke Denies family history of CAD (coronary artery disease) Dementia Psychiatric illness Chronic kidney disease (CKD) Suicide Anesthesia complication Bleeding disorder Lung disease Social History Smoking and tobacco/nicotine status: never used tobacco/nicotine Second hand smoke exposure: Yes Alcohol intake: current Alcohol intake frequency: holidays/special occasions only Substance/Drug Use: never Female Reproductive History Date of last menstrual period: 09/04/23 Data Anesthesia Cardiac Studies: No Data to Display
[2023-09-23] MEDS: sodium chloride 0.9% 1,000 ML 30 ML IV (11:38)
[2023-09-23] MEDS: ceFAZolin 2,000 MG in sodium chloride 0.9% (plus) 50 ML 100 MG IV (11:47)
[2023-09-23 12:22] VITALS: BP 128/93; PULSE 89; RESP 16; TEMP 36.4; O2SAT 95
--- NOTE | 2023-09-23 12:24 | P.OP_ITS ---
Operative Report Date of procedure: September 23, 2023 Pre-op diagnosis: Mucopolysaccharidosis type IV Post-op diagnosis: Same Post-op findings: Due to patient anatomy, no safe window for access of the IJ vein was identified but on the right or left neck. Therefore we decided to abort the case and patient will receive a referral to vascular surgery for access. Procedure done: Placement of Port-A-Cath (Aborted) Implants: none Specimens removed/disposition: none Surgeon: David Pham MD Professor Of Genetics: KAN OR STaff Estimated blood loss: 0 Brief History: This is a 37-year-old female with history of mucopolysaccharidosis type IV who had previous history of Port-A-Cath in place but it had to be removed due to patient MRSA bacteremia. Patient has not been clear from this and is requesting a new port to be able to receive therapy. I discussed all the risk and benefits of the procedure and documented my preop note. Procedure: I saw the patient in the preoperative area and marked the right upper chest as well as the respective location of the catheter. Patient was taken to the operating room, she was placed in a supine position, I then proceeded to identify the right IJ vein with ultrasound guidance, I was able to identify the pain but a very limited the space was noted between the mandible and the clavicle due to patient body habitus as well as history of previous cervical spine fusion. I also obtained I still fluoroscopy imaging of the chest proceeded to lisa the level of the right atrium. Since I was able to identify the pain we decided to proceed with anesthesia with the house of being able to extend her neck after relaxation from the moderate sedation. Mother anesthesia sedation was given, bilateral neck and upper chest was prepped and draped in the usual sterile fashion. A timeout was conducted. I then proceeded to identify the IJ vein on the right side, while I was able to locate the pain the space between her mandible and clavicle was big enough to just allow the probe but there was no additional space for me to be able to advance the needle into the vein, we attempted repositioning of the patient and increase extension of the neck but was impossible due to the patient body habitus. I also evaluated the left neck but no viable target was noted at this level. Due to patient's safety concerns without an adequate window for safe access to the IJ vein I decided to abort the case. I will provide the patient with a referral to vascular surgery as higher level of expertise will be needed for port placement in this patient. Patient tolerated well the anesthesia and was transferred to the ambulatory surgery unit in stable condition.
[2023-09-23 12:40] VITALS: BP 124/91; PULSE 87; RESP 18; O2SAT 94
--- NOTE | 2023-09-23 13:20 | PC.NURSE ---
Report called to Kate nurse at [facility]
--- NOTE | 2023-09-23 13:46 | ANE.PACU2 ---
Inpatient post-anesthesia follow up: Airway intact: Yes Vital signs: Temperature 97.6 F Pulse Rate 87 Respiratory Rate 18 Blood Pressure 124/91 Pulse Oximetry 94 Oxygen Delivery Me thod Room Air Oxygen Flow Rate Fraction of Inspir ed Oxygen Hydration adequate: Yes Nausea and vomiting: No Pain level: 1 Mental status: Baseline
== END 2023-09-23 13:27 | disposition home or self-care (01) ==
PROVIDERS: PCP Nurse Practitioner Family; Visit Provider Surgery
PROC: (CPT 36558; principal; 2023-09-23 12:10)
DX: E76.3 Mucopolysaccharidosis, unspecified (principal)
CPT/HCPCS: 36558; J0690; J2250; J2704; J3010; J7030

== ENCOUNTER 2023-09-25 08:01 | Oncology outpatient (recurring) (ONCR) | payer MEDICARE, MEDICAID, SELFPAY ==
[2023-09-25] VITALS (8 sets, daily range): BP systolic 104–117; BP diastolic 72–84; PULSE 67–84; RESP 16–17; TEMP 35.7–36.8; O2SAT 92–95
[2023-09-25] MEDS: sodium chloride 0.9% 500 ML 75 ML IV (08:43)
[2023-09-25] MEDS: famotidine 20 mg Tablet PO (08:46)
[2023-09-25] MEDS: diphenhydrAMINE 25 mg Capsule 50 MG PO (08:46)
[2023-09-25] MEDS: ondansetron 2 mg/ML SDV 2 mL 8 MG IVP (08:48)
[2023-09-25] MEDS: [UNRECOGNIZED DRUG - OTHER] IV (09:25)
[2023-09-25] MEDS: SODIUM CHLORIDE 0.9% IV (09:25)
[2023-09-25] MEDS: LORazepam 0.5 mg Tablet PO (11:25)
== END 2023-09-25 23:59 | disposition home or self-care (01) ==
PROVIDERS: PCP Nurse Practitioner Family; Visit Provider Internal Medicine Medical Oncology
DX: E76.219 Morquio mucopolysaccharidoses, unspecified
CPT/HCPCS: 96365; 96366; 96375; A4222; J1322; J2405; J7040; J7050

== ENCOUNTER 2023-10-02 07:43 | Oncology outpatient (recurring) (ONCR) | payer MEDICARE, MEDICAID, SELFPAY ==
[2023-10-02] VITALS (7 sets, daily range): BP systolic 102–146; BP diastolic 69–89; PULSE 63–84; RESP 16–17; TEMP 36–36.8; O2SAT 90–97
[2023-10-02] MEDS: sodium chloride 0.9% 500 ML 75 ML IV (08:20)
[2023-10-02] MEDS: famotidine 20 mg Tablet PO (08:24)
[2023-10-02] MEDS: diphenhydrAMINE 25 mg Capsule 50 MG PO (08:24)
[2023-10-02] MEDS: ondansetron 2 mg/ML SDV 2 mL 8 MG IVP (08:25)
[2023-10-02] MEDS: SODIUM CHLORIDE 0.9% IV (09:00)
[2023-10-02] MEDS: [UNRECOGNIZED DRUG - OTHER] IV (09:00)
== END 2023-10-02 23:59 | disposition home or self-care (01) ==
LOC: ONCMED 07:44
PROVIDERS: PCP Nurse Practitioner Family; Visit Provider Internal Medicine Medical Oncology
DX: E76.219 Morquio mucopolysaccharidoses, unspecified
CPT/HCPCS: 96365; 96375; A4222; J1322; J2405; J7040; J7050

== ENCOUNTER 2023-10-16 07:55 | Oncology outpatient (recurring) (ONCR) | payer MEDICARE, MEDICAID, SELFPAY ==
[2023-10-16] VITALS (9 sets, daily range): BP systolic 104–159; BP diastolic 70–104; PULSE 60–90; RESP 16–18; TEMP 36.5–36.8; O2SAT 95–99
[2023-10-16 08:55] LABS: Basophils # 0.1 10^3/uL (0.0-0.1); Basophils % 0.7 %; Eosinophils # 0.4 10^3/uL (0.0-0.8); Eosinophils % 4.7 %; Hematocrit 37.8 % (36-47); Lymphocytes # 2.3 10^3/uL (0.8-4.8); Lymphocytes % 26.8 %; Mean Corpuscular Hemoglobin 26.8 pg (27-33); Mean Corpuscular Volume 86.5 fl (85-98); Mean Platelet Volume 9.5 fL (7.4-10.4); Monocytes # 0.7 10^3/uL (0.2-0.9); Monocytes % 7.6 %; Neutrophils # 5.11 10^3/uL (1.8-7.7); Nucleated Red Blood Cells % 0 %; Platelet Count 403 10^3/cmm (157-399); Red Blood Count 4.37 10^6/uL (3.85-5.65); Red Cell Distribution Width 14.5 % (12.1-15.1); White Blood Count 8.52 10^3/uL (3.29-11.43)
[2023-10-16] MEDS: diphenhydrAMINE 25 mg Capsule 50 MG PO (09:02)
[2023-10-16] MEDS: famotidine 20 mg Tablet PO (09:02)
[2023-10-16] MEDS: ondansetron 2 mg/ML SDV 2 mL 8 MG IVP (09:05)
[2023-10-16] MEDS: SODIUM CHLORIDE 0.9% IV (09:20)
[2023-10-16] MEDS: [UNRECOGNIZED DRUG - OTHER] IV (09:20)
[2023-10-16 09:35] LABS: Alanine Aminotransferase 7 U/L (0-33); Albumin Level 3.7 g/dL (3.5-5.2); Alkaline Phosphatase 119 U/L (35-105); Anion Gap 16.3 (5-19); Aspartate Amino Transferase 11 U/L (0-32); Blood Urea Nitrogen 16 mg/dL (6-20); Calcium 8.9 mg/dL (8.5-10.5); Carbon Dioxide 24 mmol/L (22-29); Chloride 106 mmol/L (98-107); Creatinine Clr Calc Pharmacy 108.0395; Ferritin 90 ng/mL (15-150); Globulin 3.9 g/dL (1.3-4.6); Glomerular Filtration Rate 139.6 mL/min (90-130); Glucose 95 mg/dL (65-115); Iron 34 ug/dL (37-145); Osmolality Calculated 295 mOsm/kg (285-295); Potassium 4.3 mmol/L (3.5-5.1); Sodium 142 mmol/L (136-145); Thyroid Stimulating Hormone 6.14 uIU/mL (0.27-4.20); Total Bilirubin 0.2 mg/dL (0.15-1.2); Total Iron Binding Capacity 188 mcg/dl; Total Protein 7.6 g/dL (6.6-8.7); Unsaturated Iron Binding 154 ug/dL (112-347)
[2023-10-16] MEDS: LORazepam 0.5 mg Tablet PO (12:13)
== END 2023-10-16 23:59 | disposition home or self-care (01) ==
LOC: ONCMED 07:55
PROVIDERS: PCP Nurse Practitioner Family; Visit Provider Internal Medicine Medical Oncology
DX: E76.219 Morquio mucopolysaccharidoses, unspecified (principal)
CPT/HCPCS: 80053; 82728; 83540; 83550; 84443; 85025; 96365; 96366; 96375; A4222; J1322; J2405; J7050

== ENCOUNTER 2023-10-23 08:10 | Oncology outpatient (recurring) (ONCR) | payer MEDICARE, MEDICAID, SELFPAY ==
[2023-10-23] VITALS (8 sets, daily range): BP systolic 108–138; BP diastolic 78–94; PULSE 96–118; RESP 16–17; TEMP 36.2–37.1; O2SAT 96–99
[2023-10-23] MEDS: sodium chloride 0.9% 500 ML 75 ML IV (09:14)
[2023-10-23] MEDS: famotidine 20 mg Tablet PO (09:14)
[2023-10-23] MEDS: diphenhydrAMINE 25 mg Capsule 50 MG PO (09:14)
[2023-10-23] MEDS: ondansetron 2 mg/ML SDV 2 mL 8 MG IVP (09:15)
[2023-10-23] MEDS: iron sucrose 200 MG in sodium chloride 0.9% (100 ml) 100 ML 220 MG IV (09:37)
[2023-10-23] MEDS: [UNRECOGNIZED DRUG - OTHER] IV (10:35)
[2023-10-23] MEDS: SODIUM CHLORIDE 0.9% IV (10:35)
[2023-10-23] MEDS: LORazepam 0.5 mg Tablet PO (12:07)
== END 2023-10-23 23:59 | disposition home or self-care (01) ==
LOC: ONCMED 08:11
PROVIDERS: PCP Nurse Practitioner Family; Visit Provider Internal Medicine Medical Oncology
DX: D50.9 Iron deficiency anemia, unspecified
CPT/HCPCS: 96365; 96366; 96367; 96375; A4222; J1322; J1756; J2405; J7040; J7050

== ENCOUNTER 2023-10-30 08:00 | Oncology outpatient (recurring) (ONCR) | payer MEDICARE, MEDICAID, SELFPAY ==
[2023-10-30] VITALS (9 sets, daily range): BP systolic 121–136; BP diastolic 81–98; PULSE 76–89; RESP 15–18; TEMP 36.2–36.8; O2SAT 92–98
[2023-10-30] MEDS: sodium chloride 0.9% 500 ML 75 ML IV (08:45)
[2023-10-30] MEDS: famotidine 20 mg Tablet PO (08:47)
[2023-10-30] MEDS: diphenhydrAMINE 25 mg Capsule 50 MG PO (08:47)
[2023-10-30] MEDS: ondansetron 2 mg/ML SDV 2 mL 8 MG IVP (08:49)
[2023-10-30] MEDS: iron sucrose 200 MG in sodium chloride 0.9% (100 ml) 100 ML 220 MG IV (09:17)
[2023-10-30] MEDS: SODIUM CHLORIDE 0.9% IV (10:21)
[2023-10-30] MEDS: [UNRECOGNIZED DRUG - OTHER] IV (10:21)
[2023-10-30] MEDS: LORazepam 0.5 mg Tablet PO (11:09)
== END 2023-11-03 23:59 | disposition home or self-care (01) ==
PROVIDERS: PCP Nurse Practitioner Family; Visit Provider Internal Medicine Medical Oncology
DX: D50.9 Iron deficiency anemia, unspecified
CPT/HCPCS: 96365; 96366; 96367; 96375; A4222; J1322; J1756; J2405; J7040; J7050

== ENCOUNTER 2023-11-27 07:50 | Oncology outpatient (recurring) (ONCR) | payer MEDICARE, MEDICAID, SELFPAY ==
[2023-11-27] VITALS (8 sets, daily range): BP systolic 112–142; BP diastolic 65–92; PULSE 16–84; RESP 16–74; TEMP 36.5–36.9; O2SAT 98–99
[2023-11-27] MEDS: sodium chloride 0.9% 500 ML 75 ML IV (09:22)
[2023-11-27] MEDS: ondansetron 2 mg/ML SDV 2 mL 8 MG IVP (09:23)
[2023-11-27] MEDS: famotidine 20 mg Tablet PO (09:24)
[2023-11-27] MEDS: diphenhydrAMINE 25 mg Capsule 50 MG PO (09:24)
[2023-11-27] MEDS: [UNRECOGNIZED DRUG - OTHER] IV (09:40)
[2023-11-27] MEDS: SODIUM CHLORIDE 0.9% IV (09:40)
== END 2023-11-27 23:59 | disposition home or self-care (01) ==
LOC: ONCMED 07:50
PROVIDERS: PCP Nurse Practitioner Family; Visit Provider Internal Medicine Medical Oncology
DX: E76.219 Morquio mucopolysaccharidoses, unspecified; Z79.899 Other long term (current) drug therapy
CPT/HCPCS: 96365; 96366; 96375; A4222; J1322; J2405; J7040; J7050

== ENCOUNTER 2023-12-04 07:56 | Oncology outpatient (recurring) (ONCR) | payer MEDICARE, MEDICAID, SELFPAY ==
[2023-12-04] VITALS (8 sets, daily range): BP systolic 98–113; BP diastolic 66–81; PULSE 63–82; RESP 16; TEMP 36.1–37.1; O2SAT 90–97
[2023-12-04 08:46] LABS: Basophils # 0.1 10^3/uL (0.0-0.1); Basophils % 0.8 %; Eosinophils # 0.4 10^3/uL (0.0-0.8); Hematocrit 38.7 % (36-47); Lymphocytes # 2.3 10^3/uL (0.8-4.8); Lymphocytes % 25.1 %; Mean Corpuscular HGB Conc 31.8 g/dL (30-55); Mean Corpuscular Hemoglobin 27.5 pg (27-33); Mean Corpuscular Volume 86.4 fl (85-98); Mean Platelet Volume 9.4 fL (7.4-10.4); Monocytes # 0.8 10^3/uL (0.2-0.9); Monocytes % 8.3 %; Neutrophils # 5.55 10^3/uL (1.8-7.7); Neutrophils % 61.2 %; Nucleated Red Blood Cells % 0 %; Platelet Count 449 10^3/cmm (157-399); Red Blood Count 4.48 10^6/uL (3.85-5.65); Red Cell Distribution Width 15.5 % (12.1-15.1); White Blood Count 9.05 10^3/uL (3.29-11.43)
[2023-12-04] MEDS: sodium chloride 0.9% 500 ML 75 ML IV (08:53)
[2023-12-04] MEDS: diphenhydrAMINE 25 mg Capsule 50 MG PO (08:53)
[2023-12-04] MEDS: ondansetron 2 mg/ML SDV 2 mL 8 MG IVP (08:53)
[2023-12-04] MEDS: famotidine 20 mg Tablet PO (08:53)
[2023-12-04 09:02] LABS: Alanine Aminotransferase 12 U/L (0-33); Albumin Level 3.9 g/dL (3.5-5.2); Alkaline Phosphatase 132 U/L (35-105); Anion Gap 14.2 (5-19); Aspartate Amino Transferase 13 U/L (0-32); Blood Urea Nitrogen 13 mg/dL (6-20); Calcium 9.3 mg/dL (8.5-10.5); Carbon Dioxide 27 mmol/L (22-29); Chloride 101 mmol/L (98-107); Globulin 4.5 g/dL (1.3-4.6); Glomerular Filtration Rate 139.6 mL/min (90-130); Glucose 80 mg/dL (65-115); Osmolality Calculated 285 mOsm/kg (285-295); Potassium 4.2 mmol/L (3.5-5.1); Sodium 138 mmol/L (136-145); Total Bilirubin 0.2 mg/dL (0.15-1.2); Total Protein 8.4 g/dL (6.6-8.7)
[2023-12-04] MEDS: [UNRECOGNIZED DRUG - OTHER] IV (09:25)
[2023-12-04] MEDS: SODIUM CHLORIDE 0.9% IV (09:25)
== END 2023-12-04 23:59 | disposition home or self-care (01) ==
LOC: ONCMED 07:56
PROVIDERS: PCP Nurse Practitioner Family; Visit Provider Internal Medicine Medical Oncology
DX: Z79.899 Other long term (current) drug therapy; E76.219 Morquio mucopolysaccharidoses, unspecified
CPT/HCPCS: 80053; 85025; 96365; 96366; 96375; J1322; J2405; J7040; J7050

== ENCOUNTER 2023-12-11 07:42 | Oncology outpatient (recurring) (ONCR) | payer MEDICARE, MEDICAID, SELFPAY ==
[2023-12-11] VITALS (7 sets, daily range): BP systolic 106–122; BP diastolic 67–88; PULSE 62–83; RESP 16; TEMP 36.4–37; O2SAT 95–99
[2023-12-11] MEDS: sodium chloride 0.9% 500 ML 75 ML IV (08:18)
[2023-12-11] MEDS: ondansetron 2 mg/ML SDV 2 mL 8 MG IVP (08:22)
[2023-12-11] MEDS: diphenhydrAMINE 25 mg Capsule 50 MG PO (08:22)
[2023-12-11] MEDS: famotidine 20 mg Tablet PO (08:24)
[2023-12-11] MEDS: [UNRECOGNIZED DRUG - OTHER] IV (08:40)
[2023-12-11] MEDS: SODIUM CHLORIDE 0.9% IV (08:40)
[2023-12-11] MEDS: LORazepam 0.5 mg Tablet PO (09:05)
== END 2023-12-11 23:59 | disposition home or self-care (01) ==
LOC: ONCMED 07:43
PROVIDERS: PCP Nurse Practitioner Family; Visit Provider Internal Medicine Medical Oncology
DX: E76.219 Morquio mucopolysaccharidoses, unspecified; Z79.899 Other long term (current) drug therapy
CPT/HCPCS: 96365; 96366; 96375; J1322; J2405; J7040; J7050

== ENCOUNTER 2023-12-11 07:43 | Oncology outpatient (recurring) (ONCR) | payer MEDICARE, MEDICAID, SELFPAY | END 2023-12-18 08:28 | disposition home or self-care (01) | LOC: ONCMED 07:43 | PROVIDERS: PCP Nurse Practitioner Family; Visit Provider Internal Medicine Medical Oncology | DX: Z53.9 Procedure and treatment not carried out, unspecified reason ==

== ENCOUNTER 2023-12-25 08:00 | Oncology outpatient (recurring) (ONCR) | payer MEDICARE, MEDICAID, SELFPAY ==
[2023-12-18] VITALS (9 sets, daily range): BP systolic 84–115; BP diastolic 51–79; PULSE 57–89; RESP 16–18; TEMP 36.2–36.8; O2SAT 61–98
[2023-12-18] MEDS: diphenhydrAMINE 25 mg Capsule 50 MG PO (08:41)
[2023-12-18] MEDS: sodium chloride 0.9% 500 ML 75 ML IV (08:41)
[2023-12-18] MEDS: famotidine 20 mg Tablet PO (08:41)
[2023-12-18] MEDS: ondansetron 2 mg/ML SDV 2 mL 8 MG IVP (08:42)
[2023-12-18] MEDS: [UNRECOGNIZED DRUG - OTHER] IV (09:10)
[2023-12-18] MEDS: SODIUM CHLORIDE 0.9% IV (09:10)
[2023-12-25] VITALS (8 sets, daily range): BP systolic 103–126; BP diastolic 75–87; PULSE 85–108; RESP 16; TEMP 36.7–37.2; O2SAT 96–100
[2023-12-25] MEDS: sodium chloride 0.9% 500 ML 75 ML IV (08:38)
[2023-12-25] MEDS: famotidine 20 mg Tablet PO (08:38)
[2023-12-25] MEDS: ondansetron 2 mg/ML SDV 2 mL 8 MG IVP (08:59)
[2023-12-25 09:01] LABS: Basophils # 0.1 10^3/uL (0.0-0.1); Basophils % 0.7 %; Eosinophils # 0.4 10^3/uL (0.0-0.8); Eosinophils % 3.5 %; Hematocrit 45.7 % (36-47); Lymphocytes % 27.1 %; Mean Corpuscular HGB Conc 31.9 g/dL (30-55); Mean Corpuscular Hemoglobin 27.3 pg (27-33); Mean Corpuscular Volume 85.6 fl (85-98); Mean Platelet Volume 9.5 fL (7.4-10.4); Monocytes # 0.7 10^3/uL (0.2-0.9); Monocytes % 6.5 %; Neutrophils # 6.74 10^3/uL (1.8-7.7); Neutrophils % 61.8 %; Nucleated Red Blood Cells % 0 %; Platelet Count 461 10^3/cmm (157-399); Red Blood Count 5.34 10^6/uL (3.85-5.65); Red Cell Distribution Width 14.9 % (12.1-15.1); White Blood Count 10.91 10^3/uL (3.29-11.43)
[2023-12-25] MEDS: diphenhydrAMINE 25 mg Capsule 50 MG PO (09:08)
[2023-12-25] MEDS: SODIUM CHLORIDE 0.9% IV (09:20)
[2023-12-25] MEDS: [UNRECOGNIZED DRUG - OTHER] IV (09:20)
[2023-12-25 10:33] LABS: Alanine Aminotransferase 8 U/L (0-33); Albumin Level 4.1 g/dL (3.5-5.2); Alkaline Phosphatase 160 U/L (35-105); Anion Gap 16.5 (5-19); Aspartate Amino Transferase 14 U/L (0-32); Blood Urea Nitrogen 8 mg/dL (6-20); Calcium 9.5 mg/dL (8.5-10.5); Carbon Dioxide 27 mmol/L (22-29); Chloride 97 mmol/L (98-107); Creatinine Clr Calc Pharmacy 112.7936; Ferritin 760 ng/mL (15-150); Globulin 4.5 g/dL (1.3-4.6); Glomerular Filtration Rate 138.8 mL/min (90-130); Glucose 86 mg/dL (65-115); Iron 27 ug/dL (37-145); Osmolality Calculated 280 mOsm/kg (285-295); Percent Saturation 13.1 % (20-50); Potassium 4.5 mmol/L (3.5-5.1); Sodium 136 mmol/L (136-145); Total Bilirubin 0.2 mg/dL (0.15-1.2); Total Iron Binding Capacity 206 mcg/dl; Total Protein 8.6 g/dL (6.6-8.7); Unsaturated Iron Binding 179 ug/dL (112-347)
[2023-12-25] MEDS: LORazepam 0.5 mg Tablet PO (11:49)
== END 2023-12-25 23:59 | disposition home or self-care (01) ==
PROVIDERS: Nurse Practitioner Family; PCP Nurse Practitioner Family; Visit Provider Internal Medicine Medical Oncology
DX: D50.9 Iron deficiency anemia, unspecified (principal); E76.219 Morquio mucopolysaccharidoses, unspecified; Z53.9 Procedure and treatment not carried out, unspecified reason; D50.8 Other iron deficiency anemias; E03.9 Hypothyroidism, unspecified; E05.90 Thyrotoxicosis, unspecified without thyrotoxic crisis or storm
CPT/HCPCS: 80053; 82728; 83540; 83550; 84443; 85025; 96365; 96366; 96375; 99214; J1322; J2405; J7040; J7050

== ENCOUNTER 2024-01-01 07:51 | Oncology outpatient (recurring) (ONCR) | payer MEDICARE, MEDICAID, SELFPAY ==
[2024-01-01] VITALS (8 sets, daily range): BP systolic 96–122; BP diastolic 48–82; PULSE 91–98; RESP 16–18; TEMP 36.4–36.9; O2SAT 94–98
[2024-01-01] MEDS: sodium chloride 0.9% 500 ML 75 ML IV (09:06)
[2024-01-01] MEDS: famotidine 20 mg Tablet PO (09:10)
[2024-01-01] MEDS: diphenhydrAMINE 25 mg Capsule 50 MG PO (09:10)
[2024-01-01] MEDS: ondansetron 2 mg/ML SDV 2 mL 8 MG IVP (09:13)
[2024-01-01] MEDS: [UNRECOGNIZED DRUG - OTHER] IV (09:52)
[2024-01-01] MEDS: SODIUM CHLORIDE 0.9% IV (09:52)
== END 2024-01-01 23:59 | disposition home or self-care (01) ==
LOC: ONCMED 07:51
PROVIDERS: PCP Nurse Practitioner Family; Visit Provider Internal Medicine Medical Oncology
DX: E76.219 Morquio mucopolysaccharidoses, unspecified; Z79.899 Other long term (current) drug therapy
CPT/HCPCS: 96365; 96366; 96375; J1322; J2405; J7040; J7050

== ENCOUNTER 2024-01-08 08:01 | Oncology outpatient (recurring) (ONCR) | payer MEDICARE, MEDICAID, SELFPAY ==
[2024-01-08] VITALS (7 sets, daily range): BP systolic 101–120; BP diastolic 62–82; PULSE 67–100; RESP 16; TEMP 36.3–36.8; O2SAT 95–100
[2024-01-08] MEDS: diphenhydrAMINE 25 mg Capsule 50 MG PO (08:47)
[2024-01-08] MEDS: famotidine 20 mg Tablet PO (08:47)
[2024-01-08] MEDS: sodium chloride 0.9% 500 ML 75 ML IV (08:47)
[2024-01-08] MEDS: ondansetron 2 mg/ML SDV 2 mL 8 MG IVP (08:49)
[2024-01-08] MEDS: [UNRECOGNIZED DRUG - OTHER] IV (09:10)
[2024-01-08] MEDS: SODIUM CHLORIDE 0.9% IV (09:10)
== END 2024-01-08 23:59 | disposition home or self-care (01) ==
LOC: ONCMED 08:02
PROVIDERS: PCP Nurse Practitioner Family; Visit Provider Internal Medicine Medical Oncology
DX: Z79.899 Other long term (current) drug therapy; E76.219 Morquio mucopolysaccharidoses, unspecified
CPT/HCPCS: 96365; 96366; 96375; A4222; J1322; J2405; J7040; J7050

== ENCOUNTER 2024-01-15 07:58 | Oncology outpatient (recurring) (ONCR) | payer MEDICARE, MEDICAID, SELFPAY ==
[2024-01-15] VITALS (7 sets, daily range): BP systolic 98–122; BP diastolic 68–82; PULSE 62–97; RESP 16–18; TEMP 36.2–36.7; O2SAT 96–98
[2024-01-15] MEDS: sodium chloride 0.9% 500 ML 75 ML IV (08:28)
[2024-01-15] MEDS: ondansetron 2 mg/ML SDV 2 mL 8 MG IVP (08:33)
[2024-01-15] MEDS: diphenhydrAMINE 25 mg Capsule 50 MG PO (08:33)
[2024-01-15] MEDS: famotidine 20 mg Tablet PO (08:33)
[2024-01-15] MEDS: SODIUM CHLORIDE 0.9% IV (09:00)
[2024-01-15] MEDS: [UNRECOGNIZED DRUG - OTHER] IV (09:00)
== END 2024-01-15 23:59 | disposition home or self-care (01) ==
LOC: ONCMED 07:58
PROVIDERS: PCP Nurse Practitioner Family; Visit Provider Internal Medicine Medical Oncology
DX: E76.219 Morquio mucopolysaccharidoses, unspecified; Z79.899 Other long term (current) drug therapy
CPT/HCPCS: 96365; 96366; 96375; J1322; J2405; J7040; J7050

== ENCOUNTER 2024-01-22 07:55 | Oncology outpatient (recurring) (ONCR) | payer MEDICARE, MEDICAID, SELFPAY ==
[2024-01-22] VITALS (7 sets, daily range): BP systolic 109–139; BP diastolic 78–88; PULSE 68–105; RESP 16; TEMP 36.3–36.7; O2SAT 98–100; BMI 26.1
[2024-01-22] MEDS: sodium chloride 0.9% 500 ML 75 ML IV (09:02)
[2024-01-22] MEDS: famotidine 20 mg Tablet PO (09:03)
[2024-01-22] MEDS: diphenhydrAMINE 25 mg Capsule 50 MG PO (09:03)
[2024-01-22] MEDS: ondansetron 2 mg/ML SDV 2 mL 8 MG IVP (09:04)
[2024-01-22] MEDS: SODIUM CHLORIDE 0.9% IV (09:25)
[2024-01-22] MEDS: [UNRECOGNIZED DRUG - OTHER] IV (09:25)
== END 2024-01-22 23:59 | disposition home or self-care (01) ==
PROVIDERS: PCP Nurse Practitioner Family; Visit Provider Internal Medicine Medical Oncology
DX: E76.219 Morquio mucopolysaccharidoses, unspecified; Z79.899 Other long term (current) drug therapy
CPT/HCPCS: 96365; 96366; 96375; J1322; J2405; J7040; J7050

== ENCOUNTER 2024-01-29 07:53 | Oncology outpatient (recurring) (ONCR) | payer MEDICARE, MEDICAID, SELFPAY ==
[2024-01-29] VITALS (8 sets, daily range): BP systolic 122–136; BP diastolic 68–90; PULSE 90–106; RESP 16–18; TEMP 36.8–37.1; O2SAT 97–99
[2024-01-29] MEDS: sodium chloride 0.9% 500 ML 75 ML IV (08:32)
[2024-01-29] MEDS: ondansetron 2 mg/ML SDV 2 mL 8 MG IVP (08:33)
[2024-01-29] MEDS: famotidine 20 mg Tablet PO (08:34)
[2024-01-29] MEDS: diphenhydrAMINE 25 mg Capsule 50 MG PO (08:34)
[2024-01-29] MEDS: [UNRECOGNIZED DRUG - OTHER] IV (08:55)
[2024-01-29] MEDS: SODIUM CHLORIDE 0.9% IV (08:55)
[2024-01-29] MEDS: LORazepam 0.5 mg Tablet PO (11:02)
== END 2024-01-29 23:59 | disposition home or self-care (01) ==
LOC: ONCMED 07:54
PROVIDERS: PCP Nurse Practitioner Family; Visit Provider Internal Medicine Medical Oncology
DX: D50.9 Iron deficiency anemia, unspecified (principal); E76.219 Morquio mucopolysaccharidoses, unspecified; Z79.899 Other long term (current) drug therapy
CPT/HCPCS: 96365; 96366; 96375; A4222; J1322; J2405; J7040; J7050

== ENCOUNTER 2024-02-05 08:04 | Oncology outpatient (recurring) (ONCR) | payer MEDICARE, MEDICAID, SELFPAY ==
[2024-02-05] VITALS (7 sets, daily range): BP systolic 112–127; BP diastolic 66–85; PULSE 71–91; RESP 16; TEMP 36.2–36.9; O2SAT 96–100
[2024-02-05] MEDS: sodium chloride 0.9% 500 ML 75 ML IV (08:50)
[2024-02-05] MEDS: diphenhydrAMINE 25 mg Capsule 50 MG PO (08:53)
[2024-02-05] MEDS: famotidine 20 mg Tablet PO (08:55)
[2024-02-05] MEDS: ondansetron 2 mg/ML SDV 2 mL 8 MG IVP (08:56)
[2024-02-05] MEDS: [UNRECOGNIZED DRUG - OTHER] IV (09:30)
[2024-02-05] MEDS: SODIUM CHLORIDE 0.9% IV (09:30)
== END 2024-02-05 23:59 | disposition home or self-care (01) ==
PROVIDERS: PCP Nurse Practitioner Family; Visit Provider Internal Medicine Hematology & Oncology
DX: Z79.899 Other long term (current) drug therapy; E76.219 Morquio mucopolysaccharidoses, unspecified
CPT/HCPCS: 96365; 96366; 96375; A4222; J1322; J2405; J7040; J7050

== ENCOUNTER 2024-02-19 08:05 | Oncology outpatient (recurring) (ONCR) | payer MEDICARE, MEDICAID, SELFPAY ==
[2024-02-19 08:21] VITALS: BMI 26.7
[2024-02-19] MEDS: diphenhydrAMINE 25 mg Capsule 50 MG PO (08:57)
[2024-02-19] MEDS: famotidine 20 mg Tablet PO (08:58)
[2024-02-19] MEDS: sodium chloride 0.9% 500 ML 75 ML IV (08:59)
[2024-02-19] MEDS: ondansetron 2 mg/ML SDV 2 mL 8 MG IVP (08:59)
[2024-02-19 09:27] VITALS: BP 104/72; PULSE 69; RESP 17; TEMP 36.4; O2SAT 96
[2024-02-19] MEDS: [UNRECOGNIZED DRUG - OTHER] 12 MG IV (09:27)
[2024-02-19 09:58] VITALS: BP 106/78; PULSE 71; RESP 16; TEMP 36.7; O2SAT 99
[2024-02-19 10:14] VITALS: BP 111/77; PULSE 71; RESP 16; TEMP 36.6; O2SAT 99
[2024-02-19 10:31] VITALS: BP 111/75; PULSE 76; RESP 16; TEMP -12.3; TEMP 9.9; O2SAT 99
[2024-02-19 10:46] VITALS: BP 111/74; PULSE 78; RESP 16; TEMP 36.1; O2SAT 97
== END 2024-02-19 23:59 | disposition home or self-care (01) ==
PROVIDERS: PCP Nurse Practitioner Family; Visit Provider Internal Medicine Hematology & Oncology
DX: E76.219 Morquio mucopolysaccharidoses, unspecified; Z79.899 Other long term (current) drug therapy
CPT/HCPCS: 96375; 96413; A4222; J1322; J2405; J7040; J7050

== ENCOUNTER 2024-02-26 07:59 | Oncology outpatient (recurring) (ONCR) | payer MEDICARE, MEDICAID, SELFPAY ==
[2024-02-26] VITALS (7 sets, daily range): BP systolic 108–127; BP diastolic 65–85; PULSE 62–80; RESP 16; TEMP 36.2–36.6; O2SAT 95–99
[2024-02-26] MEDS: diphenhydrAMINE 25 mg Capsule 50 MG PO (08:28)
[2024-02-26] MEDS: famotidine 20 mg Tablet PO (08:28)
[2024-02-26] MEDS: ondansetron 2 mg/ML SDV 2 mL 8 MG IVP (08:28)
[2024-02-26] MEDS: sodium chloride 0.9% 500 ML 75 ML IV (08:28)
[2024-02-26] MEDS: [UNRECOGNIZED DRUG - OTHER] 12 MG IV (08:53)
== END 2024-02-26 23:59 | disposition home or self-care (01) ==
LOC: ONCMED 08:00
PROVIDERS: PCP Nurse Practitioner Family; Visit Provider Internal Medicine Hematology & Oncology
DX: D50.9 Iron deficiency anemia, unspecified (principal); E76.219 Morquio mucopolysaccharidoses, unspecified
CPT/HCPCS: 96365; 96366; 96375; A4222; J1322; J2405; J7040; J7050

== ENCOUNTER 2024-03-04 07:57 | Oncology outpatient (recurring) (ONCR) | payer MEDICARE, MEDICAID, SELFPAY ==
[2024-03-04] VITALS (7 sets, daily range): BP systolic 102–136; BP diastolic 65–81; PULSE 81–104; RESP 16; TEMP 35.7–36.8; O2SAT 91–100
[2024-03-04] MEDS: sodium chloride 0.9% 500 ML 75 ML IV (09:07)
[2024-03-04] MEDS: ondansetron 2 mg/ML SDV 2 mL 8 MG IVP (09:10)
[2024-03-04] MEDS: famotidine 20 mg Tablet PO (09:11)
[2024-03-04] MEDS: diphenhydrAMINE 25 mg Capsule 50 MG PO (09:11)
[2024-03-04] MEDS: [UNRECOGNIZED DRUG - OTHER] 12 MG IV (09:35)
== END 2024-03-04 23:59 | disposition home or self-care (01) ==
PROVIDERS: PCP Nurse Practitioner Family; Visit Provider Internal Medicine Hematology & Oncology
DX: D50.9 Iron deficiency anemia, unspecified (principal); E76.219 Morquio mucopolysaccharidoses, unspecified
CPT/HCPCS: 96365; 96366; 96375; A4222; J1322; J2405; J7040; J7050

== ENCOUNTER 2024-03-11 07:59 | Oncology outpatient (recurring) (ONCR) | payer MEDICARE, MEDICAID, SELFPAY ==
[2024-03-11] VITALS (7 sets, daily range): BP systolic 94–125; BP diastolic 67–83; PULSE 65–74; RESP 16; TEMP 36.1–36.9; O2SAT 95–98
[2024-03-11] MEDS: diphenhydrAMINE 25 mg Capsule 50 MG PO (08:33)
[2024-03-11] MEDS: famotidine 20 mg Tablet PO (08:34)
[2024-03-11] MEDS: sodium chloride 0.9% 500 ML 75 ML IV (08:35)
[2024-03-11 08:36] LABS: Basophils # 0.1 10^3/uL (0.0-0.1); Basophils % 0.7 %; Eosinophils # 0.7 10^3/uL (0.0-0.8); Eosinophils % 7.3 %; Hematocrit 43.3 % (36-47); Lymphocytes # 2.8 10^3/uL (0.8-4.8); Lymphocytes % 29.7 %; Mean Corpuscular HGB Conc 31.2 g/dL (30-55); Mean Corpuscular Volume 89.8 fl (85-98); Mean Platelet Volume 9.7 fL (7.4-10.4); Monocytes # 0.7 10^3/uL (0.2-0.9); Monocytes % 7.2 %; Neutrophils % 54.9 %; Nucleated Red Blood Cells % 0 %; Platelet Count 414 10^3/cmm (157-399); Red Blood Count 4.82 10^6/uL (3.85-5.65); Red Cell Distribution Width 14.5 % (12.1-15.1); White Blood Count 9.47 10^3/uL (3.29-11.43)
[2024-03-11] MEDS: ondansetron 2 mg/ML SDV 2 mL 8 MG IVP (08:37)
[2024-03-11] MEDS: [UNRECOGNIZED DRUG - OTHER] 12 MG IV (08:52)
[2024-03-11 09:04] LABS: Alanine Aminotransferase 9 U/L (0-33); Alkaline Phosphatase 135 U/L (35-105); Anion Gap 13.4 (5-19); Aspartate Amino Transferase 13 U/L (0-32); Blood Urea Nitrogen 12 mg/dL (6-20); Calcium 8.9 mg/dL (8.5-10.5); Carbon Dioxide 27 mmol/L (22-29); Chloride 99 mmol/L (98-107); Creatinine Clr Calc Pharmacy 99.5679; Ferritin 473 ng/mL (15-150); Globulin 3.2 g/dL (1.3-4.6); Glomerular Filtration Rate 112.5 mL/min (90-130); Glucose 122 mg/dL (65-115); Osmolality Calculated 281 mOsm/kg (285-295); Potassium 4.4 mmol/L (3.5-5.1); Sodium 135 mmol/L (136-145); Thyroid Stimulating Hormone 2.65 uIU/mL (0.27-4.20); Total Bilirubin 0.3 mg/dL (0.15-1.2); Total Protein 7.2 g/dL (6.6-8.7)
== END 2024-03-11 23:59 | disposition home or self-care (01) ==
PROVIDERS: Nurse Practitioner Family; PCP Nurse Practitioner Family; Visit Provider Internal Medicine Hematology & Oncology
DX: E76.219 Morquio mucopolysaccharidoses, unspecified; D50.8 Other iron deficiency anemias; F98.8 Other specified behavioral and emotional disorders with onset usually occurring in childhood and adolescence; Z79.899 Other long term (current) drug therapy; E03.9 Hypothyroidism, unspecified
CPT/HCPCS: 36415; 80053; 82728; 84443; 85025; 96365; 96366; 96375; 99213; A4222; J1322; J2405; J7040; J7050

== ENCOUNTER → 2024-03-12 11:30 | Outpatient (BNVA) | payer MEDICARE, MEDICAID, SELFPAY | PROVIDERS: PCP Nurse Practitioner Family; Referring Provider Nurse Practitioner Family; Visit Provider Specialist | DX: G81.14 Spastic hemiplegia affecting left nondominant side (principal); G95.9 Disease of spinal cord, unspecified; G43.711 Chronic migraine without aura, intractable, with status migrainosus | CPT/HCPCS: 64615 ==

== ENCOUNTER 2024-03-18 07:58 | Oncology outpatient (recurring) (ONCR) | payer MEDICARE, MEDICAID, SELFPAY ==
[2024-03-18] VITALS (7 sets, daily range): BP systolic 94–113; BP diastolic 59–77; PULSE 58–74; RESP 16–17; TEMP 35.9–36.4; O2SAT 95–99
[2024-03-18] MEDS: sodium chloride 0.9% 500 ML 75 ML IV (08:45)
[2024-03-18] MEDS: ondansetron 2 mg/ML SDV 2 mL 8 MG IVP (08:47)
[2024-03-18] MEDS: diphenhydrAMINE 25 mg Capsule 50 MG PO (08:48)
[2024-03-18] MEDS: famotidine 20 mg Tablet PO (08:50)
[2024-03-18] MEDS: [UNRECOGNIZED DRUG - OTHER] 12 MG IV (09:18)
== END 2024-03-18 23:59 | disposition home or self-care (01) ==
LOC: ONCMED 07:58
PROVIDERS: PCP Nurse Practitioner Family; Visit Provider Internal Medicine Hematology & Oncology
DX: D50.9 Iron deficiency anemia, unspecified (principal); E76.219 Morquio mucopolysaccharidoses, unspecified; D50.8 Other iron deficiency anemias; F98.8 Other specified behavioral and emotional disorders with onset usually occurring in childhood and adolescence; Z79.899 Other long term (current) drug therapy
CPT/HCPCS: 96365; 96366; 96375; J1322; J2405; J7040; J7050

== ENCOUNTER 2024-03-25 07:57 | Oncology outpatient (recurring) (ONCR) | payer MEDICARE, MEDICAID, SELFPAY ==
[2024-03-25] VITALS (7 sets, daily range): BP systolic 106–137; BP diastolic 63–87; PULSE 60–80; RESP 16; TEMP 36–36.6; O2SAT 94–97; BMI 25.7
[2024-03-25] MEDS: sodium chloride 0.9% 500 ML 75 ML IV (08:28)
[2024-03-25] MEDS: ondansetron 2 mg/ML SDV 2 mL 8 MG IVP (08:29)
[2024-03-25] MEDS: diphenhydrAMINE 25 mg Capsule 50 MG PO (08:30)
[2024-03-25] MEDS: famotidine 20 mg Tablet PO (08:30)
[2024-03-25] MEDS: [UNRECOGNIZED DRUG - OTHER] 12 MG IV (08:58)
== END 2024-03-25 23:59 | disposition home or self-care (01) ==
PROVIDERS: PCP Nurse Practitioner Family; Visit Provider Internal Medicine Hematology & Oncology
DX: E76.219 Morquio mucopolysaccharidoses, unspecified; Z79.899 Other long term (current) drug therapy
CPT/HCPCS: 96365; 96366; 96375; J1322; J2405; J7040; J7050

== ENCOUNTER 2024-04-01 08:04 | Oncology outpatient (recurring) (ONCR) | payer MEDICARE, MEDICAID, SELFPAY ==
[2024-04-01] VITALS (8 sets, daily range): BP systolic 102–130; BP diastolic 69–90; PULSE 66–86; RESP 16–17; TEMP 36.2–36.7; O2SAT 95–98
[2024-04-01] MEDS: sodium chloride 0.9% 500 ML 75 ML IV (08:26)
[2024-04-01] MEDS: ondansetron 2 mg/ML SDV 2 mL 8 MG IVP (08:30)
[2024-04-01] MEDS: diphenhydrAMINE 25 mg Capsule 50 MG PO (08:30)
[2024-04-01] MEDS: famotidine 20 mg Tablet PO (08:30)
[2024-04-01] MEDS: [UNRECOGNIZED DRUG - OTHER] 12 MG IV (09:11)
[2024-04-01] MEDS: LORazepam 0.5 mg Tablet PO (11:53)
== END 2024-04-04 23:59 | disposition home or self-care (01) ==
LOC: ONCMED 08:04
PROVIDERS: PCP Nurse Practitioner Family; Visit Provider Internal Medicine Hematology & Oncology
DX: E76.219 Morquio mucopolysaccharidoses, unspecified; D50.8 Other iron deficiency anemias; Z79.899 Other long term (current) drug therapy
CPT/HCPCS: 96365; 96366; 96375; J1322; J2405; J7040; J7050

== ENCOUNTER 2024-04-08 08:03 | Oncology outpatient (recurring) (ONCR) | payer MEDICARE, MEDICAID, SELFPAY ==
[2024-04-08] VITALS (7 sets, daily range): BP systolic 109–129; BP diastolic 68–86; PULSE 59–69; RESP 16–17; TEMP 36.3–36.6; O2SAT 93–98
[2024-04-08 08:37] LABS: Basophils # 0.1 10^3/uL (0.0-0.1); Basophils % 0.7 %; Eosinophils # 0.5 10^3/uL (0.0-0.8); Eosinophils % 5.7 %; Hematocrit 43.5 % (36-47); Lymphocytes # 2.2 10^3/uL (0.8-4.8); Lymphocytes % 26.1 %; Mean Corpuscular HGB Conc 31.5 g/dL (30-55); Mean Corpuscular Hemoglobin 28.7 pg (27-33); Mean Corpuscular Volume 91.2 fl (85-98); Monocytes # 0.5 10^3/uL (0.2-0.9); Monocytes % 6.2 %; Neutrophils # 5.18 10^3/uL (1.8-7.7); Neutrophils % 61.1 %; Nucleated Red Blood Cells % 0 %; Platelet Count 365 10^3/cmm (157-399); Red Blood Count 4.77 10^6/uL (3.85-5.65); Red Cell Distribution Width 14.3 % (12.1-15.1); White Blood Count 8.49 10^3/uL (3.29-11.43)
[2024-04-08 08:51] LABS: Alanine Aminotransferase 6 U/L (0-33); Albumin Level 3.8 g/dL (3.5-5.2); Alkaline Phosphatase 145 U/L (35-105); Aspartate Amino Transferase 12 U/L (0-32); Blood Urea Nitrogen 17 mg/dL (6-20); Calcium 8.9 mg/dL (8.5-10.5); Carbon Dioxide 26 mmol/L (22-29); Chloride 101 mmol/L (98-107); Globulin 3.7 g/dL (1.3-4.6); Glomerular Filtration Rate 138.8 mL/min (90-130); Glucose 125 mg/dL (65-115); Osmolality Calculated 291 mOsm/kg (285-295); Sodium 139 mmol/L (136-145); Total Bilirubin 0.2 mg/dL (0.15-1.2); Total Protein 7.5 g/dL (6.6-8.7)
[2024-04-08 08:53] LABS: Anion Gap 16.3 (5-19); Potassium 4.3 mmol/L (3.5-5.1)
[2024-04-08] MEDS: ondansetron 2 mg/ML SDV 2 mL 8 MG IVP (09:04)
[2024-04-08] MEDS: sodium chloride 0.9% 500 ML 75 ML IV (09:04)
[2024-04-08] MEDS: diphenhydrAMINE 25 mg Capsule 50 MG PO (09:06)
[2024-04-08] MEDS: famotidine 20 mg Tablet PO (09:06)
[2024-04-08] MEDS: [UNRECOGNIZED DRUG - OTHER] 12 MG IV (09:25)
== END 2024-04-08 23:59 | disposition home or self-care (01) ==
PROVIDERS: Nurse Practitioner Family; PCP Nurse Practitioner Family; Visit Provider Internal Medicine Hematology & Oncology
DX: E76.219 Morquio mucopolysaccharidoses, unspecified; D50.8 Other iron deficiency anemias; F98.8 Other specified behavioral and emotional disorders with onset usually occurring in childhood and adolescence; Z79.899 Other long term (current) drug therapy; E03.9 Hypothyroidism, unspecified
CPT/HCPCS: 80053; 85025; 96365; 96366; 96375; 99214; A4222; J1322; J2405; J7040; J7050

== ENCOUNTER 2024-04-15 08:02 | Oncology outpatient (recurring) (ONCR) | payer MEDICARE, MEDICAID, SELFPAY ==
[2024-04-15] VITALS (8 sets, daily range): BP systolic 109–145; BP diastolic 69–89; PULSE 82–778; RESP 16–18; TEMP 35.9–36.8; O2SAT 94–98
[2024-04-15] MEDS: sodium chloride 0.9% 500 ML 75 ML IV (08:34)
[2024-04-15] MEDS: diphenhydrAMINE 25 mg Capsule 50 MG PO (08:38)
[2024-04-15] MEDS: famotidine 20 mg Tablet PO (08:38)
[2024-04-15] MEDS: ondansetron 2 mg/ML SDV 2 mL 8 MG IVP (08:39)
[2024-04-15] MEDS: [UNRECOGNIZED DRUG - OTHER] IV (09:07)
[2024-04-15] MEDS: SODIUM CHLORIDE 0.9% IV (09:07)
== END 2024-04-15 23:59 | disposition home or self-care (01) ==
LOC: ONCMED 08:03
PROVIDERS: PCP Nurse Practitioner Family; Visit Provider Internal Medicine Hematology & Oncology
DX: E76.219 Morquio mucopolysaccharidoses, unspecified; Z79.899 Other long term (current) drug therapy
CPT/HCPCS: 96365; 96366; 96375; J1322; J2405; J7040

== ENCOUNTER 2024-04-22 07:53 | Oncology outpatient (recurring) (ONCR) | payer MEDICARE, MEDICAID, SELFPAY ==
[2024-04-22] VITALS (7 sets, daily range): BP systolic 93–128; BP diastolic 66–91; PULSE 62–81; RESP 16–17; TEMP 36.2–36.6; O2SAT 92–94
[2024-04-22] MEDS: diphenhydrAMINE 25 mg Capsule 50 MG PO (08:33)
[2024-04-22] MEDS: sodium chloride 0.9% 500 ML 75 ML IV (08:35)
[2024-04-22] MEDS: famotidine 20 mg Tablet PO (08:35)
[2024-04-22] MEDS: ondansetron 2 mg/ML SDV 2 mL 8 MG IVP (08:38)
[2024-04-22] MEDS: [UNRECOGNIZED DRUG - OTHER] IV (08:54)
[2024-04-22] MEDS: SODIUM CHLORIDE 0.9% IV (08:54)
[2024-04-22] MEDS: LORazepam 0.5 mg Tablet PO (11:37)
== END 2024-04-22 23:59 | disposition home or self-care (01) ==
LOC: ONCMED 07:53
PROVIDERS: PCP Nurse Practitioner Family; Visit Provider Internal Medicine Hematology & Oncology
DX: E76.219 Morquio mucopolysaccharidoses, unspecified; Z79.899 Other long term (current) drug therapy
CPT/HCPCS: 96365; 96366; 96375; A4222; J1322; J2405; J7040

== ENCOUNTER 2024-04-30 07:57 | Oncology outpatient (recurring) (ONCR) | payer MEDICARE, MEDICAID, SELFPAY ==
[2024-04-30] MEDS: sodium chloride 0.9% 500 ML 75 ML IV (08:36)
[2024-04-30] MEDS: ondansetron 2 mg/ML SDV 2 mL 8 MG IVP (08:37)
[2024-04-30] MEDS: famotidine 20 mg Tablet PO (08:38)
[2024-04-30] MEDS: diphenhydrAMINE 25 mg Capsule 50 MG PO (08:38)
[2024-04-30] MEDS: [UNRECOGNIZED DRUG - OTHER] IV (08:54)
[2024-04-30] MEDS: SODIUM CHLORIDE 0.9% IV (08:54)
[2024-04-30 09:07] VITALS: BP 119/83; PULSE 74; RESP 17; TEMP 36.6; O2SAT 97
== END 2024-04-30 23:59 | disposition home or self-care (01) ==
PROVIDERS: PCP Nurse Practitioner Family; Visit Provider Internal Medicine
DX: Z79.899 Other long term (current) drug therapy; E76.219 Morquio mucopolysaccharidoses, unspecified
CPT/HCPCS: A4222; J1322; J2405; J7040

== ENCOUNTER 2024-05-05 07:56 | Oncology outpatient (recurring) (ONCR) | payer MEDICARE, MEDICAID, SELFPAY ==
[2024-05-05] VITALS (9 sets, daily range): BP systolic 113–135; BP diastolic 78–95; PULSE 69–84; RESP 15–17; TEMP 36.3–36.7; O2SAT 94–99
[2024-05-05] MEDS: sodium chloride 0.9% 500 ML 75 ML IV (08:34)
[2024-05-05] MEDS: diphenhydrAMINE 25 mg Capsule 50 MG PO (08:35)
[2024-05-05] MEDS: ondansetron 2 mg/ML SDV 2 mL 8 MG IVP (08:35)
[2024-05-05] MEDS: famotidine 20 mg Tablet PO (08:36)
[2024-05-05] MEDS: [UNRECOGNIZED DRUG - OTHER] IV (08:56)
[2024-05-05] MEDS: SODIUM CHLORIDE 0.9% IV (08:56)
== END 2024-05-05 23:59 | disposition home or self-care (01) ==
LOC: ONCMED 07:56
PROVIDERS: PCP Nurse Practitioner Family; Visit Provider Internal Medicine
DX: Z79.899 Other long term (current) drug therapy; E76.219 Morquio mucopolysaccharidoses, unspecified
CPT/HCPCS: 96365; 96366; 96375; A4222; J1322; J2405; J7040

== ENCOUNTER 2024-05-13 08:10 | Oncology outpatient (recurring) (ONCR) | payer MEDICARE, MEDICAID, SELFPAY ==
[2024-05-13] VITALS (10 sets, daily range): BP systolic 70–127; BP diastolic 40–88; PULSE 63–111; RESP 16–18; TEMP 36.1–36.4; O2SAT 94–99
[2024-05-13] MEDS: sodium chloride 0.9% 500 ML 75 ML IV (08:40)
[2024-05-13] MEDS: ondansetron 2 mg/ML SDV 2 mL 8 MG IVP (08:40)
[2024-05-13] MEDS: famotidine 20 mg Tablet PO (08:40)
[2024-05-13] MEDS: diphenhydrAMINE 25 mg Capsule 50 MG PO (08:41)
[2024-05-13] MEDS: SODIUM CHLORIDE 0.9% IV (09:05)
[2024-05-13] MEDS: [UNRECOGNIZED DRUG - OTHER] IV (09:05)
[2024-05-13] MEDS: LORazepam 0.5 mg Tablet PO (10:28)
== END 2024-05-13 23:59 | disposition home or self-care (01) ==
LOC: ONCMED 08:10
PROVIDERS: PCP Nurse Practitioner Family; Visit Provider Internal Medicine
DX: E76.219 Morquio mucopolysaccharidoses, unspecified; Z79.899 Other long term (current) drug therapy
CPT/HCPCS: 96365; 96366; 96375; A4222; J1322; J2405; J7040

== ENCOUNTER 2024-05-20 08:06 | Oncology outpatient (recurring) (ONCR) | payer MEDICARE, MEDICAID, SELFPAY ==
[2024-05-20] MEDS: sodium chloride 0.9% 500 ML 75 ML IV (08:37)
[2024-05-20] MEDS: famotidine 20 mg Tablet PO (08:41)
[2024-05-20] MEDS: ondansetron 2 mg/ML SDV 2 mL 8 MG IVP (08:41)
[2024-05-20] MEDS: diphenhydrAMINE 25 mg Capsule 50 MG PO (08:44)
[2024-05-20 09:11] VITALS: BP 104/7; PULSE 95; RESP 16; TEMP 36.2; O2SAT 95
[2024-05-20] MEDS: [UNRECOGNIZED DRUG - OTHER] IV (09:11)
[2024-05-20] MEDS: SODIUM CHLORIDE 0.9% IV (09:11)
[2024-05-20 09:26] VITALS: BP 120/75; PULSE 80; RESP 16; TEMP 36.7; O2SAT 96
[2024-05-20 09:41] VITALS: BP 125/85; PULSE 84; RESP 16; TEMP 36.5; O2SAT 97
[2024-05-20 09:55] VITALS: BP 113/77; PULSE 75; RESP 16; TEMP 36.6; O2SAT 98
[2024-05-20 10:14] VITALS: BP 112/74; PULSE 75; RESP 18; TEMP 36.6; O2SAT 98
[2024-05-20 13:30] VITALS: BP 132/74; PULSE 88; RESP 17; TEMP 36.9; O2SAT 97
== END 2024-05-20 23:59 | disposition home or self-care (01) ==
PROVIDERS: PCP Nurse Practitioner Family; Visit Provider Internal Medicine
DX: E76.219 Morquio mucopolysaccharidoses, unspecified; Z79.899 Other long term (current) drug therapy
CPT/HCPCS: 96375; 96413; 96415; A4222; J1322; J2405; J7040

== ENCOUNTER 2024-05-27 07:53 | Oncology outpatient (recurring) (ONCR) | payer MEDICARE, MEDICAID, SELFPAY ==
[2024-05-27] VITALS (7 sets, daily range): BP systolic 88–124; BP diastolic 59–83; PULSE 40–85; RESP 16–18; TEMP 36–36.6; O2SAT 94–97
[2024-05-27] MEDS: sodium chloride 0.9% 500 ML 75 ML IV (08:21)
[2024-05-27] MEDS: ondansetron 2 mg/ML SDV 2 mL 8 MG IVP (08:24)
[2024-05-27] MEDS: diphenhydrAMINE 25 mg Capsule 50 MG PO (08:27)
[2024-05-27] MEDS: famotidine 20 mg Tablet PO (08:28)
[2024-05-27] MEDS: [UNRECOGNIZED DRUG - OTHER] IV (08:53)
[2024-05-27] MEDS: SODIUM CHLORIDE 0.9% IV (08:53)
== END 2024-05-27 23:59 | disposition home or self-care (01) ==
LOC: ONCMED 07:53
PROVIDERS: PCP Nurse Practitioner Family; Visit Provider Internal Medicine
DX: E76.219 Morquio mucopolysaccharidoses, unspecified; Z79.899 Other long term (current) drug therapy
CPT/HCPCS: 96365; 96366; 96375; J1322; J2405; J7040

== ENCOUNTER 2024-06-03 07:53 | Oncology outpatient (recurring) (ONCR) | payer MEDICARE, MEDICAID, SELFPAY ==
[2024-06-03] VITALS (9 sets, daily range): BP systolic 107–120; BP diastolic 64–81; PULSE 78–86; RESP 16; TEMP 36.2–36.4; O2SAT 94–99
[2024-06-03] MEDS: famotidine 20 mg Tablet PO (08:22)
[2024-06-03] MEDS: diphenhydrAMINE 25 mg Capsule 50 MG PO (08:22)
[2024-06-03] MEDS: sodium chloride 0.9% 500 ML 75 ML IV (08:23)
[2024-06-03] MEDS: ondansetron 2 mg/ML SDV 2 mL 8 MG IVP (08:27)
[2024-06-03] MEDS: [UNRECOGNIZED DRUG - OTHER] IV (09:10)
[2024-06-03] MEDS: SODIUM CHLORIDE 0.9% IV (09:10)
[2024-06-03] MEDS: LORazepam 0.5 mg Tablet PO (11:05)
== END 2024-06-03 23:59 | disposition home or self-care (01) ==
LOC: ONCMED 07:53
PROVIDERS: PCP Nurse Practitioner Family; Visit Provider Internal Medicine
DX: E76.219 Morquio mucopolysaccharidoses, unspecified (principal); Z79.899 Other long term (current) drug therapy
CPT/HCPCS: 96365; 96366; 96375; A4222; J1322; J2405; J7040

== ENCOUNTER 2024-06-10 07:53 | Oncology outpatient (recurring) (ONCR) | payer MEDICARE, MEDICAID, SELFPAY ==
[2024-06-10] VITALS (7 sets, daily range): BP systolic 106–130; BP diastolic 70–89; PULSE 74–95; RESP 16; TEMP 36.4–36.7; O2SAT 92–97
[2024-06-10] MEDS: sodium chloride 0.9% 500 ML 75 ML IV (08:18)
[2024-06-10] MEDS: ondansetron 2 mg/ML SDV 2 mL 8 MG IVP (08:21)
[2024-06-10] MEDS: famotidine 20 mg Tablet PO (08:24)
[2024-06-10] MEDS: diphenhydrAMINE 25 mg Capsule 50 MG PO (08:24)
[2024-06-10] MEDS: SODIUM CHLORIDE 0.9% IV (08:45)
[2024-06-10] MEDS: [UNRECOGNIZED DRUG - OTHER] IV (08:45)
== END 2024-06-10 23:59 | disposition home or self-care (01) ==
PROVIDERS: PCP Nurse Practitioner Family; Visit Provider Internal Medicine
DX: E76.219 Morquio mucopolysaccharidoses, unspecified (principal); Z79.899 Other long term (current) drug therapy
CPT/HCPCS: 96365; 96366; 96375; A4222; J1322; J2405; J7040

== ENCOUNTER → 2024-06-12 08:40 | Outpatient (BNVA) | payer MEDICARE, MEDICAID, SELFPAY | PROVIDERS: PCP Nurse Practitioner Family; Visit Provider Specialist | DX: G43.711 Chronic migraine without aura, intractable, with status migrainosus (principal) | CPT/HCPCS: 64615 ==

== ENCOUNTER 2024-06-17 07:52 | Oncology outpatient (recurring) (ONCR) | payer MEDICARE, MEDICAID, SELFPAY ==
[2024-06-17] MEDS: sodium chloride 0.9% 500 ML 75 ML IV (08:24)
[2024-06-17] MEDS: ondansetron 2 mg/ML SDV 2 mL 8 MG IVP (08:27)
[2024-06-17] MEDS: famotidine 20 mg Tablet PO (08:29)
[2024-06-17] MEDS: diphenhydrAMINE 25 mg Capsule 50 MG PO (08:29)
[2024-06-17] MEDS: SODIUM CHLORIDE 0.9% IV (08:35)
[2024-06-17] MEDS: [UNRECOGNIZED DRUG - OTHER] IV (08:35)
[2024-06-17 08:45] VITALS: BP 109/70; PULSE 76; RESP 18; TEMP 36.1; O2SAT 95
[2024-06-17 09:00] VITALS: BP 104/72; PULSE 86; RESP 18; TEMP 35.9; O2SAT 95
[2024-06-17 09:30] VITALS: BP 104/73; PULSE 82; RESP 18; TEMP 36.3; O2SAT 95
[2024-06-17 09:45] VITALS: BP 108/70; PULSE 82; RESP 17; TEMP 36.2; O2SAT 94
[2024-06-17 12:45] VITALS: BP 110/74; PULSE 82; RESP 18; TEMP 36.6; O2SAT 94
== END 2024-06-17 23:59 | disposition home or self-care (01) ==
LOC: ONCMED 07:52
PROVIDERS: PCP Nurse Practitioner Family; Visit Provider Internal Medicine
DX: E76.219 Morquio mucopolysaccharidoses, unspecified (principal); Z79.899 Other long term (current) drug therapy
CPT/HCPCS: 96365; 96366; 96375; A4222; J1322; J2405; J7040

== ENCOUNTER 2024-06-25 08:03 | Oncology outpatient (recurring) (ONCR) | payer MEDICARE, MEDICAID, SELFPAY ==
[2024-06-25] VITALS (8 sets, daily range): BP systolic 84–139; BP diastolic 48–94; PULSE 69–94; RESP 16; TEMP 35.8–36.6; O2SAT 94–98
[2024-06-25] MEDS: sodium chloride 0.9% 500 ML 75 ML IV (08:48)
[2024-06-25] MEDS: famotidine 20 mg Tablet PO (08:49)
[2024-06-25] MEDS: diphenhydrAMINE 25 mg Capsule 50 MG PO (08:49)
[2024-06-25] MEDS: ondansetron 2 mg/ML SDV 2 mL 8 MG IVP (08:51)
[2024-06-25] MEDS: SODIUM CHLORIDE 0.9% IV (09:15)
[2024-06-25] MEDS: [UNRECOGNIZED DRUG - OTHER] IV (09:15)
[2024-06-25] MEDS: LORazepam 0.5 mg Tablet PO (12:00)
== END 2024-06-25 23:59 | disposition home or self-care (01) ==
LOC: ONCMED 08:03
PROVIDERS: PCP Nurse Practitioner Family; Visit Provider Internal Medicine
DX: E76.219 Morquio mucopolysaccharidoses, unspecified (principal); Z79.899 Other long term (current) drug therapy
CPT/HCPCS: 96365; 96366; 96375; A4222; J1322; J2405; J7040

== ENCOUNTER 2024-07-01 08:00 | Oncology outpatient (recurring) (ONCR) | payer MEDICARE, MEDICAID, SELFPAY ==
[2024-07-01 08:28] LABS: Basophils # 0.1 10^3/uL (0.0-0.1); Basophils % 0.7 %; Eosinophils # 0.5 10^3/uL (0.0-0.8); Eosinophils % 3.5 %; Hematocrit 40.9 % (36-47); Lymphocytes # 3.3 10^3/uL (0.8-4.8); Lymphocytes % 24.4 %; Mean Corpuscular Hemoglobin 28.9 pg (27-33); Mean Corpuscular Volume 90.1 fl (85-98); Mean Platelet Volume 9.7 fL (7.4-10.4); Monocytes # 1.2 10^3/uL (0.2-0.9); Monocytes % 8.5 %; Neutrophils # 8.43 10^3/uL (1.8-7.7); Neutrophils % 62.5 %; Nucleated Red Blood Cells % 0 %; Platelet Count 382 10^3/cmm (157-399); Red Blood Count 4.54 10^6/uL (3.85-5.65); Red Cell Distribution Width 14.6 % (12.1-15.1); White Blood Count 13.49 10^3/uL (3.29-11.43)
[2024-07-01] MEDS: sodium chloride 0.9% 500 ML 75 ML IV (08:36)
[2024-07-01] MEDS: diphenhydrAMINE 25 mg Capsule 50 MG PO (08:38)
[2024-07-01] MEDS: famotidine 20 mg Tablet PO (08:39)
[2024-07-01] MEDS: ondansetron 2 mg/ML SDV 2 mL 8 MG IVP (08:40)
[2024-07-01 08:51] LABS: Alanine Aminotransferase < 5 U/L (0-33); Albumin Level 3.6 g/dL (3.5-5.2); Alkaline Phosphatase 124 U/L (35-105); Anion Gap 16.8 (5-19); Aspartate Amino Transferase 14 U/L (0-32); Blood Urea Nitrogen 8 mg/dL (6-20); Calcium 9.4 mg/dL (8.5-10.5); Carbon Dioxide 24 mmol/L (22-29); Chloride 104 mmol/L (98-107); Creatinine Clr Calc Pharmacy 112.8617; Globulin 4.6 g/dL (1.3-4.6); Glomerular Filtration Rate 138.8 mL/min (90-130); Glucose 97 mg/dL (65-115); Osmolality Calculated 290 mOsm/kg (285-295); Potassium 3.8 mmol/L (3.5-5.1); Sodium 141 mmol/L (136-145); Total Bilirubin 0.2 mg/dL (0.15-1.2); Total Protein 8.2 g/dL (6.6-8.7)
[2024-07-01 09:05] VITALS: BP 139/74; PULSE 86; RESP 16; TEMP 36.6; O2SAT 95
[2024-07-01] MEDS: [UNRECOGNIZED DRUG - OTHER] IV (09:05)
[2024-07-01] MEDS: SODIUM CHLORIDE 0.9% IV (09:05)
[2024-07-01 09:20] VITALS: BP 106/63; PULSE 89; RESP 16; TEMP 36.6; O2SAT 97
[2024-07-01 09:35] VITALS: BP 117/74; PULSE 93; RESP 16; O2SAT 95
[2024-07-01 09:50] VITALS: BP 121/81; PULSE 90; RESP 16; TEMP 36.7; O2SAT 95
[2024-07-01] MEDS: LORazepam 0.5 mg Tablet PO (11:33)
[2024-07-01 13:10] VITALS: BP 120/76; PULSE 84; RESP 16; TEMP 35.9; O2SAT 96
[2024-07-01 13:15] VITALS: BP 121/64; PULSE 93; RESP 16; TEMP 35.9; O2SAT 95
== END 2024-07-02 09:35 | disposition home or self-care (01) ==
LOC: ONCMED 08:01
PROVIDERS: Internal Medicine Medical Oncology; PCP Nurse Practitioner Family; Visit Provider Internal Medicine
DX: E76.219 Morquio mucopolysaccharidoses, unspecified (principal); D50.8 Other iron deficiency anemias; E03.9 Hypothyroidism, unspecified; E87.6 Hypokalemia; Z79.899 Other long term (current) drug therapy; Z95.828 Presence of other vascular implants and grafts
CPT/HCPCS: 80053; 85025; 96375; 96413; 96415; 99213; A4222; J1322; J2405; J7040

== ENCOUNTER 2024-07-08 08:02 | Oncology outpatient (recurring) (ONCR) | payer MEDICARE, MEDICAID, SELFPAY ==
[2024-07-08] MEDS: sodium chloride 0.9% 500 ML 75 ML IV (08:45)
[2024-07-08] MEDS: famotidine 20 mg Tablet PO (08:46)
[2024-07-08] MEDS: diphenhydrAMINE 25 mg Capsule 50 MG PO (08:47)
[2024-07-08] MEDS: ondansetron 2 mg/ML SDV 2 mL 8 MG IVP (08:49)
[2024-07-08] MEDS: SODIUM CHLORIDE 0.9% IV (09:15)
[2024-07-08] MEDS: [UNRECOGNIZED DRUG - OTHER] IV (09:15)
[2024-07-08 09:20] VITALS: BP 110/74; PULSE 88; RESP 17; TEMP 36.7; O2SAT 94
[2024-07-08] MEDS: LORazepam 0.5 mg Tablet PO (10:26)
[2024-07-08 13:15] VITALS: BP 119/80; PULSE 87; RESP 18; TEMP 36.4; O2SAT 96
== END 2024-07-08 23:59 | disposition home or self-care (01) ==
LOC: ONCMED 08:03
PROVIDERS: PCP Nurse Practitioner Family; Visit Provider Internal Medicine
DX: E76.219 Morquio mucopolysaccharidoses, unspecified (principal); Z79.899 Other long term (current) drug therapy
CPT/HCPCS: 96365; 96366; 96375; J1322; J2405; J7040

== ENCOUNTER 2024-07-15 07:57 | Oncology outpatient (recurring) (ONCR) | payer MEDICARE, MEDICAID, SELFPAY ==
[2024-07-15] VITALS (7 sets, daily range): BP systolic 100–129; BP diastolic 55–88; PULSE 71–92; RESP 16–17; TEMP 35.9–36.6; O2SAT 94–99
[2024-07-15] MEDS: sodium chloride 0.9% 500 ML 75 ML IV (08:29)
[2024-07-15] MEDS: ondansetron 2 mg/ML SDV 2 mL 8 MG IVP (08:32)
[2024-07-15] MEDS: diphenhydrAMINE 25 mg Capsule 50 MG PO (08:33)
[2024-07-15] MEDS: famotidine 20 mg Tablet PO (08:33)
[2024-07-15] MEDS: SODIUM CHLORIDE 0.9% IV (09:15)
[2024-07-15] MEDS: [UNRECOGNIZED DRUG - OTHER] IV (09:15)
[2024-07-15] MEDS: LORazepam 0.5 mg Tablet PO (11:42)
== END 2024-07-15 23:59 | disposition home or self-care (01) ==
LOC: ONCMED 07:57
PROVIDERS: PCP Nurse Practitioner Family; Visit Provider Internal Medicine
DX: E76.219 Morquio mucopolysaccharidoses, unspecified (principal); Z79.899 Other long term (current) drug therapy
CPT/HCPCS: 96365; 96366; 96375; A4222; J1322; J2405; J7040

== ENCOUNTER 2024-07-22 07:59 | Oncology outpatient (recurring) (ONCR) | payer MEDICARE, MEDICAID, SELFPAY ==
[2024-07-22 08:12] VITALS: BP 111/72; PULSE 75; RESP 16; TEMP 36.5; O2SAT 97
[2024-07-22] MEDS: sodium chloride 0.9% 500 ML 75 ML IV (08:28)
[2024-07-22] MEDS: ondansetron 2 mg/ML SDV 2 mL 8 MG IVP (08:30)
[2024-07-22] MEDS: diphenhydrAMINE 25 mg Capsule 50 MG PO (08:31)
[2024-07-22] MEDS: famotidine 20 mg Tablet PO (08:31)
[2024-07-22 09:05] VITALS: BP 117/81; PULSE 81; RESP 16; TEMP 36.2; O2SAT 96
[2024-07-22] MEDS: SODIUM CHLORIDE 0.9% IV (09:05)
[2024-07-22] MEDS: [UNRECOGNIZED DRUG - OTHER] IV (09:05)
[2024-07-22 09:50] VITALS: BP 108/70; PULSE 78; RESP 16; TEMP 36.6; O2SAT 96
[2024-07-22 10:05] VITALS: BP 99/61; PULSE 88; RESP 16; TEMP 36.6; O2SAT 97
[2024-07-22 10:20] VITALS: BP 115/86; PULSE 91; RESP 16; TEMP 36.4; O2SAT 98
[2024-07-22 13:15] VITALS: BP 112/73; PULSE 91; RESP 16; TEMP 36.3; O2SAT 96
== END 2024-07-22 23:59 | disposition home or self-care (01) ==
LOC: ONCMED 07:59
PROVIDERS: PCP Nurse Practitioner Family; Visit Provider Internal Medicine
DX: E76.219 Morquio mucopolysaccharidoses, unspecified (principal); Z79.899 Other long term (current) drug therapy
CPT/HCPCS: 96365; 96366; 96375; J1322; J2405; J7040; J9999

== ENCOUNTER 2024-07-29 07:59 | Oncology outpatient (recurring) (ONCR) | payer MEDICARE, MEDICAID, SELFPAY ==
[2024-07-29] MEDS: sodium chloride 0.9% 500 ML 75 ML IV (08:22)
[2024-07-29] MEDS: ondansetron 2 mg/ML SDV 2 mL 8 MG IVP (08:23)
[2024-07-29] MEDS: diphenhydrAMINE 25 mg Capsule 50 MG PO (08:24)
[2024-07-29] MEDS: famotidine 20 mg Tablet PO (08:24)
[2024-07-29 08:33] VITALS: BP 122/85; PULSE 84; RESP 17; TEMP 36.8; O2SAT 96
[2024-07-29] MEDS: [UNRECOGNIZED DRUG - OTHER] IV (09:06)
[2024-07-29] MEDS: SODIUM CHLORIDE 0.9% IV (09:06)
[2024-07-29 12:35] VITALS: BP 115/81; PULSE 81; RESP 18; TEMP 36.9; O2SAT 95
== END 2024-07-29 23:59 | disposition home or self-care (01) ==
LOC: ONCMED 07:59
PROVIDERS: PCP Nurse Practitioner Family; Visit Provider Internal Medicine
DX: E76.219 Morquio mucopolysaccharidoses, unspecified (principal); Z79.899 Other long term (current) drug therapy
CPT/HCPCS: 96375; 96413; 96415; J1322; J2405; J7040; J9999

== ENCOUNTER 2024-08-05 08:02 | Oncology outpatient (recurring) (ONCR) | payer MEDICARE, MEDICAID, SELFPAY ==
[2024-08-05] VITALS (8 sets, daily range): BP systolic 83–118; BP diastolic 59–81; PULSE 70–97; RESP 16–18; TEMP 35.9–37.4; O2SAT 94–100
[2024-08-05] MEDS: ondansetron 2 mg/ML SDV 2 mL 8 MG IVP (08:38)
[2024-08-05] MEDS: sodium chloride 0.9% 250 ML 75 ML IV (08:38)
[2024-08-05] MEDS: diphenhydrAMINE 25 mg Capsule 50 MG PO (08:39)
[2024-08-05] MEDS: famotidine 20 mg Tablet PO (08:39)
[2024-08-05] MEDS: [UNRECOGNIZED DRUG - OTHER] IV (08:56)
[2024-08-05] MEDS: SODIUM CHLORIDE 0.9% IV (08:56)
== END 2024-08-05 23:59 | disposition home or self-care (01) ==
LOC: ONCMED 08:02
PROVIDERS: PCP Nurse Practitioner Family; Visit Provider Internal Medicine
DX: E76.219 Morquio mucopolysaccharidoses, unspecified (principal); Z79.899 Other long term (current) drug therapy
CPT/HCPCS: 96365; 96366; 96375; A4222; J1322; J2405; J7050; J9999

== ENCOUNTER 2024-08-12 07:56 | Oncology outpatient (recurring) (ONCR) | payer MEDICARE, MEDICAID, SELFPAY ==
[2024-08-12] VITALS (7 sets, daily range): BP systolic 107–132; BP diastolic 57–84; PULSE 74–100; RESP 16; TEMP 36.3–36.7; O2SAT 96–100
[2024-08-12] MEDS: sodium chloride 0.9% 500 ML 75 ML IV (08:20)
[2024-08-12] MEDS: ondansetron 2 mg/ML SDV 2 mL 8 MG IVP (08:24)
[2024-08-12] MEDS: diphenhydrAMINE 25 mg Capsule 50 MG PO (08:25)
[2024-08-12] MEDS: famotidine 20 mg Tablet PO (08:25)
[2024-08-12] MEDS: [UNRECOGNIZED DRUG - OTHER] IV (08:45)
[2024-08-12] MEDS: SODIUM CHLORIDE 0.9% IV (08:45)
== END 2024-08-12 23:59 | disposition home or self-care (01) ==
LOC: ONCMED 07:56
PROVIDERS: PCP Nurse Practitioner Family; Visit Provider Internal Medicine
DX: E76.219 Morquio mucopolysaccharidoses, unspecified (principal); Z79.899 Other long term (current) drug therapy
CPT/HCPCS: 96365; 96366; 96375; J1322; J2405; J7040; J9999

== ENCOUNTER 2024-08-19 08:00 | Oncology outpatient (recurring) (ONCR) | payer MEDICARE, MEDICAID, SELFPAY ==
[2024-08-19 08:21] VITALS: BP 112/82; PULSE 83; RESP 16; TEMP 36.6; O2SAT 96
[2024-08-19] MEDS: sodium chloride 0.9% 500 ML 75 ML IV (08:33)
[2024-08-19] MEDS: famotidine 20 mg Tablet PO (08:35)
[2024-08-19] MEDS: diphenhydrAMINE 25 mg Capsule 50 MG PO (08:35)
[2024-08-19] MEDS: ondansetron 2 mg/ML SDV 2 mL 8 MG IVP (08:37)
[2024-08-19] MEDS: SODIUM CHLORIDE 0.9% IV (09:00)
[2024-08-19] MEDS: [UNRECOGNIZED DRUG - OTHER] IV (09:00)
[2024-08-19 09:17] VITALS: BP 126/85; PULSE 89; RESP 16; TEMP 36.6; O2SAT 99
[2024-08-19 13:02] VITALS: BP 135/84; PULSE 87; TEMP 36.7; O2SAT 96
== END 2024-08-19 23:59 | disposition home or self-care (01) ==
LOC: ONCMED 08:00
PROVIDERS: PCP Nurse Practitioner Family; Visit Provider Internal Medicine Medical Oncology
DX: E76.219 Morquio mucopolysaccharidoses, unspecified (principal); Z79.899 Other long term (current) drug therapy
CPT/HCPCS: 96365; 96366; 96375; A4222; J1322; J2405; J7040; J9999

== ENCOUNTER 2024-08-26 08:06 | Oncology outpatient (recurring) (ONCR) | payer OTHER, MEDICAID, SELFPAY ==
[2024-08-26] MEDS: sodium chloride 0.9% 500 ML 75 ML IV (08:33)
[2024-08-26] MEDS: ondansetron 2 mg/ML SDV 2 mL 8 MG IVP (08:36)
[2024-08-26] MEDS: diphenhydrAMINE 25 mg Capsule 50 MG PO (08:37)
[2024-08-26] MEDS: famotidine 20 mg Tablet PO (08:37)
[2024-08-26 08:55] VITALS: BP 115/52; PULSE 87; RESP 16; TEMP 36.6
[2024-08-26] MEDS: SODIUM CHLORIDE 0.9% IV (08:55)
[2024-08-26] MEDS: [UNRECOGNIZED DRUG - OTHER] IV (08:55)
[2024-08-26 09:10] VITALS: BP 88/52; PULSE 75; RESP 16
[2024-08-26 09:33] VITALS: BP 122/83; PULSE 83; RESP 16; TEMP 36.7; O2SAT 94
[2024-08-26 13:15] VITALS: BP 133/91; PULSE 82; RESP 16; TEMP 37; O2SAT 96
== END 2024-08-26 23:59 | disposition home or self-care (01) ==
PROVIDERS: PCP Nurse Practitioner Family; Visit Provider Internal Medicine
DX: E76.219 Morquio mucopolysaccharidoses, unspecified (principal); Z79.899 Other long term (current) drug therapy
CPT/HCPCS: 96365; 96366; 96375; A4222; J1322; J2405; J7040; J9999

== ENCOUNTER 2024-09-03 08:02 | Oncology outpatient (recurring) (ONCR) | payer OTHER, MEDICAID, SELFPAY ==
[2024-09-03 08:07] VITALS: BP 112/78; PULSE 78; RESP 17; TEMP 36.9; O2SAT 94
[2024-09-03] MEDS: sodium chloride 0.9% 500 ML 75 ML IV (08:20)
[2024-09-03] MEDS: famotidine 20 mg Tablet PO (08:21)
[2024-09-03] MEDS: diphenhydrAMINE 25 mg Capsule 50 MG PO (08:21)
[2024-09-03] MEDS: ondansetron 2 mg/ML SDV 2 mL 8 MG IVP (08:32)
[2024-09-03] MEDS: [UNRECOGNIZED DRUG - OTHER] IV (08:32)
[2024-09-03] MEDS: SODIUM CHLORIDE 0.9% IV (08:32)
[2024-09-03 08:44] VITALS: BP 112/78; PULSE 77; RESP 17; TEMP 37.1; O2SAT 93
[2024-09-03 09:30] VITALS: BP 111/77; PULSE 80; TEMP 36.8; O2SAT 93
[2024-09-03 10:00] VITALS: BP 110/76; PULSE 88; TEMP 36.8; O2SAT 98
[2024-09-03 13:05] VITALS: BP 128/87; PULSE 90
== END 2024-09-03 23:59 | disposition home or self-care (01) ==
PROVIDERS: PCP Nurse Practitioner Family; Visit Provider Internal Medicine
DX: E76.219 Morquio mucopolysaccharidoses, unspecified (principal); Z79.899 Other long term (current) drug therapy
CPT/HCPCS: 96365; 96366; 96375; A4222; J1322; J2405; J7040; J9999

== ENCOUNTER 2024-09-09 07:53 | Oncology outpatient (recurring) (ONCR) | payer OTHER, MEDICAID, SELFPAY ==
[2024-09-09 08:18] VITALS: BP 101/66; PULSE 90; RESP 16; TEMP 36.8; O2SAT 95
[2024-09-09] MEDS: sodium chloride 0.9% 500 ML 75 ML IV (08:33)
[2024-09-09] MEDS: ondansetron 2 mg/ML SDV 2 mL 8 MG IVP (08:34)
[2024-09-09] MEDS: diphenhydrAMINE 25 mg Capsule 50 MG PO (08:35)
[2024-09-09] MEDS: famotidine 20 mg Tablet PO (08:37)
[2024-09-09] MEDS: [UNRECOGNIZED DRUG - OTHER] IV (08:55)
[2024-09-09] MEDS: SODIUM CHLORIDE 0.9% IV (08:55)
[2024-09-09 09:10] VITALS: BP 108/64; PULSE 94; RESP 16; TEMP 36.8; O2SAT 97
[2024-09-09 09:25] VITALS: BP 114/78; PULSE 97; RESP 16; TEMP 37.1; O2SAT 97
[2024-09-09 09:42] VITALS: BP 106/71; PULSE 88; RESP 16; TEMP 36.7; O2SAT 98
[2024-09-09 10:00] VITALS: BP 117/83; PULSE 92; RESP 16; TEMP 36.7; O2SAT 98
[2024-09-09] MEDS: LORazepam 0.5 mg Tablet PO (11:38)
[2024-09-09 13:22] VITALS: BP 125/87; PULSE 97; TEMP 37.1
== END 2024-09-09 23:59 | disposition home or self-care (01) ==
PROVIDERS: PCP Nurse Practitioner Family; Visit Provider Internal Medicine
DX: E76.219 Morquio mucopolysaccharidoses, unspecified (principal); Z79.899 Other long term (current) drug therapy
CPT/HCPCS: 96365; 96366; 96375; A4222; J1322; J2405; J7040; J9999

== ENCOUNTER → 2024-09-11 08:20 | Outpatient (BNVA) | payer OTHER, MEDICAID, SELFPAY | PROVIDERS: PCP Nurse Practitioner Family; Visit Provider Specialist | DX: G43.711 Chronic migraine without aura, intractable, with status migrainosus (principal) | CPT/HCPCS: 64615; J9999 ==

== ENCOUNTER 2024-09-23 07:43 | Oncology outpatient (recurring) (ONCR) | payer OTHER, MEDICAID, SELFPAY ==
[2024-09-23] VITALS (7 sets, daily range): BP systolic 98–122; BP diastolic 67–87; PULSE 90–97; RESP 16; TEMP 36.4–36.8; O2SAT 94–100
[2024-09-23] MEDS: sodium chloride 0.9% 500 ML 75 ML IV (08:30)
[2024-09-23] MEDS: famotidine 20 mg Tablet PO (08:30)
[2024-09-23] MEDS: diphenhydrAMINE 25 mg Capsule 50 MG PO (08:30)
[2024-09-23] MEDS: ondansetron 2 mg/ML SDV 2 mL 8 MG IVP (08:31)
[2024-09-23] MEDS: SODIUM CHLORIDE 0.9% IV (09:16)
[2024-09-23] MEDS: [UNRECOGNIZED DRUG - OTHER] IV (09:16)
== END 2024-09-23 23:59 | disposition home or self-care (01) ==
LOC: ONCMED 07:43
PROVIDERS: PCP Nurse Practitioner Family; Visit Provider Internal Medicine
DX: E76.219 Morquio mucopolysaccharidoses, unspecified (principal); Z79.899 Other long term (current) drug therapy
CPT/HCPCS: 96365; 96366; 96375; J1322; J2405; J7040; J9999

== ENCOUNTER 2024-09-30 07:58 | Oncology outpatient (recurring) (ONCR) | payer OTHER, MEDICAID, SELFPAY ==
[2024-09-30 08:20] LABS: Basophils # 0.1 10^3/uL (0.0-0.1); Basophils % 0.6 %; Eosinophils # 0.4 10^3/uL (0.0-0.8); Eosinophils % 3.5 %; Hematocrit 37.9 % (36-47); Lymphocytes # 2.9 10^3/uL (0.8-4.8); Lymphocytes % 24.4 %; Mean Corpuscular HGB Conc 31.4 g/dL (30-55); Mean Corpuscular Hemoglobin 29.2 pg (27-33); Mean Corpuscular Volume 92.9 fl (85-98); Mean Platelet Volume 9.5 fL (7.4-10.4); Monocytes # 0.9 10^3/uL (0.2-0.9); Neutrophils # 7.45 10^3/uL (1.8-7.7); Nucleated Red Blood Cells % 0 %; Platelet Count 357 10^3/cmm (157-399); Red Blood Count 4.08 10^6/uL (3.85-5.65); White Blood Count 11.81 10^3/uL (3.29-11.43)
[2024-09-30 08:21] LABS: Reticulocyte % 2.7 % (0.5-2.0)
[2024-09-30 08:23] LABS: Erythrocyte Sedimentation Rate 53 mm/hr (0-15)
[2024-09-30] MEDS: sodium chloride 0.9% 500 ML 75 ML IV (08:45)
[2024-09-30 08:46] LABS: Blood Urea Nitrogen 13 mg/dL (6-20); Calcium 8.9 mg/dL (8.5-10.5); Carbon Dioxide 24 mmol/L (22-29); Chloride 98 mmol/L (98-107); Creatinine Clr Calc Pharmacy 127.2029; Glomerular Filtration Rate 138.8 mL/min (90-130); Glucose 106 mg/dL (65-115); Iron 34 ug/dL (37-145); Osmolality Calculated 279 mOsm/kg (285-295); Sodium 134 mmol/L (136-145); Unsaturated Iron Binding 182 ug/dL (112-347)
[2024-09-30 08:47] LABS: Alanine Aminotransferase 6 U/L (0-33); Albumin Level 3.7 g/dL (3.5-5.2); Alkaline Phosphatase 122 U/L (35-105); Aspartate Amino Transferase 13 U/L (0-32); Ferritin 601 ng/mL (15-150); Globulin 3.8 g/dL (1.3-4.6); Lactate Dehydrogenase 179 U/L (135-214); Percent Saturation 15.7 % (20-50); Total Bilirubin 0.2 mg/dL (0.15-1.2); Total Iron Binding Capacity 216 mcg/dl; Total Protein 7.5 g/dL (6.6-8.7)
[2024-09-30] MEDS: ondansetron 2 mg/ML SDV 2 mL 8 MG IVP (08:47)
[2024-09-30] MEDS: diphenhydrAMINE 25 mg Capsule 50 MG PO (08:50)
[2024-09-30] MEDS: famotidine 20 mg Tablet PO (08:57)
[2024-09-30 09:02] LABS: Vitamin B12 285 pg/mL (232-1245)
[2024-09-30 09:04] LABS: Folate Level 5.5 ng/mL (4.8-37.3)
[2024-09-30 09:20] VITALS: BP 114/80; PULSE 103; RESP 17; TEMP 37.1; O2SAT 95
[2024-09-30] MEDS: [UNRECOGNIZED DRUG - OTHER] IV (09:20)
[2024-09-30] MEDS: SODIUM CHLORIDE 0.9% IV (09:20)
[2024-09-30 09:35] VITALS: BP 101/64; PULSE 96; RESP 16; TEMP 37.1; O2SAT 95
[2024-09-30 10:07] VITALS: BP 117/77; PULSE 99; RESP 16; TEMP 36.8; O2SAT 93
[2024-09-30 10:25] VITALS: BP 116/70; PULSE 103; RESP 16; TEMP 36.2; O2SAT 97
[2024-09-30 10:40] VITALS: BP 127/52; PULSE 105; RESP 16; TEMP 37.2; O2SAT 98
[2024-09-30 10:48] LABS: Free T4 Free Thyroxine 1.25 ng/dL (0.82-1.77); T3 Free 2.9 PG/ML (2.0-4.4); Thyroid Stimulating Hormone 2.82 uIU/mL (0.27-4.20)
[2024-09-30 13:35] VITALS: BP 105/72; PULSE 67; RESP 16; TEMP 36.7; O2SAT 97
== END 2024-09-30 23:59 | disposition home or self-care (01) ==
PROVIDERS: Nurse Practitioner Family; PCP Nurse Practitioner Family; Visit Provider Internal Medicine
DX: E76.219 Morquio mucopolysaccharidoses, unspecified (principal); E03.9 Hypothyroidism, unspecified; D50.8 Other iron deficiency anemias; R62.52 Short stature (child); Z79.899 Other long term (current) drug therapy
CPT/HCPCS: 80053; 82607; 82728; 82746; 83010; 83540; 83550; 83615; 84439; 84443; 84481; 85025; 85045; 85651; 96365; 96366; 96375; 99214; A4222; J1322; J2405; J7040; J9999

== ENCOUNTER 2024-10-07 07:54 | Oncology outpatient (recurring) (ONCR) | payer OTHER, MEDICAID, SELFPAY ==
[2024-10-07] VITALS (7 sets, daily range): BP systolic 91–126; BP diastolic 57–89; PULSE 70–99; RESP 17–19; TEMP 36.2–36.9; O2SAT 93–100
[2024-10-07] MEDS: famotidine 20 mg Tablet PO (08:31)
[2024-10-07] MEDS: ondansetron 2 mg/ML SDV 2 mL 8 MG IVP (08:31)
[2024-10-07] MEDS: diphenhydrAMINE 25 mg Capsule 50 MG PO (08:31)
[2024-10-07] MEDS: SODIUM CHLORIDE 0.9% IV (09:04)
[2024-10-07] MEDS: [UNRECOGNIZED DRUG - OTHER] IV (09:04)
[2024-10-07] MEDS: sodium chloride 0.9% 500 ML 50 ML IV (09:34)
== END 2024-10-07 23:59 | disposition home or self-care (01) ==
PROVIDERS: PCP Nurse Practitioner Family; Visit Provider Internal Medicine
DX: E76.219 Morquio mucopolysaccharidoses, unspecified (principal); Z79.899 Other long term (current) drug therapy
CPT/HCPCS: 96365; 96366; 96375; A4222; J1322; J2405; J7040; J9999

== ENCOUNTER 2024-10-14 07:53 | Oncology outpatient (recurring) (ONCR) | payer OTHER, MEDICAID, SELFPAY ==
[2024-10-14 08:15] VITALS: BP 98/64; PULSE 93; RESP 17; TEMP 36.9; O2SAT 95
[2024-10-14] MEDS: diphenhydrAMINE 25 mg Capsule 50 MG PO (08:37)
[2024-10-14] MEDS: famotidine 20 mg Tablet PO (08:38)
[2024-10-14] MEDS: sodium chloride 0.9% 500 ML 75 ML IV (08:38)
[2024-10-14] MEDS: ondansetron 2 mg/ML SDV 2 mL 8 MG IVP (08:42)
[2024-10-14 09:23] VITALS: BP 95/51; PULSE 88; RESP 17; TEMP 36.9; O2SAT 94
[2024-10-14] MEDS: SODIUM CHLORIDE 0.9% IV (09:23)
[2024-10-14] MEDS: [UNRECOGNIZED DRUG - OTHER] IV (09:23)
[2024-10-14 09:48] VITALS: BP 96/52; PULSE 83; RESP 17; TEMP 37; O2SAT 93
[2024-10-14 13:39] VITALS: BP 127/96; PULSE 96; RESP 17; TEMP 36.2; O2SAT 98
== END 2024-10-14 23:59 | disposition home or self-care (01) ==
LOC: ONCMED 07:54
PROVIDERS: PCP Nurse Practitioner Family; Visit Provider Internal Medicine
DX: E76.219 Morquio mucopolysaccharidoses, unspecified (principal); Z79.899 Other long term (current) drug therapy
CPT/HCPCS: A4222; J1322; J2405; J7040; J9999

== ENCOUNTER 2024-10-21 07:55 | Oncology outpatient (recurring) (ONCR) | payer OTHER, MEDICAID, SELFPAY ==
[2024-10-21] MEDS: diphenhydrAMINE 25 mg Capsule 50 MG PO (08:36)
[2024-10-21] MEDS: sodium chloride 0.9% 500 ML 75 ML IV (08:36)
[2024-10-21] MEDS: ondansetron 2 mg/ML SDV 2 mL 8 MG IVP (08:38)
[2024-10-21] MEDS: famotidine 20 mg Tablet PO (08:38)
[2024-10-21 09:06] VITALS: BP 115/82; PULSE 82; RESP 16; TEMP 36.6; O2SAT 98
[2024-10-21] MEDS: SODIUM CHLORIDE 0.9% IV (09:06)
[2024-10-21] MEDS: [UNRECOGNIZED DRUG - OTHER] IV (09:06)
[2024-10-21] MEDS: LORazepam 0.5 mg Tablet PO (12:17)
[2024-10-21 13:20] VITALS: BP 115/77; PULSE 103; RESP 16; TEMP 36.4; O2SAT 97
== END 2024-10-21 23:59 | disposition home or self-care (01) ==
LOC: ONCMED 07:55
PROVIDERS: PCP Nurse Practitioner Family; Visit Provider Internal Medicine
DX: E76.219 Morquio mucopolysaccharidoses, unspecified (principal); Z79.899 Other long term (current) drug therapy
CPT/HCPCS: 96375; 96413; 96415; A4222; J1322; J2405; J7040; J9999

== ENCOUNTER 2024-10-28 07:56 | Oncology outpatient (recurring) (ONCR) | payer OTHER, MEDICAID, SELFPAY ==
[2024-10-28 08:21] VITALS: BP 101/58; PULSE 90; RESP 17; TEMP 36.8; O2SAT 96
[2024-10-28] MEDS: sodium chloride 0.9% 500 ML 75 ML IV (08:47)
[2024-10-28] MEDS: ondansetron 2 mg/ML SDV 2 mL 8 MG IVP (08:50)
[2024-10-28] MEDS: famotidine 20 mg Tablet PO (08:52)
[2024-10-28] MEDS: diphenhydrAMINE 25 mg Capsule 50 MG PO (08:53)
[2024-10-28 09:10] VITALS: BP 148/79; PULSE 90; RESP 17; TEMP 36.6; O2SAT 93
[2024-10-28] MEDS: [UNRECOGNIZED DRUG - OTHER] IV (09:10)
[2024-10-28] MEDS: SODIUM CHLORIDE 0.9% IV (09:10)
[2024-10-28 09:25] VITALS: BP 129/85; PULSE 87; RESP 17; O2SAT 96
[2024-10-28 09:40] VITALS: BP 127/85; PULSE 85; RESP 17; TEMP 36.8; O2SAT 95
[2024-10-28 10:25] VITALS: BP 129/93; PULSE 82; RESP 17; O2SAT 92
[2024-10-28] MEDS: LORazepam 0.5 mg Tablet PO (10:43)
[2024-10-28 13:20] VITALS: BP 124/87; PULSE 65; RESP 16; O2SAT 95
== END 2024-10-29 16:39 | disposition home or self-care (01) ==
PROVIDERS: PCP Nurse Practitioner Family; Visit Provider Internal Medicine
DX: E76.219 Morquio mucopolysaccharidoses, unspecified (principal); Z79.899 Other long term (current) drug therapy
CPT/HCPCS: 96375; 96413; 96415; A4222; J1322; J2405; J7040; J9999

== ENCOUNTER 2024-11-04 07:55 | Oncology outpatient (recurring) (ONCR) | payer OTHER, MEDICAID, SELFPAY ==
[2024-11-04] MEDS: ondansetron 2 mg/ML SDV 2 mL 8 MG IVP (08:42)
[2024-11-04 09:03] VITALS: BP 109/76; PULSE 83; RESP 16; TEMP 36.4; O2SAT 98
[2024-11-04] MEDS: SODIUM CHLORIDE 0.9% IV (09:03)
[2024-11-04] MEDS: [UNRECOGNIZED DRUG - OTHER] IV (09:03)
[2024-11-04 09:18] VITALS: BP 120/86; PULSE 85; RESP 16; TEMP 36.5; O2SAT 96
[2024-11-04 09:51] VITALS: BP 120/73; PULSE 85; RESP 16; TEMP 36.7; O2SAT 95
[2024-11-04 10:32] VITALS: BP 112/74; PULSE 80; RESP 16; TEMP 36.2
[2024-11-04 13:15] VITALS: BP 96/64; PULSE 84; RESP 18; TEMP 35.5; O2SAT 94
== END 2024-11-04 23:59 | disposition home or self-care (01) ==
PROVIDERS: PCP Nurse Practitioner Family; Visit Provider Internal Medicine
DX: E76.219 Morquio mucopolysaccharidoses, unspecified (principal); Z79.899 Other long term (current) drug therapy
CPT/HCPCS: 96365; 96366; 96375; A4222; J1322; J2405; J7040; J9999

== ENCOUNTER 2024-11-11 07:42 | Oncology outpatient (recurring) (ONCR) | payer OTHER, MEDICAID, SELFPAY ==
[2024-11-11] VITALS (8 sets, daily range): BP systolic 104–133; BP diastolic 69–88; PULSE 65–81; RESP 16–17; TEMP 36.5–36.7; O2SAT 91–99
[2024-11-11] MEDS: ondansetron 2 mg/ML SDV 2 mL 8 MG IVP (08:25)
[2024-11-11] MEDS: [UNRECOGNIZED DRUG - OTHER] IV (08:58)
[2024-11-11] MEDS: SODIUM CHLORIDE 0.9% IV (08:58)
== END 2024-11-11 23:59 | disposition home or self-care (01) ==
PROVIDERS: PCP Nurse Practitioner Family; Visit Provider Internal Medicine
DX: Z51.11 Encounter for antineoplastic chemotherapy (principal); E76.219 Morquio mucopolysaccharidoses, unspecified; Z79.899 Other long term (current) drug therapy
CPT/HCPCS: 96365; 96366; 96375; A4222; J1322; J2405; J7040; J9999

== ENCOUNTER 2024-11-18 07:55 | Oncology outpatient (recurring) (ONCR) | payer OTHER, MEDICAID, SELFPAY ==
[2024-11-18] VITALS (7 sets, daily range): BP systolic 109–122; BP diastolic 63–88; PULSE 61–100; RESP 16–17; TEMP 36.1–36.6; O2SAT 95–100
[2024-11-18] MEDS: ondansetron 2 mg/ML SDV 2 mL 8 MG IVP (08:30)
[2024-11-18] MEDS: [UNRECOGNIZED DRUG - OTHER] IV (09:15)
[2024-11-18] MEDS: SODIUM CHLORIDE 0.9% IV (09:15)
== END 2024-11-18 23:59 | disposition home or self-care (01) ==
LOC: ONCMED 07:56
PROVIDERS: PCP Nurse Practitioner Family; Visit Provider Internal Medicine
DX: E76.219 Morquio mucopolysaccharidoses, unspecified (principal); Z79.899 Other long term (current) drug therapy
CPT/HCPCS: 96365; 96366; 96375; A4222; J1322; J2405; J7040; J9999

== ENCOUNTER 2024-11-25 07:56 | Oncology outpatient (recurring) (ONCR) | payer OTHER, MEDICAID, SELFPAY ==
[2024-11-25] VITALS (7 sets, daily range): BP systolic 110–139; BP diastolic 61–92; PULSE 81–101; RESP 16–17; TEMP 36.3–36.7; O2SAT 93–96
[2024-11-25] MEDS: ondansetron 2 mg/ML SDV 2 mL 8 MG IVP (08:29)
[2024-11-25] MEDS: [UNRECOGNIZED DRUG - OTHER] IV (09:00)
[2024-11-25] MEDS: SODIUM CHLORIDE 0.9% IV (09:00)
== END 2024-11-25 23:59 | disposition home or self-care (01) ==
LOC: ONCMED 07:56
PROVIDERS: PCP Nurse Practitioner Family; Visit Provider Internal Medicine
DX: E76.219 Morquio mucopolysaccharidoses, unspecified (principal); Z79.899 Other long term (current) drug therapy
CPT/HCPCS: 96413; A4222; J1322; J2405; J7040; J9999

== ENCOUNTER 2024-12-02 08:00 | Oncology outpatient (recurring) (ONCR) | payer OTHER, MEDICAID, SELFPAY ==
[2024-12-02 08:03] VITALS: BMI 39.1
[2024-12-02 08:17] VITALS: BP 110/79; PULSE 98; RESP 16; TEMP 36.1; O2SAT 98
[2024-12-02] MEDS: ondansetron 2 mg/ML SDV 2 mL 8 MG IVP (08:30)
[2024-12-02] MEDS: [UNRECOGNIZED DRUG - OTHER] IV (09:01)
[2024-12-02] MEDS: SODIUM CHLORIDE 0.9% IV (09:01)
[2024-12-02 09:20] VITALS: BP 129/80; PULSE 97; RESP 16; TEMP 36.8; O2SAT 98
[2024-12-02 09:35] VITALS: BP 134/84; PULSE 97; RESP 16; TEMP 36.7; O2SAT 96
[2024-12-02 09:55] VITALS: BP 120/78; PULSE 80; RESP 16; TEMP 36.6; O2SAT 99
[2024-12-02 10:10] VITALS: BP 113/77; PULSE 90; RESP 16; TEMP 36.4; O2SAT 99
[2024-12-02 10:30] VITALS: BP 119/76; PULSE 80; RESP 16; TEMP 36.4; O2SAT 93
== END 2024-12-02 23:59 | disposition home or self-care (01) ==
LOC: ONCMED 08:00
PROVIDERS: PCP Nurse Practitioner Family; Visit Provider Internal Medicine
DX: E76.219 Morquio mucopolysaccharidoses, unspecified (principal); Z79.899 Other long term (current) drug therapy
CPT/HCPCS: 96365; 96366; 96375; J1322; J2405; J9999

== ENCOUNTER 2024-12-09 08:00 | Oncology outpatient (recurring) (ONCR) | payer OTHER, MEDICAID, SELFPAY ==
[2024-12-09] VITALS (8 sets, daily range): BP systolic 110–145; BP diastolic 75–92; PULSE 76–89; RESP 16–17; TEMP 36.2–36.9; O2SAT 92–99
[2024-12-09] MEDS: ondansetron 2 mg/ML SDV 2 mL 8 MG IVP (08:29)
[2024-12-09] MEDS: [UNRECOGNIZED DRUG - OTHER] IV (09:25)
[2024-12-09] MEDS: SODIUM CHLORIDE 0.9% IV (09:25)
== END 2024-12-09 23:59 | disposition home or self-care (01) ==
LOC: ONCMED 08:00
PROVIDERS: PCP Nurse Practitioner Family; Visit Provider Internal Medicine
DX: E76.219 Morquio mucopolysaccharidoses, unspecified (principal); Z79.899 Other long term (current) drug therapy
CPT/HCPCS: 96365; 96366; 96375; A4222; J1322; J2405; J7040; J9999

== ENCOUNTER 2024-12-16 07:54 | Oncology outpatient (recurring) (ONCR) | payer OTHER, MEDICAID, SELFPAY ==
[2024-12-16 08:35] LABS: Hematocrit 36.4 % (36-47); Hemoglobin 11.30 g/dL (11.27-16.99); Mean Corpuscular HGB Conc 31.0 g/dL (30-55); Mean Corpuscular Hemoglobin 27.9 pg (27-33); Mean Corpuscular Volume 89.9 fl (85-98); Nucleated Red Blood Cells % 0 %; Platelet Count 352 10^3/cmm (157-399); Red Blood Count 4.05 10^6/uL (3.85-5.65); White Blood Count 10.45 10^3/uL (3.29-11.43)
[2024-12-16] MEDS: ondansetron 2 mg/ML SDV 2 mL 8 MG IVP (08:39)
[2024-12-16 08:49] LABS: Alanine Aminotransferase 12 U/L (0-33); Albumin Level 3.6 g/dL (3.5-5.2); Alkaline Phosphatase 115 U/L (35-105); Anion Gap 13.5 (5-19); Aspartate Amino Transferase 18 U/L (0-32); Blood Urea Nitrogen 12 mg/dL (6-20); Calcium 9.0 mg/dL (8.5-10.5); Carbon Dioxide 28 mmol/L (22-29); Chloride 99 mmol/L (98-107); Creatinine Clr Calc Pharmacy 119.5321; Ferritin 575 ng/mL (15-150); Globulin 4.0 g/dL (1.3-4.6); Glucose 93 mg/dL (65-115); Iron 39 ug/dL (37-145); Osmolality Calculated 281 mOsm/kg (285-295); Potassium 4.5 mmol/L (3.5-5.1); Sodium 136 mmol/L (136-145); Total Iron Binding Capacity 228 mcg/dl; Total Protein 7.6 g/dL (6.6-8.7); Unsaturated Iron Binding 189 ug/dL (112-347)
[2024-12-16 09:05] LABS: Vitamin B12 384 pg/mL (232-1245)
[2024-12-16 09:27] VITALS: BP 117/83; PULSE 92; RESP 16; TEMP 36.7; O2SAT 94
[2024-12-16] MEDS: [UNRECOGNIZED DRUG - OTHER] 12 MG IV (09:27)
[2024-12-16 09:42] VITALS: BP 124/83; PULSE 96; RESP 16; TEMP 36.6; O2SAT 93
[2024-12-16 09:57] VITALS: BP 123/86; PULSE 93; RESP 16; TEMP 36.7; O2SAT 94
[2024-12-16 10:14] VITALS: BP 118/78; PULSE 96; RESP 16; TEMP 36.1; O2SAT 93
[2024-12-16 10:30] VITALS: BP 120/82; PULSE 86; RESP 16; TEMP 36.8; O2SAT 94
[2024-12-16 10:45] VITALS: BP 135/83; PULSE 87; RESP 16; TEMP 36.9; O2SAT 96
== END 2024-12-16 23:59 | disposition home or self-care (01) ==
PROVIDERS: PCP Nurse Practitioner Family; Visit Provider Internal Medicine
DX: E76.219 Morquio mucopolysaccharidoses, unspecified (principal); D50.8 Other iron deficiency anemias; E03.9 Hypothyroidism, unspecified; E87.6 Hypokalemia; Z79.899 Other long term (current) drug therapy
CPT/HCPCS: 80053; 82607; 82728; 82746; 83010; 83540; 83550; 83615; 85025; 85045; 85651; 86140; 96365; 96366; 96375; 99213; A4222; J1322; J2405; J7040; J9999

== ENCOUNTER 2024-12-23 07:59 | Oncology outpatient (recurring) (ONCR) | payer OTHER, MEDICAID, SELFPAY ==
[2024-12-23 08:19] VITALS: BP 95/64; PULSE 85; RESP 16; TEMP 36.4; O2SAT 96
[2024-12-23] MEDS: ondansetron 2 mg/ML SDV 2 mL 8 MG IVP (08:34)
[2024-12-23 09:02] VITALS: BP 119/88; PULSE 80; RESP 16; TEMP 36.4; O2SAT 95
[2024-12-23] MEDS: [UNRECOGNIZED DRUG - OTHER] IV (09:02)
[2024-12-23] MEDS: SODIUM CHLORIDE 0.9% IV (09:02)
[2024-12-23 09:33] VITALS: BP 113/78; PULSE 81; RESP 16; TEMP 35.9; O2SAT 95
[2024-12-23 09:49] VITALS: BP 107/72; PULSE 80; RESP 16; TEMP 36.6; O2SAT 94
[2024-12-23 10:24] VITALS: BP 130/73; PULSE 79; RESP 16; TEMP 36.5; O2SAT 94
[2024-12-23 13:03] VITALS: BP 147/101; PULSE 65; RESP 20
== END 2024-12-23 23:59 | disposition home or self-care (01) ==
PROVIDERS: PCP Nurse Practitioner Family; Visit Provider Internal Medicine
DX: E76.219 Morquio mucopolysaccharidoses, unspecified (principal); Z79.899 Other long term (current) drug therapy
CPT/HCPCS: 96365; 96366; 96375; A4222; J1322; J2405; J7040; J9999

== ENCOUNTER → 2024-12-24 08:42 | Outpatient (BNVA) | payer OTHER, MEDICAID, SELFPAY | PROVIDERS: PCP Nurse Practitioner Family; Visit Provider Specialist | DX: G43.711 Chronic migraine without aura, intractable, with status migrainosus (principal) | CPT/HCPCS: 64615; J9999 ==

== ENCOUNTER 2024-12-30 07:57 | Oncology outpatient (recurring) (ONCR) | payer OTHER, MEDICAID, SELFPAY ==
[2024-12-30] VITALS (7 sets, daily range): BP systolic 98–128; BP diastolic 60–86; PULSE 74–82; RESP 16–18; TEMP 36–36.4; O2SAT 90–97
[2024-12-30] MEDS: ondansetron 2 mg/ML SDV 2 mL 8 MG IVP (08:25)
[2024-12-30] MEDS: [UNRECOGNIZED DRUG - OTHER] IV (09:10)
[2024-12-30] MEDS: SODIUM CHLORIDE 0.9% IV (09:10)
== END 2025-01-03 23:59 | disposition home or self-care (01) ==
PROVIDERS: PCP Nurse Practitioner Family; Visit Provider Internal Medicine
DX: E76.219 Morquio mucopolysaccharidoses, unspecified (principal); Z79.899 Other long term (current) drug therapy
CPT/HCPCS: 96365; 96366; 96375; 99213; A4222; J1322; J2405; J7040; J9999

== ENCOUNTER 2025-01-06 08:04 | Oncology outpatient (recurring) (ONCR) | payer OTHER, MEDICAID, SELFPAY ==
[2025-01-06] MEDS: ondansetron 2 mg/ML SDV 2 mL 8 MG IVP (08:33)
[2025-01-06] MEDS: [UNRECOGNIZED DRUG - OTHER] IV (09:30)
[2025-01-06] MEDS: SODIUM CHLORIDE 0.9% IV (09:30)
[2025-01-06 09:35] VITALS: BP 99/64; PULSE 82; RESP 17; TEMP 36.3; O2SAT 93
[2025-01-06 13:20] VITALS: BP 112/78; PULSE 78; RESP 17; TEMP 36.6; O2SAT 98
== END 2025-01-06 23:59 | disposition home or self-care (01) ==
PROVIDERS: PCP Nurse Practitioner Family; Visit Provider Internal Medicine
DX: E76.219 Morquio mucopolysaccharidoses, unspecified (principal); Z79.899 Other long term (current) drug therapy
CPT/HCPCS: 96365; 96366; 96375; 96413; 96415; J1322; J2405; J7040; J9999

== ENCOUNTER 2025-01-13 07:55 | Oncology outpatient (recurring) (ONCR) | payer OTHER, MEDICAID, SELFPAY ==
[2025-01-13] VITALS (7 sets, daily range): BP systolic 101–137; BP diastolic 60–91; PULSE 83–92; RESP 17–18; TEMP 36.3–36.9; O2SAT 92–94
[2025-01-13] MEDS: ondansetron 2 mg/ML SDV 2 mL 8 MG IVP (08:47)
[2025-01-13] MEDS: [UNRECOGNIZED DRUG - OTHER] 12 MG IV (09:27)
== END 2025-01-13 23:59 | disposition home or self-care (01) ==
LOC: ONCMED 07:56
PROVIDERS: PCP Nurse Practitioner Family; Visit Provider Internal Medicine
DX: E76.219 Morquio mucopolysaccharidoses, unspecified (principal); Z79.899 Other long term (current) drug therapy
CPT/HCPCS: 96365; 96366; 96375; A4222; J1322; J2405; J7040; J9999

== ENCOUNTER 2025-01-20 07:54 | Oncology outpatient (recurring) (ONCR) | payer OTHER, MEDICAID, SELFPAY ==
[2025-01-20] VITALS (7 sets, daily range): BP systolic 120–157; BP diastolic 80–98; PULSE 76–97; RESP 17–18; TEMP 36.6–36.9; O2SAT 92–96
[2025-01-20] MEDS: ondansetron 2 mg/ML SDV 2 mL 8 MG IVP (08:30)
[2025-01-20] MEDS: [UNRECOGNIZED DRUG - OTHER] 12 MG IV (09:03)
== END 2025-01-20 23:59 | disposition home or self-care (01) ==
PROVIDERS: PCP Nurse Practitioner Family; Visit Provider Internal Medicine
DX: E76.219 Morquio mucopolysaccharidoses, unspecified (principal); Z79.899 Other long term (current) drug therapy
CPT/HCPCS: 96365; 96366; 96375; A4222; J1322; J2405; J7040; J9999

== ENCOUNTER 2025-01-27 07:58 | Oncology outpatient (recurring) (ONCR) | payer OTHER, MEDICAID, SELFPAY ==
[2025-01-27] VITALS (8 sets, daily range): BP systolic 96–120; BP diastolic 56–81; PULSE 94–106; RESP 16–18; TEMP 36.5–37; O2SAT 93–97
[2025-01-27] MEDS: ondansetron 2 mg/ML SDV 2 mL 8 MG IVP (08:35)
[2025-01-27] MEDS: [UNRECOGNIZED DRUG - OTHER] 12 MG IV (08:57)
--- NOTE | 2025-01-27 12:48 | PC.NURSE ---
Lorazepam 0.5 given for complaint of headache.b/p 120/81 polse 94.mm
== END 2025-01-27 23:59 | disposition home or self-care (01) ==
LOC: ONCMED 07:58
PROVIDERS: PCP Nurse Practitioner Family; Visit Provider Internal Medicine
DX: E76.219 Morquio mucopolysaccharidoses, unspecified (principal); Z79.899 Other long term (current) drug therapy
CPT/HCPCS: 96365; 96366; 96375; A4222; J1322; J2405; J7040; J9999

== ENCOUNTER 2025-02-03 07:59 | Oncology outpatient (recurring) (ONCR) | payer OTHER, MEDICAID, SELFPAY ==
[2025-02-03] VITALS (8 sets, daily range): BP systolic 95–133; BP diastolic 67–95; PULSE 94–111; RESP 17–18; TEMP 36.4–36.9; O2SAT 90–98
[2025-02-03] MEDS: ondansetron 2 mg/ML SDV 2 mL 8 MG IVP (08:29)
[2025-02-03] MEDS: [UNRECOGNIZED DRUG - OTHER] 12 MG IV (08:59)
== END 2025-02-03 23:59 | disposition home or self-care (01) ==
LOC: ONCMED 07:59
PROVIDERS: PCP Nurse Practitioner Family; Visit Provider Internal Medicine
DX: E76.219 Morquio mucopolysaccharidoses, unspecified (principal); Z79.899 Other long term (current) drug therapy
CPT/HCPCS: 96365; 96366; 96375; J1322; J2405; J7040; J9999

== ENCOUNTER 2025-02-10 07:59 | Oncology outpatient (recurring) (ONCR) | payer OTHER, MEDICAID, SELFPAY ==
[2025-02-10] VITALS (8 sets, daily range): BP systolic 105–122; BP diastolic 67–83; PULSE 91–111; RESP 17–18; TEMP 36.7–37.1; O2SAT 91–97
[2025-02-10] MEDS: ondansetron 2 mg/ML SDV 2 mL 8 MG IVP (08:24)
[2025-02-10] MEDS: [UNRECOGNIZED DRUG - OTHER] 12 MG IV (08:56)
== END 2025-02-10 23:59 | disposition home or self-care (01) ==
LOC: ONCMED 07:59
PROVIDERS: PCP Nurse Practitioner Family; Visit Provider Internal Medicine
DX: E76.219 Morquio mucopolysaccharidoses, unspecified (principal); Z79.899 Other long term (current) drug therapy
CPT/HCPCS: 96365; 96366; 96375; A4222; J1322; J2405; J7040; J9999

== ENCOUNTER 2025-02-17 08:00 | Oncology outpatient (recurring) (ONCR) | payer OTHER, MEDICAID, SELFPAY ==
[2025-02-17] VITALS (8 sets, daily range): BP systolic 85–139; BP diastolic 56–89; PULSE 83–107; RESP 16; TEMP 36.3–36.8; O2SAT 93–98
[2025-02-17] MEDS: ondansetron 2 mg/ML SDV 2 mL 8 MG IVP (08:28)
[2025-02-17] MEDS: [UNRECOGNIZED DRUG - OTHER] 12 MG IV (09:00)
== END 2025-02-17 23:59 | disposition home or self-care (01) ==
LOC: ONCMED 08:00
PROVIDERS: PCP Nurse Practitioner Family; Visit Provider Internal Medicine
DX: E76.219 Morquio mucopolysaccharidoses, unspecified (principal); Z79.899 Other long term (current) drug therapy
CPT/HCPCS: 96365; 96366; 96375; A4222; J1322; J2405; J7040; J9999

== ENCOUNTER 2025-03-03 08:06 | Oncology outpatient (recurring) (ONCR) | payer OTHER, MEDICAID, SELFPAY ==
[2025-03-03] VITALS (8 sets, daily range): BP systolic 102–128; BP diastolic 65–89; PULSE 71–96; RESP 17–18; TEMP 35.9–36.6; O2SAT 94–99
[2025-03-03] MEDS: ondansetron 2 mg/ML SDV 2 mL 8 MG IVP (08:54)
[2025-03-03] MEDS: [UNRECOGNIZED DRUG - OTHER] 12 MG IV (09:23)
== END 2025-03-03 23:59 | disposition home or self-care (01) ==
LOC: ONCMED 08:06
PROVIDERS: PCP Nurse Practitioner Family; Visit Provider Internal Medicine
DX: E76.219 Morquio mucopolysaccharidoses, unspecified (principal); Z79.899 Other long term (current) drug therapy
CPT/HCPCS: 96365; 96366; 96375; A4222; J1322; J2405; J7040; J9999

== ENCOUNTER 2025-03-10 08:07 | Oncology outpatient (recurring) (ONCR) | payer OTHER, MEDICAID, SELFPAY ==
[2025-03-10 08:30] VITALS: BP 122/76; PULSE 109; RESP 20; TEMP 36.7; O2SAT 96
[2025-03-10] MEDS: ondansetron 2 mg/ML SDV 2 mL 8 MG IVP (08:43)
[2025-03-10] MEDS: [UNRECOGNIZED DRUG - OTHER] 12 MG IV (09:18)
[2025-03-10 09:20] VITALS: BP 122/84; PULSE 102; RESP 18; TEMP 36.6; O2SAT 98
[2025-03-10 09:55] VITALS: BP 132/85; PULSE 91; RESP 17; TEMP 36.6; O2SAT 95
[2025-03-10 10:27] VITALS: BP 106/73; PULSE 93; RESP 17; TEMP 36.6; O2SAT 96
[2025-03-10 10:40] VITALS: BP 120/85; PULSE 95; RESP 17; TEMP 36.6; O2SAT 97
[2025-03-10 13:30] VITALS: BP 108/68; PULSE 84; RESP 17; TEMP 36.6; O2SAT 96
== END 2025-03-10 23:59 | disposition home or self-care (01) ==
LOC: ONCMED 08:07
PROVIDERS: PCP Nurse Practitioner Family; Visit Provider Internal Medicine
DX: E76.219 Morquio mucopolysaccharidoses, unspecified (principal); Z79.899 Other long term (current) drug therapy
CPT/HCPCS: 96375; 96413; 96415; J1322; J2405; J7040; J9999

== ENCOUNTER 2025-03-17 07:43 | Oncology outpatient (recurring) (ONCR) | payer OTHER, MEDICAID, SELFPAY ==
[2025-03-17 08:14] LABS: Hematocrit 40.5 % (36-47); Hemoglobin 12.50 g/dL (11.27-16.99); Mean Corpuscular HGB Conc 30.9 g/dL (30-55); Mean Corpuscular Hemoglobin 28.1 pg (27-33); Mean Corpuscular Volume 91.0 fl (85-98); Nucleated Red Blood Cells % 0 %; Platelet Count 303 10^3/cmm (157-399); Red Blood Count 4.45 10^6/uL (3.85-5.65); White Blood Count 11.09 10^3/uL (3.29-11.43)
[2025-03-17 08:38] LABS: Alanine Aminotransferase 14 U/L (0-33); Albumin Level 3.9 g/dL (3.5-5.2); Alkaline Phosphatase 126 U/L (35-105); Anion Gap 16.5 (5-19); Aspartate Amino Transferase 17 U/L (0-32); Blood Urea Nitrogen 14 mg/dL (6-20); Calcium 9.4 mg/dL (8.5-10.5); Carbon Dioxide 28 mmol/L (22-29); Chloride 96 mmol/L (98-107); Ferritin 503 ng/mL (15-150); Globulin 3.9 g/dL (1.3-4.6); Glucose 114 mg/dL (65-115); Iron 38 ug/dL (37-145); Osmolality Calculated 283 mOsm/kg (285-295); Potassium 4.5 mmol/L (3.5-5.1); Sodium 136 mmol/L (136-145); Total Iron Binding Capacity 246 mcg/dl; Total Protein 7.8 g/dL (6.6-8.7); Unsaturated Iron Binding 208 ug/dL (112-347)
[2025-03-17 08:52] LABS: Vitamin B12 408 pg/mL (232-1245)
[2025-03-17] MEDS: ondansetron 2 mg/ML SDV 2 mL 8 MG IVP (09:04)
[2025-03-17] MEDS: [UNRECOGNIZED DRUG - OTHER] 12 MG IV (09:31)
[2025-03-17 09:39] VITALS: BP 129/90; PULSE 72; TEMP 36.1; O2SAT 97
[2025-03-17 09:52] VITALS: BP 118/72; PULSE 101; TEMP 36.4; O2SAT 96
[2025-03-17 10:06] VITALS: BP 112/74; PULSE 92; TEMP 36.6; O2SAT 97
[2025-03-17 10:38] VITALS: BP 143/91; PULSE 92; TEMP 36.9; O2SAT 96
[2025-03-17 10:56] VITALS: BP 131/70; PULSE 98; TEMP 36.8; O2SAT 96
[2025-03-17 13:50] VITALS: BP 135/90; PULSE 99; RESP 16; TEMP 36.6; O2SAT 93
== END 2025-03-17 23:59 | disposition home or self-care (01) ==
PROVIDERS: Internal Medicine; PCP Nurse Practitioner Family; Visit Provider Internal Medicine
DX: E76.219 Morquio mucopolysaccharidoses, unspecified (principal); D50.8 Other iron deficiency anemias; E03.9 Hypothyroidism, unspecified; Z79.899 Other long term (current) drug therapy
CPT/HCPCS: 80053; 82607; 82728; 82746; 83010; 83540; 83550; 83615; 85025; 96365; 96366; 96375; 99214; A4222; J1322; J2405; J7040; J9999

== ENCOUNTER 2025-03-24 07:54 | Oncology outpatient (recurring) (ONCR) | payer OTHER, MEDICAID, SELFPAY ==
[2025-03-24] VITALS (7 sets, daily range): BP systolic 93–123; BP diastolic 58–87; PULSE 84–110; RESP 17–18; TEMP 36.2–36.6; O2SAT 93–97
[2025-03-24] MEDS: ondansetron 2 mg/ML SDV 2 mL 8 MG IVP (08:30)
[2025-03-24] MEDS: [UNRECOGNIZED DRUG - OTHER] 12 MG IV (09:00)
== END 2025-03-24 23:59 | disposition home or self-care (01) ==
PROVIDERS: PCP Nurse Practitioner Family; Visit Provider Internal Medicine
DX: Z53.9 Procedure and treatment not carried out, unspecified reason; E76.219 Morquio mucopolysaccharidoses, unspecified; Z79.899 Other long term (current) drug therapy
CPT/HCPCS: 96365; 96366; 96375; A4222; J1322; J2405; J7040; J9999

== ENCOUNTER → 2025-03-25 08:43 | Outpatient (BNVA) | payer OTHER, MEDICAID, SELFPAY | PROVIDERS: PCP Nurse Practitioner Family; Visit Provider Specialist | DX: G43.711 Chronic migraine without aura, intractable, with status migrainosus (principal) | CPT/HCPCS: 64615; J9999 ==

== ENCOUNTER 2025-03-31 08:04 | Oncology outpatient (recurring) (ONCR) | payer MEDICARE, MEDICAID, SELFPAY ==
[2025-03-31] MEDS: ondansetron 2 mg/ML SDV 2 mL 8 MG IVP (08:34)
[2025-03-31] MEDS: [UNRECOGNIZED DRUG - OTHER] 12 MG IV (09:20)
[2025-03-31 09:22] VITALS: BP 142/96; PULSE 102; RESP 17; TEMP 37.2
[2025-03-31 09:36] VITALS: BP 148/100; PULSE 103; RESP 16; TEMP 37.3; O2SAT 92
[2025-03-31 09:54] VITALS: BP 145/92; PULSE 93; RESP 16; TEMP 37; O2SAT 98
[2025-03-31 10:42] VITALS: BP 146/90; PULSE 99; RESP 16; TEMP 36.8; O2SAT 93
[2025-03-31 10:56] VITALS: BP 138/99; PULSE 96; RESP 16; TEMP 36.8; O2SAT 95
[2025-03-31 13:24] VITALS: BP 119/74; PULSE 103; RESP 17; TEMP 36.4; O2SAT 95
== END 2025-04-04 23:59 | disposition home or self-care (01) ==
PROVIDERS: PCP Nurse Practitioner Family; Visit Provider Internal Medicine
DX: E76.219 Morquio mucopolysaccharidoses, unspecified; Z79.899 Other long term (current) drug therapy; Z53.9 Procedure and treatment not carried out, unspecified reason
CPT/HCPCS: 96365; 96366; 96375; A4222; J1322; J2405; J7040; J9999

== ENCOUNTER 2025-04-07 08:02 | Oncology outpatient (recurring) (ONCR) | payer MEDICARE, MEDICAID, SELFPAY ==
[2025-04-07] VITALS (8 sets, daily range): BP systolic 123–157; BP diastolic 66–98; PULSE 90–112; RESP 16–18; TEMP 36.7–37.2; O2SAT 91–99
[2025-04-07] MEDS: ondansetron 2 mg/ML SDV 2 mL 8 MG IVP (08:37)
[2025-04-07] MEDS: [UNRECOGNIZED DRUG - OTHER] 12 MG IV (09:10)
== END 2025-04-07 23:59 | disposition home or self-care (01) ==
PROVIDERS: PCP Nurse Practitioner Family; Visit Provider Internal Medicine
DX: E76.219 Morquio mucopolysaccharidoses, unspecified (principal); Z79.899 Other long term (current) drug therapy
CPT/HCPCS: 96365; 96366; 96375; A4222; J1322; J2405; J7040; J9999

== ENCOUNTER 2025-04-14 07:59 | Oncology outpatient (recurring) (ONCR) | payer MEDICARE, MEDICAID, SELFPAY ==
[2025-04-14] VITALS (8 sets, daily range): BP systolic 98–130; BP diastolic 57–87; PULSE 90–102; RESP 16–17; TEMP 36.2–36.8; O2SAT 64–98
[2025-04-14] MEDS: ondansetron 2 mg/ML SDV 2 mL 8 MG IVP (08:28)
[2025-04-14 13:59] LABS: Hematocrit 42.0 % (36-47); Hemoglobin 12.70 g/dL (11.27-16.99); Mean Corpuscular HGB Conc 30.2 g/dL (30-55); Mean Corpuscular Hemoglobin 28.0 pg (27-33); Mean Corpuscular Volume 92.5 fl (85-98); Nucleated Red Blood Cells % 0 %; Platelet Count 307 10^3/cmm (157-399); Red Blood Count 4.54 10^6/uL (3.85-5.65); White Blood Count 10.04 10^3/uL (3.29-11.43)
[2025-04-14 14:26] LABS: Alanine Aminotransferase 8 U/L (0-33); Albumin Level 3.8 g/dL (3.5-5.2); Alkaline Phosphatase 93 U/L (35-105); Anion Gap 14.4 (5-19); Aspartate Amino Transferase 13 U/L (0-32); Blood Urea Nitrogen 14 mg/dL (6-20); Calcium 9.1 mg/dL (8.5-10.5); Carbon Dioxide 26 mmol/L (22-29); Chloride 100 mmol/L (98-107); Globulin 3.2 g/dL (1.3-4.6); Glucose 139 mg/dL (65-115); Osmolality Calculated 285 mOsm/kg (285-295); Potassium 4.4 mmol/L (3.5-5.1); Sodium 136 mmol/L (136-145); Total Protein 7.0 g/dL (6.6-8.7)
[2025-04-14 15:27] LABS: Ferritin 415 ng/mL (15-150); Iron 38 ug/dL (37-145); Total Iron Binding Capacity 227 mcg/dl; Unsaturated Iron Binding 189 ug/dL (112-347)
[2025-04-14 15:43] LABS: Vitamin B12 330 pg/mL (232-1245)
== END 2025-04-14 23:59 | disposition home or self-care (01) ==
PROVIDERS: Internal Medicine; PCP Nurse Practitioner Family; Visit Provider Internal Medicine
DX: E76.219 Morquio mucopolysaccharidoses, unspecified (principal); Z79.899 Other long term (current) drug therapy; D50.8 Other iron deficiency anemias
CPT/HCPCS: 80053; 82607; 82728; 82746; 83010; 83540; 83550; 83615; 85025; 96365; 96366; 96375; A4222; J1322; J2405; J7040; J9999

== ENCOUNTER 2025-04-21 08:04 | Oncology outpatient (recurring) (ONCR) | payer MEDICARE, MEDICAID, SELFPAY ==
[2025-04-21] MEDS: ondansetron 2 mg/ML SDV 2 mL 8 MG IVP (08:33)
[2025-04-21 09:01] VITALS: BP 128/84; PULSE 93; RESP 16; TEMP 35.9; O2SAT 94
[2025-04-21 09:17] VITALS: BP 128/88; PULSE 90; RESP 16; TEMP 36.4; O2SAT 94
[2025-04-21 09:36] VITALS: BP 115/77; PULSE 84; RESP 16; TEMP 36.6; O2SAT 92
[2025-04-21 10:07] VITALS: BP 130/81; PULSE 82; RESP 16; TEMP 36.6; O2SAT 94
[2025-04-21 10:25] VITALS: BP 130/81; PULSE 82; RESP 16; TEMP 36.6; O2SAT 94
[2025-04-21 13:37] VITALS: BP 108/76; PULSE 83; TEMP 36.7; O2SAT 95
== END 2025-04-21 23:59 | disposition home or self-care (01) ==
LOC: ONCMED 08:04
PROVIDERS: PCP Nurse Practitioner Family; Visit Provider Internal Medicine
DX: E76.219 Morquio mucopolysaccharidoses, unspecified (principal); Z79.899 Other long term (current) drug therapy
CPT/HCPCS: 96365; 96366; 96375; A4222; J1322; J2405; J7040; J9999

== ENCOUNTER 2025-04-28 07:28 | Oncology outpatient (recurring) (ONCR) | payer MEDICARE, MEDICAID, SELFPAY ==
[2025-04-28] VITALS (7 sets, daily range): BP systolic 106–137; BP diastolic 59–86; PULSE 68–91; RESP 16–18; TEMP 36.2–37.1; O2SAT 93–100
[2025-04-28] MEDS: ondansetron 2 mg/ML SDV 2 mL 8 MG IVP (07:58)
== END 2025-04-28 23:59 | disposition home or self-care (01) ==
LOC: ONCMED 07:28
PROVIDERS: PCP Nurse Practitioner Family; Visit Provider Internal Medicine
DX: E76.219 Morquio mucopolysaccharidoses, unspecified (principal); Z79.899 Other long term (current) drug therapy
CPT/HCPCS: 96365; 96366; 96375; J1322; J2405; J7040; J9999

== ENCOUNTER 2025-05-05 08:00 | Oncology outpatient (recurring) (ONCR) | payer MEDICARE, MEDICAID, SELFPAY ==
[2025-05-05] MEDS: ondansetron 2 mg/ML SDV 2 mL 8 MG IVP (08:24)
[2025-05-05 09:04] VITALS: BP 126/79; PULSE 81; RESP 17; TEMP 36.8; O2SAT 92
[2025-05-05 09:19] VITALS: BP 137/91; PULSE 92; RESP 17; TEMP 36.8; O2SAT 92
[2025-05-05 09:52] VITALS: BP 131/90; PULSE 85; RESP 18; TEMP 36.6; O2SAT 98
[2025-05-05 10:20] VITALS: BP 142/98; PULSE 101; RESP 18; TEMP 36.6; O2SAT 95
[2025-05-05 13:15] VITALS: BP 142/60; PULSE 70
== END 2025-05-05 23:59 | disposition home or self-care (01) ==
LOC: ONCMED 08:00
PROVIDERS: PCP Nurse Practitioner Family; Visit Provider Internal Medicine
DX: E76.219 Morquio mucopolysaccharidoses, unspecified (principal); Z79.899 Other long term (current) drug therapy
CPT/HCPCS: 96365; 96366; 96375; A4222; J1322; J2405; J7040; J9999